=== PATIENT | female | born 1945 | race Caucasian/White ===

== ENCOUNTER 2023-11-02 16:24 | Emergency (ER) | payer OTHER, SELFPAY ==
[2023-11-02 16:39] VITALS: BP 160/80; PULSE 74; RESP 18; TEMP 36.3; O2SAT 100; BMI 26.4
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
[2023-11-02] MEDS: ACETAMINOPHEN 325 MG TABLET 650 MG PO (17:24)
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
== END 2023-11-02 18:45 | disposition home or self-care (01) ==
PROVIDERS: Emergency Provider Emergency Medicine; PCP Internal Medicine
DX: S16.1XXA Strain of muscle, fascia and tendon at neck level, initial encounter (principal); V44.5XXA Car driver injured in collision with heavy transport vehicle or bus in traffic accident, initial encounter; R51.9 Headache, unspecified; Z79.01 Long term (current) use of anticoagulants
CPT/HCPCS: 70450; 72125; 73030; 99284

== ENCOUNTER 2024-01-11 11:36 | Outpatient (OUT) | payer OTHER, SELFPAY ==
--- NOTE | 2024-01-11 11:41 | XR_ITS ---
The [address] [address] Patient Name: DEBBIE CURRY MRN: [id number] date: 1945 Sex: F Assigned Patient Location: LAB Current Patient Location: Accession/Order Number: [id number] Exam Date: 01/11/2024 11:45 Report Date: 01/12/2024 08:27 At the request of: RASHIDA ELDRIDEG Procedure: XR abdomen 1V EXAMINATION: XR abdomen 1V HISTORY: Gross Hematuria R31.0 COMPARISON: XR KUB 12/12/2022 FINDINGS: KIDNEY/URETER - RIGHT: 5 mm stone projecting over mid body. KIDNEY/URETER - LEFT: Several small stones projecting over superior pole. PELVIS: No appreciable ureteral stones. Stable pelvic calcifications favoring phleboliths. BOWEL: No abnormal dilation or deviation. BONES: No acute abnormality. Prior mechanical fusion and posterior decompression L4-5. OTHER: Negative. No abnormal gaseous collections. XR/XR abdomen 1V IMPRESSION: 1. Grossly stable bilateral nephrolithiasis. Electronically authenticated by: DERRICK ARANDA Date: 01/12/2024 08:27
== END 2024-01-11 11:37 | disposition home or self-care (01) ==
LOC: LAB 11:38
PROVIDERS: PCP Internal Medicine; Visit Provider Urology
DX: R31.0 Gross hematuria (principal); N20.0 Calculus of kidney
CPT/HCPCS: 74018; 87086; 87150; 87186

== ENCOUNTER 2024-06-10 11:00 | Outpatient (OUT) | payer OTHER, SELFPAY ==
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
--- OUTSIDE RECORDS SUMMARY | 2024-06-10 11:21 | XMS_ITS | CCD ---
Author Organization [facility] Care Team Providers Care Brazer Resistance Name Role Phone MD Jared Hedrick Primary Care Provider RAUL Hauser Attending Provider Filemon Villarreal Unavailable MAYURI BROWN Admitting Unavailable MAYURI BROWN Attending Unavailable FLORIDALMA, DR COLEMAN Primary Care Unavailable MAYURI BROWN Consulting Unavailable CHENTE ., DR FIELD Admitting Unavailable CHENTE ., DR FIELD Attending Unavailable FLORIDALMA, DR COLEMAN Primary Care Unavailable CHENTE ., DR FIELD Consulting Unavailable AUSTIN, DR ALFONSO Purcell Consulting Unavailable FLORIDALMA, DR COLEMAN Primary Care Unavailable FOZIA, DR AYALA Lujan Admitting Unavailable FOZIA, DR AYALA Lujan Attending Unavailable FOZIA, DR AYALA Lujan Consulting Unavailable JARED HEDRICK Primary Care Physician [phone] LOVE PATEL Attending Unavailable PCP, UNKNOWN Primary Care Unavailable DIANA RING Admitting Unavailable NADIANA HUI Attending Unavailable MICHAEL MAYORGA Referring Unavailable GERALD HUBBARD Attending Unavailable KATELIN ORTEGA Attending Unavailable JARED HEDRICK Attending Unavailable JARED HEDRICK Referring Unavailable WAGNER ALVAREZ Attending Unavailable MELLISA PAPPAS Attending Unavailable JARED HEDRICK Referring Unavailable Michael Mayorga Attending Unavailable ÁNGELA LEWIS Attending Unavailable Rashida ELDRIDGE Referring Unavailable Rashida ELDRIDGE Attending Unavailable Mukesh Mohamad ALuis Alberto Admitting Unavailable Monancy Mohamad ALuis Alberto Referring Unavailable Monancy Mohamad ALuis Alberto Attending Unavailable Dulce Holguin Attending Unavailable Allergies Allergy Classification Reported Allergen(s) Allergy Type Date of Onset Reaction(s) Facility (10 sources) Ciprofloxacin; Translations: [ciprofloxacin] Drug Allergy 04-07-20 15 Diarrhea, Unknown [facility] (1 source) Clindamycin Drug Allergy 04-29-20 21 Diarrhea [facility] (9 sources) Codeine; Translations: [Codeine] Drug Allergy 04-07-20 15 Vomiting, Nausea [facility] (1 source) levoFLOXacin Drug Allergy 05-24-20 22 Unknown Reaction [facility] (15 sources) Meperidine; Translations: [meperidine] Drug Allergy 04-07-20 15 Anxiety, Unknown, hyper [facility] (9 sources) moxifloxacin; Translations: [moxifloxacin] Drug Allergy 04-07-20 15 Diarrhea, Unknown [facility] (9 sources) Penicillins; Translations: [Penicillins] Allergy to substance 07-19-20 12 Rash [facility] (10 sources) Phenazopyridine; Translations: [phenazopyridine] Drug Allergy 07-19-20 12 Vomiting, Unknown, Nausea [facility] (16 sources) Promethazine; Translations: [promethazine] Drug Allergy 07-19-20 12 Hives, Unknown, AOF [facility] (1 source) Scallop - dietary Allergy to substance 04-29-20 [place] [facility] (2 sources) Sulfonamides (Antibiotic); Translations: [SULFA (SULFONAMIDE ANTIBIOTICS)] Allergy to substance 04-29-20 21 [facility] (13 sources) telithromycin; Translations: [telithromycin] Drug Allergy 04-07-20 15 Unknown Reaction, Unknown [facility] (11 sources) Tobramycin; Translations: [tobramycin] Drug Allergy 07-19-20 12 Hives, Unknown, Nausea [facility] (6 sources) traMADol; Translations: [tramadol] Drug Allergy 04-07-20 15 Vomiting, Unknown [facility] (2 sources) Iodinated Contrast Media; Translations: [IODINATED CONTRAST MEDIA] Propensity to adverse reactions 04-29-20 21 Fl[place] [facility] (1 source) avalox Allergy to substance 05-24-20 22 Unknown Reaction [facility] (1 source) phendzopyridine Allergy to substance 05-24-20 22 Unknown Reaction [facility] (1 source) uricet Allergy to substance 05-24-20 22 Unknown Reaction [facility] (2 sources) Codeine Drug Allergy Unknown [facility] [employer] Other (2 sources) Sulfacetamide / Sulfur Drug Allergy Unknown [employer] Other (2 sources) Dye SKILLED NURSING Green 3 Drug allergy Unknown [employer] Other (2 sources) Penicillian V Potassium Propensity to adverse reactions Unknown [employer] Other (2 sources) Dye SKILLED NURSING Blue [address] [facility] [employer] Other (2 sources) Dye SKILLED NURSING Yellow [address] [facility] [employer] Other (2 sources) Dye SKILLED NURSING Red 40 (Allura Red) Drug allergy Unknown [facility] [employer] Other (1 source) Ciprofloxacin Drug Allergy 04-07-20 15 [facility] (2 sources) Meperidine; Translations: [Demerol] Drug Allergy 04-07-20 15 [facility] (1 source) moxifloxacin Drug Allergy 04-07-20 15 [facility] (1 source) potassium citrate Drug Allergy 04-07-20 15 [facility] (1 source) Protamines Drug Allergy 04-07-20 15 [facility] (5 sources) Shellfish; Translations: [shellfish] Drug allergy (disorder) 04-07-20 15 Unknown [facility] (1 source) Sulfonamides (Antibiotic) Drug allergy (disorder) 04-07-20 15 [facility] (2 sources) telithromycin; Translations: [Ketek] Drug Allergy 04-07-20 15 [facility] (7 sources) Nalbuphine; Translations: [nalbuphine] Drug Allergy 04-11-20 23 rash [facility] (6 sources) potassium citrate; Translations: [potassium citrate] Drug Allergy 04-07-20 15 Unknown [facility] (7 sources) Protamine Sulfate (MCC); Translations: [protamine] Drug Allergy 04-07-20 15 Unknown [facility] (2 sources) Shellfish; Translations: [shellfish] Propensity to adverse reactions to substance 04-07-20 15 Unknown [facility] (6 sources) Sulfonamides (Antibiotic); Translations: [sulfa drugs] Drug allergy Eruption of skin (disorder) [facility] (6 sources) iodinated radiocontrast dyes; Translations: [iodinated radiocontrast agents] Drug allergy Nausea [facility] (1 source) SHELLFISH CONTAINING PRODUCTS; Translations: [SHELLFISH CONTAINING PRODUCTS] Propensity to adverse reactions to drug (disorder) 04-07-20 15 [facility] (1 source) Phenazopyridine; Translations: [Pyridium] Drug Allergy [facility] (1 source) Promethazine; Translations: [Phenergan] Drug Allergy [facility] Medications Current Medications Medication Drug Class(es) Dates Sig (Normalized) Sig (Original) acetaminophen 500 mg oral tablet (2 sources) Start: 06-28-2018 take 500 mg by mouth every six hours acetaminophen 500 mg, Oral, q6hr, Refills(s) 0, Pain Start Date: 02/04/19 Status: Ordered bifidobacterium infantis 4 mg oral capsule (1 source) Start: 04-18-2024 take 1 capsule by mouth once daily Align 4 mg oral capsule 4 mg = 1 cap(s), Oral, Daily, # 28 cap(s), Refills(s) 4, Pharmacy: [facility]/pharmacy #[id number], 162, cm, 04/18/24 9:43:00 EDT, Height/Length Dosing, 66, kg, 04/18/24 9:43:00 EDT, Weight Dosing Start Date: 04/18/24 Status: Ordered cholecalciferol 0.05 mg oral capsule (1 source) Vitamin D Start: 11-09-2018 take 1 capsule by mouth once daily Cholecalciferol (Vitamin D3) (Vitamin D3) 2,000 unit Capsule Active 2000 UNIT PO Daily November 09, 2018 1:00am citalopram 10 mg oral tablet (8 sources) Serotonin Reuptake Inhibitor Start: 06-28-2018 take 10 mg by mouth once daily citalopram 10 mg, Oral, Daily, Refills(s) 0, Depression Start Date: 02/04/19 Status: Ordered clobetasol propionate 0.0005 mg/mg topical ointment (5 sources) Corticosteroid Start: 12-12-2022 apply 30 g topically every twelve hours as needed for pain clobetasol propionate 0.05% top oint See Instructions, 30 gm, Refill(s) 2, Apply to affected area every 12 hours as needed for pain/discomfort., [id number], 165, cm, 12/12/22 13:46:00 EST, Height/Length Dosing, 70.4, kg, 12/12/22 13:46:00 EST, Weight Dosing Start Date: 12/12/22 Status: Ordered colesevelam hydrochloride 625 mg oral tablet (2 sources) Bile Acid Sequestrant Start: 04-18-2024 take 3 tablets by mouth twice daily Welchol 625 mg Tab 1,875 mg = 3 tab(s), Oral, BID, # 180 tab(s), Refills(s) 0, Pharmacy: [facility], 162, cm, 04/18/24 9:43:00 EDT, Height/Length Dosing, 66, kg, 04/18/24 9:43:00 EDT, Weight Dosing Start Date: 04/18/24 Status: Ordered cyclobenzaprine hydrochloride 10 mg oral tablet (2 sources) Muscle Relaxant take 0.5-1 tablets by mouth three times daily as needed Cyclobenzaprine HCl 10 MG TAKE 1/2-1 TABLET BY MOUTH 3 TIMES A DAY NEEDED Oral for 30 Active dicyclomine hydrochloride 20 mg oral tablet (2 sources) Anticholinergic Start: 04-25-2021 take 20 mg by mouth four times daily Dicyclomine Active 20 MG PO Four times daily April 25, 2021 12:00am Start: 06-28-2018 End: 11-09-2018 take 10 mg by mouth four times daily Dicyclomine Discontinued 10 MG PO Four times daily June 28, 2018 12:00am November 09, 2018 4:51pm docusate sodium 100 mg oral capsule (1 source) Start: 04-29-2021 take 1 capsule by mouth twice daily Docusate Sodium (Colace) 100 mg capsule Active 100 MG PO Twice daily 60 April 29, 2021 12:00am doxycycline monohydrate 100 mg oral tablet (2 sources) Tetracycline- class Drug Start: 04-18-2024 doxycycline monohydrate 100 mg oral tablet Refills(s) 0 Start Date: 04/18/24 Status: Ordered Start: 12-12-2022 take 1 capsule by mo [facility] once daily doxycycline hyclate 100 mg Cap 100 mg = 1 cap(s), Oral, Daily, Take 1 pill the day before the procedure and 1 pill after the procedure, # 2 cap(s), Refills(s) 0, Pharmacy: [id number], 165, cm, 12/12/22 13:46:00 EST, Height/Length Dosing, 70.4, kg, 12/12/22 13:46:00 EST, W... Start Date: 12/12/22 Status: Ordered empagliflozin 25 mg / linagliptin 5 mg oral tablet (2 sources) Dipeptidyl Peptidase 4 Inhibitor, Sodium-Glucose Cotransporter 2 Inhibitor Start: 01-03-2020 take 1 tablet by mouth once daily Empagliflozin-Linagliptin (Glyxambi) 25-5 mg Tablet Active 1 TAB PO Daily April 25, 2021 12:00am 12 hr fexofenadine hydrochloride 60 mg / pseudoephedrine hydrochloride 120 mg extended release oral tablet (1 source) alpha-Adrenergic Agonist, Histamine-1 Receptor Antagonist Start: 06-28-2018 take 1 tablet by mouth every twelve hours, then take 1 tablet by mouth every twelve hours Fexofenadine-Pseudoephedrin e (Haydee-D 12 Hour) 60-120 mg Tablet Extended Release 12 Hr Active 1 TAB PO Q12H June 28, 2018 12:00am Fish Oils (2 sources) take 1 capsule by mouth once daily Fish Oil 1200 MG 1 capsule Orally Once a day for 30 day(s) Active glimepiride 4 mg oral tablet (7 sources) Sulfonylurea Start: 12-12-2022 take 1 tablet by mouth once daily glimepiride 4 mg Tab 4 mg = 1 tab(s), Oral, Daily, Blood glucose Start Date: 12/12/22 Status: Ordered Start: 06-28-2018 take 4 mg by mouth once daily Glimepiride Active 4 MG PO Daily June 28, 2018 12:00am take 2 tablets by [facility] every twenty-four hours Glimepiride 4 MG 2 tablets Orally Once a day Active Glyxamb1 25/5 mg 25/5 mg (2 sources) Glyxamb1 25/5 mg 25/5 mg 90 orally daily Active hydroCHLOROthiazide 25 mg oral tablet (8 sources) Thiazide Diuretic Start: 018 take 1 tablet by mouth once daily hydrochlorothiazide 25 mg Tab 25 mg = 1 tab(s), Oral, Daily, Refills(s) 0, High blood pressure Start Date: 03/22/23 Status: Ordered levothyroxine (9 sources) l-Thyroxine Start: 019 take 88 ug by mouth once daily levothyroxine 88 mcg, Oral, Daily, Refills(s) 0, Thyroid Start Date: 02/04/19 Status: Ordered Start: 02-04-2019 levothyroxine 100 microgram, Oral, Daily, Refills(s) 0, Thyroid Start Date: 02/04/19 Status: Ordered Start: 06-28-2018 take 88 ug by mouth once daily Levothyroxine Active 88 MCG PO Daily June 28, 2018 12:00am Start: 06-28-2018 End: 11-09-2018 take 1 tablet by mouth once daily Levothyroxine (Levoxyl) 100 mcg Tablet Discontinued 100 MCG PO Daily June 28, 2018 12:00am November 09, 2018 4:52pm take 1 tablet by [facility] once daily in the morning Levothyroxine Sodium 100 MCG 1 tablet on an empty stomach in the morning Orally Once a day Active Magnesium (2 sources) take 2 tablets by mouth once daily Magnesium 200 MG 2 tablets with a meal Orally Once a day unsure of dose Active metFORMIN hydrochloride 500 mg oral tablet (1 source) Biguanide Start: 04-29-20 21 take 500 mg by mouth once daily Metformin Active 500 MG PO Daily 05 05April 29, 2021 12:00am mirtazapine 15 mg oral tablet (8 sources) Start: 06-28-20 18 take 15 mg by mouth once daily at bedtime mirtazapine 15 mg, Oral, Once a day (at bedtime), Refills(s) 0, Depression Start Date: 02/04/19 Status: Ordered nitrofurantoin, macrocrystals 25 mg / nitrofurantoin, monohydrate 75 mg oral capsule (2 sources) Nitrofuran Antibacterial Start: 01-15-20 24 End: 01-20-20 24 take 1 capsule by mouth twice daily Macrobid 100 mg Cap 100 mg = 1 cap(s), Oral, BID, X 5 day(s), # 10 cap(s), Refills(s) 0, Pharmacy: [facility]/pharmacy #[id number], 162, cm, 03/22/23 13:18:00 EDT, Height/Length Dosing, 68.6, kg, 03/22/23 13:18:00 EDT, Weight Dosing Start Date: 01/15/24 Stop Date: 01/20/24 Status: Ordered Start: 04-25-2021 take 1 capsule by mo [facility] every twelve hours at mealtime Nitrofurantoin Monohyd/M-Cryst (Macrobid) 100 mg Capsule Active 100 MG PO Q12H April 25, 2021 12:00am Administer with a meal/food: swallow whole; do not open, crush, dissolve, or chew omeprazole 40 mg delayed release oral capsule (3 sources) Proton Pump Inhibitor Start: 02-05-2019 take 1 capsule by mouth once daily omeprazole 40 mg Cap-DR 40 mg = 1 cap(s), Oral, Daily, # 30 cap(s), Refills(s) 1, [id number] Start Date: 02/05/19 Status: Ordered ondansetron 4 mg oral tablet (1 source) Serotonin-3 Receptor Antagonist Start: 04-30-2021 take 1 tablet by mouth every eight hours Ondansetron Hcl (Zofran) 4 mg tablet Active 4 MG PO Q8H 14 April 30, 2021 12:00am oxybutynin chloride 5 mg oral tablet (2 sources) Cholinergic Muscarinic Antagonist oxyBUTYnin Chloride 5 MG as directed Orally unsure of dose Active pantoprazole 40 mg delayed release oral tablet (3 sources) Proton Pump Inhibitor Start: 01-17-2024 End: 10-13-2024 take 1 tablet by mouth once daily Pantoprazole [address] Tab 40 mg = 1 tab(s), Oral, Daily, X 90 day(s), # 90 tab(s), Refills(s) 2, Pharmacy: [facility], 162.5, cm, 01/17/24 14:37:00 EDT, Height/Length Dosing, 67, kg, 01/17/24 14:37:00 EDT, Weight Dosing Start Date: 01/17/24 Stop Date: 10/13/24 Status: Ordered pioglitazone 15 mg oral tablet (4 sources) Peroxisome Proliferator Receptor alpha Agonist, Peroxisome Proliferator Receptor gamma Agonist, Thiazolidinedione Start: 03-22-2023 take 1 tablet by mouth once daily pioglitazone 15 mg Tab 15 mg = 1 tab(s), Oral, Daily, Refills(s) 0, Blood glucose Start Date: 03/22/23 Status: Ordered PreserVision AREDS (7 sources) Start: 12-12-2022 PreserVision AREDS See Instructions, Refill(s) 0, Prophylaxis Start Date: 12/12/22 Status: Ordered Start: 12-12-2022 PreserVision A REDS Refill(s) 0 Start Date: 12/12/22 Status: Ordered PreserVision ARE DS as directed Orally Active Psyllium Husk (Metamucil) 0.4 gram capsule (1 source) Start: 04-29-2021 Psyllium Husk (Metamucil) 0.4 gram capsule Active 0.4 GM PO Daily April 29, 2021 12:00am rivaroxaban (9 sources) Factor Xa Inhibitor Start: 08-14-2023 take 1 tablet by mouth once daily Xarelto 20 20 one tablet PO Daily for 90 days Jul, Active Start: 04-20-2022 take 1 tablet by [facility] every twenty-four hours Xarelto 10 MG 1 tablet Orally Once a day for 30 day(s) Mar, Active Start: 01-03-2020 take 1 tablet by [facility] once daily in the evening Xarelto 20 mg oral tablet 20 mg = 1 tab(s), Oral, qPM, Refills(s) 0, Blood Thinner Start Date: 01/03/20 Status: Ordered Start: 12-13-2019 End: 04-25-2021 take 1 tablet by mouth twice daily at mealtime Rivaroxaban (Xarelto) 15 mg tablet Discontinued 15 MG PO Twice daily 42 December 13, 2019 1:00am April 25, 2021 7:55am must administer with a meal/food semaglutide 7 mg oral tablet (4 sources) Start: 01-17-2024 Rybelsus 7 mg oral tablet Refills(s) 0, Blood glucose Start Date: 01/17/24 Status: Ordered Rybelsus 7 MG 1 tablet at least 30 minutes before first food, beverage or other oral medicine of the day Orally Once a day Active simvastatin 20 mg oral tablet (6 sources) HMG-CoA Reductase Inhibitor Start: 06-28-2018 simvastatin See Instructions, 20 mg Oral Monday, Monday, Monday, Refills(s) 0, High cholesterol Start Date: 02/04/19 Status: Ordered solifenacin succinate 5 mg oral tablet (10 sources) Cholinergic Muscarinic Antagonist Start: 01-10-2023 take 1 tablet by mouth once daily Vesicare 5 mg Tab 5 mg = 1 tab(s), Oral, Daily, # 90 tab(s), Refills(s) 3, Pharmacy: [id number], 165, cm, 12/12/22 13:46:00 EST, Height/Length Dosing, 70.4, kg, 12/12/22 13:46:00 EST, Weight Dosing Start Date: 01/10/23 Status: Ordered Start: 12-14-2022 take 1 tablet by [facility] every other day Vesicare 5 mg Tab 5 mg = 1 tab(s), Oral, Every other day, # 30 tab(s), Refills(s) 11, Pharmacy: [id number], 165, cm, 12/12/22 13:46:00 EST, Height/Length Dosing, 70.4, kg, 12/12/22 13:46:00 EST, Weight Dosing Start Date: 12/14/22 Status: Ordered Tylenol 8 Hour 650 MG (2 sources) take 1 tablet by mouth every eight hours as needed Tylenol 8 Hour 650 MG 1 tablet as needed Orally every 8 hrs Active Vitamin D3 (5 sources) Start: 01-03-2020 take 50 ug by mouth once daily Vitamin D3 50 mcg, Oral, Daily, Refills(s) 0, Prophylaxis Start Date: 01/03/20 Status: Ordered Start: 01-03-2020 Vitamin D3 Ref ills(s) 0 Start Date: 01/03/20 Status: Ordered Vitamin D3 [id number] UNIT/GM (2 sources) Vitamin D3 76391 00 UNIT/GM as directed Active Completed/Discontinued Medications Medication Drug Class(es) Dates Sig (Normalized) Sig (Original) ascorbic acid 113 mg / beta carotene 7160 mg / cuprous oxide 0.4 mg / dl-alpha tocopheryl acetate 100 unt / zinc oxide 17.4 mg oral tablet (1 source) Vitamin C Start: 06-28-2018 End: 04-25-2021 take 2 tablets by mouth twice daily Vitamins A,C,U-Rstc-Fzwrvh (Preservision Areds) 7,160-113-100 [id number] Tablet Discontinued 2 TAB PO Twice daily June 28, 2018 12:00am April 25, 2021 7:55am SITagliptin 100 mg oral tablet (1 source) Dipeptidyl Peptidase 4 Inhibitor Start: 06-28-2018 End: 04-25-2021 take 1 tablet by mouth once daily Sitagliptin (Januvia) 100 mg Tablet Discontinued 100 MG PO Daily June 28, 2018 12:00am April 25, 2021 7:55am Problems Active Problems Problem Classification Problem Date Documented Da te Episodic/Chronic Abdominal pain (4 sources) Abdominal pain; Translations: [Unspecified abdominal pain] Onset: 01-17-2024 04-25-2021 Episodic Calculus of urinary tract (9 sources) Calculus of kidney; Translations: [Kidney stone] Onset: 12-12-2022 Episodic Cataract (4 sources) Age-related nuclear cataract, left eye; Translations: [AGE-REL NUCLEAR CATARACT LT EYE] Onset: 03-03-2022 Chronic Diabetes mellitus without complication (7 sources) Diabetes mellitus; Translations: [Type 2 diabetes mellitus without complications] Onset: 04-20-2022 04-29-2021 Chronic Diabetes mellitus without complication (6 sources) Glycosuria; Translations: [Glycosuria] 04-29-2021 Episodic Disorders of lipid metabolism (6 sources) Pure hypercholesterolemia, unspecified; Translations: [Hyperlipidemia] Onset: 03-09-2022 12-25-2019 Chronic Esophageal disorders (12 sources) Mejia's esophagus; 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] Onset: 01-17-2024 Chronic Essential hypertension (6 sources) Essential (primary) hypertension; Translations: [Hypertensive disorder] Onset: 04-20-2022 12-25-2019 Chronic Fluid and electrolyte disorders (1 source) Absolute hypovolemia; Translations: [Hypovolemia] 04-29-2021 Episodic Genitourinary symptoms and ill-defined conditions (20 sources) Incontinence; Translations: [Incontinence without sensory awareness] 01-03-2020 Chronic Genitourinary symptoms and ill-defined conditions (20 sources) Delay when starting to pass urine; Translations: [Increased frequency of urination] 01-03-2020 Episodic Noninfectious gastroenteritis (4 sources) Noninfectious enteritis; Translations: [Noninfective gastroenteritis and colitis, unspecified] Onset: 01-17-2024 Episodic Osteoarthritis (5 sources) Osteoarthritis 12-25-2019 Chronic Other and unspecified benign neoplasm (4 sources) History of polyp of colon; Translations: [Personal history of colonic polyps] Onset: 01-17-2024 Episodic Other and unspecified benign neoplasm (1 source) Lipoma of intra-abdominal organs; Translations: [Benign lipomatous neoplasm of intra-abdominal organs] Onset: 04-18-2024 Episodic Other and unspecified benign neoplasm (1 source) Lipoma of stomach 04-18-2024 Episodic Other diseases of bladder and urethra (5 sources) Urethral stricture 12-25-2019 Episodic Other diseases of kidney and ureters (5 sources) Cyst of kidney 01-03-2020 Episodic Other disorders of stomach and duodenum (2 sources) Disease of stomach and duodenum, unspecified; Translations: [Disease of stomach and duodenum, unspecified] Onset: 02-23-2024 Episodic Other gastrointestinal disorders (1 source) Constipation; Translations: [Constipation, unspecified] 04-29-2021 Episodic Other gastrointestinal disorders (4 sources) Dysphagia; Translations: [Dysphagia, unspecified] Onset: 01-17-2024 Episodic Other gastrointestinal disorders (6 sources) Incontinence of feces; Translations: [Full incontinence of feces] Onset: 01-17-2024 Episodic Other non-traumatic joint disorders (2 sources) Pain in right shoulder; Translations: [Pain in right shoulder] Onset: 02-20-2023 Episodic Other non-traumatic joint disorders (2 sources) Pain in left shoulder; Translations: [Pain in left shoulder] Onset: 02-20-2023 Episodic Other nutritional; endocrine; and metabolic disorders (1 source) Abnormal weight loss; Translations: [Abnormal weight loss] Onset: 01-17-2024 Episodic Other nutritional; endocrine; and metabolic disorders (3 sources) Unintentional weight loss 01-17-2024 Episodic Other screening for suspected conditions (not mental disorders or infectious disease) (1 source) Increased ketone bodies; Translations: [Other specified abnormal findings of blood chemistry] 04-29-2021 Episodic Phlebitis; thrombophlebitis and thromboembolism (5 sources) Personal history of other venous thrombosis and embolism; Translations: [H/O: thrombosis] Onset: 04-20-2022 03-22-2023 Episodic Pulmonary heart disease (3 sources) Pulmonary thromboembolism; Translations: [Other pulmonary embolism without acute cor pulmonale] 12-13-2019 Episodic Residual codes; unclassified (1 source) Acquired absence of organ; Translations: [Acquired absence of other specified parts of digestive tract] Onset: 04-18-2024 Episodic Thyroid disorders (5 sources) Hypothyroidism 12-25-2019 Chronic Unclassified (5 sources) Drug therapy finding 01-03-2020 Unclassified (3 sources) Finding of sensation of abdomen 01-17-2024 Urinary tract infections (5 sources) Chronic cystitis 12-25-2019 Chronic Urinary tract infections (11 sources) Acute urinary tract infection; Translations: [Urinary tract infection, site not specified] 04-25-2021 Episodic Past or Other Problems Problem Classification Problem Date Documented Da te Episodic/Chronic Other aftercare (1 source) senior living (current) use of anticoagulants; Translations: [SENIOR LIVING CURRNT USE ANTICOAGULANTS] Onset: 04-20-2022 Episodic Other aftercare (1 source) Other snf (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; Translations: [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 DRUG THERAPY] Onset: 04-20-2022 Episodic Other upper respiratory disease (4 sources) Epistaxis; Translations: [EPISTAXIS] Onset: 04-18-2022 Episodic Residual codes; unclassified (1 source) Acquired absence of other specified parts of digestive tract; Translations: [ACQ ABSENCE OTH PART DIGESTV TRACT] Onset: 03-09-2022 Episodic Results Test Name Value Interpretation Reference Range Facility Ambulatory Visit Summaryon 0 04-18-2024 Ambulatory Visit Summary CHELSEA CURRY :1945 Visit Date:04/18/2024 Ambulatory Visit Instructions Your Diagnosis Abdominal cramping S/P cholecystectomy Stool incontinence Lipoma of stomach Your Care Team Attending Physician - Mukesh SILVER, Michael Canseco Primary Care Physician - JARED HEDRICK MD This Is Your Medications List bifidobacterium infantis (Align 4 mg oral capsule) colesevelam (Welchol 625 mg Tab) colesevelam (Welchol 625 mg Tab) Contact prescribing physician if questions or concerns cholecalciferol (Vitamin D3) citalopram clobetasol topical (clobetasol propionate 0.05% top oint) doxycycline (doxycycline monohydrate 100 mg oral tablet) glimepiride (glimepiride 4 mg Tab) hydrochlorothiazide (hydrochlorothiazide 25 mg Tab) levothyroxine mirtazapine multivitamin with minerals (PreserVision AREDS) pantoprazole (Pantoprazole [address] Tab) pioglitazone (pioglitazone 15 mg Tab) rivaroxaban (Xarelto 20 mg oral tablet) semaglutide (Rybelsus 7 mg oral tablet) simvastatin solifenacin (Vesicare 5 mg Tab) solifenacin (Vesicare 5 mg Tab) Procedures Performed Colonoscopy (01/30/2024), Esophagogastroduodenoscop y (01/30/2024), Colonoscopy (01/13/2017), Cystoscopy (04/27/2016), Cystoscopic removal of ureteric stent (04/20/2012), Cystoscopic insertion of ureteric stent (04/06/2012), ESWL - Extracorporeal shockwave lithotripsy for renal calculus (04/01/2012), Cystoscopy and retrograde pyelography (09/29/2010), ESWL - Extracorporeal shockwave lithotripsy for renal calculus (12/31/2009), ESWL - Extracorporeal shockwave lithotripsy for renal calculus (12/16/2009), Cystoscopic laser lithotripsy of ureteric calculus (07/2009), Cystoscopic removal of ureteric stent (07/30/2009), Cystoscopic insertion of ureteric stent (06/2009), Rotator cuff repair (02/2008), Cystoscopic laser lithotripsy of ureteric calculus (11/2006), Cystoscopic removal of ureteric stent (11/2006), ESWL - Extracorporeal shockwave lithotripsy for renal calculus (01/2006), ESWL - Extracorporeal shockwave lithotripsy for renal calculus (03/2005), Cystoscopic insertion of ureteric stent (08/2002), ESWL - Extracorporeal shockwave lithotripsy for renal calculus (08/2002), Cystoscopic insertion of ureteric stent (07/2002), ESWL - Extracorporeal shockwave lithotripsy for renal calculus (07/2002), Laminectomy with spinal fusion (1998), Appendectomy, Carpal tunnel release, Cholecystectomy, Excision of bursa, Hysterectomy, Nasal sinus procedure, Operative procedure on hand, Repair of meniscus, T and A (tonsillectomy and adenoidectomy) postoperative education. Discharge Vitals Heart Rate (Peripheral) 84 Respiratory Rate 16 Blood Pressure 119/68 Height 162 cm Height 64 in Weight 66 kg Weight 145.2 lb BMI 25.15 Medications What How Much When Why Instructions New bifidobacterium infantis (Align 4 mg oral capsule) 1 Capsules By Mouth Every day Abdominal cramping S/P cholecystectomy Stool incontinence Lipoma of stomach Refills: 4 Pickup at [facility]/pharmacy #[id number] New colesevelam (Welchol 625 mg Tab) 3 Tablets By Mouth 2 times a day Abdominal cramping S/P cholecystectomy Stool incontinence Lipoma of stomach Refills: 3 Pickup at [facility]/pharmacy #[id number] New colesevelam (Welchol 625 mg Tab) 3 Tablets By Mouth 2 times a day Abdominal cramping S/P cholecystectomy Stool incontinence Lipoma of stomach Pickup at [facility] Unchanged cholecalciferol (Vitamin D3) 50 Microgram By Mouth Every day Contact prescribing physician if questions or concerns Unchanged citalopram 10 Milligram By Mouth Every day Contact prescribing physician if questions or concerns Unchanged clobetasol topical (clobetasol propionate 0.05% top oint) See instructions Apply to affected area every 12 hours as needed for pain/ discomfort. Contact prescribing physician if questions or concerns Unchanged doxycycline (doxycycline monohydrate 100 mg oral tablet) Contact prescribing physician if questions or concerns Unchanged glimepiride (glimepiride 4 mg Tab) 1 Tablets By Mouth Every day Contact prescribing physician if questions or concerns Unchanged hydrochlorothiazide (hydrochlorothiazide 25 mg Tab) 1 Tablets By Mouth Every day Contact prescribing physician if questions or concerns Unchanged levothyroxine 88 Microgram By Mouth Every day Contact prescribing physician if questions or concerns Unchanged mirtazapine 15 Milligram By Mouth Once a day (at bedtime) Contact prescribing physician if questions or concerns Unchanged multivitamin with minerals (PreserVision AREDS) See instructions Contact prescribing physician if questions or concerns Unchanged pantoprazole (Pantoprazole [address] Tab) 1 Tablets By Mouth Every day Mejia's esophagus Duration: 90 Days Contact prescribing physician if questions or concerns Unchanged pioglitazone (pioglitazone 15 mg Tab) 1 Tablets By Mouth Every day Contact prescribing physician if questions or concerns Unchanged kosta (more content not included)... Normal [facility] Gastroenterology Office/Clin ic Noteon 04-18-2024 Gastroenterology Office/Clinic Note Chief Complaint follow up to egd/colon HPI Staff Patient is a 78 year old female here today to review results from EGD and colonoscopy. Patient also c/o still having issues diarrhea abdominal cramping EUS Results: Dr Ring: 02/23/2024 A. Duodenum, biopsy: - duodenal mucosa with no significant histologic abnormality. B. Stomach, submucosal nodule, endoscopic mucosal resection: - submucosal lipoma. - no evidence of dysplasia. Result comments: Gastric lesion. 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 (ascending colon)-no treatment needed Random colon polyps obtained Internal hemorrhoids Normal TI EGD Findings Z-line was irregular at 37 cm Nonobstructing Schatzki's ring at 37 cm; disrupted using biopsy forceps LA grade C esophagitis status post biopsies Hiatal hernia measuring 3 cm Patchy gastropathy with scattered erosions and stigmata of recent bleeding status post biopsies Heaped up lesion in the stomach body concerning for lipoma versus GIST Small ulcer in the prepyloric region with hematin clot status post biopsies Erythematous mucosa with few erosions status post biopsies Normal first and second duodenum segment status post biopsies Pathology: A: DUODENAL BIOPSY: ? DUODENAL MUCOSA WITHIN NORMAL LIMITS. B: ESOPHAGEAL BIOPSY: ? REACTIVE GASTROESOPHAGEAL JUNCTION WITH MODERATE CHRONIC ACTIVE INFLAMMATION. ? NO INTESTINAL METAPLASIA IDENTIFIED. C: GASTRIC BIOPSY: ? ANTRAL MUCOSA WITH MODERATE CHRONIC ACTIVE GASTRITIS AND REGENERATIVE CHANGES. ? GASTRIC BODY MUCOSA WITH MILD CHRONIC INFLAMMATION. ? NO INTESTINAL METAPLASIA IDENTIFIED. ? NO H. PYLORI MICROORGANISMS IDENTIFIED WITH IMMUNOSTAIN. D: DESCENDING COLON POLYP, POLYPECTOMY ? COLONIC MUCOSA WITH HYPERPLASTIC CHANGES. E: ASCENDING COLON POLYP, POLYPECTOMY: ? COLON MUCOSA WITH ADENOMATOUS CHANGES. F: RANDOM COLON BIOPSY: ? COLONIC MUCOSA WITH LYMPHOID AGGREGATES. CLAUDINE Cardona Assessment/Plan: 01/17/2024 1. Chronic diarrhea (K52.9: Noninfective gastroenteritis and colitis, unspecified) Watery diarrhea for years, worse in the last 1.5 years. Is having 5-8 BMs daily. Occasional loose stool consistency of mashed potato at times. Hx. cholecystectomy 27 years ago. Previously tried Questran in past that she reports did not help her diarrhea. Previous colonoscopy with Dr. Copeland at [facility] 01/13/2017 revealed 5 mm sessile sigmoid polyp removed, sigmoid colon biopsy revealed hyperplastic polyp, ascending colon biopsy revealed no significant pathologic changes, no evidence of active colitis, rectal biopsy revealed no significant pathologic changes, no evidence of active colitis. Denies knowledge of FH crohn's or ulcerative colitis. Ordered stool testing to evaluate for infectious process. Ordered Colonoscopy to evaluate for colitis, IBD, colon polyps/cancer. Previous anorectal manometry 09/2017 revealed weak anal sphincter pressure at rest and during squeezing. Educated regarding use of fiber supplementation daily- metamucil 2 caps daily- separate 2 hours from other medications. Educated regarding kegel exercises. Reportedly had previous labs completed recently- will see if we have record regarding in outside records. Takes Xarelto- will request hold time recommendations regarding Xarelto from prescribing provider prior to colonoscopy. 2. Fecal incontinence (R15.9: Full incontinence of feces) Has fecal incontinence and fecal urgency associated with watery diarrhea. Mucus in stool at times. Is having 5-8 BMs daily. Occasional loose stool consistency of mashed potato at times. Previous colonoscopy with Dr. Copeland at [facility] 01/13/2017 revealed 5 mm sessile sigmoid polyp removed, sigmoid colon biopsy revealed hyperplastic polyp, ascending colon biopsy revealed no significant pathologic changes, no evidence of active colitis, rectal biopsy revealed no significant pathologic changes, no evidence of active colitis. Ordered stool testing to evaluate for infectious process. 3. Abdominal cramping (R10.9: Unspecified abdominal pain) Is having rare occasions of lower abdominal cramping prior to having a BM- improves after. 4. Unintentional weight loss (R63.4: Abnormal weight loss) Per PCP outside record- patient with unintentional weight loss of 17 pounds in the last 6 months. 5. Mejia's esophagus (K22.70: Mejia's esophagus without dysplasia) Previous EGD 02/05/2019 revealed distal esophageal schatzki's ring- dilated, nodular mucosa in Z-line, normal gastric mucosa, small HH, normal duodenal mucosa, biopsy of nodular mucosa at z-line revealed intestinal metaplasia, consistent with mejia's esophagus, moderate chronic active inflammation, negative for dysplasia. Patient reports she was (more content not included)... Normal [facility] Comment on above: Result Comment: Elec tronically Signed By: Mukesh SILVER, Michael Canseco\.br\Date and Time Signed: 04/18/24 10:42 EDT Operative Reporton Operative Report [id number] Normal [facility] Pathology Noteon 03-08-2024 Pathology Note [id number] Normal [facility] HISTOLOGY - TISSUE EXAMon LAB AP CASE REPORT Normal [facility] Comment on above: Result Comment: Surg ical Pathology Case: [id number] Authorizing Provider: Diana Ring MD Collected: 02/23/2024 1232 Ordering Location: [facility] Received: 02/23/2024 1434 [facility] Pathologist: Monica Philip MD Specimens: A) - Small Intestine, Duodenum, r/o celiac B) - Gastric, gastric submucosal nodule r/o adenoma Performed By: #### L [id number] #### [facility] (BEAKER) [address] [place] [address] LAB AP CLINICAL INFORMATION Order Diagnoses Normal [facility] Comment on above: Result Comment: K31. 9 - Gastric lesion [ICD-10-CM] Performed By: #### L [id number] #### [facility] ([facility]AKER) [address] [place] [address] LAB AP GROSS DESCRIPTION Normal [facility] Comment on above: Result Comment: A. S mall Intestine, Duodenum. Part A is received in formalin labeled with the patient's name Chelsea Curry and duodenum, rule out celiac. It consists of 5 mackey-pink, irregular pieces of mucosal tissue ranging from 0.2 cm to 0.4 cm in greatest dimension. The specimen is submitted in toto in 1 cassette. [facility] [employer] [facility] Student [facility] Holli Gastric. Part B is received in formalin labeled with the patient's name Chelsea Curry and gastric submucosal nodule rule out adenoma. It consists of a 1.2 x 1.2 x 0.6 cm, mackey-brown, ovoid, polypoid piece of tissue that is pinned to a surgical board. The mucosal surface is mackey-brown and smooth with focal areas of brown discoloration. The resection margin is inked black and the specimen is serially sectioned to reveal a mackey-yellow, well-circumscribed, homogenous, 0.9 x 0.9 x 0.5 cm, ovoid nodule underlying the mucosal tissue that abuts the deep margin. The tips are further sectioned perpendicularly and the cut surface is inked red to be embedded down by histology. The specimen is submitted entirely as follows: Cassette summary: B1: Tip 1, bisected perpendicular B2: Tip 2, trisected perpendicular B3: Remainder of specimen, sequentially [facility] [employer] [facility] Student Brent [facility] Performed By: #### L [id number] #### [facility] ([facility]) [address] [place] [address] LAB AP MICROSCOPIC DESCRIPTION Microscopic examination performed. [facility] Comment on above: Performed By: #### L [id number] #### [facility] [address] [place] [address] LAB AP REPORT FINAL DIAGNOSIS NARRATIVE Normal [facility] Comment on above: Result Comment: A. D uodenum, biopsy: - Duodenal mucosa with no significant histologic abnormality. B. Stomach, submucosal nodule, endoscopic mucosal resection: - Submucosal lipoma. - No evidence of dysplasia. Performed By: #### L [id number] #### [facility] ([facility]) [address] [place] [address] [facility] 02-23-2024 ----- ----- Attestation signed by Diana Ring MD at 02/23/2024 12:08 PM I personally saw and examined the patient on the same date of service as resident/fellow . I discussed the findings and therapeutic plan with the resident/fellow . I agree with the documentation, except for any edits/updates below. Assessment/Plan This is 78 year old underwent EGD at outside hospital on 11/2023 that revealed Non obstruction schatzki ring at 37 cm from incisors, disrupted with biopsy forceps. There was lesion in the stomach body concerning for lipoma vs GIST presenting today for EGD/EUS possible EMR. Plan: EGD/EUS with possible EMR. ----- History Of Present Illness This is 78 year old underwent EGD at outside hospital on 11/2023 that revealed Non obstruction schatzki ring at 37 cm from incisors, disrupted with biopsy forceps. There was lesion in the stomach body concerning for lipoma vs GIST presenting today for EGD/EUS with possible EMR. Past Medical History She has a past medical history of Abdominal cramping, Adverse effect of anesthesia, Mejia's esophagus, Chronic cystitis, Chronic diarrhea, Colon polyp, Diabetes mellitus (CMS/HCC), Dysphagia, Fecal incontinence, GERD (gastroesophageal reflux disease), Glucosuria, Hyperlipidemia, Hypertension, Hypothyroidism, Kidney stones, Mixed incontinence, OA (osteoarthritis), PONV (postoperative nausea and vomiting), Unintentional weight loss, and UTI (urinary tract infection). Surgical History She has a past surgical history that includes Colonoscopy; Cystoscopy; Lithotripsy; Rotator cuff repair; Spinal fusion; Carpal tunnel release; Appendectomy; Cholecystectomy; Hysterectomy; Sinus surgery; Adenoidectomy; Tonsillectomy; and Hand surgery. Social History She reports that she has never smoked. She has never used smokeless tobacco. She reports that she does not drink alcohol and does not use drugs. Family History No family history on file. Allergies Ciprofloxacin, Iodinated contrast media, Promethazine, Protamine, Shellfish containing products, Telithromycin, Codeine, Meperidine, Nalbuphine, Penicillins, Phenazopyridine, Sulfa (sulfonamide antibiotics), and Tobramycin Medications (Not in a hospital admission) Review of Systems Last Recorded Vitals Visit Vitals Pulse 70 Temp 36.4 ???C (97.5 ???F) (Temporal) Resp 14 Ht 1.626 m (5' 4 ) Wt 67.8 kg (149 lb 7.6 oz) LMP (LMP Unknown) SpO2 98% BMI 25.66 kg/m??? OB Status Postmenopausal Smoking Status Never BSA 1.75 m??? Physical Exam Relevant Lab Results No results found for: NA , K , CL , CO2 , BUN , CREATININE , GLUCOSE , CALCIUM , ANIONGAP , EGFR , BCR Relevant Imaging Results No image results found. Assessment/Plan This is 78 year old underwent EGD at outside hospital on 11/2023 that revealed Non obstruction schatzki ring at 37 cm from incisors, disrupted with biopsy forceps. There was lesion in the stomach body concerning for lipoma vs GIST presenting today for EGD/EUS possible EMR. Plan: EGD/EUS with possible EMR. Normal [facility] POCT GLUCOSE METER UNSOLICIT ED RESULTSon 02-23-2024 Glucose [Mass/Vol] 164 mg/dL High 70-105 [facility] Comment on above: Order Comment: Waive d Testing in the ED is performed under the ED CLIA certificate #[id number]. Result Comment: pbar retcorson Performed By: #### L [id number] #### [facility] ([facility]) [address] [place] [address] Prep for Procedureon 024 Prep for Procedure [id number] Chelsea Curry 1945 F Date Provider Department Center 02/16/2024 DIANA KC [facility] No family history on file Normal [facility] 36on 02-14-2024 36 02-14-24 @ 1120 Spoke with patient to let her know that I have the okay for her to hold her Xarelto for 2 days prior to her EGD/EUS on January. Patient verbalized that she will start holding it on the 20 of February. Normal [facility] Telephoneon 02-14-2024 Telephone [id number] Chelsea Curry 1945 F Date Provider Department Center 02/14/2024 KAT OZUNA [facility] No family history on file Normal [facility] Reminderson 02-07-2024 Reminders - From: Jose Pryor To: [facility] - Reminders/Recalls; Sent: 02/07/2024 09:46:06 EDT Show up: 12/28/2028 09:45:00 EST Subject: Ambulatory Reminder Due Date/Time: 01/29/2029 09:45:00 EDT Reminder/Recall Repeat colonoscopy in 5 years(2028) for hx of colon polyps Normal [facility] Result Letter Officeon 02-06 Result Letter Office (Inserted Image. Un able to display) February 07, 2024 CHELSEA CURRY [address] [place] [id number] : 1945 Below is a summary of the results of your recent colonoscopy. Your results have been sent to your primary care provider along with recommendations on when the procedure should be repeated. COLONOSCOPY WITH POLYP REMOVAL OR BIOPSY Type of polyp adenomatous changes - not cancer but can become cancer if not removed. Additional colonoscopies will be necessary to monitor your condition and assure that new polyps have not developed. Based on your results we are recommending you repeat the procedure in 5 years You will be placed in our reminder system and will receive a reminder letter prior to your next due date. [facility] [phone] Normal [facility] Postoperative Documentson Postoperative Documents [id number] Normal [facility] IntraOperative Documentson 0 02-01-2024 IntraOperative Documents [id number] Normal [facility] Physician Referralon 024 Physician Referral [id number] Normal [facility] Progress Note-Physicianon Progress Note-Physician Patient: Jamey CURRY Age: 78 years Sex: Female : 1945 Associated Diagnoses: None Author: Jaron Faustin Jr, DO Preoperative Information Anesthesia Preop Info: Time patient last ate or drank 01/30/2024 00:00:00. Anesthesia history: Patient history: None. Family history+: None. Informed consent: Signed by patient. Re-evaluation prior to induction: Initial evaluation reviewed: No significant change. Review of Systems Eye: Negative except as documented in history of present illness. Ear/Nose/Mouth/Throat: Negative except as documented in history of present illness. Respiratory: Negative except as documented in history of present illness. Cardiovascular: Negative except as documented in history of present illness. Musculoskeletal: Negative except as documented in history of present illness. Neurologic: Negative except as documented in history of present illness. Health Status Allergies: Allergic Reactions (Selected) Severity Not Documented Codeine- Nausea. Demerol- Hyper. Iodinated radiocontrast dyes- Nausea. Ketek- Unknown. Nubain- Rash. Penicillins- Rash. Phenergan- Hives. Pyridium- Nausea. Sulfa drugs- Rash. Tobramycin- Nausea. Nonallergic Reactions (Selected) Severity Not Documented Ciprofloxacin- Unknown. Meperidine- Unknown. Moxifloxacin- Unknown. Potassium citrate- Unknown. Promethazine- Aof. Protamine- Unknown. Shellfish- Unknown. Telithromycin- Unknown. Problem list: All Problems UTI (urinary tract infection) / SNOMED CT 976154812 / Confirmed Urinary incontinence / SNOMED CT 1208454263 / Confirmed Urinary urgency / SNOMED CT 297326247 / Confirmed Urge incontinence / SNOMED CT 763951868 / Confirmed Other urethral stricture, female / SNOMED CT 309758336 / Confirmed Unintentional weight loss / SNOMED CT 1280122564 / Confirmed Pyelonephritis / SNOMED CT 98054691 / Confirmed Osteoarthritis / SNOMED CT 4193960003 / Confirmed Nocturia / SNOMED CT 542460204 / Confirmed Schatzki's ring / SNOMED CT 169350734 / Confirmed Kidney stones / SNOMED CT 482578164 / Confirmed Urinary frequency / SNOMED CT 099403503 / Confirmed Urinary incontinence without sensory awareness / SNOMED CT 6491162634 / Confirmed Fecal incontinence / SNOMED CT 663711152 / Confirmed Mixed stress and urge incontinence / SNOMED CT 99523133 / Confirmed Mixed incontinence / SNOMED CT 58488126 / Confirmed Hypothyroidism / SNOMED CT 44414230 / Confirmed Hypertension / SNOMED CT 8674936700 / Confirmed Hyperlipidemia / SNOMED CT 70185626 / Confirmed History of colon polyps / SNOMED CT 1777049129 / Confirmed H/O blood clots / SNOMED CT 632174563 / Confirmed Glucosuria / SNOMED CT 47113540 / Confirmed Acid reflux / SNOMED CT 279336265 / Confirmed Abdominal cramping / SNOMED CT 568387964 / Confirmed Dysphagia / SNOMED CT 71473011 / Confirmed Anticoagulated / SNOMED CT 133390483 / Confirmed Diabetes / SNOMED CT 030998431 / Confirmed Urinary hesitancy / SNOMED CT 789872476 / Confirmed Renal cyst / SNOMED CT 0523805404 / Confirmed Chronic diarrhea / SNOMED CT 777604518 / Confirmed Chronic cystitis / SNOMED CT 28814978 / Confirmed Mejia's esophagus / SNOMED CT 514979940 / Confirmed Histories Procedure history: Colonoscopy ([id number]) on 01/13/2017 at 71 Years. Cystoscopy ([id number]) on 04/27/2016 at 70 Years. Cystoscopic removal of ureteric stent ([id number]) on 04/20/2012 at 66 Years. Cystoscopic insertion of ureteric stent ([id number]) on 04/06/2012 at 66 Years. ESWL- Right ([id number]) on 04/01/2012 at 66 Years. Cysto/ BL RG ([id number]) on 09/29/2010 at 65 Years. ESWL- Right ([id number]) on 12/31/2009 at 64 Years. ESWL- Right ([id number]) on 12/16/2009 at 64 Years. Cystoscopic laser lithotripsy of ureteric calculus ([id number]) in the month of 07/2009 at 64 Years. Cystoscopic removal of ureteric stent ([id number]) on 07/30/2009 at 64 Years. Cystoscopic insertion of ureteric stent ([id number]) in the month of 06/2009 at 64 Years. Rotator cuff repair- right ([id number]) in the month of 02/2008 at 62 Years. Cystoscopic laser lithotripsy of ureteric calculus ([id number]) in the month of 11/2006 at 61 Years. Cystoscopic removal of ureteric stent ([id number]) in the month of 11/2006 at 61 Years. ESWL - Extracorporeal shockwave lithotripsy for renal calculus ([id number]) in the month of 01/2006 at 60 Years. ESWL - Extracorporeal shockwave lithotripsy for renal calculus ([id number]) in the month of 03/2005 at 59 Years. ESWL - Extracorporeal shockwave lithotripsy for renal calculus ([id number]) in the month of 08/2002 at 57 Years. Cystoscopic insertion of ureteric stent ([id number]) in the month of 08/2002 at 57 Years. ESWL ([id number]) in the month of 07/2002 at 57 Years. Cystoscopic insertion of ureteric stent ([id number]) in the month of 07/2002 at 57 Years. Laminectomy with spinal fusion ([id number]) in 1998 at 54 Years. Appendectomy ([id number]). Carpal tunn (more content not included)... [facility] Comment on above: Result Comment: Elec tronically Signed By: Jaron Faustin Jr, DO\.br\Date and Time Signed: 02/01/24 07:45 EDT Progress Note-Physician Patient: Jamey CURRY Age: 78 years Sex: Female : 1945 Associated Diagnoses: None Author: Jaron Faustin Jr, DO Postoperative Information Postoperative disposition: Postoperative disposition: To PACU. Optimetrix number: Optimetrix number [id number]. Anesthetic utilized: General. Health Status Allergies: Allergic Reactions (Selected) Severity Not Documented Codeine- Nausea. Demerol- Hyper. Iodinated radiocontrast dyes- Nausea. Ketek- Unknown. Nubain- Rash. Penicillins- Rash. Phenergan- Hives. Pyridium- Nausea. Sulfa drugs- Rash. Tobramycin- Nausea. Nonallergic Reactions (Selected) Severity Not Documented Ciprofloxacin- Unknown. Meperidine- Unknown. Moxifloxacin- Unknown. Potassium citrate- Unknown. Promethazine- Aof. Protamine- Unknown. Shellfish- Unknown. Telithromycin- Unknown. Physical Examination Vital Signs 01/30/2024 10:03 EDT Heart Rate Monitored 65 bpm Respiratory Rate Monitored 16 br/min Systolic Blood Pressure 131 mmHg Diastolic Blood Pressure 53 mmHg LOW Mean Arterial Pressure, Cuff 79 mmHg SpO2 98 % 01/30/2024 9:50 EDT Heart Rate Monitored 65 bpm Respiratory Rate Monitored 13 br/min Systolic Blood Pressure 125 mmHg Diastolic Blood Pressure 59 mmHg Mean Arterial Pressure, Cuff 81 mmHg SpO2 98 % 01/30/2024 9:45 EDT Heart Rate Monitored 96 bpm Respiratory Rate Monitored 20 br/min Systolic Blood Pressure 125 mmHg Diastolic Blood Pressure 60 mmHg Mean Arterial Pressure, Cuff 82 mmHg SpO2 99 % 01/30/2024 9:40 EDT Heart Rate Monitored 64 bpm Respiratory Rate Monitored 13 br/min Systolic Blood Pressure 115 mmHg Diastolic Blood Pressure 52 mmHg LOW Mean Arterial Pressure, Cuff 73 mmHg SpO2 97 % 01/30/2024 9:38 EDT Temperature Temporal Artery 36.3 DegC Heart Rate Monitored 65 bpm Respiratory Rate Monitored 18 br/min Systolic Blood Pressure 121 mmHg Diastolic Blood Pressure 53 mmHg LOW Mean Arterial Pressure, Cuff 76 mmHg SpO2 98 % Pain Assessment: Controlled. General: Awake, Alert, Appropriate. Respiratory: Adequate air exchange. Cardiovascular: Stable, Normal peripheral perfusion. Neurological: Normal sensory function, Normal motor function. Assessment Anesthetic outcome No anesthetic complications noted. Adequate pain relief. able to void without difficulty, able to ambulate with assist, tolerating PO intake, no N/V. Review / Management Condition: Stable. Plan Transfer/Discharge: Transfer/Discharge Discharge when meets criteria ( To home ). [facility] Comment on above: Result Comment: Elec tronically Signed By: Jaron Faustin Jr, DO\.khushi\Date and Time Signed: 02/01/24 07:45 EDT [place] 01-31-2024 Consent [id number] [facility] Discharge Instructionson Discharge Instructions [id number] Normal [facility] Main OR Intraoperative Recor don 01-31-2024 Main OR Intraoperative Record IntraOp Document Type FT Summary Primary Physician: Michael Mayorga MD Finalized Date/Time: 01/31/24 09:00:23 Pt. Name: CHELSEA CURRY Jamey ChanB./Sex: 1945 Female Med Rec #: [id number] Physician: Michael Mayorga MD Financial #: [id number] Pt. Type: O Room/Bed: / Admit/Disch: 01/30/24 07:46:31 - 01/30/24 23:59:59 Institution: Case Times FT Entry 1 Patient Times In Room 01/30/24 08:51:00 Out Room 01/30/24 09:36:00 Procedure Times Start 01/30/24 09:01:00 Stop 01/30/24 09:33:00 Anesthesia Times Start 01/30/24 08:51:00 Stop 01/30/24 09:36:00 Time at [place] 01/30/24 09:22:00 Last Modified By: Mily Lindo RN 01/30/24 09:36:53 General Comments: 0911 EGD Completed. /,RN 0916 Colonoscopy started. /,RN 01/31/24 Chart opened for charge review per Abi Huerta RN. [place] Case Attendance FT Entry 1 Entry 2 Entry 3 Case Attendee Deppen ESTHER, Irena Lindo RN, Curtis Thomas Role Performed [employer] - Primary Scrub - Primary Time In 01/30/24 08:51:00 01/30/24 08:51:00 01/30/24 08:51:00 Time Out 01/30/24 09:36:00 01/30/24 09:36:00 01/30/24 09:36:00 Procedure EGD AND COLONOSCOPY(.) EGD AND COLONOSCOPY(.) EGD AND COLONOSCOPY(.) Comments Dr. Faustin supervising case Last Modified By: Miyl Lindo RN, RN, Mily Lindo RN, Mily Méndez 01/30/24 09:36:54 F 01/30/24 09:36:54 F 01/30/24 09:36:54 Entry 4 Case Attendee Michael Mayorga MD Role Performed Surgeon - Primary Time In 01/30/24 08:51:00 Time Out 01/30/24 09:36:00 Procedure EGD AND COLONOSCOPY(.) Comments Last Modified By: Mily Lindo RN 01/30/24 09:36:54 Perioperative Protocols FT Pre-Care Text: Implements protective measures prior to operative or invasive procedure, confirms identity before the operative or invasive procedure, verifies operative procedure, surgical site, and laterality Entry 1 Procedure(s) EGD AND COLONOSCOPY(.) Patient Identity Birthday, ID Band Verified (select at Check, Patient least 2): Participation Consents / H and P Anesthesia Consent, Operative Site N/A Verified HandP, Surgery/Procedure Marking Verified Consent Surgical Site No Laterality Verified n/a Verified Procedure Verified Yes Correct Patient Yes Position Verified Availability Equipment, Medication Prep Dry n/a Verified (If Applicable) PreOp Antibiotic No Time Out Deppen Irena SANTANA, Given Participants Guicho HOLLAND, Cameron Paredes Micala E, Mukesh SILVER, Michael Canseco Time Out Complete 01/30/24 08:53:00 Outcomes Met? Yes Last Modified By: Mily Lindo RN 01/30/24 08:55:27 Post-Care Text: The patient is free from signs and symptoms of injury caused by extraneous objects Allergy Information FT Pre-Care Text: Verifies allergies Entry 1 Allergies Reviewed? Yes Allergies Reviewed Self/Patient With Outcomes Met? Yes Last Modified By: Mily Lindo RN 01/30/24 08:55:33 Post-Care Text: The patient received appropriate medication(s) safely administered during the perioperative period Surgical Procedures FT Entry 1 Procedure Description Procedure EGD AND COLONOSCOPY Modifiers . Surgeon Description EGD with duodenal biopsy, gastric biopsy, esophageal biopsy with hemoclip x1 placed to biopsy site. Colonoscopy with descending colon polypectomy, random colon biopsy, ascending colon polypectomy. Primary Procedure Yes Primary Surgeon Michael Mayorga MD Start 01/30/24 09:01:00 Stop 01/30/24 09:33:00 Anesthesia Type General Surgical Service Gastroenterology Wound Class 2 - Clean-Contaminated Last Modified By: Mily Lindo RN 01/30/24 09:33:20 General Case Data FT Pre-Care Text: Classifies surgical wound, implements aseptic technique, initiates traffic control Entry 1 Case Information OR ENDO 1 FT Case Level Level 2 Wound Class 2 - Clean-Contaminated Specialty Gastroenterology ASA Class 3 Preop Diagnosis Chronic diarrhea, Postop Same As Preop No history of colon polyps, Mejia's esophagus, dysphagia Postop Diagnosis EGD- Schatzki's ring, Outcomes Met? Yes duodenitis, gastropathy, hiatal hernia, esophagitis, gastric ulcer, gastritis, gastric polyp. Colonoscopy- descending colon polyp, ascending colon polyp, non bleeding right colon AVM, internal hemorrhoids Last Modified By: Mily Lindo RN 01/30/24 09:36:50 Post-Care Text: The patient is free from signs and symptoms of infection Skin Assessment (Pre Procedure) FT Pre-Care Text: Implements protective measures to prevent skin/ tissue injury due to thermal or mechanical sources Evaluates for signs and symptoms of physical injury to skin and tissue Entry 1 Skin Integrity Intact, Welcome, Warm, and Skin Abnormality No Dry Outcomes Met? Yes Last Modified By: Mily Lindo RN 01/30/24 08:56:51 Post-Care Text: The patient is free from signs an (more content not included)... [facility] Colonoscopy Procedure Report on 01-30-2024 Colonoscopy Procedure Report Patient: CHELSEA CURRY Age: 78 years Sex: Female : 1945 Associated Diagnoses: None Author: Michael Mayorga MD Pre-Procedure Procedure Date 12/22/2023 09:11:00 . Procedure Type: Colonoscopy with removal of tumor(s), polyp(s), or other lesion(s) by cold snare technique, biopsy. Procedure provider Performed by Michael Mayorga MD. Current history and physical Documented on chart. Past Medical History Family History Procedure History Colorectal neoplasm risk assessment Average risk. Informed Consent After discussing the rationale, risks and benefits, and alternatives to this procedure, the patient provided signed consent for the procedure. Pre-procedure diagnosis: Diagnostic: Diarrhea. Medications (Selected) Inpatient Medications Ordered Lactated Ringers IV Dana 1000 mL 1,000 mL: 1,000 mL, IV, 100 mL/hr, Routine, Start date 01/30/24 7:22:00 EDT, 10 hour(s), Total volume (mL): 1,000, 67 kg, 1.74, m2 Sodium Chloride 0.9% IV Dana 1000 mL 1,000 mL: 1,000 mL, IV, 20 mL/hr, Routine, Start date 01/30/24 6:39:00 EDT, 50 hour(s), Total volume (mL): 1,000, 67 kg, 1.74, m2 Prescriptions Prescribed Pantoprazole [address] Tab: 40 mg = 1 tab(s), Oral, Daily, X 90 day(s), # 90 tab(s), Refills(s) 2, Pharmacy: [facility], 162.5, cm, 01/17/24 14:37:00 EDT, Height/Length Dosing, 67, kg, 01/17/24 14:37:00 EDT, Weight Dosing Vesicare 5 mg Tab: 5 mg = 1 tab(s), Oral, Daily, # 90 tab(s), Refills(s) 3, Pharmacy: [facility], 165, cm, 12/12/22 13:46:00 EST, Height/Length Dosing, 70.4, kg, 12/12/22 13:46:00 EST, Weight Dosing Vesicare 5 mg Tab: 5 mg = 1 tab(s), Oral, Every other day, # 30 tab(s), Refills(s) 11, Pharmacy: [facility], 165, cm, 12/12/22 13:46:00 EST, Height/Length Dosing, 70.4, kg, 12/12/22 13:46:00 EST, Weight Dosing clobetasol propionate 0.05% top oint: See Instructions, 30 gm, Refill(s) 2, Apply to affected area every 12 hours as needed for pain/discomfort., [facility], 165, cm, 12/12/22 13:46:00 EST, Height/Length Dosing, 70.4, kg, 12/12/22 13:46:00 EST, Weight Dosing Documented Medications Documented PreserVision AREDS: See Instructions, Refill(s) 0, Prophylaxis Rybelsus 7 mg oral tablet: Refills(s) 0, Blood glucose Vitamin D3: 50 mcg, Oral, Daily, Refills(s) 0, Prophylaxis Xarelto 20 mg oral tablet: 20 mg = 1 tab(s), Oral, qPM, Refills(s) 0, Blood Thinner citalopram: 10 mg, Oral, Daily, Refills(s) 0, Depression glimepiride 4 mg Tab: 4 mg = 1 tab(s), Oral, Daily, Blood glucose hydrochlorothiazide 25 mg Tab: 25 mg = 1 tab(s), Oral, Daily, Refills(s) 0, High blood pressure levothyroxine: 88 mcg, Oral, Daily, Refills(s) 0, Thyroid mirtazapine: 15 mg, Oral, Once a day (at bedtime), Refills(s) 0, Depression pioglitazone 15 mg Tab: 15 mg = 1 tab(s), Oral, Daily, Refills(s) 0, Blood glucose simvastatin: See Instructions, 20 mg Oral Monday, Monday, Monday, Refills(s) 0, High cholesterol ASA Classification: Class III. . Monitoring: See anesthesia record. . Procedure The procedure was performed in the hospital. See anesthesia record for sedation given during procedure. The patient was positioned starting in the left lateral decubitus position. Endoscope type used was. The endoscope was lubricated then introduced through the anus. The scope was advanced to the terminal ileum. No difficulties encountered during the procedure. The bowel preparation quality was good and was adequate (see polyps greater than or equal to 6 millimeters). The patient tolerated the procedure well. 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 Post-Procedure Complications: none. Estimated blood loss: none. Specimens: sent to pathology. Devices/ implants: none left in place. 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 Recommendations: Repeat colonoscopy:: In 5 years. Follow-up:: Await biopsy results in 3-5 days, (more content not included)... [facility] Comment on above: Other Comment: Cora cooley Attachment - attachment storage system not supported [id number] Can be viewed in source systemMissing Attachment - attachment storage system not supported [id number] Can be viewed in source systemMissing Attachment - attachment storage system not supported [id number] Can be viewed in source systemMissing Attachment - attachment storage system not supported [id number] Can be viewed in source systemMissing Attachment - attachment storage system not supported [id number] Can be viewed in source systemMissing Attachment - attachment storage system not supported [id number] Can be viewed in source systemMissing Attachment - attachment storage system not supported [id number] Can be viewed in source systemMissing Attachment - attachment storage system not supported [id number] Can be viewed in source system Consent for Treatmenton 0 Consent for Treatment [id number] [facility] Discharge Instructionson Discharge Instructions CHELSEA CURRY :1945 Visit Date:01/30/2024 Inpatient Discharge Instructions Your Care Team Admitting Physician - Michael Mayorga MD Referring Physician - Michael Mayorga MD Reason for Your Visit CHRONIC DIARRHEA, HX OF COLON POLYPS, BARRETTS ESOPHAGUS, DSYPHAGIA Your Diagnosis Adenomatous polyp of ascending colon Adenomatous polyp of descending colon Erosive gastropathy Peptic ulcer disease Schatzki's ring of distal esophagus Tests Performed Pathology Tissue Exam -- Results Pending -- Please visit your patient portal for your results or contact your primary care physician. This Is Your Medications List cholecalciferol (Vitamin D3) citalopram clobetasol topical (clobetasol propionate 0.05% top oint) glimepiride (glimepiride 4 mg Tab) hydrochlorothiazide (hydrochlorothiazide 25 mg Tab) levothyroxine mirtazapine multivitamin with minerals (PreserVision AREDS) pantoprazole (Pantoprazole [address] Tab) pioglitazone (pioglitazone 15 mg Tab) rivaroxaban (Xarelto 20 mg oral tablet) semaglutide (Rybelsus 7 mg oral tablet) simvastatin solifenacin (Vesicare 5 mg Tab) solifenacin (Vesicare 5 mg Tab) Procedure History Colonoscopy (01/30/2024), Esophagogastroduodenoscop y (01/30/2024), Colonoscopy (01/13/2017), Cystoscopy (04/27/2016), Cystoscopic removal of ureteric stent (04/20/2012), Cystoscopic insertion of ureteric stent (04/06/2012), ESWL - Extracorporeal shockwave lithotripsy for renal calculus (04/01/2012), Cystoscopy and retrograde pyelography (09/29/2010), ESWL - Extracorporeal shockwave lithotripsy for renal calculus (12/31/2009), ESWL - Extracorporeal shockwave lithotripsy for renal calculus (12/16/2009), Cystoscopic laser lithotripsy of ureteric calculus (07/2009), Cystoscopic removal of ureteric stent (07/30/2009), Cystoscopic insertion of ureteric stent (06/2009), Rotator cuff repair (02/2008), Cystoscopic laser lithotripsy of ureteric calculus (11/2006), Cystoscopic removal of ureteric stent (11/2006), ESWL - Extracorporeal shockwave lithotripsy for renal calculus (01/2006), ESWL - Extracorporeal shockwave lithotripsy for renal calculus (03/2005), Cystoscopic insertion of ureteric stent (08/2002), ESWL - Extracorporeal shockwave lithotripsy for renal calculus (08/2002), Cystoscopic insertion of ureteric stent (07/2002), ESWL - Extracorporeal shockwave lithotripsy for renal calculus (07/2002), Laminectomy with spinal fusion (1998), Appendectomy, Carpal tunnel release, Cholecystectomy, Excision of bursa, Hysterectomy, Nasal sinus procedure, Operative procedure on hand, Repair of meniscus, T and A (tonsillectomy and adenoidectomy) postoperative education. What to do next Instructions From Your Doctor Event Name Event Result Pharmacy Information [facility] New Follow Up Appointments after Discharge Follow Up with Mukesh SILVER, SUKH Gimenez, MED When: Comments: Call for any problems. The office will reach out in about one week from procedure date. Where: Medications What How Much When Why Instructions Next Dose Unchanged cholecalciferol (Vitamin D3) 50 Microgram By Mouth Every day Unchanged citalopram 10 Milligram By Mouth Every day Unchanged clobetasol topical (clobetasol propionate 0.05% top oint) See instructions Apply to affected area every 12 hours as needed for pain/ discomfort. Unchanged glimepiride (glimepiride 4 mg Tab) 1 Tablets By Mouth Every day Unchanged hydrochlorothiazide (hydrochlorothiazide 25 mg Tab) 1 Tablets By Mouth Every day Unchanged levothyroxine 88 Microgram By Mouth Every day Unchanged mirtazapine 15 Milligram By Mouth Once a day (at bedtime) Unchanged multivitamin with minerals (PreserVision AREDS) See instructions Unchanged pantoprazole (Pantoprazole [address] Tab) 1 Tablets By Mouth Every day Mejia's esophagus Duration: 90 Days Unchanged pioglitazone (pioglitazone 15 mg Tab) 1 Tablets By Mouth Every day Unchanged rivaroxaban (Xarelto 20 mg oral tablet) 1 Tablets By Mouth Once a day (in the evening) Unchanged semaglutide (Rybelsus 7 mg oral tablet) Unchanged simvastatin See instructions 20 mg Oral Monday, Monday, Monday Unchanged solifenacin (Vesicare 5 mg Tab) 1 Tablets By Mouth Every day Unchanged solifenacin (Vesicare 5 mg Tab) 1 Tablets By Mouth Every other day Test Results No qualifying data available. Allergies Demerol (hyper) Ketek (Unknown) Nubain (rash) Phenergan (hives) Pyridium (Nausea) ciprofloxacin (Unknown) codeine (Nausea) iodinated radiocontrast dyes (Nausea) meperidine (Unknown) moxifloxacin (Unknown) penicillins (rash) potassium citrate (Unknown) promethazine (AOF) protamine (Unknown) shellfish (Unknown) sulfa drugs (Rash) telithromycin (Unknown) tobramycin (Nausea) Problems Ongoing - Any problem that you are currently receiving treatment for. Abdominal cramping Acid reflux Anticoagulated Mejia's esophagus (more content not included)... [facility] Comment on above: Result Comment: Elec tronically Signed By: Latrice Metcalf I\.br\Date and Time Signed: 01/30/24 09:45 EDT Irasema 01-30-2024 Esophagogastroduodenosco py Patient: CHELSEA CURRY Age: 78 years Sex: Female : 1945 Associated Diagnoses: None Author: Michael Mayorga MD Pre-Procedure Procedure Date 12/22/2023 09:18:00 . Procedure Type: Esophagogastroduodenoscop y with biopsy. Procedure provider Performed by Michael Mayorga MD. Current history and physical Documented on chart. Informed Consent After discussing the rationale, risks and benefits, and alternatives to this procedure, the patient provided signed consent for the procedure. Pre-procedure diagnosis: Dysphagia/ odynophagia. Medications (Selected) Inpatient Medications Ordered Lactated Ringers IV Dana 1000 mL 1,000 mL: 1,000 mL, IV, 100 mL/hr, Routine, Start date 01/30/24 7:22:00 EDT, 10 hour(s), Total volume (mL): 1,000, 67 kg, 1.74, m2 Sodium Chloride 0.9% IV Dana 1000 mL 1,000 mL: 1,000 mL, IV, 20 mL/hr, Routine, Start date 01/30/24 6:39:00 EDT, 50 hour(s), Total volume (mL): 1,000, 67 kg, 1.74, m2 Prescriptions Prescribed Pantoprazole [address] Tab: 40 mg = 1 tab(s), Oral, Daily, X 90 day(s), # 90 tab(s), Refills(s) 2, Pharmacy: [facility], 162.5, cm, 01/17/24 14:37:00 EDT, Height/Length Dosing, 67, kg, 01/17/24 14:37:00 EDT, Weight Dosing Vesicare 5 mg Tab: 5 mg = 1 tab(s), Oral, Daily, # 90 tab(s), Refills(s) 3, Pharmacy: [facility], 165, cm, 12/12/22 13:46:00 EST, Height/Length Dosing, 70.4, kg, 12/12/22 13:46:00 EST, Weight Dosing Vesicare 5 mg Tab: 5 mg = 1 tab(s), Oral, Every other day, # 30 tab(s), Refills(s) 11, Pharmacy: [facility], 165, cm, 12/12/22 13:46:00 EST, Height/Length Dosing, 70.4, kg, 12/12/22 13:46:00 EST, Weight Dosing clobetasol propionate 0.05% top oint: See Instructions, 30 gm, Refill(s) 2, Apply to affected area every 12 hours as needed for pain/discomfort., [facility], 165, cm, 12/12/22 13:46:00 EST, Height/Length Dosing, 70.4, kg, 12/12/22 13:46:00 EST, Weight Dosing Documented Medications Documented PreserVision AREDS: See Instructions, Refill(s) 0, Prophylaxis Rybelsus 7 mg oral tablet: Refills(s) 0, Blood glucose Vitamin D3: 50 mcg, Oral, Daily, Refills(s) 0, Prophylaxis Xarelto 20 mg oral tablet: 20 mg = 1 tab(s), Oral, qPM, Refills(s) 0, Blood Thinner citalopram: 10 mg, Oral, Daily, Refills(s) 0, Depression glimepiride 4 mg Tab: 4 mg = 1 tab(s), Oral, Daily, Blood glucose hydrochlorothiazide 25 mg Tab: 25 mg = 1 tab(s), Oral, Daily, Refills(s) 0, High blood pressure levothyroxine: 88 mcg, Oral, Daily, Refills(s) 0, Thyroid mirtazapine: 15 mg, Oral, Once a day (at bedtime), Refills(s) 0, Depression pioglitazone 15 mg Tab: 15 mg = 1 tab(s), Oral, Daily, Refills(s) 0, Blood glucose simvastatin: See Instructions, 20 mg Oral Monday, Monday, Monday, Refills(s) 0, High cholesterol ASA Classification: Class III. . Monitoring: See anesthesia record. . Procedure The procedure was performed in the hospital. See anesthesia record for sedation given during procedure. The patient was positioned starting in the left lateral decubitus position. Endoscope type used was, introduced orally, advanced to the 2nd portion of the duodenum. No difficulty was encountered during the procedure. Views were excellent. The patient tolerated the procedure well. Findings Z-line was irregular at 37 cm Nonobstructing Schatzki's ring at 37 cm; disrupted using biopsy forceps LA grade C esophagitis status post biopsies Hiatal hernia measuring 3 cm Patchy gastropathy with scattered erosions and stigmata of recent bleeding status post biopsies Heaped up lesion in the stomach body concerning for lipoma versus GIST Small ulcer in the prepyloric region with hematin clot status post biopsies Erythematous mucosa with few erosions status post biopsies Normal first and second duodenum segment status post biopsies Images Procedure images: Rec_hd_video__46_157.jpg Rec_hd_video__303.jpg Rec_hd_video__387.jpg Rec_hd_video__T 08_10_[id number].jpg Rec1_hd_video_2023__02T 08___274.jpg Rec1_hd_video_2023__02T 08__25_264.jpg Rec1_hd_video_2023__02T 08__35_248.jpg Rec1_hd_video_2023__02T 08__17_396.jpg Rec1_hd_video_2023__02T 08__43_443.jpg Rec1_hd_video_2023__02T 08__02_897.jpg Rec1_hd_video_2023__02T 08_14_[id number].jpg . Post-Procedure Complications: none. Estimated blood loss: none. Specimens: sent to pathology. Devices/ implants: none left in place. Notes: Increase pantoprazole to twice a day Repeat EGD aft (more content not included)... [facility] Comment on above: Other Comment: Cora cooley Attachment - attachment storage system not supported [id number] Can be viewed in source systemFormerly [facility] Attachment - attachment storage system not supported [id number] Can be viewed in source systemFormerly [facility] Attachment - attachment storage system not supported [id number] Can be viewed in [facility] Attachment - attachment storage system not supported [id number] Can be viewed in source [facility]Former[facility] Attachment - attachment storage system not supported [id number] [facility] Attachment - attachment storage system not supported [id number] Can be viewed in source systemFormerly [facility], [facility] Attachment - attachment storage system not supported [id number] Can be viewed in source systemFormerly [facility], [facility] Attachment - attachment storage system not supported [id number] [facility] be [facility] Attachment - attachment storage system not supported [id number] [facility] be [facility] Attachment - attachment storage system not supported [id number] Can be viewed in source systemFormerly [facility], [facility] Attachment - attachment storage system not supported [id number] Can be viewed in source system Main OR PACU I Recordon 04-0 Main OR PACU I Record PACU Phase I Docum ent Type FT Summary Primary Physician: Michael Mayorga MD Finalized Date/Time: 01/30/24 10:18:51 Pt. Name: CHELSEA CURRY Jamey Castillo/Sex: 1945 Female Med Rec #: [id number] Physician: Michael Mayorga MD Financial #: [id number] Pt. Type: O Room/Bed: / Admit/Disch: 01/30/24 07:46:31 - Institution: Case Times PACU I FT Pre-Care Text: Identifies barriers to communication and implements measures to provide psychological support Develops individualized plan of care, and ensures continuity of care Maintains patient's dignity and privacy, and maintains patient confidentiality Identifies and reports philosophical, cultural, and spiritual beliefs and values Identifies individual values and wishes concerning care Implements aseptic technique, and administers prescribed antibiotic therapy and immunizing agents as ordered Evaluates postoperative tissue perfusion Implements thermoregulation measures, and monitors body temperature Evaluates postoperative respiratory status Evaluates postoperative cardiac status Evaluates postoperative neurological status Assesses pain control, collaborated in initiating patient-controlled analgesia and implements alternative methods of pain control Verifies allergies, administers prescribed medications and solutions, evaluates response to medications Entry 1 In PACU I 01/30/24 09:38:00 Discharge from PACU 01/30/24 10:08:00 I Outcomes Met? Yes Last Modified By: Latrice Metcalf I 01/30/24 10:18:38 Post-Care Text: The patient demonstrates knowledge of the expected response to the operative or invasive procedure The patient's care is consistent with the individualized perioperative plan of care The patient's right to privacy is maintained The patient's value system, lifestyle, ethnicity, and culture are considered, respected, and incorporated into the perioperative plan of care The patient participates in decisions affecting his or her perioperative plan of care The patient is free from signs and symptoms of infection The patient has wound/tissue perfusion consistent with or improved from baseline levels established preoperatively The patient is at or returning to normothermia at the conclusion of the immediate postoperative period The patient's respiratory function is consistent with or improved from baseline levels established preoperatively The patient's cardiovascular status is consistent with or improved from baseline levels established preoperatively The patient's cardiovascular status is consistent with or improved from baseline levels established preoperatively The patient demonstrates and/or reports adequate pain control throughout the perioperative period The patient received appropriate medication(s), safely administered during the perioperative period Acuity Level PACU I FT Entry 1 Start Time 01/30/24 09:38:00 Stop Time 01/30/24 10:08:00 Acuity Level Acuity Level I Last Modified By: Latrice Metcalf I 01/30/24 10:18:48 Finalized By: Latrice Metcalf I Document Signatures Signed By: Latrice Metcalf I 01/30/24 10:[address] [facility] Main OR Preoperative Recordo n 01-30-2024 Main OR Preoperative Record Holding Area Document Type FT Summary Primary Physician: Michael Mayorga MD Finalized Date/Time: 01/30/24 07:58:42 Pt. Name: CHELSEA CURRY Jamey Castillo/Sex: 1945 Female Med Rec #: [id number] Physician: Michael Mayorga MD Financial #: [id number] Pt. Type: O Room/Bed: / Admit/Disch: 01/30/24 07:46:31 - Institution: Case Times Holding FT Pre-Care Text: Verifies consent for planned procedure, identifies individual values and wishes concerning care, includes family members in perioperative teaching Secures patient's records' belongings, and valuables, maintains patient's dignity and privacy, and maintains patient confidentiality Entry 1 In Holding 01/30/24 07:54:00 Outcomes Met? Yes Last Modified By: Ashanti Tijerina RN 01/30/24 07:54:07 Post-Care Text: The patient participates in decisions affecting his or her perioperative plan of care The patient's right to privacy is maintained Surgery Checklist FT Entry 1 Patient Birthday, ID Band Procedure History and Physical, Identification: Check, Patient Verification: Surgical Consent, With Participation Patient NPO after Midnight: No Date/Time: 01/30/24 03:00:00 Personal Items: Cataract Lens Implant, Personal Items bilateral cataract lens Dentures, Glasses, Comment: implants, dentures - Jewelry partial upper; glasses; ring x 1 Limitations: up ad ashlee Complaints of Pain: No Pain Comment: 0/10 Operative Site n/a Marking: Availability Equipment Verified: Does Patient Smoke No Patient states Yes Comment - Adult friend - gale postop adult Supervision supervision available Case Cancelled in No Holding Area see comments below for reason Last Modified By: Ashanti Tijerina RN 01/30/24 07:58:37 General Comments: 0300 finished prep - stool clear yellow. skyler painting Finalized By: Ashanti Tijerina RN Document Signatures Signed By: Ashanti Tijerina RN 01/30/24 07:58 [facility] Monitor Recordon 01-30-2024 Monitor Record [id number] Normal [facility] Monitor Record [id number]#[id number] Normal [facility] Patient Education - Texton 0 01-30-2024 Patient Education - Text Colonoscopy Care After Surgery Please read the instructions outlined below and refer to this sheet in the next few weeks. These discharge instructions provide you with general information on caring for yourself after you leave the hospital. Your doctor may also give you specific instructions. While your treatment has been planned according to the most current medical practices available, unavoidable complications occasionally occur. If you have any problems or questions after discharge, please call your doctor. ACTIVITY You may resume your regular activity, but move at a slower pace for the next 24 hours. Take frequent rest periods for the next 24 hours. Walking will help get rid of the air and reduce the bloated feeling in your abdomen (belly). No driving for 24 hours (because of the anesthesia (medicine) used during the test). You may shower. Do not sign any important legal documents or operate any machinery for 24 hours (because of the anesthesia used during the test). NUTRITION Drink plenty of fluids. You may resume your normal diet as instructed by your doctor. Begin with a light meal and progress to your normal diet. Heavy or fried foods are harder to digest and may make you feel nauseated (sick to your stomach). Avoid alcoholic beverages for 24 hours or as instructed. MEDICATIONS You may resume your normal medications unless your doctor tells you otherwise. WHAT YOU CAN EXPECT TODAY Some feelings of bloating in the abdomen. Passage of more gas than usual. Spotting of blood in your stool or on the toilet paper. FOLLOW-UP Your doctor will discuss the results of your test with you. SEEK IMMEDIATE MEDICAL ATTENTION IF: There is more than a spotting of blood in your stool. There is abdominal distention (your abdomen is swollen). There is vomiting. You have a temperature over 101.5 F. There is abdominal pain or discomfort that is severe or gets worse throughout the day. Endoscopy Care After Procedure Please read the instructions outlined below and refer to this sheet in the next few weeks. These discharge instructions provide you with general information on caring for yourself after you leave the hospital. Your doctor may also give you specific instructions. While your treatment has been planned according to the most current medical practices available, unavoidable complications occasionally occur. If you have any problems or questions after discharge, please call your doctor. ACTIVITY ? You may resume your regular activity but move at a slower pace for the next 24 hours. ? Take frequent rest periods for the next 24 hours. ? Walking will help expel (get rid of) the air and reduce the bloated feeling in your abdomen. ? No driving for 24 hours (because of the anesthesia (medicine) used during the test). ? You may shower. ? Do not sign any important legal documents or operate any machinery for 24 hours (because of the anesthesia used during the test). NUTRITION ? Drink plenty of fluids. ? You may resume your normal diet. ? Begin with a light meal and progress to your normal diet. ? Avoid alcoholic beverages for 24 hours or as instructed by your caregiver. MEDICATIONS ? You may resume your normal medications unless your caregiver tells you otherwise. WHAT YOU CAN EXPECT TODAY ? You may experience abdominal discomfort such as a feeling of fullness or ?gas? pains. FOLLOW-UP ? Your doctor will discuss the results of your test with you. seek immediate medical attention if any of the following occur: ? Excessive nausea (feeling sick to your stomach) and/or vomiting. ? Severe abdominal pain and distention (swelling). ? Trouble swallowing. ? Temperature over 100 F (37.8? C). ? Rectal bleeding or vomiting of blood. Document Released: 05/30/2005 Document Re-Released: 04/09/2007 ExitCare? Patient Information ?2009 [facility]. Gastroenterology Hemorrhoids Hemorrhoids are swollen veins that may develop: ? In the butt (rectum). These are called internal hemorrhoids. ? Around the opening of the butt (anus). These are called external hemorrhoids. Hemorrhoids can cause pain, itching, or bleeding. Most of the time, they do not cause serious problems. They usually get better with diet changes, lifestyle changes, and other home treatments. What are the causes? This condition may be caused by: ? Having trouble pooping (constipation). ? Pushing hard (straining) to poop. ? Watery poop (diarrhea). ? . ? Being very overweight (obese). ? Sitting for long periods of time. ? Heavy lifting or other activity that causes you to strain. ? Anal sex. ? Riding a bike for a long period of time. What are the signs or symptoms? Symptoms of this condition include: ? Pain. ? Itching or soreness in the butt. ? Bleeding from the butt. ? Leaking poop. ? Swelling in the area. ? One or more lumps around the opening of your butt. How is this (more content not included)... Normal [facility] Consent for Procedure/Surger yon 01-18-2024 Consent for Procedure/Surgery [id number]#[id number] [facility] Formson 01-18-2024 Forms [id number] [facility] Gastroenterology Office/Clin ic Noteon 01-18-2024 Gastroenterology Office/Clinic Note Chief Complaint Diarrhea HPI Staff Patient is a 78 year old female who was referred by Dr Hedrick for diarrhea that has worsened. History of Present Illness Patient is a 78-year-old female who presents for referral from her PCP?Dr. Hedrick for further evaluation of diarrhea. PMH of Hypothyroidism, HTN, HLD, DM, type 2- managed by patient's PCP. Review of record indicates patient had previous labs 02/2023 that revealed normal H&H, labs from 03/22/2023 revealed elevated BUN of 24, normal creatinine, normal LFTs, slightly elevated total bilirubin of 1.3. Review of outside records from [facility] indicates patient had previous x-ray of abdomen 01/11/2024 that revealed stable bilateral nephrolithiasis. Review of outside record indicates patient had previous colonoscopy with Dr. Copeland at [facility] 01/13/2017 that revealed 5 mm sessile sigmoid polyp removed, sigmoid colon biopsy revealed hyperplastic polyp, ascending colon biopsy revealed no significant pathologic changes, no evidence of active colitis, rectal biopsy revealed no significant pathologic changes, no evidence of active colitis. Review of record indicates patient had previous anorectal manometry 09/2017 that revealed weak anal sphincter pressure at rest and during squeezing. Review of outside record from PCP: Dr. Hedrick 01/12/24 indicated patient is having diarrhea daily and is unable to leave her home if she eats related to diarrhea with 10 BMs daily. Some mucus in stool at times per note. Note also indicated patient with weight loss of 17 pounds in the last 6 months. Record indicated patient had previous CT A/P- no record of CT to review during today's encounter. Patient had previous EGD 02/05/[address] Salazar that revealed distal esophageal schatzki's ring- dilated, nodular mucosa in Z-line, normal gastric mucosa, small HH, normal duodenal mucosa, biopsy of nodular mucosa at z-line revealed intestinal metaplasia, consistent with mejia's esophagus, moderate chronic active inflammation, negative for dysplasia. Family history of colon cancer: Denies. Family history of colon polyps: Denies. Personal history of colon cancer: Denies. Personal history of colon polyps: yes, see above. Takes Xarelto. Patient reports she takes Xarelto for hx. PE- follows with pulmonology regarding. During today's visit, patient reports she has been experiencing diarrhea for years that has worsened in the last 1.5 years. Is having watery diarrhea daily. Is having 5-8 BMs daily. Has associated fecal incontinence and urgency with diarrhea. Has occasional mashed potato consistency loose stool. Explains 1 hour after eating she will have diarrhea. Has mucus in stool at times. Is having rare occasions of lower abdominal cramping prior to having a BM- improves after. Hx. cholecystectomy 27 years ago. Previously tried Questran in past 6-7 years ago that she reports did not help her diarrhea. Has difficulty swallowing with solids occurring 3 times a week over the last 3 years. Has acid reflux 1-2 times a week. Takes tums PRN that helps her acid reflux. Denies black/bloody stools, nausea/vomiting, fevers/chills, and denies having any other GI complaints. Review of Systems PHQ Score Initial Depression Screen Score: 0 SCORE ROS - Provider Constitutional: no fever, no chills. Skin: no Jaundice. ENMT: Yes dysphagia. Respiratory: no shortness of breath. Cardiovascular: no chest pain. Gastrointestinal: no nausea, no vomiting, yes diarrhea, no GI bleeding. Physical Exam Vitals & Measurements T: 36.3 ?C(Temporal Artery) HR: 79(Peripheral) BP: 138/78 HT: 64 in HT: 162.5 cm WT: 67 kg WT: 147.4 lb BMI: 25.37 General: Well developed, well nourished, in no acute distress Head: Normocephalic/atraumatic Lungs: Normal respiratory effort and clear to auscultation Cardio: Regular rate and rhythm, normal S1 and S2, no murmur, no rub Abdomen: Soft, non-distended, non-tender. Normoactive bowel sounds present in all 4 abdominal quadrants, bilaterally. Mental Status: Alert and oriented x3. Normal mood and affect Assessment/Plan 1. Chronic diarrhea (K52.9: Noninfective gastroenteritis and colitis, unspecified) Watery diarrhea for years, worse in the last 1.5 years. Is having 5-8 BMs daily. Occasional loose stool consistency of mashed potato at times. Hx. cholecystectomy 27 years ago. Previously tried Questran in past that she reports did not help her diarrhea. Previous colonoscopy with Dr. Copeland at [facility] 01/13/2017 revealed 5 mm sessile sigmoid polyp removed, sigmoid colon biopsy revealed hyperplastic polyp, ascending colon biopsy revealed no significant pathologic changes, no evidence of active colitis, rectal biopsy revealed no significant pathologic changes, no evidence of active colitis. Denies knowledge of FH crohn's or ulcerative colitis. Ordered stool testing to evaluate for infectious process. Ordered Colonoscopy to evaluate for colitis, IBD, colon polyps/cancer. Previous anorectal ma (more content not included)... Normal [facility] Comment on above: Result Comment: Elec tronically Signed By: Dulce Holguin CNP\.br\Date and Time Signed: 01/18/24 10:45 EDT Ambulatory Visit Summaryon 0 01-17-2024 Ambulatory Visit Summary CHELSEA CURRY :1945 Visit Date:01/17/2024 Ambulatory Visit Instructions Your Diagnosis Chronic diarrhea Fecal incontinence Abdominal cramping Unintentional weight loss Mejia's esophagus Dysphagia Schatzki's ring Acid reflux History of colon polyps Your Care Team Attending Physician - Dulce Holguin CNP Primary Care Physician - JARED HEDRICK MD This Is Your Medications List pantoprazole (Pantoprazole [address] Tab) Contact prescribing physician if questions or concerns cholecalciferol (Vitamin D3) citalopram clobetasol topical (clobetasol propionate 0.05% top oint) glimepiride (glimepiride 4 mg Tab) hydrochlorothiazide (hydrochlorothiazide 25 mg Tab) levothyroxine mirtazapine multivitamin with minerals (PreserVision AREDS) nitrofurantoin (Macrobid 100 mg Cap) pioglitazone (pioglitazone 15 mg Tab) rivaroxaban (Xarelto 20 mg oral tablet) semaglutide (Rybelsus 7 mg oral tablet) simvastatin solifenacin (Vesicare 5 mg Tab) solifenacin (Vesicare 5 mg Tab) Procedures Performed Colonoscopy (01/13/2017), Cystoscopy (04/27/2016), Cystoscopic removal of ureteric stent (04/20/2012), Cystoscopic insertion of ureteric stent (04/06/2012), ESWL - Extracorporeal shockwave lithotripsy for renal calculus (04/01/2012), Cystoscopy and retrograde pyelography (09/29/2010), ESWL - Extracorporeal shockwave lithotripsy for renal calculus (12/31/2009), ESWL - Extracorporeal shockwave lithotripsy for renal calculus (12/16/2009), Cystoscopic laser lithotripsy of ureteric calculus (07/2009), Cystoscopic removal of ureteric stent (07/30/2009), Cystoscopic insertion of ureteric stent (06/2009), Rotator cuff repair (02/2008), Cystoscopic laser lithotripsy of ureteric calculus (11/2006), Cystoscopic removal of ureteric stent (11/2006), ESWL - Extracorporeal shockwave lithotripsy for renal calculus (01/2006), ESWL - Extracorporeal shockwave lithotripsy for renal calculus (03/2005), Cystoscopic insertion of ureteric stent (08/2002), ESWL - Extracorporeal shockwave lithotripsy for renal calculus (08/2002), Cystoscopic insertion of ureteric stent (07/2002), ESWL - Extracorporeal shockwave lithotripsy for renal calculus (07/2002), Laminectomy with spinal fusion (1998), Appendectomy, Carpal tunnel release, Cholecystectomy, Excision of bursa, Hysterectomy, Nasal sinus procedure, Operative procedure on hand, Repair of meniscus, T and A (tonsillectomy and adenoidectomy) postoperative education. Discharge Vitals Temperature (Temporal Artery) 36.3 ?C Heart Rate (Peripheral) 79 Blood Pressure 138/78 Height 64 in Height 162.5 cm Weight 147.4 lb Weight 67 kg BMI 25.37 What to do next You Need to Schedule the Following Appointments Follow Up with Dulce Holguin CNP When: Within 1 to 2 weeks Comments: Following colonoscopy. Where: You Need to Complete the Following Clostridium Difficile PCR, Stool, Routine collect, 01/17/24, Order for future visit, Nurse collect, Chronic diarrhea Invalid Interpretation Code Fecal incontinen ce, Print Label By Order Location\. br\ Fecal WBC Lactoferri n, Stool, Routine collect, 01/17/24, Order for future visit, Nurse collect, Chronic diarrhea [facility] Consultation Noteon 01-17-20 Consultation Note [id number] Normal [facility] Patient Educationon 01-17-20 Patient Education Gastroenterology Chronic Diarrhea Chronic diarrhea is a condition in which a person passes frequent loose and watery stools for 4 weeks or longer. Non-chronic diarrhea usually lasts for only 2?3 days. Diarrhea can cause a person to feel weak and dehydrated. Dehydration can make the person tired and thirsty. It can also cause a dry mouth, decreased urination, and dark yellow urine. Diarrhea is a sign of an underlying problem, such as: ? Infection. ? Side effects of medicines. ? Problems digesting something in your diet, such as milk products if you have lactose intolerance. ? Conditions such as celiac disease, irritable bowel syndrome (IBS), or inflammatory bowel disease (IBD). If you have chronic diarrhea, make sure you treat it as told by your health care provider. Follow these instructions at home: Medicines ? Take [id number] and prescription medicines only as told by your health care provider. ? If you were prescribed an antibiotic medicine, take it as told by your health care provider. Do not stop taking the antibiotic even if you start to feel better. Eating and drinking ? Follow instructions from your health care provider about what to eat and drink. You may have to: ? Avoid foods that trigger diarrhea for you. ? Take an oral rehydration solution (ORS). This is a drink that keeps you hydrated. It can be found at pharmacies and retail stores. ? Drink clear fluids, such as water, diluted fruit juice, and low-calorie sports drinks. You can also get fluids by sucking on ice chips. ? Drink enough fluid to keep your urine pale yellow. This will help you avoid dehydration. ? Eat small amounts of bland foods that are easy to digest as you are able. These foods include bananas, applesauce, rice, lean meats, toast, and crackers. ? Avoid spicy or fatty foods. ? Avoid foods and beverages that contain a lot of sugar or caffeine. ? Do not drink alcohol if: ? Your health care provider tells you not to drink. ? You are , may be , or are planning to become . ? If you drink alcohol: ? Limit how much you use to: ? 0?1 drink a day for women. ? 0?2 drinks a day for men. ? Be aware of how much alcohol is in your drink. In the [place] one drink equals one 12 oz bottle of beer (355 mL), one 5 oz glass of wine (148 mL), or one 1? oz glass of hard liquor (44 mL). General instructions ? Wash your hands often and after each diarrhea episode. Use soap and water. If soap and water are not available, use hand pyridine operator. ? Make sure that all people in your household wash their hands well and often. ? Rest as told by your health care provider. ? Watch your condition for any changes. ? Take a warm bath to relieve any burning or pain from frequent diarrhea episodes. ? Keep all follow-up visits as told by your health care provider. This is important. Contact a health care provider if: ? You have a fever. ? Your diarrhea gets worse or does not get better. ? You have new symptoms. ? You cannot drink fluid without vomiting. ? You feel light-headed or dizzy. ? You have a headache. ? You have muscle cramps. ? You have severe pain in the rectum. Get help right away if: ? You have vomiting that does not go away. ? You have chest pain. ? You feel very weak or you faint. ? You have bloody or black stools, or stools that look like tar. ? You have severe pain, cramping, or bloating in your abdomen, or pain that stays in one place. ? You have trouble breathing or you are breathing very quickly. ? Your heart is beating very quickly. ? Your skin feels cold and clammy. ? You feel confused. ? You have a severe headache. ? You have signs or symptoms of dehydration, such as: ? Dark urine, very little urine, or no urine. ? Cracked lips. ? Dry mouth. ? Sunken eyes. ? Sleepiness. ? Weakness. These symptoms may represent a serious problem that is an emergency. Do not wait to see if the symptoms will go away. Get medical help right away. Call your local emergency services (911 in the [place] Do not drive yourself to the hospital. Summary ? Chronic diarrhea is a condition in which a person passes frequent loose and watery stools for 4 weeks or longer. ? Diarrhea is a sign of an underlying problem. ? Make sure you treat your diarrhea as told by your health care provider. ? Drink enough fluid to keep your urine pale yellow. This will help you avoid dehydration. ? Wash your hands often and after each diarrhea episode. If soap and water are not available, use hand pyridine operator. This information is not intended to replace advice given to you by your health care provider. Make sure you discuss any questions you have with your health care provider. Document Revised: 01/06/2023 Document Reviewed: 04/13/2020 [employer] Patient Education ? 2022 [employer]. Normal [facility] 01-17-2024 [facility] [id number]#1.00TIFF Normal [facility] Reportson 01-15-2024 Lab Reports [id number]#1.00TIFF Normal [facility] Lab Reports [id number]#1.00TIFF Normal [facility] Lab Reports [id number]#1.00TIFF Normal [facility] Report[facility] 01-12-2024 Lab Reports [id number]#1.00TIFF Normal [facility] 01-12-2024 [facility] [id number]#1.00TIFF Normal [facility] Physician Referralon 024 Physician Referral [id number]#1.00TIFF Normal [facility] US CAROTID ARTERY DUPLE X BILATERALon 08-21-2023 [facility] US CAROTID ARTERY DUPLEX BILATERAL EXAM: [facility] US CAROTID ARTERY DUPLEX BILATERAL DATE:08/21/2023 12:57 PM CLINICAL HISTORY: screening COMPARISON: 07/21/2022 TECHNIQUE: Grayscale, color and waveform Doppler analysis of the cervical carotid and vertebral arteries was performed. Optimization of duplex velocity criteria for diagnosis of internal carotid artery (ICA) stenosis: A report of the Intersocietal Accreditation Commission (IAC) Vascular Testing Division Carotid Diagnostic Criteria Committee. Vascular Medicine 2020; https://journals.sagepub. com/doi/full/10.1177/1358 [id number] FINDINGS: Moderate atherosclerotic plaquing is again noted predominantly of the carotid bulbs. There is antegrade blood flow in the right and left vertebral arteries in the neck. On Doppler images, the peak systolic and end diastolic velocity measurements in centimeters per second are as follows: Right mid common carotid artery is 40.2/9.3, right distal common carotid artery is 47.9/11.3, right proximal internal carotid artery is 49.5/9.7, right mid internal carotid artery is 51.2/14.5, right distal internal carotid artery is 129/28.1, right external carotid artery maximum systolic velocity is 46.6, The peak systolic internal carotid to common carotid artery ratio on the right is 2.7, which indicates 50-69% narrowing by velocity ratio criteria, but less than 50% by maximum velocity criteria. Left mid common carotid artery is 45.7/10.7, left distal common carotid artery is 44.7/10.4, left proximal internal carotid artery is 52.2/18.6, left mid internal carotid artery is 72.9/20.7, left distal internal carotid artery is 118/31.5, left external carotid artery maximum systolic velocity is 69.4. The peak systolic internal carotid to common carotid artery ratio on the left is 2.6, which indicates less than 50% narrowing by velocity ratio criteria, but less than 50% narrowing by maximum velocity criteria. IMPRESSION: LESS THAN 50% CAROTID STENOSIS PREDICTED BY MAXIMUM VELOCITY CRITERIA Stenosis PSV EDV ICA/CCA Ratio <50% <180 cm/s <40 <2 50-69% 180-230 cm/s 40-100 2-4 > 70%, but less than near occlusion >230 cm/s >100 >4 ELECTRONICALLY SIGNED BY: Reji Looney MD Normal Not Available CT SHOULDER LEFT W/O CONTRAS Ton 02-28-2023 CT SHOULDER LEFT W/O CONTRAST HISTORY: Left shoulder pain. History of fall with decreased range of motion. History of rotator cuff repair. TECHNIQUE: Routine CT of the left shoulder without contrast, including dedicated 3-D reconstruction. Contrast: None. All CT scans at this facility use dose modulation, iterative reconstruction, and/or weight based dosing when appropriate to reduce radiation dose to as low as reasonably achievable. COMPARISON: None RESULT: No evidence for acute fracture. No glenohumeral or acromioclavicular dislocation. Changes from prior rotator cuff repair. Rotator cuff tendons are not well assessed on this study. Mild to moderate volume loss of supraspinatus. Mild degenerative changes of the glenohumeral joint with small osteophytes. Moderate degenerative changes acromioclavicular joint. Narrowing of the acromiohumeral interval, nonspecific. Visualized soft tissues unremarkable. Visualized lung grossly clear. IMPRESSION: No acute osseous findings. Changes from prior rotator cuff repair. Osteoarthritis as discussed. Report reported and signed by Evert Fisher on 02/28/2023 1643 Normal [facility] Screening Mammogram, Bilater melisa 02-03-2023 Screening Mammogram, Bilateral CLINICAL HISTORY: Screening Mammogram. COMPARISON: Priors from 2021, 2019, 2018, 2017 RESULT: Digital mammography and 3D tomosynthesis of bilateral breasts was performed. Density: There are scattered areas of fibroglandular density. There is no suspicious mass, asymmetry, architectural distortion, or calcification. Stable asymmetries and benign appearing calcifications. IMPRESSION: BI-RADS 2: BENIGN FINDINGS. Follow-up: 12 months. Board Certified Radiologists. Accredited by the ACR and FDA. MAMMOGRAPHY IS VERY IMPORTANT TO YOUR HEALTH. THE [place] CANCER SOCIETY GUIDELINES RECOMMEND THAT WOMEN 40 YEARS OF AGE AND OLDER SHOULD HAVE A MAMMOGRAM EVERY YEAR. A REMINDER LETTER WILL BE SENT AT THE APPROPRIATE TIME. THIS FACILITY UTILIZES A REMINDER SYSTEM TO ENSURE ALL PATIENTS RECEIVE REMINDER NOTIFICATIONS AT THE APPROPRIATE TIME BASED ON THE RECOMMENDATIONS OF THIS EXAM. THIS INCLUDES REMINDERS FOR ROUTINE SCREENING MAMMOGRAMS, DIAGNOSTIC MAMMOGRAMS IN WHICH THE PATIENT IS ASKED TO RETURN FOR ADDITIONAL VIEWS, OR OTHER BREAST IMAGING INTERVENTIONS WHEN APPROPRIATE. THE PATIENT WILL BE PLACED IN THE APPROPRIATE REMINDER SYSTEM INCLUDING A REMINDER AT THE APPROPRIATE TIME FOR ANY PENDING ADDITIONAL VIEWS. Report reported and signed by Evert Fisher on 02/03/2023 1201 Normal [facility] Mangle Operator Garments US Spleenon 02-03-2023 US Spleen CLINICAL HISTORY: Sp lenic artery aneurysm. COMPARISON: CT abdomen and pelvis 05/07/2021 TECHNIQUE: Ultrasound evaluation was performed of the spleen. FINDINGS: Normal echogenicity and size of the spleen. The spleen measures 10.2 x 8.8 x 4 cm. Splenic artery aneurysms seen on prior CTA are not well visualized by ultrasound. No free fluid. Normal appearance of the left kidney. IMPRESSION: Normal appearance of the spleen. Clinic artery aneurysms seen on prior CTA are not well visualized by ultrasound. Report reported and signed by Jared Morrissey on 02/03/2023 1525 Normal [facility] Specialist XR KUB 1 VIEWon 12-13-2022 XR KUB 1 VIEW EXAMINATION: XR KUB 1 VIEW HISTORY: Kidney stone COMPARISON: 08/31/2021 FINDINGS: KIDNEY/URETER - RIGHT: Punctate nephrolithiasis KIDNEY/URETER - LEFT: Punctate nephrolithiasis PELVIS: No visible ureteral calcifications. Any visible calcifications favor phleboliths. BOWEL: No abnormal dilation or deviation. BONES: No acute abnormality. Degenerative changes with lumbar fusion OTHER: Likely splenic artery calcifications. No abnormal gaseous collections. IMPRESSION: Stable bilateral nephrolithiasis Electronically authenticated by: ALFONSO AVILA Date: 2022-12-13 07:23 Normal [facility] US Carotid, Bilateralon 07-01 US Carotid, Bilateral CLINICAL HISTORY: History of carotid stenosis. High cholesterol. COMPARISON: 11/26/2020. TECHNIQUE: Longitudinal, transverse and color flow doppler ultrasound imaging of the carotid and vertebral arteries of the neck were obtained. FINDINGS: The ultrasound scans of the carotid and vertebral arteries demonstrate the following: RIGHT CAROTID: There is mild to moderate echoic plaques involving the right carotid arteries and at the right carotid bifurcation. On doppler images, the peak systolic velocity measurements in centimeters per second are as follows: CCA 54 cm/sec; carotid bulb 43.5 cm/sec; proximal ICA 55 cm/sec; mid ICA 159 cm/sec; distal ICA 167 cm/sec; right ECA 70 cm/sec; The peak systolic ICA/CCA ratio is 3.1. This correlates to a predicted stenosis of less than 50%. LEFT CAROTID: There is mild to moderate echoic plaques involving the left carotid arteries and at the left carotid bifurcation. On doppler images, the peak systolic velocity measurements in centimeters per second are as follows: CCA 55 cm/sec; carotid bulb 61 cm/sec; proximal ICA 86 cm/sec; mid ICA 82 cm/sec; distal ICA 101 cm/sec; left ECA 76 cm/sec; The peak systolic ICA/CCA ratio is 1.9. This correlates to a predicted stenosis of less than 50%. VERTEBRAL ARTERIES: There is antegrade blood flow in the vertebral arteries bilaterally. Peak systolic velocity of right vertebral artery measures 32 cm/sec. Peak systolic velocity of left vertebral artery measures 34 cm/sec. IMPRESSION: RIGHT CAROTID: STENOSIS OF LESS THAN 50% IS PREDICTED IN THE RIGHT ICA. LEFT CAROTID: STENOSIS OF LESS THAN 50% IS PREDICTED IN THE LEFT ICA. THERE IS ANTEGRADE BLOOD FLOW IN BOTH VERTEBRAL ARTERIES. Validated velocity measurements with angiographic measurements, and velocity criteria are extrapolated from diameter data as defined by the Society of Radiologist in Ultrasound Consensus Conference Radiology 2003; 229; 330-346. The degree of stenosis recorded on this exam uses the same method of stratification used in NASCET trials. This complies ACR practice guidelines and the Society of Radiology in Ultrasound Consensus statement and provides adequate information for clinical decision making. Society of Radiologists in Ultrasound (SRU) Consensus statement was used to estimate internal carotid artery stenosis. See table below. Degree of Stenosis, % ICA PSC, cm/sec Plaque Estimate, % ICA/CCA PSV Ratio ICA EDV, cm/sec Normal <180 None <2.0 <40 <50 <180 <50 <2.0 <40 50-69% 180-230 >50 2.0-4.0 40-100 >70 but less than near occlusion >2230 >50 >4.0 >100 Near occlusion High, low, or undetectable Visible Variable Variable Total occlusion Undetectable Visible, no detectable lumen Not applicable Not applicable *Plaque estimate (diameter reduction) with grayscale and color Doppler US Recommendations for Carotid Stenosis Interpretation Criteria, July 2021, Society of Radiologists in Ultrasound, Intersocietal Accreditation Commission Report reported and signed by Evert Fisher on 07/21/2022 1339 Normal [facility] Mangle Operator Garments CBC AUTO DIFFon 04-18-2022 BASO # 0.1 103/ul Normal 0.0-0.1 [facility] Comment on above: Performed By: #### C BC #### [facility] [address] [place] [address] Dr. Chung Strong Basophils/100 WBC (Bld) 1.3 % Normal 0.2-2.0 [facility] Comment on above: Performed By: #### C BC #### [facility] [address] [place] [address] Dr. Chung Strong EO # 0.1 103/ul Normal 0.0-0.7 [facility] Comment on above: Performed By: #### C BC #### [facility] [address] [address] [address] Chung Strong Eosinophils/100 WBC (Bld) 2.3 % Normal 0.9-7.0 [facility] Comment on above: Performed By: #### C BC #### [facility] [address] [place] [address] Dr. Chung Strong Erythrocyte distribution width (RBC) [Ratio] 13.0 % Normal 11.0-15.0 [facility] Comment on above: Performed By: #### C BC #### [facility] [address] [place] [address] Dr. Chung Strong Hematocrit (Bld) [Volume fraction] 44.7 % Normal 36.0-48.0 [facility] Comment on above: Performed By: #### C BC #### [facility] [address] [place] [address] Dr. Chung Strong Hemoglobin (Bld) [Mass/Vol] 14.9 g/dL Normal 12.0-16.0 [facility] Comment on above: Performed By: #### C BC #### [facility] [address] [place] [address] Dr. Chung Strong IG # 0.02 10e3/ul Normal 0.00-0.03 [facility] Comment on above: Performed By: #### C BC #### [facility] [address] [place] [address] Dr. Chung Strong IG % 0.4 % Normal 0.0-0.5 [facility] Comment on above: Performed By: #### C BC #### [facility] [address] [place] [address] Dr. Chung Strogn LYMPH # 1.7 103/ul Normal 1.2-3.8 [facility] Comment on above: Performed By: #### C BC #### [facility] [address] [place] [address] Dr. Chung Strong Lymphocytes/100 WBC (Bld) 32.3 % Normal 20.5-60.0 [facility] Comment on above: Performed By: #### C BC #### [facility] [address] [place] [address] Dr. Chung Storng MANUAL DIFF REQ NO Normal [facility] Comment on above: Performed By: #### C BC #### [facility] [address] [place] [address] Dr. Chung Strong MCH (RBC) [Entitic mass] 32.2 pg Normal 26.7-34.0 [facility] Comment on above: Performed By: #### C BC #### [facility] [address] [place] [address] Dr. Chung Strong MCHC (RBC) [Mass/Vol] 33.3 g/dL Normal 29.9-35.2 [facility] Comment on above: Performed By: #### C BC #### [facility] [address] [place] [address] Dr. Chung Strong MCV (RBC) [Entitic vol] 96.5 fL Normal 81.0-99.0 [facility] Comment on above: Performed By: #### C BC #### [facility] [address] [place] [address] Dr. Chung Strong MONO # 0.5 103/ul Normal 0.3-0.8 [facility] Comment on above: Performed By: #### C BC #### [facility] [address] [place] [address] Dr. Chung Strong Monocytes/100 WBC (Bld) 9.6 % Normal 1.7-12.0 [facility] Comment on above: Performed By: #### C BC #### [facility] [address] [place] [address] Dr. Chung Strong NEUT # 2.9 103/ul Normal 1.4-6.5 [facility] Comment on above: Performed By: #### C BC #### [facility] [address] [place] [address] Dr. Chung Strong Neutrophils/100 WBC (Bld) 54.1 % Normal 43.0-75.0 [facility] Comment on above: Performed By: #### C BC #### [facility] [address] [place] [address] Dr. Chung Strong Platelet mean volume (Bld) [Entitic vol] 9.9 fL Normal 9.5-13.5 [facility] Comment on above: Performed By: #### C BC #### [facility] [address] [place] [address] Dr. Chung Strong PLT 193 103/ul Normal 150-450 [facility] Comment on above: Performed By: #### C BC #### [facility] [address] [place] [address] Dr. Chung Strong RBC 4.63 106/ul Normal 4.20-5.40 [facility] Comment on above: Performed By: #### C BC #### [facility] [address] [place] [address] Dr. Chung Strong WBC 5.3 103/ul Normal 4.0-11.0 [facility] Comment on above: Performed By: #### C BC #### [facility] [address] [place] [address] Dr. Chung Strong PROF 14(COMP METB)on 022 Albumin [Mass/Vol] 3.8 g/dL Normal 3.4-5.0 [facility] Comment on above: Performed By: #### C MP #### [facility] [address] [place] [address] Dr. Chung Strong Albumin/Globulin [Mass ratio] 1.3 {ratio} Normal [facility] Comment on above: Performed By: #### C MP #### [facility] [address] [place] [address] Dr. Chung Strong ALP [Catalytic activity/Vol] 73 U/L Normal 46-116 [facility] Comment on above: Performed By: #### C MP #### [facility] [address] [place] [address] Dr. Chung Strong ALT [Catalytic activity/Vol] 31 U/L Normal 14-59 [facility] Comment on above: Performed By: #### C MP #### [facility] [address] [place] [address] Dr. Chung Strong Anion gap [Moles/Vol] 9.4 mmol/L Normal [facility] Comment on above: Performed By: #### C MP #### [facility] [address] [place] [address] Dr. Chung Strong AST [Catalytic activity/Vol] 16 U/L Normal 15-37 [facility] Comment on above: Performed By: #### C MP #### [facility] [address] [address] [address] Chung Strong Bilirubin [Mass/Vol] 0.7 mg/dL Normal 0.2-1.0 [facility] Comment on above: Performed By: #### C MP #### [facility] [address] [address] [address] Chung Strong Calcium [Mass/Vol] 9.5 mg/dL Normal 8.5-10.1 [facility] Comment on above: Performed By: #### C MP #### [facility] [address] [address] [address] Chung Strong Chloride [Moles/Vol] 103 mmol/L Normal 98-107 [facility] Comment on above: Performed By: #### C MP #### [facility] [address] [place] [address] Dr. Chung Strong CO2 [Moles/Vol] 31.0 mmol/L Normal 21.0-32.0 [facility] Comment on above: Performed By: #### C MP #### [facility] [address] [address] [address] Chung Strong Creatinine [Mass/Vol] 0.93 mg/dL Normal 0.55-1.02 [facility] Comment on above: Performed By: #### C MP #### [facility] [address] [place] [address] Dr. Chung Strong EGFR-AF INDONESIAN >60 Normal >=60 [facility] Comment on above: Performed By: #### C MP #### [facility] [address] [address] [address] Chung Strong EGFR-NON AF INDONESIAN 58 mL/min/1.73m2 Critically low >=60 [facility] Comment on above: Performed By: #### C MP #### [facility] [address] [address] [address] Chung Strong Globulin (S) [Mass/Vol] 2.9 g/dL Normal [facility] Comment on above: Performed By: #### C MP #### [facility] [address] [address] [address] Chung Strong Glucose [Mass/Vol] 269 mg/dL Critically high 74-106 [facility] Comment on above: Performed By: #### C MP #### [facility] [address] [address] [address] Chung Strong Potassium [Moles/Vol] 3.4 mmol/L Critically low 3.5-5.1 [facility] Comment on above: Performed By: #### C MP #### [facility] [address] [address] [address] Chung Strong Protein [Mass/Vol] 6.7 g/dL Normal 6.4-8.2 [facility] Comment on above: Performed By: #### C MP #### [facility] [address] [address] [address] Chung Strong Sodium [Moles/Vol] 140 mmol/L Normal 136-145 [facility] Comment on above: Performed By: #### C MP #### [facility] [address] [address] [address] Chung Strong Urea nitrogen [Mass/Vol] 22.0 mg/dL Critically high 7.0-18 .0 [facility] Comment on above: Performed By: #### C MP #### [facility] [address] [address] [address] Chung Strong Urea nitrogen/Creatinine [Mass ratio] 23.7 mg/mg Normal [facility] Comment on above: Performed By: #### C MP #### [facility] [address] [address] [address] Chung Strong PROTIMEon 04-18-2022 INR Coag (PPP) [Relative time] 1.01 {INR} Normal [facility] Comment on above: Performed By: #### P TT, PT #### [facility] [address] [address] [address] Chung Strong INR GUIDELINES SEE BELOW Normal [facility] Comment on above: Result Comment: MICAH RED INR: 2.0 - 3.0 CONDITIONS NOT LISTED BELOW 2.5 - 3.5 FOR PROSTHETIC HEART VALVE REPLACEMENT 2.5 - 3.5 RECURRENT THROMBOSIS Performed By: #### P TT, PT #### [facility] [address] [address] [address] Chung Strong PT Coag (PPP) [Time] 10.9 s Normal 9.0-11.6 [facility] Comment on above: Performed By: #### P TT, PT #### [facility] [address] [address] [address] Chung Strong PTTon 04-18-2022 aPTT Coag (Bld) [Time] 30.8 s Normal 22.3-36.2 [facility] Comment on above: Performed By: #### P TT, PT #### [facility] [address] [address] [address] Chung Strong Bacteria Vaginosis, NAAon Atopobium Vaginae Low - 0 Normal . [facility] Comment on above: Order Comment: Reaso n for Exam Vulvar itching;Vulvar irritation;Vaginal discharge Performed By: #### C ANDIDA,NA, VAGINOSIS #### [facility] , BVAB2 Low - 0 Normal . [facility] Comment on above: Order Comment: Reaso n for Exam Vulvar itching;Vulvar irritation;Vaginal discharge Performed By: #### C ANDIDA,NA, VAGINOSIS #### [facility] , Megasphaera Low - 0 Normal . [facility] Comment on above: Order Comment: Reaso n for Exam Vulvar itching;Vulvar irritation;Vaginal discharge Result Comment: Calc ulate total score by adding the 3 individual bacterial vaginosis (BV) marker scores together. Total score is interpreted as follows: Total score 0-1: Indicates the absence of BV. Total score 2: Indeterminate for BV. Additional clinical data should be evaluated to establish a diagnosis. Total score 3-6: Indicates the presence of BV. This test was developed and its performance characteristics determined by [facility]. It has not been cleared or approved by the Food and Drug Administration. Performed By: #### C ANDIDA,NA, VAGINOSIS #### [facility] , Mariely Albicans+Glabrata, N AAon 11-22-2021 Mariely Albicans, [place] Negative Normal Negative [facility] Comment on above: Order Comment: Reaso n for Exam Vulvar itching;Vulvar irritation;Vaginal discharge Result Comment: This test was developed and its performance characteristics determined by [facility]. It has not been cleared or approved by the Food and Drug Administration. Performed By: #### C ANDIDA,NA, VAGINOSIS #### [facility] , Mariely Glabrata, [place] Negative Normal Negative [facility] Comment on above: Order Comment: Reaso n for Exam Vulvar itching;Vulvar irritation;Vaginal discharge Result Comment: This test was developed and its performance characteristics determined by [facility]. It has not been cleared or approved by the Food and Drug Administration. Performed at: =[facility] [id number] Assisted Living Associate: Roma Hinojosa MD, Phone: [phone] PERFORMED BY: [address] [address] PATHOLOGIST PORTAL ADMINISTRATOR VARUN BELCHER M.D. Performed By: #### C ANDIDA,NA, VAGINOSIS #### [facility] , NURSING PROGon 03-01-2019 Protein mass conc HNO ID: [id number] Author: Natalie (Rn) SKYLER Shelton Service: General Surgery Author Type: Registered Nurse Type: Nursing Progress Note Filed: 03/01/2019 8:21 PM Note Text: PACC Nurse Progress Note History AND Physical: PACC Visit Date: 03-01-19 Original HANDP Date: N/A ED visit Date: N/A Outside HANDP Scanned Date: N/A Labs Within Last 6 Months: CBC: Date 03-01-19 BMP/CMP: Date 03-01-19 Within acceptable limits, results in EPIC Imaging Within Last 12 Months: N/A Cardiac Testing: EKG in last 12 Months: Yes: Date: 03-01-19, Comment: Unconfirmed in EPIC Last Menstrual Period: LMP Date: Not recorded Postmenopausal >1yr: Yes, S/P Hysterectomy: Yes BMI Percentile (PEDS): N/A Risk Assessment: N/A Anesthesia Review: N/A Narrative: N/A Pre-op Considerations: Per HANDP: DM (diabetes mellitus) (HCC) Assessment: on oral agents, most recent HgA1C 8.1 ? ? Hypothyroid Assessment: on medication Chart Check: IN PROGRESS-EKG Unconfirmed Natalie Shelton RN March 01, 2019 8:19 PM [facility] Vital Signs Date Time Vital Sign Value Performing Clinician Facility 04-18-2024 09:40-0400 Blood Pressure Location Michael Mayorga [facility] 04-18-2024 09:40-0400 Diastolic blood pressure 68 mm[Hg] Mohviktor Mayorga [facility] 04-18-2024 09:40-0400 Heart rate 84 /min Mohviktor Mayorga [facility] 04-18-2024 09:40-0400 Respiratory rate 16 /min Mohviktor Sierrali [facility] 04-18-2024 09:40-0400 Systolic blood pressure 119 mm[Hg] Mohgetachewd Marielali [facility] 01-30-2024 10:03-0400 Diastolic blood pressure 53 mm[Hg] Mohviktor Sierrali [facility] 01-30-2024 10:03-0400 Heart rate 65 /min Mohgetachewd Marielali [facility] 01-30-2024 10:03-0400 Mean blood pressure 79 mm[Hg] Mohgetachewd Marielali [facility] 01-30-2024 10:03-0400 Respiratory rate 16 /min Mohamad Marielali [facility] 01-30-2024 10:03-0400 SaO2% (BldA) [Mass fraction] 98 % Mohviktor Mayorga [facility] 01-30-2024 10:03-0400 Systolic blood pressure 131 mm[Hg] Mohamad Mouchli [facility] 01-30-2024 09:50-0400 Diastolic blood pressure 59 mm[Hg] Mohamad Mouchli [facility] 01-30-2024 09:50-0400 Heart rate 65 /min Mohamad Mouchli [facility] 01-30-2024 09:50-0400 Mean blood pressure 81 mm[Hg] Mohamad Mouchli [facility] 01-30-2024 09:50-0400 Respiratory rate 13 /min Mohamad Mouchli [facility] 01-30-2024 09:50-0400 SaO2% (BldA) [Mass fraction] 98 % Mohamad Mouchli [facility] 01-30-2024 09:50-0400 Systolic blood pressure 125 mm[Hg] Mohamad Mouchli [facility] 01-30-2024 09:45-0400 Diastolic blood pressure 60 mm[Hg] Mohamad Mouchli [facility] 01-30-2024 09:45-0400 Heart rate 96 /min Mohamad Mouchli [facility] 01-30-2024 09:45-0400 Mean blood pressure 82 mm[Hg] Mohamad Mouchli [facility] 01-30-2024 09:45-0400 Respiratory rate 20 /min Mohamad Mouchli [facility] 01-30-2024 09:45-0400 SaO2% (BldA) [Mass fraction] 99 % Eulaliad Draieluchli [facility] 01-30-2024 09:45-0400 Systolic blood pressure 125 mm[Hg] Mohgetachewd Darieluchli [facility] 01-30-2024 09:38-0400 Body temperature 97.34 [degF] Mohgetachewd Mouchli [facility] 01-30-2024 09:30-0400 Respiratory rate 15 /min Mohgetachewd Darieluchli [facility] 01-30-2024 09:25-0400 Respiratory rate 16 /min Mohamad Darieluchli [facility] 01-30-2024 09:20-0400 Respiratory rate 16 /min Eulaliad Darieluchli [facility] 01-30-2024 08:02-0400 Blood Pressure Location Eulaliad Darieluchli [facility] 01-30-2024 08:02-0400 Body temperature 97.16 [degF] Eulaliad Darieluchli [facility] 01-17-2024 14:37-0400 Diastolic blood pressure 78 mm[Hg] Dulce Holguin [facility] 01-17-2024 14:37-0400 Mean blood pressure 98 mm[Hg] Dulcetimmy StapletonChelsie [facility] 01-17-2024 14:37-0400 Systolic blood pressure 138 mm[Hg] Dulcetimmy StapletonChelsie [facility] 01-17-2024 14:28-0400 Blood Pressure Location Dulce Holguin [facility] 01-17-2024 14:28-0400 Body temperature 97.34 [degF] Dulce Holguin [facility] 01-17-2024 14:28-0400 Diastolic blood pressure 77 mm[Hg] Dulce Holguin [facility] 01-17-2024 14:28-0400 Heart rate 79 /min Dulce Holguin [facility] 01-17-2024 14:28-0400 Systolic blood pressure 141 mm[Hg] Dulce Holguin [facility] 08-14-2023 11:15-0400 Body height 162.56 cm Filemon Villarreal Other [employer] Other 08-14-2023 11:15-0400 Body mass index (BMI) [Ratio] 27.12 kg/m2 Filemon Villarreal Other [employer] Other 08-14-2023 11:15-0400 Body temperature 96.5 [degF] Filemon Villarreal Other [employer] Other 08-14-2023 11:15-0400 Body weight 71.67 kg Filemon Villarreal Other [employer] Other 08-14-2023 11:15-0400 Diastolic blood pressure 70 mm[Hg] Filemon Villarreal Other [employer] Other 08-14-2023 11:15-0400 Respiratory rate 20 /min Filemon Villarreal Other [employer] Other 08-14-2023 11:15-0400 SaO2% (BldA) [Mass fraction] 99 % Ferer Cherelle Other [employer] Other 08-14-2023 11:15-0400 Systolic blood pressure 132 mm[Hg] Christopher Cherelle Other [employer] Other 08-15-2022 12:30-0400 Body height 162.56 cm Christangellaer Cherelle Other [employer] Other 08-15-2022 12:30-0400 Body mass index (BMI) [Ratio] 26.09 kg/m2 Christangellaer Cherelle Other [employer] Other 08-15-2022 12:30-0400 Body temperature 97.4 [degF] Ferer Cherelle Other [employer] Other 08-15-2022 12:30-0400 Body weight 68.95 kg Christangellaer Cherelle Other [employer] Other 08-15-2022 12:30-0400 Diastolic blood pressure 64 mm[Hg] Ferer Cherelle Other [employer] Other 08-15-2022 12:30-0400 Respiratory rate 20 /min Christopher Cherelle Other [employer] Other 08-15-2022 12:30-0400 SaO2% (BldA) [Mass fraction] 97 % Sanjuopher Cherelle Other [employer] Other 08-15-2022 12:30-0400 Systolic blood pressure 120 mm[Hg] Ferer Cherelle Other [employer] Other 05-24-2022 15:55-0400 Body temperature 97.9 [degF] MD Jared Hedrick Work Phone: [facility] 05-24-2022 15:55-0400 Diastolic blood pressure 41 mm[Hg] MD Jared Hedrick Work Phone: [facility] 05-24-2022 15:55-0400 Heart rate 66 /min MD Jared Hedrick Work Phone: [facility] 05-24-2022 15:55-0400 Respiratory rate 16 /min MD Jared Hedrick Work Phone: [facility] 05-24-2022 15:55-0400 SaO2% (BldA) [Mass fraction] 99 % MD Jared Hedrick Work Phone: [facility] 05-24-2022 15:55-0400 Systolic blood pressure 130 mm[Hg] MD Jared Hedrick Work Phone: [facility] Encounters Encounter Date Encounter Type Care Provider Facility Start: 06-11-2024 ambulatory ÁNGELA Cai ty:LIYAH Saleh Start: 04-29-2024 End: 04-29-2024 ambulatory MELLISA PAPPAS Not Available Start: 04-18-2024 End: 04-18-2024 ambulatory Michael Mayorga Facility:[facility] Start: 04-18-2024 End: 04-18-2024 Patient encounter procedure Michael Mayorga [facility] Start: 04-12-2024 End: 04-12-2024 ambulatory WAGNER ALVAREZ Not Available Start: 03-09-2024 End: 03-09-2024 ambulatory KATELIN ORTEGA Not Available Start: 02-23-2024 End: 02-24-2024 ambulatory DIANA RING [facility] Start: 01-30-2024 End: 01-30-2024 ambulatory Michael Mayorga Facility:[facility] Start: 01-30-2024 End: 01-30-2024 Patient encounter procedure Michael Mayorga [facility] Start: 01-17-2024 End: 01-17-2024 ambulatory Dulcetimmy Holguin Facility:[facility] Start: 01-17-2024 End: 01-17-2024 Patient encounter procedure Dulce A Chelsie [facility] Start: 01-12-2024 End: 01-12-2024 ambulatory GERALD HUBBARD Not Available Start: 01-11-2024 ambulatory Michael Wood y:[facility] Start: 12-28-2023 ambulatory Michael Wood y:[facility] Start: 10-13-2023 End: 10-13-2023 ambulatory JARED HEDRICK Not Available Start: 09-04-2023 End: 09-04-2023 ambulatory Rashida ELDRIDGE Facility:[facility] Start: 09-04-2023 End: 09-04-2023 Patient encounter procedure Rashida ELDRIDGE [facility] Start: 08-14-2023 End: 08-14-2023 ambulatory Filemon Villarreal Other [employer] Other Start: 08-14-2023 Office outpatient visit 15 minutes Filemon Villarreal [facility] Start: 02-20-2023 ambulatory LOVE PATEL Facility :UNKNOWN Start: 01-10-2023 End: 01-10-2023 Patient encounter procedure Rashida ELDRIDGE [facility] Start: 12-12-2022 End: 12-13-[address] RASHIDA ELDRIDGE . Facility:[facility] Start: 08-15-2022 End: 08-15-2022 ambulatory Filemon Villarreal Other [facility] [employer] Other Start: 08-15-2022 Office outpatient visit 15 minutes Filemon Villarreal [facility] Start: 05-24-2022 End: 05-24-2022 Discharged Recurring MD Jared Hedrick Work Phone: [facility] Start: 04-18-2022 End: 04-19-[address] JARED HEDRICK Facility:[facility] Start: 03-03-2022 End: 03-03-2022 ambulatory MAYURI BROWN Facility:[facility] Procedures Date Procedure Procedure Detail Performing Clinician Start: 01-30-2024 Colonoscopy Michael Mayorga Start: 01-30-2024 Esophagogastroduodenoscopy Michael valentine Start: 01-13-2017 Colonoscopy Dulce Holguin Start: 04-27-2016 Cystoscopy Rashidaanette ELDRIDGE Start: 04-20-2012 Cystoscopic removal of ureteric stent Rashida ELDRIDGE Start: 04-06-2012 Cystoscopic insertion of ureteric stent Rasihda ELDRIDGE Start: 04-01-2012 Extracorporeal shockwave lithotripsy of calculus of kidney Rashidaanette ELDRIDGE Start: 09-29-2010 Cystoscopy and retrograde pyelography Rashida ELDRIDGE Start: 12-31-2009 Extracorporeal shockwave lithotripsy of calculus of kidney Rashida ELDRIDGE Start: 12-16-2009 Extracorporeal shockwave lithotripsy of calculus of kidney Rashida ELDRIDGE Start: 07-30-2009 Cystoscopic laser lithotripsy of ureteric calculus Rashida ELDRIDGE Start: 07-30-2009 Cystoscopic removal of ureteric stent Rashida ELDRIDGE Start: 06-30-2009 Cystoscopic insertion of ureteric stent Rashida ELDRIDGE Start: 02-28-2008 Repair of musculotendinous cuff of shoulder Rashida ELDRIDGE Start: 11-30-2006 Cystoscopic laser lithotripsy of ureteric calculus Rashida ELDRIDGE Start: 11-30-2006 Cystoscopic removal of ureteric stent Rashida ELDRIDGE Start: 01-28-2006 Extracorporeal shockwave lithotripsy of calculus of kidney Rashida ELDRIDGE Start: 03-30-2005 Extracorporeal shockwave lithotripsy of calculus of kidney Rashida ELDRIDGE Start: 08-30-2002 Cystoscopic insertion of ureteric stent Rashida ELDRIDGE Start: 08-30-2002 Extracorporeal shockwave lithotripsy of calculus of kidney Rashida ELDRIDGE Start: 07-30-2002 Cystoscopic insertion of ureteric stent Rashida ELDRIDGE Start: 07-30-2002 Extracorporeal shockwave lithotripsy of calculus of kidney Rashida ELDRIDGE Start: 10-30-1998 Laminectomy with spinal fusion Rashida Givens COLLINS Appendectomy Rashida ELDRIDGE Bursectomy Rashida ELDRIDGE Cholecystectomy Rashida DAVID MCKINNEY Decompression of median nerve Rashida ELDRIDGE Education about post operative care after adenotonsillectomy Rashida ELDRIDGE History of cholecystectomy S/P cholecyste ctomy Michael Mayorga Hysterectomy Rashida ELDRIDGE Nasal sinus procedure Gurpreet ELDRIDGE Operative procedure on hand Rashida ELDRIDGE Repair of meniscus Rashida Givens NIKOLAYFAYE Immunizations Immunization Date Immunization Notes Care Provider Ashok david 07-11-2023 influenza virus vaccine, unspecified formulation Dulce Holguin [facility] 08-27-2022 SARS-CoV-2 (COVID-19 ) [id number] Rashidaanette ELDRIDGE [facility] 08-11-2022 influenza virus vaccine, unspecified formulation Rashida ELDRIDGE [facility] 11-01-2021 zoster vaccine recombinant Rashida ELDRIDGE [facility] 08-17-2021 influenza virus vaccine, unspecified formulation Rashida ELDRIDGE [facility] 08-04-2021 SARS-CoV-2 (COVID-19 ) mRNA BNT-162b2 vax Rashida ELDRIDGE [facility] Comment on above: Result Comment: 2022: [id number] 05-27-2021 zoster vaccine recombinant Rashida ELDRIDGE [facility] 12-18-2020 COVID-19 Vaccine Pfi zer - Documentation Purposes Only Filemon Villarreal Other [facility] Comment on above: Result Comment: 2022: [id number] 11-27-2020 COVID-19 Vaccine Pfi zer - Documentation Purposes Only Filemon Villarreal Other [facility] Comment on above: Result Comment: 2022: [id number] 10-30-2020 SARS-CoV-2 (COVID-19 ) mRNA BNT-162b2 vax Rashida ELDRIDGE [facility] Comment on above: Result Comment: pt i s fully vaccinated and has had a booster also but does not know the dates 07-15-2020 influenza virus vaccine, unspecified formulation Rashida ELDRIDGE [facility] 11-04-2019 influenza virus vaccine, live, attenuated, for intranasal use Rashida ELDRIDGE [facility] 07-11-2019 influenza virus vaccine, unspecified formulation Rashida EDLRIDGE [facility] 07-12-2018 influenza virus vaccine, unspecified formulation Rashida ELDRIDGE [facility] 07-19-2017 influenza virus vaccine, unspecified formulation Rashida ELDRIDGE [facility] 07-14-2016 influenza virus vaccine, unspecified formulation Rashida ELDRIDGE [facility] Payers Date Payer Category Payer Medicare [id number] 2021 Unknown [id number] 1945 Unknown [id number] 2.16.84 [id number] 1945 Unknown [id number] 2.16.84 [id number] 1945 Unknown [id number] 2.16.84 [id number] 1945 Unknown [id number] 2.16.8 [id number] 1945 Unknown [id number] 2.16.84 [id number] 1943 Unknown [id number] 2.16.84 0.1.485222.3.579.2.1259 1945 Unknown [id number] 2.16.84 [id number] 1943 Unknown [id number] 2.16.84 0.1.186801.3.579.2.1259 1943 Unknown [id number] 2.16.840 .[id number] 1943 Unknown [id number] 2.16.8 40.1.305631.3.579.2.727 1943 Unknown [id number] 2.16.8 40.1.609420.3.579.2.727 1943 Unknown [id number] 2.16.8 40.1.245958.3.579.2.727 1945 Unknown [id number] 2.16.8 [id number] 1945 Unknown [id number] 2.16.8 [id number] Medicare Medicare [id number] 521 [id number] Self-pay Self Pay [id number] Unknown [id number] Social History Date Type Detail Facility Start: 04-29-2021 End: 04-18-2024 Tobacco smoking status NHIS Never smoked tobacco (finding) [facility] Start: 1945 Sex Assigned At Female F [facility] Sex Assigned At [facility] Tobacco smoking status Never [facility] Functional Status Date Assessment Result Facility 04-18-2024 Functional Status N/A [facility] 01-30-2024 Functional Status N/A Vijay Blake [facility] 01-17-2024 Functional Status N/A [facility] Clinical Notes 12-15-2020 to 02-26-2024 Laboratory Note Date & Type Note Facility 02-26-2024 Note Patient: Chelsea lujan Procedure Summary Date: 02/23/24 Room / Location: [facility] Endoscopy Anesthesia Start: 1216 Anesthesia Stop: 1314 Procedures: EGD ENDOSCOPIC ULTRASOUND (UPPER) Diagnosis: Gastric lesion Scheduled Providers: Diana Ring MD; Ashanti Hays MD; AUDRA Motta Responsible Provider: Ashanti Hays MD Anesthesia Type: general ASA Status: 2 Anesthesia Type: general Vitals Value Taken Time BP 146/57 02/23/24 1340 Temp 36 ???C (96.8 ???F) 02/23/24 1310 Pulse 77 02/23/24 1340 Resp 76 02/23/24 1340 SpO2 69 % 02/23/24 1355 Anesthesia Post Evaluation Patient location during evaluation: PACU Patient participation: complete - patient participated Level of consciousness: awake Pain score: 0 Pain management: adequate Airway patency: patent Cardiovascular status: acceptable Respiratory status: acceptable Hydration status: acceptable Patient is hemodynamically stable and is able to be discharged from PACU per anesthesia protocol. No notable events documented. [facility] 02-26-2024 Note Patient: Chelsea lujan Procedure Information Anesthesia Start Date/Time: 02/23/24 1216 Scheduled providers: Diana Ring MD; Ashanti Hays MD; AUDRA Motta Procedures: EGD ENDOSCOPIC ULTRASOUND (UPPER) Location: [facility] Endoscopy Relevant Problems No relevant active problems Clinical information reviewed: Allergies Meds Med Hx Surg Hx OB Status Fam Hx Physical Exam Airway Mallampati: II TM distance: >3 FB Neck ROM: full Cardiovascular - normal exam Rhythm: regular Rate: normal Dental - normal exam Pulmonary - normal exam Abdominal - normal exam Anesthesia Plan ASA 2 MAC The patient is not a current smoker. Patient was not previously instructed to abstain from smoking on day of procedure. Patient did not smoke on day of procedure. Education provided regarding risk of obstructive sleep apnea. intravenous induction Postoperative administration of opioids is intended. Anesthetic plan and risks discussed with patient. Use of blood products discussed with patient who consented to blood products. Plan discussed with CAA. Additional Equipment Requests [facility] 02-23-2024 Note Patient: Chelsea lujan Procedure Summary Date: 02/23/24 Room / Location: [facility] Endoscopy Anesthesia Start: 1216 Anesthesia Stop: Procedures: EGD ENDOSCOPIC ULTRASOUND (UPPER) Diagnosis: Gastric lesion Scheduled Providers: Diana Ring MD; Ashanti Hays MD; AUDRA Motta Responsible Provider: Ashanti Hays MD Anesthesia Type: general ASA Status: Not recorded Anesthesia Post Transport [facility] Patient Monitor: direct observation Transport: uneventful Patient condition is: stable [facility] 02-23-2024 Note Airway Date/Time: 02/23/2024 12:25 PM Urgency: elective Airway not difficult General Information and Staff Patient location during procedure: OR Anesthesiologist: Ashanti Hays MD Resident/CARPENTER RAILCAR/CAA: AUDRA Motta Performed: resident/CARPENTER RAILCAR/CAA Indications and Patient Condition Indications for airway management: anesthesia Spontaneous Ventilation: absent Sedation level: deep Preoxygenated: yes Mask difficulty assessment: 1 - vent by mask Final Airway Details Final airway type: endotracheal airway Successful airway: ETT Cuffed: yes Successful intubation technique: video laryngoscopy Facilitating devices/methods: intubating stylet Endotracheal tube insertion site: oral Blade: Rubi Blade size: #3 ETT size (mm): 7.5 Cormack-Lehane Classification: grade I - full view of glottis Placement verified by: chest auscultation and capnometry Cuff volume (mL): 8 Measured from: lips ETT to lips (cm): 21 Number of attempts at approach: 1 Number of other approaches attempted: 0 [facility] 02-16-2024 Note Medications to take AM day of procedure with sips water only: LEVOTHYROXINE PROTONIX Medication Hold instructions: NSAIDs (Motrin,Aleve): 5 days prior to procedure Vitamins/Supplements: 5 days prior to procedure IF YOU ARE GOING HOME AFTER YOUR SURGERY OR PROCEDURE, FOR YOUR SAFETY, YOUR SURGERY WILL BE CANCELLED IF BOTH OF THE FOLLOWING ARE NOT AVAILABLE: An adult pile driver engineer over the age of 18, that can receive information about your care after surgery, and drive you home. A responsible adult to stay with you for 24 hours in case of an emergency. Can be same as above. The highest risk of complications is within the first 24 hours after sedation/anesthesia. Nothing to eat or drink after midnight the night before surgery. This includes gum, candy, mints, and lozenges. No alcohol, marijuana, or tobacco products including vaping for 24 hours. Please brush your teeth; don't swallow the toothpaste or water. If you use dentures, wear them but do not use paste. Please leave any other removable dental hardware at home. Do not put in contact lenses. Do not wear perfume, make-up, nail palestinian, or lotions on the day of your surgery or procedure. Follow skin-prep/wipe instructions as below if required. Bring with you: *Insurance card *Photo ID *Medication list *Co-pay for visit/prescriptions If applicable: *Rescue inhalers *Green bracelet from lab *CPAP or BiPAP machine, if staying overnight *Any braces, splints, or equipment ordered preoperatively *Remote controls for implanted devices Leave at home: *Purse/Wallet/Romero- unless needed for co-pay *Cell phone (can leave with family/friend or place in locker if needed) *Jewelry (including piercings and wedding bands) *If not possible, ask the person who is waiting with you to keep them Children under the age of 12 will not be allowed into patient care areas. We will call you between 3pm and 4pm the day before your surgery to give you an arrival time. If you do not receive this call, have any questions, or need to make any changes, please call [phone]. Notify your surgeon if you develop any illness such as a cold, cough, fever, sore throat or vomiting between now and your surgery. Thank you for entrusting us with your care. [facility] Surgical Services Team [facility] 01-31-2024 Note [id number] [facility] 01-30-2024 Hospital Discharge instructions Patient Education 01/30/2024 09:45:19 Colonoscopy, Care After Surgery Marie (CUSTOM) Colonoscopy Care After Surgery Please read the instructions outlined below and refer to this sheet in the next few weeks. These discharge instructions provide you with general information on caring for yourself after you leave the hospital. Your doctor may also give you specific instructions. While your treatment has been planned according to the most current medical practices available, unavoidable complications occasionally occur. If you have any problems or questions after discharge, please call your doctor. ACTIVITY You may resume your regular activity, but move at a slower pace for the next 24 hours. Take frequent rest periods for the next 24 hours. Walking will help get rid of the air and reduce the bloated feeling in your abdomen (belly). No driving for 24 hours (because of the anesthesia (medicine) used during the test). You may shower. Do not sign any important legal documents or operate any machinery for 24 hours (because of the anesthesia used during the test). NUTRITION Drink plenty of fluids. You may resume your normal diet as instructed by your doctor. Begin with a light meal and progress to your normal diet. Heavy or fried foods are harder to digest and may make you feel nauseated (sick to your stomach). Avoid alcoholic beverages for 24 hours or as instructed. MEDICATIONS You may resume your normal medications unless your doctor tells you otherwise. WHAT YOU CAN EXPECT TODAY Some feelings of bloating in the abdomen. Passage of more gas than usual. Spotting of blood in your stool or on the toilet paper. FOLLOW-UP Your doctor will discuss the results of your test with you. SEEK IMMEDIATE MEDICAL ATTENTION IF: There is more than a spotting of blood in your stool. There is abdominal distention (your abdomen is swollen). There is vomiting. You have a temperature over 101.5 F. There is abdominal pain or discomfort that is severe or gets worse throughout the day. 01/30/2024 09:45:16 Hemorrhoids, Azwb-lc-Vkej Hemorrhoids Hemorrhoids are swollen veins that may develop: In the butt (rectum). These are called internal hemorrhoids. Around the opening of the butt (anus). These are called external hemorrhoids. Hemorrhoids can cause pain, itching, or bleeding. Most of the time, they do not cause serious problems. They usually get better with diet changes, lifestyle changes, and other home treatments. What are the causes? This condition may be caused by: Having trouble pooping (constipation). Pushing hard (straining) to poop. Watery poop (diarrhea). . Being very overweight (obese). Sitting for long periods of time. Heavy lifting or other activity that causes you to strain. Anal sex. Riding a bike for a long period of time. What are the signs or symptoms? Symptoms of this condition include: Pain. Itching or soreness in the butt. Bleeding from the butt. Leaking poop. Swelling in the area. One or more lumps around the opening of your butt. How is this diagnosed? A doctor can often diagnose this condition by looking at the affected area. The doctor may also: Do an exam that involves feeling the area with a gloved hand (digital rectal exam). Examine the area inside your butt using a small tube (anoscope). Order blood tests. This may be done if you have lost a lot of blood. Have you get a test that involves looking inside the colon using a flexible tube with a camera on the end (sigmoidoscopy or colonoscopy). How is this treated? This condition can usually be treated at home. Your doctor may tell you to change what you eat, make lifestyle changes, or try home treatments. If these do not help, procedures can be done to remove the hemorrhoids or make them smaller. These may involve: Placing rubber bands at the base of the hemorrhoids to cut off their blood supply. Injecting medicine into the hemorrhoids to shrink them. Shining a type of light energy onto the hemorrhoids to cause them to fall off. Doing surgery to remove the hemorrhoids or cut off their blood supply. Follow these instructions at home: Eating and drinking Eat foods that have a lot of fiber in them. These include whole grains, beans, nuts, fruits, and vegetables. Ask your doctor about taking products that have added fiber (fibersupplements). Reduce the amount of fat in your diet. You can do this by: ?Eating low-fat dairy products. ?Eating less red meat. ?Avoiding processed foods. Drink enough fluid to keep your pee (urine) pale yellow. Managing pain and swelling Take a warm-water bath (sitz bath) for 20 minutes to ease pain. Do this 3 4 times a day. You may do this in a bathtub or using a portable sitz bath that fits over the toilet. If told, put ice on the painful area. It may be helpful to use ice between your warm baths. ?Put ice in a plastic bag. ?Place a towel between your skin and the bag. ?Leave the ice on for 20 minutes, 2 3 times a day. General instructions Take rcqy-pcj-xkigtfh and prescription medicines only as told by your doctor. ?Medicated creams and medicines may be used as told. Exercise often. Ask your doctor how much and what kind of exercise is best for you. Go to the bathroom when you have the urge to poop. Do not wait. Avoid pushing too hard when you poop. Keep your butt dry and clean. Use wet toilet paper or moist towelettes after pooping. Do not sit on the toilet for a long time. Keep all follow-up visits as told by your doctor. This is important. Contact a doctor if you: Have pain and swelling that do not get better with treatment or medicine. Have trouble pooping. Cannot poop. Have pain or swelling outside the area of the hemorrhoids. Get help right away if you have: Bleeding that will not stop. Summary Hemorrhoids are swollen veins in the butt or around the opening of the butt. They can cause pain, itching, or bleeding. Eat foods that have a lot of fiber in them. These include whole grains, beans, nuts, fruits, and vegetables. Take a warm-water bath (sitz bath) for 20 minutes to ease pain. Do this 3 4 times a day. This information is not intended to replace advice given to you by your health care provider. Make sure you discuss any questions you have with your health care provider. Document Revised: 04/27/2022 Document Reviewed: 04/27/2022 [employer] Patient Education 2022 [employer]. 01/30/2024 09:45:12 Colon Polyps Colon Polyps Colon polyps are tissue growths inside the colon, which is part of the large intestine. They are one of the types of polyps that can grow in the body. A polyp may be a round bump or a mushroom-shaped growth. You could have one polyp or more than one. Most colon polyps are noncancerous (benign). However, some colon polyps can become cancerous over time. Finding and removing the polyps early can help prevent this. What are the causes? The exact cause of colon polyps is not known. What increases the risk? The following factors may make you more likely to develop this condition: Having a family history of colorectal cancer or colon polyps. Being older than 45 years of age. Being younger than 45 years of age and having a significant family history of colorectal cancer or colon polyps or a genetic condition that puts you at higher risk of getting colon polyps. Having inflammatory bowel disease, such as ulcerative colitis or Crohn's disease. Having certain conditions passed from parent to child (hereditary conditions), such as: ?Familial adenomatous polyposis (FAP). ?Franco syndrome. ?Turcot syndrome. ?Peutz Jeghers syndrome. ?MUTYH-associated polyposis (MAP). Being overweight. Certain lifestyle factors. These include smoking cigarettes, drinking too much alcohol, not getting enough exercise, and eating a diet that is high in fat and red meat and low in fiber. Having had childhood cancer that was treated with radiation of the abdomen. What are the signs or symptoms? Many times, there are no symptoms. If you have symptoms, they may include: Blood coming from the rectum during a bowel movement. Blood in the stool (feces). The blood may be bright red or very dark in color. Pain in the abdomen. A change in bowel habits, such as constipation or diarrhea. How is this diagnosed? This condition is diagnosed with a colonoscopy. This is a procedure in which a lighted, flexible scope is inserted into the opening between the buttocks (anus) and then passed into the colon to examine the area. Polyps are sometimes found when a colonoscopy is done as part of routine cancer screening tests. How is this treated? This condition is treated by removing any polyps that are found. Most polyps can be removed during a colonoscopy. Those polyps will then be tested for cancer. Additional treatment may be needed depending on the results of testing. Follow these instructions at home: Eating and drinking Eat foods that are high in fiber, such as fruits, vegetables, and whole grains. Eat foods that are high in calcium and vitamin D, such as milk, cheese, yogurt, eggs, liver, fish, and broccoli. Limit foods that are high in fat, such as fried foods and desserts. Limit the amount of red meat, precooked or cured meat, or other processed meat that you eat, such as hot dogs, sausages, davalos, or meat loaves. Limit sugary drinks. Lifestyle Maintain a healthy weight, or lose weight if recommended by your health care provider. Exercise every day or as told by your health care provider. Do not use any products that contain nicotine or tobacco, such as cigarettes, e-cigarettes, and chewing tobacco. If you need help quitting, ask your health care provider. Do not drink alcohol if: ?Your health care provider tells you not to drink. ?You are , may be , or are planning to become . If you drink alcohol: ?Limit how much you use to: ?0 1 drink a day for women. ?0 2 drinks a day for men. ?Know how much alcohol is in your drink. In the [place] one drink equals one 12 oz bottle of beer (355 mL), one 5 oz glass of wine (148 mL), or one 1 oz glass of hard liquor (44 mL). General instructions Take hytx-jpl-dtjihqr and prescription medicines only as told by your health care provider. Keep all follow-up visits. This is important. This includes having regularly scheduled colonoscopies. Talk to your health care provider about when you need a colonoscopy. Contact a health care provider if: You have new or worsening bleeding during a bowel movement. You have new or increased blood in your stool. You have a change in bowel habits. You lose weight for no known reason. Summary Colon polyps are tissue growths inside the colon, which is part of the large intestine. They are one type of polyp that can grow in the body. Most colon polyps are noncancerous (benign), but some can become cancerous over time. This condition is diagnosed with a colonoscopy. This condition is treated by removing any polyps that are found. Most polyps can be removed during a colonoscopy. This information is not intended to replace advice given to you by your health care provider. Make sure you discuss any questions you have with your health care provider. Document Revised: 02/03/2021 Document Reviewed: 02/03/2021 [employer] Patient Education 2022 [employer] 01/30/2024 09:45:06 Endoscopy, Care After Procedure [facility] [place] ([facility]) Endoscopy Care After Procedure Please read the instructions outlined below and refer to this sheet in the next few weeks. These discharge instructions provide you with general information on caring for yourself after you leave the hospital. Your doctor may also give you specific instructions. While your treatment has been planned according to the most current medical practices available, unavoidable complications occasionally occur. If you have any problems or questions after discharge, please call your doctor. ACTIVITY You may resume your regular activity but move at a slower pace for the next 24 hours. Take frequent rest periods for the next 24 hours. Walking will help expel (get rid of) the air and reduce the bloated feeling in your abdomen. No driving for 24 hours (because of the anesthesia (medicine) used during the test). You may shower. Do not sign any important legal documents or operate any machinery for 24 hours (because of the anesthesia used during the test). NUTRITION Drink plenty of fluids. You may resume your normal diet. Begin with a light meal and progress to your normal diet. Avoid alcoholic beverages for 24 hours or as instructed by your caregiver. MEDICATIONS You may resume your normal medications unless your caregiver tells you otherwise. WHAT YOU CAN EXPECT TODAY You may experience abdominal discomfort such as a feeling of fullness or gas pains. FOLLOW-UP Your doctor will discuss the results of your test with you. SEEK IMMEDIATE MEDICAL ATTENTION IF ANY OF THE FOLLOWING OCCUR: Excessive nausea (feeling sick to your stomach) and/or vomiting. Severe abdominal pain and distention (swelling). Trouble swallowing. Temperature over 100 F (37.8 C). Rectal bleeding or vomiting of blood. Document Released: 05/30/2005 Document Re-Released: 04/09/2007 [employer] Patient Information [employer]. 01/30/2024 09:44:56 Duodenitis Duodenitis Duodenitis is inflammation of the lining of the first part of the small intestine (duodenum). It is commonly caused by an infection from bacteria, which may also lead to open sores (ulcers) in the intestine. Duodenitis may develop suddenly and last for a short time (acute), or it may develop gradually and last for months or years (chronic). What are the causes? The most common cause of duodenitis is an infection from a type of bacteria called Helicobacter pylori (H. pylori). Other causes of this condition include: Long-term use of NSAIDs. Excessive use of alcohol. An infection of the small intestine caused by the Giardia parasite (giardiasis). Crohn's disease. Certain diseases of the body's defense system (immune system). Certain treatments for cancer. What increases the risk? The following factors may make you more likely to develop this condition: Smoking cigarettes. Drinking alcohol. Having a family history of duodenitis. Taking NSAIDs. Eating a high-fat diet. What are the signs or symptoms? Symptoms of this condition may include: Gnawing or burning pain in the upper center of the abdomen (epigastric pain). This may get worse when the stomach is empty and may get better after eating. Abdominal cramps. Nausea and vomiting. Bloody vomit. Stools that are bloody, dark, or look like tar. Diarrhea. Weight loss. Fatigue. How is this diagnosed? This condition may be diagnosed based on your medical history and a physical exam. You may also have tests, such as: Blood tests. Stool tests. A test that checks the gases in your breath. An X-ray that is done after you swallow a liquid (barium) that makes your digestive tract easier to see. Endoscopy. This is an exam of the duodenum that is done by putting a thin tube with a tiny camera on the end (endoscope) down your throat. A sample of tissue from your duodenum (biopsy) may be removed with the endoscope and examined under a microscope for signs of inflammation and infection. How is this treated? Treatment depends on the cause of your condition. Treatment may include: Antibiotic medicine to treat H. pylori infection. Stopping your intake of NSAIDs. Medicine to reduce stomach acids. Medicines to treat other conditions, such as Crohn's disease or giardiasis. Surgery to treat severe inflammation that causes scarring or severe bleeding. Follow these instructions at home: Medicines Take tdel-tkf-yxnaobo and prescription medicines only as told by your health care provider. If you were prescribed an antibiotic medicine, take it as told by your health care provider. Do not stop taking the antibiotic even if you start to feel better. Eating and drinking Eat small, frequent meals. Do not drink alcohol. Drink enough water to keep your urine pale yellow. Follow instructions from your health care provider about eating or drinking restrictions. You may be asked to avoid: ?Caffeinated drinks. ?Chocolate. ?Peppermint or mint-flavored food or drinks. ?Garlic or onions. ?Spicy foods. ?Closter fruits. ?Tomato-based foods. ?Fatty or fried foods. General instructions Do not use any products that contain nicotine or tobacco, such as cigarettes and e-cigarettes. If you need help quitting, ask your health care provider. Keep all follow-up visits as told by your health care provider. This is important. Contact a health care provider if: You have a fever. Your symptoms come back, get worse, or do not get better with treatment. Get help right away if: You vomit blood. You have severe abdominal pain. Your abdomen swells and is painful. You have a lot of blood in your stool. You feel dizzy or light-headed. Summary Duodenitis is inflammation of the lining of the first part of the small intestine. This part of the small intestine is called the duodenum. Duodenitis may develop suddenly and last for a short time (acute), or it may develop gradually and last longer (chronic). The most common cause of duodenitis is an infection from a type of bacteria. Take xedj-oer-ngkkdev and prescription medicines only as told by your health care provider. This information is not intended to replace advice given to you by your health care provider. Make sure you discuss any questions you have with your health care provider. Document Revised: 04/26/2022 Document Reviewed: 04/27/2022 [employer] Patient Education 2022 [employer]. 01/30/2024 09:44:51 Hiatal Hernia Hiatal Hernia A hiatal hernia occurs when part of the stomach slides above the muscle that separates the abdomen from the chest (diaphragm). A person can be born with a hiatal hernia (congenital), or it may develop over time. In almost all cases of hiatal hernia, only the top part of the stomach pushes through the diaphragm. Many people have a hiatal hernia with no symptoms. The larger the hernia, the more likely it is that you will have symptoms. In some cases, a hiatal hernia allows stomach acid to flow back into the tube that carries food from your mouth to your stomach (esophagus). This may cause heartburn symptoms. The development of heartburn symptoms may mean that you have a condition called gastroesophageal reflux disease (GERD). What are the causes? This condition is caused by a weakness in the opening (hiatus) where the esophagus passes through the diaphragm to attach to the upper part of the stomach. A person may be born with a weakness in the hiatus, or a weakness can develop over time. What increases the risk? This condition is more likely to develop in: Older people. Age is a major risk factor for a hiatal hernia, especially if you are over the age of 50. women. People who are overweight. People who have frequent constipation. What are the signs or symptoms? Symptoms of this condition usually develop in the form of GERD symptoms. Symptoms include: Heartburn. Upset stomach (indigestion). Trouble swallowing. Coughing or wheezing. Wheezing is making high-pitched whistling sounds when you breathe. Sore throat. Chest pain. Nausea and vomiting. How is this diagnosed? This condition may be diagnosed during testing for GERD. Tests that may be done include: X-rays of your stomach or chest. An upper gastrointestinal (GI) series. This is an X-ray exam of your GI tract that is taken after you swallow a chalky liquid that shows up clearly on the X-ray. Endoscopy. This is a procedure to look into your stomach using a thin, flexible tube that has a tiny camera and light on the end of it. How is this treated? This condition may be treated by: Dietary and lifestyle changes to help reduce GERD symptoms. Medicines. These may include: ?Nkra-swp-kqxmftb antacids. ?Medicines that make your stomach empty more quickly. ?Medicines that block the production of stomach acid (H2 blockers). ?Stronger medicines to reduce stomach acid (proton pump inhibitors). Surgery to repair the hernia, if other treatments are not helping. If you have no symptoms, you may not need treatment. Follow these instructions at home: Lifestyle and activity Do not use any products that contain nicotine or tobacco. These products include cigarettes, chewing tobacco, and vaping devices, such as e-cigarettes. If you need help quitting, ask your health care provider. Try to achieve and maintain a healthy body weight. Avoid putting pressure on your abdomen. Anything that puts pressure on your abdomen increases the amount of acid that may be pushed up into your esophagus. ?Avoid bending over, especially after eating. ?Raise the head of your bed by putting blocks under the legs. This keeps your head and esophagus higher than your stomach. ?Do not wear tight clothing around your chest or stomach. ?Try not to strain when having a bowel movement, when urinating, or when lifting heavy objects. Eating and drinking Avoid foods that can worsen GERD symptoms. These may include: ?Fatty foods, like fried foods. ?Closter fruits, like oranges or lemon. ?Other foods and drinks that contain acid, like orange juice or tomatoes. ?Spicy food. ?Chocolate. Eat frequent small meals instead of three large meals a day. This helps prevent your stomach from getting too full. ?Eat slowly. ?Do not lie down right after eating. ?Do not eat 1 2 hours before bed. Do not drink beverages with caffeine. These include cola, coffee, cocoa, and tea. Do not drink alcohol. General instructions Take apvm-smt-imgmjok and prescription medicines only as told by your health care provider. Keep all follow-up visits. Your health care provider will want to check that any new prescribed medicines are helping your symptoms. Contact a health care provider if: Your symptoms are not controlled with medicines or lifestyle changes. You are having trouble swallowing. You have coughing or wheezing that will not go away. Your pain is getting worse. Your pain spreads to your arms, neck, jaw, teeth, or back. You feel nauseous or you vomit. Get help right away if: You have shortness of breath. You vomit blood. You have bright red blood in your stools. You have black, tarry stools. These symptoms may be an emergency. Get help right away. Call 911. Do not wait to see if the symptoms will go away. Do not drive yourself to the hospital. Summary A hiatal hernia occurs when part of the stomach slides above the muscle that separates the abdomen from the chest. A person may be born with a weakness in the hiatus, or a weakness can develop over time. Symptoms of a hiatal hernia may include heartburn, trouble swallowing, or sore throat. Management of a hiatal hernia includes eating frequent small meals instead of three large meals a day. Get help right away if you vomit blood, have bright red blood in your stools, or have black, tarry stools. This information is not intended to replace advice given to you by your health care provider. Make sure you discuss any questions you have with your health care provider. Document Revised: 12/13/2022 Document Reviewed: 12/13/2022 [employer] Patient Education 2022 [employer]. Follow Up Care 01/17/2024 15:27:54 With:Mukesh SILVER, SUKH Gimenez, [facility] Address: When: Unknown Comments:Call for any problems. The office will reach out in about one week from procedure date. [facility] 01-17-2024 Hospital Discharge instructions Patient Education 01/17/2024 14:29:52 Chronic Diarrhea Chronic Diarrhea Chronic diarrhea is a condition in which a person passes frequent loose and watery stools for 4 weeks or longer. Non-chronic diarrhea usually lasts for only 2 3 days. Diarrhea can cause a person to feel weak and dehydrated. Dehydration can make the person tired and thirsty. It can also cause a dry mouth, decreased urination, and dark yellow urine. Diarrhea is a sign of an underlying problem, such as: Infection. Side effects of medicines. Problems digesting something in your diet, such as milk products if you have lactose intolerance. Conditions such as celiac disease, irritable bowel syndrome (IBS), or inflammatory bowel disease (IBD). If you have chronic diarrhea, make sure you treat it as told by your health care provider. Follow these instructions at home: Medicines Take cuuq-srj-dufrvnj and prescription medicines only as told by your health care provider. If you were prescribed an antibiotic medicine, take it as told by your health care provider. Do not stop taking the antibiotic even if you start to feel better. Eating and drinking Follow instructions from your health care provider about what to eat and drink. You may have to: ?Avoid foods that trigger diarrhea for you. ?Take an oral rehydration solution (ORS). This is a drink that keeps you hydrated. It can be found at pharmacies and retail stores. ?Drink clear fluids, such as water, diluted fruit juice, and low-calorie sports drinks. You can also get fluids by sucking on ice chips. ?Drink enough fluid to keep your urine pale yellow. This will help you avoid dehydration. ?Eat small amounts of bland foods that are easy to digest as you are able. These foods include bananas, applesauce, rice, lean meats, toast, and crackers. ?Avoid spicy or fatty foods. ?Avoid foods and beverages that contain a lot of sugar or caffeine. Do not drink alcohol if: ?Your health care provider tells you not to drink. ?You are , may be , or are planning to become . If you drink alcohol: ?Limit how much you use to: ?0 1 drink a day for women. ?0 2 drinks a day for men. ?Be aware of how much alcohol is in your drink. In the [place] one drink equals one 12 oz bottle of beer (355 mL), one 5 oz glass of wine (148 mL), or one 1 oz glass of hard liquor (44 mL). General instructions Wash your hands often and after each diarrhea episode. Use soap and water. If soap and water are not available, use hand pyridine operator. Make sure that all people in your household wash their hands well and often. Rest as told by your health care provider. Watch your condition for any changes. Take a warm bath to relieve any burning or pain from frequent diarrhea episodes. Keep all follow-up visits as told by your health care provider. This is important. Contact a health care provider if: You have a fever. Your diarrhea gets worse or does not get better. You have new symptoms. You cannot drink fluid without vomiting. You feel light-headed or dizzy. You have a headache. You have muscle cramps. You have severe pain in the rectum. Get help right away if: You have vomiting that does not go away. You have chest pain. You feel very weak or you faint. You have bloody or black stools, or stools that look like tar. You have severe pain, cramping, or bloating in your abdomen, or pain that stays in one place. You have trouble breathing or you are breathing very quickly. Your heart is beating very quickly. Your skin feels cold and clammy. You feel confused. You have a severe headache. You have signs or symptoms of dehydration, such as: ?Dark urine, very little urine, or no urine. ?Cracked lips. ?Dry mouth. ?Sunken eyes. ?Sleepiness. ?Weakness. These symptoms may represent a serious problem that is an emergency. Do not wait to see if the symptoms will go away. Get medical help right away. Call your local emergency services (911 in the [place] Do not drive yourself to the hospital. Summary Chronic diarrhea is a condition in which a person passes frequent loose and watery stools for 4 weeks or longer. Diarrhea is a sign of an underlying problem. Make sure you treat your diarrhea as told by your health care provider. Drink enough fluid to keep your urine pale yellow. This will help you avoid dehydration. Wash your hands often and after each diarrhea episode. If soap and water are not available, use hand pyridine operator. This information is not intended to replace advice given to you by your health care provider. Make sure you discuss any questions you have with your health care provider. Document Revised: 01/06/2023 Document Reviewed: 04/13/2020 [employer] Patient Education 2022 [employer]. Follow Up Care 01/03/2024 11:24:19 With:Dulce Holguin CNP Address: When:1 to 2 weeks Comments:Following colonoscopy. [facility] 01-17-2024 Evaluation + Plan note Future Scheduled TestsFecal WBC Lactoferrin 01/17/24Giardia lamblia, Direct Detection EIA 01/17/24O & P Exam, Routine 01/17/24Clostridium Difficile PCR 01/17/24Enteric Panel by PCR 01/17/24 [facility] 08-14-2023 Evaluation note Encounter Date Diagnosis Assessment Notes Jul, Pulmonary embolism (ICD-10 - I26.99) [employer] Other 04-07-2023 NoteHISTORY: Bone density screening COMPARISON: None available. PROCEDURE: Imaging of the right forearm and bilateral hips obtained for bone density evaluation. FINDINGS: REGION BMD (g/cm??) YOUNG ADULT T-SCORE AGE-MATCHED Z-SCORE LEFT NECK 0.834 -0.1 2.2 RIGHT NECK 0.936 0.8 3.1 RIGHT FOREARM 0.582 0 3 The mean BMD and corresponding T-score listed above indicates: Normal Bone Mass and places the patient at no significant risk for fracture. This information can serve as a baseline with which to compare future studies. Recommend follow-up exam in 2 years, sooner as clinically necessary. Comment: The T-score is the primary focus of the interpretation of a patient???s bone mineral density measurement. The T-score is the number of standard deviations and individual is above or below the mean value for a young female having normal bone mass. The WHO defines osteoporosis based on the T-score value: +1.0 to -0.9 : Normal bone mass -1.0 to -2.5 : Osteopenia and thus may be at future risk of fracture. -2.6 to -5.0 : Osteoporosis and at significantly increased risk of fracture. IMPRESSION: NORMAL BONE MASS : TWO YEAR FOLLOW-UP RECOMMENDED Report reported and signed by Jared Morrissey on 02/03/2023 [id number]03-14-2023 Hospital Discharge instructions Patient Education 01/10/2023 11:49:36 EU - Cystoscopy with Urethral Dilation Discharge Instructions (CUSTOM) Cystoscopy with Urethral Dilation Voiding after the procedure: there may be some pain, urethral bleeding, burning, urgency, frequencyand blood tinged urine following the procedure. These symptoms usually resolve within 2-5 days. Drink the amount of fluid it takes to keep the urine pink to yellow or clear in color. Drinking enough water and fluids will help to ease any discomfort after your procedure. If you are having problems that seem out of the ordinary, please call. If unable to contact your physician and you feel it is an emergency, go to the nearest emergency room or call 911 Diet you may resume your normal diet. Activity you may resume your normal activities Call if you have a fever over 100 degrees Follow Up Care 12/12/2022 14:54:07 With:Rashida ELDRIDGE Address: [facility] [address] [place] [address]- Business (1) When:09/12/2023 11:49:18 [facility]10-17-2022 Evaluation note* Encounter Date Diagnosis Assessment Notes Treatment Notes Treatment Clinical Notes Jul, Pulmonary embolism (ICD-10 - I26.99) [employer] Other 05-05-2022 NoteOPERATIVE NOTE OPERATION DATE: 03/03/2022 SURGEON: Mayuri Brown M.D. PREOPERATIVE DIAGNOSIS: Nuclear sclerotic cataract left eye. POSTOPERATIVE DIAGNOSIS: Nuclear sclerotic cataract left eye. PROCEDURE NAME: Cataract extraction with intraocular lens placement for the left eye. ANESTHESIA: Topical. ESTIMATED BLOOD LOSS: Zero. COMPLICATIONS: None. PROCEDURE: The patient was brought to the Operating Room in supine position. After proper identification, the left eye was prepped and draped in a sterile ophthalmic fashion. A paracentesis created at the 5 o'clock position. Approximately 1 mL of unpreserved Xylocaine was injected into the anterior chamber followed by Amvisc Plus. Using a 2.6 mm Keratome blade, a clear corneal incision was created at the 3 o'clock limbus. A cystotome was then used to begin a curvilinear capsulorrhexis that was continued for 360 degrees with the Utrata forceps. BSS on a 26 gauge cannula was injected beneath the anterior capsule to hydrodissect as well as hydrodelineate the lens. After ensuring mobility, phacoemulsification was performed in a kezgsna-tfe-eoxuaw-type fashion. After all nuclear material had been removed from the eye, IA was introduced and all residual cortical material was cleaned up. Additional Amvisc Plus was injected into the posterior bag and a lens model MX60, 22.0 diopters was injected and dialed into position. After ensuring centration, IA was reintroduced into the anterior chamber and all residual Amvisc Plus removed from the eye. BSS on a 30 gauge cannula was injected into the stroma of both the clear corneal incision as well as paracentesis to hydrate the wounds. Additional BSS was injected into the anterior chamber to pressurize the eye at approximately 20 to 22 mmHg by finger tension. 0.1 mL of antibiotic was injected into the anterior chamber. Weck-Lindsay sponges were used to check the wounds to be watertight. One drop of apraclonidine and one drop of prednisolone acetate were placed into the eye and a shield was placed over top. The patient was sent to the postoperative area in satisfactory condition to follow up the following day for postoperative care. [facility] Signed and Approved by: MAYURI BROWN 04/01/2022 15:27:00[facility]05-05-2022 NoteHISTORY AND PHYSICAL EXAMINATION HISTORY: Patient is a 5-year-old white female with complaints of declining vision out of her left eye. She believes over two years now, she has noticed that the left had declined in her vision, especially noticed while driving. Road signs at a distance are difficult, as well as glare at night time with headlights. She states having difficulty with reading as well. PAST OCULAR HISTORY: 1. Dry, age-related macular degeneration. 2. Cataract bilaterally. PAST MEDICAL HISTORY: 1. Non-insulin dependent diabetes mellitus. 2. Rotator cuff repair on the right side. 3. Appendectomy. 4. Laparoscopic cholecystectomy. 5. History of a DVT. 6. Hypercholesterolemia. SOCIAL HISTORY: Denies tobacco, alcohol or recreational drug abuse. SYSTEMIC MEDICATIONS: Xarelto, triamcinolone acetonide, mirtazapine, simvastatin, Levoxyl, nystatin, hydrochlorothiazide, glimepiride, Glyxambi, citalopram. ALLERGIES: To tramadol, tobramycin, sulfa, Pyridium, Phenergan, penicillin, Z-Howie, Demerol, Cipro and Avelox. REVIEW OF SYSTEMS: No pertinent positives. PHYSICAL EXAM: VITALS: Blood pressure measured 110/80, respiration of 12 and pulse of 77. GENERAL: She is awake, alert and oriented x3, well developed, well nourished, in no acute distress. HEART: Regular rate and rhythm. LUNGS: Clear bilaterally. ABDOMEN: Soft, non-tender, non-distended. EXTREMITIES: No pitting edema. OPHTHALMIC EXAM: Revealed a visual acuity of 20/30 -2 that glared to 20/100 bilaterally. Pupils motility, muscle balance, confrontational visual gunter within normal limits bilaterally. Pressures measured at 16 bilaterally. Slit lamp exam revealed blepharitis with a severe decrease in tear film bilaterally. Conjunctiva, cornea, anterior chamber and iris were within normal limits bilaterally. Lens status demonstrated a 2+ nuclear sclerosis with 2+ cortical changes and vacuoles bilaterally. FUNDUS EXAM: Revealed good views with good dilation bilaterally. Optic discs, macula, vessels, periphery and vitreous were within normal limits bilaterally. ASSESSMENT AND PLAN: 1. Visually significant cataract, left eye. After risks, benefits, alternatives, as well as expectations were delivered to the patient, she elected to go forward with cataract removal. She understands the risks include but not limited to infection, bleeding, loss of vision, loss of the eye itself. Secondly, she understands postoperatively she is likely to require spectacle correction for best visual acuity. Finally, a complete ophthalmic exam was performed, there is not determined to be any other source of visual decline other than that of the cataract. 2. COVID-19, the patient was briefed in the office and consented for elective cataract surgery in the setting of the pandemic of coronavirus. She understands that she is at heightened risk going into a hospital setting; however, feels that her activities of daily living are depleted severe enough by her cataracts that she is willing to incur this risk and go forward with her elective procedure. [facility] Signed and Approved by: MAYURI BROWN 03/04/2022 12:13:00[facility]02-16-2021 NotePatient Outreach (COVAMN) CHELSEA CURRY ([id number]) 1945 F Date Time Provider Department 12/15/20 MUNIRA GOSS During your visit today, we recorded the following information about you: Allergies As of Date: 12/15/2020 Noted Allergy Reaction AVELOX (MOXIFLOXACIN HCL) 07/19/2012 6 - Diarrhea Comments: also stomach pain CIPROFLOXACIN 03/01/2019 6 - Diarrhea CODEINE 03/01/2019 11 - Vomiting DEMEROL (MEPERIDINE (PF)) 07/19/2012 1 - Mental Status Change Comments: hyper NEBCIN (TOBRAMYCIN SULFATE) 03/01/2019 2 - Rash PENICILLINS 07/19/2012 2 - Rash PHENERGAN (PROMETHAZINE HCL) 07/19/2012 4 - Hives POTASSIUM CITRATE 07/19/2012 2 - Rash PYRIDIUM (PHENAZOPYRIDINE HCL) 07/19/2012 11 - Vomiting Comments: also dyes, scallops,and codeine nausea also SCALLOPS 03/01/2019 11 - Vomiting SULFA DYNE 07/19/2012 2 - Rash TOBRAMYCIN 07/19/2012 4 - Hives ULTRAM (TRAMADOL HCL) 03/01/2019 11 - Vomiting Date Reviewed: 03/05/2019 Reviewed by: James Sheppard - Fully Assessed Order(s):SARS-COVID VACCINE 1ST DOSE APPT [[id number]] Order #: [id number] FUTURE Prescriptions as of 12/15/2020 Sig: HYDROCHLOROTHIAZIDE 25 MG TAB* Take 25 mg by mouth once lala* MIRTAZAPINE ORAL Take 25 mg by mouth daily at * ACETAMINOPHEN 500 MG TABLET Take 500 mg by mouth as neede* GLIMEPIRIDE 4 MG TABLET Take 4 mg by mouth once daily. SITAGLIPTIN 100 MG TABLET Take 100 mg by mouth once luz* CITALOPRAM 10 MG TABLET Take 10 mg by mouth once lala* * VITAMIN B COMPLEX TABLET Take 1 tablet by mouth once d* * NABUMETONE 500 MG TABLET Take 1 tablet by mouth twice * * LEVOTHYROXINE 100 MCG TABLET Take 1 tablet by mouth once d* * TRAZODONE 50 MG TABLET Take 1 tablet by mouth daily * * MOMETASONE 50 MCG/ACTUATION N* Use 2 Sprays in the nose twic* * CYCLOBENZAPRINE 10 MG TABLET Take 1 tablet by mouth every * * FEXOFENADINE 60 MG-PSEUDOEPHE* Take 1 tablet by mouth twice * * VIT C,E,ZINC,NJ-HNZGO-6-LUTEI* Take by mouth. * CHOLECALCIFEROL (VITAMIN D3) * Take 1 tablet by mouth once d* * OMEGA-3 FATTY ACIDS 1,000 MG * 1,200 mg. twice daily * SIMVASTATIN 20 MG TABLET Take 1 tablet by mouth daily * Problem List As Of Date 12/15/2020 Noted Resolved Glucose intolerance (impaired glucose tolerance*07/19/2012 Hypothyroid [E03.9] 07/19/2012 More... 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 Hiatal hernia [K44.9] Encounter Status:Closed by EPIC, PRODUSER on 12/18/20[facility] Evaluation + Plan note Future Appointments Appointment Date:09/04/2023 12:15:00 PM Scheduled Provider:Rashida ELDRIDGE MD Location:[facility] Future Appointments Appointment Date:01/30/2024 08:45:00 AM Scheduled Provider: Location:[facility] Appointment Type:Surgery FT Future Scheduled Tests Laboratory* Fecal WBC Lactoferrin 01/17/24 * Giardia lamblia, Direct Detection EIA 01/17/24 * O & P Exam, Routine 01/17/24 * Clostridium Difficile PCR 01/17/24 * Enteric Panel by PCR 01/17/24 [facility] Evaluation noteNo assessment information available [facility] Work Phone: History general Narrative - Reported* Type Description Date Medical History diabetes Medical History kidney stones Medical History high cholesterol Medical History sleep problems Medical History pulmonary embolism Surgical History Tonsils and Adenoids Surgical History Total Hysterectomy Surgical History Appendectomy Surgical History Cholysectomy Surgical History bursa removed from rt hip Surgical History L4 and 5 Fusion Surgical History Arthoscopy of rt knee Surgical History Rt Rotator Cuff Surgical History Carpel Tunnel Repair Surgical History Bladder Suspension Surgical History Nasal Surgery Surgical History Lithotripsey, Kidney Stones Surgical History 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 and chest pain 04/25/21 [place] [facility] [place]21 [employer] Other Hospital course Narrative No data available for this section [facility] No data available for this section [facility] progress note No data available for this section [facility] Summary Purpose Family History No Family History Records FoundNo Family History Records FoundNo Family History Records FoundNo Family History Records FoundNo Family History Records FoundNo Family History Records Found No data available for this section No data available for this section No data available for this section No Family History Records Found No data available for this section No Family History Records FoundNo Family History Records Found Advance Directives No Advanced Directives Records Found Advance Directive Response Recorded Date/ Time Advance Directives Yes June 11:37am Chief Complaint and Reason for Visit Chief Complaint COVID+. Additional Source Comments INFORMATION SOURCE (unrecogn ized section and content) DATE CREATED AUTHOR 03/10/2019 [facility] DATE CREATED AUTHOR AUTHOR'S ORGANIZ ATION 11/16/2021 [facility] DATE CREATED AUTHOR AUTHOR'S ORGANIZ ATION 05/26/2022 [facility] DATE CREATED AUTHOR AUTHOR'S ORGANIZ ATION 12/19/2022 [facility] DATE CREATED AUTHOR AUTHOR'S ORGANIZ ATION 02/21/2023 [facility] DATE CREATED AUTHOR AUTHOR'S ORGANIZ ATION 03/01/2023 [facility] DATE CREATED AUTHOR AUTHOR'S ORGANIZ ATION 02/27/2024 [facility] DATE CREATED AUTHOR AUTHOR'S ORGANIZ ATION 04/29/2024 [facility] EPIC DATE CREATED AUTHOR AUTHOR'S ORGANIZ ATION 05/23/2024 [facility] Care Teams (unrecognized sec tion and content) Team Status: Inactive Member Role Status Dates Jraed Hedrick MD Primary Care Provider Active RAUL Mann Attending Provider Savannah chang Team Status: Active Member Role Status Dates Jared Hedrick MD Primary Care Provider Active Goals (unrecognized section and content) Goals may be documented in a n alternate sectionNo Information No data available for this sectionNo Information No data available for this section No data available for this section No data available for this section No data available for this section REASON FOR VISIT (unrecogniz ed section and content) 1 yr f/u PE1 yr f/u PE FOR RECORDS PERTAINING TO PATIENTS WHO ARE OR HAVE BEEN ENROLLED IN A CHEMICAL DEPENDENCY/SUBSTANCEABUSE PROGRAM, SOME INFORMATION MAY BE OMITTED. This clinical summary was aggregated from multiple sources. Caution should be exercised in using it in the provision of clinical care. This summary normalizes information from multiple sources, and as a consequence, information in this document may materially change the coding, format and clinical context of patient data. In addition, data may be omitted in some cases. CLINICAL DECISIONS SHOULD BE BASED ON THE PRIMARY CLINICAL RECORDS. [facility] [employer] provides no warranty or guarantee of the accuracy or completeness of information in this document.
== END 2024-06-10 11:01 | disposition home or self-care (01) ==
LOC: RAD 11:03
PROVIDERS: PCP Internal Medicine; Visit Provider Physician Assistant
DX: N20.0 Calculus of kidney (principal)
CPT/HCPCS: 74018

== ENCOUNTER 2025-02-05 08:50 | Outpatient (OUT) | payer OTHER, SELFPAY ==
--- NOTE | 2025-02-05 08:57 | XR_ITS ---
The [address] [address] Patient Name: DEBBIE CURRY MRN: [id number] date: 1945 Sex: F Assigned Patient Location: [facility] Current Patient Location: [facility] Accession/Order Number: [id number] Exam Date: 02/05/2025 09:48 Report Date: 02/05/2025 09:51 At the request of: GIA SHARP NP Procedure: XR abdomen 1V KUB: CLINICAL INFORMATION: Stone follow-up COMPARISON: KUB 06/10/2024 FINDINGS: Liver cyst seen within the pelvis. Suspected stone involving the left kidney measuring 4 mm. Presumed vascular calcifications left upper quadrant, unchanged. Stool and air is seen projecting over the right renal shadow limiting evaluation. The suspected 5 mm calculus seen on the prior KUB study is occult. No bowel obstruction or free air. Postsurgical sternotomy clips. Osseous structures demonstrate degenerative change with hardware L4-L5. XR/XR abdomen 1V IMPRESSION: SUSPECTED LEFT NEPHROLITHIASIS. PREVIOUSLY IDENTIFIED SUSPECTED STONE INVOLVING THE RIGHT KIDNEY IS OCCULT. Impression dictated by: Álvaro Montes Jr.OLuis Alberto02/05/2025 9:51 AM Dictation Location: [place] [address] Electronically authenticated by: [id number] Y Date: 02/05/2025 09:51
== END 2025-02-05 08:51 | disposition home or self-care (01) ==
LOC: RAD 08:52
PROVIDERS: PCP Internal Medicine; Visit Provider Nurse Practitioner
DX: N20.0 Calculus of kidney (principal)
CPT/HCPCS: 74018

== ENCOUNTER 2025-08-07 10:54 | Outpatient (OUT) | payer OTHER, SELFPAY ==
--- NOTE | 2025-08-07 10:56 | XR_ITS ---
The [address] [address] Patient Name: DEBBIE CURRY MRN: [id number] date: 1945 Sex: F Assigned Patient Location: Current Patient Location: [place] Accession/Order Number: [id number] Exam Date: 08/07/2025 11:05 Report Date: 08/07/2025 11:40 At the request of: RASHIDA ELDRIDGE MD Procedure: XR abdomen 1V SINGLE VIEW ABDOMEN COMPARISON: 02/05/2025 CLINICAL DATA: Left flank pain. History of kidney stones. Supine views of the abdomen and pelvis were obtained. There is air within the stomach. There is air and stool within the colon. There are no dilated small bowel loops. The kidneys are partially obscured. Vascular type calcifications are again seen at the left upper quadrant. There are also some calcifications which could be renal at the upper pole. These are unchanged. There are no suspect right renal stones. There are pelvic phleboliths. No soft tissue masses are seen. There is levoscoliotic curvature with postoperative and degenerative changes in spine. XR/XR abdomen 1V IMPRESSION: POSSIBLE LEFT NEPHROLITHIASIS, SIMILAR TO THE PRIOR. Impression dictated by: Nandini Wright M.D. 08/07/2025 11:40 AM Dictation Location: [place] [address] Electronically authenticated by: [id number] Y Date: 08/07/2025 11:40
--- NOTE | 2025-08-07 10:56 | US_ITS ---
The [address] [address] Patient Name: DEBBIE CURRY MRN: [id number] date: 1945 Sex: F Assigned Patient Location: [place] Current Patient Location: [place] Accession/Order Number: [id number] Exam Date: 08/07/2025 11:00 Report Date: 08/07/2025 11:43 At the request of: RASHIDA ELDRIDGE MD Procedure: US renal BI BILATERAL RENAL AND BLADDER ULTRASOUND CLINICAL HISTORY: Left flank pain. History of kidney stones. COMPARISON: Plain films 08/07/2025 Estimation of renal size is approximately 2.5 cm on the right and 10.5 cm on the left. Echogenic foci with twinkle artifact are seen at both kidneys suggesting potential stones. At the midpole on the right, it measures 5 mm. There are several areas on the left measuring up to 4 mm in size. No hydronephrosis is identified. A cyst is visualized at the superior pole the right measuring 18 x 17 x 22 mm. There is no perinephric fluid. The urinary bladder is poorly distended with a volume of 17 mL. This limits assessment. US/US renal BI IMPRESSION: NO OBSTRUCTIVE UROPATHY. SUSPECTED BILATERAL NEPHROLITHIASIS, GREATER ON THE LEFT. RIGHT RENAL CYST. Impression dictated by: Nandini Wright M.D. 08/07/2025 11:43 AM Dictation Location: [place] [address] Electronically authenticated by: [id number] Y Date: 08/07/2025 11:43
--- OUTSIDE RECORDS SUMMARY | 2025-08-07 11:03 | XMS_ITS | CCD ---
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 Attending Unavailable ÁNGELA JUAREZ Attending Unavailable Rashida ELDRIDGE Attending Unavailable Rashida ELDRIDGE Referring Unavailable ÁNGELA JUAREZ Attending Unavailable Mouchmeme, Mohamad A. Attending Unavailable Mouchli, Mohamad ALuis Alberto Referring Unavailable Mouchli, Mohamad ALuis Alberto Admitting Unavailable ÁNGELA JUAREZ Admitting Unavailable ÁNGELA JUAREZ Attending Unavailable Monancy, Mohamad A. Attending Unavailable Lisa Dumont Attending Unavailable Jared Hedrick MD Unavailable Jared Hedrick MD Primary Care Provider Karne HOLLAND, Naye Unavailable Mayuri Brown DO Unavailable [phone] Chente SILVER, Rashida R Unavailable Bacilio Mayen Admitting Unavailable Bacilio Mayen Attending Unavailable NKTEJAL-AMANKRA, HANNAH Attending Unavail able MD Mart Luna Attending Unavaila ble MD Mart Luna Admitting Unavaila ble COOK, Juan Alberto P Consulting Unavailable COOK, Juan Alberto P Consulting Unavailable COOK, Juan Alberto P Consulting Unavailable COOK, Juan Alberto P Consulting Unavailable COOK, Juan Alberto P Consulting Unavailable COOK, Juan Alberto P Consulting Unavailable COOK, Juan Alberto P Consulting Unavailable COOK, Juan Alberto P Consulting Unavailable COOK, Juan Alberto P Consulting Unavailable COOK, Juan Alberto P Consulting Unavailable COOK, Juan Alberto P Consulting Unavailable COOK, Juan Alberto P Consulting Unavailable COOK, Juan Alberto P Consulting Unavailable COOK, Juan Alberto P Consulting Unavailable Ofshabbir, Mart Canales Admitting Unavailable Mart Luna Attending Unavailable COOK, Juan Alberto P Consulting Unavailable COOK, Juan Alberto P Consulting Unavailable COOK, Juan Alberto P Consulting Unavailable COOK, Juan Alberto P Consulting Unavailable COOK, Juan Alberto P Consulting Unavailable COOK, Juan Alberto P Consulting Unavailable COOK, Juan Alberto P Consulting Unavailable COOK, Juan Alberto P Consulting Unavailable COOK, Juan Alberto P Consulting Unavailable COOK, Juan Alberto P Consulting Unavailable COOK, Juan Alberto P Consulting Unavailable COOK, Juan Alberto P Consulting Unavailable NKANSAH-AMANKRA, HANNAH Attending Unavail able NKANSCORTEZ-AMKACIERA, HANNAH Referring Unavail able ANA, HANNAH Admitting Unavail able MD Mart Luna Admitting Unavaila ble MD Mart Luna Attending Unavaila ble NKANSAH-AMANKRA, HANNAH Attending Unavail able NKANSAH-AMANKRA, HANNAH Admitting Unavail able Lisa Dumont Attending Unavailable Lili Prakash LPN Unavailable Hannah Chacon MD Unavailable Rashida Eldridge MD Unavailable [phone] Abbie Mayorga Attending Unavailable NKANSAH-AMANKRA, HANNAH Attending Unavail able Rashida ELDRIDGE Attending Unavailable Maria Esther Sharp Attending Unavailable NKANSAH-AMANKRA, HANNAH Admitting Unavail able NKANSAH-AMANKRA, HANNAH Attending Unavail able NKANSAH-AMANKRA, HANNAH Attending Unavail able NKANSAH-AMANKRA, HANNAH Referring Unavail able NKANSAH-AMANKRA, HANNAH Admitting Unavail able Juan Alberto SMITH Consulting Unavailable NKANSAH-AMANKRA, HANNAH Attending Unavail able NKANSAH-AMANKRA, HANNAH Attending Unavail able NKANSAH-AMANKRA, HANNAH Admitting Unavail able NKANSAH-AMANKRA, HANNAH Attending Unavail able NKANSAH-AMANKRA, HANNAH Referring Unavail able Lili Prakash LPN Unavailable JOSE LIAO Attending Unavailable JOSE LIAO Referring Unavailable JARED HEDRICK Attending Unavailable JARED HEDRICK Referring Unavailable MAYURI BROWN Attending Unavailable Allergies Allergy Classification Reported Allergen(s) Allergy Type Date of Onset Reaction(s) Facility (20 sources) Ciprofloxacin; Translations: [ciprofloxacin] Drug Allergy 04-07-20 15 Diarrhea, Unknown [facility] (2 sources) Clindamycin Drug Allergy 04-29-20 21 Diarrhea [facility] (20 sources) Codeine; Translations: [Codeine] Drug Allergy 04-07-20 15 Nausea Only [facility] (2 sources) levoFLOXacin Drug Allergy 05-24-20 22 Unknown Reaction [facility] (20 sources) Meperidine; Translations: [meperidine] Drug Allergy 04-07-20 15 Anxiety [facility] (20 sources) moxifloxacin; Translations: [moxifloxacin] Drug Allergy 04-07-20 15 Diarrhea, Unknown [facility] (20 sources) Penicillins; Translations: [Penicillins] Allergy to substance 07-19-20 12 Rash [facility] (20 sources) Phenazopyridine; Translations: [phenazopyridine] Drug Allergy 07-19-20 12 GI intolerance [facility] (20 sources) Promethazine; Translations: [promethazine] Drug Allergy 07-19-20 12 Itching, Other [facility] (2 sources) Scallop - dietary Allergy to substance 04-29-20 21 Edema [facility] (3 sources) Sulfonamides (Antibiotic); Translations: [SULFA (SULFONAMIDE ANTIBIOTICS)] Allergy to substance 04-29-20 21 Rash [facility] (20 sources) telithromycin; Translations: [telithromycin] Drug Allergy 04-07-20 15 Unknown Reaction, Unknown [facility] (20 sources) Tobramycin; Translations: [tobramycin] Drug Allergy 07-19-20 12 Hives [facility] (20 sources) traMADol; Translations: [tramadol] Drug Allergy 04-07-20 15 GI intolerance [facility] (3 sources) Iodinated Contrast Media; Translations: [IODINATED CONTRAST MEDIA] Propensity to adverse reactions 04-29-20 21 Flushing [facility] (2 sources) avalox Allergy to substance 05-24-20 22 Unknown Reaction [facility] (2 sources) phendzopyridine Allergy to substance 05-24-20 22 Unknown Reaction [facility] (2 sources) uricet Allergy to substance 05-24-20 22 Unknown Reaction [facility] (2 sources) Codeine Drug Allergy Unknown [employer] [facility] [employer] Other (2 sources) Sulfacetamide / Sulfur Drug Allergy Unknown [employer] [facility] [employer] Other (3 sources) Dye [facility] Green 3 Drug allergy 08-12-20 24 Unknown, Unknown Reaction [facility] (2 sources) Penicillian V Potassium Propensity to adverse reactions Unknown [employer] [facility] [employer] Other (2 sources) Dye [facility] Blue 1 Drug allergy Unknown [email or web address] Other (2 sources) Dye [facility] Yellow 6 Drug allergy Unknown [email or web address] Other (2 sources) Dye [facility] Red 40 (Allura Red) Drug allergy Unknown [email or web address] Other (1 source) Ciprofloxacin Drug Allergy 04-07-20 15 [facility] (11 sources) Meperidine; Translations: [Demerol] Drug Allergy 04-07-20 15 [facility] (1 source) moxifloxacin Drug Allergy 04-07-20 15 [facility] (1 source) potassium citrate Drug Allergy 04-07-20 15 [facility] (1 source) Protamines Drug Allergy 04-07-20 15 [facility] (20 sources) Shellfish; Translations: [shellfish] Drug allergy (disorder) 04-07-20 15 Unknown [facility] (1 source) Sulfonamides (Antibiotic) Drug allergy (disorder) 04-07-20 15 [facility] (11 sources) telithromycin; Translations: [Ketek] Drug Allergy 04-07-20 15 [facility] (20 sources) Nalbuphine; Translations: [nalbuphine] Drug Allergy 04-11-20 Rash [facility] (20 sources) potassium citrate; Translations: [potassium citrate] Drug Allergy 04-07-20 15 Unknown [facility] (20 sources) Protamine Sulfate (S[facility]IVING); Translations: [protamine] Drug Allergy 04-07-20 15 Unknown [facility] (2 sources) Shellfish; Translations: [shellfish] Propensity to adverse reactions to substance 04-07-20 Unknown [facility] (20 sources) Sulfonamides (Antibiotic); Translations: [sulfa drugs] Drug allergy Eruption of skin (disorder) [facility] (20 sources) iodinated radiocontrast dyes; Translations: [iodinated radiocontrast agents] Drug allergy Nausea [facility] (1 source) SHELLFISH CONTAINING PRODUCTS; Translations: [SHELLFISH CONTAINING PRODUCTS] Propensity to adverse reactions to drug (disorder) 04-07-20 [facility] Repository (10 sources) Phenazopyridine; Translations: [Pyridium] Drug Allergy [facility] Repository (10 sources) Promethazine; Translations: [Phenergan] Drug Allergy [facility] Repository (9 sources) Clarithromycin Propensity to adverse reactions 10-20-20 GI intolerance [facility] (9 sources) meloxicam Drug Allergy 04-03-20 GI intolerance [facility] (9 sources) metFORMIN Drug Allergy 06-05-20 23 GI intolerance [facility] (9 sources) Penicillin G Drug Allergy 04-03-20 23 Rash [facility] (9 sources) Shellfish Propensity to adverse reactions 04-07-20 15 Hives [facility] (9 sources) Sulfonamides (Antibiotic) Drug Allergy 04-11-20 23 Rash [facility] (1 source) Contrast media Allergy to substance 08-12-20 Unknown Reaction [facility] (1 source) Penicillin Drug Allergy 08-12-20 Unknown Reaction [facility] (1 source) Sulfacetamide Drug Allergy 08-12-20 Unknown Reaction [facility] (1 source) Sulfur Drug Allergy 08-12-20 Unknown Reaction [facility] (1 source) blue dye Allergy to substance 08-12-20 Unknown Reaction [facility] (1 source) yellow dye Allergy to substance 08-12-20 Unknown Reaction [facility] Medications Current Medications Medication Drug Class(es) Dates Sig (Normalized) Sig (Original) acetaminophen 325 mg oral tablet (18 sources) Start: 08-10-2024 take 2 tablets by mouth every eight hours as needed for pain acetaminophen 325 mg Tab 650 mg = 2 tab(s), Oral, q8hr, PRN Pain, Refills(s) 0 Start Date: 08/10/24 Status: Ordered Repeat number: 1 Start: 06-28-2018 take 1 tablet by [facility] every six hours Acetaminophen (Tylenol Extra Strength) 500 mg Tablet Active 500 MG PO Q6H June 28, 2018 12:00am ascorbic acid 113 mg / copper gluconate 0.4 mg / docosahexaenoic acid 87.5 mg / eicosapentaenoic acid 163 mg / lutein 2.5 mg / tocopherol acetate 100 unt / zeaxanthin 0.5 mg / zinc oxide 17.4 mg oral capsule (9 sources) Vitamin C Multiple Vitamin s-Minerals (PreserVision AREDS 2) capsule 1 capsule Active atropine sulfate 0.025 mg / diphenoxylate hydrochloride 2.5 mg oral tablet (9 sources) Anticholinergic, Cholinergic Muscarinic Antagonist, Antidiarrheal diphenoxylate- atropine (Lomotil) 2.5-0.025 MG tablet Take 1 tablet by mouth as needed in the morning and 1 tablet as needed at noon and 1 tablet as needed in the evening and 1 tablet as needed before bedtime for diarrhea. Active take 1 tablet by [facility] four times daily as needed for diarrhea diphenoxylate-atropine (Lomotil) 2.5-0.0 25 MG tablet Take 1 tablet by mouth 4 (four) times a day as needed for diarrhea. Active bifidobacterium infantis 4 mg oral capsule (7 sources) Start: 04-18-2024 take 1 capsule by mouth once daily Align 4 mg oral capsule 4 mg = 1 cap(s), Oral, Daily, # 28 cap(s), Refills(s) 4, Pharmacy: [facility]/pharmacy #[id number], 162, cm, 04/18/24 9:43:00 EDT, Height/Length Dosing, 66, kg, 04/18/24 9:43:00 EDT, Weight Dosing Start Date: 04/18/24 Status: Ordered Blood Glucose Monitoring Suppl (OneTouch Verio Flex System) w/Device kit (9 sources) Start: 01-20-2025 Blood Glucose Monitoring Suppl (OneTouch Verio Flex System) w/Device kit Indications: Type 2 diabetes mellitus with diabetic neuropathy, without long-term current use of insulin ([facility]) 1 Device Daily 1 kit 01/20/2025 Active Start: 01-20-2025 Blood Glucose Monitoring Suppl (OneTouch Verio Flex System) w/Device kit Indications: Type 2 diabetes mellitus with diabetic neuropathy, without long-term current use of insulin ([facility]) 1 Device Daily 1 kit 01/20/2025 Active Start: 10-19-2022 Blood Glucose Monitoring Suppl (OneTouch Verio Flex System) w/Device kit 10/19/2022 Active cefdinir 300 mg oral capsule (2 sources) Cephalosporin Antibacterial Start: 08-10-2024 End: 08-15-2024 take 1 capsule by mouth every twelve hours cefdinir 300 mg Cap 300 mg = 1 cap(s), Oral, q12hr, X 5 day(s), # 10 cap(s), Refills(s) 0, Pharmacy: [facility]/pharmacy #[id number], 165, cm, 08/09/24 8:35:00 EDT, Height/Length Dosing, 63.4, kg, 08/09/24 8:35:00 EDT, Weight Dosing Start Date: 08/10/24 Stop Date: 08/15/24 Status: Ordered cholecalciferol 0.05 mg oral capsule (8 sources) Vitamin D Start: 11-09-2018 take 1 capsule by mouth once daily Cholecalciferol (Vitamin D3) (Vitamin D3) 2,000 unit Capsule Active 2000 UNIT PO Daily November 09, 2018 1:00am End: 02-10-2025 take 1 capsule by mouth once daily cholecalciferol 125 MCG (5000 UT) capsule Take 1 capsule by mouth Daily 02/10/2025 Discontinued cholestyramine resin 4000 mg powder for oral suspension (6 sources) Bile Acid Sequestrant End: 02-10-2025 take 4 g by mouth three times daily at mealtime cholestyramine (Questran) 4 GM/DOSE powder Take by mouth 3 (three) times a day with meals 02/10/2025 Discontinued citalopram 20 mg oral tablet (20 sources) Serotonin Reuptake Inhibitor Start: 02-10-2025 take 1 tablet by mouth once daily citalopram (CeleXA) 20 MG tablet Indications: Generalized anxiety disorder Take 1 tablet (20 mg) by mouth Daily 90 tablet 2 02/10/2025 Active Start: 06-28-2018 End: 02-10-2025 take 10 mg by mouth once daily citalopram 10 mg, Oral, Daily, Refills(s) 0, Depression Start Date: 02/04/19 Status: Ordered Repeat number: 1 clobetasol propionate 0.0005 mg/mg topical ointment (16 sources) Corticosteroid Start: 12-12-2022 apply 30 g topically every twelve hours as needed for pain clobetasol propionate 0.05% top oint See Instructions, 30 gm, Refill(s) 2, Apply to affected area every 12 hours as needed for pain/discomfort., [id number], 165, cm, 12/12/22 13:46:00 EST, Height/Length Dosing, 70.4, kg, 12/12/22 13:46:00 EST, Weight Dosing Start Date: 12/12/22 Status: Ordered End: 02-10-2025 clobetasol (Temovate) 0.05 % cream 1 application every 12 (twelve) hours 02/10/2025 Discontinued colesevelam hydrochloride 625 mg oral tablet (4 sources) Bile Acid Sequestrant Start: 04-18-2024 take 3 tablets by mouth twice daily Welchol 625 mg Tab 1,875 mg = 3 tab(s), Oral, BID, # 180 tab(s), Refills(s) 3, Pharmacy: [facility]/pharmacy #[id number], 162, cm, 04/18/24 9:43:00 EDT, Height/Length Dosing, 66, kg, 04/18/24 9:43:00 EDT, Weight Dosing Start Date: 04/18/24 Status: Ordered cyclobenzaprine hydrochloride 10 mg oral tablet (2 sources) Muscle Relaxant take 0.5-1 tablets by mouth three times daily as needed Cyclobenzaprine HCl 10 MG TAKE 1/2-1 TABLET BY MOUTH 3 TIMES A DAY NEEDED Oral for 30 Active Colace (9 sources) Start: 08-09-2024 take 20 mg by mouth once daily Colace 20 mg, Oral, Daily, Refills(s) 0 Start Date: 08/09/24 Status: Ordered Start: 04-29-2021 take 1 capsule by [facility] twice daily Docusate Sodium (Colace) 100 mg capsule Active 100 MG PO Twice daily 60 April 29, 2021 12:00am doxycycline monohydrate 100 mg oral tablet (2 sources) Tetracycline-class Drug Start: 04-18-2024 doxycy montero monohydrate 100 mg oral tablet Refills(s) 0 Start Date: 04/18/24 Status: Ordered Start: 12-12-2022 take 1 capsule by mo [facility] once daily doxycycline hyclate 100 mg Cap 100 mg = 1 cap(s), Oral, Daily, Take 1 pill the day before the procedure and 1 pill after the procedure, # 2 cap(s), Refills(s) 0, Pharmacy: [id number], 165, cm, 12/12/22 13:46:00 EST, Height/Length Dosing, 70.4, kg, 12/12/22 13:46:00 EST, W... Start Date: 12/12/22 Status: Ordered empagliflozin 25 mg / linagliptin 5 mg oral tablet (3 sources) Dipeptidyl Peptidase 4 Inhibitor, Sodium-Glucose Cotransporter 2 Inhibitor Start: 01-03-2020 take 1 tablet by mouth once daily Empagliflozin-Linagliptin (Glyxambi) 25-5 mg Tablet Active 1 TAB PO Daily April 25, 2021 12:00am 12 hr fexofenadine hydrochloride 60 mg / pseudoephedrine hydrochloride 120 mg extended release oral tablet (2 sources) alpha-Adrenergic Agonist, Histamine-1 Receptor Antagonist Start: 06-28-2018 [...] day(s) Active glimepiride 4 mg oral tablet (13 sources) Sulfonylurea Start: 06-28-2018 take 1 tablet by mouth once daily glimepiride 4 mg Tab 4 mg = 1 tab(s), Oral, Daily, Blood glucose Start Date: 12/12/22 Status: Ordered take 2 tablets by [facility] every twenty-four hours Glimepiride 4 MG 2 tablets Orally Once a day Active Glyxamb1 25/5 mg 25/5 mg (2 sources) Glyxamb1 25/5 mg 25/5 mg 90 orally daily Active hydroCHLOROthiazide 25 mg oral tablet (20 sources) Thiazide Diuretic Start: 2017 End: 2023 take 1 tablet by mouth once daily hydroCHLOROthiazide (HYDRODiuril) 25 MG tablet Indications: Essential hypertension Take 1 tablet (25 mg) by mouth Daily 90 tablet 3 08/05/2024 Active levothyroxine sodium 0.088 mg oral tablet (20 sources) l-Thyroxine Start: 2022 End: 2023 take 1 tablet by mouth before mealtime levothyroxine (Levoxyl) 88 MCG tablet Indications: Acquired hypothyroidism Take 1 tablet (88 mcg) by mouth in the morning. Take before meals. 90 tablet 3 08/05/2024 Active Start: 02-04-2019 take 88 ug by mouth once daily levothyroxine 88 mcg, Oral, Daily, Refills(s) 0, Thyroid Start Date: 02/04/19 Status: Ordered Repeat number: 1 Start: 02-04-2019 take 88 ug by mouth once daily [...] 2018 4:52pm take 1 tablet by [facility] once daily in the morning Levothyroxine Sodium 100 MCG 1 tablet on an empty stomach in the morning Orally Once a day Active linaclotide 0.072 mg oral capsule (20 sources) Guanylate Cyclase-C Agonist Start: 11-28-2024 take 1 capsule by mouth once daily Linzess 72 mcg oral capsule 72 mcg = 1 cap(s), Oral, Daily, # 30 cap(s), Refills(s) 6, Pharmacy: [facility]/pharmacy #[id number], 165, cm, 09/30/24 10:01:00 EST, Height/Length Dosing, 63.4, kg, 09/30/24 10:01:00 EST, Weight Dosing Start Date: 11/28/24 Status: Ordered Quantity: 30.0 Unit: cap(s) Repeat number: 7 Start: 07-24-2024 take 1 capsule by mo uth before mealtime Linzess 145 MCG capsule Take 145 mcg by mouth in the morning. Take before meals. 07/24/2024 Active Start: 07-24-2024 take 1 capsule by mo uth once daily Linzess 145 mcg oral capsule 145 mcg = 1 cap(s), Oral, Daily, # 30 cap(s), Refills(s) 4, Pharmacy: [facility]/pharmacy #[id number], 165, cm, 07/24/24 12:20:00 EDT, Height/Length Dosing, 64, kg, 07/24/24 12:20:00 EDT, Weight Dosing Start Date: 07/24/24 Status: Ordered lubiprostone 0.008 mg oral capsule (1 source) Chloride Channel Activator Start: 05-05-2025 End: 08-03-2025 take 1 capsule by mouth twice daily Amitiza 8 mcg Cap 8 mcg = 1 cap(s), Oral, BID, X 90 day(s), # 180 cap(s), Refills(s) 0, Pharmacy: [facility], 165, cm, 05/05/25 12:18:00 EDT, Height/Length Dosing, 63, kg, 05/05/25 12:18:00 EDT, Weight Dosing Start Date: 05/05/25 Stop Date: 08/03/25 Status: Ordered Quantity: 180.0 Unit: cap(s) Repeat number: 1 Indications: Outlet dysfunction constipation; Magnesium (2 sources) take 2 tablets by mouth once daily Magnesium 200 MG 2 tablets with a meal Orally Once a day unsure of dose Active metFORMIN hydrochloride 500 mg oral tablet (2 sources) Biguanide Start: 04-29-2021 take 500 mg by mouth once daily Metformin Active 500 MG PO Daily 05 05April 29, 2021 12:00am mirtazapine 15 mg oral tablet (20 sources) Start: 06-28-2018 mirtazapine (Remeron) 15 MG tablet Indications: Primary insomnia TAKE 1 TABLET AT BEDTIME 90 tablet 3 04/10/2025 Active Multiple Vitamins-Minerals (multivitamin with iron-minerals) liquid (5 sources) Multiple Vitamins-Minerals (multivitamin with iron-minerals) liquid Take by mouth Daily Active nitrofurantoin, macrocrystals 25 mg / nitrofurantoin, monohydrate 75 mg oral capsule (3 sources) Nitrofuran Antibacterial Start: 01-15-2024 End: 01-20-2024 take 1 capsule by mouth twice daily Macrobid 100 mg Cap 100 mg = 1 cap(s), Oral, BID, X 5 day(s), # 10 cap(s), Refills(s) 0, Pharmacy: [facility]/pharmacy #[id number], 162, cm, 03/22/23 13:18:00 EDT, Height/Length Dosing, 68.6, kg, 03/22/23 13:18:00 EDT, Weight Dosing Start Date: 01/15/24 Stop Date: 01/20/24 Status: Ordered Start: 04-25-2021 take 1 capsule by [facility] every twelve hours at mealtime Nitrofurantoin Monohyd/M-Cryst [...] Daily, # 30 cap(s), Refills(s) 1, Pharmacy: [facility]/pharmacy #[id number] Start Date: 02/05/19 Status: Ordered ondansetron 4 mg oral tablet (2 sources) Serotonin-3 Receptor Antagonist Start: 04-30-2021 take 1 tablet by mouth every eight hours Ondansetron Hcl (Zofran) 4 mg tablet Active 4 MG PO Q8H 10 02April 30, 2021 12:00am oxybutynin chloride 5 mg oral tablet (2 sources) Cholinergic Muscarinic Antagonist oxyBUTYnin Chloride 5 MG as directed Orally unsure of dose Active pantoprazole 40 mg delayed release oral tablet (20 sources) Proton Pump Inhibitor Start: 12-30-2024 take 1 tablet by mouth once daily Pantoprazole [address] Tab 40 mg = 1 tab(s), Oral, Daily, # 90 tab(s), Refills(s) 3, Pharmacy: [facility], 165, cm, 09/30/24 10:01:00 EST, Height/Length Dosing, 63.4, kg, 09/30/24 10:01:00 EST, Weight Dosing Start Date: 12/30/24 Status: Ordered Quantity: 90.0 Unit: tab(s) Repeat number: 4 Start: 01-17-2024 End: 10-13-2024 take 1 tablet by mouth once daily Pantoprazole [address] Tab 40 mg = 1 tab(s), Oral, Daily, X 90 day(s), # 90 tab(s), Refills(s) 2, Pharmacy: [facility], 162.5, cm, 01/17/24 14:37:00 EDT, Height/Length Dosing, 67, kg, 01/17/24 14:37:00 EDT, Weight Dosing Start Date: 01/17/24 Stop Date: 10/13/24 Status: Ordered pioglitazone 15 mg oral tablet (9 sources) Peroxisome Proliferator Receptor alpha Agonist, Peroxisome Proliferator Receptor gamma Agonist, Thiazolidinedione Start: 03-22-2023 take 1 tablet by mouth once daily pioglitazone 15 mg Tab 15 mg = 1 tab(s), Oral, Daily, Refills(s) 0, Blood glucose Start Date: 03/22/23 Status: Ordered POLYETHYLENE GLYCOL 3350 (7 sources) Osmotic Laxative Start: 08-09-2024 take 17 g by mouth once daily polyethylene glycol 3350 17 gm, Oral, Daily, Refill(s) 0 Start Date: 08/09/24 Status: Ordered PreserVision AREDS (20 sources) Start: 12-12-2022 PreserVision AREDS See Instructions, Refill(s) 0, Prophylaxis Start Date: 12/12/22 Status: Ordered Repeat number: 1 Start: 12-12-2022 PreserVision A REDS See Instructions, Refill(s) 0, Prophylaxis Start Date: 12/12/22 Status: Ordered Start: 12-12-2022 PreserVision A REDS Refill(s) 0 Start Date: 12/12/22 Status: Ordered PreserVision ARE DS as directed Orally Active Probiotic Product (ALIGN PO) (9 sources) Probiotic Produc t (ALIGN PO) Take by mouth Active Psyllium Husk (Metamucil) 0.4 gram capsule (2 sources) Start: 04-29-2021 Psyllium Husk (Metamucil) 0.4 gram capsule Active 0.4 GM PO Daily April 29, 2021 12:00am rivaroxaban 10 mg oral tablet (20 sources) Factor Xa Inhibitor Start: 08-14-2023 take 1 tablet by mouth once daily Xarelto 20 20 one tablet PO Daily for 90 days Jul, Active Start: 04-20-2022 take 1 tablet by [facility] once daily Rivaroxaban (Xarelto) 10 mg tablet Active 10 MG PO Daily August 12, 2024 12:00am Start: 01-03-2020 End: 02-10-2025 take 1 tablet by mouth once daily Xarelto 20 mg oral tablet 20 mg = 1 tab(s), Oral, Daily, Refills(s) 0, Blood Thinner Start Date: 01/03/20 Status: Ordered Repeat number: 1 Start: 12-13-2019 End: 04-25-2021 take 1 tablet by mouth twice daily at mealtime Rivaroxaban (Xarelto) 15 mg tablet Discontinued 15 MG PO Twice daily 42 December 13, 2019 1:00am April 25, 2021 7:55am must administer with a meal/food rosuvastatin calcium 10 mg oral tablet (5 sources) HMG-CoA Reductase Inhibitor Start: 02-10-2025 take 1 tablet by mouth once daily rosuvastatin (Crestor) 10 MG tablet Indications: Mixed hyperlipidemia Take 1 tablet (10 mg) by mouth Daily 90 tablet 2 02/10/2025 Active semaglutide 14 mg oral tablet (20 sources) Start: 06-11-2024 Rybelsus 7 mg oral tablet See Instructions, Refills(s) 0 Start Date: 06/11/24 Status: Ordered Start: 04-29-2024 take 1 tablet by [facility] th before mealtime semaglutide (Rybelsus) 14 MG tablet Indications: Type 2 diabetes mellitus with diabetic neuropathy, without long-term current use of insulin (HCC) Take 1 tablet (14 mg) by mouth in the morning. Take before meals. 90 tablet 3 02/21/2025 Active Start: 01-17-2024 Rybelsus 7 mg oral tablet Refills(s) 0, Blood glucose Start Date: 01/17/24 Status: Ordered Rybelsus 7 MG 1 tablet at least 30 minutes before first food, beverage or other oral medicine of the day Orally Once a day Active simvastatin 20 mg oral tablet (20 sources) HMG-CoA Reductase Inhibitor Start: 06-28-2018 End: 02-10-2025 simvastatin See Instructions, 20 mg Oral Monday, Monday, Monday, Refills(s) 0, High cholesterol Start Date: 02/04/19 Status: Ordered Repeat number: 1 solifenacin succinate 5 mg oral tablet (10 sources) Cholinergic Muscarinic Antagonist Start: 01-10-2023 take 1 tablet by mouth once daily Vesicare 5 mg Tab 5 mg = 1 tab(s), Oral, Daily, # 90 tab(s), Refills(s) 3, Pharmacy: [facility] #[id number], 165, cm, 12/12/22 13:46:00 EST, Height/Length Dosing, 70.4, kg, 12/12/22 13:46:00 EST, Weight Dosing Start Date: 01/10/23 Status: Ordered Start: 12-14-2022 take 1 tablet by [facility] th every other day Vesicare 5 mg Tab 5 mg = 1 tab(s), Oral, Every other day, # 30 tab(s), Refills(s) 11, Pharmacy: [facility] #[id number], 165, cm, 12/12/22 13:46:00 EST, Height/Length Dosing, 70.4, kg, 12/12/22 13:46:00 EST, Weight Dosing Start Date: 12/14/22 Status: Ordered tamsulosin hydrochloride 0.4 mg oral capsule (7 sources) alpha-Adrenergic Kianna Start: 08-10-2024 End: 08-17-2024 take 1 capsule by mouth once daily Flomax 0.4 mg Cap 0.4 mg = 1 cap(s), Oral, Daily, # 10 cap(s), Refills(s) 0, [id number], 165, cm, 08/15/24 9:05:00 EDT, Height/Length Dosing, 63.4, kg, 08/15/24 9:05:00 EDT, Weight Dosing Start Date: 08/15/24 Status: Ordered traMADol hydrochloride 50 mg oral tablet (4 sources) Opioid Agonist Start: 08-15-2024 take 1 tablet by mouth every twelve hours as needed for pain traMADOL 50 mg Tab 50 mg = 1 tab(s), Oral, q12hr, PRN for pain, # 7 tab(s), Refills(s) 0, [id number], 165, cm, 08/15/24 9:05:00 EDT, Height/Length Dosing, 63.4, kg, 08/15/24 9:05:00 EDT, Weight Dosing Start Date: 08/15/24 Status: Ordered triamcinolone acetonide 1 mg/ml topical cream (9 sources) Corticosteroid Start: 06-30-2023 triamcinolone (Kenalog) 0.1 % cream Apply 1 application topically as needed in the morning and 1 application as needed in the evening. 06/30/2023 Active trospium chloride 20 mg oral tablet (7 sources) Cholinergic Muscarinic Antagonist Start: 06-11-2024 End: 06-06-2025 take 20 mg by mouth once Trospium Active 20 MG PO Once August 12, 2024 12:00am Tylenol 8 Hour 650 MG (2 sources) take 1 tablet by mouth every eight hours as needed Tylenol 8 Hour 650 MG 1 tablet as needed Orally every 8 hrs Active Vitamin D3 (19 sources) Start: 01-03-2020 take 50 ug by mouth once daily Vitamin D3 50 mcg, Oral, Daily, Refills(s) 0, Prophylaxis Start Date: 01/03/20 Status: Ordered Repeat number: 1 Start: 01-03-2020 take 50 ug by mouth once daily Vitamin D3 50 mcg, Oral, Daily, Refills(s) 0, Prophylaxis Start Date: 01/03/20 Status: Ordered Start: 01-03-2020 Vitamin D3 Ref ills(s) 0 Start Date: 01/03/20 Status: Ordered Vitamin D3 [id number] UNIT/GM (2 sources) Vitamin D3 46591 00 UNIT/GM as directed Active Completed/Discontinued Medications Medication Drug Class(es) Dates Sig (Normalized) Sig (Original) ascorbic acid 113 mg / beta carotene 7160 mg / cuprous oxide 0.4 mg / dl-alpha tocopheryl acetate 100 unt / zinc oxide 17.4 mg oral tablet (2 sources) Vitamin C Start: 06-28-2018 End: 04-25-2021 take 2 tablets by mouth twice daily Vitamins A,C,L-Sbfw-Orfstl (Preservision Areds) 7,[id number] [id number] Tablet Discontinued 2 TAB PO Twice daily June 28, 2018 12:00am April 25, 2021 7:55am dicyclomine hydrochloride 20 mg oral tablet (4 sources) Anticholinergic Start: 04-25-2021 End: 08-12-2024 take 20 mg by mouth four times daily Dicyclomine Discontinued 20 MG PO Four times daily April 25, 2021 12:00am August 12, 2024 11:23am Start: 06-28-2018 End: 11-09-2018 take 10 mg by mouth four times daily Dicyclomine Discontinued 10 MG PO Four times daily June 28, 2018 12:00am November 09, 2018 4:51pm SITagliptin 100 mg oral tablet (2 sources) Dipeptidyl Peptidase 4 Inhibitor Start: 06-28-2018 End: 04-25-2021 take 1 tablet by mouth once daily Sitagliptin Phosphate (Januvia) 100 mg Tablet Discontinued 100 MG PO Daily June 28, 2018 12:00am April 25, 2021 7:55am Problems Active Problems Problem Classification Problem Date Documented Date Episodic/Chronic Abdominal pain (20 sources) Abdominal pain; Translations: [Unspecified abdominal pain] Onset: 4 04-25-2021 Episodic Administrative/social admission (4 sources) Patient encounter status; Translations: [Other specified counseling] 02-07-2025 Episodic Anxiety disorders (13 sources) Generalized anxiety disorder; Translations: [Generalized anxiety disorder] Onset: 3 04-09-2023 Chronic Aortic; peripheral; and visceral artery aneurysms (9 sources) Aneurysm of splenic artery; Translations: [Aneurysm of other specified arteries] Onset: 3 04-09-2023 Chronic Biliary tract disease (2 sources) Postcholecystectomy syndrome; 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] Onset: 5 Episodic Cataract (14 sources) Age-related nuclear cataract, left eye; Translations: [After-cataract of bilateral eyes] Onset: 2 Chronic Diabetes mellitus with complications (14 sources) Neuropathy due to type 2 diabetes mellitus; Translations: [Type 2 diabetes mellitus with diabetic neuropathy, unspecified] Onset: 3 07-07-2023 Chronic Diabetes mellitus without complication (20 sources) Glycosuria; Translations: [Glycosuria] 04-29-2021 Episodic Disorders of lipid metabolism (20 sources) Pure hypercholesterolemia, unspecified; Translations: [Hyperlipidemia] Onset: 2 12-25-2019 Chronic Esophageal disorders (20 sources) Mejia's esophagus; 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] Onset: 3 Resolved: 3 Chronic Essential hypertension (20 sources) Essential (primary) hypertension; Translations: [Hypertensive disorder] Onset: 2 12-25-2019 Chronic Fluid and electrolyte disorders (4 sources) Absolute hypovolemia; Translations: [Hypovolemia] 04-29-2021 Episodic Genitourinary symptoms and ill-defined conditions (20 sources) Incontinence; Translations: [Incontinence without sensory awareness] Onset: 3 01-03-2020 Chronic Genitourinary symptoms and ill-defined conditions (20 sources) Delay when starting to pass urine; Translations: [Increased frequency of urination] Onset: 4 01-03-2020 Episodic Immunizations and screening for infectious disease (2 sources) Needs influenza immunization; Translations: [Encounter for immunization] 08-05-2024 Episodic Intestinal obstruction without hernia (2 sources) Fecal impaction; Translations: [Fecal impaction] 08-05-2024 Episodic Miscellaneous mental health disorders (11 sources) Primary insomnia; Translations: [Primary insomnia] Onset: 3 07-07-2023 Chronic Nausea and vomiting (1 source) Nausea and vomiting; Translations: [Nausea with vomiting, unspecified] Onset: 4 Episodic Noninfectious gastroenteritis (19 sources) Noninfectious enteritis; Translations: [Noninfective gastroenteritis and colitis, unspecified] Onset: 4 Episodic Nutritional deficiencies (11 sources) Vitamin D deficiency; Translations: [Vitamin D deficiency, unspecified] Onset: 3 04-09-2023 Chronic Osteoarthritis (19 sources) Osteoarthritis 12-25-2019 Chronic Other aftercare (1 source) Long-term current use of anticoagulant; Translations: [predatory animal 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 (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) use of anticoagulants] Onset: 4 Episodic Other aftercare (1 source) Long-term current use of drug therapy; Translations: [Other half-way (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] Onset: 4 Episodic Other and unspecified benign neoplasm (1 source) Lipoma of intra-abdominal organs; Translations: [Benign lipomatous neoplasm of intra-abdominal organs] Onset: 4 Episodic Other and unspecified benign neoplasm (15 sources) Lipoma of stomach 04-18-2024 Episodic Other diseases of bladder and urethra (20 sources) Urethral stricture; Translations: [Other urethral stricture, female] Onset: 4 12-25-2019 Episodic Other diseases of kidney and ureters (4 sources) Urinary tract obstruction; Translations: [Hydronephrosis with renal and ureteral calculous obstruction] Onset: 4 Episodic Other disorders of stomach and duodenum (2 sources) Disease of stomach and duodenum, unspecified; Translations: [Disease of stomach and duodenum, unspecified] Onset: 4 Episodic Other eye disorders (10 sources) Dry eyes; Translations: [Dry eye syndrome of bilateral lacrimal glands] Onset: 3 08-28-2023 Episodic Other gastrointestinal disorders (9 sources) Irritable bowel syndrome characterized by constipation; Translations: [Irritable bowel syndrome with constipation] Onset: 3 07-07-2023 Chronic Other gastrointestinal disorders (2 sources) Constipation by outlet obstruction; Translations: [Outlet dysfunction constipation] Onset: 4 Episodic Other gastrointestinal disorders (2 sources) Diarrhea; Translations: [Diarrhea, unspecified] 02-10-2025 Episodic Other liver diseases (9 sources) Fatty (change of) liver, not elsewhere classified; Translations: [Other chronic nonalcoholic liver disease] Onset: 3 04-09-2023 Chronic Other non-traumatic joint disorders (2 sources) Pain in right shoulder; Translations: [Pain in right shoulder] Onset: 3 Episodic Other non-traumatic joint disorders (2 sources) Pain in left shoulder; Translations: [Pain in left shoulder] Onset: 3 Episodic Other nutritional; endocrine; and metabolic disorders (1 source) Abnormal weight loss; Translations: [Abnormal weight loss] Onset: 4 Episodic Other nutritional; endocrine; and metabolic disorders (17 sources) Unintentional weight loss 01-17-2024 Episodic Other screening for suspected conditions (not mental disorders or infectious disease) (4 sources) Increased ketone bodies; Translations: [Other specified abnormal findings of blood chemistry] 04-29-2021 Episodic Prolapse of female genital organs (3 sources) Cystocele; Translations: [Cystocele, unspecified] Onset: 4 Chronic Residual codes; unclassified (1 source) Acquired absence of organ; Translations: [Acquired absence of other specified parts of digestive tract] Onset: 4 Episodic Retinal detachments; defects; vascular occlusion; and retinopathy (10 sources) Nonexudative age-related macular degeneration; Translations: [Nonexudative age-related macular degeneration, left eye, intermediate dry stage] Onset: 3 08-28-2023 Chronic Substance-related disorders (13 sources) Nicotine dependence; Translations: [Nicotine dependence, unspecified, uncomplicated] Onset: 4 Chronic Comment on above: Added secondary to d ocumentation in Social History. Thyroid disorders (20 sources) Hypothyroidism; Translations: [Hypothyroidism, unspecified] Onset: 3 12-25-2019 Chronic Unclassified (19 sources) Drug therapy finding 01-03-2020 Unclassified (17 sources) Finding of sensation of abdomen 01-17-2024 Unclassified (9 sources) Obstructive hydronephrosis 08-08-2024 Urinary tract infections (19 sources) Chronic cystitis 12-25-2019 Chronic Past or Other Problems Problem Classification Problem Date Documented Date Episodic/Chronic Calculus of urinary tract (20 sources) Calculus of kidney; Translations: [Kidney stone] Onset: 3 Resolved: 4 Episodic Coagulation and hemorrhagic disorders (9 sources) Hypercoagulability state; Translations: [Other primary thrombophilia] Onset: 3 Resolved: 3 07-07-2023 Chronic Diabetes mellitus without complication (20 sources) Diabetes mellitus; Translations: [Type 2 diabetes mellitus without complications] Onset: 2 Resolved: 4 04-29-2021 Chronic Nutritional deficiencies (13 sources) Vitamin B12 deficiency (non anemic); Translations: [Deficiency of other specified B group vitamins] Onset: 3 04-09-2023 Episodic Other aftercare (1 source) [facility] (current) use of anticoagulants; Translations: [ASSISTED CURRNT USE ANTICOAGULANTS] Onset: 2 Episodic Other aftercare (1 source) Other intermediate teacher (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; Translations: [OTH ASSISTED CURRENT DRUG THERAPY] Onset: 2 Episodic Other and ill-defined heart disease (9 sources) Diastolic dysfunction; Translations: [Other ill-defined heart diseases] Onset: 3 Resolved: 3 07-07-2023 Chronic Other and unspecified benign neoplasm (20 sources) History of polyp of colon; Translations: [Personal history of colonic polyps] Onset: 4 Episodic Other and unspecified benign neoplasm (9 sources) Polyp of colon; Translations: [Polyp of colon] Onset: 3 Resolved: 4 03-13-2024 Episodic Other diseases of kidney and ureters (20 sources) Cyst of kidney; Translations: [Cyst of kidney, acquired] Onset: 3 01-03-2020 Episodic Other gastrointestinal disorders (9 sources) Irritable bowel syndrome; Translations: [Irritable bowel syndrome without diarrhea] Onset: 5 Resolved: 4 01-10-2024 Chronic Other gastrointestinal disorders (20 sources) Constipation; Translations: [Constipation, unspecified] Onset: 3 Resolved: 3 04-29-2021 Episodic Other gastrointestinal disorders (20 sources) Dysphagia; Translations: [Dysphagia, unspecified] Onset: 3 Resolved: 3 Episodic Other gastrointestinal disorders (20 sources) Incontinence of feces; Translations: [Full incontinence of feces] Onset: 3 Resolved: 3 Episodic Other nervous system disorders (9 sources) Mortons neuroma of right foot; Translations: [Lesion of plantar nerve, right lower limb] Onset: 3 Resolved: 3 07-07-2023 Chronic Other nervous system disorders (9 sources) H/O: migraine; Translations: [Personal history of other diseases of the nervous system and sense organs] Onset: 4 04-25-2024 Episodic Other upper respiratory disease (9 sources) Allergic rhinitis; Translations: [Allergic rhinitis, unspecified] Onset: 3 Resolved: 3 07-07-2023 Chronic Other upper respiratory disease (4 sources) Epistaxis; Translations: [EPISTAXIS] Onset: 2 Episodic Phlebitis; thrombophlebitis and thromboembolism (20 sources) Personal history of other venous thrombosis and embolism; Translations: [H/O: thrombosis] Onset: 2 Resolved: 4 03-22-2023 Episodic Pulmonary heart disease (20 sources) Pulmonary thromboembolism; Translations: [Other pulmonary embolism without acute cor pulmonale] Onset: 0 12-13-2019 Episodic Residual codes; unclassified (1 source) Acquired absence of other specified parts of digestive tract; Translations: [ACQ ABSENCE OTH PART DIGESTV TRACT] Onset: 2 Episodic Residual codes; unclassified (9 sources) History of hysterectomy for benign disease; Translations: [Acquired absence of both cervix and uterus] Onset: 3 Resolved: 3 07-07-2023 Episodic Urinary tract infections (20 sources) Acute urinary tract infection; Translations: [Urinary tract infection, site not specified] Onset: 4 04-25-2021 Episodic Results Test Name Value Interpretation Reference Range Facility Optical coherence tomography study reporton 07-04-2025 Critical access hospital Radiology Study observation (narrative) [facility] Ambulatory Visit Summaryon 0 05-05-2025 Ambulatory Visit Summary Ambulatory Visi t Summary CHELSEA CURRY :1945 Visit Date:05/05/2025 Ambulatory Visit Instructions Your Diagnosis Constipation by outlet dysfunction Right upper quadrant pain Stool incontinence Post-cholecystectomy syndrome Your Care Team Attending Physician - Mukesh SILVER, Abbie Canseco Primary Care Physician - JARED HEDRICK MD This Is Your Medications List lubiprostone (Amitiza 8 mcg Cap) Contact prescribing physician if questions or concerns acetaminophen (acetaminophen 325 mg Tab) cholecalciferol (Vitamin D3) citalopram hydrochlorothiazide (hydrochlorothiazide 25 mg Tab) levothyroxine linaclotide (Linzess 72 mcg oral capsule) mirtazapine multivitamin with minerals (PreserVision AREDS) pantoprazole (Pantoprazole [address] Tab) rivaroxaban (Xarelto 20 mg oral tablet) semaglutide (Rybelsus 14 mg oral tablet) simvastatin Procedures Performed Cystoscopy (08/15/2024), Cystoscopy (07/30/2024), MULTISECTION LIMITED^WO CONTRAST:FIND:PT:ABDOMEN: DOC:CT (07/30/2024), Esophagogastroduodenoscop y (02/23/2024), Colonoscopy (01/30/2024), Esophagogastroduodenoscop y (01/30/2024), Colonoscopy (01/13/2017), [...] postoperative education. Discharge Vitals Heart Rate (Peripheral) 61 Respiratory Rate 16 Blood Pressure 133/69 Height 165 cm Height 65 in Weight 63 kg Weight 138.891 lb BMI 23.14 What to do next Scheduled Follow-Up Appointments Monday 10:30 AM EDT With: CHENTE SILVER, Rashida Lujan Where: [facility] [address] [place] [address]- Medications What How Much When Why Instructions New lubiprostone (Amitiza 8 mcg Cap) 1 Capsules By Mouth 2 times a day Constipation by outlet dysfunction Pickup at [facility]/pharmacy #[id number] Unchanged acetaminophen (acetaminophen 325 mg Tab) 2 Tablets By Mouth Every 8 hours as needed for Pain Contact prescribing physician if questions or concerns Unchanged cholecalciferol (Vitamin D3) 50 Microgram By Mouth Every day Contact prescribing physician if questions or concerns Unchanged citalopram 10 Milligram By Mouth Every day Contact prescribing physician if questions or concerns Unchanged hydrochlorothiazide (hydrochlorothiazide 25 mg Tab) 1 Tablets By Mouth Every day May resume on Contact prescribing physician if questions or concerns Unchanged levothyroxine 88 Microgram By Mouth Every day Contact prescribing physician if questions or concerns Unchanged linaclotide (Linzess 72 mcg oral capsule) 1 Capsules By Mouth Every day Contact prescribing physician [...] prescribing physician if questions or concerns Unchanged rivaroxaban (Xarelto 20 mg oral tablet) 1 Tablets By Mouth Every day Contact prescribing physician if questions or concerns Unchanged semaglutide (Rybelsus 14 mg oral tablet) 14 Milligram By Mouth Every day Contact prescribing physician if questions or concerns Unchanged simvastatin See instructions 20 mg Oral Monday, Monday, Monday Contact prescribing physician if questions or concerns Pharmacy Information [facility]/pharmacy #[id number]: [address], [place] [phone] Allergies Demerol (hyper) Ketek (Unknown) Nubain (rash) (more content not included)... 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 dysfunction Right upper quadrant pain Stool incontinence Post-cholecystectomy syndrome Your Care Team Attending Physician - Mukesh SILVER, Abbie Canseco Primary Care Physician - JARED HEDRICK MD This Is Your Medications List lubiprostone (Amitiza 8 mcg Cap) Contact prescribing physician if questions or concerns acetaminophen (acetaminophen 325 mg Tab) cholecalciferol (Vitamin D3) citalopram hydrochlorothiazide (hydrochlorothiazide 25 mg Tab) levothyroxine linaclotide (Linzess 72 mcg oral capsule) mirtazapine multivitamin with minerals (PreserVision AREDS) pantoprazole (Pantoprazole [address] Tab) rivaroxaban (Xarelto 20 mg oral tablet) semaglutide (Rybelsus 14 mg oral tablet) simvastatin Procedures Performed Cystoscopy (08/15/2024), Cystoscopy (07/30/2024), MULTISECTION LIMITED^WO CONTRAST:FIND:PT:ABDOMEN: DOC:CT (07/30/2024), Esophagogastroduodenoscop y (02/23/2024), Colonoscopy (01/30/2024), Esophagogastroduodenoscop y (01/30/2024), Colonoscopy (01/13/2017), [...] postoperative education. Discharge Vitals Heart Rate (Peripheral) 61 Respiratory Rate 16 Blood Pressure 133/69 Height 165 cm Height 65 in Weight 63 kg Weight 138.891 lb BMI 23.14 What to do next Scheduled Follow-Up Appointments Monday 10:30 AM EDT With: CHENTE SILVER, Rashida Lujan Where: [facility] [address] [place] [address]- Medications What How Much When Why Instructions New lubiprostone (Amitiza 8 mcg Cap) 1 Capsules By Mouth 2 times a day Constipation by outlet dysfunction Pickup at [facility]/pharmacy #[id number] Unchanged acetaminophen (acetaminophen 325 mg Tab) 2 Tablets By Mouth Every 8 hours as needed for Pain Contact prescribing physician if questions or concerns Unchanged cholecalciferol (Vitamin D3) 50 Microgram By Mouth Every day Contact prescribing physician if questions or concerns Unchanged citalopram 10 Milligram By Mouth Every day Contact prescribing physician if questions or concerns Unchanged hydrochlorothiazide (hydrochlorothiazide 25 mg Tab) 1 Tablets By Mouth Every day May resume on Contact prescribing physician if questions or concerns Unchanged levothyroxine 88 Microgram By Mouth Every day Contact prescribing physician if questions or concerns Unchanged linaclotide (Linzess 72 mcg oral capsule) 1 Capsules By Mouth Every day Contact prescribing physician [...] prescribing physician if questions or concerns Unchanged rivaroxaban (Xarelto 20 mg oral tablet) 1 Tablets By Mouth Every day Contact prescribing physician if questions or concerns Unchanged semaglutide (Rybelsus 14 mg oral tablet) 14 Milligram By Mouth Every day Contact prescribing physician if questions or concerns Unchanged simvastatin See instructions 20 mg Oral Monday, Monday, Monday Contact prescribing physician if questions or concerns Pharmacy Information [facility]/pharmacy #[id number]: [address], [place] [phone] Allergies Demerol (hyper) Ketek (Unknown) Nubain (rash) (more content not included)... [facility] Gastroenterology Office/Clin ic Noteon 05-05-2025 Gastroenterology Office/Clinic Note Gastroenterology Office/Clinic Note Chief Complaint fecal urgency HPI Staff EST, 79 year old female who presents today for a sick call for complaints of alternates between diarrhea and constipation, severe urgency, abolutely no warning. it all depends on the day, some days up to 5-6 up to 20 times. Blood Thinners- Xarelto Denies GLP-1 Last office visit w/ Dr Mayorga History of Present Illness pt with possible stool impaction was very bad recently tried to disimpact herself half mucous and half stool every bowel movement PT not pushing hard some tenderness in the rectum and abdomen taking miralax once a day Assessment/Plan 1. 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 Mejia's esophagus (K22.70: Mejia's esophagus without dysplasia) 3. History of colon polyps (Z86.010: Personal history of colonic polyps) 4. 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 Abdominal tenderness (R10.819: Abdominal tenderness, unspecified site) Advised to take MiraLAX more frequently and take stool softeners Advised to continue to use squatty potty and massage the colon Will prescribe Linzess 145 mcg to use if MiraLAX fails Stop WelChol CT abd/pelv w/o contrast 06/20/24 IMPRESSION: No urinary tract lesion identified. Bilateral nonobstructing renal calculi. Medullary nephrocalcinosis. Hepatic steatosis. EUS Results: Dr Ring: 02/23/2024 A. Duodenum, biopsy: - duodenal mucosa with no significant histologic abnormality. B. Stomach, submucosal nodule, endoscopic mucosal resection: - submucosal lipoma. - no evidence of dysplasia. Result comments: Gastric lesion. Colonoscopy w/ Dr Mayorga 01/30/2024 Findings Sessile polyp measuring 5 mm in the descending colon status post resection using cold snare Sessile polyp measuring 5 to 6 mm in the ascending colon status post resection using cold snare Nonbleeding AVM in the right colon (ascending colon)-no treatment needed Random colon polyps obtained Internal hemorrhoids Normal TI EGD w/ Dr Mayorga 01/30/24 Findings Z-line was irregular at 37 cm [...] status post biopsies Pathology: A: DUODENAL BIOPSY: ??? DUODENAL MUCOSA WITHIN NORMAL LIMITS. B: ESOPHAGEAL BIOPSY: ??? REACTIVE GASTROESOPHAGEAL JUNCTION WITH MODERATE CHRONIC ACTIVE INFLAMMATION. ??? NO INTESTINAL METAPLASIA IDENTIFIED. C: GASTRIC BIOPSY: ??? ANTRAL MUCOSA WITH MODERATE CHRONIC ACTIVE GASTRITIS AND REGENERATIVE CHANGES. ??? GASTRIC BODY MUCOSA WITH MILD CHRONIC INFLAMMATION. ??? NO INTESTINAL METAPLASIA IDENTIFIED. ??? NO H. PYLORI MICROORGANISMS IDENTIFIED WITH IMMUNOSTAIN. D: DESCENDING COLON POLYP, POLYPECTOMY ??? COLONIC MUCOSA WITH HYPERPLASTIC CHANGES. E: ASCENDING COLON POLYP, POLYPECTOMY: ??? COLON MUCOSA WITH ADENOMATOUS CHANGES. F: RANDOM COLON BIOPSY: ??? COLONIC MUCOSA WITH LYMPHOID AGGREGATES. History of Present Illness I have reviewed HPI staff note, most recent labs and imaging, I agree with the above documentation with the following additions/exceptions : PT still on Linzess 72 mcg daily hard to control the bowels few accidents Review of Systems PHQ Score Initial Depression Screen Score: 0 SCORE All systems reviewed, negative except as mentioned above Physical Exam Vitals & Measurements HR: 61(Peripheral) RR: 16 BP: 133/69 HT: 165 cm HT: 65 in WT: 138.891 lb WT: 63 kg BMI: 23.14 General: alert, no acute distress HEENT: atraumatic normocephalic Cardiovascular: regular rate and rhythm, normal peripheral perfusion Respiratory: Lungs CTA, respirations non labored Extremities: no deformity, no trauma Abdomen: Benign, soft, tender nondistended Assessment/Plan 1. Constipation by outlet dysfunction (K59.02: Outlet dysfunction constipation) Ordered: linaclotide, 145 mcg = 1 cap(s), Oral, Daily, # 30 cap(s), Refills(s) 4, Pharmacy: [facility]/pharmacy #[id number], 165, cm, 07/24/24 12:20:00 EDT, Height/Length Dosing, 64, kg, 09/25/24 12:20:00 EDT, Weight Dosing lubiprostone, 8 mcg = 1 cap(s), Oral, BID, # 60 tab(s), Refills(s) 0, Pharmacy: [facility]/pharmacy #[id number], 165, cm, 05/05/25 12:18:00 EDT, Height/Length Dosing, 63, kg, 05/05/25 12:18:00 EDT, Weight Dosing Current tobacco non-user 1036F Most recent diastolic blood pressure <80 mm Hg 3078F Systolic BP 130-139 mm Hg (Most Recent) 3075F 2. Right upper quadrant pain (R10.11: Right upper quadrant pain) 3. Stool incontinence (R15.9: Full incon (more content not included)... [facility] Comment on above: Result Comment: Elec tronically Signed By: Mukesh SILVER, Abbie Leon.br\Date and Time Signed: 05/05/25 12:47 EDT BI MAMMOGRAM SCREENING TOMOS YNTHESIS BILATERALon 04-11-2025 BI MAMMOGRAM SCREENING TOMOSYNTHESIS BILATERAL This is a summary report. The complete report is available in the patient's medical record. If you cannot access the medical record, please contact the sending organization for a detailed fax or copy. Examination: BI MAMMOGRAM SCREENING TOMOSYNTHESIS BILATERAL Clinical History: screening Technique: Screening digital mammography study of both breasts was performed with 2-D and 3-D tomosynthesis imaging. Study was compared to the prior exam dated 02/03/2023. Findings: There is no evidence of interval dominant spiculated mass, grouped microcalcifications, or skin thickening which would be suggestive of malignancy. Mild scattered benign-appearing calcifications are noted bilaterally. Axillary lymph nodes including partially visualized lymph nodes are noted bilaterally and appear grossly unremarkable. IMPRESSION: Impression: No specific evidence of malignancy seen in either breast. BIRADS 2 - Benign Findings DENSITY: There are scattered areas of fibroglandular density. FOLLOW-UP: Routine Screening Mammogram ELECTRONICALLY SIGNED BY: Khris Chew M.D. Normal Not Available Pancreatic elastase, fecalon 03-12-2025 Elastase.pancreatic (Stl) [Mass/Mass] 714 - PINF [facility] Comment on above: Severe Pancreatic In sufficiency: <100 Moderate Pancreatic Insufficiency: 100 - 200 Normal: >200 Performed at: 01 - [address] [id number] [employer] Driver Operator: Virginia Chen MD, Phone: [phone] [facility] Ambulatory Visit Summaryon 0 02-06-2025 Ambulatory Visit Summary Ambulatory Visi t Summary CHELSEA CURRY :1945 Visit Date:02/06/2025 Ambulatory Visit Instructions Your Diagnosis Kidney stones Gross hematuria Mixed stress and urge incontinence Other urethral stricture, female Female bladder prolapse Fecal incontinence Your Care Team Attending Physician - Jem CHRISTOPHER, Maria Esther Amor Primary Care Physician - JARED HEDRICK MD This Is Your Medications List Contact prescribing physician if questions or concerns acetaminophen (acetaminophen 325 mg Tab) acetaminophen (acetaminophen 325 mg Tab) cholecalciferol (Vitamin D3) citalopram docusate (Colace) hydrochlorothiazide (hydrochlorothiazide 25 mg Tab) levothyroxine linaclotide (Linzess 145 mcg oral capsule) linaclotide (Linzess 72 mcg oral capsule) mirtazapine multivitamin with minerals (PreserVision AREDS) pantoprazole (Pantoprazole [address] Tab) polyethylene glycol 3350 rivaroxaban (Xarelto 20 mg oral tablet) semaglutide (Rybelsus 14 mg oral tablet) simvastatin Procedures Performed Cystoscopy (08/15/2024), Cystoscopy (07/30/2024), MULTISECTION LIMITED^WO CONTRAST:FIND:PT:ABDOMEN: DOC:CT (07/30/2024), Esophagogastroduodenoscop y (02/23/2024), Colonoscopy (01/30/2024), Esophagogastroduodenoscop y (01/30/2024), Colonoscopy (01/13/2017), [...] postoperative education. Discharge Vitals Heart Rate (Peripheral) 79 Respiratory Rate 16 Blood Pressure 134/74 Height 165 cm Height 65 in Weight 63.5 kg Weight 139.993 lb BMI 23.32 What to do next Scheduled Follow-Up Appointments Monday 10:30 AM EDT With: CHENTE SILVER, Rashida Lujan Where: [facility] [address] [address]- Medications What How Much When Why Instructions Unchanged acetaminophen (acetaminophen 325 mg Tab) 2 Tablets By Mouth Every 8 hours Contact prescribing physician if questions or concerns Unchanged acetaminophen (acetaminophen 325 mg Tab) 2 Tablets By Mouth Every 8 hours as needed for Pain Contact prescribing physician if questions or concerns Unchanged cholecalciferol (Vitamin D3) 50 Microgram By Mouth Every day Contact prescribing physician if questions or concerns Unchanged citalopram 10 Milligram By Mouth Every day Contact prescribing physician if questions or concerns Unchanged docusate (Colace) 20 Milligram By Mouth Every day Contact prescribing physician if questions or concerns Unchanged hydrochlorothiazide (hydrochlorothiazide 25 mg Tab) 1 Tablets By Mouth Every day May resume on Contact prescribing physician if questions or concerns Unchanged levothyroxine 88 Microgram By Mouth Every day Contact prescribing physician if questions or concerns Unchanged linaclotide (Linzess 145 mcg oral capsule) 1 Capsules By Mouth Every day Anticoagulated Mejia's esophagus History of colon polyps Constipation by outlet dysfunction Contact prescribing physician if questions or concerns Unchanged linaclotide (Linzess 72 mcg oral capsule) 1 Capsules By Mouth Every day Contact prescribing physician [...] prescribing physician if questions or concerns Unchanged polyethylene glycol 3350 17 Gram By Mouth Every day Contact prescribing (more content not included)... [facility] Urology Office/Clinic Noteon 02-06-2025 Urology Office/Clinic Note Urology Office/Clinic Note Chief Complaint possible kidney stone HPI Staff 79 yr old female here with possible kidney stone Dx: Ureteral stone with hydronephrosis, Gross hematuria, Kidney stones, mixed stress and urge incontinence, other urethral stricture, female, proteinuria. Cystoscopy, left ureteroscopy, left laser lithotripsy, left ureteral stent placement done 08/15/24 Denies dysuria, no visible blood. Pt states she has been having left sided flank pain for the past week and a half. History of Present Illness Staff HPI reviewed and agree. Review of Systems PHQ Score Initial Depression Screen Score: 0 SCORE no fever, chills, malaise, myalgia. no rash/lesions. no chest pain, palpitations, or SOB. no abdominal pain, nausea, vomiting. no unilateral calf swelling, redness, pain Physical Exam Vitals & Measurements HR: 79(Peripheral) RR: 16 BP: 134/74 HT: 165 cm HT: 65 in WT: 63.5 kg WT: 139.993 lb BMI: 23.32 General: nontoxic, well-nourished, appears stated age Mouth: moist mucosa Lungs: normal respiratory effort Cardio: regular rate, good distal perfusion Abdomen: nondistended, no suprapubic distention or tenderness, no CVA tenderness Neurologic: Grossly normal Skin: No rashes or suspicious lesions Assessment/Plan PRW pt. 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 1. Left flank pain (R10.9: Unspecified abdominal pain) 02/05/25 KUB - suspected stone involving L kidney measuring 4mm (unable to view image) Pt called into office with c/o L flank pain. Pt reports that she has taken Tylenol ES and it takes the edge off. Discussed KUB results with patient. Advised her that typically stones inside the kidney do not cause pain. Due to stone being measured at 4mm, discussed 95% chance stone would pass on its own should it decide to move out of the kidney. Advised pt to drastically increase her fluid intake and taking Flomax BID in case there is a small stone being missed on KUB. Discussed completing CT w/o con with patient to assess further. Pt would like to hold off on further imaging at this time. Pt denies hematuria, N/V, fevers, or inability to urinate. Advised patient to call our office in a week with an update and if no changes, pt agreeable to imaging at that time and F/U with Dr. Eldridge. Pt knows to present to ER for fever, N/V, chills, hematuria or inability to urinate. -Drastically increase fluid intake -Flomax 0.4mg PO BID PRN -Pt to call our office with update in 1 week -If no changes, will order CT w/o con and F/U with Dr. Eldridge -ER for fever, chills, N/V, hematuria, inability to urinate -If pain resolves, F/U 6 month with PRW with KUB/JOSE DE JESUS Ordered: E&M of New Patient Moderate 45-59 Min 60954 2. Kidney stones (N20.0: Calculus of kidney) KUB 01/11/24 - 5 mm stone over R mid body. Several small stones projecting over LSP. KUB 06/10/24 [facility] - dictation still pending. Personal review: appears unchanged from prior KUB in December. CT AP wo con 07/30/24 - Approximately 7 x 4 x 3 mm proximal left ureteral calculus approximately 19 cm superior to the left UVJ with mild left hydronephrosis. A few other small bilateral intrarenal calculi, measuring up to approximately 6 to 7 mm. S/p cysto w/ L stent placement 07/30/24. Pt presented to [facility] 08/09/24 with newly onset right-sided flank pain with N/V. CT AP wo con 08/09/24 [facility] - 4-5 mm calculus within the right distal ureter at the ureterovesicular junction, with associated upstream mild to moderate right hydroureteronephrosis and right perinephric stranding, findings new from 07/30/2024, with this calculus previously present within the right kidney on the recent prior study. Interval placement of left ureteral stent, with grossly appropriate positioning and overall similar to the recent fluoroscopic images. Possible small calculus adjacent to the distal stent. Interval improved left hydronephrosis. Labs - Cr 0.9, eGFR 64 UA demonstrated evidence of UTI with positive leuks and WBCs. Neg UCx. ER physician called and spoke with Dr. Smith who was siphon operator. Dr. Smith recommended admission for lithotripsy. S/p cysto, L URS, L laser litho, L stent placement 08/15/24. Findings ~4 mm mid ureteral stone lasered into small submillimeter fragments, intrarenal calculi less than 2 submillimeter fragment. Stone analysis ~100% ca ox monohydrate. Renal US 09/23/24 [facility] - Right kidney shows upper pole simple cyst measuring 2.4 x 2.1 x 2.3 cm, and mid pole cyst 1.5 x 0.9 x 1.5 cm. Left kidney shows simple pole cyst 1.0 x 1.1 x 1.2 cm. No hydro. KUB 09/23/24 [facility] - 8 x 3.4 cm calcification overlying left first lumbar transverse process, in region of proximal left ureter. Upon personal review, calcification appears vascular in concordants to prior CT. 02/05/25 KUB - suspected stone involving L kidney measuring 4mm (unable to view image) UA today small leuks only -See #1 -Continue HCTZ 25 mg qd through PCP Ordered: E&M of New Patient Moderate 45-59 Min 04309 Ur (more content not included)... [facility] Comment on above: Result Comment: Elec tronically Signed By: Jem CHRISTOPHER, Maria Esther Amor\.br\Date and Time Signed: 02/06/25 14:18 EDT XR ABDOMEN 1Von 02-05-[address] [address] XRay Report Signed Patient: CHELSEA CURRY MR#: [id number] : 1945 Acct:[id number] Age/Sex: 79 / F ADM Date: 02/05/25 Loc: RAD Attending Dr: Maria Esther Sharp NP Ordering Physician: Maria Esther Sharp NP Date of Service: 02/05/25 Procedure(s): XR abdomen 1V Accession Number(s): [id number] cc: Maria Esther Sharp GEAR NICKER; JARED HEDRICK [address] [address] Patient Name: CHELSEA CURRY MRN: [facility]:[id number] date: 1945 Sex: F Assigned Patient Location: [facility] Current Patient Location: [facility] Accession/Order Number: [id number] Exam Date: 02/05/2025 09:48 Report Date: 02/05/2025 09:51 At the request of: MARIA ESTHER SHARP NP Procedure: XR abdomen 1V KUB: CLINICAL INFORMATION: Stone follow-up COMPARISON: KUB 06/10/2024 FINDINGS: Liver cyst seen within the pelvis. Suspected stone involving the left kidney measuring 4 mm. Presumed vascular calcifications left upper quadrant, unchanged. Stool and air is seen projecting over the right renal shadow limiting evaluation. The suspected 5 mm calculus seen on the prior KUB study is occult. No bowel obstruction or free air. Postsurgical sternotomy clips. Osseous structures demonstrate degenerative change with hardware L4-L5. XR/XR abdomen 1V IMPRESSION: SUSPECTED LEFT NEPHROLITHIASIS. PREVIOUSLY IDENTIFIED SUSPECTED STONE INVOLVING THE RIGHT KIDNEY IS OCCULT. Impression dictated by: Owen Reardon Jr., D.O.02/05/2025 9:51 AM Dictation Location: [place] [address] Electronically authenticated by: [id number] Y Date: 02/05/2025 09:51 Dictated By: Owen Reardon M.D. Signed By: 02/05/2553 DD/ 0 TD/TT: Senior Buyer: [facility] Radiology, Radiologsaundra ballard MD - 02/05/[address] [address] XRay Report Signed Patient: CHELSEA CURRY MR#: [id number] : 1945 Acct:[id number] Age/Sex: 79 / F ADM Date: 02/05/25 Loc: RAD Attending Dr: Maria Esther Sharp NP Ordering Physician: Maria Esther Sharp NP Date of Service: 02/05/25 Procedure(s): XR abdomen 1V Accession Number(s): [id number] cc: Maria Esther Sharp GEAR NICKER; JARED HEDRICK [address] [address] Patient Name: CHELSEA CURRY MRN: [facility]:[id number] date: 1945 Sex: F Assigned Patient Location: [facility] Current Patient Location: [facility] Accession/Order Number: [id number] Exam Date: 02/05/2025 09:48 Report Date: 02/05/2025 09:51 At the request of: MARIA ESTHER SHARP NP Procedure: XR abdomen 1V KUB: CLINICAL INFORMATION: Stone follow-up COMPARISON: KUB 06/10/2024 FINDINGS: Liver cyst seen within the pelvis. Suspected stone involving the left kidney measuring 4 mm. Presumed vascular calcifications left upper quadrant, unchanged. Stool and air is seen projecting over the right renal shadow limiting evaluation. The suspected 5 mm calculus seen on the prior KUB study is occult. No bowel obstruction or free air. Postsurgical sternotomy clips. Osseous structures demonstrate degenerative change with hardware L4-L5. XR/XR abdomen 1V IMPRESSION: SUSPECTED LEFT NEPHROLITHIASIS. PREVIOUSLY IDENTIFIED SUSPECTED STONE INVOLVING THE RIGHT KIDNEY IS OCCULT. Impression dictated by: Owen Reardon Jr., D.O.02/05/2025 9:51 AM Dictation Location: [place] [address] Electronically authenticated by: [id number] Y Date: 02/05/2025 09:51 Dictated By: Owen Reardon M.D. Signed By: 02/05/2553 DD/ 0 TD/TT: Senior Buyer: [facility] [employer] Radiology Study observation (narrative) [facility] XR ABDOMEN 1VOrdered By: Kevin iologrenae Radiology on 02-05-2025 [facility] [employer] Work Phone: Ambulatory Visit Summaryon 1 12-01-2023 Ambulatory Visit Summary Ambulatory Visi t Summary CHELSEA CURRY :1945 Visit Date:09/30/2024 Ambulatory Visit Instructions Your Diagnosis Ureteral stone with hydronephrosis Kidney stones Gross hematuria Mixed stress and urge incontinence Other urethral stricture, female Female bladder prolapse Fecal incontinence Your Care Team Attending Physician - ANA SILVER, HANNAH Primary Care Physician - JARED HEDRICK MD This Is Your Medications List Contact prescribing physician if questions or concerns acetaminophen (acetaminophen 325 mg Tab) acetaminophen (acetaminophen 325 mg Tab) cholecalciferol (Vitamin D3) citalopram docusate (Colace) hydrochlorothiazide (hydrochlorothiazide 25 mg Tab) levothyroxine linaclotide (Linzess 145 mcg oral capsule) mirtazapine multivitamin with minerals (PreserVision AREDS) pantoprazole (Pantoprazole [address] Tab) polyethylene glycol 3350 rivaroxaban (Xarelto 20 mg oral tablet) semaglutide (Rybelsus 14 mg oral tablet) simvastatin Procedures Performed Cystoscopy (08/15/2024), Cystoscopy (07/30/2024), MULTISECTION LIMITED^WO CONTRAST:FIND:PT:ABDOMEN: DOC:CT (07/30/2024), Esophagogastroduodenoscop y (02/23/2024), Colonoscopy (01/30/2024), Esophagogastroduodenoscop y (01/30/2024), Colonoscopy (01/13/2017), [...] (tonsillectomy and adenoidectomy) postoperative education. Discharge Vitals Height 165 cm Height 65 in Weight 63.4 kg Weight 139.773 lb BMI 23.29 What to do next Scheduled Follow-Up Appointments Monday 11:20 AM EST With: HANNAH CHACON MD Where: [facility] [address], [address] [place] [address]- You Need to Schedule the Following Appointments Follow Up with HANNAH CHACON MD, URL When: Where: Medications What How Much When Why Instructions Unchanged acetaminophen (acetaminophen 325 mg Tab) 2 Tablets By Mouth Every 8 hours Contact prescribing physician if questions or concerns Unchanged acetaminophen (acetaminophen 325 mg Tab) 2 Tablets By Mouth Every 8 hours as needed for Pain Contact prescribing physician if questions or concerns Unchanged cholecalciferol (Vitamin D3) 50 Microgram By Mouth Every day Contact prescribing physician if questions or concerns Unchanged citalopram 10 Milligram By Mouth Every day Contact prescribing physician if questions or concerns Unchanged docusate (Colace) 20 Milligram By Mouth Every day Contact prescribing physician if questions or concerns Unchanged hydrochlorothiazide (hydrochlorothiazide 25 mg Tab) 1 Tablets By Mouth Every day May resume on Contact prescribing physician if questions or concerns Unchanged levothyroxine 88 Microgram By Mouth Every day Contact prescribing physician if questions or concerns Unchanged linaclotide (Linzess 145 mcg oral capsule) 1 Capsules By Mouth Every day Anticoagulated Mejia's esophagus History of colon polyps Constipation by outlet dysfunction Contact prescribing physician if questions or concerns [...] prescribing physician if questions or concerns Unchanged polyethylene glycol 3350 17 Gram By Mouth Every day Contact prescribing physician if questions or concerns Unchanged rivaroxaban (X (more content not included)... [facility] Urology Office/Clinic Noteon 09-30-2024 Urology Office/Clinic Note Urology Office/Clinic Note Chief Complaint follow up HPI Staff 79 yr old female here for f/u from stent removal. String stent removed - 08/20/24 Dx: Ureteral stone with hydronephrosis, Gross hematuria, Kidney stones, mixed stress and urge incontinence, other urethral stricture, female, proteinuria. KUB & JOSE DE JESUS done - 09/23/24 Patient denies any gross hematuria or dysuria. Intermittent low back pain. Mild stress and urge incontinence, wears liners changes as needed History of Present Illness Tests reviewed: reviewed UA, UCx, labs, ER records, CT, KUB, JOSE DE JESUS, stone analysis. I have reviewed the previous health record information and history for this patient from Dr. Sykes I have reviewed and verified the staff HPI to be accurate for this encounter. There have been no associated fever, chills, flank pain, or blood in the urine. Denies any urinary infections since last encounter. Review of Systems PHQ Score Initial Depression Screen Score: 0 SCORE ROS - Provider Constitutional: denies weight loss, denies hot flashes. Eyes: denies eye problems. Gastrointestinal: denies nausea, denies vomiting. Cardiovascular: denies chest pain or angina. Integumentary: no dryness Musculoskeletal: denies musculoskeletal symptoms. ENMT: denies otolaryngeal symptoms. Respiratory: no shortness of breath. Heme/Lymph: denies easy bleeding tendency, denies easy bruising tendency. Psychiatric: no confusion, no anxiety. Genitourinary: See HPI. Physical Exam Vitals & Measurements HT: 65 in HT: 165 cm WT: 63.4 kg WT: 139.773 lb BMI: 23.29 General Appearance: alert , no acute distress, well nourished, well developed female. Assessment/Plan Dr. Eldridge pt. Presents for follow up to recent lithotripsy. Portions of this record may have been created with voice recognition artificial intelligence software, specifically Druidly, Active Scaler and or Cocodrilo Dog. Substitutions may have occurred due to the inherent limitations of voice recognition and artificial intelligence software. 1. Ureteral stone with hydronephrosis (N13.2: Hydronephrosis with renal and ureteral calculous obstruction) Pt presented to [facility] 07/30/24 with L sided flank pain. Neg urine culture. Labs Cr 1.2, eGFR 45 CT AP wo con 07/30/24 - Approximately 7 x 4 x 3 mm proximal left ureteral calculus approximately 19 cm superior to the left UVJ with mild left hydronephrosis. S/p cysto w/ L stent placement 07/30/24. Takes multivitamin that contains calcium. Pt presented to [facility] 08/09/24 with newly onset right-sided flank pain with N/V. CT AP wo con 08/09/24 [facility] - 4-5 mm calculus within the right distal ureter at the ureterovesicular junction, with associated upstream mild to moderate right hydroureteronephrosis and right perinephric stranding, findings new from 07/30/2024, with this calculus previously present within the right kidney on the recent prior study. Interval placement of left ureteral stent, with grossly appropriate positioning and overall similar to the recent fluoroscopic images. Possible small calculus adjacent to the distal stent. Interval improved left hydronephrosis. Labs - Cr 0.9, eGFR 64 UA demonstrates evidence of UTI with positive leuks and WBCs. Neg UCx. ER physician called and spoke with Dr. Smith who was siphon operator. Dr. Smith recommended admission for lithotripsy. S/p cysto, L URS, L laser litho, L stent placement 08/15/24. Findings ~4 mm mid ureteral stone lasered into small submillimeter fragments, intrarenal calculi less than 2 submillimeter fragment. Stone analysis ~100% ca ox monohydrate. Renal US 09/23/24 [facility] - Right kidney shows upper pole simple cyst measuring 2.4 x 2.1 x 2.3 cm, and mid pole cyst 1.5 x 0.9 x 1.5 cm. Left kidney shows simple pole cyst 1.0 x 1.1 x 1.2 cm. No hydro. KUB 09/23/24 [facility] - 8 x 3.4 cm calcification overlying left first lumbar transverse process, in region of proximal left ureter. Upon personal review, calcification appears vascular in concordants to prior CT. -Fluids and dietary modifications 2. Kidney stones (N20.0: Calculus of kidney) KUB 08/31/21 - small stable bilateral renal stones. KUB 12/12/21 [facility] - no new stones. KUB 01/11/24 - 5 mm stone over R mid body. Several small stones projecting over LSP. KUB 06/10/24 [facility] - dictation still pending. Personal review: appears unchanged from prior KUB in December. CT AP wo con 07/30/24 - A few other small bilateral intrarenal calculi, measuring up to approximately [address] AP wo con 08/09/24 [facility] - Few additional bilateral renal calculi with the largest on the left measuring around 4 mm. No suspicious renal lesions. Simple appearing cysts and peripelvic cysts, unchanged. Renal US 09/23/24 [facility] - neg for nephrolithiasis. KUB 09/23/24 [facility] - neg for stones. Taking HCTZ 25 mg qd through PCP. See #1. 3. Gross hematuria (R31.0: Gross hematuria) S/p Cysto/UD 01/10/23 by [facility] - Severe bladder trabeculations, diffuse diverticuli, no aristides (more content not included)... [facility] Comment on above: Result Comment: Elec tronically Signed By: HANNAH CHACON MD\.br\Date and Time Signed: 09/30/24 10:28 EST\.br\Electronically Co-Signed By: Sandra Mcdonald\.br\Date and Time Co-Signed: 09/30/24 10:20 EST US Renalon 09-24-2024 US Renal Exam Date/Time: 09/23/2024 09:41 EST Reason for Exam: left ureteral stone;Other (please specify) Report IMPRESSION: Bilateral simple cysts. CLINICAL HISTORY: left ureteral stone. COMPARISON: NONE. Findings: Right kidney measures 9.8 x 4.8 x 5.1 cm. Left kidney measures 9.5 x 5.0 x 5.2 cm. Both kidneys normal in size, shape, echogenicity, color flow. Right kidney shows upper pole simple cyst measuring 2.4 x 2.1 x 2.3 cm, and mid pole cyst 1.5 x 0.9 x 1.5 cm. Left kidney shows simple pole cyst 1.0 x 1.1 x 1.2 cm. No calculi, hydronephrosis, masses, cortical thinning bilaterally. Ordering Provider: HANNAH CHACON FINAL REPORT Dictated: 09/24/2024 1:36 pm Devang Ramirez MD Signed (Electronic Signature): 09/24/2024 1:36 pm Signed by: Devang Ramirez MD Transcribed by: WERNER Technologist: JOAN Linares [facility] XR Abdomen 1 Viewon 09-24-20 24 XR Abdomen 1 View Exam Date/Time: 09/23/2024 09:42 EST Reason for Exam: left ureteral stone;Other (please specify) Report IMPRESSION: PROBABLE LEFT URETERAL CALCULUS DISCUSSED. CLINICAL HISTORY: left ureteral stone COMPARISON: CT abdomen pelvis, August 09, 2024. FINDINGS: Gas and stool in colon. No focal or diffuse small bowel dilatation. No mass effect. 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 No renal calculi are identified. 8 x 3.4 cm calcification overlying left first lumbar transverse process, in region of proximal left ureter. Phleboliths unchanged in pelvic inlet. Multiple surgical clips, gallbladder fossa. Bilateral posteriorly placed pedicle screws, L4 and L5, secured by vertically oriented rods and a horizontal bracket. Ordering Provider: HANNAH CHACON FINAL REPORT Dictated: 09/24/2024 1:41 pm Devang Ramirez MD Signed (Electronic Signature): 09/24/2024 1:41 pm Signed by: Devang Ramirez MD Transcribed by: WERNER Technologist: DONELL Technical Comments Radiation Dose: Ka,r in mGy = na DAP = na [facility] Calculus Analysison 08-19-20 Calcium oxalate monohydrate (Stone) [Mass fraction] 100 % Invalid Interpretation Code [facility] Comment on above: Performed By: #### 1 [id number] #### [facility] [address] [place] [address] Color (Stone) Brown Invalid Interpretation Code [facility] Comment on above: Performed By: #### 1 [id number] #### [facility] [address] [place] [address] Composition Comment Invalid Interpretation Code [facility] Comment on above: Result Comment: Perc entage (Represents the % composition) Performed By: #### 1 [id number] #### [facility] [address] [place] [address] Disclaimer: Comment Invalid Interpretation Code [facility] Comment on above: Result Comment: This test was developed and its performance characteristics determined by [facility]. It has not been cleared or approved by the Food and Drug Administration. Performed at: [address] [id number] PhD Ana M Purcell Performed By: #### 1 [id number] #### [facility] [address] [place] [address] Laboratory comment Stan (Report) Comment Invalid Interpretation Code [facility] Comment on above: Result Comment: Phys ician questions regarding Calculi Analysis contact [facility] at: [phone]. Performed By: #### 1 [id number] #### [facility] [address] [place] [address] Please Note: Comment Invalid Interpretation Code [facility] Comment on above: Result Comment: Calc deepali report will follow via computer, mail or contract administration coordinator delivery. Performed By: #### 1 [id number] #### [facility] [address] [place] [address] Size (Stone) [Entitic vol] 6x4 Invalid Interpretation Code [facility] Comment on above: Result Comment: Sing le piece received. Performed By: #### 1 [id number] #### [facility] [address] [place] [address] Specimen source subject Nom Comment Invalid Interpretation Code [facility] Comment on above: Result Comment: Not provided Performed By: #### 1 [id number] #### [facility] [address] [place] [address] Stone Photo Comment Invalid Interpretation Code [facility] Comment on above: Result Comment: Phot ograph will follow under a separate cover Performed By: #### 1 [id number] #### [facility] [address] [place] [address] Weight (Stone) 70 mg Invalid Interpretation Code [facility] Comment on above: Performed By: #### 1 [id number] #### [facility] [address] [place] [address] Main OR Intraoperative Recor don 08-16-2024 Main OR Intraoperative Record Main OR Intraoperative Record IntraOp Document Type FT Summary Primary Physician: HANNAH CHACON MD Finalized Date/Time: 08/16/24 11:59:43 Pt. Name: PATRICIO CHELSEA Jamey Castillo/Sex: 1945 Female Med Rec #: [id number] Physician: HANNAH CHACON MD Financial #: [id number] Pt. Type: A Room/Bed: Admit/Disch: 08/15/24 08:14:52 - 08/15/24 13:10:00 Institution: Case Times FT Entry 1 Patient Times In Room 08/15/24 10:06:00 Out Room 08/15/24 11:20:00 Procedure Times Start 08/15/24 10:20:00 Stop 08/15/24 11:13:00 Anesthesia Times Start 08/15/24 10:06:00 Stop 08/15/24 11:20:00 Last Modified By: Dontrell López Ii 08/15/24 11:26:50 General Comments: 08/16/24 Chart opened to review and send charges LRoth CSFA Case Attendance FT Entry 1 Entry 2 Entry 3 Case Attendee Niko Apple MD, Dea MARCIAL, Ashanti YOUNG Role Performed Anesthesiologist Surgeon - Primary Scrub - Primary Blood Splatter Analyst Time In 08/15/24 10:06:00 08/15/24 10:06:00 08/15/24 10:06:00 Time Out 08/15/24 11:10:00 08/15/24 11:20:00 08/15/24 11:20:00 Procedure CYSTOSCOPY RETROGRADE CYSTOSCOPY RETROGRADE CYSTOSCOPY RETROGRADE STENT INSERTION(Left) STENT INSERTION(Left) STENT INSERTION(Left) Comments DR. BRANDON MOSS BLEACHER Last Modified By: Dontrell López Ii, Alfons Ii Tommy Cuevasons Ii F 08/15/24 11:26:52 08/15/24 11:26:52 08/15/24 11:26:52 Entry 4 Entry 5 Entry 6 Case Attendee Dontrell López Ii, Bryce Funni IMAGING ACCOUNT MANAGER, Ramila Prajapati Role Performed Dining Room Manager - Primary Oyster Farmer IMAGING ACCOUNT MANAGER Time In 08/15/24 10:06:00 08/15/24 10:06:00 08/15/24 11:09:00 Time Out 08/15/24 11:20:00 08/15/24 11:20:00 08/15/24 11:20:00 Procedure CYSTOSCOPY RETROGRADE CYSTOSCOPY RETROGRADE CYSTOSCOPY RETROGRADE STENT INSERTION(Left) STENT INSERTION(Left) STENT INSERTION(Left) Comments anesthesia relief Last Modified By: Dontrell López Ii Tommy Cuevasons Ii F Maribel Alfons Ii F 08/15/24 11:26:52 08/15/24 11:26:52 08/15/24 11:26:52 General Comments: MARIN CHAVEZ FROM [employer] IS IN ATTENDANCE. /MICHELL Perioperative Protocols FT Pre-Care Text: Implements protective measures prior to operative or invasive procedure, confirms identity before the operative or invasive procedure, verifies operative procedure, surgical site, and laterality Entry 1 Procedure(s) CYSTOSCOPY RETROGRADE Patient Identity Birthday, ID Band STENT INSERTION(Left) Verified (select at Check, Patient least 2): Participation Consents / H and P Anesthesia Consent, Operative Site Present Verified H&P, Surgery/Procedure Marking Verified Consent Surgical Site Yes Laterality Verified Yes Verified Procedure Verified Yes Correct Patient Yes Position Verified Availability Equipment, Implant, Prep Dry No Verified (If Medication, X-ray Applicable) PreOp Antibiotic Yes Time Out Niko Apple, Given Participants ANA SILVER, Dea YOUNG CST, Maribel Mathias Alfons Ii F, Joshua Martin Time Out Complete 08/15/24 10:19:00 Outcomes Met? Yes Last Modified By: Dontrell López Ii 08/15/24 10:31:52 Post-Care Text: The patient is free from signs and symptoms of injury caused by extraneous objects Allergy Information FT Pre-Care Text: Verifies allergies Entry 1 Allergies Reviewed? Yes Allergies Reviewed Self/Patient With Outcomes Met? Yes Last Modified By: Dontrell López Ii 08/15/24 10:31:46 Post-Care Text: The patient received appropriate medication(s) safely administered during the perioperative period Surgical Procedures FT Entry 1 Entry 2 Procedure Description Procedure CYSTOSCOPY RETROGRADE EXTRACORPOREAL SHOCK STENT INSERTION WAVE LITHOTRIPSY Modifiers Left Left Surgeon Description CYSTOSCOPY, LEFT CYSTOSCOPY, LEFT URETEROSCOPY, LASER, URETEROSCOPY, LASER, LEFT STENT PLACEMENT LEFT STENT PLACEMENT Primary Procedure Yes No Primary Surgeon ANA ISLVER, ANA SILVER, HANNAH YOUNG Start 08/15/24 10:20:00 08/15/24 10:20:00 Stop 08/15/24 11:13:00 08/15/24 11:13:00 Anesthesia Type General General Surgical Service Anesthesia Anesthesia Wound Class 2 - Clean-Contaminated 1 - Clean Last Modified By: Dontrell López Ii, Alfons Ii F 08/15/24 11:27:42 08/15/24 11:27:46 General Case Data FT Pre-Care Text: Classifies surgical wound, implements aseptic technique, initiates traffic control Entry 1 Case Information OR OR 1 FT Case Level Level 3 Wound Class 2 - Clean-Contaminated Specialty Anesthesia ASA Class 2 Preop Diagnosis URETERAL STONE WITH Postop Same As Preop Yes HYDRONEPHROSIS, GROSS HEMATURIA, KIDNEY STONE LEFT Postop Diagnosis URETERAL STONE WITH Outcomes Met? Yes HYDRONEPHROSIS, GROSS HEMATURIA, KIDNEY STONE LEFT Last Modified By: AnastaciatonieDontrell Ii 08/15/24 10:31:58 Post-Care Text: The patient is free from signs and (more content not included)... [facility] CHEMISTRYOrdered By: Wayne ROP User on 08-15-2024 Glucose [Mass/Vol] 166 mg/dL High 55 - 99 mg/dL [facility] POC Subsection Comment on above: Result Comment: Archana liu RN/ POC Device SN [id number] 1 Invalid Interpretation Code [facility] POC Subsection POC User ID [id number] 1 Invalid Interpretation Code [facility] POC Subsection POC Username ANNA SCHMIDT Invalid Interpretation Code [facility] POC Subsection COAGULATIONOrdered By: Stevan Dubois on 08-15-2024 aPTT Coag (PPP) [Time] 30.8 s Normal 25.1 - 36.5 second(s) [facility] Auto Coag Comment on above: Interpretive Data: P arameter 15 days - 4 weeks 1 - 5 months 6 - 11 months 1 - 5 years 6 - 10 years 11 - 17 years PTT Mean: 35.4 (27.6-45.6) Mean: 33.5 (24.8-40.7) Mean: 32.4 (25.1-40.7) Mean: 31.6 (24.0-39.2) Mean: 31.6 (26.9-38.7) Mean: 31.0 (24.6-38.4) Pediatric Reference ranges were obtained from a study by Hussein Hansen et al. prepared from 1437 samples obtained at 7 different centers using the same coagulation reagent and instrumentation as [facility]. Currently there are no coagulation studies available worldwide for children to 14 days, and no normal ranges. Heparin therapeutic range (represented by Anti-Factor Xa activity of 0.2 - 0.4 U/mL) corresponds to PTT of 56.6 - 109.0 sec. INR Coag (PPP) [Relative time] 0.91 {INR} Invalid Interpretation Code [facility] Comment on above: Interpretive Data: I NR results are specifically intended to assess patients stabilized on long-term Anticoagulation therapy suggested INR s Less Intensive Anticoagulation 2.0 3.0 Conventional Range 3.0 4.5 PT Coag (PPP) [Time] 10.2 s Normal 9.4 - 1 2.5 second(s) [facility] Comment on above: Interpretive Data: 1 5 days - 4 weeks 1 - 5 months 6 -11 months 1 5 years 6 10 years 11 -17 years Mean: 11.2 (9.5 12.6) Mean: 11.0 (9.7 12.8) Mean: 11.0 (9.8 13.0) Mean: 11.3 (9.9 13.4) Mean: 11.7 (10.0 14.6) Mean: 11.8 (10.0 - 14.1) Pediatric Reference ranges were obtained from a study by Hussein Hansen et al. prepared from 1437 samples obtained at 7 different centers using the same coagulation reagent and instrumentation as [facility]. Currently there are no coagulation studies available worldwide for children to 14 days, and no normal ranges. Capillary Glucose POCon 07-30 Glucose [Mass/Vol] 166 mg/dL High 55-99 [facility] Comment on above: Result Comment: Archana liu RN/ Performed By: #### 2 [id number] #### [facility] [address] [place] [address] Discharge Instructionson Discharge Instructions Discharge Instruc tions CHELSEA CURRY :1945 Visit Date:08/15/2024 Inpatient Discharge Instructions Your Care Team Admitting Physician - HANNAH CHACON MD Referring Physician - HANNAH CHACON MD Reason for Your Visit URETERAL STONE WITH HYDRONEPHROSIS, GROSS HEMATURIA, KIDNEY STONE LEFT Tests Performed Calculi Analysis Urinary -- Results Pending -- XR Chest 2 Views XR Fluoroscopy Up to 1 Hour -- Results Pending -- Please visit your patient portal for your results or contact your primary care physician. Discharge Vitals Temperature (Temporal Artery) 36.3 ?C Heart Rate (Monitored) 66 Respiratory Rate 18 Blood Pressure 143/61 What to do next Instructions From Your Doctor Event Name Event Result Discharge Instructions Freetext Stents in 5 daysPlease take a Tylenol before removing your stentFlomax, oxybutynin for stent discomfort. Take oxycodone if pain is refractoryFollow-up in 6 weeks with renal ultrasound, KUB prior to office appointment Discharge Activity Ambulate as tolerated, Resume normal activities in 24 hours, Arrange for a responsible adult supervision for 24 hours, Expect mild pain, Expect minimal amount of drainage and/or bleeding Discharge Restrictions No driving for 24 hrs, Do not make important decisions for 24 hours Discharge Diet(s) Regular Discharge Instructions Discharge Instructions Previously Scheduled Follow-Up Appointments Monday 2:40 PM EST With: ÁNGELA JUAREZ PA-C Where: [facility] [address] [place] [address] [place] [address]- New Follow Up Appointments after Discharge Follow Up with HANNAH CHACON When: Comments: Call for followup appointment Where: [address], [place] [address]- [phone] Business (1) Medications What How Much When Why Instructions Next Dose New tramadol (traMADOL 50 mg Tab) 1 Tablets By Mouth Every 12 hours as needed for for pain Pickup at [facility]pharm[facility] #[id number] Changed tamsulosin (Flomax 0.4 mg Cap) 1 Capsules By Mouth Every day Pickup at [facility]/pharm[facility] #[id number] Changed tamsulosin (tamsulosin 0.4 mg Cap) 1 Capsules By Mouth At bedtime Duration: [address] refilling with Dr Eldridge at your procedure visit with him. Unchanged acetaminophen (acetaminophen 325 mg Tab) 2 Tablets By Mouth Every 8 hours Unchanged acetaminophen (acetaminophen 325 mg Tab) 2 Tablets By Mouth Every 8 hours as needed for Pain Unchanged cholecalciferol (Vitamin D3) 50 Microgram By Mouth Every day Unchanged citalopram 10 Milligram By Mouth Every day Unchanged docusate (Colace) 20 Milligram By Mouth Every day Unchanged hydrochlorothiazide (hydrochlorothiazide 25 mg Tab) 1 Tablets By Mouth Every day May resume on Unchanged levothyroxine 88 Microgram By Mouth Every day Unchanged linaclotide (Linzess 145 mcg oral capsule) 1 Capsules By Mouth Every day Anticoagulated Mejia's esophagus History of colon polyps Constipation by outlet dysfunction Unchanged mirtazapine 15 Milligram By Mouth Once a day (at bedtime) Unchanged multivitamin with minerals (PreserVision AREDS) See instructions Unchanged pantoprazole (Pantoprazole [address] Tab) 1 Tablets By Mouth Every day Mejia's esophagus Duration: 90 Days Unchanged polyethylene glycol 3350 17 Gram By Mouth Every day Unchanged rivaroxaban (Xarelto 20 mg oral tablet) 1 Tablets By Mouth Every day Unchanged semaglutide (Rybelsus 14 mg oral tablet) 14 Milligram By Mouth Every day Unchanged simvastatin See instructions 20 mg Oral Monday, Monday, Monday Pharmacy Information [facility]/pharmacy #[id number]: [address], [place] [phone] Allergies Demerol (hyper) Ketek (Unknown) Nubain (rash) Phenergan (hives) Pyridium (Nausea) ciprofloxacin (Unknown) codeine (Nausea) iodinated radiocontrast dyes (Nausea) meperidine (Unknown) moxifloxacin (Unknown) penicillins (rash) potassium citrate (Unknown) promethazine (AOF) protamine (Unknown) shellfish (Unknown) sulfa drugs (Rash) telithromycin (Unknown) tobramycin (Nausea) Devices Implanted/Removed This Visit Notice: You have devices implanted this visit that may not be MRI compatible. Implanted CYSTOSCOPY RETROGRADE STENT INSERTION Ureter L CASCADE URETERAL STENT 08/15/2024 Education Materials STENT REMOVAL INSTRUCTIONS Due to your recent procedure, your urologist may have placed a ureteric stent in your ureter (tube from kidney to bladder). A ureteric stent or JJ stent is a specifically designed hollow tube made of flexible plastic about 25-30 cm long. It is placed in the ureter and is held in place by a coil at each end. A stent?s function is to hold the ureter open so urine can drain from the kidney to the bladder and is usually inserted after you have had a ureteroscopy (a look inside the ureter). It is quite common for the stent (more content not included)... [facility] Comment on above: Result Comment: Elec tronically Signed By: Harpreet HOLLAND, Sirena Boyer\.khushi\Date and Time Signed: 08/15/24 12:07 EDT Inpatient Patient Summaryon 08-15-2024 Inpatient Patient Summary Inpatient Patient Summary [address] [address] [facility] Clinical Discharge Instructions PERSON INFORMATION Name: CHELSEA CURRYN: [birth year] [facility]#:[id number] PHYSICIANS Admitting Physician: HANNAH CHACON MD Attending Physician: HANNAH CHACON MD PCP: FLORIDALMA SILVER, JARED Concepcion Discharge Diagnosis: Comment: PATIENT EDUCATION INFORMATION Instructions: Kidney Stones Medication Leaflets: Follow up: Type Location Start Finish State URO Office Visit [facility] 09/10/2024 2:40 PM 09/10/2024 3:00 PM Confirmed MEDICATION LIST New Medications [id number], [address], [place] [phone], [phone] tramadol (traMADOL 50 mg Tab) 1 Tablets By Mouth every 12 hours as needed for pain. Refills: 0. Medications to Continue Taking That Have Changed [facility]/pharmacy #[id number], [address], [place] [phone], [phone] START: tamsulosin (Flomax 0.4 mg Cap) 1 Capsules By Mouth every day. Refills: 0. Other Medications START: tamsulosin (tamsulosin 0.4 mg Cap) 1 Capsules By Mouth at bedtime for [address] refilling with Dr Eldridge at your procedure visit with him.. Refills: 0. Medications to Continue with No Changes Other Medications acetaminophen (acetaminophen 325 mg Tab) 2 Tablets By Mouth every 8 hours. acetaminophen (acetaminophen 325 mg Tab) 2 Tablets By Mouth every 8 hours as needed Pain. cholecalciferol (Vitamin D3) 50 Microgram By Mouth every day. citalopram 10 Milligram By Mouth every day. docusate (Colace) 20 Milligram By Mouth every day. hydrochlorothiazide (hydrochlorothiazide 25 mg Tab) 1 Tablets By Mouth every day. May resume on 08/11. levothyroxine 88 Microgram By Mouth every day. linaclotide (Linzess 145 mcg oral capsule) 1 Capsules By Mouth every day. Refills: 4. mirtazapine 15 Milligram By Mouth once a day (at bedtime). multivitamin with minerals (PreserVision AREDS) pantoprazole (Pantoprazole [address] Tab) 1 Tablets By Mouth every day for 90 Days. Refills: 2. polyethylene glycol 3350 17 Gram By Mouth every day. rivaroxaban (Xarelto 20 mg oral tablet) 1 Tablets By Mouth every day. semaglutide (Rybelsus 14 mg oral tablet) 14 Milligram By Mouth every day. simvastatin 20 mg Oral Monday, Monday, Monday. Comment: Normal [facility] Main OR PACU I Recordon 07-30 Main OR PACU I Record Main OR PACU I Rec ord PACU Phase I Document Type FT Summary Primary Physician: HANNAH CHACON MD Finalized Date/Time: 08/15/24 12:17:13 Pt. Name: CHELSEA CURRY Jamey Soriano./Sex: 1945 Female Med Rec #: [id number] Physician: HANNAH CHACON MD Financial #: [id number] Pt. Type: A Room/Bed: [facility] Admit/Disch: 08/15/24 08:14:52 - Institution: Case Times PACU I FT [...] to medications Entry 1 In PACU I 08/15/24 11:26:00 Discharge from PACU 08/15/24 11:56:00 I Outcomes Met? Yes Last Modified By: Ayaka Cornell RN 08/15/24 12:16:54 Post-Care Text: The patient demonstrates knowledge of [...] PACU I FT Entry 1 Start Time 08/15/24 11:26:00 Stop Time 08/15/24 11:56:00 Acuity Level Acuity Level I Last Modified By: Ayaka Cornell RN 08/15/24 12:17:08 Finalized By: Ayaka Cornell RN Document Signatures Signed By: Ayaka Cornell RN 08/15/24 12:17 Normal [facility] Main OR PACU II Recordon Main OR PACU II Record Main OR PACU II R ecord PACU Phase II Document Type FT Summary Primary Physician: HANNAH CHACON MD Finalized Date/Time: 08/15/24 13:05:49 Pt. Name: PATRICIOCHELSEA/Sex: 1945 Female Med Rec #: [id number] Physician: HANNAH CHACON MD Financial #: [id number] Pt. Type: A Room/Bed: [facility]/ Admit/Disch: 08/15/24 08:14:52 - Institution: Case Times PACU II FT Pre-Care Text: Identifies barriers to communication and implements measures to provide psychological support and determines knowledge level Develops individualized plan of care, and ensures continuity of care Maintains patient's dignity and privacy, and maintains patient confidentiality Identifies and reports philosophical, cultural, and spiritual beliefs and values Identifies individual values and wishes concerning care administers prescribed antibiotic therapy and immunizing agents as ordered, Evaluates postoperative tissue perfusion Implements thermoregulation measures, and monitors body temperature Evaluates postoperative respiratory status Evaluates postoperative cardiac status Evaluates postoperative neurological status Assesses pain control, collaborated in initiating patient-controlled analgesia and implements alternative methods of pain control Verifies allergies, administers prescribed medications and solutions, evaluates response to medications Entry 1 In PACU II 08/15/24 12:00:00 Discharge from PACU 08/15/24 13:10:00 II Outcomes Met? Yes Last Modified By: Sirena Mullins RN 08/15/24 13:05:48 Post-Care Text: The patient demonstrates knowledge of [...] affecting his or her perioperative plan of care. The patient is free from signs and [...] from baseline levels established preoperatively The patient's neurological status is consistent with or improved from baseline levels established preoperatively The patient demonstrates and/or reports adequate pain control throughout the perioperative period The patient received appropriate medication(s), safely administered during the perioperative period Finalized By: Sirena Mullins RN Document Signatures Signed By: Sirena Mullins RN 08/15/24 13:05 Normal [facility] Main OR Preoperative Recordo n 08-15-2024 Main OR Preoperative Record Main OR Preoperative Record PreOp Document Type FT Summary Primary Physician: HANNAH CHACON MD Finalized Date/Time: 08/15/24 10:28:33 Pt. Name: PATRICIO CHELSEAMaria Isabel Concepcion D.O.B./Sex: 1945 Female Med Rec #: [id number] Physician: HANNAH CHACON MD Financial #: [id number] Pt. Type: A Room/Bed: Admit/Disch: 08/15/24 08:14:52 - Institution: Case Times PreOp FT Pre-Care Text: Verifies consent for planned procedure, identifies individual values and wishes concerning care, includes family members in perioperative teaching Entry 1 Patient Times. In Pre Surgery 08/15/24 09:00:00 Out Pre Surgery 08/15/24 10:04:00 Outcomes Met? Yes Last Modified By: Dontrell López Ii 08/15/24 10:28:30 Post-Care Text: The patient participates in decisions affecting his or her perioperative plan of care Finalized By: Dontrell López Ii Document Signatures Signed By: Dontrell López Ii 08/15/24 10:28 [facility] Operative Reporton 4 Operative Report Operative Report Patient: CHELSEA CURRY Age: 79 years Sex: Female : 1945 Associated Diagnoses: None Author: HANNAH CHACON MD Procedure SURGEON: Hannah Chacon MD PREOPERATIVE DIAGNOSIS: Left midureteral stone POSTOPERATIVE DIAGNOSIS: Same PROCEDURE: Cystoscopy, left ureteroscopy, left laser lithotripsy, left ureteral stent placement FINDINGS: Grade 2 bladder prolapse, 4 mm mid ureteral stone lasered into small submillimeter fragments, intrarenal calculi less than 2 submillimeter fragment ANESTHESIA: LMA INTRAVENOUS FLUIDS: See anesthesia records ESTIMATED BLOOD LOSS: Minimal TUBES AND DRAINS: 6 x 26 cm double-J ureteral stent with strings SPECIMENS: None COMPLICATIONS: None INDICATIONS FOR PROCEDURE: Patient is an 79-year-old female who presented with left-sided flank pain. She previously had a stent placed and presents today for definitive stone treatment. H&P was reviewed, informed consent was obtained, patient understood risk, benefits, alternatives to the procedure and wished to proceed. OPERATIVE DETAIL: Patient was brought to the operative suite and placed on continuous pulse oximetry and cardiac monitoring anesthesia. IV antibiotics including 2 g of Ancef was administered. She was then placed in the dorsolithotomy position and prepped and draped in normal sterile fashion. Timeouts performed confirming patient, procedure, side, all in the room agreed. A well-lubricated 22 [place] scopic sheath with 30 lens was set into urethral meatus and advanced into the bladder. Upon entering the bladder we directed attention to the left ureteral orifice where he grabbed the previously assisted stent and brought it out through the urethral meatus. We then cannulated with a Glidewire and over the wire we went up with a semirigid scope to the mid ureter. We then switched out the semirigid scope for a flexible ureteroscope and obtained a 200 ?m laser fiber for which we began lasering the stone into small submillimeter fragments. These were then flushed into the bladder. We then went up into the kidney and did a [place] pyeloscopy where we found further stone fragments which were lasered. Once this was done a wire was placed back into the collecting system and the scope was removed. Over the wire we placed a 6 x 26 cm double-J ureteral stent visualizing a curl in the renal pelvis and a curl in the bladder. Strings were left on the stent and attached to the mons pubis using Tegaderm. This concluded the procedure. Patient will then awakened by anesthesia and transferred to PACU in stable condition. PLAN: Stent in 5 days She is encouraged to hydrate vigorously with at least 2 L/day Take Tylenol and ibuprofen for pain. Tramadol for breakthrough Follow-up in 6 weeks with renal ultrasound, KUB prior to office visit. [facility] Comment on above: Result Comment: Elec tronically Signed By: HANNAH CHACON MD\.br\Date and Time Signed: 08/15/24 13:06 EDT Outpatient Surgery Discharge Instructionon 08-15-2024 Outpatient Surgery Discharge Instruction Outpatient Surgery Discharge Instruction [place] [id number] Patient Discharge Instructions PERSON INFORMATION Name: CHELSEA CURRY Date of : 1945 Current Date: 08/15/2024 11:42:31 PHYSICIANS Admitting Physician: HANNAH CHACON MD Discharge Diagnosis: CHELSEA CURRY has been given the following list of follow-up instructions, prescriptions, and patient education materials: PATIENT FOLLOW-UP INFORMATION Diet: Regular Discharge Activity: Ambulate as tolerated, Resume normal activities in 24 hours, Arrange for a responsible adult supervision for 24 hours, Expect mild pain, Expect minimal amount of drainage and/or bleeding Discharge Restrictions: No driving for 24 hrs, Do not make important decisions for 24 hours Additional Instructions: Stents in 5 days Please take a Tylenol before removing your stent Flomax, oxybutynin for stent discomfort. Take oxycodone if pain is refractory Follow-up in 6 weeks with renal ultrasound, KUB prior to office appointment IF UNABLE TO CONTACT YOUR PHYSICIAN AND YOU FEEL IT IS AN EMERGENCY, GO TO THE NEAREST EMERGENCY ROOM OR CALL 911 PATRICIO hC LINDA L, have received the attached patient education materials/instructions and have verbalized understanding: May we do a follow up call? Yes No I was present when discharge instructions were given Patient Signature ___ Date Clinican/Nurse Signature Date Follow up: Type Location Start Finish State URO Office Visit [facility] [place] 09/10/2024 2:40 PM 09/10/2024 3:00 PM Confirmed Pharmacy Information: You may receive a survey from [employer] [facility] asking you to rate your care experience. Your feedback is important and will help us understand what we do well and how we can improve the quality of care we provide to you, your loved ones and our community. It?s an honor to serve you. Thank you for choosing [facility] HERE ARE THE MEDICATION CHANGES THAT OCCURRED DURING YOUR HOSPITAL STAY New Medications [id number], [address], [place] [id number], [phone] tramadol (traMADOL 50 mg Tab) 1 Tablets By Mouth every 12 hours as needed for pain. Refills: 0. Medications to Continue Taking That Have Changed [id number], [address], [place] [id number], [phone] START: tamsulosin (Flomax 0.4 mg Cap) 1 Capsules By Mouth every day. Refills: 0. Other Medications START: tamsulosin (tamsulosin 0.4 mg Cap) 1 Capsules By Mouth at bedtime for [address]iscuss refilling with Dr Eldridge at your procedure visit with him.. Refills: 0. Medications to Continue with No Changes Other Medications acetaminophen (acetaminophen 325 mg Tab) 2 Tablets By Mouth every 8 hours. acetaminophen (acetaminophen 325 mg Tab) 2 Tablets By Mouth every 8 hours as needed Pain. cholecalciferol (Vitamin D3) 50 Microgram By Mouth every day. citalopram 10 Milligram By Mouth every day. docusate (Colace) 20 Milligram By Mouth every day. hydrochlorothiazide (hydrochlorothiazide 25 mg Tab) 1 Tablets By Mouth every day. May resume on 08/11. levothyroxine 88 Microgram By Mouth every day. linaclotide (Linzess 145 mcg oral capsule) 1 Capsules By Mouth every day. Refills: 4. mirtazapine 15 Milligram By Mouth once a day (at bedtime). multivitamin with minerals (PreserVision AREDS) pantoprazole (Pantoprazole [address] Tab) 1 Tablets By Mouth every day for 90 Days. Refills: 2. polyethylene glycol 3350 17 Gram By Mouth every day. rivaroxaban (Xarelto 20 mg oral tablet) 1 Tablets By Mouth every day. semaglutide (Rybelsus 14 mg oral tablet) 14 Milligram By Mouth every day. simvastatin 20 mg Oral Monday, Monday, Monday. PATIENT EDUCATION INFORMATION Instructions: STENT REMOVAL INSTRUCTIONS Due to your recent procedure, your urologist may have placed a ureteric stent in your ureter (tube from kidney to bladder). A ureteric stent or JJ stent is a specifically designed hollow tube made of flexible plastic about 25-30 cm long. It is placed in the ureter and is held in place by a coil at each end. A stent?s function is to hold the ureter open so urine can drain from the kidney to the bladder and is usually inserted after you have had a ureteroscopy (a look inside the ureter). It is quite common for the stent to irritate the bladder, and you may go to the toilet often and pass very little urine. This is just temporary and will resolve once the stent is removed. If this is distressing, take the oxybutynin provided to you. It is also common to experience discomfort in the kidney region when passing urine, whilst you have (more content not included)... [facility] PT & PTTon 08-15-2024 aPTT Coag (PPP) [Time] 30.8 second(s) Normal 25.1-36.5 [facility] Comment on above: Result Comment: Para meter 15 days - 4 weeks 1 - 5 months 6 - 11 months 1 - 5 years 6 - 10 years 11 - 17 years PTT Mean: 35.4 (27.6-45.6) Mean: 33.5 (24.8-40.7) Mean: 32.4 (25.1-40.7) Mean: 31.6 (24.0-39.2) Mean: 31.6 (26.9-38.7) Mean: 31.0 (24.6-38.4) Pediatric Reference ranges were obtained from a study by Hussein Hansen et al. prepared from 1437 samples obtained at 7 different centers using the same coagulation reagent and instrumentation as [facility]. Currently there are no coagulation studies available worldwide for children to 14 days, and no normal ranges. Heparin therapeutic range (represented by Anti-Factor Xa activity of 0.2 - 0.4 U/mL) corresponds to PTT of 56.6 - 109.0 sec. Performed By: #### 1 [id number] #### [facility] [address] [place] [address] INR Coag (PPP) [Relative time] 0.91 {INR} Invalid Interpretation Code [facility] Comment on above: Result Comment: INR results are specifically intended to assess patients stabilized on long-term Anticoagulation therapy suggested INR?s ?Less Intensive Anticoagulation? 2.0 ? 3.0 Conventional Range 3.0 ? 4.5 Performed By: #### 1 [id number] #### [facility] [address] [place] [address] PT Coag (PPP) [Time] 10.2 second(s) Normal 9.4-12.5 [facility] Comment on above: Result Comment: 15 d ays - 4 weeks 1 - 5 months 6 -11 months 1 ? 5 years 6 ? 10 years 11 -17 years Mean: 11.2 (9.5 ? 12.6) Mean: 11.0 (9.7 ? 12.8) Mean: 11.0 (9.8 ? 13.0) Mean: 11.3 (9.9 ? 13.4) Mean: 11.7 (10.0 ? 14.6) Mean: 11.8 (10.0 - 14.1) Pediatric Reference ranges were obtained from a study by Hussein Hansen et al. prepared from 1437 samples obtained at 7 different centers using the same coagulation reagent and instrumentation as [facility]. Currently there are no coagulation studies available worldwide for children to 14 days, and no normal ranges. Performed By: #### 1 [id number] #### [facility] [address] [place] [address] Proceduralon 08-15-2024 Procedural Procedural Patient: CHELSEA CURRY Age: 79 years Sex: Female : 1945 Associated Diagnoses: None Author: Jaron Brandon MD Postoperative Information Postoperative disposition: Postoperative disposition: To PACU. Optimetrix number: Optimetrix number [id number]. Anesthetic utilized: General. Health Status Allergies: Allergic Reactions (Selected) Severity Not Documented Codeine- Nausea. Demerol- Hyper. Iodinated radiocontrast dyes- Nausea. Ketek- Unknown. Nubain- Rash. Penicillins- Rash. Phenergan- Hives. Pyridium- Nausea. Sulfa drugs- Rash. Tobramycin- Nausea. Nonallergic Reactions (Selected) Severity Not Documented Ciprofloxacin- Unknown. Meperidine- Unknown. Moxifloxacin- Unknown. Potassium citrate- Unknown. Promethazine- Aof. Protamine- Unknown. Shellfish- Unknown. Telithromycin- Unknown. Physical Examination Vital Signs 08/15/2024 13:06 EDT Heart Rate Monitored 62 bpm Respiratory Rate 16 br/min Systolic Blood Pressure 138 mmHg Diastolic Blood Pressure 72 mmHg Blood Pressure Location Left arm SpO2 99 % 08/15/2024 12:01 EDT Heart Rate Monitored 66 bpm SpO2 99 % 08/15/2024 12:01 EDT Systolic Blood Pressure 143 mmHg HI Diastolic Blood Pressure 61 mmHg Mean Arterial Pressure, Monitered 88 mmHg 08/15/2024 12:01 EDT Blood Pressure Location Left arm 08/15/2024 12:00 EDT Respiratory Rate 18 br/min 08/15/2024 11:55 EDT Temperature Temporal Artery 36.3 DegC Heart Rate Monitored 60 bpm Respiratory Rate Monitored 17 br/min Systolic Blood Pressure 148 mmHg HI Diastolic Blood Pressure 73 mmHg Blood Pressure Location Left arm Mean Arterial Pressure, Cuff 98 mmHg SpO2 98 % Pain Assessment: Controlled. General: Awake, Appropriate. Respiratory: Adequate air exchange. Cardiovascular: Stable. Neurological Assessment Anesthetic outcome No anesthetic complications noted. Adequate pain relief. Review / Management Condition: Stable. Plan Transfer/Discharge: Transfer/Discharge Discharge when meets criteria ( To home ). [facility] Procedural Procedural Patient: CHELSEA CURRY Age: 79 years Sex: Female : 1945 Associated Diagnoses: None Author: Aleksandr SILVER, Jaron Rea Preoperative Information Anesthesia Preop Info: Time patient last ate or drank 08/15/2024 00:00:00. Anesthesia history: Patient history: N/V with anesthesia. Family history+: None. Informed consent: Signed by patient. Re-evaluation prior to induction: Initial evaluation reviewed: No significant change. Review of Systems Eye Ear/Nose/Mouth/Throat Respiratory: No shortness of breath, No cough. Cardiovascular: Negative. Gastrointestinal: Heartburn. Musculoskeletal Neurologic Health Status Allergies: Allergic Reactions (Selected) Severity Not Documented Codeine- Nausea. Demerol- Hyper. Iodinated radiocontrast dyes- Nausea. Ketek- Unknown. Nubain- Rash. Penicillins- Rash. Phenergan- Hives. Pyridium- Nausea. Sulfa drugs- Rash. Tobramycin- Nausea. Nonallergic Reactions (Selected) Severity Not Documented Ciprofloxacin- Unknown. Meperidine- Unknown. Moxifloxacin- Unknown. Potassium citrate- Unknown. Promethazine- Aof. Protamine- Unknown. Shellfish- Unknown. Telithromycin- Unknown., Allergies (18) Active Severity Reaction codeine Nausea Demerol hyper iodinated radiocontrast dyes Nausea Nubain rash penicillins rash Phenergan hives Pyridium Nausea sulfa drugs Rash tobramycin Nausea ciprofloxacin Unknown meperidine Unknown moxifloxacin Unknown potassium citrate Unknown promethazine AOF protamine Unknown shellfish Unknown telithromycin Unknown Ketek Unknown Current medications: (Selected) Inpatient Medications Ordered HYDROmorphone 1 mg/mL injectable solution: 0.2 mg = 0.2 mL, Injection, IV Push, q2min PRN Pain for 10 dose(s), Stop date Limited # of times, Routine, Start date 08/15/24 10:02:00 EDT, 08/15/24 10:02:00 EDT Lactated Ringers IV Dana 1000 mL 1,000 mL: 1,000 mL, IV, 100 mL/hr, Routine, Start date 08/15/24 10:02:00 EDT, 10 hour(s), Total volume (mL): 1,000, 63.4 kg, 1.7, m2 Lactated Ringers IV Dana 1000 mL 1,000 mL: 1,000 mL, IV, 150 mL/hr, Routine, Start date 08/15/24 8:00:00 EDT, 6.7 hour(s), Total volume (mL): 1,000, 63.4 kg, 1.7, m2 Zofran 4 mg/2 mL Injection: 4 mg = 2 mL, Injection, IV Push, Once PRN Nausea/Vomiting, Routine, Start date 08/15/24 10:02:00 EDT, 08/15/24 10:02:00 EDT cefazolin additive + Sodium Chloride 0.9% intravenous solution 50 mL: 2 gram = 1 EA, Powder-Inj, IV Piggyback, Once, Stop date 08/15/24 8:00:00 EDT, Routine, Start date 08/15/24 8:00:00 EDT, 100 mL/hr, Infuse over 30 minute(s), HOLD if patient has history of anaphylactic allergic reaction to Penicillin Prescriptions Prescribed Linzess 145 mcg oral capsule: 145 mcg = 1 cap(s), Oral, Daily, # 30 cap(s), Refills(s) 4, [id number], 165, cm, 07/24/24 12:20:00 EDT, Height/Length Dosing, 64, kg, 07/24/24 12:20:00 EDT, Weight Dosing Pantoprazole [address] Tab: 40 mg = 1 tab(s), Oral, Daily, X 90 day(s), # 90 tab(s), Refills(s) 2, Pharmacy: [facility], 162.5, cm, 01/17/24 14:37:00 EDT, Height/Length Dosing, 67, kg, 01/17/24 14:37:00 EDT, Weight Dosing tamsulosin 0.4 mg Cap: 0.4 mg = 1 cap(s), Oral, Bedtime, Discuss refilling with Dr Eldridge at your procedure visit with him., X 7 day(s), # 7 cap(s), Refills(s) 0, [id number], 165, cm, 08/09/24 8:35:00 EDT, Height/Length Dosing, 63.4, kg, 08/09/24 8:35:00 E... Documented Medications Documented Colace: 20 mg, Oral, Daily, Refills(s) 0 PreserVision AREDS: See Instructions, Refill(s) 0, Prophylaxis Rybelsus 14 mg oral tablet: 14 mg, Oral, Daily, Refills(s) 0 Vitamin D3: 50 mcg, Oral, Daily, Refills(s) 0, Prophylaxis Xarelto 20 mg oral tablet: 20 mg = 1 tab(s), Oral, Daily, Refills(s) 0, Blood Thinner acetaminophen 325 mg Tab: 650 mg = 2 tab(s), Oral, q8hr, PRN Pain, Refills(s) 0 acetaminophen 325 mg Tab: 650 mg = 2 tab(s), Oral, q8hr, Refills(s) 0 citalopram: 10 mg, Oral, Daily, Refills(s) 0, Depression hydrochlorothiazide 25 mg Tab: 25 mg = 1 tab(s), Oral, Daily, May resume on 08/11, Refills(s) 0, High blood pressure levothyroxine: 88 mcg, Oral, Daily, Refills(s) 0, Thyroid mirtazapine: 15 mg, Oral, Once a day (at bedtime), Refills(s) 0, Depression polyethylene glycol 3350: 17 gm, Oral, Daily, Refill(s) 0 simvastatin: See Instructions, 20 mg Oral Monday, Monday, Monday, Refills(s) 0, High cholesterol, Home Medications (16) Active acetaminophen 325 mg Tab 650 mg = 2 tab(s), Oral, q8hr acetaminophen 325 mg Tab 650 mg = 2 tab(s), PRN, Oral, q8hr citalopram 10 mg, Oral, Daily Colace 20 mg, Oral, Daily hydrochlorothiazide 25 mg Tab 25 mg = 1 tab(s), Oral, Daily levothyroxine 88 mcg, Oral, Daily Linzess 145 mcg oral capsule 145 mcg = 1 cap(s), Oral, Daily mirtazapine 15 mg, Oral, Once a day (at bedtime) Pantoprazole [address] Tab 40 mg = 1 tab(s), Oral, Daily polyethylene glycol 335 (more content not included)... [facility] Comment on above: Result Comment: keven te per Dr Brandon Procedural Procedural Patient: CHELSEA CURRY Age: 79 years Sex: Female : 1945 Associated Diagnoses: None Author: Aleksandr SILVER, Jaron Rea Preoperative Information Anesthesia Preop Info: Time patient last ate or drank 04/02/2024 00:00:00. Anesthesia history: Patient history: None. Family [...] Promethazine- Aof. Protamine- Unknown. Shellfish- Unknown. Telithromycin- Unknown., Allergies (18) Active Severity Reaction codeine Nausea Demerol hyper iodinated radiocontrast dyes Nausea Nubain rash penicillins rash Phenergan hives Pyridium Nausea sulfa drugs Rash tobramycin Nausea ciprofloxacin Unknown meperidine Unknown moxifloxacin Unknown potassium citrate Unknown promethazine AOF protamine Unknown shellfish Unknown telithromycin Unknown Ketek Unknown Current medications: (Selected) Inpatient Medications Ordered Lactated Ringers IV Dana 1000 mL 1,000 mL: 1,000 mL, IV, 150 mL/hr, Routine, Start date 08/15/24 8:00:00 EDT, 6.7 hour(s), Total volume (mL): 1,000, 63.4 kg, 1.7, m2 cefazolin additive + Sodium Chloride 0.9% intravenous solution 50 mL: 2 gram = 1 EA, Powder-Inj, IV Piggyback, Once, Stop date 08/15/24 8:00:00 EDT, Routine, Start date 08/15/24 8:00:00 EDT, 100 mL/hr, Infuse over 30 minute(s), HOLD if patient has history of anaphylactic allergic reaction to Penicillin Prescriptions Prescribed Linzess 145 mcg oral capsule: 145 mcg = 1 cap(s), Oral, Daily, # 30 cap(s), Refills(s) 4, Pharmacy: [id number], 165, cm, 07/24/24 12:20:00 EDT, Height/Length Dosing, 64, kg, 07/24/24 12:20:00 EDT, Weight Dosing Pantoprazole [address] Tab: 40 mg = 1 tab(s), Oral, Daily, X 90 day(s), # 90 tab(s), Refills(s) 2, Pharmacy: [facility], 162.5, cm, 01/17/24 14:37:00 EDT, Height/Length Dosing, 67, kg, 01/17/24 14:37:00 EDT, Weight Dosing tamsulosin 0.4 mg Cap: 0.4 mg = 1 cap(s), Oral, Bedtime, Discuss refilling with Dr Eldridge at your procedure visit with him., X 7 day(s), # 7 cap(s), Refills(s) 0, Pharmacy: [id number], 165, cm, 08/09/24 8:35:00 EDT, Height/Length Dosing, 63.4, kg, 08/09/24 8:35:00 E... Documented Medications Documented Colace: 20 mg, Oral, Daily, Refills(s) 0 PreserVision AREDS: See Instructions, Refill(s) 0, Prophylaxis Rybelsus 14 mg oral tablet: 14 mg, Oral, Daily, Refills(s) 0 Vitamin D3: 50 mcg, Oral, Daily, Refills(s) 0, Prophylaxis Xarelto 20 mg oral tablet: 20 mg = 1 tab(s), Oral, Daily, Refills(s) 0, Blood Thinner acetaminophen 325 mg Tab: 650 mg = 2 tab(s), Oral, q8hr, PRN Pain, Refills(s) 0 acetaminophen 325 mg Tab: 650 mg = 2 tab(s), Oral, q8hr, Refills(s) 0 citalopram: 10 mg, Oral, Daily, Refills(s) 0, Depression hydrochlorothiazide 25 mg Tab: 25 mg = 1 tab(s), Oral, Daily, May resume on 08/11, Refills(s) 0, High blood pressure levothyroxine: 88 mcg, Oral, Daily, Refills(s) 0, Thyroid mirtazapine: 15 mg, Oral, Once a day (at bedtime), Refills(s) 0, Depression polyethylene glycol 3350: 17 gm, Oral, Daily, Refill(s) 0 simvastatin: See Instructions, 20 mg Oral Monday, Monday, Monday, Refills(s) 0, High cholesterol, Home Medications (16) Active acetaminophen 325 mg Tab 650 mg = 2 tab(s), Oral, q8hr acetaminophen 325 mg Tab 650 mg = 2 tab(s), PRN, Oral, q8hr citalopram 10 mg, Oral, Daily Colace 20 mg, Oral, Daily hydrochlorothiazide 25 mg Tab 25 mg = 1 tab(s), Oral, Daily levothyroxine 88 mcg, Oral, Daily Linzess 145 mcg oral capsule 145 mcg = 1 cap(s), Oral, Daily mirtazapine 15 mg, Oral, Once a day (at bedtime) Pantoprazole [address] Tab 40 mg = 1 tab(s), Oral, Daily polyethylene glycol 3350 17 gm, Oral, Daily PreserVision AREDS See Instructions Rybelsus 14 mg oral tablet 14 mg, Oral, Daily simvastatin See Instructions tamsulosin 0.4 mg Cap 0.4 mg = 1 cap(s), Oral, Bedtime Vitamin D3 50 mcg, Oral, Daily Xarelto 20 mg oral ta (more content not included)... [facility] XR Chest 2 Viewson XR Chest 2 Views Exam Date/Time: 08/15/2024 08:28 EDT Reason for Exam: P.A.T. Report IMPRESSION: NO EVIDENCE OF ACTIVE CARDIOPULMONARY DISEASE. EXAM: XR Chest 2 Views DATE: 08/15/2024 8:21 AM CLINICAL HISTORY: P.A.T. COMPARISON: 03/22/2023. TECHNIQUE: Upright PA and lateral radiographs of the chest were obtained. FINDINGS: There is no significant pulmonary infiltrate, cardiomegaly, pleural effusion, vascular congestion, pneumothorax, or displaced fractures identified. Ordering Provider: Jaron Brandon FINAL REPORT Dictated: 08/15/2024 8:44 am Odell Looney MD Signed (Electronic Signature): 08/15/2024 8:44 am Signed by: Odell Looney MD Transcribed by: WERNER Technologist: BETZAIDA Technical Comments Radiation Dose: Ka,r in mGy = na DAP = na [facility] C Urineon 08-11-2024 Bacteria identified Cx Nom (U) Microbiology PROCEDURE: Urine Culture [R1] SOURCE: U CleanCatch BODY SITE: COLLECTED DATE/TIME: 08/09/2024 09:41 EDT RECEIVED DATE/TIME: 08/09/2024 11:12 EDT START DATE/TIME: 08/09/2024 11:12 EDT FREE TEXT SOURCE: Stu HERNANDEZ, Salvador Reed. Stu HERNANDEZ, Salvador Reed. FINAL REPORTS Final Report [] Verified Date/Time: 08/11/2024 08:47 EDT 2,000 cfu/ml Mixed skin contaminants Performing Locations R1: This test was performed at: [facility], [address] [place] [address], [id number] , [place], [facility] Comment on above: Performed By: #### 2 [id number] #### [facility] [address] [place] [address] BMPon 08-10-2024 Anion gap [Moles/Vol] 8 mmol/L Normal 6-16 [facility] Comment on above: Performed By: #### 2 [id number] #### [facility] [address] [place] [address] Calcium [Mass/Vol] 8.8 mg/dL Low 8.9-11.1 [facility] Comment on above: Performed By: #### 2 [id number] #### [facility] [address] [place] [id number] Chloride [Moles/Vol] 107 mmol/L Normal 101-111 [facility] Comment on above: Performed By: #### 2 [id number] #### [facility] [address] [place] [address] CO2 [Moles/Vol] 28 mmol/L Normal 21-31 [facility] Comment on above: Performed By: #### 2 [id number] #### [facility] [address] [place] [address] Creatinine [Mass/Vol] 0.8 mg/dL Normal 0.5-1.3 [facility] Comment on above: Performed By: #### 2 [id number] #### [facility] [address] [place] [address] Glucose [Mass/Vol] 177 mg/dL Normal 55-199 [facility] Comment on above: Performed By: #### 2 [id number] #### [facility] [address] [place] [address] Potassium [Moles/Vol] 3.6 mmol/L Normal 3.5-5.3 [facility] Comment on above: Performed By: #### 2 [id number] #### [facility] [address] [place] [address] Sodium [Moles/Vol] 139 mmol/L Normal 135-145 [facility] Comment on above: Performed By: #### 2 [id number] #### [facility] [address] [place] [address] Urea nitrogen [Mass/Vol] 17 mg/dL Normal 5-21 [facility] Comment on above: Performed By: #### 2 [id number] #### [facility] [address] [place] [address] Urea nitrogen/Creatinine [Mass ratio] 21 No Units High 10-20 [facility] Comment on above: Performed By: #### 2 [id number] #### [facility] [address] [place] [address] CBC w/ Auto Diffon 4 Basophils/100 WBC (Bld) 0.8 % Normal 0.0-2.0 [facility] [facility] Comment on above: Performed By: #### 2 [id number] #### [facility] [address] [place] [address] Basophils/Leukocytes Auto (Bld) [Pure # fraction] 0.1 E9/L Normal 0.0-0.2 [facility] Comment on above: Performed By: #### 2 [id number] #### [facility] [address] [place] [address] Eosinophils (Bld) [#/Vol] 0.0 E9/L Normal 0.0-0.5 [facility] Comment on above: Performed By: #### 2 [id number] #### [facility] [address] [place] [address] Eosinophils/100 WBC (Bld) 0.5 % Normal 0.0-8.0 [facility] Comment on above: Performed By: #### 2 [id number] #### [facility] [address] [place] [address] Erythrocyte distribution width (RBC) [Ratio] 13.9 % Normal 10.9-14.2 [facility] Comment on above: Performed By: #### 2 [id number] #### [facility] [address] [place] [address] Hematocrit (Bld) [Volume fraction] 37.5 % Normal 34.0-46.0 [facility] Comment on above: Performed By: #### 2 [id number] #### [facility] [address] [place] [address] Hemoglobin (Bld) [Mass/Vol] 12.8 g/dL Normal 12.0-16.0 [facility] Comment on above: Performed By: #### 2 [id number] #### [facility] [address] [place] [address] Lymphocytes (Bld) [#/Vol] 0.8 E9/L Low 1.0-4.0 [facility] Comment on above: Performed By: #### 2 [id number] #### [facility] [address] [place] [address] Lymphocytes/100 WBC (Bld) 9.5 % Low 14.0-50.0 [facility] Comment on above: Performed By: #### 2 [id number] #### [facility] [address] [place] [address] MCH (RBC) [Entitic mass] 32.2 pg Normal 27.0-34.0 [facility] Comment on above: Performed By: #### 2 [id number] #### [facility] [address] [place] [address] MCHC (RBC) [Mass/Vol] 34.1 g/dL Normal 31.4-36.0 [facility] Comment on above: Performed By: #### 2 100389 #### [facility] [address] [place] [address] MCV (RBC) [Entitic vol] 94.3 fL Normal 80.0-100.0 [facility] Comment on above: Performed By: #### 2 [id number] #### [facility] [address] [place] [address] Monocytes (Bld) [#/Vol] 0.7 E9/L Normal 0.2-1.0 [facility] Comment on above: Performed By: #### 2 [id number] #### [facility] [address] [place] [address] Neutrophils (Bld) [#/Vol] 6.7 E9/L Normal 2.0-7.5 [facility] Comment on above: Performed By: #### 2 [id number] #### [facility] [address] [place] [address] Neutrophils/100 WBC (Bld) 81.1 % High 36.0-75.0 [facility] Comment on above: Performed By: #### 2 [id number] #### [facility] [address] [place] [address] Platelet mean volume (Bld) [Entitic vol] 8.2 fL Normal 6.4-10.8 [facility] Comment on above: Performed By: #### 2 705507 #### [facility] [address] [place] [address] Platelets (Bld) [#/Vol] 198.0 E9/L Normal 150. 0-500. 0 [facility] Comment on above: Performed By: #### 2 [id number] #### [facility] [address] [place] [address] RBC (Bld) [#/Vol] 4.0 E12/L Low 4.3-5.9 [facility] Comment on above: Performed By: #### 2 [id number] #### [facility] [address] [place] [address] WBC corrected for nucl RBC Auto (Bld) [#/Vol] 8.2 E9/L Normal 4.0-11.0 [facility] Comment on above: Performed By: #### 2 [id number] #### [facility] [address] [place] [address] CHEMISTRYOrdered By: SYSTEM SYSTEM on 08-10-2024 Anion gap [Moles/Vol] 8 mmol/L Normal 6 - 16 mEq/L [facility] Calcium [Mass/Vol] 8.8 mg/dL Low 8.9 - 11. 1 mg/dL [facility] Chloride [Moles/Vol] 107 mmol/L Normal 101 - 1 11 mmol/L [facility] CO2 [Moles/Vol] 28 mmol/L Normal 21 - 31 mmol/L [facility] Creatinine [Mass/Vol] 0.8 mg/dL Normal 0.5 - 1.3 mg/dL [facility] eGFR 74 mL/min/1.73 m2 Normal >=59mL/min /1.73 m2 [facility] Glucose [Mass/Vol] 177 mg/dL Normal 55 - 199 mg/dL [facility] Magnesium [Mass/Vol] 1.8 mg/dL Normal 1.3 - 2 .4 mg/dL [facility] Potassium [Moles/Vol] 3.6 mmol/L Normal 3.5 - 5.3 mmol/L [facility] Sodium [Moles/Vol] 139 mmol/L Normal 135 - 145 mmol/L [facility] Urea nitrogen [Mass/Vol] 17 mg/dL Normal 5 - 21 mg/dL [facility] Urea nitrogen/Creatinine [Mass ratio] 21 mg/mg High 10 - 20 [facility] HEMATOLOGYOrdered By: SYSTEM SYSTEM on 08-10-2024 Basophils/100 WBC (Bld) 0.8 % Normal 0.0 - 2.0 % [facility] Basophils/Leukocytes Auto (Bld) [Pure # fraction] 0.1 E9/L Normal 0.0 - 0.2 E9/L [facility] Eosinophils (Bld) [#/Vol] 0.0 E9/L Normal 0.0 - 0.5 E9/L [facility] Eosinophils/100 WBC (Bld) 0.5 % Normal 0.0 - 8.0 % [facility] Erythrocyte distribution width (RBC) [Ratio] 13.9 % Normal 10.9 - 14.2 % [facility] Hematocrit (Bld) [Volume fraction] 37.5 % Normal 34.0 - 46.0 % [facility] Hemoglobin (Bld) [Mass/Vol] 12.8 g/dL Normal 12.0 - 16.0 gm/dL [facility] Lymphocytes (Bld) [#/Vol] 0.8 E9/L Low 1.0 - 4.0 E9/L [facility] Lymphocytes/100 WBC (Bld) 9.5 % Low 14.0 - 50.0 % [facility] MCH (RBC) [Entitic mass] 32.2 pg Normal 27. 0 - 34.0 pg [facility] MCHC (RBC) [Mass/Vol] 34.1 g/dL Normal 31.4 - 36.0 gm/dL [facility] MCV (RBC) [Entitic vol] 94.3 fL Normal 80.0 - 100.0 fL [facility] Monocytes (Bld) [#/Vol] 0.7 E9/L Normal 0.2 - 1.0 E9/L [facility] Monocytes/100 WBC (Bld) 8.1 % Normal 4.0 - 14.0 % [facility] Neutrophils (Bld) [#/Vol] 6.7 E9/L Normal 2.0 - 7.5 E9/L [facility] Neutrophils/100 WBC (Bld) 81.1 % High 36.0 - 75.0 % [facility] Platelet mean volume (Bld) [Entitic vol] 8.2 fL Normal 6.4 - 10.8 fL [facility] Platelets (Bld) [#/Vol] 198.0 E9/L Normal 150. 0 - 500.0 E9/L [facility] RBC (Bld) [#/Vol] 4.0 E12/L Low 4.3 - 5.9 E12/L [facility] WBC corrected for nucl RBC Auto (Bld) [#/Vol] 8.2 E9/L Normal 4.0 - 11.0 E9/L [facility] Inpatient Clinical Summaryon 08-10-2024 Inpatient Clinical Summary Inpatient Clinical Summary [place] [id number] Clinical Summary Person Information: Name: CHELSEA CURRY Age: 79 Years : 1945 Sex: Female PCP: JARED HEDRICK MD Marital Status: Race: White Ethnicity: Non- or Language: Mauritian Visit Id: Visit Reason: Vomiting; Nausea; Abdominal pain; VOMITING,ABD PAIN Speciality: Acuity: Enc Type: Inpatient Med Service: Medical Arrival: 08/09/2024 08:27:53 Discharge: Dispo Type: Admitted as IP to this Hosp Address: [address] [place] [phone] Provider Notes: Diagnosis: 1:Pyelonephritis; 2:Hydronephrosis with renal calculous obstruction; 3:Nausea & vomiting; 4:Smoker; 5:Hypertension; 6:Hyperlipidemia; 7:Hypothyroidism; 8:Chronic GERD; 9:Chronic diarrhea; 10:History of pulmonary embolism; 11:On deep vein thrombosis (DVT) prophylaxis Problems Active Urinary tract obstruction (07/30/2024) Vitamin B12 deficiency (non anemic) (04/09/2023) Pulmonary thromboembolism (01/08/2020) Nicotine dependence (07/30/2024) Incontinence (04/09/2023) H/O: migraine (04/25/2024) Cyst of kidney (10/13/2023) Dry eyes (08/28/2023) After-cataract of bilateral eyes (03/03/2022) Acute urinary tract infection (07/30/2024) Proteinuria Ureteral stone with hydronephrosis Smoker Abdominal tenderness Constipation by outlet dysfunction Gross hematuria Lipoma of stomach Stool incontinence S/P cholecystectomy Abdominal cramping Dysphagia Acid reflux Schatzki's ring Fecal incontinence Mejia's esophagus Unintentional weight loss History of colon polyps Chronic diarrhea Urinary incontinence Mixed incontinence UTI (urinary tract infection) Anticoagulated Glucosuria Urinary urgency Urinary frequency Mixed stress and urge incontinence Urinary hesitancy Renal cyst Urinary incontinence without sensory awareness Nocturia Chronic cystitis Other urethral stricture, female Hyperlipidemia Pyelonephritis Kidney stones Hypothyroidism Hypertension Diabetes Osteoarthritis Smoking Status: Never Smoker Functional Status: Sensory Deficits: History of Falls: Mobility Assistance Prior to Admission: Independent ADLs: Independent Current Level of Assistance for Self-Care/Mobility: Cognitive Status: Oriented x 3 Allergies codeine (Nausea) iodinated radiocontrast dyes (Nausea) Demerol (hyper) Nubain (rash) penicillins (rash) Phenergan (hives) Pyridium (Nausea) sulfa drugs (Rash) tobramycin (Nausea) ciprofloxacin (Unknown) meperidine (Unknown) moxifloxacin (Unknown) potassium citrate (Unknown) promethazine (AOF) protamine (Unknown) shellfish (Unknown) telithromycin (Unknown) Ketek (Unknown) Measurements: Height: 165 cm Weight: 66.7 kg Blood Pressure: 121 mmHg / 56 mmHg BMI: 23.29 kg/m2 Procedures MULTISECTION LIMITED^WO CONTRAST:FIND:PT:ABDOMEN: DOC:CT (07/30/2024) Esophagogastroduodenoscop y (02/23/2024) Immunizations No Immunizations Documented This Visit Final Med List: acetaminophen (acetaminophen 325 mg Tab) 2 Tablets By Mouth every 8 hours. acetaminophen (acetaminophen 325 mg Tab) 2 Tablets By Mouth every 8 hours as needed Pain. cefdinir (cefdinir 300 mg Cap) 1 Capsules By Mouth every 12 hours for 5 Days. Refills: 0. cholecalciferol (Vitamin D3) 50 Microgram By Mouth every day. citalopram 10 Milligram By Mouth every day. docusate (Colace) 20 Milligram By Mouth every day. hydrochlorothiazide (hydrochlorothiazide 25 mg Tab) 1 Tablets By Mouth every day. May resume on 08/11. levothyroxine 88 Microgram By Mouth every day. linaclotide (Linzess 145 mcg oral capsule) 1 Capsules By Mouth every day. Refills: 4. mirtazapine 15 Milligram By Mouth once a day (at bedtime). multivitamin with minerals (PreserVision AREDS) pantoprazole (Pantoprazole [address] Tab) 1 Tablets By Mouth every day for 90 Days. Refills: 2. polyethylene glycol 3350 17 Gram By Mouth every day. rivaroxaban (Xarelto 20 mg oral tablet) 1 Tablets By Mouth every day. semaglutide (Rybelsus 14 mg oral tablet) 14 Milligram By Mouth every day. simvastatin 20 mg Oral Monday, Monday, Monday. tamsulosin (tamsulosin 0.4 mg Cap) 1 Capsules By Mouth at bedtime for 7 [address] Discuss refilling with Dr Eldridge at your procedure visit with him.. Refills: 0. Care Team Members: Attending Physician: Cheryl SILVER, Mart Canales Consulting Physician: Juan Alberto SMITH MD Referring Physician: Follow up: With: Address: When: Rashida ELDRIDGE [address] [place] [address], [place] [address] Business (1) Comments: Keep scheduled appointment for outpt. procedure With: Address: When: [address], [address] [place] [address] Business (1) Within 2 to 4 da (more content not included)... [facility] Inpatient Patient Summaryon 08-10-2024 Inpatient Patient Summary Inpatient Patient Summary CHELSEA CURRY :1945 Visit Date:08/09/2024 Inpatient Discharge Instructions Your Care Team Admitting Physician - Cheryl SILVER, Mart Canales Consulting Physician - PRINCESS SILVER, Juan Alberto De Jesus Reason for Your Visit abdominal pain, kidney stone Your Diagnosis Pyelonephritis Hydronephrosis with renal calculous obstruction, Hydronephrosis with ureteral calculus Nausea & vomiting Smoker Hypertension Hyperlipidemia Hypothyroidism Chronic GERD Chronic diarrhea History of pulmonary embolism On deep vein thrombosis (DVT) prophylaxis Abdominal pain Kidney stones Nausea Vomiting Tests Performed Blood Culture Charcoal -- Results Pending -- Calculi Analysis Urinary -- Results Pending -- Urine Culture -- Results Pending -- CT Abdomen/Pelvis w/o Contrast Please visit your patient portal for your results or contact your primary care physician. This Is Your Medications List acetaminophen (acetaminophen 325 mg Tab) acetaminophen (acetaminophen 325 mg Tab) cefdinir (cefdinir 300 mg Cap) cholecalciferol (Vitamin D3) citalopram docusate (Colace) hydrochlorothiazide (hydrochlorothiazide 25 mg Tab) levothyroxine linaclotide (Linzess 145 mcg oral capsule) mirtazapine multivitamin with minerals (PreserVision AREDS) pantoprazole (Pantoprazole [address] Tab) polyethylene glycol 3350 rivaroxaban (Xarelto 20 mg oral tablet) semaglutide (Rybelsus 14 mg oral tablet) simvastatin tamsulosin (tamsulosin 0.4 mg Cap) Procedure History Cystoscopy (07/30/2024), MULTISECTION LIMITED^WO CONTRAST:FIND:PT:ABDOMEN: DOC:CT (07/30/2024), Esophagogastroduodenoscop y (02/23/2024), Colonoscopy (01/30/2024), Esophagogastroduodenoscop y (01/30/2024), Colonoscopy (01/13/2017), [...] and adenoidectomy) postoperative education. Discharge Vitals Temperature (Oral) 36.8 ?C Heart Rate (Monitored) 78 Respiratory Rate 20 Blood Pressure 121/56 Height 165 cm Weight 66.7 kg BMI 23.29 What to do next Instructions From Your Doctor Event Name Event Result Discharge Activity Ambulate as tolerated, Activity as tolerated Discharge Restrictions No restrictions Discharge Diet(s) Regular, Fat Modified- Low cholesterol, Low Sodium- 2000 mg Pending Diagnostic Test Results Urine culture, Blood culture, Other: Stone analysis Discharge Instructions Keep you pending procedure appt with urology and follow all instructions they gave you for pre-procedure medicationsCall PCP on monday for final urine and blood culture resultsFollow up appts as written Previously Scheduled Follow-Up Appointments 2023 8:30 AM EDT With: Where: [facility] Monday 2:40 PM EST With: ÁNGELA JUAREZ PA-C Where: [facility] [address] [place] [address] [place] [address]- New Follow Up Appointments after Discharge Follow Up with Rashida ELDRIDGE When: Comments: Keep scheduled appointment for outpt. procedure Where: [address] [facility] [address]- Business (1) Follow Up with JARED HEDRICK When: Within 2 to 4 days Where: [address] [facility] [address] [place] [address]- Business (1) Follow Up with Bob De Jesus When: Where: [address] [place] [phone] Business (1) Medications What How Much When Why Instructions Next Dose New acetaminophen (acetaminophen 325 mg Tab) 2 Tablets By Mouth Every 8 hours 08/10/24 1pm New acetaminophen (acetaminophen 325 mg Tab (more content not included)... [facility] Inpatient Patient Summary Inpatient Patient Summary [address] [address] Patient Discharge Instructions PERSON INFORMATION Name: CHELSEA CURRY Date of : 1945 Current Date: 08/10/2024 09:52:30 PHYSICIANS Admitting Physician: Cheryl SILVER, Mart Canales Primary Care Physician: FLORIDALMA SILVER, JARED Concepcion PCP Comment: Discharge Diagnosis: 1:Pyelonephritis; 2:Hydronephrosis with renal calculous obstruction; 3:Nausea & vomiting; 4:Smoker; 5:Hypertension; 6:Hyperlipidemia; 7:Hypothyroidism; 8:Chronic GERD; 9:Chronic diarrhea; 10:History of pulmonary embolism; 11:On deep vein thrombosis (DVT) prophylaxis Condition at Discharge: Stable CHELSEA CURRY has been given the following list of follow-up instructions, prescriptions, and patient education materials: PATIENT FOLLOW-UP INFORMATION Diet: Regular, Fat Modified- Low cholesterol, Low Sodium- 2000 mg Discharge Activity: Ambulate as tolerated, Activity as tolerated Discharge Restrictions: No restrictions Wound Care Instructions: Remove Your Dressing In Days Call Your Doctor For: IF UNABLE TO CONTACT YOUR PHYSICIAN AND YOU FEEL IT IS AN EMERGENCY, GO TO THE NEAREST EMERGENCY ROOM OR CALL 911 Home Treatment: Devices/Equipment: None Special Services: Additional Instructions: Keep you pending procedure appt with urology and follow all instructions they gave you for pre-procedure medications Call PCP on monday for final urine and blood culture results Follow up appts as written Primary Care Physician to provide the following pending test results: Urine culture, Blood culture, Other: Stone analysis Follow up: With: Address: When: Rashida ELDRIDGE [address] [place] [address], [place] [address] Business (1) Comments: Keep scheduled appointment for outpt. procedure With: Address: When: JARED [address], [address] [place] [phone] Business (1) Within 2 to 4 days With: Address: When: Bob De Jesus [address] [place], [place] [phone] Business (1) In the event that this physician does not participate in your insurance network, please consult with your insurance company to find a nearby participating provider. Type Location Start Finish State Secured Appointment Type Secured Location 08/15/2024 8:30 AM 08/15/2024 9:45 AM Confirmed URO Office Visit [facility] LIYAH Saleh 09/10/2024 2:40 PM 09/10/2024 3:00 PM Confirmed Comment: PATRICIO Ch LINDA L, have received the attached patient education materials/instructions and have verbalized understanding: Patient Signature ____ Date Clinican/Nurse Signature Date HERE ARE THE MEDICATION CHANGES THAT OCCURRED DURING YOUR HOSPITAL STAY New Medications [id number], [address] [place] [id number], [phone] cefdinir (cefdinir 300 mg Cap) 1 Capsules By Mouth every 12 hours for 5 Days. Refills: 0. Last Dose: Next Dose: tamsulosin (tamsulosin 0.4 mg Cap) 1 Capsules By Mouth at bedtime for [address]. Discuss refilling with Dr Eldridge at your procedure visit with him.. Refills: 0. Last Dose: Next Dose: Other Medications acetaminophen (acetaminophen 325 mg Tab) 2 Tablets By Mouth every 8 hours. Last Dose: Next Dose: acetaminophen (acetaminophen 325 mg Tab) 2 Tablets By Mouth every 8 hours as needed Pain. Last Dose: Next Dose: Medications to Continue Taking That Have Changed Other Medications START: hydrochlorothiazide (hydrochlorothiazide 25 mg Tab) 1 Tablets By Mouth every day. May resume on 08/11. Last Dose: Next Dose: STOP: hydrochlorothiazide (hydrochlorothiazide 25 mg Tab) 1 Tablets By Mouth every day. Medications to Continue with No Changes Other Medications cholecalciferol (Vitamin D3) 50 Microgram By Mouth every day. Last Dose: Next Dose: citalopram 10 Milligram By Mouth every day. Last Dose: Next Dose: docusate (Colace) 20 Milligram By Mouth every day. Last Dose: Next Dose: levothyroxine 88 Microgram By Mouth every day. Last Dose: Next Dose: linaclotide (Linzess 145 mcg oral capsule) 1 Capsules By Mouth every day. Refills: 4. Last Dose: Next Dose: mirtazapine 15 Milligram By Mouth once a day (at bedtime). Last Dose: Next Dose: multivitamin with minerals (PreserVision AREDS) Last Dose: Next Dose: pantoprazole (Pantoprazole [address] Sosa) (more content not included)... [facility] Interdisciplinary Note - Taylor kenyatta 08-10-2024 Interdisciplinary Note - Nursing Interdisciplinary Note - Nursing This RN spoke with Dr. Smith. Dr. Smith made aware that patient passed kidney stone this morning. Dr. Smith orders that patient will be able to eat breakfast and NPO order can be cancelled. Dr. Smith reports that hospitalist may discharge patient home today. Dr. Smith reports that he will call surgery team to cancel this morning. Normal [facility] Interdisciplinary Note - Nursing Interdisciplinary Note - Nursing Patient up to bathroom and passed stone this morning. Dr. Smith has been paged. Waiting for call back at this time. [facility] Magnesiumon 08-10-2024 Magnesium [Mass/Vol] 1.8 mg/dL Normal 1.3-2.4 [facility] Comment on above: Performed By: #### 2 [id number] #### [facility] [address] [place] [address] eGFRon 08-10-2024 eGFR 74 mL/min/1.73 m2 Normal >=59 [facility] Comment on above: Performed By: #### 1 [id number] #### [facility] [address] [place] [address] BMPon 08-09-2024 Anion gap [Moles/Vol] 16 mmol/L Normal 6-16 [facility] Comment on above: Performed By: #### 2 [id number] #### [facility] [address] [place] [address] Calcium [Mass/Vol] 9.7 mg/dL Normal 8.9-11.1 [facility] Comment on above: Performed By: #### 2 [id number] #### [facility] [address] [place] [address] Chloride [Moles/Vol] 102 mmol/L Normal 101-111 [facility] Comment on above: Performed By: #### 2 [id number] #### [facility] [address] [place] [address] CO2 [Moles/Vol] 24 mmol/L Normal 21-31 [facility] Comment on above: Performed By: #### 2 [id number] #### [facility] [address] [place] [address] Creatinine [Mass/Vol] 0.9 mg/dL Normal 0.5-1.3 [facility] Comment on above: Performed By: #### 2 212698 #### [facility] [address] [place] [address] Glucose [Mass/Vol] 243 mg/dL High 55-199 [facility] Comment on above: Performed By: #### 2 [id number] #### [facility] [address] [place] [address] Potassium [Moles/Vol] 3.6 mmol/L Normal 3.5-5.3 [facility] Comment on above: Performed By: #### 2 [id number] #### [facility] [address] [place] [address] Sodium [Moles/Vol] 138 mmol/L Normal 135-145 [facility] Comment on above: Performed By: #### 2 136516 #### [facility] [address] [place] [address] Urea nitrogen [Mass/Vol] 20 mg/dL Normal 5-21 [facility] Comment on above: Performed By: #### 2 [id number] #### [facility] [address] [place] [address] Urea nitrogen/Creatinine [Mass ratio] 22 No Units High 10-20 [facility] Comment on above: Performed By: #### 2 [id number] #### [facility] [address] [place] [address] CBC w/ Auto Diffon 4 Basophils/100 WBC (Bld) 0.7 % Normal 0.0-2.0 [facility] Comment on above: Performed By: #### 2 [id number] #### [facility] [address] [place] [address] Basophils/Leukocytes Auto (Bld) [Pure # fraction] 0.1 E9/L Normal 0.0-0.2 [facility] Comment on above: Performed By: #### 2 [id number] #### [facility] [address] [place] [address] Eosinophils (Bld) [#/Vol] 0.0 E9/L Normal 0.0-0.5 [facility] Comment on above: Performed By: #### 2 [id number] #### [facility] [address] [place] [address] Eosinophils/100 WBC (Bld) 0.1 % Normal 0.0-8.0 [facility] Comment on above: Performed By: #### 2 [id number] #### [facility] [address] [place] [address] Erythrocyte distribution width (RBC) [Ratio] 13.6 % Normal 10.9-14.2 [facility] Comment on above: Performed By: #### 2 [id number] #### [facility] [address] [place] [address] Hematocrit (Bld) [Volume fraction] 42.1 % Normal 34.0-46.0 [facility] Comment on above: Performed By: #### 2 [id number] #### [facility] [address] [place] [address] Hemoglobin (Bld) [Mass/Vol] 14.7 g/dL Normal 12.0-16.0 [facility] Comment on above: Performed By: #### 2 [id number] #### [facility] [address] [place] [address] Lymphocytes (Bld) [#/Vol] 0.6 E9/L Low 1.0-4.0 [facility] Comment on above: Performed By: #### 2 [id number] #### [facility] [address] [place] [address] Lymphocytes/100 WBC (Bld) 6.6 % Low 14.0-50.0 [facility] Comment on above: Performed By: #### 2 [id number] #### [facility] [address] [place] [address] MCH (RBC) [Entitic mass] 32.7 pg Normal 27.0-34.0 [facility] Comment on above: Performed By: #### 2 [id number] #### [facility] [address] [place] [address] MCHC (RBC) [Mass/Vol] 34.9 g/dL Normal 31.4-36.0 [facility] Comment on above: Performed By: #### 2 [id number] #### [facility] [address] [place] [address] MCV (RBC) [Entitic vol] 93.9 fL Normal 80.0-100.0 [facility] Comment on above: Performed By: #### 2 [id number] #### [facility] [address] [place] [address] Monocytes (Bld) [#/Vol] 0.4 E9/L Normal 0.2-1.0 [facility] Comment on above: Performed By: #### 2 699023 #### [facility] [address] [place] [address] Neutrophils (Bld) [#/Vol] 8.5 E9/L High 2.0-7.5 [facility] Comment on above: Performed By: #### 2 [id number] #### [facility] [address] [place] [address] Neutrophils/100 WBC (Bld) 88.8 % High 36.0-75.0 [facility] Comment on above: Performed By: #### 2 [id number] #### [facility] [address] [place] [address] Platelet mean volume (Bld) [Entitic vol] 8.1 fL Normal 6.4-10.8 [facility] Comment on above: Performed By: #### 2 536365 #### [facility] [address] [place] [address] Platelets (Bld) [#/Vol] 261.0 E9/L Normal 150. 0-500. 0 [facility] Comment on above: Performed By: #### 2 [id number] #### [facility] [address] [place] [address] RBC (Bld) [#/Vol] 4.5 E12/L Normal 4.3-5.9 [facility] Comment on above: Performed By: #### [id number] #### [facility] [address] [place] [address] WBC corrected for nucl RBC Auto (Bld) [#/Vol] 9.5 E9/L Normal 4.0-11.0 [facility] Comment on above: Performed By: #### 2 [id number] #### [facility] [address] [place] [address] CHEMISTRYOrdered By: SYSTEM SYSTEM on 08-09-2024 Lactic Acid Lvl 2.0 mmol/L Normal 0.5 - 2.2 mmol/L Remisol Chem Lactic Acid Lvl 2.5 mmol/L High 0.5 - 2.2 mmol/L Remisol Chem Albumin [Mass/Vol] 4.4 g/dL Normal 3.3 - 5.0 gm/dL Remisol Chem Albumin/Globulin [Mass ratio] 1.8 {ratio} Normal 1.1 - 2.2 Remisol Chem ALP [Catalytic activity/Vol] 57 [iU]/d Normal 21 - 98 Int._Unit/ L Remisol Chem ALT No additional P-5'-P [Catalytic activity/Vol] 23 [iU]/d Normal 6 - 46 Int._Unit/ L Remisol Chem Anion gap [Moles/Vol] 16 mmol/L Normal 6 - 16 mEq/L Remisol Chem AST [Catalytic activity/Vol] 17 [iU]/d Normal 5 - 43 Int._Unit/ L Remisol Chem Bilirubin [Mass/Vol] 0.9 mg/dL Normal 0.0 - 1 .1 mg/dL Remisol Chem Bilirubin.direct [Mass/Vol] 0.1 mg/dL Normal 0.0 - 0.4 mg/dL Remisol Chem Bilirubin.indirect [Mass or moles/Vol] 0.8 mg/dL Normal 0.1 - 0.9 mg/dL Remisol Chem Calcium [Mass/Vol] 9.7 mg/dL Normal 8.9 - 11. 1 mg/dL Remisol Chem Chloride [Moles/Vol] 102 mmol/L Normal 101 - 1 11 mmol/L Remisol Chem CO2 [Moles/Vol] 24 mmol/L Normal 21 - 31 mmol/L Remisol Chem Creatinine [Mass/Vol] 0.9 mg/dL Normal 0.5 - 1.3 mg/dL Remisol Chem eGFR 64 mL/min/1.73 m2 Normal >=59mL/min /1.73 m2 Remisol Chem Globulin (S) [Mass/Vol] 2.5 g/dL Normal 1.4 - 4.0 gm/dL Remisol Chem Glucose [Mass/Vol] 243 mg/dL High 55 - 199 mg/dL Remisol Chem Lipase [Catalytic activity/Vol] 24 U/L Normal 13 - 58 unit/L Remisol Chem Potassium [Moles/Vol] 3.6 mmol/L Normal 3.5 - 5.3 mmol/L Remisol Chem Protein [Mass/Vol] 6.9 g/dL Normal 6.0 - 7.8 gm/dL Remisol Chem Sodium [Moles/Vol] 138 mmol/L Normal 135 - 145 mmol/L Remisol Chem Urea nitrogen [Mass/Vol] 20 mg/dL Normal 5 - 21 mg/dL Remisol Chem Urea nitrogen/Creatinine [Mass ratio] 22 mg/mg High 10 - [address] Abdomen/Pelvis w/o Contra ston 08-09-2024 CT Abdomen/Pelvis w/o Contrast Exam Date/Time: 08/09/2024 09:20 EDT Reason for Exam: ABDOMINAL PAIN, ACUTE, NONLOCALIZED;Other (please specify) Report IMPRESSION: 4-5 mm mild to moderately obstructing calculus at the RIGHT ureterovesicular junction. Interval placement of LEFT ureteral stent with possible small calculus adjacent to the distal stent and interval improved left hydronephrosis. Additional small nonobstructing bilateral renal calculi. EXAMINATION: CT Abdomen/Pelvis w/o Contrast HISTORY: Right-sided abdominal pain. Nausea and vomiting. History of kidney stones. Hematuria. TECHNIQUE: Non-IV contrast imaging of the abdomen and pelvis was performed using standard technique, scanning from just above the dome of the diaphragm to the symphysis pubis. Unenhanced imaging is limited for the evaluation of some intra-abdominal and pelvic pathology. Unless otherwise stated, incidental findings in this report do not require further routine follow-up imaging. All CT scans at this facility use dose modulation, iterative reconstruction, and/or weight based dosing when appropriate to reduce radiation dose to as low as reasonably achievable. COMPARISON: CT 07/30/2024. Fluoroscopy images 07/30/2024. RESULT: Abdomen / Pelvis: Liver: Unremarkable. Biliary: Cholecystectomy. Unchanged extrahepatic bile duct dilation likely secondary to the prior cholecystectomy. Pancreas: Unremarkable. Spleen: No splenomegaly. Adrenals: No mass. Report Kidneys and urinary tract: 4-5 mm calculus within the right distal ureter at the ureterovesicular junction, with associated upstream mild to moderate right hydroureteronephrosis and right perinephric stranding, findings new from 07/30/2024, with this calculus previously present within the right kidney on the recent prior study. Interval placement of left ureteral stent, with grossly appropriate positioning and overall similar to the recent fluoroscopic images. Possible small calculus adjacent to the distal stent. Interval improved left hydronephrosis. Few additional bilateral renal calculi with the largest on the left measuring around 4 mm. No suspicious renal lesions. Simple appearing cysts and peripelvic cysts, unchanged. GI Tract: No bowel dilation or suspicious wall thickening. Portions of the colon are collapsed and not well evaluated. No evidence for diverticulitis. No evidence for appendicitis. Endoscopy clip near the gastroesophageal junction, unchanged. Small hiatal hernia. Lymph Nodes: No lymphadenopathy. Mesentery/peritoneum/retr operitoneum: Right perinephric stranding. No loculated collection. Vasculature: Mild arterial atherosclerotic disease without aneurysm. Calcified splenic artery aneurysms, unchanged. Pelvis: Urinary tract findings as above. Bladder decompressed. Hysterectomy. No significant free fluid. Bones/Soft Tissues: No acute osseous findings. Degenerative changes, similar to prior. Postsurgical changes lower lumbar spine, similar to prior. Lower thorax: Unremarkable. Ordering Provider: Salvador Peraza FINAL REPORT Dictated: 08/09/2024 9:36 am Evert Fisher MD. Signed (Electronic Signature): 08/09/2024 9:36 am Signed by: Evert Fisher MD Transcribed by: WERNER Technologist: CHA Technical Comments Rectal Contrast Given? No Oral contrast amount in ml's: 0 Normal [facility] ED Clinical Summaryon 2023 ED Clinical Summary ED Clinical Summary [address] [address] ED Clinical Summary Person Information Name: CHELSEA CURRY [place] Age: 79 Years : 1945 Sex: Female Language: Mauritian PCP: JARED HEDRICK MD Marital Status: Visit Id: Visit Reason: Vomiting; Nausea; Abdominal pain; VOMITING,ABD PAIN Speciality: Acuity: 3 Enc Type: Inpatient Med Service: Medical Arrival: 08/09/2024 08:27:53 Discharge: LOS: 000 05:58 Checkin: 08/09/2024 08:27:53 Checkout: 08/09/2024 14:25:53 Dispo Type: Admitted as IP to this [facility] EVENTS: Event Name Event Status Request Date/Time Start Date/Time Complete Date/Time Arrive Complete 08/09/2024 08:27:53 08/09/2024 08:27:53 08/09/2024 08:27:53 Document Home Meds Request 08/09/2024 08:27:53 Triage Complete 08/09/2024 08:27:53 08/09/2024 08:35:31 08/09/2024 08:35:31 Bed Assign Complete 08/09/2024 08:30:14 08/09/2024 08:30:14 08/09/2024 08:30:14 Dr Exam Complete 08/09/2024 08:30:14 08/09/2024 08:30:39 08/09/2024 08:30:39 RN Exam Complete 08/09/2024 08:30:14 08/09/2024 08:39:22 08/09/2024 08:39:22 Registration Complete 08/09/2024 08:30:39 08/09/2024 08:50:51 08/09/2024 08:50:51 Dr Exam Complete 08/09/2024 08:36:18 08/09/2024 08:36:18 08/09/2024 08:36:18 CT Complete 08/09/2024 08:46:48 08/09/2024 08:57:38 08/09/2024 09:20:55 Pending Labs Complete 08/09/2024 08:46:48 08/09/2024 10:11:24 Lab Complete 08/09/2024 08:46:48 08/09/2024 09:20:12 Meds Admin Complete 08/09/2024 08:46:48 08/09/2024 09:21:31 Meds Admin Complete 08/09/2024 08:47:43 08/09/2024 09:21:32 Patient Care Request 08/09/2024 08:49:48 Pending Labs Complete 08/09/2024 08:50:12 08/09/2024 08:50:12 08/09/2024 09:20:12 Lab Complete 08/09/2024 08:50:12 08/09/2024 08:50:12 08/09/2024 09:20:12 Reg Complete Request 08/09/2024 08:50:51 Reg Bed Request Complete 08/09/2024 08:50:52 08/09/2024 08:50:52 08/09/2024 08:50:52 Pending Labs Complete 08/09/2024 08:53:23 08/09/2024 08:53:23 08/09/2024 08:53:24 Pending Labs Inlab 08/09/2024 10:11:24 08/09/2024 10:11:24 Lab Inlab 08/09/2024 10:11:24 08/09/2024 10:11:24 Meds Admin Complete 08/09/2024 12:06:14 08/09/2024 12:06:49 Meds Admin Complete 08/09/2024 12:21:54 08/09/2024 12:33:30 Patient Care Request 08/09/2024 12:30:58 NPO Request 08/09/2024 12:31:08 Consult Request 08/09/2024 12:31:39 Hospitalist Consult Request 08/09/2024 12:31:39 Meds Admin Cancel 08/09/2024 12:49:05 08/09/2024 13:53:26 Pending Labs Collected 08/09/2024 12:49:05 Lab Collected 08/09/2024 12:49:05 Patient Care Request 08/09/2024 13:37:15 Meds Admin Request 08/09/2024 13:37:15 Pending Labs Request 08/09/2024 13:37:15 Lab Request 08/09/2024 13:37:15 RT Request 08/09/2024 13:37:15 RT Tx/ABG Request 08/09/2024 13:37:15 Consult Request 08/09/2024 13:43:49 Admit Request 08/09/2024 13:45:26 Patient Care Request 08/09/2024 13:45:28 Patient Care Request 08/09/2024 13:45:28 Patient Care Request 08/09/2024 13:45:28 Patient Care Request 08/09/2024 13:45:28 Medicare Form Complete 08/09/2024 13:45:29 08/09/2024 14:15:22 Patient Care Request 08/09/2024 13:45:29 Patient Care Request 08/09/2024 13:45:30 Meds Admin Request 08/09/2024 13:47:17 Pending Labs Request 08/09/2024 13:51:56 Lab Request 08/09/2024 13:51:56 Meds Admin Request 08/09/2024 13:53:26 Meds Admin Request 08/09/2024 13:53:59 Meds Admin Request 08/09/2024 13:56:29 Meds Admin Request 08/09/2024 13:56:58 Pending Labs Request 08/09/2024 14:11:46 Lab Request 08/09/2024 14:11:46 Meds Admin Request 08/09/2024 14:11:46 ADDRESS: [address] [place] [id number] PHYS DOC NOTES: MEDICAL INFORMATION: Prescriptions Given: Medications to Continue with No Changes Other Medications bifidobacterium infantis (Align 4 mg oral capsule) 1 Capsules By Mouth every day. Refills: 4. cholecalciferol (Vitamin D3) 50 Microgram By Mouth every day. citalopram 10 Milligram By Mouth every day. hydrochlorothiazide (hydrochlorothiazide 25 mg Tab) 1 Tablets By Mouth every day. levothyroxine 88 Microgram By Mouth every day. linaclotide (Linzess 145 mcg oral capsule) 1 Capsules By Mouth every day. Refills: 4. mirtazapine 15 Milligram By Mouth once a day (at bedtime). multivitamin with minerals (PreserVision AREDS) pantoprazole (Pantoprazole [address] Tab) 1 Tablets By Mouth every day for 90 Days. Refills: 2. rivaroxaban (Xarelto 20 mg oral tablet) 1 Tablets By Mouth once a day (in the evening). semaglutide (Rybelsus 14 mg oral tablet) By Mouth every day. simvastatin 20 mg Oral Monday, Monday, Monday. trospium (trospium 20 mg oral tablet) 1 Tablets By Mouth every day for 30 Days. take in morning on an empty stomach. Refills: 11. PATIENT EDUCATION INFORMATION: Instructions: Follow up: DIAGNOSIS: 1:Pyelonephritis; 2:Hydronephrosis with renal calculous obstruction; 3: (more content not included)... Normal [facility] ED Note-Physicianon 08-09-20 ED Note-Physician ED Note-Physician Basic Information Time Seen: Stu HERNANDEZ, Salvador Smith 08/09/2024 08:30 Chief Complaint patient presents with RLQ abdominal pain that started yesterday with nausea and vomiting. dx with kidney stone on L side- saw urology yesterday. hematuria and dysuria since dx History of Present Illness Patient is an 79-year-old female with known left-sided kidney stone scheduled for a lithotripsy of the stone next with Dr. Eldridge that presents today for evaluation of her new onset right flank and right lower quadrant abdominal pain that started yesterday. Patient states that she was seen in her urology visit yesterday and was doing fine. Upon going home she started to develop worsening right sided pain with nausea and vomiting. She has been unable to keep anything down. She does note gross hematuria as well as dysuria since diagnosis of the left-sided kidney stone. She denies any fevers or bodyaches but endorses chills over the last 24 hours. Review of Systems No other aggravating or relieving factors no other associated symptoms no other prior treatments or complaints. Family: Reviewed and noncontributory Social: lives at home Review of systems negative unless otherwise specified in the HPI. Physical Exam Vitals & Measurements T: 36.7 ?C(Oral) HR: 85(Peripheral) RR: 20 BP: 135/113 SpO2: 98% HT: 165 cm WT: 63.4 kg BMI: 23.29 General: The patient appears well and in no apparent distress. She does intermittently vomit throughout the exam. Skin: Warm, dry, no pallor noted. Head: Normocephalic, atraumatic Neck: No JVD Eye: PERRLA, EOMI ENT: Moist mucus membranes Cardiovascular: Regular rate and rhythm. Normal peripheral perfusion Respiratory: CTA bilaterally. No respiratory distress no accessory muscle use no obvious audible wheezing Chest Wall: no deformity Musculoskeletal: normal ROM, no deformity, no swelling GI: Soft no obvious distention. No rebound or rigidity. No guarding. Right sided flank and right upper and right lower quadrant abdominal tenderness. Neurological: A&O moves all extremities equal strength and symmetry Psychiatric: Cooperative and appropriate Medical Decision Making Patient is an 79-year-old female with known left-sided kidney stone scheduled for lithotripsy of the stone next with Dr. Eldridge that presents today for evaluation of her new onset right flank and right-sided abdominal pain that started yesterday. Patient states she was seen in her urology visit yesterday and was doing fine but went home and developed new onset right-sided pain. She has had associated nausea and vomiting and has been unable to keep anything down. On exam the patient is afebrile nontoxic-appearing. She does intermittently vomit throughout the exam. She has right-sided flank and right upper and right lower quadrant abdominal tenderness. Labs are WNL including WBC. UA does demonstrate evidence of UTI with positive leuks and WBCs. CT of the abdomen and pelvis demonstrates a 4 to 5 mm mild to moderately obstructing calculus at the right ureterovesicular junction with right sided hydroureteronephrosis and perinephric stranding interval placement of left ureteral stent with possible small calculus adjacent to distal stent and interval improved left hydronephrosis. Patient was given a dose of morphine and Zofran here in the ED with improvement of her symptoms. I called and spoke with Dr. Smith urology who recommended admission for lithotripsy on the left side with IV hydration. Will make her n.p.o. after midnight and we will have her strain all urine in case she passes the stone. Fluids were initiated in the ED and will be maintained throughout her admission. She was given a dose of Rocephin 1 g here in the ED. I spoke with the hospitalist who accepted the patient for admission for further evaluation and management with Dr. Smith consult. Return to ED precautions were reviewed with the patient at length. Assessment/Plan 1. Kidney stones (N20.0: Calculus of kidney) 2. Abdominal pain (R10.9: Unspecified abdominal pain) 3. Nausea & vomiting (R11.2: Nausea with vomiting, unspecified) 4. UTI (urinary tract infection) (N39.0: Urinary tract infection, site not specified) Orders: ceftriaxone + Sodium Chloride 0.9% intravenous solution 50 mL, 1,000 mg = 1 EA, IV Piggyback, Once, Stop date 08/09/24 12:21:00 EDT, STAT, Start date 08/09/24 12:21:00 EDT, 100 mL/hr, Infuse over 30 minute(s), 08/09/24 12:21:00 EDT morphine, 2 mg = 1 mL, Injection, IV Push, Once, Stop date 08/09/24 8:47:00 EDT, STAT, Start date 08/09/24 8:47:00 EDT, 08/09/24 8:47:00 EDT ondansetron, 4 mg = 2 mL, Injection, IV Push, Once, Stop date 08/09/24 12:06:00 EDT, STAT, Start date 08/09/24 12:06:00 EDT, 08/09/24 12:06:00 EDT ondansetron, 4 mg = 2 mL, Injection, IV Push, Once, Stop date 08/09/24 8:46:00 EDT, STAT, Start date 08/09/24 8:46:00 EDT, 08/09/24 8:46:00 EDT Sodium Chloride 0.9% intravenous solution, 1,000 mL, Soln-IV, IV, Once, Stop date 08/09/24 12:21 (more content not included)... Normal [facility] Comment on above: Result Comment: Elec tronically Signed By: Salvador Peraza PA-C\.br\Date and Time Signed: 08/09/24 13:31 EDT\.br\Electronically Co-Signed By: Lisa Dumont M.D.\.br\Date and Time Co-Signed: 08/09/24 15:01 EDT ED Patient Education Noteon 08-09-2024 ED Patient Education Note ED Patient Education Note Normal [facility] ED Patient Summaryon ED Patient Summary ED Patient Summary [facility] [address] [place], [place] [address] Patient Discharge Instructions Person Information Name: CHELSEA CURRY Age: 79 Years Arrival Date: 08/09/2024 08:27:53 Discharge Diagnosis: 1:Pyelonephritis; 2:Hydronephrosis with renal calculous obstruction; 3:Nausea & vomiting; 4:Smoker; 5:Hypertension; 6:Hyperlipidemia; 7:Hypothyroidism; 8:Chronic GERD; 9:Chronic diarrhea; 10:On deep vein thrombosis (DVT) prophylaxis Primary Care Physician: JARED HEDRICK MD Provider Information Primary Provider: Lisa Dumont M.D. Advanced Liquor Rectifier:Salvador Peraza PA-C The exam and treatment you received in the Emergency Department were for an urgent problem and are not intended as complete care. It is important that you follow up with a doctor, nurse practitioner, or physician?s surgery assistant for ongoing care. If your symptoms become worse or you do not improve as expected and you are unable to reach your usual health care provider, you should return to the Emergency Department. We are available 24 hours a day. CHELSEA CURRY has been given the following list of patient education materials, prescriptions and follow-up instructions: Follow-up Instructions: In the event that this physician does not participate in your insurance network, please consult with your insurance company to find a nearby participating provider. Patient Education Materials: A MESSAGE TO ALL PATIENTS REGARDING OPIOIDS PRESCRIPTION OPIOIDS: WHAT YOU NEED TO KNOW Prescription opioids can be used to help relieve dxrufepw-ju-erodch pain and are often prescribed following a surgery or injury, or for certain health conditions. These medications can be an important part of the treatment but also come with serious risks. It is important to work with your healthcare provider to make sure you are getting the safest, most effective care. WHAT ARE THE RISKS AND SIDE EFFECTS OF OPIOID USE? Prescription opioids carry serious risks of addiction and overdose, especially with prolonged use. An opioid overdose, often marked by slowed breathing, can cause sudden . The use of prescription opioids can have a number of side effects as well, even when taken as directed: ? Tolerance?meaning you might need to take more of the medication for the same pain relief ? Physical dependence?meaning you have symptoms of withdrawal when a medication is stopped ? Increased sensitivity to pain ? Constipation ? Nausea, vomiting, and dry mouth ? Sleepiness and dizziness ? Confusion ? Depression ? Low levels of testosterone that can result in lower sex drive, energy, and strength ? Itching and sweating RISKS ARE GREATER WITH: ? History of drug misuse, substance use disorder, or overdose ? Mental health conditions (such as depression or anxiety) ? Sleep apnea ? Older age (65 years and older) ? Avoid alcohol while taking prescription opioids. Also, unless specifically advised by your health care provider, medications to avoid include: ? Benzodiazepines (such as Xanax or Valium) ? Muscle relaxants (such as Soma or Flexeril) ? Hypnotics (such as Ambien or Lunesta) ? Other prescription opioids KNOW YOUR OPTIONS Talk to your health care provider about ways to manage your pain that don?t involve prescription opioids. Some of these options may actually work better and have fewer risks and side effects. Options may include: ? Pain relievers such as acetaminophen, ibuprofen, and naproxen ? Some medication that are also used for depression or seizures ? Physical therapy and exercise ? Cognitive behavioral therapy, a psychological, goal-directed approach, in which patients learn how to modify physical, behavioral, and emotional triggers of pain and stress. IF YOU ARE PRESCRIBED OPIOIDS FOR PAIN: ? Never take opioids in greater amounts or more often than prescribed. ? Follow up with your primary health care provider. o Work together to create a plan on how to manage your pain. o Talk about ways to help manage your pain that don?t involve prescription opioids. o Talk about any and all concerns and side effects. ? Help prevent misuse and abuse o Never sell or share prescription opioids. o Never use another person?s prescription opioids. ? Store prescription opioids in a secure place and out of reach of others (this may include visitors, children, friends, and family). ? Safely dispose of unused prescription opioids: Find your community drug take-back program or your pharmacy mail-back program, or flush them down the toilet, following guidance from the Food and Drug Administration (www.fda.gov/Drugs/Resour cesForYou). ? Visit www.cdc.gov/drugoverdose to learn about the risks of opioids abuse and overdose. ? If you believe you may be struggling with addiction, tell your health childcare attendant and ask for guid (more content not included)... [facility] Extra Blue 08-09-2024 Tube Collected Plasma Yes Invalid Interpretation Code [facility] Comment on above: Performed By: #### 1 [id number] #### [facility] [address] [place] [address] HEMATOLOGYOrdered By: Humphrey Ocampo on 08-09-2024 Basophils/100 WBC (Bld) 0.7 % Normal 0.0 - 2.0 % Remisol Heme Basophils/Leukocytes Auto (Bld) [Pure # fraction] 0.1 E9/L Normal 0.0 - 0.2 E9/L Remisol Heme Eosinophils (Bld) [#/Vol] 0.0 E9/L Normal 0.0 - 0.5 E9/L Remisol Heme Eosinophils/100 WBC (Bld) 0.1 % Normal 0.0 - 8.0 % Remisol Heme Erythrocyte distribution width (RBC) [Ratio] 13.6 % Normal 10.9 - 14.2 % Remisol Heme Hematocrit (Bld) [Volume fraction] 42.1 % Normal 34.0 - 46.0 % Remisol Heme Hemoglobin (Bld) [Mass/Vol] 14.7 g/dL Normal 12.0 - 16.0 gm/dL Remisol Heme Lymphocytes (Bld) [#/Vol] 0.6 E9/L Low 1.0 - 4.0 E9/L Remisol Heme Lymphocytes/100 WBC (Bld) 6.6 % Low 14.0 - 50.0 % Remisol Heme MCH (RBC) [Entitic mass] 32.7 pg Normal 27. 0 - 34.0 pg Remisol Heme MCHC (RBC) [Mass/Vol] 34.9 g/dL Normal 31.4 - 36.0 gm/dL Remisol Heme MCV (RBC) [Entitic vol] 93.9 fL Normal 80.0 - 100.0 fL Remisol Heme Monocytes (Bld) [#/Vol] 0.4 E9/L Normal 0.2 - 1.0 E9/L Remisol Heme Monocytes/100 WBC (Bld) 3.8 % Low 4.0 - 14.0 % Remisol Heme Neutrophils (Bld) [#/Vol] 8.5 E9/L High 2.0 - 7.5 E9/L Remisol Heme Neutrophils/100 WBC (Bld) 88.8 % High 36.0 - 75.0 % Remisol Heme Platelet mean volume (Bld) [Entitic vol] 8.1 fL Normal 6.4 - 10.8 fL Remisol Heme Platelets (Bld) [#/Vol] 261.0 E9/L Normal 150. 0 - 500.0 E9/L Remisol Heme RBC (Bld) [#/Vol] 4.5 E12/L Normal 4.3 - 5.9 E12/L Remisol Heme WBC corrected for nucl RBC Auto (Bld) [#/Vol] 9.5 E9/L Normal 4.0 - 11.0 E9/L Remisol Heme Hep Func Panelon 08-09-2024 Albumin [Mass/Vol] 4.4 g/dL Normal 3.3-5.0 [facility] Comment on above: Performed By: #### 2 [id number] #### [facility] [address] [place] [address] Albumin/Globulin (S) [Mass conc ratio] 1.8 Normal 1.1-2.2 [facility] Comment on above: Performed By: #### 2 [id number] #### [facility] [address] [place] [address] ALP [Catalytic activity/Vol] 57 Int._Unit/L Normal 21-98 [facility] Comment on above: Performed By: #### 2 [id number] #### [facility] [address] [place] [address] ALT No additional P-5'-P [Catalytic activity/Vol] 23 Int._Unit/L Normal 6-46 [facility] Comment on above: Performed By: #### 2 [id number] #### [facility] [address] [place] [address] AST [Catalytic activity/Vol] 17 Int._Unit/L Normal 5-43 [facility] Comment on above: Performed By: #### 2 [id number] #### [facility] [address] [place] [address] Bilirubin [Mass/Vol] 0.9 mg/dL Normal 0.0-1.1 [facility] Comment on above: Performed By: #### 2 [id number] #### [facility] [address] [place] [address] Bilirubin.direct [Mass/Vol] 0.1 mg/dL Normal 0.0-0.4 [facility] Comment on above: Performed By: #### 2 [id number] #### [facility] [address] [place] [address] Bilirubin.indirect [Mass or moles/Vol] 0.8 mg/dL Normal 0.1-0.9 [facility] Comment on above: Performed By: #### 2 [id number] #### [facility] [address] [place] [address] Globulin (S) [Mass/Vol] 2.5 g/dL Normal 1.4-4.0 [facility] Comment on above: Performed By: #### 2 [id number] #### [facility] [address] [place] [address] Protein [Mass/Vol] 6.9 g/dL Normal 6.0-7.8 [facility] Comment on above: Performed By: #### 2 [id number] #### [facility] [address] [place], [place] [id number] Laboratory - Microbiology an d Antimicrobial susceptibilityOrdered By: Eli Abdalla on 08-09-2024 Bacteria identified Cx Nom (U) 2,000 cfu/ml Mixed skin contaminants [facility] Lactic Acidon 08-09-2024 Lactic Acid Lvl 2.0 mmol/L Normal 0.5-2.2 [facility] Comment on above: Order Comment: Order added by EKS Rule. (FT_LACTIC_ACID_REFLEX) Adds reflex Lactic Acid 4 hours after initial if result is greater than or equal to 2.0. Performed By: #### 2 [id number] #### [facility] [address] [place] [address] Lactic Acid Lvl 2.5 mmol/L High 0.5-2.2 [facility] Comment on above: Performed By: #### 2 [id number] #### [facility] [address] [place] [address] Lipase Levelon 08-09-2024 Lipase [Catalytic activity/Vol] 24 U/L Normal 13-58 [facility] Comment on above: Performed By: #### 2 [id number] #### [facility] [address] [place] [address] No Panel InformationOrdered By: [facility] on 08-09-2024 Blood Culture Charcoal No growth at 1 da y. Final to follow at 7 days. [facility] Blood Culture Charcoal No growth at 1 da y. Final to follow at 7 days. [facility] UA with Cult Rflxon 08-09-20 24 Bilirubin Ql (U) Negative Normal Negative [facility] Comment on above: Performed By: #### 4 [id number] #### [facility] [address] [place] [address] Clarity (U) Ex.Turbid Abnormal Clear [facility] Comment on above: Performed By: #### 4 [id number] #### [facility] [address] [place] [address] Color (U) Dark-Brown Abnormal Yellow [facility] Comment on above: Result Comment: Micr oscopic readings are only performed on those samples that meet specific criteria set forth by [facility]. Performed By: #### 4 [id number] #### [facility] [address] [place] [address] Epithelial cells.squamous Auto (Urine sed) [#/Area] 5-8 Invalid Interpretation Code [facility] Comment on above: Performed By: #### 4 [id number] #### [facility] [address] [place] [address] Glucose Ql (U) 4+ mg/dL Abnormal Negative [facility] Comment on above: Performed By: #### 4 [id number] #### [facility] [address] [place] [address] Hemoglobin Auto test strip (U) [Mass/Vol] 3+ mg/dL Abnormal Negative [facility] Comment on above: Performed By: #### 4 [id number] #### [facility] [address] [place] [address] Ketones Auto test strip Ql (U) 2+ mg/dL Abnormal Negative [facility] Comment on above: Performed By: #### 4 [id number] #### [facility] [address] [place] [address] Leukocyte esterase Auto test strip Ql (U) 250 Naomi/uL Abnormal Negative [facility] Comment on above: Performed By: #### 4 [id number] #### [facility] [address] [place] [address] Mucus Auto Ql (U) 3+ CD:[id number] Abnormal Negative [facility] Comment on above: Performed By: #### 4 [id number] #### [facility] [address] [place] [address] Nitrite Auto test strip Ql (U) Negative Normal Negative [facility] Comment on above: Performed By: #### 4 [id number] #### [facility] [address] [place] [address] pH (U) 6.0 [pH] Invalid Interpretation Code 5.0-9.0 [facility] Comment on above: Performed By: #### 4 [id number] #### [facility] [address] [place] [address] Protein Ql (U) 2+ mg/dL Abnormal Negative [facility] Comment on above: Performed By: #### 4 [id number] #### [facility] [address] [place] [address] RBC Ql (U) >75 Abnormal 0-3 [facility] Comment on above: Performed By: #### 4 [id number] #### [facility] [address] [place] [address] Specific gravity (U) [Rel density] 1.027 Invalid Interpretation Code 1.005-1.03 0 [facility] Comment on above: Performed By: #### 4 [id number] #### [facility] [address] [place] [address] Urobilinogen (U) [Mass/Vol] Negative Normal Negative [facility] Comment on above: Performed By: #### 4 [id number] #### [facility] [address] [place] [address] WBC Auto (Urine sed) [#/Area] 16-25 Abnormal 0-5 [facility] Comment on above: Performed By: #### 4 [id number] #### [facility] [address] [place] [address] Type of Urine collection method Clean Catch Normal [facility] Comment on above: Performed By: #### 4 [id number] #### [facility] [address] [place] [address] URINALYSISOrdered By: SYSTEM SYSTEM on 08-09-2024 Bilirubin Ql (U) Negative Normal Negativemg /dL [facility] UA Auto SS Clarity (U) Ex.Turbid *ABN* (08/09/24 9:41 AM) Invalid Interpretation Code Clear [facility] UA Auto SS Color (U) Dark-Brown 1 *ABN* (08/09/24 9:41 AM) Invalid Interpretation Code Yellow [facility] UA Auto SS Comment on above: Interpretive Data: M icroscopic readings are only performed on those samples that meet specific criteria set forth by [facility]. Epithelial cells.squamous Auto (Urine sed) [#/Area] 5-8 graded/HPF Invalid Interpretation Code [facility] UA Auto SS Glucose Ql (U) 4+ mg/dL Invalid Interpretation Code Negativemg /dL [facility] Auto SS Hemoglobin Auto test strip (U) [Mass/Vol] 3+ mg/dL Invalid Interpretation Code Negativemg /dL [facility] UA Auto SS Ketones Auto test strip Ql (U) 2+ mg/dL Invalid Interpretation Code Negativemg /dL [facility] UA Auto SS Leukocyte esterase Auto test strip Ql (U) 250 Naomi/uL Naomi/uL Invalid Interpretation Code NegativeLe u/uL [facility] UA Auto SS Mucus Auto Ql (U) 3+ graded/LPF Invalid Interpretation Code Negativegr aded/LPF [facility] UA Auto SS Nitrite Auto test strip Ql (U) Negative Normal Negativemg /dL [facility] UA Auto SS pH (U) 6.0 *NA* (08/09/24 9:41 AM) Invalid Interpretation Code 5.0 - 9.0 [facility] UA Auto SS Protein Ql (U) 2+ mg/dL Invalid Interpretation Code Negativemg /dL [facility] UA Auto SS RBC Ql (U) >75 graded/HPF Invalid Interpretation Code 0-3graded/ HPF [facility] UA Auto SS Specific gravity (U) [Rel density] 1.027 *NA* (08/09/24 9:41 AM) Invalid Interpretation Code 1.005 - 1.030 [facility] UA Auto SS Urobilinogen (U) [Mass/Vol] Negative Normal Negativemg /dL [facility] UA Auto SS WBC Auto (Urine sed) [#/Area] 16-25 graded/HPF Invalid Interpretation Code 0-5graded/ HPF [facility] UA Auto SS URINALYSISOrdered By: Salvador Peraza on 08-09-2024 UA Spec Desc Clean Catch (08/09/24 9:41 AM) Normal [facility] UA Auto SS eGFRon 08-09-2024 eGFR 64 mL/min/1.73 m2 Normal >=59 [facility] Comment on above: Performed By: #### 1 [id number] #### [facility] [address] [place] [address] Ambulatory Visit Summaryon 1 Ambulatory Visit Summary Ambulatory Visi t Summary CHELSEA CURRY :1945 Visit Date:08/08/2024 Ambulatory Visit Instructions Your Diagnosis Ureteral stone with hydronephrosis Gross hematuria Kidney stones Mixed stress and urge incontinence Other urethral stricture, female Proteinuria Your Care Team Attending Physician - AAN SILVER, HANNAH Primary Care Physician - JARED HEDRICK MD This Is Your Medications List trospium (trospium 20 mg oral tablet) Contact prescribing physician if questions or concerns bifidobacterium infantis (Align 4 mg oral capsule) cholecalciferol (Vitamin D3) citalopram hydrochlorothiazide (hydrochlorothiazide 25 mg Tab) levothyroxine linaclotide (Linzess 145 mcg oral capsule) mirtazapine multivitamin with minerals (PreserVision AREDS) pantoprazole (Pantoprazole [address] Tab) rivaroxaban (Xarelto 20 mg oral tablet) semaglutide (Rybelsus 14 mg oral tablet) simvastatin Procedures Performed Cystoscopy (07/30/2024), Colonoscopy (01/30/2024), Esophagogastroduodenoscop y (01/30/2024), Colonoscopy (01/13/2017), [...] postoperative education. Discharge Vitals Heart Rate (Peripheral) 82 Blood Pressure 101/62 Height 165 cm Height 65 in Weight 68.5 kg Weight 150.7 lb BMI 25.16 What to do next Scheduled Follow-Up Appointments Monday 2:40 PM EST With: ÁNGELA JUAREZ PA-C Where: [facility] [address] [place] [address] [place] [address]- You Need to Schedule the Following Appointments Follow Up with ANA SILVER, DANIEL YOUNG When: Where: Medications What How Much When Why Instructions Unchanged trospium (trospium 20 mg oral tablet) 1 Tablets By Mouth Every day Duration: 30 Days take in morning on an empty stomach Unchanged bifidobacterium infantis (Align 4 mg oral capsule) 1 Capsules By Mouth Every day Abdominal cramping S/P cholecystectomy Stool incontinence Lipoma of stomach Contact prescribing physician if questions or concerns Unchanged cholecalciferol (Vitamin D3) 50 Microgram By [...] prescribing physician if questions or concerns Unchanged linaclotide (Linzess 145 mcg oral capsule) 1 Capsules By Mouth Every day Anticoagulated Mejia's esophagus History of colon polyps Constipation by outlet dysfunction Contact prescribing physician if questions or concerns [...] prescribing physician if questions or concerns Unchanged rivaroxaban (Xarelto 20 mg oral tablet) 1 Tablets By Mouth Once a day (in the evening) Contact prescribing physician if questions or concerns Unchanged semaglutide (Rybelsus 14 mg oral tablet) By Mouth Every day Contact prescribing physician if questions or concerns Unchanged simvastatin See instructions 20 mg Oral Monday, Monday, Monday Contact prescribing physic (more content not included)... Normal [facility] Urology Office/Clinic Noteon 08-08-2024 Urology Office/Clinic Note Urology Office/Clinic Note Chief Complaint f/u cysto & stent placement HPI Staff 79 year old female who is a Dr. Eldridge pt presents for follow up to Cystoscopy, left ureteral stent placement done 07/30/24 after urology consult on 07/30 after patient presented to the ER with left-sided flank pain of 1 day duration. Pt states she has spasms when trying to use the restroom. Feels like she is unable to release urine, then has to stand up and then it gets easier to urinate. also wants to discuss calcium intake Patient needs urine culture Dysuria: yes Incomplete bladder emptying: sometimes not always Hematuria: has visible blood, which has improved Frequency: every 2 hrs Urgency: yes Nocturia: 1x per night, improved from 2x per night Stream: weak stream Leaking: leaks small amount Post void dripping: yes Wearing pads/ Depends: wears a pad Urge incontinence: denies Stress incontinence:denies Incontinence without Sensory Awareness: denies Abdominal pain: has crampy pain in lower abdomen Flank pain: cramping pain on both right and left sides Sexual complaints: denies History of Present Illness Tests reviewed: reviewed UA, UCx, labs, CT, KUB, op note, other uro records. I have reviewed the previous health record information and history for this patient from Dr. Sykes. I have reviewed and verified the staff HPI to be accurate for this encounter. There have been no associated fever, chills, flank pain, or blood in the urine. Denies any urinary infections since last encounter. Review of Systems PHQ Score Initial Depression Screen Score: 0 SCORE ROS - Provider Constitutional: denies weight loss, denies hot flashes. Eyes: denies eye problems. Gastrointestinal: denies nausea, denies vomiting. Cardiovascular: denies chest pain or angina. Integumentary: no dryness Musculoskeletal: denies musculoskeletal symptoms. ENMT: denies otolaryngeal symptoms. Respiratory: no shortness of breath. Heme/Lymph: denies easy bleeding tendency, denies easy bruising tendency. Psychiatric: no confusion, no anxiety. Genitourinary: See HPI. Physical Exam Vitals & Measurements HR: 82(Peripheral) BP: 101/62 HT: 65 in HT: 165 cm WT: 68.5 kg WT: 150.7 lb BMI: 25.16 General Appearance: alert , no acute distress, well nourished, well developed female. Assessment/Plan Dr. Eldridge pt. Last seen by Coleen Juarez 06/11/24. Presents for follow up to recent urologic consult. Portions of this record may have been created with voice recognition artificial intelligence software, specifically Druidly, Active Scaler and or Cocodrilo Dog. Substitutions may have occurred due to the inherent limitations of voice recognition and artificial intelligence software. 1. Ureteral stone with hydronephrosis (N13.2: Hydronephrosis with renal and ureteral calculous obstruction) Pt presented to [facility] 07/30/24 with L sided flank pain. Neg urine culture. Labs Cr 1.2, eGFR 45 CT AP wo con 07/30/24 - Approximately 7 x 4 x 3 mm proximal left ureteral calculus approximately 19 cm superior to the left UVJ with mild left hydronephrosis. S/p cysto w/ L stent placement 07/30/24. UA today shows large blood and trace leuks. Mentions she has been having spasms due to stent. Pt feels she is unable to void, has to stand up and then is able to urinate. Discussed calcium intake. Pt states she takes a multivitamin that contains calcium. -Will schedule cysto, L RGP, L URS, laser lithotripsy with L stent replacement (string stent). The procedural risks, benefits, details, and treatment alternatives have been discussed with the patient. These include bleeding, infection, inability to break or retrieve all of the stone, injury to the ureter (the tube which connects the kidney to the bladder), injury to the kidney scarring of the ureter, and need for repeat procedures, among others. Full informed consent has been obtained. Will order Mac anesthesia. -Pt to follow up with myself or Dr. Eldridge after stone surgery 2. Gross hematuria (R31.0: Gross hematuria) S/p Cysto/UD 01/10/23 by PRW - Severe bladder trabeculations, diffuse diverticuli, no bladder tumors. No VANDANA, no prolapse. Perineum is flame red. 01/11/24 - pt called our office c/o gross hematuria. UCx >100k E. coli, tx'd w/ Macrobid x5d. KUB was negative for obstructing/ureteral stone. -had fecal incontinence at that time 05/21/24 - pt called our office c/o gross hematuria 5 days ago and feeling she may have passed a stone (had some diffuse pain, just didn't feel right ) and she was unable to urinate at first but then started voiding better after she saw the blood. UA at PCP's office showed blood wo signs of infection. CT AP w/wo con 06/20/24 (ordered due to gross hematuria) - Two nonobstructing right and two nonobstructing left renal calculi measure up to 4 mm. No hydro. Urine cytology negative, reactive 05/2024. 3. Kidney stones (N20.0: Calculus of kidney) KUB 08/31/21 - small stable b (more content not included)... Normal [facility] Comment on above: Result Comment: Elec tronically Signed By: ANA SILVER, HANNAH\.br\Date and Time Signed: 08/08/24 11:34 EDT\.br\Electronically Co-Signed By: Sandra Mcdonald\.br\Date and Time Co-Signed: 08/08/24 11:25 EDT Basic metabolic 1998 panelon 08-01-2024 Calcium [Mass/Vol] 9.7 mg/dL 8.7 - 10. 3 mg/dL [facility] Chloride [Moles/Vol] 101 mmol/L 96 - 10 6 mmol/L [facility] CO2 [Moles/Vol] 26 mmol/L 20 - 29 mmol/L [facility] Creatinine [Mass/Vol] 0.83 mg/dL 0.57 - 1.00 mg/dL [facility] GFR/1.73 sq M.predicted among non-blacks MDRD (S/P/Bld) [Vol rate/Area] 71 mL/min/{1.73_m2} 59 - PINF mL/min/1.7 3 [facility] Glucose [Mass/Vol] 134 mg/dL High 70 - 99 mg/dL [facility] Potassium [Moles/Vol] 3.4 mmol/L Low 3.5 - 5.2 mmol/L [facility] Sodium [Moles/Vol] 141 mmol/L 134 - 144 mmol/L [facility] Urea nitrogen [Mass/Vol] 12 mg/dL 8 - 27 mg/dL [facility] Urea nitrogen/Creatinine [Mass ratio] 14 mg/mg 12 - 28 [facility] C Urineon 08-01-2024 Bacteria identified Cx Nom (U) Microbiology PROCEDURE: Urine Culture [R1] SOURCE: U CleanCatch BODY SITE: COLLECTED DATE/TIME: 07/30/2024 08:44 EDT RECEIVED DATE/TIME: 07/30/2024 10:55 EDT START DATE/TIME: 07/30/2024 10:56 EDT FREE TEXT SOURCE: Kevin Mann PA-C, PA-C, Kevin FINAL REPORTS Final Report [] Verified Date/Time: 08/01/2024 10:45 EDT 1,000 cfu/ml Mixed skin contaminants Performing Locations R1: This test was performed at: [facility], [address] [place] [address], [phone]- , , Normal [facility] Comment on above: Performed By: #### 2 [id number] #### [facility] [address] [place] [address] Hemoglobin a1c with eagon Average glucose Estimated from glycated hemoglobin (Bld) [Mass/Vol] 163 mg/dL [facility] HbA1c (Bld) [Mass fraction] 7.3 % High 4.8 - 5.6 % [facility] Comment on above: Prediabetes: 5.7 - 6 .4 Diabetes: >6.4 Glycemic control for adults with diabetes: <7.0 No Panel Informationon 08-01 Interpretation and review of laboratory results Abnormal [facility] Performed at: [address] [place] [id number] Wood Pile Driver Operator: Derek Adair PhD, Phone: [phone] [facility] Specimen Status Reporton Clindamycin Disk diffusion (KB) [facility] Comment [facility] Comment on above: Otoniel Samuels BMP8 De fault Otoniel Samuels BMP8 Default A hand-written panel/profile was received from your office. In accordance with the [facility] Ambiguous Test Code Policy dated April 2003, we have completed your order by using the closest currently or formerly recognized AMA panel. We have assigned Basic Metabolic Panel (8), Test Code #894062 to this request. If this is not the testing you wished to receive on this specimen, please contact the [facility] Client Inquiry/Technical Services Department to clarify the test order. We appreciate your business. TSHon 08-01-2024 TSH Qn 0.691 m[IU]/L [facility] Vitamin B12on 08-01-2024 Cobalamin (Vitamin B12) [Mass/Vol] 885 pg/mL 232 - 1245 pg/mL [facility] Healthcare Main OR Intraoperative Recor don 07-31-2024 Main OR Intraoperative Record Main OR Intraoperative Record IntraOp Document Type FT Summary Primary Physician: HANNAH CHACON MD Finalized Date/Time: 07/31/24 14:19:27 Pt. Name: CHELSEA CURRY /Sex: 1945 Female Med Rec #: [id number] Physician: Bacilio Mayen DO Financial #: [id number] Pt. Type: O Room/Bed: [place] [address] Admit/Disch: 07/30/24 08:10:57 - 07/30/24 14:55:00 Institution: Case Times FT Entry 1 Patient Times In Room 07/30/24 12:50:00 Out Room 07/30/24 13:21:00 Procedure Times Start 07/30/24 13:04:00 Stop 07/30/24 13:11:00 Anesthesia Times Start 07/30/24 12:50:00 Stop 07/30/24 13:21:00 Last Modified By: Miles Cruz 07/30/24 13:28:51 General Comments: 07/31/24 Chart opened to review and send charges LRoth CSFA Case Attendance FT Entry 1 Entry 2 Entry 3 Case Attendee Ramila Kilpatrick CRNA, MD, Miles Cruz Role Performed ESTHER Surgeon - Primary Dining Room Manager - Primary Time In 07/30/24 12:50:00 07/30/24 12:50:00 07/30/24 12:50:00 Time Out 07/30/24 13:21:00 07/30/24 13:21:00 07/30/24 13:21:00 Procedure CYSTOSCOPY RETROGRADE CYSTOSCOPY RETROGRADE CYSTOSCOPY RETROGRADE STENT INSERTION(Left) STENT INSERTION(Left) STENT INSERTION(Left) Comments DR BRANDON SUPERVISING Last Modified By: Miles Cruz Terry T Sweene, Terry T 07/30/24 13:31:54 07/30/24 13:31:54 07/30/24 13:31:54 Entry 4 Entry 5 Case Attendee Julio Moore Daniel P Role Performed Scrub - Primary Oyster Farmer Time In 07/30/24 12:50:00 07/30/24 13:05:00 Time Out 07/30/24 13:21:00 07/30/24 13:21:00 Procedure CYSTOSCOPY RETROGRADE CYSTOSCOPY RETROGRADE STENT INSERTION(Left) STENT INSERTION(Left) Comments Last Modified By: Miles Cruz Terry T 07/30/24 13:31:54 07/30/24 13:31:54 Perioperative Protocols FT Pre-Care Text: Implements protective measures prior to operative or invasive procedure, confirms identity before the operative or invasive procedure, verifies operative procedure, surgical site, and laterality Entry 1 Procedure(s) CYSTOSCOPY RETROGRADE Patient Identity Birthday, ID Band STENT INSERTION(Left) Verified (select at Check, Patient least 2): Participation Consents / H and P Anesthesia Consent, Operative Site Present Verified H&P, Surgery/Procedure Marking Verified Consent Surgical Site Yes Laterality Verified Yes Verified Procedure Verified Yes Availability Implant, Medication Verified (If Applicable) Prep Dry n/a PreOp Antibiotic See Comments Given Time Out Ramila Kilpatrick CRNA, Time Out Complete 07/30/24 13:04:00 Participants HANNAH CHACON MD, Sweene, Terry T, Troike, Kendall R, Roll RT, Daniel P Outcomes Met? Yes Last Modified By: Miles Cruz 07/30/24 13:31:39 Post-Care Text: The patient is free from signs and symptoms of injury caused by extraneous objects Allergy Information FT Pre-Care Text: Verifies allergies Entry 1 Allergies Reviewed? Yes Allergies Reviewed Self/Patient With Outcomes Met? Yes Last Modified By: Miles Cruz 07/30/24 13:31:47 Post-Care Text: The patient received appropriate medication(s) safely administered during the perioperative period Surgical Procedures FT Entry 1 Procedure Description Procedure CYSTOSCOPY RETROGRADE Modifiers Left STENT INSERTION Surgeon Description CYSTO, LEFT RETRO AND LEFT STENT Primary Procedure Yes Primary Surgeon HANNAH CHACON MD 07/30/24 13:04:00 Stop 07/30/24 13:11:00 Anesthesia Type General Surgical Service Anesthesia Wound Class 2 - Clean-Contaminated Last Modified By: Miles Cruz 07/30/24 13:41:16 General Case Data FT Pre-Care Text: Classifies surgical wound, implements aseptic technique, initiates traffic control Entry 1 Case Information OR OR 1 FT Case Level Level 3 Wound Class 2 - Clean-Contaminated Specialty Anesthesia ASA Class 3 Preop Diagnosis LEFT FLANK PAIN, HX OF Postop Same As Preop Yes KIDNEY STONES Postop Diagnosis LEFT FLANK PAIN, HX OF Outcomes Met? Yes KIDNEY STONES Last Modified By: Miles Cruz 07/30/24 13:32:04 Post-Care Text: The patient is free from signs and symptoms of infection Skin Assessment (Pre Procedure) FT Pre-Care Text: Implements protective measures to prevent skin/ tissue injury due to thermal or mechanical sources Evaluates for signs and symptoms of physical injury to skin and tissue Entry 1 Skin Integrity Intact, [place], Warm, & Skin Abnormality No Dry Outcomes Met? Yes Last Modified By: Miles Cruz 07/30/24 13:32:15 Post-Care Text: The patient is free from signs and symptoms of injury caused by extraneous objects Patient Positioning FT Pre-Care Text: Identifies physical alterations that require additional precautions for procedure-specific positioning, verifies presence of prosthetics or corrective devices, positions the patient, evaluates the patient for signs an (more content not included)... Normal [facility] BMPon 07-30-2024 Anion gap [Moles/Vol] 13 mmol/L Normal 6-16 [facility] Comment on above: Performed By: #### 2 [id number] #### [facility] [address] [place] [address] Calcium [Mass/Vol] 9.9 mg/dL Normal 8.9-11.1 [facility] Comment on above: Performed By: #### 2 [id number] #### [facility] [address] [place] [address] Chloride [Moles/Vol] 102 mmol/L Normal 101-111 [facility] Comment on above: Performed By: #### 2 [id number] #### [facility] [address] [place] [address] CO2 [Moles/Vol] 28 mmol/L Normal 21-31 [facility] Comment on above: Performed By: #### 2 [id number] #### [facility] [address] [place] [address] Creatinine [Mass/Vol] 1.2 mg/dL Normal 0.5-1.3 [facility] Comment on above: Performed By: #### 2 [id number] #### [facility] [address] [place] [address] Glucose [Mass/Vol] 202 mg/dL High 55-199 [facility] Comment on above: Performed By: #### 2 [id number] #### [facility] [address] [place] [address] Potassium [Moles/Vol] 3.5 mmol/L Normal 3.5-5.3 [facility] Comment on above: Performed By: #### 2 [id number] #### [facility] [address] [place] [address] Sodium [Moles/Vol] 139 mmol/L Normal 135-145 [facility] Comment on above: Performed By: #### 2 [id number] #### [facility] [address] [place] [address] Urea nitrogen [Mass/Vol] 17 mg/dL Normal 5-21 [facility] Comment on above: Performed By: #### 2 [id number] #### [facility] [address] [place] [address] Urea nitrogen/Creatinine [Mass ratio] 14 No Units Normal 10-20 [facility] Comment on above: Performed By: #### 2 [id number] #### [facility] [address] [place] [address] CBC w/ Auto Diffon 4 Basophils/100 WBC (Bld) 0.7 % Normal 0.0-2.0 [facility] Comment on above: Performed By: #### 2 [id number] ####[facility] [address] [place] [id number] Basophils/Leukocytes Auto (Bld) [Pure # fraction] 0.1 E9/L Normal 0.0-0.2 [facility] Comment on above: Performed By: #### 2 [id number] ####[address] [address] Eosinophils (Bld) [#/Vol] 0.0 E9/L Normal 0.0-0.5 [facility] Comment on above: Performed By: #### 2 [id number] ####[address] [address] Eosinophils/100 WBC (Bld) 0.6 % Normal 0.0-8.0 [facility] Comment on above: Performed By: #### 2 [id number] ####[address] [address] Erythrocyte distribution width (RBC) [Ratio] 13.5 % Normal 10.9-14.2 [facility] Comment on above: Performed By: #### 2 [id number] ####[address] [address] Hematocrit (Bld) [Volume fraction] 39.7 % Normal 34.0-46.0 [facility] Comment on above: Performed By: #### 2 [id number] ####[address] [address] Hemoglobin (Bld) [Mass/Vol] 14.4 g/dL Normal 12.0-16.0 [facility] Comment on above: Performed By: #### 2 [id number] ####[address] [address] Lymphocytes (Bld) [#/Vol] 0.8 E9/L Low 1.0-4.0 [facility] Comment on above: Performed By: #### 2 [id number] ####[address] [address] Lymphocytes/100 WBC (Bld) 11.3 % Low 14.0-50.0 [facility] Comment on above: Performed By: #### 2 [id number] ####[address] [address] MCH (RBC) [Entitic mass] 33.5 pg Normal 27.0-34.0 [facility] Comment on above: Performed By: #### 2 [id number] ####[address] [address] MCHC (RBC) [Mass/Vol] 36.3 g/dL High 31.4-36.0 [facility] Comment on above: Performed By: #### 2 858297 ####[address] [address] MCV (RBC) [Entitic vol] 92.4 fL Normal 80.0-100.0 [facility] Comment on above: Performed By: #### 2 [id number] ####[address] [address] Monocytes (Bld) [#/Vol] 0.5 E9/L Normal 0.2-1.0 [facility] Comment on above: Performed By: #### 2 [id number] ####[address] [address] Neutrophils (Bld) [#/Vol] 5.6 E9/L Normal 2.0-7.5 [facility] Comment on above: Performed By: #### 2 [id number] ####[address] [address] Neutrophils/100 WBC (Bld) 80.8 % High 36.0-75.0 [facility] Comment on above: Performed By: #### 2 [id number] ####[address] [address] Platelet 226.0 E9/L Normal 150.0-500. 0 [facility] Comment on above: Performed By: #### 2 [id number] ####[address] [address] Platelet mean volume (Bld) [Entitic vol] 7.6 fL Normal 6.4-10.8 [facility] Comment on above: Performed By: #### 2 [id number] ####[facility] [id number] [place] [address] RBC (Bld) [#/Vol] 4.3 E12/L Normal 4.3-5.9 [facility] Comment on above: Performed By: #### 2 [id number] ####[facility] [address] [place] [address] WBC corrected for nucl RBC Auto (Bld) [#/Vol] 6.9 E9/L Normal 4.0-11.0 [facility] Comment on above: Performed By: #### 2 [id number] ####[facility] [address] [place] [address] CHEMISTRYOrdered By: SYSTEM SYSTEM on 07-30-2024 Anion gap [Moles/Vol] 13 mmol/L Normal 6 - 16 mEq/L Remisol Chem Calcium [Mass/Vol] 9.9 mg/dL Normal 8.9 - 11. 1 mg/dL Remisol Chem Chloride [Moles/Vol] 102 mmol/L Normal 101 - 1 11 mmol/L Remisol Chem CO2 [Moles/Vol] 28 mmol/L Normal 21 - 31 mmol/L Remisol Chem Creatinine [Mass/Vol] 1.2 mg/dL Normal 0.5 - 1.3 mg/dL Remisol Chem eGFR 45 mL/min/1.73 m2 Low >=59mL/min /1.73 m2 Remisol Chem Glucose [Mass/Vol] 202 mg/dL High 55 - 199 mg/dL Remisol Chem Potassium [Moles/Vol] 3.5 mmol/L Normal 3.5 - 5.3 mmol/L Remisol Chem Sodium [Moles/Vol] 139 mmol/L Normal 135 - 145 mmol/L Remisol Chem Urea nitrogen [Mass/Vol] 17 mg/dL Normal 5 - 21 mg/dL Remisol Chem Urea nitrogen/Creatinine [Mass ratio] 14 mg/mg Normal 10 - [address] Abdomen/Pelvis w/o Contra ston 07-30-2024 CT Abdomen/Pelvis w/o Contrast Exam Date/Time: 07/30/2024 09:17 EDT Reason for Exam: ABDOMINAL PAIN, ACUTE, NONLOCALIZED;Other (please specify) Report IMPRESSION: MILDLY OBSTRUCTING APPROXIMATELY A 7 MM PROXIMAL LEFT URETERAL CALCULUS. A FEW OTHER SMALL BILATERAL INTRARENAL CALCULI. CHRONIC FINDINGS, NOTED. CLINICAL HISTORY: ABDOMINAL PAIN, ACUTE, NONLOCALIZED. COMPARISON: None available. TECHNIQUE: Spiral unenhanced images were obtained of the abdomen and pelvis without contrast. All CT scans at this facility use dose modulation, iterative reconstruction, and/or weight based dosing when appropriate to reduce radiation dose to as low as reasonably achievable. Unless otherwise stated, incidental findings identified in this report do not require routine follow-up imaging. FINDINGS: Liver: No enlargement, significant fatty infiltration, or suspicious lesion of the visualized segments identified without contrast. Biliary: The gallbladder has been removed. Mild to moderate predominantly extrahepatic biliary dilatation, most consistent with chronic reservoir effect. Pancreas: No mass, organized fluid collection, or abnormal pancreatic ductal dilatation. Spleen: Unremarkable. Adrenals: Unremarkable. Kidneys: Approximately 7 x 4 x 3 mm proximal left ureteral calculus approximately 19 cm superior to the left UVJ with mild left hydronephrosis. A few other small bilateral intrarenal calculi, measuring up to approximately 6 to 7 mm. Several small fluid density predominantly peripelvic cysts. No right hydronephrosis, other ureteral calculi, or suspicious mass. GI tract: No abnormal dilation or wall thickening. Endoscopic clip was then the gastroesophageal junction. The appendix is not confidently identified, without findings to suggest acute appendicitis. Lymph nodes: No pathologically enlarged lymph nodes. 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 No other aneurysm. Minimal atherosclerotic plaquing elsewhere. Mesentery/peritoneum/retr operitoneum: No ascites, organized fluid collection, inflammatory changes, or suspicious mass. Pelvis: Mild wall thickening and mild intraluminal gas within the mildly distended urinary bladder. No suspicious mass. Bones/soft tissue: No acute osseous findings identified. Degenerative changes of the Report lumbar spine with previous posterior fusion/laminectomy at L4-5. Lower thorax: Minimal to mild probable dependent atelectasis of the visualized lung bases. Ordering Provider: Kevin Mann FINAL REPORT Dictated: 07/30/2024 9:46 am Odell Looney MD Signed (Electronic Signature): 07/30/2024 9:46 am Signed by: Odell Looney MD Transcribed by: WERNER Technologist: ALVERTO Technical Comments Rectal Contrast Given? No Oral contrast amount in ml's: 0 Normal [facility] Discharge Instructionson Discharge Instructions Discharge Instruc tions CHELSEA CURRY :1945 Visit Date:07/30/2024 Inpatient Discharge Instructions Your Care Team Admitting Physician - Bacilio Mayen DO Reason for Your Visit Lt flank pain started yesterday with dark urine, hx kidney stones. n/v. Your Diagnosis Hydronephrosis with obstructing calculus Acute UTI Diabetes Hypertension Hypothyroidism Smoker Fecal incontinence History of pulmonary embolism Flank pain Nausea Preoperative clearance Vomiting Tests Performed Urine Culture -- Results Pending -- CT Abdomen/Pelvis w/o Contrast XR Abdomen 1 View -- Results Pending -- Please visit your patient portal for your results or contact your primary care physician. This Is Your Medications List bifidobacterium infantis (Align 4 mg oral capsule) cholecalciferol (Vitamin D3) citalopram clobetasol topical (clobetasol propionate 0.05% top oint) glimepiride (glimepiride 4 mg Tab) hydrochlorothiazide (hydrochlorothiazide 25 mg Tab) levothyroxine linaclotide (Linzess 145 mcg oral capsule) mirtazapine multivitamin with minerals (PreserVision AREDS) pantoprazole (Pantoprazole [address] Tab) pioglitazone (pioglitazone 15 mg Tab) rivaroxaban (Xarelto 20 mg oral tablet) semaglutide (Rybelsus 14 mg oral tablet) simvastatin trospium (trospium 20 mg oral tablet) Procedure History Colonoscopy (01/30/2024), Esophagogastroduodenoscop y (01/30/2024), [...] From Your Doctor Event Name Event Result Discharge Instructions Freetext Follow-up in 1 to 2 weeks for ureteroscopy, laser lithotripsyIt is expected with the stent in place that you would have some discomfort with voiding, urinary urgency or frequencyAlternate Tylenol Motrin for painHydrate vigorously with a least 2 L/da Discharge Activity Ambulate as tolerated, Resume normal activities in 24 hours Discharge Restrictions No restrictions, No driving for 24 hrs, Do not make important decisions for 24 hours Discharge Instructions Discharge Instructions Previously Scheduled Follow-Up Appointments Monday 2:40 PM EST With: ÁNGELA JUAREZ PA-C Where: [facility] [address] [place] [address]- New Follow Up Appointments after Discharge Follow Up with HANNAH CHACON When: Comments: Call for followup appointment Where: [address] [place] [phone] Business (1) Medications What How Much When Why Instructions Next Dose Unchanged bifidobacterium infantis (Align 4 mg oral capsule) 1 Capsules By Mouth Every day Abdominal cramping S/P cholecystectomy Stool incontinence Lipoma of stomach Unchanged cholecalciferol (Vitamin D3) 50 Microgram By [...] 88 Microgram By Mouth Every day Unchanged linaclotide (Linzess 145 mcg oral capsule) 1 Capsules By Mouth Every day Anticoagulated Mejia's esophagus History of colon polyps Constipation by outlet dysfunction Unchanged mirtazapine 15 Milligram By Mouth Once a day (at bedtime) Unchanged multivitamin with minera (more content not included)... Normal [facility] Comment on above: Result Comment: Elec tronically Signed By: Nael HOLLAND, Bala Blunt\.br\Date and Time Signed: 07/30/24 13:56 EDT ED Note-Physicianon 07-30-20 ED Note-Physician ED Note-Physician Basic Information Time Seen: Kevin Mann PA-C 07/30/2024 08:14 Chief Complaint Lt flank pain started yesterday with dark urine, hx kidney stones. n/v. History of Present Illness 79-year-old female comes to the ED for evaluation of left-sided flank pain and concerns for kidney stone. She states she has a longstanding history of kidney stones. She developed left-sided flank pain yesterday. She had dysuria and states she noted some discoloration/hematuria. She also had some nausea with vomiting. No fever or chills. Complains of pain to the right flank area that radiates into the right side of the abdomen. No prior treatments. Review of Systems A 10 point review of systems is negative except as noted above. Medical and Surgical History: Reviewed and noted Social history: Lives at home Tobacco: Denies Physical Exam Vitals & Measurements T: 36.7 ?C(Oral) HR: 70(Monitored) RR: 18 BP: 155/66 SpO2: 95% HT: 165 cm WT: 65.9 kg BMI: 24.21 Nurses notes and vital signs reviewed and patient is not hypoxic. General: The patient appears well, resting comfortably. Skin: Warm, dry. Head: Atraumatic. Neck: No JVD. Eye: Normal conjunctiva. Ears, Nose, Mouth, and Throat: Moist mucous membranes. Cardiovascular: Strong distal pulses. Chest wall: Respiratory: Respirations are nonlabored. Back: Left-sided CVA tenderness rating on the left mid abdomen. Musculoskeletal: Normal ROM with no gross deformity. Gastrointestinal: Left mid abdominal tenderness. No guarding rebound or rigidity. No distention Urological: Neurological: Awake and alert. No focal deficits. Follows commands. Psychiatric: Cooperative. Medical Decision Making Laboratory studies reviewed and noted. No leukocytosis. Renal function is preserved. Urinalysis does show hematuria with some mild signs of infection. CT scan reviewed by radiologist. Patient has a mildly obstructing proximal 7 mm stone. Patient states she normally requires intervention for stones. Case is discussed with urology. Ultimately patient will be admitted to the hospitalist service, maintain n.p.o. status, with expectation of likely urethral stenting. Assessment/Plan 1. Ureterolithiasis (N20.1: Calculus of ureter) Orders: ceftriaxone + Sodium Chloride 0.9% intravenous solution 50 mL, 1,000 mg = 1 EA, IV Piggyback, Once, Stop date 07/30/24 10:17:00 EDT, STAT, Start date 07/30/24 10:17:00 EDT, 100 mL/hr, Infuse over 30 minute(s), 07/30/24 10:17:00 EDT morphine, 2 mg = 1 mL, Injection, IV Push, Once, Stop date 07/30/24 8:19:00 EDT, STAT, Start date 07/30/24 8:19:00 EDT, 07/30/24 8:19:00 EDT morphine, 2 mg = 1 mL, Injection, IV Push, Once, Stop date 07/30/24 10:11:00 EDT, STAT, Start date 07/30/24 10:11:00 EDT, 07/30/24 10:11:00 EDT ondansetron, 4 mg = 2 mL, Injection, IV Push, Once, Stop date 07/30/24 8:19:00 EDT, STAT, Start date 07/30/24 8:19:00 EDT, 07/30/24 8:19:00 EDT Sodium Chloride 0.9% intravenous solution, 1,000 mL, Soln-IV, IV, Once, Stop date 07/30/24 8:19:00 EDT, STAT, Start date 07/30/24 8:19:00 EDT, Infuse over 61, minute(s) tamsulosin, 0.4 mg = 1 cap(s), Cap, Oral, Once, Stop date 07/30/24 10:16:00 EDT, STAT, Start date 07/30/24 10:16:00 EDT, 07/30/24 10:16:00 EDT Basic Metabolic Panel CBC w/ Auto Diff CT Abdomen/Pelvis w/o Contrast ED Physician consult Hospitalist for continued care eGFR Extra Blue Tube Extra SST Tube UA with Cult Rflx Urine Culture Urine Strain Medications Administered Given morphine 2 mg/mL Inj, 2 mg, IV Push morphine 2 mg/mL Inj, 2 mg, IV Push NS 1000 ml Bolus, 1000 mL, IV ondansetron 4 mg/2 mL Inj, 4 mg, IV Push Disposition Plan Patient Discharge Condition Disposition: Admitted to the hospital Condition: Improved and stable Counseled: Patient and/or family were counseled to workup, results, treatment plan and follow-up recommendations Discharge Prescription List Prescriptions No active prescription medications Follow-up No qualifying data available Attestation I performed a substantive part of the MDM during the patient?s E/M visit. I personally made or approved the documented management plan and acknowledge its risk of complications. (Independent Interpretation) My (EKG/X-Ray/US/CT) interpretation as above. (Discussion) Management/test interpretation discussed with APC. This report was transcribed using voice recognition software. Every effort was made to ensure accuracy, however, inadvertently computerized hairspring studder mistakes may be present. Appropriate healthcare PPE was used in evaluating this patient. Problem List/Past Medical History Ongoing Abdominal cramping Abdominal tenderness Acid reflux Anticoagulated Mejia's esophagus Chronic cystitis Chronic diarrhea Constipation by outlet dysfunction Diabetes Dysphagia Fecal incontinence Glucosuria Gross hematuria History of colon polyps Hyperlipidemia Hypertension Hypothyroidism Kidney stones Lipoma o (more content not included)... Normal [facility] Comment on above: Result Comment: Elec tronically Signed By: Kevin Mann PA-C\.br\Date and Time Signed: 07/30/24 10:19 EDT\.br\Electronically Co-Signed By: Lisa Dumont M.D.\.br\Date and Time Co-Signed: 07/30/24 19:09 EDT Extra Blueon 07-30-2024 Tube Collected Plasma Yes Invalid Interpretation Code [facility] Comment on above: Performed By: #### 1 [id number] #### [facility] [address] [place] [address] HEMATOLOGYOrdered By: SYSTEM SYSTEM on 07-30-2024 Basophils/100 WBC (Bld) 0.7 % Normal 0.0 - 2.0 % Remisol Heme Basophils/Leukocytes Auto (Bld) [Pure # fraction] 0.1 E9/L Normal 0.0 - 0.2 E9/L Remisol Heme Eosinophils (Bld) [#/Vol] 0.0 E9/L Normal 0.0 - 0.5 E9/L Remisol Heme Eosinophils/100 WBC (Bld) 0.6 % Normal 0.0 - 8.0 % Remisol Heme Erythrocyte distribution width (RBC) [Ratio] 13.5 % Normal 10.9 - 14.2 % Remisol Heme Hematocrit (Bld) [Volume fraction] 39.7 % Normal 34.0 - 46.0 % Remisol Heme Hemoglobin (Bld) [Mass/Vol] 14.4 g/dL Normal 12.0 - 16.0 gm/dL Remisol Heme Lymphocytes (Bld) [#/Vol] 0.8 E9/L Low 1.0 - 4.0 E9/L Remisol Heme Lymphocytes/100 WBC (Bld) 11.3 % Low 14.0 - 50.0 % Remisol Heme MCH (RBC) [Entitic mass] 33.5 pg Normal 27. 0 - 34.0 pg Remisol Heme MCHC (RBC) [Mass/Vol] 36.3 g/dL High 31.4 - 36.0 gm/dL Remisol Heme MCV (RBC) [Entitic vol] 92.4 fL Normal 80.0 - 100.0 fL Remisol Heme Monocytes (Bld) [#/Vol] 0.5 E9/L Normal 0.2 - 1.0 E9/L Remisol Heme Monocytes/100 WBC (Bld) 6.6 % Normal 4.0 - 14.0 % Remisol Heme Neutrophils (Bld) [#/Vol] 5.6 E9/L Normal 2.0 - 7.5 E9/L Remisol Heme Neutrophils/100 WBC (Bld) 80.8 % High 36.0 - 75.0 % Remisol Heme Platelet 226.0 E9/L Normal 150.0 - 500.0 E9/L Remisol Heme Platelet mean volume (Bld) [Entitic vol] 7.6 fL Normal 6.4 - 10.8 fL Remisol Heme RBC (Bld) [#/Vol] 4.3 E12/L Normal 4.3 - 5.9 E12/L Remisol Heme WBC corrected for nucl RBC Auto (Bld) [#/Vol] 6.9 E9/L Normal 4.0 - 11.0 E9/L Remisol Heme Inpatient Patient Summaryon 07-30-2024 Inpatient Patient Summary Inpatient Patient Summary [place] [id number] [facility] Clinical Discharge Instructions PERSON INFORMATION Name: CHELSEA CURRY [facility] Admitting Physician: Bacilio Mayen DO Attending Physician: Bacilio Mayen DO PCP: JARED HEDRICK MD Discharge Diagnosis: 1:Hydronephrosis with obstructing calculus; 2:Acute UTI; 3:Diabetes; 4:Hypertension; 5:Hypothyroidism; 6:Smoker; 7:Fecal incontinence; 8:History of pulmonary embolism Comment: PATIENT EDUCATION INFORMATION Instructions: Kidney Stones, Hdhw-lv-Phyn Medication Leaflets: Follow up: Type Location Start Finish State [facility] Office Visit [facility] LIYAH Saleh 09/10/2024 2:40 PM 09/10/2024 3:00 PM Confirmed MEDICATION LIST Medications to Continue with No Changes Other Medications bifidobacterium infantis (Align 4 mg oral capsule) 1 Capsules By Mouth every day. Refills: 4. cholecalciferol (Vitamin D3) 50 Microgram By Mouth every day. citalopram 10 Milligram By Mouth every day. clobetasol topical (clobetasol propionate 0.05% top oint) Apply to affected area every 12 hours as needed for pain/discomfort.. Refills: 2. glimepiride (glimepiride 4 mg Tab) 1 Tablets By Mouth every day. hydrochlorothiazide (hydrochlorothiazide 25 mg Tab) 1 Tablets By Mouth every day. levothyroxine 88 Microgram By Mouth every day. linaclotide (Linzess 145 mcg oral capsule) 1 Capsules By Mouth every day. Refills: 4. mirtazapine 15 Milligram By Mouth once a day (at bedtime). multivitamin with minerals (PreserVision AREDS) pantoprazole (Pantoprazole [address] Tab) 1 Tablets By Mouth every day for 90 Days. Refills: 2. pioglitazone (pioglitazone 15 mg Tab) 1 Tablets By Mouth every day. rivaroxaban (Xarelto 20 mg oral tablet) 1 Tablets By Mouth once a day (in the evening). semaglutide (Rybelsus 14 mg oral tablet) By Mouth every day. simvastatin 20 mg Oral Monday, Monday, Monday. trospium (trospium 20 mg oral tablet) 1 Tablets By Mouth every day for 30 Days. take in morning on an empty stomach. Refills: 11. Comment: Normal [facility] Main OR PACU I Recordon 10-0 Main OR PACU I Record Main OR PACU I Rec ord PACU Phase I Document Type FT Summary Primary Physician: HANNAH CHACON MD Finalized Date/Time: 07/30/24 14:05:29 Pt. Name: CHELSEA CURRY Jamey ChanB./Sex: 1945 Female Med Rec #: [id number] Physician: Bacilio Mayen DO Financial #: [id number] Pt. Type: I Room/Bed: Admit/Disch: 07/30/24 08:10:57 - Institution: Case Times PACU I FT [...] to medications Entry 1 In PACU I 07/30/24 13:23:00 Discharge from PACU 07/30/24 13:53:00 I Outcomes Met? Yes Last Modified By: Yamila Jeffrey RN 07/30/24 14:05:19 Post-Care Text: The patient demonstrates knowledge of [...] PACU I FT Entry 1 Start Time 07/30/24 13:23:00 Stop Time 07/30/24 13:53:00 Acuity Level Acuity Level I Last Modified By: Yamila Jeffrey RN 07/30/24 14:05:28 Finalized By: Yamila Jeffrey RN Document Signatures Signed By: Yamila Jeffrey RN 07/30/24 14:05 Normal [facility] Main OR PACU II Recordon Main OR PACU II Record Main OR PACU II R ecord PACU Phase II Document Type FT Summary Primary Physician: HANNAH CHACON MD Finalized Date/Time: 07/30/24 16:28:14 Pt. Name: CHELSEA CURRY /Sex: 1945 Female Med Rec #: [id number] Physician: Bacilio Mayen DO Financial #: [id number] Pt. Type: I Room/Bed: [facility]30 Admit/Disch: 07/30/24 08:10:57 - Institution: Case Times PACU II FT Pre-Care Text: Identifies barriers to communication and implements measures to provide psychological support and determines knowledge level Develops individualized plan of care, and ensures continuity of care Maintains patient's dignity and privacy, and maintains patient confidentiality Identifies and reports philosophical, cultural, and spiritual beliefs and values Identifies individual values and wishes concerning care administers prescribed antibiotic therapy and immunizing agents as ordered, Evaluates postoperative tissue perfusion Implements thermoregulation measures, and monitors body temperature Evaluates postoperative respiratory status Evaluates postoperative cardiac status Evaluates postoperative neurological status Assesses pain control, collaborated in initiating patient-controlled analgesia and implements alternative methods of pain control Verifies allergies, administers prescribed medications and solutions, evaluates response to medications Entry 1 In PACU II 07/30/24 13:55:00 Discharge from PACU 07/30/24 14:55:00 II Outcomes Met? Yes Last Modified By: Sirena Mullins RN 07/30/24 16:28:13 Post-Care Text: The patient demonstrates knowledge of [...] affecting his or her perioperative plan of care. The patient is free from signs and [...] from baseline levels established preoperatively The patient's neurological status is consistent with or improved from baseline levels established preoperatively The patient demonstrates and/or reports adequate pain control throughout the perioperative period The patient received appropriate medication(s), safely administered during the perioperative period Finalized By: Sirena Mullins RN Document Signatures Signed By: Sirena Mullins RN 07/30/24 16:28 Normal [facility] Main OR Preoperative Recordo n 07-30-2024 Main OR Preoperative Record Main OR Preoperative Record PreOp Document Type FT Summary Primary Physician: HANNAH CHACON MD Finalized Date/Time: 07/30/24 13:42:41 Pt. Name: CHELSEA CURRY /Sex: 1945 Female Med Rec #: [id number] Physician: Bacilio Mayen DO Financial #: [id number] Pt. Type: I Room/Bed: [facility]/30 Admit/Disch: 07/30/24 08:10:57 - Institution: Case Times PreOp FT Pre-Care Text: Verifies consent for planned procedure, identifies individual values and wishes concerning care, includes family members in perioperative teaching Entry 1 Patient Times. In Pre Surgery 07/30/24 11:45:00 Out Pre Surgery 07/30/24 12:48:00 Outcomes Met? Yes Last Modified By: Miles Cruz 07/30/24 13:42:40 Post-Care Text: The patient participates in decisions affecting his or her perioperative plan of care Finalized By: Miles Cruz Document Signatures Signed By: Miles Cruz 07/30/24 13:42 Normal [facility] Operative Reporton 4 Operative Report Operative Report Patient: CHELSEA CURRY Age: 79 years Sex: Female : 1945 Associated Diagnoses: None Author: HANNAH CHACON MD Physical Examination Gastrointestinal: Soft. Genitourinary: L. CVA Tenderness. 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 CT demonstrated 7 mm proximal ureteral stone which presents today for stent placement. H&P was reviewed, informed consent was obtained, patient understood risk, benefits, alternatives of the procedure and wished to proceed.. OPERATIVE DETAIL: The patient was brought to the operative suite and placed on continuous pulse oximetry and cardiac monitoring by anesthesia. Rocephin had already been administered in the inpatient. Patient was then placed in the dorsolithotomy position and timeout was performed confirming patient, procedure, side, all in the room agreed. A well-lubricated 22 [place] cystoscopic sheath with a 30 degree lens was inserted into urethral meatus and advanced into the bladder. 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 Prior to this, we did a cystoscopy and findings as demonstrated above. We then cannulated the left ureteral orifice with a Glidewire visualized and a curl in the renal pelvis. Then over the wire we placed a 6 x 22 was?32 cm variable stent visualized in a redundant curl in the renal pelvis and a curl in the bladder. Patient bladder was then emptied. This concluded procedure. Patient was then awakened anesthesia and transferred to PACU in stable condition. PLAN: F/U in 1-2 weeks for ureteroscopy, laser lithotripsy [facility] Comment on above: Result Comment: Elec tronically Signed By: ANA SILVER, HANNAH\.khushi\Date and Time Signed: 07/30/24 13:27 EDT Outpatient Surgery Discharge Instructionon 07-30-2024 Outpatient Surgery Discharge Instruction Outpatient Surgery Discharge Instruction [address] [address] Patient Discharge Instructions PERSON INFORMATION Name: CHELSEA CURRY Date of : 1945 Current Date: 07/30/2024 13:35:27 PHYSICIANS Admitting Physician: Bacilio Mayen DO Discharge Diagnosis: 1:Hydronephrosis with obstructing calculus; 2:Acute UTI; 3:Diabetes; 4:Hypertension; 5:Hypothyroidism; 6:Smoker; 7:Fecal incontinence; 8:History of pulmonary embolism CHELSEA CURRY has been given the following list of follow-up instructions, prescriptions, and patient education materials: Discharge Activity: Ambulate as tolerated, Resume normal activities in 24 hours Discharge Restrictions: No restrictions, No driving for 24 hrs, Do not make important decisions for 24 hours Additional Instructions: Follow-up in 1 to 2 weeks for ureteroscopy, laser lithotripsy It is expected with the stent in place that you would have some discomfort with voiding, urinary urgency or frequency Alternate Tylenol Motrin for pain Hydrate vigorously with a least 2 L/da IF UNABLE TO CONTACT YOUR PHYSICIAN AND YOU FEEL IT IS AN EMERGENCY, GO TO THE NEAREST EMERGENCY ROOM OR CALL 911 I, CHELSEA CURRY, have received the attached patient education materials/instructions and have verbalized understanding: May we do a follow up call? Yes No I was present when discharge instructions were given Patient Signature ___ Date Clinican/Nurse Signature Date Follow up: Type Location Start Finish [facility]RO Office Visit [facility] [place] 09/10/2024 2:40 PM 09/10/2024 3:00 PM Confirmed Pharmacy Information: You may receive a survey from [employer] asking you to rate your care experience. Your feedback is important and will help us understand what we do well and how we can improve the quality of care we provide to you, your loved ones and our community. It?s an honor to serve you. Thank you for choosing [facility] HERE ARE THE MEDICATION CHANGES THAT OCCURRED DURING YOUR HOSPITAL STAY Medications to Continue with No Changes Other Medications bifidobacterium infantis (Align 4 mg oral capsule) 1 Capsules By Mouth every day. Refills: 4. cholecalciferol (Vitamin D3) 50 Microgram By Mouth every day. citalopram 10 Milligram By Mouth every day. clobetasol topical (clobetasol propionate 0.05% top oint) Apply to affected area every 12 hours as needed for pain/discomfort.. Refills: 2. glimepiride (glimepiride 4 mg Tab) 1 Tablets By Mouth every day. hydrochlorothiazide (hydrochlorothiazide 25 mg Tab) 1 Tablets By Mouth every day. levothyroxine 88 Microgram By Mouth every day. linaclotide (Linzess 145 mcg oral capsule) 1 Capsules By Mouth every day. Refills: 4. mirtazapine 15 Milligram By Mouth once a day (at bedtime). multivitamin with minerals (PreserVision AREDS) pantoprazole (Pantoprazole [address] Tab) 1 Tablets By Mouth every day for 90 Days. Refills: 2. pioglitazone (pioglitazone 15 mg Tab) 1 Tablets By Mouth every day. rivaroxaban (Xarelto 20 mg oral tablet) 1 Tablets By Mouth once a day (in the evening). semaglutide (Rybelsus 14 mg oral tablet) By Mouth every day. simvastatin 20 mg Oral Monday, Monday, Monday. trospium (trospium 20 mg oral tablet) 1 Tablets By Mouth every day for 30 Days. take in morning on an empty stomach. Refills: 11. PATIENT EDUCATION INFORMATION Instructions: Kidney Stones Kidney stones are rock-like masses that form inside of the kidneys. Kidneys are organs that make pee (urine). A kidney stone may move into other parts of the urinary tract, including: ? The tubes that connect the kidneys to the bladder (ureters). ? The bladder. ? The tube that carries urine out of the body (urethra). Kidney stones can cause very bad pain and can block the flow of pee. The stone usually leaves your body through your pee. A doctor may need to take out the stone. What are the causes? Kidney stones may be caused by: ? Too much calcium in the body. This may be caused by too much parathyroid hormone in the blood. ? Uric acid crystals in the bladder. The body makes uric acid when you eat certain foods. ? Narrowing of one or both of the ureters. ? A kidney blockage that you were born with. ? Past surgery on the kidney or the ureters. What increases the risk? You are more likely to develop this condition if: ? You have had a kidney stone in the past. ? Other people in your family have had kidney stones. ? You do not drink enough water. ? You eat a diet that is high in protein, salt (sodium), or lopes (more content not included)... Normal [facility] UA with Cult Rflxon 07-30-20 24 Bilirubin Ql (U) Negative Normal Negative [facility] Comment on above: Performed By: #### 4 [id number] #### [facility] [address] [place] [address] Clarity (U) Clear Normal Clear [facility] Comment on above: Performed By: #### 4 [id number] #### [facility] [address] [place] [address] Color (U) Light-Yellow Normal Yellow [facility] Comment on above: Result Comment: Micr oscopic readings are only performed on those samples that meet specific criteria set forth by [facility]. Performed By: #### 4 [id number] #### [facility] [address] [place] [address] Epithelial cells.squamous Auto (Urine sed) [#/Area] 5-8 Invalid Interpretation Code [facility] Comment on above: Performed By: #### 4 [id number] #### [facility] [address] [place] [address] Glucose Ql (U) 2+ mg/dL Abnormal Negative [facility] Comment on above: Performed By: #### 4 [id number] #### [facility] [address] [place] [address] Hemoglobin Auto test strip (U) [Mass/Vol] 3+ mg/dL Abnormal Negative [facility] Comment on above: Performed By: #### 4 [id number] #### [facility] [address] [place] [address] Ketones Auto test strip Ql (U) Negative Normal Negative [facility] Comment on above: Performed By: #### 4 [id number] #### [facility] [address] [place] [address] Leukocyte esterase Auto test strip Ql (U) 250 Naomi/uL Abnormal Negative [facility] Comment on above: Performed By: #### 4 [id number] #### [facility] [address] [place] [address] Mucus Auto Ql (U) Trace Normal Negative [facility] Comment on above: Performed By: #### 4 [id number] #### [facility] [address] [place] [address] Nitrite Auto test strip Ql (U) Negative Normal Negative [facility] Comment on above: Performed By: #### 4 [id number] #### [facility] [address] [place] [address] pH (U) 5.5 [pH] Invalid Interpretation Code 5.0-9.0 [facility] Comment on above: Performed By: #### 4 [id number] #### [facility] [address] [place] [address] Protein Ql (U) Negative Normal Negative [facility] Comment on above: Performed By: #### 4 [id number] #### [facility] [address] [place] [address] RBC Ql (U) >75 Abnormal 0-3 [facility] Comment on above: Performed By: #### 4 [id number] #### [facility] [address] [place] [address] Specific gravity (U) [Rel density] 1.018 Invalid Interpretation Code 1.005-1.03 0 [facility] Comment on above: Performed By: #### 4 [id number] #### [facility] [address] [place] [id number] Urobilinogen (U) [Mass/Vol] Negative Normal Negative [facility] Comment on above: Performed By: #### 4 [id number] #### [facility] [address] [id number] WBC Auto (Urine sed) [#/Area] 6-15 Abnormal 0-5 [facility] Comment on above: Performed By: #### 4 [id number] #### [facility] [address] [place] [address] Yeast.budding Computer assisted Ql (U) Trace Abnormal [facility] Comment on above: Performed By: #### 4 [id number] #### [facility] [address] [place] [id number] Type of Urine collection method Clean Catch Normal [facility] Comment on above: Performed By: #### 4 [id number] #### [facility] [address] [place] [address] URINALYSISOrdered By: SYSTEM SYSTEM on 07-30-2024 Bilirubin Ql (U) Negative Normal Negativemg /dL [facility] UA Auto SS Clarity (U) Clear (07/30/24 8:44 AM) Normal Clear [facility] Auto SS Color (U) Light-Yellow 1 (07/30/24 8:44 AM) Normal Yellow [facility] Auto SS Comment on above: Interpretive Data: M icroscopic readings are only performed on those samples that meet specific criteria set forth by [facility]. Epithelial cells.squamous Auto (Urine sed) [#/Area] 5-8 graded/HPF Invalid Interpretation Code [facility] UA Auto SS Glucose Ql (U) 2+ mg/dL Invalid Interpretation Code Negativemg /dL [facility] UA Auto SS Hemoglobin Auto test strip (U) [Mass/Vol] 3+ mg/dL Invalid Interpretation Code Negativemg /dL [facility] U[facility] Auto SS Ketones Auto test strip Ql (U) Negative Normal Negativemg /dL [facility] UA Auto SS Leukocyte esterase Auto test strip Ql (U) 250 Naomi/uL Naomi/uL Invalid Interpretation Code NegativeLe u/uL [facility] UA Auto SS Mucus Auto Ql (U) Trace graded/LPF Normal Negati vegr aded/LPF [facility] UA Auto SS Nitrite Auto test strip Ql (U) Negative Normal Negativemg /dL [facility] UA Auto SS pH (U) 5.5 *NA* (07/30/24 8:44 AM) Invalid Interpretation Code 5.0 - 9.0 [facility] UA Auto SS Protein Ql (U) Negative Normal Negativemg /dL [facility] Auto SS RBC Ql (U) >75 graded/HPF Invalid Interpretation Code 0-3graded/ HPF [facility] UA Auto SS Specific gravity (U) [Rel density] 1.018 *NA* (07/30/24 8:44 AM) Invalid Interpretation Code 1.005 - 1.030 [facility] UA Auto SS Urobilinogen (U) [Mass/Vol] Negative Normal Negativemg /dL [facility] UA Auto SS WBC Auto (Urine sed) [#/Area] 6-15 graded/HPF Invalid Interpretation Code 0-5graded/ HPF [facility] UA Auto SS Yeast.budding Computer assisted Ql (U) Trace graded/HPF Invalid Interpretation Code [facility] UA Auto SS URINALYSISOrdered By: Kevin Mann on 07-30-2024 UA Spec Desc Clean Catch (07/30/24 8:44 AM) Normal [facility] UA Auto SS Work Phone: XR Abdomen 1 Viewon 07-30-20 XR Abdomen 1 View Exam Date/Time: 07/30/2024 13:15 EDT Reason for Exam: Abdominal pain Report IMPRESSION: INTEROPERATIVE FLUOROSCOPY PROVIDED FOR DR. CHACON'S RETROGRADE PROCEDURES. EXAM: XR Abdomen 1 View DATE: 07/30/2024 1:01 PM CLINICAL HISTORY: Left ureteral calculus. COMPARISON: CT abdomen and pelvis from earlier 07/30/2024. TECHNIQUE: Intraoperative fluoroscopy was provided for Dr. Chacon's retrograde procedures. A total of 0.90 Air Kerma (Ka, r) of fluoroscopy was used with 1 fluoroscopic still saved. No diagnostic images were obtained. A left ureteral stent is noted in expected position on the final image saved. Please see Dr. Chacon's surgical notes for completeness. Ordering Provider: HANNAH CHACON FINAL REPORT Dictated: 07/30/2024 2:24 pm Odell Looney MD Signed (Electronic Signature): 07/30/2024 2:24 pm Signed by: Odell Looney MD Transcribed by: WERNER Technologist: KAYLEN Technical Comments Radiation Dose: Ka,r in mGy = 0.90 DAP = 66.72 Normal [facility] eGFRon 07-30-2024 eGFR 45 mL/min/1.73 m2 Low >=59 [facility] Comment on above: Performed By: #### 1 [id number] #### [facility] [address] [place] [address] Ambulatory Visit Summaryon 0 07-24-2024 Ambulatory Visit Summary Ambulatory Visi t Summary CHELSEA CURRY :1945 Visit Date:07/24/2024 Ambulatory Visit Instructions Your Diagnosis Anticoagulated Mejia's esophagus History of colon polyps Constipation by outlet dysfunction Abdominal tenderness Your Care Team Attending Physician - Mukesh SILVER, Abbie Canseco Primary Care Physician - JARED HEDRICK MD This Is Your Medications List linaclotide (Linzess 145 mcg oral capsule) Contact prescribing physician if questions or concerns bifidobacterium infantis (Align 4 mg oral capsule) cholecalciferol (Vitamin D3) citalopram clobetasol topical (clobetasol propionate 0.05% top oint) glimepiride (glimepiride 4 mg Tab) hydrochlorothiazide (hydrochlorothiazide 25 mg Tab) levothyroxine mirtazapine multivitamin with minerals (PreserVision AREDS) pantoprazole (Pantoprazole [address] Tab) pioglitazone (pioglitazone 15 mg Tab) rivaroxaban (Xarelto 20 mg oral tablet) semaglutide (Rybelsus 14 mg oral tablet) simvastatin trospium (trospium 20 mg oral tablet) Procedures Performed Colonoscopy (01/30/2024), Esophagogastroduodenoscop y (01/30/2024), [...] postoperative education. Discharge Vitals Heart Rate (Peripheral) 101 Respiratory Rate 16 Blood Pressure 126/77 Height 165 cm Height 65 in Weight 64 kg Weight 140.8 lb BMI 23.51 What to do next Scheduled Follow-Up Appointments Monday 2:40 PM EST With: ÁNGELA JUAREZ PA-C Where: [facility] [address] [place] [address]- Medications What How Much When Why Instructions New linaclotide (Linzess 145 mcg oral capsule) 1 Capsules By Mouth Every day Anticoagulated Mejia's esophagus History of colon polyps Constipation by outlet dysfunction Refills: 4 Pickup at [facility]/pharmacy #[id number] Unchanged bifidobacterium infantis (Align 4 mg oral capsule) 1 Capsules By Mouth Every day Abdominal cramping S/P cholecystectomy Stool incontinence Lipoma of stomach Contact prescribing physician if questions or concerns Unchanged cholecalciferol (Vitamin D3) 50 Microgram By [...] prescribing physician if questions or concerns Unchanged rivaroxaban (Xarelto 20 mg oral tablet) 1 Tablets By Mouth Once a d (more content not included)... Normal [facility] Gastroenterology Office/Clin ic Noteon 07-24-2024 Gastroenterology Office/Clinic Note Gastroenterology Office/Clinic Note Chief Complaint constipation and abd pain HPI Staff This is a 79 year old female who presents today for a sick call for complaints of constipation and abdominal pain. Blood Thinners- Xarelto Semaglutide weekly Constipation- Patient states that this started on Monday, she used a suppository and that was not successful so she was using digital disimpaction to get the stool out. Patient stated that she did use stool softeners for 2 days and she was able to get some stool out, but now she is having blood in her stools. Last office visit w/ Dr Mayorga History of Present Illness PT with constipation altered with diarrhea worse after eating food and might get urgency and accidents since she had arlene come with abd cramping take pads with here wherever she goes pt on abx 2 courses for infections Assessment/Plan 1. Abdominal cramping (R10.9: Unspecified abdominal pain) 2. S/P cholecystectomy (Z90.49: Acquired absence of other specified parts of digestive tract) 3. Stool incontinence (R15.9: Full incontinence of feces) 4. 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 Bilateral nonobstructing renal calculi. Medullary nephrocalcinosis. Hepatic steatosis. EUS Results: Dr Ring: 02/23/2024 A. Duodenum, biopsy: - duodenal mucosa with no significant histologic abnormality. B. Stomach, submucosal nodule, endoscopic mucosal resection: - submucosal lipoma. - no evidence of dysplasia. Result comments: Gastric lesion. 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 COLONIC MUCOSA WITH LYMPHOID AGGREGATES. History of Present Illness I have reviewed HPI staff note, most recent labs and imaging, more than 30 minutes spent reviewing the chart, during encounter, placing orders and counseling the patient. pt with possible stool impaction was very bad recently tried to disimpact herself half mucous and half stool every bowel movement PT not pushing hard some tenderness in the rectum and abdomen taking miralax once a day Review of Systems All systems reviewed, negative except as mentioned above Physical Exam Vitals & Measurements HR: 101(Peripheral) RR: 16 BP: 126/77 HT: 65 in HT: 165 cm WT: 64 kg WT: 140.8 lb BMI: 23.51 General: alert, no acute distress HEENT: atraumatic normocephalic Cardiovascular: regular rate and rhythm, normal peripheral perfusion Respiratory: Lungs CTA, respirations non labored Extremities: no deformity, no trauma Abdomen: Benign, soft, tender nondistended Assessment/Plan 1. Anticoagulated (Z79.01: [facility]CI (current) use of anticoagulants) Ordered: linaclotide, 145 mcg = 1 cap(s), Oral, Daily, # 30 cap(s), Refills(s) 4, Pharmacy: [facility]/pharmacy #[id number], 165, cm, 07/24/24 12:20:00 EDT, Height/Length Dosing, 64, kg, 07/24/24 12:20:00 EDT, Weight Dosing 2. Mejia's esophagus (K22.70: Mejia's esophagus without dysplasia) Ordered: linaclotide, 145 mcg = 1 cap(s), Oral, Daily, # 30 cap(s), Refills(s) 4, Pharmacy: [facility]/pharmacy #[id number], 165, cm, 07/24/24 12:20:00 EDT, Height/Length Dosing, 64, k (more content not included)... Normal [facility] Comment on above: Result Comment: Elec tronically Signed By: Mukesh SILVER, Abbie Canseco\.khushi\Date and Time Signed: 07/24/24 12:50 EDT Urine Cytology ([facility])on 0 06-16-2024 Microscopic exam Cytology (U) [Interp] Diagnosis Info Invalid Interpretation Code [facility] Comment on above: Result Comment: A:Ur ine,Urine:Voided Interpretation - Negative for dysplastic cells or malignancy. Reactive urothelial cells present. Adequate cellularity for evaluation. MicroScopic Description - Adequacy - Adequate Gross Description Site ID:A color Yellow fixative Alcohol Specimen designated Urine received in alcohol preservative and labeled with the patient?s name, consists of 70ml clear yellow fluid. Electronically signed by : on: 06/16/2024 11:23:56 Performed By: #### 1 [id number] #### [facility] [address] [place] [address] Ambulatory Visit Summaryon 0 06-11-2024 Ambulatory Visit Summary Ambulatory Visi t Summary CHELSEA CURRY :1945 Visit Date:06/11/2024 Ambulatory Visit Instructions Your Diagnosis Gross hematuria Kidney stones Mixed stress and urge incontinence Other urethral stricture, female Tests Performed CT Urogram -- Results Pending -- Please visit your patient portal for your results or contact your primary care physician. Your Care Team Attending Physician - ÁNGELA JUAREZ PA-C Primary Care Physician - JARED HEDRICK MD This Is Your Medications List trospium (trospium 20 mg oral tablet) Contact prescribing physician if questions or concerns bifidobacterium infantis (Align 4 mg oral capsule) cholecalciferol (Vitamin D3) citalopram clobetasol topical (clobetasol propionate 0.05% top oint) colesevelam (Welchol 625 mg Tab) glimepiride (glimepiride 4 mg Tab) hydrochlorothiazide (hydrochlorothiazide 25 mg Tab) levothyroxine mirtazapine multivitamin with minerals (PreserVision AREDS) pantoprazole (Pantoprazole [address] Tab) pioglitazone (pioglitazone 15 mg Tab) rivaroxaban (Xarelto 20 mg oral tablet) semaglutide (Rybelsus 7 mg oral tablet) simvastatin [Image Removed: STOP]Stop taking these medications solifenacin (Vesicare 5 mg Tab) solifenacin (Vesicare [...] postoperative education. Discharge Vitals Temperature (Temporal Artery) 36.8 ?C Heart Rate (Peripheral) 60 Respiratory Rate 16 Blood Pressure 118/61 Height 165 cm Height 65 in Weight 68.5 kg Weight 150.7 lb BMI 25.16 What to do next Scheduled Follow-Up Appointments Monday 2:40 PM EST With: ÁNGELA JUAREZ PA-C Where: [facility] [address] [place] [address] [place] [address]- You Need to Schedule the Following Appointments Follow Up with ÁNGELA JUAREZ PA-C, URL When: Where: [address] [facility] [place] [address] [id number] Medications What How Much When Why Instructions New trospium (trospium 20 mg oral tablet) 1 Tablets By Mouth Every day Duration: 30 Days Refills: 11 take in morning on an empty stomach Pickup at [facility]/pharmacy #[id number] Unchanged bifidobacterium infantis (Align 4 mg oral capsule) 1 Capsules By Mouth Every day Abdominal cramping S/P cholecystectomy Stool incontinence Lipoma of stomach Contact prescribing physician if questions or concerns Unchanged cholecalciferol (Vitamin D3) 50 Microgram By Mouth Every day Contact prescribing physician if questions or concerns Unchanged citalopram 10 Milligram By Mouth Every day Contact prescribing physician if questions or concerns Unchanged clobetasol topical (clobetasol propionate 0.05% top oint) See instructions Apply to affected area every 12 hours as needed for pain/ discomfort. Contact prescribing physician if questions or concerns Unchanged colesevelam (Welchol 625 mg Tab) 3 Tablets By Mouth 2 times a day Abdominal cramping S/P cholecystectomy Stool incontinence Lipoma of stomach Contact prescribing physician if questions or concerns Unchanged glimepiride (glimepiride 4 mg Tab) 1 Tablets By Mouth Every day Contact prescribing physician if questions or concerns Unchanged hydrochlorothiazide (hydrochlorothiazide 25 mg Tab) 1 Tablets By Mouth Every day Contact prescribing physician if questions or concerns Unchanged levothyroxine 88 Microgram By Mouth Every day Contact prescribing physician if questions or concerns Unchanged mirtazapine 15 M (more content not included)... Normal [facility] Urine Cytology ([facility])on 06-11-2024 UC Method of Extraction Voided Normal [facility] Comment on above: Performed By: #### 1 [id number] #### [facility] [address] [id number] Number of Jars 1 Invalid Interpretation Code [facility] Comment on above: Performed By: #### 1 [id number] #### [facility] [address] [place] [address] Specimen Urine Normal [facility] Comment on above: Performed By: #### 1 [id number] #### [facility] [address] [place] [address] Type of Service Technical Only Normal [facility] Comment on above: Performed By: #### 1 [id number] #### [facility] [address] [place] [address] Urology Office/Clinic Noteon 06-11-2024 Urology Office/Clinic Note Urology Office/Clinic Note Chief Complaint kidney stones HPI Staff PRW pt Last seen in our office 12/12/22 by PRW due to Urinary Incontinence & Kidney Stone. Pt called our office 01/11/24 c/o blood in urine. +C&S 01/11/24 >100k E Coli KUB 01/11/24 *Stable BL Kidney Stones. Here today due to having blood in urine again a few weeks ago. Thinks she may have kidney stone. Dysuria: no Incomplete bladder emptying: _ Hematuria: about 3 week ago pt feels it was when she was passing a stone Frequency: every 1-2 hours Urgency: yes can delay less than 10 minutes Nocturia: 2x Stream: stream is ok but pt states she has to reposition sometimes for better flow Leaking: a little Post void dripping: no Wearing pads/ Depends: wears a pad and changes 1x daily Urge incontinence: yes Stress incontinence: yes Incontinence without Sensory Awareness: no Abdominal pain: no Flank pain: no Sexual complaints: no History of Present Illness staff HPI reviewed and agree. Review of Systems PHQ Score Initial Depression Screen Score: 0 SCORE no fever, chills, malaise, myalgia. no rash/lesions. no chest pain, palpitations, or SOB. no abdominal pain, nausea, vomiting. no unilateral calf swelling, redness, pain Physical Exam Vitals & Measurements T: 36.8 ?C(Temporal Artery) HR: 60(Peripheral) RR: 16 BP: 118/61 HT: 65 in HT: 165 cm WT: 68.5 kg WT: 150.7 lb BMI: 25.16 General: nontoxic, NAD Mouth: moist mucosa Lungs: normal respiratory effort Cardio: regular rate, good distal perfusion Abdomen: nondistended, no suprapubic distention or tenderness, no CVA tenderness Neurologic: Grossly normal Skin: No rashes or suspicious lesions Assessment/Plan Dr. Eldridge pt 1. Gross hematuria (R31.0: Gross hematuria) S/p Cysto/UD 01/10/23 by PRW - Severe bladder trabeculations, diffuse diverticuli, no bladder tumors. No VANDANA, no prolapse. Perineum is flame red. 01/11/24 - pt called our office c/o gross hematuria. UCx >100k E. coli, tx'd w/ Macrobid x5d. KUB was negative for obstructing/ureteral stone. -had fecal incontinence at that time 05/21/24 - pt called our office c/o gross hematuria 5 days ago and feeling she may have passed a stone (had some diffuse pain, just didn't feel right ) and she was unable to urinate at first but then started voiding better after she saw the blood. UA at PCP's office showed blood wo signs of infection. UA today negative for blood and infection. Discussed potential etiologies and implications of hematuria with patient. These include: trauma (recent catheterization, etc), Tumor (renal, urothelial, urethral, etc), infection/inflammation (UTI, cystitis, recent catheterization, interstitial cystitis, radiation), stones, period/menses (pseudohematuria), obstructive uropathy (urolithiasis, stricture, etc), nephritis (glomeurlonephritis, Alport's syndrome, Canchola's IgA nephropathy, interstitial nephritis, etc), Tuberculosis, thrombosis (renal vein thrombosis, renal infarct, pseudoaneurysm, etc) and hematologic (bleeding disorders, anticoagulation, sickle cells disease, etc) Discussed hematuria workup includes upper urinary tract imaging, evaluation of the urinary cells with urine cytology, and a cystoscopy to rule out lower urinary tract pathology. Pt aware that a distinct etiology of the hematuria may not be clear upon conclusion of the workup. Since cysto was just done in 12/2022 we will hold off on repeating this for now, if has another episode of hematuria will update cysto. Will update CTU and cyto. The rationale for this workup has been discussed, and all questions have been answered. -Urine sample to be sent for cytology -Schedule CT urogram. Will call pt with results. 2. Kidney stones (N20.0: Calculus of kidney) KUB 08/31/21 - small stable bilateral renal stones. KUB 12/12/21 [facility] - no new stones. KUB 01/11/24 - 5 mm stone over R mid body. Several small stones projecting over LSP. KUB 06/10/24 [facility] - dictation still pending. Personal review: appears unchanged from prior KUB in December. Taking HCTZ 25 mg qd through PCP. Reviewed imaging result with pt. 3. Mixed stress and urge incontinence (N39.46: Mixed incontinence) UUI > VANDANA. Tried Oxybutynin 5 mg bid for a short time. PVR 12/12/22 - 0 mL. BBS 19. Was taking Vesicare 5 mg qod but is not currently due to running out of refills. Did try taking Vesicare 5mg qd but had SE of dry mouth. Admits she did not call for refills of Vesicare due to this SE. Offered to try alternative medication. Pt wishes to proceed. -D/c Vesicare -Start Trospium 20mg qAM. Discussed the medication side effects, and the patient will monitor closely for these, as well as for symptom improvement. If severe side effects occur, the medication should be stopped and the office notified. -F/u in 3 mos 4. Other urethral stricture, female (N35.82: Other urethral stricture, female) S/p Cysto/UD 01/10/23 by PRW - Dilated to 30Fr. Stream is fine. Does have to reposition at times (more content not included)... [facility] Comment on above: Result Comment: Elec tronically Signed By: ÁNGELA JUAREZ PA-C\.br\Date and Time Signed: 06/11/24 14:48 EDT\.br\Electronically Co-Signed By: Fina Yap\.br\Date and Time Co-Signed: 06/11/24 14:12 EDT Ambulatory Visit Summaryon 0 04-18-2024 Ambulatory Visit Summary CHELSEA CURRY :1945 Visit Date:04/18/2024 Ambulatory Visit Instructions Your Diagnosis Abdominal cramping S/P cholecystectomy Stool incontinence Lipoma of stomach Your Care Team Attending Physician - Mukesh SILVER, Abbie Canseco Primary Care Physician - JARED HEDRICK [...] Lipoma of stomach Refills: 4 Pickup at [facility]/pharmacy #[id number] New colesevelam (Welchol 625 mg Tab) 3 Tablets By Mouth 2 times a day Abdominal cramping S/P cholecystectomy Stool incontinence Lipoma of stomach Refills: 3 Pickup at [facility]/pharmacy #[id number] New colesevelam (Welchol 625 mg Tab) 3 Tablets By Mouth 2 times a day Abdominal cramping S/P cholecystectomy Stool incontinence Lipoma of stomach Pickup at [facility] Unchanged cholecalciferol (Vitamin D3) 50 Microgram [...] Unchanged kosta (more content not included)... [facility] Gastroenterology Office/Clin ic Noteon 04-18-2024 [...] diarrhea. Previous colonoscopy with Dr. Copeland at [facility] 01/13/2017 revealed 5 mm sessile sigmoid polyp [...] times. Previous colonoscopy with Dr. Copeland at [facility] 01/13/2017 revealed 5 mm sessile sigmoid polyp [...] she was (more content not included)... [facility] Comment on above: Result Comment: Elec tronically Signed By: Mukesh SILVER, Abbie Canseco\.br\Date and Time Signed: 04/18/24 10:42 EDT Operative Reporton Operative Report [id number] [facility] Pathology Noteon 03-08-2024 Pathology Note [id number] [facility] HISTOLOGY - TISSUE EXAMon LAB AP CASE REPORT [facility] Comment on above: Result Comment: Surg ical Pathology Case: [id number] Authorizing Provider: Diana Ring MD Collected: 02/23/2024 1232 Ordering Location: [facility] Received: 02/23/2024 1434 [facility] Pathologist: Monica Philip MD Specimens: A) - Small Intestine, Duodenum, r/o celiac B) - Gastric, gastric submucosal nodule r/o adenoma Performed By: #### L [id number] #### [facility] (BEAKER) [address] [place] [address] LAB AP CLINICAL INFORMATION Order Diagnoses [facility] Comment on above: Result Comment: K31. 9 - Gastric lesion [ICD-10-CM] Performed By: #### L [id number] #### [facility] (BEAKER) [address] [place] [address] LAB AP GROSS DESCRIPTION [facility] Comment on above: Result Comment: A. S mall Intestine, Duodenum. Part A is received in formalin labeled with the patient's name Chelsea Curry and duodenum, rule out celiac. It consists of 5 mackey-pink, irregular pieces of mucosal tissue ranging from 0.2 cm to 0.4 cm in greatest dimension. The specimen is submitted in toto in 1 cassette. Minal Payan, Pathologists' Blood Splatter Analyst Student Brent Armstrong, Pathologists' Blood Splatter Analyst B. Gastric. Part B is received in formalin [...] perpendicular B3: Remainder of specimen, sequentially Minal Payan, Pathologists' Blood Splatter Analyst Student Brent Armstrong, Pathologists' Blood Splatter Analyst Performed By: #### L [id number] #### [facility] ([facility]) [address] [place] [address] LAB AP MICROSCOPIC DESCRIPTION Microscopic examination performed. [facility] Comment on above: Performed By: #### L [id number] #### [facility] ([facility]) [address] [place] [address] LAB AP REPORT FINAL DIAGNOSIS NARRATIVE [facility] Comment on above: Result Comment: A. D uodenum, biopsy: - Duodenal mucosa with no significant histologic abnormality. B. Stomach, submucosal nodule, endoscopic mucosal resection: - Submucosal lipoma. - No evidence of dysplasia. Performed By: #### L [id number] #### [facility] WAYNE SAHU) JOE MEYER [id number] on 02-23-2024 HP ----- ----- Attestation signed by Diana Ring [...] EMR. Plan: EGD/EUS with possible EMR. [facility] POCT GLUCOSE METER UNSOLICIT ED RESULTSon 02-23-2024 Glucose [Mass/Vol] 164 mg/dL High 70-105 [facility] Comment on above: Order Comment: Waive d Testing in the ED is performed under the ED CLIA certificate #[id number]. Result Comment: pbar retcorson Performed By: #### L [id number] #### [facility] ([facility]AKER) [address] [place] [address] Prep for Procedureon 024 Prep for Procedure [id number] Chelsea Curry 1945 F Date Provider Department Center 02/16/2024 DIANA KC [facility] No family history on file [facility] 36on 02-14-2024 36 02-14-24 @ 1120 Spoke with patient to let her know that I have the okay for her to hold her Xarelto for 2 days prior to her EGD/EUS on January. Patient verbalized that she will start holding it on the 20 of February. [facility] Telephoneon 02-14-2024 Telephone [id number] Chelsea Curry 1945 F Date Provider Department [place] 02/14/2024 KAT OZUNA [facility] No family history on file [facility] Reminderson 02-07-2024 Reminders - From: Jose Pryor To: [facility] - Reminders/Recalls; Sent: 02/07/2024 09:46:06 EDT Show up: 12/28/2028 09:45:00 EST Subject: Ambulatory Reminder Due Date/Time: 01/29/2029 09:45:00 EDT Reminder/Recall Repeat colonoscopy in 5 years(2028) for hx of colon polyps [facility] Result Letter Officeon 02-06 Result Letter Office (Inserted Image. Un able to display) February 07, 2024 CHELSEA CURRY [address] [place] [id number] : 1945 Below is a summary of [...] letter prior to your next due date. [facility] [phone] [facility] Postoperative Documentson Postoperative Documents [id number] [facility] IntraOperative Documentson 0 02-01-2024 IntraOperative Documents [id number]#1.00TIFF [facility] Physician Referralon 024 Physician Referral [id number]#[id number] [facility] Progress Note-Physicianon Progress Note-Physician Patient: Jamey [...] UTI (urinary tract infection) / SNOMED CT 040258189 / Confirmed Urinary incontinence / SNOMED CT 0072625556 / Confirmed Urinary urgency / SNOMED CT 899439810 / Confirmed Urge incontinence / SNOMED CT 181623163 / Confirmed Other urethral stricture, female / SNOMED CT 473727374 / Confirmed Unintentional weight loss / SNOMED CT 0099177693 / Confirmed Pyelonephritis / SNOMED CT 79326120 / Confirmed Osteoarthritis / SNOMED CT 5546584555 / Confirmed Nocturia / SNOMED CT 991947762 / Confirmed Schatzki's ring / SNOMED CT 672217671 / Confirmed Kidney stones / SNOMED CT 209840456 / Confirmed Urinary frequency / SNOMED CT 313668448 / Confirmed Urinary incontinence without sensory awareness / SNOMED CT 8587624606 / Confirmed Fecal incontinence / SNOMED CT 231216734 / Confirmed Mixed stress and urge incontinence / SNOMED CT 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 / Confirmed Mixed incontinence / SNOMED CT 21497803 / Confirmed Hypothyroidism / SNOMED CT 26844534 / Confirmed Hypertension / SNOMED CT 2562149548 / Confirmed Hyperlipidemia / SNOMED CT 87987900 / Confirmed History of colon polyps / SNOMED CT 8804387688 / Confirmed H/O blood clots / SNOMED CT 824719382 / Confirmed Glucosuria / SNOMED CT 03662504 / Confirmed Acid reflux / SNOMED CT 790372084 / Confirmed Abdominal cramping / SNOMED CT 253565781 / Confirmed Dysphagia / SNOMED CT 11454070 / Confirmed Anticoagulated / SNOMED CT 564843728 / Confirmed Diabetes / SNOMED CT 571759598 / Confirmed Urinary hesitancy / SNOMED CT 603196755 / Confirmed Renal cyst / SNOMED CT 9156455233 / Confirmed Chronic diarrhea / SNOMED CT 077039771 / Confirmed Chronic cystitis / SNOMED CT 78450528 / Confirmed Mejia's esophagus / SNOMED CT 853204519 / Confirmed Histories Procedure history: Colonoscopy (071607817) on 01/13/2017 at 71 Years. Cystoscopy (86180072) on 04/27/2016 at 70 Years. Cystoscopic removal of ureteric stent (206945724) on 04/20/2012 at 66 Years. Cystoscopic insertion of ureteric stent (265830137) on 04/06/2012 at 66 Years. ESWL- Right (136184434) on 04/01/2012 at 66 Years. Cysto/ BL RG (116759530) on 09/29/2010 at 65 Years. ESWL- Right (631822931) on 12/31/2009 at 64 Years. ESWL- Right (596357499) on 12/16/2009 at 64 Years. Cystoscopic laser lithotripsy of ureteric calculus (771074497) in the month of 07/2009 at 64 Years. Cystoscopic removal of ureteric stent (752124515) on 07/30/2009 at 64 Years. Cystoscopic insertion of ureteric stent (791049376) in the month of 06/2009 at 64 Years. Rotator cuff repair- right (940357487) in the month of 02/2008 at 62 Years. Cystoscopic laser lithotripsy of ureteric calculus (821798620) in the month of 11/2006 at 61 Years. Cystoscopic removal of ureteric stent (411110391) in the month of 11/2006 at 61 Years. ESWL - Extracorporeal shockwave lithotripsy for renal calculus (275633129) in the month of 01/2006 at 60 Years. ESWL - Extracorporeal shockwave lithotripsy for renal calculus (389801581) in the month of 03/2005 at 59 Years. ESWL - Extracorporeal shockwave lithotripsy for renal calculus (144140175) in the month of 08/2002 at 57 Years. Cystoscopic insertion of ureteric stent (669986157) in the month of 08/2002 at 57 Years. ESWL (966302051) in the month of 07/2002 at 57 Years. Cystoscopic insertion of ureteric stent (027967305) in the month of 07/2002 at 57 Years. Laminectomy with spinal fusion (002926439) in 1998 at 54 Years. Appendectomy (169714071). Carpal tunn (more content not included)... [facility] Comment on above: Result Comment: Elec tronically Signed By: Jaron Faustin Jr, DO\mckay\Date and Time Signed: 02/01/24 07:45 EDT Progress Note-Physician Patient: Jamey CURRY MRN: [id number] Age: 78 years Sex: Female : 1945 [...] when meets criteria ( To home ). [facility] Comment on above: Result Comment: Elec tronically Signed By: Jaron Faustin Jr, DO\.khushi\Date and Time Signed: 02/01/24 07:45 EDT [place] 01-31-2024 Consent [id number] [facility] Discharge Instructionson Discharge Instructions [id number] [facility] Main OR Intraoperative Recor don 01-31-2024 Main OR Intraoperative Record IntraOp Document Type FT Summary Primary Physician: Abbie Mayorga MD Finalized Date/Time: 01/31/24 09:00:23 Pt. Name: CURRYCHELSEA/Sex: 1945 Female Med Rec #: [id number] Physician: Abbie Mayorga MD Financial #: [id number] Pt. Type: O Room/Bed: / Admit/Disch: 01/30/24 07:46:31 - 01/30/24 23:59:59 Institution: Case Times FT Entry 1 Patient Times In Room 01/30/24 08:51:00 Out Room 01/30/24 09:36:00 Procedure Times Start 01/30/24 09:01:00 Stop 01/30/24 09:33:00 Anesthesia Times Start 01/30/24 08:51:00 Stop 01/30/24 09:36:00 Time at [place] 01/30/24 09:22:00 Last Modified By: Guicho HOLLAND, Mily Méndez 01/30/24 09:36:53 General Comments: 0911 EGD Completed. /,RN 0916 Colonoscopy started. /,RN 01/31/24 Chart opened for charge review per Abi Huerta RN. [place] Case Attendance FT Entry 1 Entry 2 Entry 3 Case Attendee Deppen ESTHER, Irena Lindo RN, Curtis Thomas Role Performed IMAGING ACCOUNT MANAGER Dining Room Manager - Primary Scrub - Primary Time In 01/30/24 08:51:00 01/30/24 08:51:00 01/30/24 08:51:00 Time Out 01/30/24 09:36:00 01/30/24 09:36:00 01/30/24 09:36:00 Procedure EGD AND COLONOSCOPY(.) EGD AND COLONOSCOPY(.) EGD AND COLONOSCOPY(.) Comments Dr. Faustin supervising case Last Modified By: Guicho HOLLAND, Mily Lindo RN, Mily Harrington RN 01/30/24 09:36:54 F 01/30/24 09:36:54 F 01/30/24 09:36:54 Entry 4 Case Attendee Mukesh SILVER, Abbie Canseco Role Performed Surgeon - Primary Time In [...] Time Out Deppen Irena SANTANA, Given Participants Mily Lindo RN, Sparks, Micala E, Mukesh SILVER, Abbie Canseco Time Out Complete 01/30/24 08:53:00 Outcomes [...] colon polypectomy. Primary Procedure Yes Primary Surgeon Abbie Mayorga MD Start 01/30/24 09:01:00 Stop 01/30/24 [...] and tissue Entry 1 Skin Integrity Intact, [place], Warm, and Skin Abnormality No Dry Outcomes Met? Yes Last Modified By: Mily Lindo RN 01/30/24 08:56:51 Post-Care Text: The patient is free from signs an (more content not included)... [facility] Colonoscopy Procedure Report on 01-30-2024 Colonoscopy Procedure Report Patient: CHELSEA CURRY Age: 78 years Sex: Female : 1945 Associated Diagnoses: None Author: Abbie Mayorga MD Pre-Procedure Procedure Date 12/22/2023 09:11:00 . Procedure Type: Colonoscopy with removal of tumor(s), polyp(s), or other lesion(s) by cold snare technique, biopsy. Procedure provider Performed by Abbie Mayorga MD. Current history and physical Documented [...] # 90 tab(s), Refills(s) 2, Pharmacy: [facility], 162.5, cm, 01/17/24 14:37:00 EDT, Height/Length Dosing, 67, kg, 01/17/24 14:37:00 EDT, Weight Dosing Vesicare 5 mg Tab: 5 mg = 1 tab(s), Oral, Daily, # 90 tab(s), Refills(s) 3, Pharmacy: [facility], 165, cm, 12/12/22 13:46:00 EST, Height/Length Dosing, 70.4, kg, 12/12/22 13:46:00 EST, Weight Dosing Vesicare 5 mg Tab: 5 mg = 1 tab(s), Oral, Every other day, # 30 tab(s), Refills(s) 11, Pharmacy: [facility], 165, cm, 12/12/22 13:46:00 EST, Height/Length Dosing, 70.4, kg, 12/12/22 13:46:00 EST, Weight Dosing clobetasol propionate 0.05% top oint: See Instructions, 30 gm, Refill(s) 2, Apply to affected area every 12 hours as needed for pain/discomfort., [facility], 165, cm, 12/12/22 13:46:00 EST, [...] Internal hemorrhoids Normal TI Images Procedure images: Rec1_hd_video_4__02T 08_27_39_488.jpg Rec1_hd_video_2024_04_02T 08_30_35_534.jpg Rec1_hd_video_2024_04_02T 08_30_49_651.jpg Rec1_hd_video_2024_04_02T 08_31_55_547.jpg Rec1_hd_video_2024__02T 08_33_28_220.jpg Rec1_hd_video_2024_04_02T 08_34_55_367.jpg Rec1_hd_video_4_04_02T 08_35_45_430.jpg Rec1_hd_video_2024_04_02T 08_40_24_352.jpg . Post-Procedure Complications: none. Estimated blood loss: none. Specimens: sent to pathology. Devices/ implants: none left in place. 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 Recommendations: Repeat colonoscopy:: In 5 years. Follow-up:: Await biopsy results in 3-5 days, (more content not included)... [facility] Comment on above: Other Comment: Cora cooley Attachment - attachment storage system not supported [id number] Can be viewed in source systemMissing Attachment - attachment storage system not supported [id number] Can be viewed in source systemMissing Attachment - attachment storage system not supported [id number] Can be viewed in source systemMissing Attachment - attachment storage system not supported [id number] Can be viewed in source systemMissing Attachment - attachment storage system not supported [id number] Can be viewed in source systemMissing Attachment - attachment storage system not supported [id number] Can be viewed in source systemMissing Attachment - attachment storage system not supported [id number] Can be viewed in source systemMissing Attachment - attachment storage system not supported [id number] Can be viewed in source system Consent for Treatmenton Consent for Treatment [id number] [facility] Discharge Instructionson Discharge Instructions CHELSEA CURRY :1945 Visit Date:01/30/2024 Inpatient Discharge Instructions Your Care Team Admitting Physician - Abbie Mayorga MD Referring Physician - Abbie Mayorga MD Reason for Your Visit CHRONIC [...] Doctor Event Name Event Result Pharmacy Information [facility] Therese New Follow Up Appointments after Discharge Follow [...] Mejia's esophagus (more content not included)... [facility] Comment on above: Result Comment: Elec tronically Signed By: Latrice Metcalf I\.khushi\Date and Time Signed: 01/30/24 09:45 EDT Irasema 01-30-2024 Esophagogastroduodenosco py Patient: CHELSEA CURRY Age: 78 years Sex: Female : 1945 Associated Diagnoses: None Author: Abbie Mayorga MD Pre-Procedure Procedure Date 12/22/2023 09:18:00 . Procedure Type: Esophagogastroduodenoscop y with biopsy. Procedure provider Performed by Abbie Mayorga MD. Current history and physical Documented [...] # 90 tab(s), Refills(s) 2, Pharmacy: [facility], 162.5, cm, 01/17/24 14:37:00 EDT, Height/Length Dosing, 67, kg, 01/17/24 14:37:00 EDT, Weight Dosing Vesicare 5 mg Tab: 5 mg = 1 tab(s), Oral, Daily, # 90 tab(s), Refills(s) 3, Pharmacy: [facility], 165, cm, 12/12/22 13:46:00 EST, Height/Length Dosing, 70.4, kg, 12/12/22 13:46:00 EST, Weight Dosing Vesicare 5 mg Tab: 5 mg = 1 tab(s), Oral, Every other day, # 30 tab(s), Refills(s) 11, Pharmacy: [facility], 165, cm, 12/12/22 13:46:00 EST, Height/Length Dosing, 70.4, kg, 12/12/22 13:46:00 EST, Weight Dosing clobetasol propionate 0.05% top oint: See Instructions, 30 gm, Refill(s) 2, Apply to affected area every 12 hours as needed for pain/discomfort., [facility], 165, cm, 12/12/22 13:46:00 EST, [...] segment status post biopsies Images Procedure images: Rec1_hd_video_2023__02T _46_157.jpg Rec1_hd_video_4__02T 08__18_303.jpg Rec1_hd_video_4__02T 08_47_387.jpg Rec1_hd_video_2023__02T 08_10_57_172.jpg Rec1_hd_video_4__02T 08__09_274.jpg Rec1_hd_video_4__02T 08__25_264.jpg Rec1_hd_video_4__02T 08_35_248.jpg Rec1_hd_video_4__02T 08__17_396.jpg Rec1_hd_video_4__02T 08__43_443.jpg Rec1_hd_video_2023__02T 08_02_897.jpg Rec1_hd_video_2023__02T 0814_23_214.jpg . Post-Procedure Complications: none. Estimated blood loss: none. Specimens: sent to pathology. Devices/ implants: none left in place. Notes: Increase pantoprazole to twice a day Repeat EGD aft (more content not included)... [facility] Comment on above: Other Comment: Cora cooley Attachment - attachment storage system not supported [id number] Can be viewed in source system Missing Attachment - attachment storage system not supported [id number] Can be viewed in source system Missing Attachment - attachment storage system not supported [id number] Can be viewed in source system Missing Attachment - attachment storage system not supported [id number] Can be viewed in source system Missing Attachment - attachment storage system not supported [id number] Can be viewed in source system Missing Attachment - attachment storage system not supported [id number] Can be viewed in source system Missing Attachment - attachment storage system not supported [id number] Can be viewed in source system Missing Attachment - attachment storage system not supported [id number] Can be viewed in source system Missing Attachment - attachment storage system not supported [id number] Can be viewed in source system Missing Attachment - attachment storage system not supported [id number] Can be viewed in source system Missing Attachment - attachment storage system not supported [id number] Can be viewed in source system Main OR PACU I Recordon Main OR PACU I Record PACU Phase I Docum ent Type FT Summary Primary Physician: Abbie Mayorga MD Finalized Date/Time: 01/30/24 10:18:51 Pt. Name: PATRICIO CHELSEA Jamey Castillo/Sex: 1945 Female Med Rec #: [id number] Physician: Abbie Mayorga MD Financial #: [id number] Pt. Type: O Room/Bed: / Admit/Disch: 01/30/24 [...] Signed By: Latrice Metcalf I 01/30/24 10:18 [facility] Main OR Preoperative Recordo n 01-30-2024 Main OR Preoperative Record Holding Area Document Type FT Summary Primary Physician: Abbie Mayorga MD Finalized Date/Time: 01/30/24 07:58:42 Pt. Name: CHELSEA CURRY Jamey Castillo/Sex: 1945 Female Med Rec #: [id number] Physician: Abbie Mayorga MD Financial #: [id number] Pt. Type: O Room/Bed: / Admit/Disch: 01/30/24 [...] By: Ashanti Tijerina RN 01/30/24 07:58 Normal [facility] Monitor Recordon 01-30-2024 Monitor Record [id number]#1.00TIFF Normal [facility] Monitor Record [id number]#1.00TIFF [facility] Patient Education - Texton 0 01-30-2024 [...] Document Re-Released: 04/09/2007 ExitCare? Patient Information ?2009 [employer]. Gastroenterology Hemorrhoids Hemorrhoids are swollen veins that [...] is this (more content not included)... Normal [facility] Consent for Procedure/Surger yon 01-18-2024 Consent for Procedure/Surgery [id number]#1.00TIFF [facility] Formson 01-18-2024 Forms [id number]#1.00TIFF [facility] Gastroenterology Office/Clin ic Noteon 01-18-2024 Gastroenterology [...] of 1.3. Review of outside records from [facility] indicates patient had previous x-ray of abdomen 01/11/2024 that revealed stable bilateral nephrolithiasis. Review of outside record indicates patient had previous colonoscopy with Dr. Copeland at [facility] 01/13/2017 that revealed 5 mm sessile sigmoid [...] diarrhea. Previous colonoscopy with Dr. Copeland at [facility] 01/13/2017 revealed 5 mm sessile sigmoid polyp [...] anorectal ma (more content not included)... Normal [facility] Comment on above: Result Comment: Elec [...] for future visit, Nurse collect, Chronic diarrhea [facility] Consultation Noteon 01-17-20 Consultation Note [id number]#1.00TIFF Normal [facility] Patient Educationon 01-17-20 Patient Education Gastroenterology [...] these instructions at home: Medicines ? Take ctfg-xqv-oskawrm and prescription medicines only as told by [...] and water are not available, use [employer]. ? Make sure that all people in [...] and water are not available, use [employer]. This information is not intended to replace advice given to you by your health care provider. Make sure you discuss any questions you have with your health care provider. Document Revised: 01/06/2023 Document Reviewed: 04/13/2020 [employer] Patient Education ? 2022 [employer] Normal [facility] MISCon 01-17-2024 [facility] [id number]#1.00TIFF Normal [facility] Lab Reportson 01-15-2024 Lab Reports [id number]#1.00TIFF Normal [facility] Lab Reports [id number]#1.00TIFF Normal [facility] Lab Reports [id number]#1.00TIFF Normal [facility] Lab Reportson 01-12-2024 Lab Reports [id number]#1.00TIFF Normal [facility] RAD MISCon 01-12-2024 [facility] [id number]#1.00TIFF Normal [facility] Physician Referralon 024 Physician Referral [id number]#1.00TIFF Normal [facility] CT SHOULDER LEFT W/O CONTRAS Ton 02-28-2023 [...] by Evert Fisher on 02/28/2023 1643 Normal [facility] Screening Mammogram, Bilater melisa 02-03-2023 Screening Mammogram, [...] IS VERY IMPORTANT TO YOUR HEALTH. THE [employer] GUIDELINES RECOMMEND THAT WOMEN 40 [...] by Evert Fisher on 02/03/2023 1201 Normal [facility] US Spleenon 02-03-2023 US Spleen CLINICAL HISTORY: [...] by Jared Morrissey on 02/03/2023 1525 Normal [facility] [employer] XR KUB 1 VIEWon 12-13-2022 XR KUB [...] by: ALFONSO AVILA Date: 2022-12-13 07:23 Normal [facility] US Carotid, Bilateralon 07-01 US Carotid, Bilateral [...] by Evert Fisher on 07/21/2022 1339 Normal [facility] [employer] CBC AUTO DIFFon 04-18-2022 BASO # 0.1 103/ul Normal 0.0-0.1 [facility] Comment on above: Performed By: #### C BC #### [facility] [address] [place] [address] Dr. Chung Strong Basophils/100 WBC (Bld) 1.3 % Normal 0.2-2.0 [facility] Comment on above: Performed By: #### C BC #### [facility] [address] [place] [address] Dr. Chung Strong EO # 0.1 103/ul Normal 0.0-0.7 [facility] Comment on above: Performed By: #### C BC #### [facility] [address] [place] [address] Dr. Chung Strong Eosinophils/100 WBC (Bld) 2.3 % Normal 0.9-7.0 [facility] Comment on above: Performed By: #### C BC #### [facility] [address] [place] [address] Dr. Chung Strong Erythrocyte distribution width (RBC) [Ratio] 13.0 % Normal 11.0-15.0 [facility] Comment on above: Performed By: #### C BC #### [facility] [address] [place] [address] Dr. Chung Strong Hematocrit (Bld) [Volume fraction] 44.7 % Normal 36.0-48.0 [facility] Comment on above: Performed By: #### C BC #### [facility] [address] [place] [address] Dr. Chung Strong Hemoglobin (Bld) [Mass/Vol] 14.9 g/dL Normal 12.0-16.0 [facility] Comment on above: Performed By: #### C BC #### [facility] [address] [place] [address] Dr. Chung Strong IG # 0.02 10e3/ul Normal 0.00-0.03 [facility] Comment on above: Performed By: #### C BC #### [facility] [address] [place] [address] Dr. Chung Strong IG % 0.4 % Normal 0.0-0.5 [facility] Comment on above: Performed By: #### C BC #### [facility] [address] [place] [address] Dr. Chung Strong LYMPH # 1.7 103/ul Normal 1.2-3.8 [facility] Comment on above: Performed By: #### C BC #### [facility] [address] [place] [address] Dr. Chung Strong Lymphocytes/100 WBC (Bld) 32.3 % Normal 20.5-60.0 [facility] Comment on above: Performed By: #### C BC #### [facility] [address] [place] [address] Dr. Chung Strong MANUAL DIFF REQ NO Normal [facility] Comment on above: Performed By: #### C BC #### [facility] [address] [address] [address] Chung Strong MCH (RBC) [Entitic mass] 32.2 pg Normal 26.7-34.0 [facility] Comment on above: Performed By: #### C BC #### [facility] [address] [place] [address] Dr. Chung Strong MCHC (RBC) [Mass/Vol] 33.3 g/dL Normal 29.9-35.2 [facility] Comment on above: Performed By: #### C BC #### [facility] [address] [place] [address] Dr. Chung Strong MCV (RBC) [Entitic vol] 96.5 fL Normal 81.0-99.0 [facility] Comment on above: Performed By: #### C BC #### [facility] [address] [place] [address] Dr. Chung Strong MONO # 0.5 103/ul Normal 0.3-0.8 [facility] Comment on above: Performed By: #### C BC #### [facility] [address] [place] [address] Dr. Chung Strong Monocytes/100 WBC (Bld) 9.6 % Normal 1.7-12.0 [facility] Comment on above: Performed By: #### C BC #### [facility] [address] [place] [address] Dr. Chung Strong NEUT # 2.9 103/ul Normal 1.4-6.5 [facility] Comment on above: Performed By: #### C BC #### [facility] [address] [place] [address] Dr. Chung Strong Neutrophils/100 WBC (Bld) 54.1 % Normal 43.0-75.0 [facility] Comment on above: Performed By: #### C BC #### [facility] [address] [place] [address] Dr. Chung Strong Platelet mean volume (Bld) [Entitic vol] 9.9 fL Normal 9.5-13.5 [facility] Comment on above: Performed By: #### C BC #### [facility] [address] [place] [address] Dr. Chung Strong PLT 193 103/ul Normal 150-450 [facility] Comment on above: Performed By: #### C BC #### [facility] [address] [place] [address] Dr. Chung Strong RBC 4.63 106/ul Normal 4.20-5.40 [facility] Comment on above: Performed By: #### C BC #### [facility] [address] [place] [address] Dr. Chung Strong WBC 5.3 103/ul Normal 4.0-11.0 [facility] Comment on above: Performed By: #### C BC #### [facility] [address] [place] [address] Dr. Chung Strong PROF 14(COMP METB)on 022 Albumin [Mass/Vol] 3.8 g/dL Normal 3.4-5.0 [facility] Comment on above: Performed By: #### C MP #### [facility] [address] [place] [address] Dr. Chung Strong Albumin/Globulin [Mass ratio] 1.3 {ratio} Normal [facility] Comment on above: Performed By: #### C MP #### [facility] [address] [place] [address] Dr. Chung Strong ALP [Catalytic activity/Vol] 73 U/L Normal 46-116 [facility] Comment on above: Performed By: #### C MP #### [facility] [address] [place] [address] Dr. Chung Strong ALT [Catalytic activity/Vol] 31 U/L Normal 14-59 [facility] Comment on above: Performed By: #### C MP #### [facility] [address] [place] [address] Dr. Chung Strong Anion gap [Moles/Vol] 9.4 mmol/L Normal [facility] Comment on above: Performed By: #### C MP #### [facility] [address] [address] [address] Chung Strong AST [Catalytic activity/Vol] 16 U/L Normal 15-37 [facility] Comment on above: Performed By: #### C MP #### [facility] [address] [address] [address] Chung Strong Bilirubin [Mass/Vol] 0.7 mg/dL Normal 0.2-1.0 [facility] Comment on above: Performed By: #### C MP #### [facility] [address] [address] [address] Chung Strong Calcium [Mass/Vol] 9.5 mg/dL Normal 8.5-10.1 [facility] Comment on above: Performed By: #### C MP #### [facility] [address] [address] [address] Chung Strong Chloride [Moles/Vol] 103 mmol/L Normal 98-107 [facility] Comment on above: Performed By: #### C MP #### [facility] [address] [address] [address] Chung Strong CO2 [Moles/Vol] 31.0 mmol/L Normal 21.0-32.0 [facility] Comment on above: Performed By: #### C MP #### [facility] [address] [place] [address] Dr. Chung Strong Creatinine [Mass/Vol] 0.93 mg/dL Normal 0.55-1.02 [facility] Comment on above: Performed By: #### C MP #### [facility] [address] [place] [address] Dr. Chung Strong EGFR-AF SRI LANKAN >60 Normal >=60 [facility] Comment on above: Performed By: #### C MP #### [facility] [address] [address] [address] Chung Strong EGFR-NON AF SRI LANKAN 58 mL/min/1.73m2 Critically low >=60 [facility] Comment on above: Performed By: #### C MP #### [facility] [address] [place] [address] Dr. Chung Strong Globulin (S) [Mass/Vol] 2.9 g/dL Normal [facility] Comment on above: Performed By: #### C MP #### [facility] [address] [address] [address] Chung Strong Glucose [Mass/Vol] 269 mg/dL Critically high 74-106 [facility] Comment on above: Performed By: #### C MP #### [facility] [address] [address] [address] Chung tSrong Potassium [Moles/Vol] 3.4 mmol/L Critically low 3.5-5.1 [facility] Comment on above: Performed By: #### C MP #### [facility] [address] [place] [address] Dr. Chung Strong Protein [Mass/Vol] 6.7 g/dL Normal 6.4-8.2 [facility] Comment on above: Performed By: #### C MP #### [facility] [address] [place] [address] Dr. Chung Strong Sodium [Moles/Vol] 140 mmol/L Normal 136-145 [facility] Comment on above: Performed By: #### C MP #### [facility] [address] [place] [address] Dr. Chung Strong Urea nitrogen [Mass/Vol] 22.0 mg/dL Critically high 7.0-18 .0 [facility] Comment on above: Performed By: #### C MP #### [facility] [address] [place] [address] Dr. Chung Strong Urea nitrogen/Creatinine [Mass ratio] 23.7 mg/mg Normal [facility] Comment on above: Performed By: #### C MP #### [facility] [address] [place] [address] Dr. Chung Strong PROTIMEon 04-18-2022 INR Coag (PPP) [Relative time] 1.01 {INR} Normal [facility] Comment on above: Performed By: #### P TT, PT #### [facility] [address] [place] [address] Dr. Chung Strong INR GUIDELINES SEE BELOW Normal [facility] Comment on above: Result Comment: MICAH RED INR: 2.0 - 3.0 CONDITIONS NOT LISTED BELOW 2.5 - 3.5 FOR PROSTHETIC HEART VALVE REPLACEMENT 2.5 - 3.5 RECURRENT THROMBOSIS Performed By: #### P TT, PT #### [facility] [address] [address] [address] Cuhng Strong PT Coag (PPP) [Time] 10.9 s Normal 9.0-11.6 [facility] Comment on above: Performed By: #### P TT, PT #### [facility] [address] [address] [address] Chung Strong PTTon 04-18-2022 aPTT Coag (Bld) [Time] 30.8 s Normal 22.3-36.2 [facility] Comment on above: Performed By: #### P TT, PT #### [facility] [address] [address] [address] Chung Strong Bacteria Vaginosis, NAAon Atopobium Vaginae Low - 0 Normal . [facility] Comment on above: Order Comment: Reaso n for Exam Vulvar itching;Vulvar irritation;Vaginal discharge Performed By: #### C ANDIDA,NA, VAGINOSIS #### [facility] , BVAB2 Low - 0 Normal . [facility] Comment on above: Order Comment: Reaso n for Exam Vulvar itching;Vulvar irritation;Vaginal discharge Performed By: #### C ANDIDA,NA, VAGINOSIS #### [facility] , Megasphaera Low - 0 Normal . [facility] Comment on above: Order Comment: Reaso [...] 11-22-2021 Mariely Albicans, CONCEPCIÓN Negative Normal Negative [facility] Comment on above: Order Comment: Reaso n for Exam Vulvar itching;Vulvar irritation;Vaginal discharge Result Comment: This test was developed and its performance characteristics determined by [facility]. It has not been cleared or approved by the Food and Drug Administration. Performed By: #### C ANDIDA,NA, VAGINOSIS #### [facility] , Mariely Glabrata, CONCEPCIÓN Negative Normal Negative [facility] Comment on above: Order Comment: Reaso n for Exam Vulvar itching;Vulvar irritation;Vaginal discharge Result Comment: This test was developed and its performance characteristics determined by [facility]. It has not been cleared or approved by the Food and Drug Administration. Performed at: = - [facility] [id number] [employer] [place] Driver Operator: Roma Hinojosa MD, Phone: [phone] PERFORMED BY: [address] [address] PATHOLOGIST [employer] VARUN BELCHER M.D. Performed By: #### C JOSEFNA, VAGINOSIS #### [facility] , NURSING PROGon 03-01-2019 Protein mass conc HNO ID: [id number] Author: Natalie (Rn) Nikita, RN Service: General Surgery Author Type: Registered Nurse [...] Shelton RN March 01, 2019 8:19 PM [facility] Vital Signs Date Time Vital Sign Value Performing Clinician Facility 02-10-2025 09:37-0400 Body height 162.6 cm Jose Liao [employer] Work Phone: [facility] 02-10-2025 09:37-0400 Body mass index (BMI) [Ratio] 23.52 kg/m2 Jose Liao [employer] Work Phone: [facility] 02-10-2025 09:37-0400 Body weight 62.14 kg Jose Liao [employer] Work Phone: [facility] 02-10-2025 09:37-0400 Diastolic blood pressure 60 mm[Hg] Jose Liao [employer] Work Phone: [facility] 02-10-2025 09:37-0400 Heart rate 75 /min Jose Liao [employer] Work Phone: [facility] 02-10-2025 09:37-0400 SaO2% (BldA) [Mass fraction] 98 % Jose Liao [employer] Work Phone: [facility] 02-10-2025 09:37-0400 Systolic blood pressure 116 mm[Hg] Jose Liao [employer] Work Phone: [facility] 08-15-2024 13:06-0400 Blood Pressure Location [facility]GRUPO [facility] 08-15-2024 13:06-0400 Diastolic blood pressure 72 mm[Hg] [facility]NAH CHACON [facility] 08-15-2024 13:06-0400 Heart rate 62 /min [facility] NKANSAH[facility] 08-15-2024 13:06-0400 Respiratory rate 16 /min [facility] NK[facility]SA[facility] 08-15-2024 13:06-0400 SaO2% (BldA) [Mass fraction] 99 % [facility] NK[facility]SA[facility] 08-15-2024 13:06-0400 Systolic blood pressure 138 mm[Hg] [facility] NKANSAH[facility] 08-15-2024 12:01-0400 Heart rate 66 /min [facility] NK[facility] 08-15-2024 12:01-0400 SaO2% (BldA) [Mass fraction] 99 % [facility] 08-15-2024 12:01-0400 Diastolic blood pressure 61 mm[Hg] [facility] NK[facility]SA[facility] 08-15-2024 12:01-0400 Mean blood pressure 88 mm[Hg] [facility] NK[facility] 08-15-2024 12:01-0400 Systolic blood pressure 143 mm[Hg] [facility] 08-15-2024 12:01-0400 Blood Pressure Location [facility] NK[facility] 08-15-2024 12:00-0400 Respiratory rate 18 /min [facility] 08-15-2024 11:55-0400 Blood Pressure Location [facility] NK[facility]SAH[facility] 08-15-2024 11:55-0400 Body temperature 97.34 [degF] [facility] 08-15-2024 11:55-0400 Diastolic blood pressure 73 mm[Hg] [facility] 08-15-2024 11:55-0400 Heart rate 60 /min [facility] 08-15-2024 11:55-0400 Mean blood pressure 98 mm[Hg] [facility] 08-15-2024 11:55-0400 Respiratory rate 17 /min [facility] 08-15-2024 11:55-0400 SaO2% (BldA) [Mass fraction] 98 % [facility] 08-15-2024 11:55-0400 Systolic blood pressure 148 mm[Hg] [facility] 08-15-2024 11:40-0400 Mean blood pressure 96 mm[Hg] [facility] 08-15-2024 11:40-0400 Respiratory rate 11 /min [facility] 08-15-2024 11:35-0400 Mean blood pressure 92 mm[Hg] [facility] 08-15-2024 11:35-0400 Respiratory rate 20 /min [facility] 08-15-2024 11:26-0400 Body temperature 97.34 [degF] [facility] 08-15-2024 11:15-0400 Respiratory rate 14 /min [facility] 08-15-2024 08:49-0400 Mean blood pressure 97 mm[Hg] [facility] 08-15-2024 08:49-0400 Heart rate 74 /min [facility] 08-15-2024 08:47-0400 Body temperature 97.52 [degF] [facility] 08-15-2024 08:46-0400 Mean blood pressure 101 mm[Hg] [facility] 08-12-2024 11:21-0400 Body height 162.56 cm [facility] 08-12-2024 11:21-0400 Body mass index (BMI) [Ratio] 24.9 kg/m2 [facility] 08-12-2024 11:21-0400 Body temperature 97.4 [degF] [facility] 08-12-2024 11:21-0400 Body weight 65.77 kg [facility] 08-12-2024 11:21-0400 Diastolic blood pressure 60 mm[Hg] [facility] 08-12-2024 11:21-0400 Heart rate 64 /min [facility] 08-12-2024 11:21-0400 Respiratory rate 20 /min [facility] 08-12-2024 11:21-0400 SaO2% (BldA) [Mass fraction] 97 % [facility] 08-12-2024 11:21-0400 Systolic blood pressure 128 mm[Hg] [facility] 08-10-2024 10:18-0400 Hourly Rounding [facility] 08-10-2024 10:18-0400 [facility] 08-10-2024 09:03-0400 Hourly Rounding [facility] 08-10-2024 09:03-0400 [facility] 08-10-2024 08:49-0400 SaO2% (BldA) [Mass fraction] 97 % [facility] 08-10-2024 08:22-0400 Hourly Rounding [facility] 08-10-2024 08:22-0400 [facility] 08-10-2024 08:00-0400 Body temperature 98.24 [degF] [facility] 08-10-2024 08:00-0400 Diastolic blood pressure 56 mm[Hg] [facility] 08-10-2024 08:00-0400 Heart rate 78 /min [facility] 08-10-2024 08:00-0400 Respiratory rate 20 /min [facility] 08-10-2024 08:00-0400 Systolic blood pressure 121 mm[Hg] [facility] 08-10-2024 06:00-0400 Blood Pressure Location [facility] 08-10-2024 06:00-0400 Body temperature 98.42 [degF] [facility] 06:00-0400 Diastolic blood pressure 67 mm[Hg] [facility] 08-10-2024 06:00-0400 Heart rate 80 /min [facility] 08-10-2024 06:00-0400 Mean blood pressure 94 mm[Hg] [facility] 08-10-2024 06:00-0400 Respiratory rate 16 /min [facility] 08-10-2024 06:00-0400 SaO2% (BldA) [Mass fraction] 96 % [facility] 08-10-2024 06:00-0400 Systolic blood pressure 149 mm[Hg] [facility] 08-10-2024 00:45-0400 Blood Pressure Location [facility] 08-10-2024 00:45-0400 Body temperature 98.6 [degF] [facility] 08-10-2024 00:45-0400 Diastolic blood pressure 71 mm[Hg] [facility] 08-10-2024 00:45-0400 Heart rate 84 /min [facility] 08-10-2024 00:45-0400 Mean blood pressure 95 mm[Hg] [facility] 08-10-2024 00:45-0400 Respiratory rate 16 /min [facility] 08-10-2024 00:45-0400 Systolic blood pressure 142 mm[Hg] [facility] 08-09-2024 16:31-0400 Body temperature 98.6 [degF] [facility] 08-09-2024 16:31-0400 Mean blood pressure 92 mm[Hg] [facility] 08-09-2024 14:25-0400 Heart rate 57 /min [facility] 14:25-0400 Mean blood pressure 90 mm[Hg] [facility] 08:35-0400 Heart rate 85 /min [facility] 08-08-2024 10:45-0400 Blood Pressure Location [facility]ANNA[facility] NKANSAH-AMANKRA [facility] 08-08-2024 10:45-0400 Diastolic blood pressure 62 mm[Hg] HANNAH NKANSAH-AMANKRA [facility] 08-08-2024 10:45-0400 Heart rate 82 /min HANNAH NKANSAH-AMANKRA [facility] 08-08-2024 10:45-0400 Systolic blood pressure 101 mm[Hg] HANNAH NKANSAH-AMANKRA [facility] 08-05-2024 09:38-0400 Body height 162.6 cm Jared Hedrick MD Work Phone: [facility] 08-05-2024 09:38-0400 Body mass index (BMI) [Ratio] 24.55 kg/m2 Jared Hedrick MD Work Phone: [facility] 08-05-2024 09:38-0400 Body weight 64.86 kg Jared Hedrick MD Work Phone: [facility] 08-05-2024 09:38-0400 Diastolic blood pressure 60 mm[Hg] Jared Hedrick MD Work Phone: [facility] 08-05-2024 09:38-0400 Heart rate 88 /min Jared Hedrick MD Work Phone: [facility] 08-05-2024 09:38-0400 SaO2% (BldA) [Mass fraction] 97 % Jared Hedrick MD Work Phone: [facility] 08-05-2024 09:38-0400 Systolic blood pressure 112 mm[Hg] Jared Hedrick MD Work Phone: [facility] 07-30-2024 14:42-0400 Heart rate 65 /min Bacilio Danielscker [facility] 07-30-2024 14:42-0400 SaO2% (BldA) [Mass fraction] 97 % Bacilio Faheem [facility] 07-30-2024 14:42-0400 Diastolic blood pressure 63 mm[Hg] Bacilio Faheem [facility] 07-30-2024 14:42-0400 Mean blood pressure 94 mm[Hg] Bacilio Faheem [facility] 07-30-2024 14:42-0400 Systolic blood pressure 156 mm[Hg] Bacilio Faheem [facility] 07-30-2024 14:41-0400 Respiratory rate 18 /min Bacilio Faheem [facility] 07-30-2024 14:03-0400 Heart rate 70 /min Bacilio Danielscker [facility] 07-30-2024 14:03-0400 SaO2% (BldA) [Mass fraction] 96 % Bacilio Faheem [facility] 07-30-2024 14:03-0400 Diastolic blood pressure 55 mm[Hg] Bacilio Faheem [facility] 07-30-2024 14:03-0400 Mean blood pressure 81 mm[Hg] Bacilio Faheem [facility] 07-30-2024 14:03-0400 Systolic blood pressure 132 mm[Hg] Bacilio Danielscker [facility] 07-30-2024 14:03-0400 Respiratory rate 18 /min Bacilio Danielscker [facility] 07-30-2024 13:52-0400 Blood Pressure Location Bacilio Faheem [facility] 07-30-2024 13:52-0400 Body temperature 98.06 [degF] Bacilio Danielscker [facility] 07-30-2024 13:52-0400 Diastolic blood pressure 58 mm[Hg] Bacilio Danielscker [facility] 07-30-2024 13:52-0400 Heart rate 68 /min Bacilio Danielscker [facility] 07-30-2024 13:52-0400 Mean blood pressure 87 mm[Hg] Bacilio Danielscker [facility] 07-30-2024 13:52-0400 Respiratory rate 12 /min Bacilio Danielscker [facility] 07-30-2024 13:52-0400 Systolic blood pressure 146 mm[Hg] Bacilio Danielscker [facility] 07-30-2024 13:38-0400 Blood Pressure Location Bacilio Danielscker [facility] 07-30-2024 13:38-0400 Mean blood pressure 89 mm[Hg] Bacilio Danielscker [facility] 07-30-2024 13:38-0400 Respiratory rate 12 /min Baciloi Faheem [facility] 07-30-2024 13:33-0400 Blood Pressure Location Bacilio Faheem [facility] 07-30-2024 13:33-0400 Mean blood pressure 87 mm[Hg] Bacilio Mayen [facility] 07-30-2024 13:33-0400 Respiratory rate 13 /min Bacilio Mayen [facility] 07-30-2024 13:23-0400 Body temperature 97.88 [degF] Bacilio Mayen [facility] 07-30-2024 13:15-0400 Respiratory rate 14 /min Bacilio Mayen [facility] 07-30-2024 11:51-0400 Body temperature 98.24 [degF] Bacilio Mayen [facility] 07-30-2024 11:51-0400 Mean blood pressure 89 mm[Hg] Bacilio Mayen [facility] 07-30-2024 08:14-0400 Body temperature 98.06 [degF] Bacilio Mayen [facility] 07-30-2024 08:14-0400 Heart rate 72 /min Bacilio Mayen [facility] 07-24-2024 12:15-0400 Blood Pressure Location [employer] mySBXjessicali [facility] 07-24-2024 12:15-0400 Diastolic blood pressure 77 mm[Hg] Abbie Mojessicali [facility] 07-24-2024 12:15-0400 Heart rate 101 /min Mohamad Mojessicali [facility] 07-24-2024 12:15-0400 Respiratory rate 16 /min Mohamad Mojessicali [facility] 07-24-2024 12:15-0400 Systolic blood pressure 126 mm[Hg] Abbie Mayorga [facility] 06-11-2024 13:28-0400 Blood Pressure Location ÁNGELA DEBBIE [facility] 06-11-2024 13:28-0400 Body temperature 98.24 [degF] ÁNGELA DEBBIE [facility] 06-11-2024 13:28-0400 Diastolic blood pressure 61 mm[Hg] ÁNGELA DEBBIE [facility] 06-11-2024 13:28-0400 Heart rate 60 /min ÁNGELA DEBBIE [facility] 06-11-2024 13:28-0400 Respiratory rate 16 /min ÁNGELA DEBBIE [facility] 06-11-2024 13:28-0400 Systolic blood pressure 118 mm[Hg] ÁNGELA DEBBIE [facility] 04-18-2024 09:40-0400 Blood Pressure Location Mohamad Mouchli [facility] 04-18-2024 09:40-0400 Diastolic blood pressure 68 mm[Hg] Mohamad Mouchli [facility] 04-18-2024 09:40-0400 Heart rate 84 /min Mohamad Mouchli [facility] 04-18-2024 09:40-0400 Respiratory rate 16 /min Mohamad Mouchli [facility] 04-18-2024 09:40-0400 Systolic blood pressure 119 mm[Hg] Mohamad Mouchli [facility] 01-30-2024 10:03-0400 Diastolic blood pressure 53 mm[Hg] Mohamad Mouchli [facility] 01-30-2024 10:03-0400 Heart rate 65 /min Mohamad Mouchli [facility] 01-30-2024 10:03-0400 Mean blood pressure 79 mm[Hg] Mohamad Mouchli [facility] 01-30-2024 10:03-0400 Respiratory rate 16 /min Mohamad Mouchli [facility] 01-30-2024 10:03-0400 SaO2% (BldA) [Mass fraction] 98 % Mohamad Mouchli [facility] 01-30-2024 10:03-0400 Systolic blood pressure 131 mm[Hg] Mohamad Mouchli [facility] 01-30-2024 09:50-0400 Diastolic blood pressure 59 mm[Hg] Mohamad Mouchli [facility] 01-30-2024 09:50-0400 Heart rate 65 /min Mohamad Mouchli [facility] 01-30-2024 09:50-0400 Mean blood pressure 81 mm[Hg] Mohamad Mouchli [facility] 01-30-2024 09:50-0400 Respiratory rate 13 /min Mohamad Mouchli [facility] 01-30-2024 09:50-0400 SaO2% (BldA) [Mass fraction] 98 % Mohamad Mouchli [facility] 04-02-2024 09:50-0400 Systolic blood pressure 125 mm[Hg] Mohamad Mouchli [facility] 01-30-2024 09:45-0400 Diastolic blood pressure 60 mm[Hg] Mohamad Mouchli [facility] 01-30-2024 09:45-0400 Heart rate 96 /min Mohamad Mouchli [facility] 01-30-2024 09:45-0400 Mean blood pressure 82 mm[Hg] Mohamad Mouchli [facility] 01-30-2024 09:45-0400 Respiratory rate 20 /min Mohamad Mouchli [facility] 01-30-2024 09:45-0400 SaO2% (BldA) [Mass fraction] 99 % Mohamad Mouchli [facility] 01-30-2024 09:45-0400 Systolic blood pressure 125 mm[Hg] Mohamad Mouchli [facility] 01-30-2024 09:38-0400 Body temperature 97.34 [degF] Mohamad Mouchli [facility] 01-30-2024 09:30-0400 Respiratory rate 15 /min Mohamad Mouchli [facility] 01-30-2024 09:25-0400 Respiratory rate 16 /min Mohamad Mouchli [facility] 01-30-2024 09:20-0400 Respiratory rate 16 /min Mohamad Mouchli [facility] 01-30-2024 08:02-0400 Blood Pressure Location Mohamad Mouchli [facility] 01-30-2024 08:02-0400 Body temperature 97.16 [degF] Abbie Mayorga [facility] 01-17-2024 14:37-0400 Diastolic blood pressure 78 mm[Hg] Dulectimmy StapletonChelsie [facility] 01-17-2024 14:37-0400 Mean blood pressure 98 mm[Hg] Dulcetimmy StapletonChelsie [facility] 01-17-2024 14:37-0400 Systolic blood pressure 138 mm[Hg] Dulcetimmy StapletonChelsie [facility] 01-17-2024 14:28-0400 Blood Pressure Location Dulcetimmy StapletonChelsie [facility] 01-17-2024 14:28-0400 Body temperature 97.34 [degF] Dulce Chelsie [facility] 01-17-2024 14:28-0400 Diastolic blood pressure 77 mm[Hg] Dulce Chelsie [facility] 01-17-2024 14:28-0400 Heart rate 79 /min Dulce Stapletonmetz [facility] 01-17-2024 14:28-0400 Systolic blood pressure 141 mm[Hg] Dulce Chelsie [facility] 08-14-2023 11:15-0400 Body height 162.56 cm Filemno Villarreal Other [email or web address] Other 08-14-2023 11:15-0400 Body mass index (BMI) [Ratio] 27.12 kg/m2 Filemon Villarreal Other [email or web address] Other 10-16-2023 11:15-0400 Body temperature 96.5 [degF] Christopher Cherelle Other [email or web address] Other 08-14-2023 11:15-0400 Body weight 71.67 kg Christopher Cherelle Other [email or web address] Other 08-14-2023 11:15-0400 Diastolic blood pressure 70 mm[Hg] Christopher Cherelle Other [email or web address] Other 08-14-2023 11:15-0400 Respiratory rate 20 /min Christangellaer Cherelle Other [email or web address] Other 08-14-2023 11:15-0400 SaO2% (BldA) [Mass fraction] 99 % Christangellaer Cherelle Other [email or web address] Other 08-14-2023 11:15-0400 Systolic blood pressure 132 mm[Hg] Christangellaer Cherelle Other [email or web address] Other 08-15-2022 12:30-0400 Body height 162.56 cm Christangellaer Cherelle Other [email or web address] Other 08-15-2022 12:30-0400 Body mass index (BMI) [Ratio] 26.09 kg/m2 Christangellaer Cherelle Other [email or web address] Other 08-15-2022 12:30-0400 Body temperature 97.4 [degF] Christopher Cherelle Other [email or web address] Other 08-15-2022 12:30-0400 Body weight 68.95 kg Christangellaer Cherelle Other [email or web address] Other 08-15-2022 12:30-0400 Diastolic blood pressure 64 mm[Hg] Filemon Mitchellno Other [email or web address] Other 08-15-2022 12:30-0400 Respiratory rate 20 /min Filemon Pattendano Other [email or web address] Other 08-15-2022 12:30-0400 SaO2% (BldA) [Mass fraction] 97 % Filemon Mitchellno Other [email or web address] Other 08-15-2022 12:30-0400 Systolic blood pressure 120 mm[Hg] Filemon Mitchellno Other [email or web address] Other 05-24-2022 15:55-0400 Body temperature 97.9 [degF] MD Jared Hedrick Work Phone: [facility] 05-24-2022 15:55-0400 Diastolic blood pressure 41 mm[Hg] MD Jared Hedrick Work Phone: [facility] 05-24-2022 15:55-0400 Heart rate 66 /min MD Jared Hedrick Work Phone: [facility] 05-24-2022 15:55-0400 Respiratory rate 16 /min MD Jared Hedrick Work Phone: [facility] 05-24-2022 15:55-0400 SaO2% (BldA) [Mass fraction] 99 % MD Jared Hedrick Work Phone: [facility] 05-24-2022 15:55-0400 Systolic blood pressure 130 mm[Hg] MD Jared Hedrick Work Phone: [facility] Encounters Encounter Date Encounter Type Care Provider Facility Start: 07-04-2025 End: 07-04-2025 Kamila Brown DO Work Phone: [facility] Start: 07-04-2025 End: 07-04-2025 Bamboo flowsheet Mayuri Brown DO Work Phone: [facility] Start: 07-04-2025 End: 07-04-2025 ambulatory MAYURI BROWN Not Available Start: 05-05-2025 End: 05-05-2025 ambulatory Abbie Mayorga Facility:[facility] Start: 05-05-2025 End: 05-05-2025 Patient encounter procedure Abbie Mayorga [facility] Start: 04-11-2025 End: 04-11-2025 ambulatory JOSE LIAO Not Available Start: 03-10-2025 End: 03-12-2025 Orders Only Jose Liao GEAR NICKER Work Phone: [facility] External Department Unsolicited Start: 02-10-2025 End: 02-10-2025 Office outpatient visit 25 minutes Jose Liao GEAR NICKER Work Phone: [facility] Comment on above: Type 2 diabetes eda itus with diabetic neuropathy, without long-term current use of insulin (CMS/HCC) (Primary Dx); Essential hypertension (CMS/HCC); Mixed hyperlipidemia (CMS/HCC); Generalized anxiety disorder (CMS/HCC); Acquired hypothyroidism (CMS/HCC); Gastroesophageal reflux disease without esophagitis; Primary insomnia; Vitamin D deficiency; Vitamin B12 deficiency (non anemic); History of pulmonary embolism; Medicare annual wellness visit, subsequent; ACP (advance care planning); Medication management; Diarrhea, unspecified type; Breast screening Start: 02-10-2025 End: 02-10-2025 Patient encounter procedure Jose Liao GEAR NICKER Work Phone: [facility] Healthcare Start: 02-10-2025 End: 02-10-2025 ambulatory JOSE LIAO Not Available Start: 02-06-2025 End: 02-06-2025 ambulatory Maria Esther Sharp Facility:[facility] Start: 02-05-2025 End: 02-05-2025 Clinisync Result Encounter Generic External Data Provider [facility] External Department Unsolicited Start: 02-05-2025 End: 02-05-2025 Clinisync Result Encounter Generic External Data Provider [facility] External Department Unsolicited Start: 12-03-2024 ambulatory HANNAH NKANSAH-AMANKRA Facility:[facility] Start: 09-30-2024 End: 09-30-2024 ambulatory HANNAH NKANSAH-AMANKRA Facility: [facility] Start: 09-30-2024 End: 09-30-2024 Patient encounter procedure HANNAH NKANSAH-AMANKRA [facility] Start: 09-23-2024 End: 09-23-2024 ambulatory HANNAH NKANSAH-AMANKRA Facility:[facility] Start: 09-23-2024 End: 09-23-2024 Patient encounter procedure HANNAH NKANSAH-AMANKRA [facility] Start: 09-10-2024 ambulatory [facility] [place] Start: 08-20-2024 End: 08-20-2024 ambulatory HANNAH NKANSAH-AMANKRA Facility:[facility] Start: 08-20-2024 End: 08-20-2024 Patient encounter procedure HANNAH NKANSAH-AMANKRA [facility] [place] Start: 08-15-2024 End: 08-15-2024 Admission to same day surgery center HANNAH VILLAFANAAH-AMANKRA [facility] Start: 08-15-2024 End: 08-15-2024 ambulatory HANNAH NKANSAH-AMANKRA Facility:[facility] Start: 08-12-2024 End: 08-12-2024 ambulatory [facility] Work Phone: Start: 08-12-2024 End: 08-12-2024 Patient encounter procedure [facility] Work Phone: Start: 08-09-2024 End: 08-10-2024 Evaluation and management of inpatient MD Mart Luna Facility:[facility] Start: 08-09-2024 Emergency department patient visit Lisa Dumont Facility:[facility] Start: 08-09-2024 End: 08-10-2024 Evaluation and management of inpatient Mart Luna [facility] Start: 08-08-2024 End: 08-10-2024 Pre-admission assessment HANNAHMANFRED VILLAFANAYARIELMARYCHUY [facility] Start: 08-08-2024 End: 08-08-2024 ambulatory HANNAH ZULEYKAJOSE Facility:[facility] Start: 08-08-2024 End: 08-08-2024 Patient encounter procedure HANNAHMANFRED CHACON [facility] Start: 08-05-2024 End: 08-05-2024 Office outpatient visit 25 minutes Jared Hedrick MD Work Phone: [facility] Comment on above: Type 2 diabetes eda itus with diabetic neuropathy, without long-term current use of insulin (CMS/HCC) (Primary Dx); Essential hypertension (CMS/HCC); Generalized anxiety disorder (CMS/HCC); Acquired hypothyroidism (CMS/HCC); Kidney stone; History of pulmonary embolism; Vitamin B12 deficiency (non anemic); Fecal impaction (CMS/HCC); Hypokalemia; Need for immunization against influenza; Mixed hyperlipidemia (CMS/HCC) Start: 08-05-2024 End: 08-05-2024 ambulatory JARED HEDRICK Not Available Start: 07-31-2024 End: 08-07-2024 Pre-admission assessment HANNAH ANA [facility] Start: 07-31-2024 End: 08-01-2024 Orders Only Blanche Lujan Angelica [employer] Work Phone: [facility] External Department Unsolicited Start: 07-30-2024 End: 07-30-2024 ambulatory Bacilio Mayen Facility:[facility] Start: 07-30-2024 Emergency department patient visit Lisa Dumont Facility:[facility] Start: 07-30-2024 End: 07-30-2024 Evaluation and management of inpatient Bacilio RosyLuis Alberto Faheem [facility] Start: 07-24-2024 End: 07-24-2024 ambulatory Abbie Mayorga Facility:[facility] Start: 07-24-2024 End: 07-24-2024 Patient encounter procedure Abbie Mayorga [facility] Start: 06-11-2024 End: 06-11-2024 ambulatory ÁNGELA JUAREZ Facility:[facility] Start: 06-11-2024 End: 06-11-2024 Lab Drop off ÁNGELA GUANRY [facility] Start: 06-11-2024 End: 06-11-2024 ambulatory [facility] Start: 06-11-2024 End: 06-11-2024 Patient encounter procedure ÁNGELA GUANRY [facility] Start: 04-18-2024 End: 04-18-2024 ambulatory Abbie Mayorga Facility:[facility] Start: 04-18-2024 End: 04-18-2024 Patient encounter procedure Abbie Mayorga [facility] Start: 02-23-2024 End: 02-24-2024 ambulatory DIANA RING [facility] Start: 01-30-2024 End: 01-30-2024 ambulatory Abbie Mayorga Facility:[facility] Start: 01-30-2024 End: 01-30-2024 Patient encounter procedure Abbie Mayorga [facility] Start: 01-17-2024 End: 01-17-2024 ambulatory Dulce Holguin Facility:[facility] Start: 01-17-2024 End: 01-17-2024 Patient encounter procedure Dulce Maria Isabel Chelsie [facility] Start: 01-11-2024 ambulatory Dulcetimmy Flynnz Facility :[facility] Start: 12-28-2023 ambulatory [facility]sie [facility] Start: 09-04-2023 End: 09-04-2023 ambulatory Rashida ELDRIDGE Facility:[facility] Start: 09-04-2023 End: 09-04-2023 Patient encounter procedure Rasihda ELDRIDGE [facility] Start: 08-14-2023 End: 08-14-2023 ambulatory Filemon Villarreal Other [email or web address] Other Start: 08-14-2023 Office outpatient vi sit 15 minutes Filemon Villarreal [facility] Start: 02-20-2023 ambulatory LOVE PATEL Facility :[facility]KNOWN Start: 01-10-2023 End: 01-10-2023 Patient encounter procedure Rashida ELDRIDGE [facility] Start: 12-12-2022 End: 12-13-[address] RASHIDA ELDRIDGE . Facility:[facility] Start: 08-15-2022 End: 08-15-2022 ambulatory Filemon Villarreal Other [facility] [employer] Other Start: 08-15-2022 Office outpatient vi sit 15 minutes Filemon Villarreal [facility] Start: 05-24-2022 End: 05-24-2022 Discharged Recurring MD Jared Hedrick Work Phone: [facility] Start: 04-18-2022 End: 04-19-[address] JARED HEDRICK Facility:[facility] Start: 03-03-2022 End: 03-03-2022 ambulatory MAYURI BROWN Facility:[facility] Procedures Date Procedure Procedure Detail Performing Clinician Start: 07-04-2025 Computerized ophthalmic imaging retina Mayuri Brown DO Work Phone: Start: 07-04-2025 End: 07-04-2025 [facility] medical xm&eval comprhnsv estab pt 1/> Intermediate stage nonexudative age-related macular degeneration of left eye Mayuri Brown DO Work Phone: Comment on above: Intermediate stage nonexudative age-rela jody macular degeneration of left eye (Primary Dx); Type 2 diabetes mellitus with diabetic neuropathy, without long-term current use of insulin (HCC); Bilateral posterior capsular opacification; Dry eyes Start: 03-10-2025 Elastase pancreatic fecal qual/semi-nikos Jose Liao [employer] Work Phone: Start: 02-05-2025 XR ABDOMEN 1V Generic External Data Provider Start: 08-15-2024 Cystoscopy HANNAH CHACON Start: 07-31-2024 Basic metabolic panel calcium total Blanche Dominguez [employer] Work Phone: Start: 07-31-2024 SPECIMEN STATUS REPORT Blanche Dominguez [employer] Work Phone: Start: 07-30-2024 CT Abdomen limited WO contrast HANNAH CHACON Start: 07-30-2024 Cystoscopy Bacilio Mayen Start: 02-23-2024 Esophagogastroduodenoscopy HANNAH CHACON Start: 01-30-2024 Colonoscopy Abbie Mayorga Start: 01-30-2024 Esophagogastroduodenoscopy Abbie valentine Start: 01-13-2017 Colonoscopy Dulce Holguin Start: 04-27-2016 Cystoscopy Rashida ELDRIDGE Start: 04-20-2012 Cystoscopic removal of ureteric stent Rashida ELDRIDGE Start: 04-06-2012 Cystoscopic insertion of ureteric stent Rashida ELDRIDGE Start: 04-01-2012 Extracorporeal shockwave lithotripsy of calculus of kidney Rashidaanette ELDRIDGE Start: 09-29-2010 Cystoscopy and retrograde pyelography Rashida ELDRIDGE Start: 12-31-2009 Extracorporeal shockwave lithotripsy of calculus of kidney Rashidaanette ELDRIDGE Start: 12-16-2009 Extracorporeal shockwave lithotripsy of calculus of kidney Rashidaanette ELDRIDGE Start: 07-30-2009 Cystoscopic laser lithotripsy of ureteric calculus Rashidaanette ELDRIDGE Start: 07-30-2009 Cystoscopic removal of ureteric [...] Start: 10-30-1998 Laminectomy with spinal fusion Rashida W NIKOLAYFAYE Appendectomy Rashida ELDRIDGE Bursectomy Rashida ELDRIDGE Cholecystectomy Rashidaanette HERNANDEZ FAYE Decompression of median nerve Rashida ELDRIDGE Education about post operative care after adenotonsillectomy Rashida ELDRIDGE History of cholecystectomy S/P cholecyste ctomy Mohamad Mouchli Hysterectomy Rashida ELDRIDGE Nasal sinus procedure Gurpreet ELDRIDGE Operative procedure on hand Rashida ELDRIDGE Repair of meniscus Rashida GUADALUPE Plan of Treatment Date Care Activity Detail Author Start: 07-04-2027 Glaucoma screening Diabetes: R etinopathy Screening [facility] Start: 02-10-2026 Medicare Annual Wellness (AWV) Medicare Annual Wellness (AWV) [facility] Start: 02-04-2026 Urine screening for protein Diabetes: Urine Protein Screening [facility] Start: 08-28-2025 Glaucoma screening Diabetes: R etinopathy Screening [facility] Start: 08-13-2025 End: 08-13-2025 Patient encounter procedure [facility] Start: 08-12-2025 End: 02-10-2026 Cobalamin (Vitamin B12) [Mass/volume] in Serum or Plasma Vitamin B12 Lab Routine Type 2 diabetes mellitus with diabetic neuropathy, without long-term current use of insulin ([facility]) Medication management Expected: 08/12/2025, Expires: 02/10/2026 [facility] Comment on above: Expected: 08/12/2025 , Expires: 02/10/2026 Start: 08-12-2025 End: 02-10-2026 Comprehensive metabolic 2000 panel - Serum or Plasma Comprehensive metabolic panel Lab Routine Essential hypertension ([facility]) Expected: 08/12/2025, Expires: 02/10/2026 [facility] Comment on above: Expected: 08/12/2025 , Expires: 02/10/2026 Start: 08-12-2025 End: 02-10-2026 Hemoglobin a1c with eag Hemoglobin a1c with eag Lab Routine Type 2 diabetes mellitus with diabetic neuropathy, without long-term current use of insulin ([facility]) Expected: 08/12/2025, Expires: 02/10/2026 [facility] Comment on above: Expected: 08/12/2025 , Expires: 02/10/2026 Start: 08-12-2025 End: 02-10-2026 Lipid 1996 panel - Serum or Plasma Lipid panel Lab Routine Mixed hyperlipidemia ([facility]) Expected: 08/12/2025, Expires: 02/10/2026 [facility] Work Phone: Comment on above: Expected: 08/12/2025 , Expires: 02/10/2026 Start: 08-11-2025 ambulatory Ambulatory Facility:[facility] Start: 07-31-2025 Urine screening for protein Diabetes: Urine Protein Screening [facility] Start: 07-30-2025 Urine screening for protein Diabetes: Urine Protein Screening [facility] Start: 07-04-2025 End: 07-04-2025 Patient encounter procedure 07/04/2025 10:45 AM EDT Office Visit [facility] [address] [place] [id number] Mayuri Brown DO [address] [place] [address] Arrived [facility] Comment on above: Arrived Start: 06-30-2025 Influenza vaccination Influenza Vacc ine (#1) [facility] Healthcare Start: 05-06-2025 Hemoglobin A1c measurement Diabetes: Hemoglobin A1C [facility] Start: 04-11-2025 End: 04-11-2025 Professional / ancillary services management 04/11/2025 11:00 AM EDT Ancillary Procedure [facility] [address] [place] [phone] [facility] Start: 02-10-2025 End: 05-12-2025 DBT Breast - bilateral screening Bilateral screening mammogram with tomosynthesis Imaging Routine Breast screening Expected: 02/10/2025 (Approximate), Expires: 05/12/2025 [facility] Comment on above: Expected: 02/10/2025 (Approximate), Expires: 05/12/2025 Start: 02-10-2025 End: 02-10-2026 Pancreatic elastase, fecal Pancreatic elastase, fecal Lab Routine Diarrhea, unspecified type Expected: 02/10/2025 (Approximate), Expires: 02/10/2026 [facility] Healthcare Comment on above: Expected: 02/10/2025 (Approximate), Expires: 02/10/2026 Start: 02-10-2025 End: 02-10-2025 Patient encounter procedure 02/10/2025 9:45 AM EDT Office Visit [facility] [address] [place] [phone] Blanche Dominguez, GEAR NICKER [address] [place] [address] [facility] Start: 02-03-2025 End: 08-05-2025 CBC W Auto Differential panel - Blood CBC and differential Lab Routine Type 2 diabetes mellitus with diabetic neuropathy, without long-term current use of insulin ([facility]) Expected: 02/03/2025, Expires: 08/05/2025 [facility] Comment on above: Expected: 02/03/2025 , Expires: 08/05/2025 Start: 02-03-2025 End: 08-05-2025 Comprehensive metabolic 2000 panel - Serum or Plasma Comprehensive metabolic panel Lab Routine Type 2 diabetes mellitus with diabetic neuropathy, without long-term current use of insulin ([facility]) Essential hypertension ([facility]) Expected: 02/03/2025, Expires: 08/05/2025 [facility] Work Phone: Comment on above: Expected: 02/03/2025 , Expires: 08/05/2025 Start: 02-03-2025 End: 08-05-2025 Hemoglobin a1c with eag Hemoglobin a1c with eag Lab Routine Type 2 diabetes mellitus with diabetic neuropathy, without long-term current use of insulin ([facility]) Expected: 02/03/2025, Expires: 08/05/2025 [facility] Comment on above: Expected: 02/03/2025 , Expires: 08/05/2025 Start: 02-03-2025 End: 08-05-2025 Lipid 1996 panel - Serum or Plasma Lipid panel Lab Routine Mixed hyperlipidemia ([facility]) Expected: 02/03/2025, Expires: 08/05/2025 [facility] Comment on above: Expected: 02/03/2025 , Expires: 08/05/2025 Start: 02-03-2025 End: 08-05-2025 Microalbumin/Creatinine panel in random Urine Microalbumin / creatinine urine ratio Lab Routine Type 2 diabetes mellitus with diabetic neuropathy, without long-term current use of insulin ([facility]) Expected: 02/03/2025, Expires: 08/05/2025 [facility] Comment on above: Expected: 02/03/2025 , Expires: 08/05/2025 Start: 02-03-2025 End: 08-05-2025 Thyrotropin [Units/volume] in Serum or Plasma TSH Lab Routine Acquired hypothyroidism ([facility]) Expected: 02/03/2025, Expires: 08/05/2025 [facility] Comment on above: Expected: 02/03/2025 , Expires: 08/05/2025 Start: 02-03-2025 End: 08-05-2025 Urinalysis complete panel - Urine Urinalysis with microscopic Lab Routine Type 2 diabetes mellitus with diabetic neuropathy, without long-term current use of insulin ([facility]) Expected: 02/03/2025, Expires: 08/05/2025 [facility] Comment on above: Expected: 02/03/2025 , Expires: 08/05/2025 Start: 01-11-2025 Medicare Annual Wellness (AWV) Medicare Annual Wellness (AWV) [facility] Healthcare Start: 01-09-2025 Urine screening for protein Diabetes: Urine Protein Screening [facility] Start: 10-31-2024 Hemoglobin A1c measurement Diabetes: Hemoglobin A1C [facility] Start: 08-05-2024 End: 08-05-2024 Patient encounter procedure 08/05/2024 9:45 AM EDT Office Visit [facility] [address] [place] [phone] Jared Hedrick MD [address] [place] [address] [facility] Start: 07-30-2024 Hemoglobin A1c measurement Diabetes: Hemoglobin A1C [facility] Start: 06-30-2024 Influenza vaccination Influenza Vacc ine (#1) [facility] Start: 01-04-2024 Medicare Annual Wellness (AWV) Medicare Annual Wellness (AWV) [facility] Start: 01-17-2020 Pneumococcal Vaccine : 65+ Years (3 of 3 - PCV20 or PCV21) Pneumococcal Vaccine: 65+ Years (3 of 3 - PCV20 or PCV21) [facility] Start: 03-13-2015 Pneumococcal Vaccine : 65+ Years (3 of 3 - PPSV23 or PCV20) Pneumococcal Vaccine: 65+ Years (3 of 3 - PPSV23 or PCV20) [facility] Start: 03-13-2015 Pneumococcal Vaccine : 65+ Years (3 of 3 - PPSV23, PCV20 or PCV21) Pneumococcal Vaccine: 65+ Years (3 of 3 - PPSV23, PCV20 or PCV21) [facility] Immunizations Immunization Date Immunization Notes Care Provider Fa cility 08-05-2024 influenza virus vaccine, unspecified formulation HANNAH GARDINERMILDREDCORTEZMomoZAKIAMEKA [facility] 08-05-2024 Seasonal trivalent influenza vaccine, adjuvanted, preservative free Jared Hedrick MD Work Phone: [facility] 07-11-2023 influenza virus vaccine, unspecified formulation Dulce Stapletonmetz [facility] 07-11-2023 Influenza, Seasonal, Quadrivalent, Adjuvanted Blanche Risaliti GEAR NICKER Work Phone: [facility] 08-27-2022 Moderna SARS-CoV-2 50mcg/0.5mL Booster Blanche Risaliti GEAR NICKER Work Phone: [facility] 08-27-2022 SARS-CoV-2 (COVID-19 ) [id number] Rashida ELDRIDGE [facility] 08-11-2022 influenza virus vaccine, unspecified formulation Rashida ELDRIDGE [facility] 08-11-2022 influenza, high dose seasonal, preservative-free Blanche Risaliti GEAR NICKER Work Phone: [facility] 11-01-2021 zoster vaccine recombinant Rashida ELDRIDGE [facility] 08-17-2021 influenza virus vaccine, unspecified formulation Rashida ELDRIDGE [facility] 08-17-2021 influenza, high dose seasonal, preservative-free Blanche Risaliti GEAR NICKER Work Phone: [facility] 08-04-2021 SARS-CoV-2 (COVID-19 ) mRNA BNT-162b2 vax Rashida ELDRIDGE [facility] Comment on above: Result Comment: 2022: [id number] 05-27-2021 zoster vaccine recombinant Rashida ELDRIDGE [facility] 12-18-2020 COVID-19 Vaccine Pfi zer - Documentation Purposes Only Filemon Villarreal Other [facility] Comment on above: Result Comment: 2022: [id number] 11-27-2020 COVID-19 Vaccine Pfi zer - Documentation Purposes Only Filemon Pattendano Other [facility] Comment on above: Result Comment: 2022: [id number] 10-30-2020 SARS-CoV-2 (COVID-19 ) mRNA BNT-162b2 vax Rashida EVRGR [facility] Comment on above: Result Comment: pt i s fully vaccinated and has had a booster also but does not know the dates 07-15-2020 influenza virus vaccine, unspecified formulation [facility] 11-04-2019 influenza virus vaccine, live, attenuated, for intranasal use Rashida EVRGR [facility] 07-11-2019 influenza virus vaccine, unspecified formulation [facility] 07-11-2019 Seasonal trivalent influenza vaccine, adjuvanted, preservative free Blanche Risaliti GEAR NICKER Work Phone: [facility] 07-12-2018 influenza virus vaccine, unspecified formulation [facility] 07-12-2018 Seasonal trivalent influenza vaccine, adjuvanted, preservative free Blanche Risaliti GEAR NICKER Work Phone: [facility] 07-19-2017 influenza virus vaccine, unspecified formulation [facility] 07-19-2017 influenza, high dose seasonal, preservative-free Blanche Risaliti GEAR NICKER Work Phone: [facility] 07-19-2017 influenza, injectabl e, quadrivalent, preservative free Blanche Risaliti GEAR NICKER Work Phone: [facility] 07-14-2016 influenza virus vaccine, unspecified formulation Rashida ELDRIDGE [facility] 07-14-2016 influenza, injectabl e, quadrivalent, preservative free Blanche Risaliti GEAR NICKER Work Phone: [facility] 01-16-2015 pneumococcal conjuga te vaccine, 13 valent Blanche Risaliti GEAR NICKER Work Phone: [facility] 07-07-2014 influenza, high dose seasonal, preservative-free Blanche Risaliti GEAR NICKER Work Phone: [facility] 10-30-2011 zoster vaccine, live Blanche Ri saliti GEAR NICKER Work Phone: [facility] 10-30-2007 pneumococcal polysaccharide vaccine, 23 valent Blanche Risaliti GEAR NICKER Work Phone: [facility] Payers Date Payer Category Payer Medicare [id number] 2021 Medicare (Managed Care) [facility] [id number] 2021 Unknown [employer] [facility] [id number] 2021-Present [address] [place] [address] [id number] [id number] 2021 Medicare [id number] 2021 Unknown [id number] 1945 Unknown [id number] 2.16.840.1.786416.3.579. 2.593 1943 Unknown [id number] 2.16.840.1.123870.3.579. 2.593 1943 Unknown [id number] 2.16.840.1.760791.3.579. 2.593 1943 Unknown [id number] 2.16.840.1.749301.3.579. 2.693 1943 Unknown [id number] 2.16.840.1.920565.3.579. 2.727 1943 Unknown [id number] 2.16.840.1.439433.3.579. 2.727 1943 Unknown [id number] 2.16.840.1.619258.3.579. 2.727 1943 Unknown [id number] 2.16.840.1.569483.3.579. 2.727 1943 Unknown [id number] 2.16.840.1.817152.3.579. 2.727 1943 Unknown [id number] 2.16.840.1.232685.3.579. 2.727 1943 Unknown [id number] 2.16.840.1.167934.3.579. 2.727 1943 Unknown [id number] 2.16.840.1.475085.3.579. 2.727 1943 Unknown [id number] 2.16.840.1.816442.3.579. 2.727 1943 Unknown [id number] 2.16.840.1.280875.3.579. 2.727 1943 Unknown [id number] 2.16.840.1.347683.3.579. 2.727 1943 Unknown [id number] 2.16.840.1.436314.3.579. 2.727 1943 Unknown [id number] 2.16.840.1.823680.3.579. 2.727 1943 Unknown [id number] 2.16.840.1.870375.3.579. 2.72 1943 Unknown [id number] 2.16.840.1.849191.3.579. 2.727 1943 Unknown [id number] 2.16.840.1.153560.3.579. 2.72 1943 Unknown [id number] 2.16.840.1.012521.3.579. 2.727 1943 Unknown [id number] 2.16.840.1.238531.3.579. 2.727 1943 Unknown [id number] 2.16.840.1.192116.3.579. 2.727 1943 Unknown [id number] 2.16.840.1.760717.3.579. 2.727 1943 Unknown [id number] 2.16.840.1.153133.3.579. 2.727 1943 Unknown [id number] 2.16.840.1.438619.3.579. 2.727 1943 Unknown [id number] 2.16.840.1.478256.3.579. 2.727 1943 Unknown [id number] 2.16.840.1.788020.3.579. 2.727 1943 Unknown [id number] 2.16.840.1.895411.3.579. 2.727 1943 Unknown [id number] 2.16.840.1.468723.3.579. 2.727 1943 Unknown [id number] 2.16.840.1.079460.3.579. 2.727 1943 Unknown [id number] 2.16.840.1.132392.3.579. 2.727 1943 Unknown [id number] 2.16.840.1.876279.3.579. 2.727 1943 Unknown [id number] 2.16.840.1.820910.3.579. 2.1259 1943 Unknown [id number] 2.16.840.1.542135.3.579. 2.1259 1943 Unknown [id number] 2.16.840.1.124816.3.579. 2.1259 1943 Unknown [id number] 2.16.840.1.181088.3.579. 2.1259 Medicare Medicare [id number] Self-pay Self Pay [id number] Unknown [id number] Social History Date Type Detail Facility Start: 04-29-2021 End: 04-03-2023 Tobacco smoking status NHIS Never smoked tobacco (finding) [facility] Start: 1945 Sex Assigned At Female F [facility] Start: 04-29-2024 End: 02-10-2025 Sex Assigned At [facility] Tobacco smoking status Never [facility] Start: 04-03-2023 Tobacco use and exposure Smoke less tobacco non-user [facility] Start: 04-29-2024 End: 07-04-2025 Alcoholic beverage intake Lifetime non-drinker (finding) [facility] Start: 04-29-2024 End: 02-10-2025 History of Social function [facility] Start: 04-13-2023 Alcohol Comment Caffeine intak e: coffee, tea, pop [facility] Start: 1945 Sex assigned at Not on file [facility] Healthcare Sexual Orientation [facility] Start: 02-10-2010 Sex Female (finding) [facility] Medical Equipment Procedure Code Equipment Code Equipment Origin al Text Equipment Identifier Dates CYSTOSCOPY RETROGRADE STENT INSERTION ANA SILVER, HANNAH 07/30/24 Unknown Ureter L FDA Start: 07-30-2024 [id number], [id number] Start: 10-15-2022 CYSTOSCOPY RETROGRADE STENT INSERTION ANA SILVER, HANNAH 07/30/24 Unknown Ureter L FDA Start: 07-30-2024 CYSTOSCOPY RETROGRADE STENT INSERTION ANA SILVER, HANNAH 07/30/24 Unknown Ureter L FDA Start: 07-30-2024 CYSTOSCOPY RETROGRADE STENT INSERTION ANA SILVER, HANNAH 07/30/24 Unknown Ureter L FDA Start: 07-30-2024 CYSTOSCOPY RETROGRADE STENT INSERTION ANA SILVER, HANNAH 07/30/24 Unknown Ureter L FDA Start: 07-30-2024 CYSTOSCOPY RETROGRADE STENT INSERTION ANA SILVER, HANNAH 07/30/24 Unknown Ureter L FDA Start: 07-30-2024 CYSTOSCOPY RETROGRADE STENT INSERTION ANA SILVER, HANNAH 08/15/24 Unknown Ureter L FDA Start: 08-15-2024 CYSTOSCOPY RETROGRADE STENT INSERTION ANA SILVER, HANNAH 07/30/24 Unknown Ureter L FDA Start: 07-30-2024 CYSTOSCOPY RETROGRADE STENT INSERTION ANA SILVER, HANNAH 08/15/24 Unknown Ureter L FDA Start: 08-15-2024 CYSTOSCOPY RETROGRADE STENT INSERTION ANA SILVER, HANNAH 07/30/24 Unknown Ureter L FDA Start: 07-30-2024 CYSTOSCOPY RETROGRADE STENT INSERTION ANA SILVER, HANNAH 08/15/24 Unknown Ureter L FDA Start: 08-15-2024 CYSTOSCOPY RETROGRADE STENT INSERTION ANA SILVER, HANNAH 07/30/24 Unknown Ureter L FDA Start: 07-30-2024 CYSTOSCOPY RETROGRADE STENT INSERTION ANA SILVER, HANNAH 08/15/24 Unknown Ureter L FDA Start: 08-15-2024 CYSTOSCOPY RETROGRADE STENT INSERTION ANA SILVER, HANNAH 07/30/24 Unknown Ureter L FDA Start: 07-30-2024 CYSTOSCOPY RETROGRADE STENT INSERTION ANA SILVER, HANNAH 08/15/24 Unknown Ureter L FDA Start: 08-15-2024 CYSTOSCOPY RETROGRADE STENT INSERTION ANA SILVER, HANNAH 07/30/24 Unknown Ureter L FDA Start: 07-30-2024 CYSTOSCOPY RETROGRADE STENT INSERTION ANA SILVER, HANNAH 08/15/24 Unknown Ureter L FDA Start: 08-15-2024 Functional Status Date Assessment Result Facility 02-10-2025 Patient Health [facility] ionnaire 2 item (PHQ-2) [Reported] [facility] 09-30-2024 Functional Status N/A [facility] 08-12-2024 Functional Status No [facility] 08-09-2024 Functional Status No [facility] 08-09-2024 Functional Status [facility] 08-08-2024 Functional Status N/A [facility] 07-30-2024 Functional Status N/A [facility] 07-24-2024 Functional Status N/A [facility] 06-11-2024 Functional Status N/A [facility] 04-18-2024 Functional Status N/A [facility] 01-30-2024 Functional Status N/A [facility] 01-17-2024 Functional Status N/A [facility] Clinical Notes 12-15-2020 to 07-04-2025 Mayuri Brown, DO - 07/04/2025 10:45 AM EDTMjose Liao NP - 02/10/2025 9:45 AM EDT Note Date & Type Note Facility 07-04-2025 Note Right Eye Quality was good. Scan locations included subfoveal. Progression has been stable. Findings include normal observations. Left Eye Quality was good. Scan locations included subfoveal. Progression has been stable. Findings include normal observations. Notes Good scan with normal appearance [facility] 07-04-2025 History of Present illness Narrative Images from the original note were not included. Subjective Patient ID: Chelsea Curry is a 80 y.o. female. Chief Complaint Blurred Vision; Diabetic Eye Exam HPI Blurred Vision In both eyes. Vision is blurred, difficult to focus and hazy. Occurring constantly. It is worse in the evening and when tired. Context: near vision, reading and night driving. Associated symptoms: mattering. Treatments tried include eye drops and glasses. Response to treatment was mild improvement. Diabetic Eye Exam Vision is stable, is blurred for near and is blurred for distance. Associated symptoms include blurred vision. Diabetes characteristics include Type 2. Blood sugar level is uncontrolled. Comments Pt here for diabetic eye exam for management of Type 2 diabetes mellitus (DM) without complication, without long-term current use of insulin, Intermediate stage nonexudative age-related macular degeneration of left eye (OS), Bilateral posterior capsular opacification, and Dry eyes. Last A1c was 8.2. Using OTC drops both eyes (OU) PRN. Pt is having a lot of blurry vision when reading and driving at night. Last edited by NANI Ramírez on 07/04/2025 10:50 AM. No current outpatient medications on file. (Ophthalmic Agents) No current facility-administered medications for this visit. (Ophthalmic Agents) Current Outpatient Medications (Other) Medication Sig Dispense Refill mirtazapine (Remeron) 15 MG tablet TAKE 1 TABLET AT BEDTIME 90 tablet 3 Blood Glucose Monitoring Suppl (Salemarked Verio Flex System) w/Device kit 1 Device Daily 1 kit 0 citalopram (CeleXA) 20 MG tablet Take 1 tablet (20 mg) by mouth Daily 90 tablet 2 diphenoxylate-atropine (Lomotil) 2.5-0.025 MG tablet Take 1 tablet by mouth as needed in the morning and 1 tablet as needed at noon and 1 tablet as needed in the evening and 1 tablet as needed before bedtime for diarrhea. glucose blood (Vascular DesignsTouch Verio) test strip Check blood sugar 1x daily 100 each 3 hydroCHLOROthiazide (HYDRODiuril) 25 MG tablet Take 1 tablet (25 mg) by mouth Daily 90 tablet 3 Lancets Micro Thin 33G misc 1 Device Daily 100 each 3 levothyroxine (Levoxyl) 88 MCG tablet Take 1 tablet (88 mcg) by mouth in the morning. Take before meals. 90 tablet 3 Linzess 145 MCG capsule Take 145 mcg by mouth in the morning. Take before meals. Multiple Vitamins-Minerals (multivitamin with iron-minerals) liquid Take by mouth Daily Multiple Vitamins-Minerals (PreserVision AREDS 2) capsule 1 capsule pantoprazole (Protonix) 40 MG EC tablet Take 40 mg by mouth in the morning. Take before meals. Do not crush, chew, or split. Probiotic Product (ALIGN PO) Take by mouth rivaroxaban (Xarelto) 10 MG tablet Take 10 mg by mouth in the morning. Take with meals. rosuvastatin (Crestor) 10 MG tablet Take 1 tablet (10 mg) by mouth Daily 90 tablet 2 semaglutide (Rybelsus) 14 MG tablet Take 1 tablet (14 mg) by mouth in the morning. Take before meals. 90 tablet 3 triamcinolone (Kenalog) 0.1 % cream Apply 1 application topically as needed in the morning and 1 application as needed in the evening. No current facility-administered medications for this visit. (Other) Past Medical History: Diagnosis Date Allergic rhinitis ARMD (age related macular degeneration) BMI 26.0-26.9,adult Colon polyps Diabetes mellitus due to underlying condition with diabetic polyneuropathy (HCC) Diastolic dysfunction Hypothyroidism IBS (irritable bowel syndrome) Insomnia Migraine headache Mixed hyperlipidemia Gomez's neuroma of right foot OM (onychomycosis) PE (physical exam), annual 12/13/2019 Personal history of medical treatment 04/09/2015 EF 55-60% Schatzki's ring of distal esophagus 04/09/2023 Type 2 diabetes mellitus (HCC) Uric acid kidney stone Vitamin D deficiency Allergies Allergen Reactions Clarithromycin GI intolerance Other Reaction(s): stomach ache Codeine Nausea Only Meloxicam GI intolerance Meperidine Anxiety Metformin Hcl GI intolerance Moxifloxacin Other Reaction(s): stomach ache Nalbuphine Rash Penicillin G Rash Phenazopyridine GI intolerance Promethazine Itching and Other Protamine Other reaction(s): Unknown Shellfish Allergy Hives Scallops only Sulfa Antibiotics Rash Tobramycin Hives Tramadol GI intolerance Review of Systems Objective Base Eye Exam Visual Acuity (Snellen - Linear) Right Left Dist cc 20/40 -1 20/40 Correction: Glasses Tonometry (Applanation, 11:13 AM) Right Left Pressure 20 18 Pupils Pupils Right PERRL Left PERRL Visual Oliver Left Right Full Full Extraocular Movement Right Left Full Full Neuro/Psych Oriented x3: Yes Dilation Both eyes: 1.0% Mydriacyl @ 10:45 AM Additional Tests Keratometry K1 Allenwood K2 [place]wood Right 42.25 180 42.25 90 Left 42.25 171 42.75 81 Slit Lamp and Fundus Exam External Exam Right Left External Rosacea, Brow ptosis Rosacea, Brow ptosis Slit Lamp Exam Right Left Lids/Lashes Blepharitis, Dermatochalasis - upper lid, Ptosis Blepharitis, Dermatochalasis - upper lid, Ptosis, nasal Inferior lid with elevated lesion, no lash loss but with intrinsic vessels. Conjunctiva/Sclera White and quiet White and quiet Cornea Decreased tear film Decreased tear film Anterior Chamber Deep and quiet Deep and quiet Iris Round and reactive Round and reactive Lens Posterior chamber intraocular lens, 3+ Posterior capsular opacification Posterior chamber intraocular lens, 3+ Posterior capsular opacification Anterior Vitreous Normal Normal Fundus Exam Right Left Disc Thin rim Normal Macula Normal Retinal pigment epithelial mottling/clumping Vessels Normal Normal Periphery Normal Normal Refraction Wearing Rx Sphere Cylinder Allen[place] Add Right -0.25 -0.25 082 +3.00 Left -0.50 -0.25 115 +3.00 Manifest Refraction Sphere Cylinder [place] Right +0.75 -0.75 123 Left -0.25 -0.25 091 Assessment/Plan Type 2 diabetes mellitus without complication, without long-term current use of insulin ([facility]) - Diabetes Mellitus without sign of diabetic retinopathy on dilated retinal examination today OU: Discussed the pathophysiology of diabetes and its effect on the eye. Stressed the importance of strong glucose control. Advised of importance of at least yearly dilated examinations, but to contact us immediately for any problems or concerns. Intermediate stage nonexudative age-related macular degeneration of left eye - ARMD OU, dry. Importance of smoking cessation, blood pressure control, and healthy diet were emphasized. Patient was advised to consider ultraviolet-B blocking sunglasses. In accordance with the AREDS study, appropriate antioxidant and mineral supplements were prescribed. Patient was instructed to self monitor their monocular vision (reading/Amsler Grid) at least weekly. Patient should immediately report any new onset of decreased vision or metamorphopsia. Bilateral posterior capsular opacification - PCO OU: (Posterior Capsule Opacification) Can be observed without intervention if PCO is not visually significant. Nd:YAG laser capsulotomy may be considered if impairment of vision rises to a level that dose not meet the patient's functional needs or interferes with activities of daily living. Risks, benefits and alternatives to the procedure will be reviewed. If the patient has undergone Nd:YAG laser capsulotomy, they are to notify their operator vacuum promptly if they have a significant change in symptoms, such as flashes of light (photopsia), an increase in floaters, loss of visual field or decrease in visual acuity. Dry eyes - Dry Eyes OU -- Environmental changes to minimize dryness and exposure and the use of artificial tears were recommended. documented in this encounter [facility] 02-10-2025 History of Present illness Narrative Images from the original note were not included. Chelsea Curry is a 79 y.o. female presents with chief complaint of 6 Month Follow-up of Chronic Conditions (Review lab drawn 02/04/2025) and Medicare Annual Wellness Visit Subsequent HPI: History of Present Illness The patient is an 79-year-old female who presents today for a routine office visit and a 6-month Medicare wellness check. She reports no recent falls or feelings of depression but does express a sense of being overwhelmed. She has experienced weight loss, with her current weight at 137 pounds, down from 149 pounds. She has a living will and healthcare power of divorce attorney in place. She continues to struggle with bowel issues, experiencing incontinence approximately once a week. She also mentions a swallowing problem, which was previously addressed with a stretching procedure. She manages this by consuming liquids with her meals. She had kidney stones in the fall and saw a urologist at [facility]. FAMILY HISTORY Her son had a heart attack or stroke at the age of 55. IMMUNIZATIONS She is up to date with her pneumonia shots (Prevnar 13 and 23), shingles vaccines, and received her influenza vaccine last fall. I have reviewed and reconciled the history and medication list with the patient today. CURRENT PCP/CARE TEAM: Patient Care Team: Jared Hedrick MD as PCP - General (Internal Medicine) Jared Hedrick MD as PCP - Devoted Mayuri Brown DO as Referring Physician (Ophthalmology) Lili Prakash LPN as Licensed Practical Nurse (Family Medicine) Hannah Chacon MD (Urology) Rashida Eldridge MD as Referring Physician (Urology) Over the past 2 weeks, how often have you been bothered by any of the following problems? Little interest or pleasure in doing things: Not at all Feeling down, depressed, or hopeless: Not at all Patient Health Questionnaire-2 Score: 0 Johnson Fall Risk History of Falling, Immediate or Within 3 Months: No Health Risk Assessment Form Do you need help eating, bathing, using the toilet, dressing, or getting around your home?: No Can you prepare your own meals?: Yes Can you do your own housework without help?: Yes Can you shop for groceries or clothes without help?: Yes Do you exercise for about 20 minutes 3 or more days a week?: Yes How confident are you that you can control and manage most of your health problems?: Very confident Can you mange your money, credit cards and accounts, pay bills and taxes?: Yes Vision Screening: Yes, patient sees regular operator vacuum/account services analyst Cognitive Screening Self Assessment: No overt cognitive deficiency is apparent by direct observation Three Word Registration: Banana, [place], Chair Clock Drawing: Normal Clock - 2 Three Word Recall: All 3 words correct - 3 Total Score (0-5 Points): 5 Pain Assessment Pain Score: 0 - No pain HISTORIES: PAST MEDICAL HISTORY: Past Medical History: Diagnosis Date Allergic rhinitis ARMD (age related macular degeneration) BMI 26.0-26.9,adult Colon polyps Diabetes mellitus due to underlying condition with diabetic polyneuropathy (CMS/HCC) Diastolic dysfunction Hypothyroidism (CMS/HCC) IBS (irritable bowel syndrome) Insomnia Migraine headache (CMS/HCC) Mixed hyperlipidemia (CMS/HCC) Gomez's neuroma of right foot OM (onychomycosis) PE (physical exam), annual 12/13/2019 Personal history of medical treatment 04/09/2015 EF 55-60% Schatzki's ring of distal esophagus 04/09/2023 Type 2 diabetes mellitus Uric acid kidney stone Vitamin D deficiency SURGICAL HISTORY: Past Surgical History: Procedure Laterality Date APPENDECTOMY 1985 BACK SURGERY 2002 CARPAL TUNNEL RELEASE 2006 CATARACT EXTRACTION, BILATERAL 2021 CHOLECYSTECTOMY 1980 COLONOSCOPY 01/03/2017 COLONOSCOPY 01/30/2024 CT ANGIOGRAM ABDOMEN 07/06/2023 CT ANGIOGRAM ABDOMEN 07/06/[address] CYSTOSTOMY 04/24/2016 executive urology DILATION AND CURETTAGE 80s EGD 2013 colonoscopy EGD 01/30/2024 with biopsy HYSTERECTOMY 1985 MARIANA/BSO LITHOTRIPSY 2012 LUMBAR FUSION 2002 MENISCECTOMY 2003 Abrasion chondroplasty (Rt Medial Meniscus tear, Chondromalacia) MENISCECTOMY Left 11/23/2016 knee lateral NOSE SURGERY OTHER SURGICAL HISTORY Lt Parotidectomy with FND 05-14- path Papillary cystadenoma (Lt Parotid Mass) OTHER SURGICAL HISTORY Arthrocentesis of the right hip trochanteric bursa OTHER SURGICAL HISTORY 2012 Dr. Jay [facility] arhtroplasty & CTR LT OTHER SURGICAL HISTORY Left 04/20/2015 RCR OTHER SURGICAL HISTORY L4 & L5 fusion RENAL ARTERY STENT Right 2012 ROTATOR CUFF REPAIR Right 2008 ROTATOR CUFF REPAIR Left 2014 SALIVARY GLAND SURGERY 2009 partoidectomy TONSILLECTOMY SOCIAL HISTORY: Social History Tobacco Use Smoking status: Never Smokeless tobacco: Never Vaping Use Vaping status: Never Used Substance Use Topics Alcohol use: Never Comment: Caffeine intake: coffee, tea, pop Drug use: Never Depression: Not at risk (02/10/2025) PHQ-2 PHQ-2 Score: 0 FAMILY HISTORY: Family History Problem Relation Name Age of Onset Heart failure Mother Cancer Mother COPD Mother Cancer Father Stroke Maternal Grandmother Diabetes Maternal Grandmother Hypertension Maternal Grandmother Breast cancer Neg Hx Colon cancer Neg Hx Ovarian cancer Neg Hx MEDICATIONS: Current Outpatient Medications Medication Instructions Blood Glucose Monitoring Suppl (Salemarked Verio Flex System) w/Device kit 1 Device, Does not apply, Daily citalopram (CELEXA) 10 mg, Oral, Daily diphenoxylate-atropine (Lomotil) 2.5-0.025 MG tablet 1 tablet, 4 times daily PRN glucose blood (OneTouch Verio) test strip Check blood sugar 1x daily hydroCHLOROthiazide (HYDRODIURIL) 25 mg, Oral, Daily Lancets Micro Thin 33G misc 1 Device, Does not apply, Daily levothyroxine (LEVOXYL) 88 mcg, Oral, Daily before breakfast Linzess 145 mcg, Daily before breakfast mirtazapine (REMERON) 15 mg, Oral, Nightly Multiple Vitamins-Minerals (multivitamin with iron-minerals) liquid Daily Multiple Vitamins-Minerals (PreserVision AREDS 2) capsule 1 capsule pantoprazole (PROTONIX) 40 mg, Daily before breakfast Probiotic Product (ALIGN PO) Take by mouth rivaroxaban (XARELTO) 10 mg, Daily with breakfast semaglutide (RYBELSUS) 14 mg, Oral, Daily before breakfast simvastatin (Zocor) 20 MG tablet TAKE 1 TABLET IN THE EVENING MONDAY, MONDAY, AND MONDAY triamcinolone (Kenalog) 0.1 % cream 1 application , 2 times daily PRN ALLERGIES: Allergies Allergen Reactions Clarithromycin GI intolerance Other Reaction(s): stomach ache Codeine Nausea Only Meloxicam GI intolerance Meperidine Anxiety Metformin Hcl GI intolerance Moxifloxacin Other Reaction(s): stomach ache Nalbuphine Rash Penicillin G Rash Phenazopyridine GI intolerance Promethazine Itching and Other Protamine Other reaction(s): Unknown Shellfish Allergy Hives Scallops only Sulfa Antibiotics Rash Tobramycin Hives Tramadol GI intolerance Immunization History Administered Date(s) Administered Influenza, High Dose Seasonal, Preservative Free 07/07/2014, 07/19/2017, 08/17/2021, 08/11/2022 Influenza, Seasonal, Quadrivalent, Adjuvanted 07/11/2023 Influenza, injectable, quadrivalent, preservative free 07/14/2016, 07/19/2017 Influenza, trivalent, adjuvanted 07/12/2018, 07/11/2019, 08/05/2024 Moderna SARS-CoV-2 50mcg/0.5mL Booster 08/27/2022 Pfizer Purple Cap SARS-CoV-2 Vaccination 11/27/2020, 12/18/2020, 08/04/2021 Pneumococcal Conjugate PCV 13 01/16/2015 Pneumococcal Polysaccharide PPSV23 10/30/2007 SARS-COV-2 (COVID-19) vaccine, mRNA, spike protein, LNP, bivalent, preservative free, 30 mcg/0.3 mL dose, john-sucrose formulation 08/27/2022 Zoster, Recombinant 05/27/2021, 11/01/2021 Zoster, live 10/30/2011 PHYSICAL EXAM: Visit Vitals BP 116/60 (BP Location: Left arm, Patient Position: Sitting) Pulse 75 Ht 5' 4 Wt 137 lb SpO2 98% BMI 23.52 kg/m Smoking Status Never BSA 1.67 m BP Readings from Last 3 Encounters: 02/10/25 116/60 08/05/24 112/60 04/29/24 112/60 Wt Readings from Last 3 Encounters: 02/10/25 137 lb 08/05/24 143 lb 04/29/24 149 lb Physical Exam Constitutional: General: She is awake. She is not in acute distress. Appearance: She is well-developed. HENT: Head: Normocephalic. Right Ear: Tympanic membrane normal. Left Ear: Tympanic membrane normal. Nose: Nose normal. Mouth/Throat: Mouth: Mucous membranes are moist. Pharynx: Oropharynx is clear. Eyes: Extraocular Movements: Extraocular movements intact. Neck: Thyroid: No thyromegaly. Vascular: No carotid bruit. Cardiovascular: Rate and Rhythm: Normal rate and regular rhythm. Pulses: Posterior tibial pulses are 1+ on the right side and 1+ on the left side. Heart sounds: Normal heart sounds. No murmur heard. No gallop. Pulmonary: Effort: Pulmonary effort is normal. No respiratory distress. Breath sounds: Normal breath sounds. No wheezing, rhonchi or rales. Chest: Chest wall: No tenderness. Abdominal: General: Bowel sounds are normal. There is no distension. Palpations: Abdomen is soft. There is no hepatomegaly, splenomegaly or mass. Tenderness: There is no abdominal tenderness. Musculoskeletal: General: No deformity. Normal range of motion. Cervical back: Normal range of motion and neck supple. No rigidity or tenderness. Right lower leg: No edema. Left lower leg: No edema. Lymphadenopathy: Cervical: No cervical adenopathy. Skin: General: Skin is warm and dry. Neurological: Mental Status: She is alert and oriented to person, place, and time. Motor: No weakness. Gait: Gait is intact. Psychiatric: Mood and Affect: Mood normal. Mood is not anxious or depressed. Behavior: Behavior is cooperative. Thought Content: Thought content normal. Cognition and Memory: Cognition normal. Judgment: Judgment normal. Results ASSESSMENT AND PLAN: Assessment & Plan 1. Type 2 diabetes mellitus with diabetic neuropathy, without long-term current use of insulin ([facility]) (Primary) - Hemoglobin a1c with eag; Future - Vitamin B12; Future -well controlled. A1C improved. 2. Essential hypertension ([facility]) - Comprehensive metabolic panel; Future -well controlled 3. Mixed hyperlipidemia ([facility]) - rosuvastatin (Crestor) 10 MG tablet; Take 1 tablet (10 mg) by mouth Daily Dispense: 90 tablet; Refill: 2 -stop zocor 4. Generalized anxiety disorder ([facility]) - citalopram (CeleXA) 20 MG tablet; Take 1 tablet (20 mg) by mouth Daily Dispense: 90 tablet; Refill: 2 5. Acquired hypothyroidism ([facility]) -TSH WNL 6. Gastroesophageal reflux disease without esophagitis -stable. Had EGD recently and had esophagus dilated 7. Primary insomnia -advised that she could double her remeron to 30 mg 8. Vitamin D deficiency -due for recheck next month 9. Vitamin B12 deficiency (non anemic) -due for recheck next visit 10. History of pulmonary embolism -on xarelto 11. Medicare annual wellness visit, subsequent -A wellness visit was completed with the patient today by Jose Liao NP. Demographics updated. The past medical history, family history, and social history reviewed and updated. The medication list (including supplements) has been reconciled. -A list of other providers involved with the patient's care and any durable medical goods providers documented. -Depression screening was completed and addressed as indicated. Cognitive function was assessed by direct observation and assessment of ability to perform ADLs and iADLs was done. As well as Mini-Cog assessment. -We reviewed, and discussed as indicated, safety issues, including falls risk assessment. -Time was spent reviewing and discussing age-appropriate screenings, immunizations and indicated laboratory monitoring. -We discussed Advanced Directives and code status and this information was updated in the chart. -BMI was assessed. Educational handout with tips for healthy diet, exercise and lifestyle modifications that will promote achieving or maintaining a healthy weight provided. The BMI will be monitored at routine office appointments as well . -Major risk factors for heart disease were identified and modifiable risk factors discussed. -A Care Plan ( Report card ) was provided to patient at the end of the appointment. Included in this is recommendations for when any testing or immunizations need to be repeated. -She is up to date with her pneumonia shots (Prevnar 13 and 23), shingles vaccines, and received her influenza vaccine last fall. Her DEXA scan was normal in 2022, so she does not need another one for 5 years. She had a colonoscopy in spring 2023, which did not find any polyps. A mammogram will be scheduled. -Her weight has decreased from 143 to 137 pounds, resulting in a body mass index of 23.52. She is advised to maintain her current weight and not lose any more. 12. ACP (advance care planning) -has a living will and POA -Full code 13. Medication management - Vitamin B12; Future 14. Diarrhea, unspecified type - She reports experiencing bowel incontinence approximately once a week. -Pancreatic elastase, fecal; Future 15. Breast screening - Bilateral screening mammogram with tomosynthesis; Future 16. Kidney stones. She had kidney stones in the fall and saw a urologist at [facility]. PROCEDURE Colonoscopy in spring 2023 did not find any polyps. -Dr. Hedrick was present in office suite today and is supervising patient care and available for consult. I'm following his plan of care for the above problems. Previous notes and plan were reviewed and followed. documented in this encounter [facility] 02-06-2025 Note Patient Education Urology Kidney Stones Kidney stones are rock-like masses that form inside of the kidneys. Kidneys are organs that make pee (urine). A kidney stone may move into other parts of the urinary tract, including: ??? The tubes that connect the kidneys to the bladder (ureters). ??? The bladder. ??? The tube that carries urine out of the body (urethra). Kidney stones can cause very bad pain and can block the flow of pee. The stone usually leaves your body through your pee. A doctor may need to take out the stone. What are the causes? Kidney stones may be caused by: ??? Too much calcium in the body. This may be caused by too much parathyroid hormone in the blood. ??? Uric acid crystals in the bladder. The body makes uric acid when you eat certain foods. ??? Narrowing of one or both of the ureters. ??? A kidney blockage that you were born with. ??? Past surgery on the kidney or the ureters. What increases the risk? You are more likely to develop this condition if: ??? You have had a kidney stone in the past. ??? Other people in your family have had kidney stones. ??? You do not drink enough water. ??? You eat a diet that is high in protein, salt (sodium), or sugar. ??? You are very overweight (obese). What are the signs or symptoms? Symptoms of a kidney stone may include: ??? Pain in the side of the belly, right below the ribs. Pain usually spreads to the groin. ??? Needing to pee often or right away. ??? Pain when peeing. ??? Blood in your pee. ??? Feeling like you may vomit (nauseous). ??? Vomiting. ??? Fever and chills. How is this treated? Treatment depends on the size, location, and makeup of the kidney stones. The stones will often pass out of the body when you pee. You may need to: ??? Drink more fluid to help pass the stone. ? In some cases, you may be given fluids through an IV tube at the hospital. ??? Take medicine for pain. ??? Change your diet to help keep kidney stones from coming back. Sometimes, you may need: ??? A procedure to break up kidney stones using a beam of light (laser) or shock waves. ??? Surgery to remove the kidney stones. Follow these instructions at home: Medicines ??? Take qvnt-whm-geryyri and prescription medicines only as told by your doctor. ??? Ask your doctor if the medicine prescribed to you requires you to avoid driving or using machinery. Eating and drinking ??? Drink enough fluid to keep your pee pale yellow. ? You may be told to drink at least 8?10 glasses of water each day. This will help you pass the stone. ??? If told by your doctor, change your diet. You may be told to: ? Limit how much salt you eat. ? Eat more fruits and vegetables. ? Limit how much meat, poultry, fish, and eggs you eat. ??? Follow instructions from your doctor about what you may eat and drink. General instructions ??? Collect pee samples as told by your doctor. You may need to collect a pee sample: ? 24 hours after a stone comes out. ? 8?12 weeks after a stone comes out, and every 6?12 months after that. ??? Strain your pee every time you pee. Use the strainer that your doctor recommends. ??? Do not throw out the stone. Keep it so that it can be tested by your doctor. ??? Keep all follow-up visits. You may need X-rays and ultrasounds to make sure the stone has come out. How is this prevented? To prevent another kidney stone: ??? Drink enough fluid to keep your pee pale yellow. This is the best way to prevent kidney stones. ??? Eat healthy foods. ??? Avoid certain foods as told by your doctor. You may be told to eat less protein. ??? Stay at a healthy weight. Where to find more information ??? National Kidney Foundation (NKF): kidney.org ??? [employer] (UCF): urologyhealth.org Contact a doctor if: ??? You have pain that gets worse or does not get better with medicine. Get help right away if: ??? You have a fever or chills. ??? You get very bad pain. ??? You get new pain in your belly. ??? You faint. ??? You cannot pee. This information is not intended to replace advice given to you by your health care provider. Make sure you discuss any questions you have with your health care provider. Document Revised: 06/09/2023 Document Reviewed: 06/09/2023 Elsevier Patient Education ? 2023 [place]. [facility] 09-30-2024 Hospital Discharge instructions Patient Education 09/30/2024 10:10:51 Urinary Incontinence Urinary Incontinence Urinary incontinence refers to a condition in which a person is unable to control where and when to pass urine. A person with this condition will urinate involuntarily. This means that the person urinates when he or she does not mean to. What are the causes? This condition may be caused by: Medicines. Infections. Constipation. Overactive bladder muscles. Weak bladder muscles. Weak pelvic floor muscles. These muscles provide support for the bladder, intestine, and, in women, the uterus. Enlarged prostate in men. The prostate is a gland near the bladder. When it gets too big, it can pinch the urethra. With the urethra blocked, the bladder can weaken and lose the ability to empty properly. Surgery. Emotional factors, such as anxiety, stress, or post-traumatic stress disorder (PTSD). Spinal cord injury, nerve injury, or other neurological conditions. Pelvic organ prolapse. This happens in women when organs move out of place and into the vagina. This movement can prevent the bladder and urethra from working properly. What increases the risk? The following factors may make you more likely to develop this condition: Age. The older you are, the higher the risk. Obesity. Being physically inactive. and childbirth. Menopause. Diseases that affect the nerves or spinal cord. Long-term, or chronic, coughing. This can increase pressure on the bladder and pelvic floor muscles. What are the signs or symptoms? Symptoms may vary depending on the type of urinary incontinence you have. They include: A sudden urge to urinate, and passing urine involuntarily before you can get to a bathroom (urge incontinence). Suddenly passing urine when doing activities that force urine to pass, such as coughing, laughing, exercising, or sneezing (stress incontinence). Needing to urinate often but urinating only a small amount, or constantly dribbling urine (overflow incontinence). Urinating because you cannot get to the bathroom in time due to a physical disability, such as arthritis or injury, or due to a communication or thinking problem, such as Alzheimer's disease (functional incontinence). How is this diagnosed? This condition may be diagnosed based on: Your medical history. A physical exam. Tests, such as: ?Urine tests. ?X-rays of your kidney and bladder. ?Ultrasound. ?CT scan. ?Cystoscopy. In this procedure, a health care provider inserts a tube with a light and camera (cystoscope) through the urethra and into the bladder to check for problems. ?Urodynamic testing. These tests assess how well the bladder, urethra, and sphincter can store and release urine. There are different types of urodynamic tests, and they vary depending on what the test is measuring. To help diagnose your condition, your health care provider may recommend that you keep a log of when you urinate and how much you urinate. How is this treated? Treatment for this condition depends on the type of incontinence that you have and its cause. Treatment may include: Lifestyle changes, such as: ?Quitting smoking. ?Maintaining a healthy weight. ?Staying active. Try to get 150 minutes of moderate-intensity exercise every week. Ask your health care provider which activities are safe for you. ?Eating a healthy diet. ?Avoid high-fat foods, like fried foods. ?Avoid refined carbohydrates like white bread and white rice. ?Limit how much alcohol and caffeine you drink. ?Increase your fiber intake. Healthy sources of fiber include beans, whole grains, and fresh fruits and vegetables. Behavioral changes, such as: ?Pelvic floor muscle exercises. ?Bladder training, such as lengthening the amount of time between bathroom breaks, or using the bathroom at regular intervals. ?Using techniques to suppress bladder urges. This can include distraction techniques or controlled breathing exercises. Medicines, such as: ?Medicines to relax the bladder muscles and prevent bladder spasms. ?Medicines to help slow or prevent the growth of a man's prostate. ?Botox injections. These can help relax the bladder muscles. Treatments, such as: ?Using pulses of electricity to help change bladder reflexes (electrical nerve stimulation). ?For women, using a biomedical manager to prevent urine leaks. This is a small, tampon-like, disposable device that is inserted into the urethra. ?Injecting collagen or carbon beads (bulking agents) into the urinary sphincter. These can help thicken tissue and close the bladder opening. ?Surgery. Follow these instructions at home: Lifestyle Limit alcohol and caffeine. These can fill your bladder quickly and irritate it. Keep yourself clean to help prevent odors and skin damage. Ask your health care provider about special skin creams and cleansers that can protect the skin from urine. Consider wearing pads or adult diapers. Make sure to change them regularly, and always change them right after experiencing incontinence. General instructions Take cigw-cbe-nckpthf and prescription medicines only as told by your health care provider. Use the bathroom about every 3 4 hours, even if you do not feel the need to urinate. Try to empty your bladder completely every time. After urinating, wait a minute. Then try to urinate again. Make sure you are in a relaxed position while urinating. If your incontinence is caused by nerve problems, keep a log of the medicines you take and the times you go to the bathroom. Keep all follow-up visits. This is important. Where to find more information National [place] of Diabetes and Digestive and Kidney Diseases: www.niddk.nih.gov [employer]: www.urologyhealth.org Contact a health care provider if: You have pain that gets worse. Your incontinence gets worse. Get help right away if: You have a fever or chills. You are unable to urinate. You have redness in your groin area or down your legs. Summary Urinary incontinence refers to a condition in which a person is unable to control where and when to pass urine. This condition may be caused by medicines, infection, weak bladder muscles, weak pelvic floor muscles, enlargement of the prostate (in men), or surgery. Factors such as older age, obesity, and childbirth, menopause, neurological diseases, and chronic coughing may increase your risk for developing this condition. Types of urinary incontinence include urge incontinence, stress incontinence, overflow incontinence, and functional incontinence. This condition is usually treated first with lifestyle and behavioral changes, such as quitting smoking, eating a healthier diet, and doing regular pelvic floor exercises. Other treatment options include medicines, bulking agents, medical devices, electrical nerve stimulation, or surgery. This information is not intended to replace advice given to you by your health care provider. Make sure you discuss any questions you have with your health care provider. Document Revised: 05/21/2021 Document Reviewed: 05/21/2021 [employer] Patient Education 2023 [place]. Follow Up Care 08/20/2024 12:50:13 With:HANNAH CHACON MD, URL Address: When: Unknown [facility] 09-30-2024 Note Patient Education Urology Urinary Incontinence Urinary incontinence refers to a condition in which a person is unable to control where and when to pass urine. A person with this condition will urinate involuntarily. This means that the person urinates when he or she does not mean to. What are the causes? This condition may be caused by: ??? Medicines. ??? Infections. ??? Constipation. ??? Overactive bladder muscles. ??? Weak bladder muscles. ??? Weak pelvic floor muscles. These muscles provide support for the bladder, intestine, and, in women, the uterus. ??? Enlarged prostate in men. The prostate is a gland near the bladder. When it gets too big, it can pinch the urethra. With the urethra blocked, the bladder can weaken and lose the ability to empty properly. ??? Surgery. ??? Emotional factors, such as anxiety, stress, or post-traumatic stress disorder (PTSD). ??? Spinal cord injury, nerve injury, or other neurological conditions. ??? Pelvic organ prolapse. This happens in women when organs move out of place and into the vagina. This movement can prevent the bladder and urethra from working properly. What increases the risk? The following factors may make you more likely to develop this condition: ??? Age. The older you are, the higher the risk. ??? Obesity. ??? Being physically inactive. ??? and childbirth. ??? Menopause. ??? Diseases that affect the nerves or spinal cord. ??? Long-term, or chronic, coughing. This can increase pressure on the bladder and pelvic floor muscles. What are the signs or symptoms? Symptoms may vary depending on the type of urinary incontinence you have. They include: ??? A sudden urge to urinate, and passing urine involuntarily before you can get to a bathroom (urge incontinence). ??? Suddenly passing urine when doing activities that force urine to pass, such as coughing, laughing, exercising, or sneezing (stress incontinence). ??? Needing to urinate often but urinating only a small amount, or constantly dribbling urine (overflow incontinence). ??? Urinating because you cannot get to the bathroom in time due to a physical disability, such as arthritis or injury, or due to a communication or thinking problem, such as Alzheimer's disease (functional incontinence). How is this diagnosed? This condition may be diagnosed based on: ??? Your medical history. ??? A physical exam. ??? Tests, such as: ? Urine tests. ? X-rays of your kidney and bladder. ? Ultrasound. ? CT scan. ? Cystoscopy. In this procedure, a health care provider inserts a tube with a light and camera (cystoscope) through the urethra and into the bladder to check for problems. ? Urodynamic testing. These tests assess how well the bladder, urethra, and sphincter can store and release urine. There are different types of urodynamic tests, and they vary depending on what the test is measuring. To help diagnose your condition, your health care provider may recommend that you keep a log of when you urinate and how much you urinate. How is this treated? Treatment for this condition depends on the type of incontinence that you have and its cause. Treatment may include: ??? Lifestyle changes, such as: ? Quitting smoking. ? Maintaining a healthy weight. ? Staying active. Try to get 150 minutes of moderate-intensity exercise every week. Ask your health care provider which activities are safe for you. ? Eating a healthy diet. ? Avoid high-fat foods, like fried foods. ? Avoid refined carbohydrates like white bread and white rice. ? Limit how much alcohol and caffeine you drink. ? Increase your fiber intake. Healthy sources of fiber include beans, whole grains, and fresh fruits and vegetables. ??? Behavioral changes, such as: ? Pelvic floor muscle exercises. ? Bladder training, such as lengthening the amount of time between bathroom breaks, or using the bathroom at regular intervals. ? Using techniques to suppress bladder urges. This can include distraction techniques or controlled breathing exercises. ??? Medicines, such as: ? Medicines to relax the bladder muscles and prevent bladder spasms. ? Medicines to help slow or prevent the growth of a man's prostate. ? Botox injections. These can help relax the bladder muscles. ??? Treatments, such as: ? Using pulses of electricity to help change bladder reflexes (electrical nerve stimulation). ? For women, using a biomedical manager to prevent urine leaks. This is a small, tampon-like, disposable device that is inserted into the urethra. ? Injecting collagen or carbon beads (bulking agents) into the urinary sphincter. These can help thicken tissue and close the bladder opening. ? Surgery. Follow these instructions at home: Lifestyle ??? Limit alcohol and caffeine. These can fill your bladder quickly and irritate it. ??? Keep yourself clean to help prevent odors and skin damage. Ask your health care provider (more content not included)... [facility] 08-16-2024 Note Microbiology PROCEDURE: Blood Culture Charcoal [R1] SOURCE: Blood BODY SITE: Hand L COLLECTED DATE/TIME: 08/09/2024 13:28 EDT RECEIVED DATE/TIME: 08/09/2024 14:35 EDT START DATE/TIME: 08/09/2024 14:35 EDT FREE TEXT SOURCE: ROE AGACNP-BC, Tabatha ROE AGACNP-BC, Tabatha FINAL REPORTS Final Report [] Verified Date/Time: 08/16/2024 15:00 EDT No growth at 7 days. Performing Locations R1: This [facility] was performed at: [facility], [address] [place] [address], [address] [place] [address], [facility] Comment on above: Performed By: #### [id number] #### [facility] [address] [place] [id number] 08-16-2024 Note Microbiology PROCEDURE: Blood Culture Charcoal [R1] SOURCE: Blood BODY SITE: Arm L COLLECTED DATE/TIME: 08/09/2024 13:16 EDT RECEIVED DATE/TIME: 08/09/2024 14:35 EDT START DATE/TIME: 08/09/2024 14:35 EDT FREE TEXT SOURCE: lt ac ROE AGACNP-BC, Tabatha ROE AGACNP-BC, Tabatha FINAL REPORTS Final Report [] Verified Date/Time: 08/16/2024 15:00 EDT No growth at 7 days. Performing Locations R1: This test was performed at: [facility], [address] [place] [address], [id number] [place] [address], [facility] Comment on above: Performed By: #### [id number] #### [facility] [address] [place] [id number] 08-15-2024 Hospital Discharge instructions Patient Education 08/15/2024 11:42:30 Kidney Stones STENT REMOVAL INSTRUCTIONS Due to your recent procedure, your urologist may have placed a ureteric stent in your ureter (tube from kidney to bladder). A ureteric stent or JJ stent is a specifically designed hollow tube made of flexible plastic about 25-30 cm long. It is placed in the ureter and is held in place by a coil at each end. A stent s function is to hold the ureter open so urine can drain from the kidney to the bladder and is usually inserted after you have had a ureteroscopy (a look inside the ureter). It is quite common for the stent to irritate the bladder, and you may go to the toilet often and pass very little urine. This is just temporary and will resolve once the stent is removed. If this is distressing, take the oxybutynin provided to you. It is also common to experience discomfort in the kidney region when passing urine, whilst you have a stent in place. This is nothing to worry about. You may have noticed a string coming out of your urethra (water pipe). This string will be used to remove your stent in several days. Your urologist will give you an indication how long the stent should stay in place.? ?Removing your stent [facility] How to remove your stent Wash and clean your hands thoroughly It is important to try and relax. This will make removal easier. Take hold of the string and with a firm, steady motion, pull the stent until it is out.?Remember that it is approximately 25-30 cm long. This will feel uncomfortable, but it should not be painful. Once the stent is removed you will probably experience some pain the next time you pass urine, and you may also notice blood in your urine. This is quite normal, and it will pass. Make sure you drink enough fluid to keep your urine a pale-yellow color. This will reduce the likelihood of blood clots in your urine. If you feel that you are unable to remove the stent by yourself, don t be concerned. Contact the office and arrange a time to have the stent removed by a nurse.?? Follow Up Care 08/08/2024 11:47:34 With:HANNAH CHACON Address: [address] [place] [phone] Business (1) When: Unknown Comments:Call for followup appointment [facility] 08-15-2024 Note Patient Education - Text Urology STENT REMOVAL INSTRUCTIONS Due to your recent procedure, your urologist may have placed a ureteric stent in your ureter (tube from kidney to bladder). A ureteric stent or JJ stent is a specifically designed hollow tube made of flexible plastic about 25-30 cm long. It is placed in the ureter and is held in place by a coil at each end. A stent?s function is to hold the ureter open so urine can drain from the kidney to the bladder and is usually inserted after you have had a ureteroscopy (a look inside the ureter). It is quite common for the stent to irritate the bladder, and you may go to the toilet often and pass very little urine. This is just temporary and will resolve once the stent is removed. If this is distressing, take the oxybutynin provided to you. It is also common to experience discomfort in the kidney region when passing urine, whilst you have a stent in place. This is nothing to worry about. You may have noticed a string coming out of your urethra (water pipe). This string will be used to remove your stent in several days. Your urologist will give you an indication how long the stent should stay in place.? ?Removing your stent ? [facility] How to remove your stent Wash and clean your hands thoroughly It is important to try and relax. This will make removal easier. Take hold of the string and with a firm, steady motion, pull the stent until it is out.?Remember that it is approximately 25-30 cm long. This will feel uncomfortable, but it should not be painful. Once the stent is removed you will probably experience some pain the next time you pass urine, and you may also notice blood in your urine. This is quite normal, and it will pass. Make sure you drink enough fluid to keep your urine a pale-yellow color. This will reduce the likelihood of blood clots in your urine. If you feel that you are unable to remove the stent by yourself, don?t be concerned. Contact the office and arrange a time to have the stent removed by a nurse.?? [facility] 08-11-2024 Note History and Physical Basic Information Admit Date/Time:08/09/2024 13:45 Chief Complaint patient presents with RLQ abdominal pain that started yesterday with nausea and vomiting. dx with kidney stone on L side- saw urology yesterday. hematuria and dysuria since dx History of Present Illness 79-year-old female with PMH of: Smoker, HTN, HLD, hypothyroidism, GERD, Mejia's esophagus, chronic diarrhea, multiple renal calculi, hx. of PE (xarelto) -Pt. presents to ED 2/2 b/l flank pain w/ known renal stones -Pt. states she was seen by Dr. Eldridge on 08/08/24 and set up for lithotripsy next however since that time she has developed right-sided flank and RLQ abd. pain late last night and ongoing this a.m. Patient states it is associated with nausea, nonbloody emesis, unable to keep food down, endorses chills but denies fever, cough, urine production, known COVID exposure, chest pain, pressure, palpitations, diarrhea. Patient was evaluated in the ED, report they spoke with Dr. Smith who recommends admission for R side stone evaluation/procedure with IV hydration, n.p.o. after midnight. Review of Systems Constitutional: + chills Gastrointestinal: Denies abd pain. Passing flatus. Last BM: 08/08 Musculoskeletal: + R flank, RLQ tenderness, Integumentary: Negative. Neurologic: Alert and oriented X4. Psychiatric: Negative. Additional ROS info: Except as noted in the above Review of Systems and in the History of Present Illness all other systems have been reviewed and are negative or noncontributory Scoring Johnson Fall Risk Score: 35 (08/09/24) Physical Exam Vitals & Measurements T: 36.7 ?C(Oral) HR: 77(Monitored) RR: 18 BP: 128/71 SpO2: 97% HT: 165 cm WT: 63.4 kg General: Calm, able to communicate needs, NAD Head: Normocephalic/atraumatic Eyes: Pupils equal, round. Conjunctivae and sclerae normal, HEENT: Mucous membrane moist. Tongue normal Neck: Trachea midline, neck supple, Chest: No chest wall deformity, no chest wall tenderness Lungs: CTA oliver Cardio: Normal rate, currently in RSR, no edema. Pulses: Normal capillary refill Abdomen: Soft, non-distended, non-tender, normal BS Musculoskeletal: No deformity or scoliosis noted. Normal ROM for age. + R/L CVA tenderness Integumentary: Warm, dry, Extremity: No clubbing, Neurologic: Alert, oriented x 4, follows commands, Mental status: Pleasant & cooperative, approp. affect, Lab Results WBC: 9.5 E9/L (08/09/24 08:43:00) RBC: 4.5 E12/L (08/09/24 08:43:00) HGB: 14.7 gm/dL (08/09/24 08:43:00) Hct: 42.1 % (08/09/24 08:43:00) MCV: 93.9 fL (08/09/24 08:43:00) MCH: 32.7 pg (08/09/24 08:43:00) MCHC: 34.9 gm/dL (08/09/24 08:43:00) RDW: 13.6 % (08/09/24 08:43:00) Platelet: 261 E9/L (08/09/24 08:43:00) MPV: 8.1 fL (08/09/24 08:43:00) Neutro Auto: 88.8 % High (08/09/24 08:43:00) Lymph Auto: 6.6 % Low (08/09/24 08:43:00) [place] Auto: 3.8 % Low (08/09/24 08:43:00) Eos Auto: 0.1 % (08/09/24 08:43:00) Basophil Auto: 0.7 % (08/09/24 08:43:00) Neutro Absolute: 8.5 E9/L High (08/09/24 08:43:00) Lymph Absolute: 0.6 E9/L Low (08/09/24 08:43:00) [place] Absolute: 0.4 E9/L (08/09/24 08:43:00) Eos Absolute: 0 E9/L (08/09/24 08:43:00) Basophil Absolute: 0.1 E9/L (08/09/24 08:43:00) Glucose Lvl: 243 mg/dL High (08/09/24 08:43:00) BUN: 20 mg/dL (08/09/24 08:43:00) Creatinine: 0.9 mg/dL (08/09/24 08:43:00) eGFR: 64 mL/min/1.73 m2 (08/09/24 08:43:00) BUN/Creat Ratio: 22 High (08/09/24 08:43:00) Sodium Lvl: 138 mmol/L (08/09/24 08:43:00) Potassium Lvl: 3.6 mmol/L (08/09/24 08:43:00) Chloride: 102 mmol/L (08/09/24 08:43:00) CO2: 24 mmol/L (08/09/24 08:43:00) AGAP: 16 mEq/L (08/09/24 08:43:00) Calcium Lvl: 9.7 mg/dL (08/09/24 08:43:00) Alk Phos: 57 Int._Unit/L (08/09/24 08:43:00) ALT: 23 Int._Unit/L (08/09/24 08:43:00) AST: 17 Int._Unit/L (08/09/24 08:43:00) Total Protein: 6.9 gm/dL (08/09/24 08:43:00) Albumin Lvl: 4.4 gm/dL (08/09/24 08:43:00) Globulin: 2.5 gm/dL (08/09/24 08:43:00) A/G Ratio: 1.8 (08/09/24 08:43:00) Bili Total: 0.9 mg/dL (08/09/24 08:43:00) Bili Direct: 0.1 mg/dL (08/09/24 08:43:00) Bili Indirect: 0.8 mg/dL (08/09/24 08:43:00) Lipase Lvl: 24 unit/L (08/09/24 08:43:00) Lactic Acid Lvl: 2.5 mmol/L High (08/09/24 13:16:00) UA Spec Desc: Clean Catch (08/09/24 09:41:00) UA Color: Dark-Brown Abnormal (08/09/24 09:41:00) UA Clarity: Ex.Turbid Abnormal (08/09/24 09:41:00) UA Spec Grav: 1.027 (08/09/24 09:41:00) UA pH: 6.0 (08/09/24 09:41:00) UA Protein: 2+ Abnormal (08/09/24 09:41:00) UA Glucose: 4+ Abnormal (08/09/24 09:41:00) UA Ketones: 2+ Abnormal (08/09/24 09:41:00) UA Bili: Negat (08/09/24 09:41:00) UA Blood: 3+ Abnormal (08/09/24 09:41:00) UA Nitrite: Negat (08/09/24 09:41:00) UA Urobilinogen: Negat (08/09/24 09:41:00) UA Leuk Est: 250 Naomi/uL Abnormal (08/09/24 09:41:00) UA RBC: >75 Abnormal (08/09/24 09:41:00) UA Squam Epithelial: 5-8 (08/09/24 09:41:00) UA WBC: 16-25 Abnormal (08/09/24 (more content not included)... [facility] Comment on above: Result Comment: Elec tronically Signed By: Tabatha MCCOY\.br\Date and Time Signed: 08/09/24 14:10 EDT\.br\Electronically Co-Signed By: Tabatha MCCOY\.br\Date and Time Co-Signed: 08/09/24 18:35 EDT\.br\Electronically Co-Signed By: Tabatha MCCOY\.br\Date and Time Co-Signed: 08/10/24 09:49 EDT\.br\Electronically Co-Signed By: Mart Luna MD\.br\Date and Time Co-Signed: 08/11/24 15:51 EDT 08-11-2024 Note Discharge Summary Admission and Discharge Information Admit Date/Time:08/09/2024 13:45 Admitting Physician - Cheryl SILVER, Mart Canales Consulting Physician - Juan Alberto SMITH MD Admitting Diagnoses: Discharge Order Date Discharge Patient - Ordered -- 08/10/24 8:56:00 EDT, To home w/ f/u appts as written, keep appt. with urology for next procedure. Discharge Diagnoses 1. Pyelonephritis, 08/09/2024 2. Hydronephrosis with renal calculous obstruction, Hydronephrosis with ureteral calculus 3. Nausea & vomiting, 08/09/2024 4. Smoker, 08/09/2024 5. Hypertension, 08/09/2024 6. Hyperlipidemia, 08/09/2024 7. Hypothyroidism, 08/09/2024 8. Chronic GERD, 08/09/2024 9. Chronic diarrhea, 08/09/2024 10. History of pulmonary embolism, 08/09/2024 11. On deep vein thrombosis (DVT) prophylaxis, 08/09/2024 Please refer to my progress note for in-depth information regarding each individual diagnosis Procedure History Cystoscopy (07/30/2024), MULTISECTION LIMITED^WO CONTRAST:FIND:PT:ABDOMEN:DOC:CT (07/30/2024), Esophagogastroduodenoscopy (02/23/2024), Colonoscopy (01/30/2024), Esophagogastroduodenoscopy (01/30/2024), Colonoscopy (01/13/2017), Cystoscopy (04/27/2016), Cystoscopic removal [...] and A (tonsillectomy and adenoidectomy) postoperative education. Hospital Course 79-year-old female with PMH of: Smoker, HTN, HLD, hypothyroidism, GERD, Mejia's esophagus, chronic diarrhea, multiple renal calculi, hx. of PE (xarelto) -Pt. presents to ED 2/2 b/l flank pain w/ known renal stones 1. Pyelonephritis (N12: Tubulo-interstitial nephritis, not specified as acute or chronic) 2/2 UTI, renal stones - POA -CT A/P w/o contrast: 4?5mm mild to mod. obstructing calculus at the right UVJ, left ureteral stent with possible sm. calculus adjacent to the distal stent and interval improved left hydronephrosis. Right perinephritic stranding, findings new from 07/30/2024 scan. -Increase IV ceftriaxone to 2g daily - transition to cefdinir for a total of 7 days -Urine cx - prelim - mixed skin cont. -> awaiting final report -IVF 2L to date - off taking po well -Pain mgt. Consult urology: Case reviewed w/ Dr. Smith via phone -Pt. passed stone -> Stone analysis - pending -Cancel OR - cont. atb., february d/c from urology standpoint, keep pending intervention appt. w/ Dr. Eldridge. -I reviewed these instructions w/ pt. and she is aware to follow any pre-procedure instructions she was provided regarding holding medications. 2. Hydronephrosis with renal calculous obstruction, (N13.2: Hydronephrosis with renal and ureteral calculous obstruction)Hydronephrosis with ureteral calculus -See above 3. Nausea & vomiting (R11.2: Nausea with vomiting, unspecified) -Resolved, taking po well this a.m. 4. Smoker (F17.200: Nicotine dependence, unspecified, uncomplicated) Educated on need for cessation 5. History of pulmonary embolism (Z86.711: Personal history of pulmonary embolism) -Xarelto - pt. is aware to follow pre-procedure instructions pending urology procedure w/ Dr. Eldridge -Patient states that all admitting symptoms have significantly improved and/or resolved after passing stone this a.m. Patient is eating and drinking without complaints, denies being SOB, chest pain, pressure, palpitations or difficulty with voiding. Patient is eager to be discharged to home. --Other chronic medical conditions as outlined in note. Refer to d/c plan below: -Case reviewed and discussed with Dr. Luna who is in agreement with current d/c plan. Case will be reviewed and discussed with PCP or siphon operator MD once the hospital tube mill operator is able to reach him/her. I spent a lengthy amount of time with the patient and/or family (teach back m (more content not included)... [facility] Comment on above: Result Comment: Elec tronically Signed By: Tabatha MCCOY\.br\Date and Time Signed: 08/10/24 10:03 EDT\.br\Electronically Co-Signed By: Cheryl SILVER, Mart Canales\.br\Date and Time Co-Signed: 08/11/24 15:51 EDT 08-10-2024 Hospital Discharge instructions Patient Education 08/10/2024 09:34:54 Renal Colic, [id number] Renal Colic Renal colic is pain that is caused by a kidney stone. The pain can be sharp and very bad. It may be felt in your back, belly, side, or groin. It can cause nausea. Renal colic can come and go. Follow these instructions at home: Medicines Take oyzv-kuz-jclwlle and prescription medicines only as told by your doctor. If told, take steps to prevent problems with pooping (constipation). You may need to: ?Take medicines. You will be told what medicines to take. ?Eat foods that are high in fiber. These include beans, whole grains, and fresh fruits and vegetables. ?Limit foods that are high in fat and sugar. These include fried or sweet foods. Ask your doctor if you should avoid driving or using machines while you are taking your medicine. Eating and drinking Drink enough fluid to keep your pee (urine) pale yellow. You may be told to drink at least 8 10 glasses of water each day. Follow instructions from your doctor about what you may eat and drink. If told, change your diet. You may need to eat: ?Less salt (sodium). Eat less than 2 grams (2,000 mg) of salt per day. ?Less meat, poultry, fish, and eggs. ?More fruits and vegetables. Try not to eat spinach, rhubarb, sweet potatoes, or nuts. General instructions Collect pee samples as told by your doctor. Strain your pee every time you pee (urinate), as told by your doctor. Use the strainer that your doctor gives you. Do not throw out the kidney stone after you pass it. Keep the stone so it can be tested by your doctor. Your doctor may give you more instructions. Make sure you know what you can and cannot do. Contact a doctor if: You have a fever or chills. Your pee smells bad or looks cloudy. You have pain or burning when you pee. You have blood in your pee. Get help right away if: The pain in your side or groin gets worse all of a sudden. You get confused. You pass out. This information is not intended to replace advice given to you by your health care provider. Make sure you discuss any questions you have with your health care provider. Document Revised: 07/12/2023 Document Reviewed: 07/12/2023 [employer] Patient Education 2023 [place]. Follow Up Care 08/09/2024 08:29:26 With:Rashida ELDRIDGE Address: [address] [place] [address]- Business (1) When: Unknown Comments:Keep scheduled appointment for outpt. procedure With:JARED HEDRICK Address: [address] [facility] [address] [facility] [place] [address]- Business (1) When:2 to 4 days With:Bob De Jesus Address: [address] [place] [phone] Business (1) When: Unknown [facility] 08-10-2024 Note Patient Education - Text Urology Renal Colic Renal colic is pain that is caused by a kidney stone. The pain can be sharp and very bad. It may be felt in your back, belly, side, or groin. It can cause nausea. Renal colic can come and go. Follow these instructions at home: Medicines ? Take cyzt-oww-jvweyfb and prescription medicines only as told by your doctor. ? If told, take steps to prevent problems with pooping (constipation). You may need to: ? Take medicines. You will be told what medicines to take. ? Eat foods that are high in fiber. These include beans, whole grains, and fresh fruits and vegetables. ? Limit foods that are high in fat and sugar. These include fried or sweet foods. ? Ask your doctor if you should avoid driving or using machines while you are taking your medicine. Eating and drinking ? Drink enough fluid to keep your pee (urine) pale yellow. You may be told to drink at least 8?10 glasses of water each day. ? Follow instructions from your doctor about what you may eat and drink. ? If told, change your diet. You may need to eat: ? Less salt (sodium). Eat less than 2 grams (2,000 mg) of salt per day. ? Less meat, poultry, fish, and eggs. ? More fruits and vegetables. ? Try not to eat spinach, rhubarb, sweet potatoes, or nuts. General instructions ? Collect pee samples as told by your doctor. ? Strain your pee every time you pee (urinate), as told by your doctor. Use the strainer that your doctor gives you. ? Do not throw out the kidney stone after you pass it. Keep the stone so it can be tested by your doctor. Your doctor may give you more instructions. Make sure you know what you can and cannot do. Contact a doctor if: ? You have a fever or chills. ? Your pee smells bad or looks cloudy. ? You have pain or burning when you pee. ? You have blood in your pee. Get help right away if: ? The pain in your side or groin gets worse all of a sudden. ? You get confused. ? You pass out. This information is not intended to replace advice given to you by your health care provider. Make sure you discuss any questions you have with your health care provider. Document Revised: 07/12/2023 Document Reviewed: 07/12/2023 [employer] Patient Education ? 2023 [place]. tamsulosin (nevarez aylin MEREDITH sin) Flomax What is the most important information I should know about tamsulosin? Use only as directed. Tell your doctor if you use other medicines or have other medical conditions or allergies. What is tamsulosin? Tamsulosin is used to treat symptoms of benign prostatic hyperplasia (enlarged prostate). Tamsulosin is not approved for use in women or children. Tamsulosin may also be used for purposes not listed in this medication guide. What should I discuss with my healthcare provider before taking tamsulosin? You should not use tamsulosin if you are allergic to it. Tell your doctor if you have ever had: ?? prostate cancer; ? low blood pressure; ? an allergy to sulfa drugs; or ? liver or kidney disease. Tamsulosin can affect your pupils. If you have cataract surgery, tell the surgeon you use this medicine. Ask your doctor about prostate cancer screening before and while taking tamsulosin. Tamsulosin is not approved for use in women. How should I take tamsulosin? Follow all directions on your prescription label and read all medication guides or instruction sheets. Use the medicine exactly as directed. Tamsulosin is usually taken once a day, within 30 minutes after the same meal each day. Swallow the capsule whole and do not crush, chew, break, or open it. Your blood pressure will need to be checked often. If you stop using this medicine, do not start it again without your doctor's advice. Store tightly closed at room temperature, away from moisture and heat. What happens if I miss a dose? Take the medicine as soon as you can, but skip the missed dose if it is almost time for your next dose. Do not take two doses at one time. If you stop using this medicine for several days in a row, do not start it again without your doctor's advice. What happens if I overdose? Seek emergency medical attention or call the Poison Help line at . What should I avoid while taking tamsulosin? Avoid driving or hazardous activity until you know how this medicine will affect you. Your reactions could be impaired. Avoid getting up too fast from a sitting or lying position, or you may feel dizzy. What are the possible side effects of tamsulosin? Get emergency medical help if you have signs of an allergic reaction (hives, difficult breathing, swelling in your face or throat) or a severe skin reaction (fever, sore throat, burning eyes, skin pain, red or purple skin rash with blistering and peeling). Tamsulosin may lower your blood pressure and may cause dizziness or fainting, especially when you first start taking it or your dose changes. Stop using tamsu (more content not included)... [facility] 08-09-2024 Note Consultation Note Patient: CHELSEA CURRY Age: 79 years Sex: Female : 1945 Associated Diagnoses: None Author: Juan Alberto SMITH MD Chief Complaint 08/09/2024 14:33 EDT abdominal pain, kidney stone 08/09/2024 8:30 EDT patient presents with RLQ abdominal pain that started yesterday with nausea and vomiting. dx with kidney stone on L side- saw urology yesterday. hematuria and dysuria since dx 08/08/2024 10:45 EDT f/u cysto & stent placement This is an 79-year-old female, patient of Dr. Eldridge who is actually on the schedule for left-sided lithotripsy. She is status post cystoscopy and left double-J stent. She actually saw him yesterday in the office. Unfortunately she then developed bilateral flank pain and presented to the ER where she is found to have a right distal ureteral calculus at this point causing right-sided hydronephrosis. The left-sided stent is in good position. She is admitted with urologic consultation for possible intervention. She denies fevers or chills. The entire past medical history, past surgical history, system review, family history, social history, medications, and allergies are as noted in the admission history and physical performed by Tabatha Vallejo earlier today and is unchanged. Health Status Allergies: Allergic Reactions (Selected) Severity Not Documented Codeine- Nausea. Demerol- Hyper. Iodinated radiocontrast dyes- Nausea. Ketek- Unknown. Nubain- Rash. Penicillins- Rash. Phenergan- Hives. Pyridium- Nausea. Sulfa drugs- Rash. Tobramycin- Nausea. Nonallergic Reactions (Selected) Severity Not Documented Ciprofloxacin- Unknown. Meperidine- Unknown. Moxifloxacin- Unknown. Potassium citrate- Unknown. Promethazine- Aof. Protamine- Unknown. Shellfish- Unknown. Telithromycin- Unknown. Current medications: (Selected) Documented Medications Documented Colace: 20 mg, Oral, Daily, Refills(s) 0 PreserVision AREDS: See Instructions, Refill(s) 0, Prophylaxis Rybelsus 14 mg oral tablet: 14 mg, Oral, Daily, Refills(s) 0 Vitamin D3: 50 mcg, Oral, Daily, Refills(s) 0, Prophylaxis Xarelto 20 mg oral tablet: 20 mg = 1 tab(s), Oral, Daily, Refills(s) 0, Blood Thinner citalopram: 10 mg, Oral, Daily, Refills(s) 0, Depression hydrochlorothiazide 25 mg Tab: 25 mg = 1 tab(s), Oral, Daily, Refills(s) 0, High blood pressure levothyroxine: 88 mcg, Oral, Daily, Refills(s) 0, Thyroid mirtazapine: 15 mg, Oral, Once a day (at bedtime), Refills(s) 0, Depression polyethylene glycol 3350: 17 gm, Oral, Daily, Refill(s) 0 simvastatin: See Instructions, 20 mg Oral Monday, Monday, Monday, Refills(s) 0, High cholesterol, Home Medications (13) Active citalopram 10 mg, Oral, Daily Colace 20 mg, Oral, Daily hydrochlorothiazide 25 mg Tab 25 mg = 1 tab(s), Oral, Daily levothyroxine 88 mcg, Oral, Daily Linzess 145 mcg oral capsule 145 mcg = 1 cap(s), Oral, Daily mirtazapine 15 mg, Oral, Once a day (at bedtime) Pantoprazole [address] Tab 40 mg = 1 tab(s), Oral, Daily polyethylene glycol 3350 17 gm, Oral, Daily PreserVision AREDS See Instructions Rybelsus 14 mg oral tablet 14 mg, Oral, Daily simvastatin See Instructions Vitamin D3 50 mcg, Oral, Daily Xarelto 20 mg oral tablet 20 mg = 1 tab(s), Oral, Daily Problem list: All Problems Osteoarthritis / SNOMED CT 0772831973 / Confirmed Diabetes / SNOMED CT 629579733 / Confirmed Hypertension / SNOMED CT 9231986339 / Confirmed Hypothyroidism / SNOMED CT 03405500 / Confirmed Kidney stones / SNOMED CT 081800844 / Confirmed Pyelonephritis / SNOMED CT 46824980 / Confirmed Hyperlipidemia / SNOMED CT 54760574 / Confirmed Other urethral stricture, female / SNOMED CT 185388409 / Confirmed Chronic cystitis / SNOMED CT 44711374 / Confirmed Nocturia / SNOMED CT 032420368 / Confirmed Urinary urgency / SNOMED CT 412903226 / Confirmed Urinary incontinence without sensory awareness / SNOMED CT 2074983737 / Confirmed Urinary frequency / SNOMED CT 700115980 / Confirmed 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 / Confirmed Urinary hesitancy / SNOMED CT 276460784 / Confirmed Renal cyst / SNOMED CT 2330813862 / Confirmed Glucosuria / SNOMED CT 11221396 / Confirmed Anticoagulated / SNOMED CT 817728558 / Confirmed UTI (urinary tract infection) / SNOMED CT 767738850 / Confirmed Mixed incontinence / SNOMED CT 97415112 / Confirmed Urinary incontinence / SNOMED CT 1118412947 / Confirmed Chronic diarrhea / SNOMED CT 333448985 / Confirmed History of colon polyps / SNOMED CT 2320929499 / Confirmed Unintentional weight loss / SNOMED CT 2143860785 / Confirmed Mejia's esophagus / SNOMED CT 293026666 / Confirmed Fecal incontinence / SNOMED CT 406801483 / Confirmed Schatzki's ring / SNOMED CT 673184856 / Confirmed Acid reflux / SNOMED CT 375228466 / Confirmed Dysphagia / SNOMED CT 75448297 / Confirmed Abdominal cramping / SNOMED CT 440441129 / Confirmed S/P cholecystect (more content not included)... [facility] Comment on above: Result Comment: Elec tronically Signed By: Juan Alberto SMITH MD\.br\Date and Time Signed: 08/09/24 19:11 EDT 08-09-2024 Evaluation + Plan note Extrac jody from: Title:Urology Consult and H&P 2 Author:Juan Alberto SMITH MD Date:08/09/24 Impression and Plan Diagnosis Complaint of Abdominal pain (PNED [id number], Reason For Visit, Nursing). Hydronephrosis with renal calculous obstruction (UOO60-IP N13.2, Discharge, Medical). Kidney stones (BWU05-ON N20.0, Working, Medical). Course: Worsening, Reviewed CT scan, current, as well as old CT scan. Reviewed labs Reviewed urinalysis Discussed extensively with the patient. Unfortunately she has now developed a right distal ureteral calculus measuring 5 mm in size. She was given the option of conservative management versus operative intervention and she is choosing the latter. She would like to rid herself of the right distal stone with the possibility of ureteroscopy and holmium laser ablation and basket extraction. She knows that a right ureteral stent may be indicated temporarily. The left ureteral stent is indwelling with upcoming plans with Dr. Eldridge for ESWL apparently. The patient is aware of the anesthesia risk of heart and lung problems etc. She is already on intravenous antibiotics for coverage. I have taken the liberty to place her on the surgical schedule for tomorrow morning. We will proceed tomorrow morning for hopefully an expeditious extraction of this right distal stone.. Extracted from: Title:ED Note Author:Salvador Peraza PA-C te:08/09/24 1. Kidney stones (N20.0: Ben culus of kidney) 2. Abdominal pain (R10.9: Unspecified abdominal pain) 3. Nausea & vomiting (R11.2: Nausea with vomiting, unspecified) 4. UTI (urinary tract infection) (N39.0: Urinary tract infection, site not specified) Orders: ceftriaxone + Sodium Chloride 0.9% intravenous solution 50 mL, 1,000 mg = 1 EA, IV Piggyback, Once, Stop date 08/09/24 12:21:00 EDT, STAT, Start date 08/09/24 12:21:00 EDT, 100 mL/hr, Infuse over 30 minute(s), 08/09/24 12:21:00 EDT morphine, 2 mg = 1 mL, Injection, IV Push, Once, Stop date 08/09/24 8:47:00 EDT, STAT, Start date 08/09/24 8:47:00 EDT, 08/09/24 8:47:00 EDT ondansetron, 4 mg = 2 mL, Injection, IV Push, Once, Stop date 08/09/24 12:06:00 EDT, STAT, Start date 08/09/24 12:06:00 EDT, 08/09/24 12:06:00 EDT ondansetron, 4 mg = 2 mL, Injection, IV Push, Once, Stop date 08/09/24 8:46:00 EDT, STAT, Start date 08/09/24 8:46:00 EDT, 08/09/24 8:46:00 EDT Sodium Chloride 0.9% intravenous solution, 1,000 mL, Soln-IV, IV, Once, Stop date 08/09/24 12:21:00 EDT, STAT, Start date 08/09/24 12:21:00 EDT, Infuse over 61, minute(s) Basic Metabolic Panel Bladder Scan CBC w/ Auto Diff CT Abdomen/Pelvis w/o Contrast ED Physician consult Hospitalist for continued care eGFR Extra Blue Tube Extra SST Tube Hepatic Function Panel Lipase Level NPO Diet Post Void Residual UA with Cult Rflx Urine Culture Urine Strain Future Appointments Appointment Date:08/15/2024 08:30:00 AM Scheduled Provider: Location:[facility] Appointment Type:Surgery FT Appointment Date:09/10/2024 02:40:00 PM Scheduled Provider:ÁNGELA JUAREZ PA-C Location:[facility] Appointment Type:URO Office Visit Diagnostic Tests Pending * Calculi Analysis Urinary 08/10/24 Future Scheduled Tests Laboratory* Fecal WBC Lactoferrin 01/17/24 * Giardia lamblia, Direct Detection EIA 01/17/24 * O & P Exam, Routine 01/17/24 * Clostridium Difficile PCR 01/17/24 * Enteric Panel by PCR 01/17/24 [facility] 10-10-2024 Hospital Discharge instructions Patient Education 08/08/2024 11:24:16 Dietary Guidelines to Help Prevent Kidney Stones Dietary Guidelines to Help Prevent Kidney Stones Kidney stones are deposits of minerals and salts that form inside your kidneys. Your risk of developing kidney stones may be greater depending on your diet, your lifestyle, the medicines you take, and whether you have certain medical conditions. Most people can lower their risks of developing kidney stones by following these dietary guidelines. Your dietitian may give you more specific instructions depending on your overall health and the type of kidney stones you tend to develop. What are tips for following this plan? Reading food labels Choose foods with no salt added or low-salt labels. Limit your salt (sodium) intake to less than 1,500 mg a day. Choose foods with calcium for each meal and snack. Try to eat about 300 mg of calcium at each meal.Foods that contain 200 500 mg of calcium a serving include: ?8 oz (237 mL) of milk, dzfjtjc-qyfzgardbhgi-jljge milk, and calcium- fortifiedfruit juice. Calcium-fortified means that calcium has been added to these drinks. ?8 oz (237 mL) of kefir, yogurt, and soy yogurt. ?4 oz (114 g) of tofu. ?1 oz (28 g) of cheese. ?1 cup (150 g) of dried figs. ?1 cup (91 g) of cooked broccoli. ?One 3 oz (85 g) can of sardines or mackerel. Most people need 1,000 1,500 mg of calcium a day. Talk to your dietitian about how much calcium is recommended for you. Shopping Buy plenty of fresh fruits and vegetables. Most people do not need to avoid fruits and vegetables, even if these foods contain nutrients that may contribute to kidney stones. When shopping for convenience foods, choose: ?Whole pieces of fruit. ?Pre-made salads with dressing on the side. ?Low-fat fruit and yogurt smoothies. Avoid buying frozen meals or prepared deli foods. These can be high in sodium. Look for foods with live cultures, such as yogurt and kefir. Choose high-fiber grains, such as whole-wheat breads, oat bran, and wheat cereals. Cooking Do not add salt to food when cooking. Place a salt shaker on the table and allow each person to addtheir own salt to taste. Use vegetable protein, such as beans, textured vegetable protein (TVP), or tofu, instead of meat inpasta, casseroles, and soups. Meal planning Eat less salt, if told by your dietitian. To do this: ?Avoid eating processed or pre-made food. ?Avoid eating fast food. Eat less animal protein, including cheese, meat, poultry, or fish, if told by your dietitian. To dothis: ?Limit the number of times you have meat, poultry, fish, or cheese each week. Eat a diet free of meat at least 2 days a week. ?Eat only one serving each day of meat, poultry, fish, or seafood. ?When you prepare animal proteins, cut pieces into small portion sizes. For most meat and fish, oneserving is about the size of the palm of your hand. Eat at least five servings of fresh fruits and vegetables each day. To do this: ?Keep fruits and vegetables on hand for snacks. ?Eat one piece of fruit or a handful of berries with breakfast. ?Have a salad and fruit at lunch. ?Have two kinds of vegetables at dinner. You may be told to limit foods that are high in a substance called oxalate. These include: ?Spinach (cooked), rhubarb, beets, sweet potatoes, and [place] chard. ?Peanuts. ?Potato chips, [place] fries, and baked potatoes with skin on. ?Nuts and nut products. ?Chocolate. If you regularly take a diuretic medicine, make sure to eat at least 1 or 2 servings of fruits or vegetables that are high in potassium each day. These include: ?Avocado. ?Banana. ?[place], prune, carrot, or tomato juice. ?Baked potato. ?Cabbage. ?Beans and split peas. Lifestyle Drink enough fluid to keep your urine pale yellow. This is the most important thing you can do. Spread your fluid intake throughout the day. If you drink alcohol: ?Limit how much you have to: ?0 1 drink a day for women who are not . ?0 2 drinks a day for men. ?Know how much alcohol is in your drink. In the [place] one drink equals one 12 oz bottle of beer (355 mL), one 5 oz glass of wine (148 mL), or one 1 oz glass of hard liquor (44 mL). Lose weight if told by your health care provider. Work with your dietitian to find an eating plan and weight loss strategies that work best for you. General information Talk to your health care provider and dietitian about taking daily supplements. Depending on your health and the cause of your kidney stones, you may be told: ?Do not take high-dose supplements of vitamin C (1,000 mg a day or more). ?To take a calcium supplement. ?To take a daily probiotic supplement. ?To take other supplements such as magnesium, fish oil, or vitamin B6. Take gnvy-zkj-lbvcjbp and prescription medicines only as told by your health care provider. These include supplements. What foods should I limit? Limit your intake of the following foods, or eat them as told by your dietitian. Vegetables Spinach. Rhubarb. Beets. Canned vegetables. Pickles. Olives. Baked potatoes with skin. Grains Wheat bran. Baked goods. Salted crackers. Cereals high in sugar. Meats and other proteins Nuts. Nut butters. Large portions of meat, poultry, or fish. Salted, precooked, or cured meats, such as sausages, meat loaves, and hot dogs. Dairy Cheeses. Beverages Regular soft drinks. Regular vegetable juice. Seasonings and condiments Seasoning blends with salt. Salad dressings. Soy sauce. Ketchup. Barbecue sauce. Other foods Canned soups. Canned pasta sauce. Casseroles. Pizza. Lasagna. Frozen meals. Potato chips. [place] fries. The items listed above may not be a complete list of foods and beverages you should limit. Contact a dietitian for more information. What foods should I avoid? Talk to your dietitian about specific foods you should avoid based on the type of kidney stones youhave and your overall health. Fruits Grapefruit. The item listed above may not be a complete list of foods and beverages you should avoid. Contact adietitian for more information. Summary Kidney stones are deposits of minerals and salts that form inside your kidneys. You can lower your risk of kidney stones by making changes to your diet. The most important thing you can do is drink enough fluid. Drink enough fluid to keep your urine pale yellow. Talk to your dietitian about how much calcium you should have each day, and eat less salt and animal protein as told by your dietitian. This information is not intended to replace advice given to you by your health care provider. Make sure you discuss any questions you have with your health care provider. Document Revised: 01/26/2023 Document Reviewed: 01/26/2023 [employer] Patient Education 2023 [place]. Follow Up Care 07/31/2024 14:56:54 With:ANA SILVER, DANIEL YOUNG Address: When: Unknown [facility] 10-10-2024 NotePatient Education Nephrology Dietary Guidelines to Help Prevent Kidney Stones Kidney stones are deposits of minerals and salts that form inside your kidneys. Your risk of developing kidney stones may be greater depending on your diet, your lifestyle, the medicines you take, and whether you have certain medical conditions. Most people can lower their risks of developing kidney stones by following these dietary guidelines. Your dietitian may give you more specific instructions depending on your overall health and the type of kidney stones you tend to develop. What are tips for following this plan? Reading food labels ? Choose foods with no salt added or low-salt labels. Limit your salt (sodium) intake to less than 1,500 mg a day. ? Choose foods with calcium for each meal and snack. Try to eat about 300 mg of calcium at each meal. Foods that contain 200?500 mg of calcium a serving include: ? 8 oz (237 mL) of milk, bjkjpgy-nyethscvgwlt-bfviz milk, and calcium- fortifiedfruit juice. Calcium-fortified means that calcium has been added to these drinks. ? 8 oz (237 mL) of kefir, yogurt, and soy yogurt. ? 4 oz (114 g) of tofu. ? 1 oz (28 g) of cheese. ? 1 cup (150 g) of dried figs. ? 1 cup (91 g) of cooked broccoli. ? One 3 oz (85 g) can of sardines or mackerel. Most people need 1,000?1,500 mg of calcium a day. Talk to your dietitian about how much calcium is recommended for you. Shopping ? Buy plenty of fresh fruits and vegetables. Most people do not need to avoid fruits and vegetables, even if these foods contain nutrients that may contribute to kidney stones. ? When shopping for convenience foods, choose: ? Whole pieces of fruit. ? Pre-made salads with dressing on the side. ? Low-fat fruit and yogurt smoothies. ? Avoid buying frozen meals or prepared deli foods. These can be high in sodium. ? Look for foods with live cultures, such as yogurt and kefir. ? Choose high-fiber grains, such as whole-wheat breads, oat bran, and wheat cereals. Cooking ? Do not add salt to food when cooking. Place a salt shaker on the table and allow each person to add their own salt to taste. ? Use vegetable protein, such as beans, textured vegetable protein (TVP), or tofu, instead of meat in pasta, casseroles, and soups. Meal planning ? Eat less salt, if told by your dietitian. To do this: ? Avoid eating processed or pre-made food. ? Avoid eating fast food. ? Eat less animal protein, including cheese, meat, poultry, or fish, if told by your dietitian. To do this: ? Limit the number of times you have meat, poultry, fish, or cheese each week. Eat a diet free of meat at least 2 days a week. ? Eat only one serving each day of meat, poultry, fish, or seafood. ? When you prepare animal proteins, cut pieces into small portion sizes. For most meat and fish, one serving is about the size of the palm of your hand. ? Eat at least five servings of fresh fruits and vegetables each day. To do this: ? Keep fruits and vegetables on hand for snacks. ? Eat one piece of fruit or a handful of berries with breakfast. ? Have a salad and fruit at lunch. ? Have two kinds of vegetables at dinner. ? You may be told to limit foods that are high in a substance called oxalate. These include: ? Spinach (cooked), rhubarb, beets, sweet potatoes, and [place] chard. ? Peanuts. ? Potato chips, [place] fries, and baked potatoes with skin on. ? Nuts and nut products. ? Chocolate. ? If you regularly take a diuretic medicine, make sure to eat at least 1 or 2 servings of fruits orvegetables that are high in potassium each day. These include: ? Avocado. ? Banana. ? [place], prune, carrot, or tomato juice. ? Baked potato. ? Cabbage. ? Beans and split peas. Lifestyle ? Drink enough fluid to keep your urine pale yellow. This is the most important thing you can do. Spread your fluid intake throughout the day. ? If you drink alcohol: ? Limit how much you have to: ? 0?1 drink a day for women who are not . ? 0?2 drinks a day for men. ? Know how much alcohol is in your drink. In the [place] one drink equals one 12 oz bottle of beer (355 mL), one 5 oz glass of wine (148 mL), or one 1? oz glass of hard liquor (44 mL). ? Lose weight if told by your health care provider. Work with your dietitian to find an eating planand weight loss strategies that work best for you. General information ? Talk to your health care provider and dietitian about taking daily supplements. Depending on yourhealth and the cause of your kidney stones, you may be told: ? Do not take high-dose supplements of vitamin C (1,000 mg a day or more). ? To take a calcium supplement. ? To take a daily probiotic supplement. ? To take other supplements such as magnesium, fish oil, or vitamin B6. ? Take elio-sah-wvhetwb and prescription medicines only as told by your health care provider. Theseinclude suppleme (more content not included)...[facility]10-07-2024 History of Present illness Narrative* Jared Hedrick MD - 08/05/2024 9:45 AM EDT Images from the original note were not included. Chelsea Curry is a 79 y.o. female presents with chief complaint of 3 Month Follow Up HPI: Review lab drawn 07/31/2024. HbA1c = 7.3 Patient has a stent placement for a left 7mm kidney stone. She went to ER 07/30/2024 at [facility]. She is uncomfortable and has heavy bleeding in urine. She has follow-up to schedule lithotripsy with Dr. Chacon. Patient also reports having a bowel blockage 2 weeks ago. She tried several OTC options. She had fecal impaction. History of Present Illness Patient presents today for follow up of chronic medical problems. Review lab drawn 07/31/2024. HbA1c= 7.3 Patient has a stent placement for a left 7mm kidney stone. She went to ER 07/30/2024 at [facility]. She is uncomfortable and has heavy bleeding in urine. She has follow-up toschedule lithotripsy with Dr. Chacon. Patient also reports having a bowel blockage 2 weeksago. She tried several OTC options. She had fecal impaction. She experienced severe pain due to impaction, which she managed at home without seeking emergency care. She attempted to alleviate the impaction manually and used bowel softeners, which eventually resolved the issue. Prior to this, she had been experiencing diarrhea for 5 to 6 days. She was advisedto take daily bowel softeners and fiber supplements, which she has been doing for a couple of weeks. A assistant customer service manager in [place] suggested trying this regimen for two weeks and then considering Linzess if it didn't work. Currently, she is not experiencing diarrhea. She takes Tylenol 3 or 4 times a day for pain relief. She often feels the need to urinate but experiences spasms and pain during urination, along with blood in her urine. She has had to change her pad twice today due to bleeding. She passed a kidney stone a month ago and was prescribed medication for occasional leakage and Flomax for 7 days. She plans to discuss this with her doctor on . She has a 7 mm kidney stone and has noticed dark red blood in her pad but is unsure of its origin. She frequently feels the need to urinate and experiences minor leakage when she does. She was given morphine three times in the hospital and Dilaudid for pain relief. She does not take calcium pills but consumes cottage cheese and cheese. IMMUNIZATIONS She has received influenza vaccine. I have reviewed and reconciled the history and medication list with the patient today. HISTORIES: PAST MEDICAL HISTORY: Past Medical History: Diagnosis Date Allergic rhinitis ARMD (age related macular degeneration) BMI 26.0-26.9,adult Colon polyps Diabetes mellitus due to underlying condition with diabetic polyneuropathy (CMS/HCC) Diastolic dysfunction Hypothyroidism (CMS/HCC) IBS (irritable bowel syndrome) Insomnia Migraine headache (CMS/HCC) Mixed hyperlipidemia (CMS/HCC) Gomez's neuroma of right foot OM (onychomycosis) PE (physical exam), annual 12/13/2019 Personal history of medical treatment 04/09/2015 EF 55-60% Schatzki's ring of distal esophagus 04/09/2023 Type 2 diabetes mellitus (CMS/HCC) Uric acid kidney stone Vitamin D deficiency SURGICAL HISTORY: Past Surgical History: Procedure Laterality Date APPENDECTOMY 1985 BACK SURGERY 2001 CARPAL TUNNEL RELEASE 2006 CATARACT EXTRACTION, BILATERAL 2021 CHOLECYSTECTOMY 1980 COLONOSCOPY 01/03/2017 COLONOSCOPY 01/30/2024 CT ANGIOGRAM ABDOMEN 07/06/2023 CT ANGIOGRAM ABDOMEN 07/06/[address] CYSTOSTOMY 04/24/2016 [facility] DILATION AND CURETTAGE 80s EGD 2013 colonoscopy EGD 01/30/2024 with biopsy HYSTERECTOMY 1985 MARIANA/BSO LITHOTRIPSY 2012 LUMBAR FUSION 2002 MENISCECTOMY 2003 Abrasion chondroplasty (Rt Medial Meniscus tear, Chondromalacia) MENISCECTOMY Left 11/23/2016 knee lateral NOSE SURGERY OTHER SURGICAL HISTORY Lt Parotidectomy with FND 05-14-09 path Papillary cystadenoma (Lt Parotid Mass) OTHER SURGICAL HISTORY Arthrocentesis of the right hip trochanteric bursa OTHER SURGICAL HISTORY 2013 Dr. Jay [facility] arhtroplasty & CTR LT OTHER SURGICAL HISTORY Left 04/20/2015 RCR OTHER SURGICAL HISTORY L4 & L5 fusion RENAL ARTERY STENT Right 2012 ROTATOR CUFF REPAIR Right 2008 ROTATOR CUFF REPAIR Left 2015 SALIVARY GLAND SURGERY 2009 partoidectomy TONSILLECTOMY SOCIAL HISTORY: Social History Tobacco Use Smoking status: Never Smokeless tobacco: Never Vaping Use Vaping status: Never Used Substance Use Topics Alcohol use: Never Comment: Caffeine intake: coffee, tea, pop Drug use: Never Depression: Not at risk (01/12/2024) PHQ-2 PHQ-2 Score: 1 FAMILY HISTORY: Family History Problem Relation Name Age of Onset Heart failure Mother Cancer Mother COPD Mother Cancer Father Stroke Maternal Grandmother Diabetes Maternal Grandmother Hypertension Maternal Grandmother Breast cancer Neg Hx Colon cancer Neg Hx Ovarian cancer Neg Hx MEDICATIONS: Current Outpatient Medications Medication Instructions Blood Glucose Monitoring Suppl ([employer] Flex System) w/Device kit cholecalciferol 125 MCG (5000 UT) capsule 1 capsule, Oral, Daily cholestyramine (Questran) 4 GM/DOSE powder Oral, 3 times daily with meals citalopram (CELEXA) 10 mg, Oral, Daily clobetasol (Temovate) 0.05 % cream 1 application , Every 12 hours diphenoxylate-atropine (Lomotil) 2.5-0.025 MG tablet 1 tablet, Oral, 4 times daily PRN hydroCHLOROthiazide (HYDRODIURIL) 25 mg, Oral, Daily Levoxyl 88 MCG tablet TAKE 1 TABLET EVERY MORNINGON AN EMPTY STOMACH Linzess 145 mcg, Oral, Daily before breakfast mirtazapine (REMERON) 15 mg, Oral, Nightly Multiple Vitamins-Minerals (PreserVision AREDS 2) capsule 1 capsule OneTouch Verio test strip USE TO TEST ONCE A DAY E11.40 pantoprazole (PROTONIX) 40 mg, Oral, Daily before breakfast, Do not crush, chew, or split. Probiotic Product (ALIGN PO) Oral semaglutide (RYBELSUS) 14 mg, Oral, Daily before breakfast simvastatin (Zocor) 20 MG tablet TAKE 1 TABLET IN THE EVENING MONDAY, MONDAY, AND MONDAY triamcinolone (Kenalog) 0.1 % cream 1 application , Topical, 2 times daily PRN Xarelto 20 MG tablet TAKE 1 TABLET ONCE DAILY ALLERGIES: Allergies Allergen Reactions Clarithromycin GI intolerance Other Reaction(s): stomach ache Codeine Nausea Only Meloxicam GI intolerance Meperidine Anxiety Metformin Hcl GI intolerance Moxifloxacin Other Reaction(s): stomach ache Nalbuphine Rash Penicillin G Rash Phenazopyridine GI intolerance Promethazine Itching and Other Protamine Other reaction(s): Unknown Shellfish Allergy Hives Scallops only Sulfa Antibiotics Rash Tobramycin Hives Tramadol GI intolerance PHYSICAL EXAM: Visit Vitals BP 112/60 (BP Location: Left arm, Patient Position: Sitting) Pulse 88 Ht 5' 4 Wt 143 lb SpO2 97% BMI 24.55 kg/m Smoking Status Never BSA 1.71 m BP Readings from Last 3 Encounters: 08/05/24 112/60 04/29/24 112/60 04/12/24 124/60 Wt Readings from Last 3 Encounters: 08/05/24 143 lb 04/29/24 149 lb 04/12/24 149 lb 14.6 oz Physical Exam Vitals reviewed. Constitutional: General: She is not in acute distress. Appearance: Normal appearance. Neck: Vascular: No carotid bruit. Cardiovascular: Rate and Rhythm: Normal rate and regular rhythm. Heart sounds: No murmur heard. No friction rub. Pulmonary: Breath sounds: Normal breath sounds. No wheezing or rhonchi. Musculoskeletal: Cervical back: Neck supple. Right lower leg: No edema. Left lower leg: No edema. Lymphadenopathy: Cervical: No cervical adenopathy. Skin: General: Skin is warm and dry. Neurological: General: No focal deficit present. Mental Status: She is alert. Psychiatric: Mood and Affect: Mood normal. Results Laboratory Studies B12 level is normal. Thyroid function is normal. A1c is 7.3. Kidney function is good. Potassium is slightly low. ASSESSMENT AND PLAN: Assessment & Plan 1. Type 2 diabetes mellitus with diabetic neuropathy, without long-term current use of insulin ([facility]) Her A1c is 7.3, which is stable but could be improved. No changes to her current medication regimenwere recommended at this time due to her current health issues. - Comprehensive metabolic panel; Future - CBC and differential; Future - Hemoglobin a1c with eag; Future - Microalbumin / creatinine urine ratio; Future - Urinalysis with microscopic; Future - Comprehensive metabolic panel - CBC and differential - Hemoglobin a1c with eag - Microalbumin / creatinine urine ratio - Urinalysis with microscopic 2. Essential hypertension ([facility]) Blood pressure doing well. Continue lifestyle modifications to include minimizing salt and alcohol,exercising regularly, and keeping weight down. Continue current medications. - Comprehensive metabolic panel; Future - Comprehensive metabolic panel - hydroCHLOROthiazide (HYDRODiuril) 25 MG tablet; Take 1 tablet (25 mg) by mouth Daily Dispense: 90tablet; Refill: 3 3. Generalized anxiety disorder (CMS/HCC) Doing well. Continue current regimen. 4. Acquired hypothyroidism ([facility]) Doing well. Continue current regimen. - TSH; Future - TSH - levothyroxine (Levoxyl) 88 MCG tablet; Take 1 tablet (88 mcg) by mouth in the morning. Take before meals. Dispense: 90 tablet; Refill: 3 5. Kidney stone She is experiencing significant pain and blood in her urine due to a 7 mm kidney stone. She has a lithotripsy consultation scheduled for , where the procedure will be scheduled. She is currently taking Tylenol for pain relief, which provides some relief. She was advised to continue taking Flomax to help pass the stone. The potential for constipation from overactive bladder medication was discussed, and she was advised to avoid it until the kidney stone issue is resolved. She was also advised to maintain a regular intake of calcium through her diet to prevent future stones. 6. History of pulmonary embolism Stable. Continue to monitor. 7. Vitamin B12 deficiency (non anemic) Stable. Continue to monitor. 8. Fecal impaction (CMS/HCC) She experienced severe pain from a fecal impaction, which she managed at home with bowel softeners and manual disimpaction. She was advised to continue taking bowel softeners and fiber supplements daily. If symptoms persist, Linzess may be considered as a treatment option. 9. Hypokalemia Her potassium level is slightly low. She was advised to incorporate more potassium-rich foods into her diet over the next week. A list of foods high in potassium was provided. No medication was prescribed as the deficiency is minimal. 10. Need for immunization against influenza - Flu vaccine, trivalent, adjuvanted, preservative free 11. Mixed hyperlipidemia (CMS/HCC) - Lipid panel; Future - Lipid panel documented in this encounterChildren[facility] [id number] NoteProgress Note-Physician When went to [facility] to see pt for admission, pt had already been discharged by urology following procedure with follow up appt. Therefore pt was [facility]rology[facility] HospitalComment on above:Result Comment: Electronically Signed By: Lizbeth COOMBS\.br\Date and Time Signed: 07/30/24 16:35 EDT\.br\Electronically Co-Signed By: Bacilio Mayen DO\.br\Date and Time Co-Signed:07/31/24 09:32 [id number] Hospital Discharge instructions Patient Education 07/30/2024 13:58:06 Sere-Yxnu-si Utereroscopy,Lithotripsy, Stone Extraction, Stent Placement (CUSTOM) [facility] [place], [place] Dr. Juan Alberto Moe Post-operative Instructions for Ureteroscopy, Laser Lithotripsy, Stone Extraction and Stent Placement There are no incisions or dressings to be concerned with, as the procedure was performed inside theurinary system. For 24 hours after surgery: No driving or operating machinery Do not make important decisions Do not consume alcohol, sleeping pills Stent Placement You may have a stent which spans the distance between your bladder and your kidney, allowing urine to pass through. It prevents blockage from swelling, kidney stones in ureter (tube connecting the kidney to the bladder), or scars. The presence of the stent may cause: Back or side pain, especially with urination Frequent or urgent urination Bladder pressure or pain Blood in urine You may pass stone debris or small blood clots, which is expected. Drinking plenty of water to dilute the urine may help. If there is a thread coming out of urinary channel, be careful not to accidently pull on this, as it is attached to the stent. The stent will most likely be removed in the office during a short procedure in which a scope is placed into the bladder, the stent is grasped and removed. At other times the stent may need to stay longer, either in preparation for other procedures or for other reasons. If it is to remain intermediate teacher, however, changes of the stent are required (about every 3-4 months). Diet You may resume your normal diet, but you may want to start slowly and avoid spicy food, caffeine, carbonated beverages and alcohol, especially if you have a stent. Your diet and fluid intake may makeirritation from the stent worse. Activity You may resume your normal activities, although you should take it easy on the day of the procedure. Minimizing activity may decrease the back discomfort and irritation from the stent, if present. Medications You may resume your home medications unless instructed otherwise. Hold aspirin, ibuprofen, Coumadin (warfarin) and other blood thinners until your office visit (we will discuss when to resume these medications) Take your prescribed medications as directed, including your antibiotics. You may also be given a prescription for pain medicine or medicines to help with the bladder irritation from stent, if present. Things to watch for which would require an Emergency Room Visit (or call 911) (This is not a complete list) Fever over 101.5 degrees, with or without chills Severe bleeding Severe drug reactions with itching, hives, rash, or severe flank pain Tenderness or swelling or the calves, chest pain, or shortness of breath Please call the office to arrange for your post-operative appointment (with XRAY) [phone] 07/30/2024 13:57:20 Post Op Patient Instructions - FT (CUSTOM) 07/30/2024 13:35:26 Kidney Stones, Pbab-wi-Yzle Kidney Stones Kidney stones are rock-like masses that form inside of the kidneys. Kidneys are organs that make pee (urine). A kidney stone may move into other parts of the urinary tract, including: The tubes that connect the kidneys to the bladder (ureters). The bladder. The tube that carries urine out of the body (urethra). Kidney stones can cause very bad pain and can block the flow of pee. The stone usually leaves your body through your pee. A doctor may need to take out the stone. What are the causes? Kidney stones may be caused by: Too much calcium in the body. This may be caused by too much parathyroid hormone in the blood. Uric acid crystals in the bladder. The body makes uric acid when you eat certain foods. Narrowing of one or both of the ureters. A kidney blockage that you were born with. Past surgery on the kidney or the ureters. What increases the risk? You are more likely to develop this condition if: You have had a kidney stone in the past. Other people in your family have had kidney stones. You do not drink enough water. You eat a diet that is high in protein, salt (sodium), or sugar. You are very overweight (obese). What are the signs or symptoms? Symptoms of a kidney stone may include: Pain in the side of the belly, right below the ribs. Pain usually spreads to the groin. Needing to pee often or right away. Pain when peeing. Blood in your pee. Feeling like you may vomit (nauseous). Vomiting. Fever and chills. How is this treated? Treatment depends on the size, location, and makeup of the kidney stones. The stones will often pass out of the body when you pee. You may need to: Drink more fluid to help pass the stone. ?In some cases, you may be given fluids through an IV tube at the hospital. Take medicine for pain. Change your diet to help keep kidney stones from coming back. Sometimes, you may need: A procedure to break up kidney stones using a beam of light (laser) or shock waves. Surgery to remove the kidney stones. Follow these instructions at home: Medicines Take xted-vcn-jbmknsy and prescription medicines only as told by your doctor. Ask your doctor if the medicine prescribed to you requires you to avoid driving or using machinery. Eating and drinking Drink enough fluid to keep your pee pale yellow. ?You may be told to drink at least 8 10 glasses of water each day. This will help you pass the stone. If told by your doctor, change your diet. You may be told to: ?Limit how much salt you eat. ?Eat more fruits and vegetables. ?Limit how much meat, poultry, fish, and eggs you eat. Follow instructions from your doctor about what you may eat and drink. General instructions Collect pee samples as told by your doctor. You may need to collect a pee sample: ?24 hours after a stone comes out. ?8 12 weeks after a stone comes out, and every 6 12 months after that. Strain your pee every time you pee. Use the strainer that your doctor recommends. Do not throw out the stone. Keep it so that it can be tested by your doctor. Keep all follow-up visits. You may need X-rays and ultrasounds to make sure the stone has come out. How is this prevented? To prevent another kidney stone: Drink enough fluid to keep your pee pale yellow. This is the best way to prevent kidney stones. Eat healthy foods. Avoid certain foods as told by your doctor. You may be told to eat less protein. Stay at a healthy weight. Where to find more information National Kidney Foundation (NKF): kidney.org [employer] (UCF): urologyhealth.org Contact a doctor if: You have pain that gets worse or does not get better with medicine. Get help right away if: You have a fever or chills. You get very bad pain. You get new pain in your belly. You faint. You cannot pee. This information is not intended to replace advice given to you by your health care provider. Make sure you discuss any questions you have with your health care provider. Document Revised: 06/09/2023 Document Reviewed: 06/09/2023 [employer] Patient Education 2023 [place]. Follow Up Care 07/30/2024 08:12:34 With:HANNAH CHACON Address: [address] [place] [address]- [phone] Business (1) When: Unknown Comments:Call for followup appointment [facility] 10-01-2024 NoteProgress Note-Physician Patient: CHELSEA CURRY Age: 79 years Sex: Female : 1945 Associated Diagnoses: None Author: Jraon Brandon MD Postoperative Information Postoperative disposition: Postoperative disposition: To PACU. Optimetrix number: Optimetrix number [id number]. Anesthetic utilized: General. Health Status Allergies: Allergic Reactions (Selected) Severity Not Documented Codeine- Nausea. Demerol- Hyper. Iodinated radiocontrast dyes- Nausea. Ketek- Unknown. Nubain- Rash. Penicillins- Rash. Phenergan- Hives. Pyridium- Nausea. Sulfa drugs- Rash. Tobramycin- Nausea. Nonallergic Reactions (Selected) Severity Not Documented Ciprofloxacin- Unknown. Meperidine- Unknown. Moxifloxacin- Unknown. Potassium citrate- Unknown. Promethazine- Aof. Protamine- Unknown. Shellfish- Unknown. Telithromycin- Unknown. Physical Examination Vital Signs 07/30/2024 14:42 EDT Heart Rate Monitored 65 bpm SpO2 97 % 07/30/2024 14:42 EDT Systolic Blood Pressure 156 mmHg HI Diastolic Blood Pressure 63 mmHg Mean Arterial Pressure, Monitered 94 mmHg 07/30/2024 14:41 EDT Respiratory Rate 18 br/min 07/30/2024 14:03 EDT Heart Rate Monitored 70 bpm SpO2 96 % 07/30/2024 14:03 EDT Systolic Blood Pressure 132 mmHg Diastolic Blood Pressure 55 mmHg LOW Mean Arterial Pressure, Monitered 81 mmHg 07/30/2024 14:03 EDT Respiratory Rate 18 br/min 07/30/2024 14:00 EDT SpO2 97 % 07/30/2024 13:52 EDT Temperature Temporal Artery 36.7 DegC Heart Rate Monitored 68 bpm Respiratory Rate Monitored 12 br/min Systolic Blood Pressure 146 mmHg HI Diastolic Blood Pressure 58 mmHg LOW Blood Pressure Location Left arm Mean Arterial Pressure, Cuff 87 mmHg SpO2 96 % Pain Assessment: Controlled. General: Awake, Appropriate. Respiratory: Adequate air exchange. Cardiovascular: Stable. Neurological Assessment Anesthetic outcome No anesthetic complications noted. Adequate pain relief. Review / Management Condition: Stable. Plan Transfer/Discharge: Transfer/Discharge Discharge when meets criteria ( To home ).[facility]:Result Comment: Electronically Signed By: Jaron Brandon MD\.br\Date and Time Signed: 07/30/24 15:13 EDT 10-01-2024 NoteProgress Note-Physician Patient: CHELSEA CURRY Age: 79 years Sex: Female : 1945 Associated Diagnoses: None Author: Jaron Brandon MD Preoperative Information Anesthesia Preop Info: Time patient last ate or drank 07/30/2024 00:00:00. Anesthesia history: Patient history: N/V with anesthesia. Family history+: None. Informed consent: Signed by patient. Re-evaluation prior to induction: Initial evaluation reviewed: No significant change. Review of Systems Eye Ear/Nose/Mouth/Throat Respiratory: No shortness of breath, No cough. Cardiovascular: Negative, No chest pain. Gastrointestinal: Nausea, Vomiting, vomiting one hour ago. Musculoskeletal Neurologic Health Status Allergies: Allergic Reactions (Selected) Severity Not Documented Codeine- Nausea. Demerol- Hyper. Iodinated radiocontrast dyes- Nausea. Ketek- Unknown. Nubain- Rash. Penicillins- Rash. Phenergan- Hives. Pyridium- Nausea. Sulfa drugs- Rash. Tobramycin- Nausea. Nonallergic Reactions (Selected) Severity Not Documented Ciprofloxacin- Unknown. Meperidine- Unknown. Moxifloxacin- Unknown. Potassium citrate- Unknown. Promethazine- Aof. Protamine- Unknown. Shellfish- Unknown. Telithromycin- Unknown., Allergies (18) Active Severity Reaction codeine Nausea Demerol hyper iodinated radiocontrast dyes Nausea Nubain rash penicillins rash Phenergan hives Pyridium Nausea sulfa drugs Rash tobramycin Nausea ciprofloxacin Unknown meperidine Unknown moxifloxacin Unknown potassium citrate Unknown promethazine AOF protamine Unknown shellfish Unknown telithromycin Unknown Ketek Unknown Current medications: (Selected) Inpatient Medications Ordered Lactated Ringers IV Dana 1000 mL 1,000 mL: 1,000 mL, IV, 100 mL/hr, Routine, Start date 07/30/24 15:09:00 EDT, 10 hour(s), Total volume (mL): 1,000, 65.9 kg, 1.74, m2 Lactated Ringers IV Dana 1000 mL 1,000 mL: 1,000 mL, IV, 150 mL/hr, Routine, Start date 07/30/24 11:31:00 EDT, 6.7 hour(s), Total volume (mL): 1,000, 65.9 kg, 1.74, m2 cephalexin 500 mg Cap: 500 mg = 1 cap(s), Cap, Oral, BID, Routine, Start date 07/30/24 21:00:00 EDT Prescriptions Prescribed Align 4 mg oral capsule: 4 mg = 1 cap(s), Oral, Daily, # 28 cap(s), Refills(s) 4, [id number], 162, cm, 04/18/24 9:43:00 EDT, Height/Length Dosing, 66, kg, 04/18/24 9:43:00 EDT, Weight Dosing Linzess 145 mcg oral capsule: 145 mcg = 1 cap(s), Oral, Daily, # 30 cap(s), Refills(s) 4, [id number], 165, cm, 07/24/24 12:20:00 EDT, Height/Length Dosing, 64, kg, 07/24/24 12:20:00EDT, Weight Dosing Pantoprazole [address] Tab: 40 mg = 1 tab(s), Oral, Daily, X 90 day(s), # 90 tab(s), Refills(s) 2, Pharmacy: [facility], 162.5, cm, 01/17/24 14:37:00 EDT, Height/Length Dosing, 67, kg, 01/17/24 14:37:00 EDT, Weight Dosing clobetasol propionate 0.05% top oint: See Instructions, 30 gm, Refill(s) 2, Apply to affected area every 12 hours as needed for pain/discomfort., [id number], 165, cm, 12/12/22 13:46:00 EST,Height/Length Dosing, 70.4, kg, 12/12/22 13:46:00 EST, Weight Dosing trospium 20 mg oral tablet: 20 mg = 1 tab(s), Oral, Daily, take in morning on an empty stomach, X 30 day(s), # 30 tab(s), Refills(s) 11, [id number], 165, cm, 06/11/24 13:43:00 EDT, Height/Length Dosing, 68.5, kg, 06/11/24 13:43:00 EDT, Weight Dosing Documented Medications Documented PreserVision AREDS: See Instructions, Refill(s) 0, Prophylaxis Rybelsus 14 mg oral tablet: mg tab(s), Oral, Daily, Refills(s) 0 Vitamin D3: 50 mcg, Oral, Daily, Refills(s) [...] Oral Monday, Monday, Monday, Refills(s) 0, High cholesterol, Home Medications (16) Active Align 4 mg oral capsule 4 mg = 1 cap(s), Oral, Daily citalopram 10 mg, Oral, Daily clobetasol propionate 0.05% top oint See Instructions glimepiride 4 mg Tab 4 mg = 1 tab(s), Oral, Daily hydrochlorothiazide 25 mg Tab 25 mg = 1 tab(s), Oral, Daily levothyroxine 88 mcg, Oral, Daily Linzess 145 mcg oral capsule 145 mcg = 1 cap(s), Oral, Daily mirtazapine 15 mg, Oral, Once a day (at bedtime) Pantoprazole [address] Tab 40 mg = 1 tab(s), Oral, Daily pioglitazone 15 mg Tab 15 mg = 1 tab(s), Oral, Daily PreserVision AREDS See Instructions Rybelsus 14 mg oral tablet , Oral, Daily simvastatin See Instructio (more content not included)...[facility]Result Comment: Electronically Signed By: Jaron Brandon MD\.br\Date and Time Signed: 07/30/24 15:12 [id number] Evaluation + Plan note Extracted from: Title:ANES Post-operative Note---General Author: Jaron Brandon MD Date:07/30/24 Plan Transfer/Discharge: Transfer/Discharge Discharge when meets criteria ( To home ). Extracted from: Title:ANES Pre-operative Note 2022 Author:Jaron Pizano Date:07/30/24 Plan [place] [employer]esthesiologists (ASA) physical status classification: Class III. Anesthetic Preoperative Plan: Anesthesia General, and ETT/RSI. Extracted from: Title:Kidney Stone Admission H&P * Author:HANNAH DICKERSON MD Date:07/30/24 Impression and Plan #1. Left-sided flank pain CT abdomen pelvis shows a 7 mm proximal ureteral stone, patient's pain is not relieved despite multiple pain medications. Thus, we will proceed to the OR for cystoscopy, left retrograde pyelogram, left ureteral stent placement. Consent will be obtained at the bedside. Extracted from: Title:ED Note Author:Kevin Mann PA-C te:07/30/24 1. Ureterolithiasis (N20.1: Calculus of ureter) Orders: ceftriaxone + Sodium Chloride 0.9% intravenous solution 50 mL, 1,000 mg = 1 EA, IV Piggyback, Once, Stop date 07/30/24 10:17:00 EDT, STAT, Start date 07/30/24 10:17:00 EDT, 100 mL/hr, Infuse over 30 minute(s), 07/30/24 10:17:00 EDT morphine, 2 mg = 1 mL, Injection, IV Push, Once, Stop date 07/30/24 8:19:00 EDT, STAT, Start date 07/30/24 8:19:00 EDT, 07/30/24 8:19:00 EDT morphine, 2 mg = 1 mL, Injection, IV Push, Once, Stop date 07/30/24 10:11:00 EDT, STAT, Start date 07/30/24 10:11:00 EDT, 07/30/24 10:11:00 EDT ondansetron, 4 mg = 2 mL, Injection, IV Push, Once, Stop date 07/30/24 8:19:00 EDT, STAT, Start date 07/30/24 8:19:00 EDT, 07/30/24 8:19:00 EDT Sodium Chloride 0.9% intravenous solution, 1,000 mL, Soln-IV, IV, Once, Stop date 07/30/24 8:19:00 EDT, STAT, Start date 07/30/24 8:19:00 EDT, Infuse over 61, minute(s) tamsulosin, 0.4 mg = 1 cap(s), Cap, Oral, Once, Stop date 07/30/24 10:16:00 EDT, STAT, Start date 07/30/24 10:16:00 EDT, 07/30/24 10:16:00 EDT Basic Metabolic Panel CBC w/ Auto Diff CT Abdomen/Pelvis w/o Contrast ED Physician consult Hospitalist for continued care eGFR Extra Blue Tube Extra SST Tube UA with Cult Rflx Urine Culture Urine Strain Future Appointments Appointment Date:09/10/2024 02:40:00 PM Scheduled Provider:ÁNGELA JUAREZ PA-C Location:[facility] Appointment Type:URO Office Visit Diagnostic Tests Pending * Urine Culture 07/30/24 Future Scheduled Tests Laboratory* Fecal WBC Lactoferrin 01/17/24 * Giardia lamblia, Direct Detection EIA 01/17/24 * O & P Exam, Routine 01/17/24 * Clostridium Difficile PCR 01/17/24 * Enteric Panel by PCR 01/17/24 [facility] 10-01-2024 NotePatient Education - Text [facility] [place], [place] Dr. Juan Alberto Moe Post-operative Instructions for Ureteroscopy, Laser Lithotripsy, Stone Extraction and Stent Placement There are no incisions or dressings to be concerned with, as the procedure was performed inside theurinary system. For 24 hours after surgery: ? No driving or operating machinery ? Do not make important decisions ? Do not consume alcohol, sleeping pills Stent Placement You may have a stent which spans the distance between your bladder and your kidney, allowing urine to pass through. It prevents blockage from swelling, kidney stones in ureter (tube connecting the kidney to the bladder), or scars. The presence of the stent may cause: ? Back or side pain, especially with urination ? Frequent or urgent urination ? Bladder pressure or pain ? Blood in urine You may pass stone debris or small blood clots, which is expected. Drinking plenty of water to dilute the urine may help. If there is a thread coming out of urinary channel, be careful not to accidently pull on this, as it is attached to the stent. The stent will most likely be removed in the office during a short procedure in which a scope is placed into the bladder, the stent is grasped and removed. At other times the stent may need to stay longer, either in preparation for other procedures or for other reasons. If it is to remain intermediate teacher, however, changes of the stent are required (about every 3-4 months). Diet You may resume your normal diet, but you may want to start slowly and avoid spicy food, caffeine, carbonated beverages and alcohol, especially if you have a stent. Your diet and fluid intake may makeirritation from the stent worse. Activity You may resume your normal activities, although you should take it easy on the day of the procedure. Minimizing activity may decrease the back discomfort and irritation from the stent, if present. Medications ? You may resume your home medications unless instructed otherwise. ? Hold aspirin, ibuprofen, Coumadin (warfarin) and other blood thinners until your office visit (wewill discuss when to resume these medications) ? Take your prescribed medications as directed, including your antibiotics. You may also be given aprescription for pain medicine or medicines to help with the bladder irritation from stent, if present. Things to watch for which would require an Emergency Room Visit (or call 911) (This is not a complete list) ? Fever over 101.5 degrees, with or without chills ? Severe bleeding ? Severe drug reactions with itching, hives, rash, or severe flank pain ? Tenderness or swelling or the calves, chest pain, or shortness of breath Please call the office to arrange for your post-operative appointment (with XRAY) [phone] Urology Kidney Stones Kidney stones are rock-like masses that form inside of the kidneys. Kidneys are organs that make pee (urine). A kidney stone may move into other parts of the urinary tract, including: ? The tubes that connect the kidneys to the bladder (ureters). ? The bladder. ? The tube that carries urine out of the body (urethra). Kidney stones can cause very bad pain and can block the flow of pee. The stone usually leaves your body through your pee. A doctor may need to take out the stone. What are the causes? Kidney stones may be caused by: ? Too much calcium in the body. This may be caused by too much parathyroid hormone in the blood. ? Uric acid crystals in the bladder. The body makes uric acid when you eat certain foods. ? Narrowing of one or both of the ureters. ? A kidney blockage that you were born with. ? Past surgery on the kidney or the ureters. What increases the risk? You are more likely to develop this condition if: ? You have had a kidney stone in the past. ? Other people in your family have had kidney stones. ? You do not drink enough water. ? You eat a diet that is high in protein, salt (sodium), or sugar. ? You are very overweight (obese). What are the signs or symptoms? Symptoms of a kidney stone may include: ? Pain in the side of the belly, right below the ribs. Pain usually spreads to the groin. ? Needing to pee often or right away. ? Pain when peeing. ? Blood in your pee. ? Feeling like you may vomit (nauseous). ? Vomiting. ? Fever and chills. How is this treated? Treatment depends on the size, location, and makeup of the kidney stones. The stones will often pass out of the body when you pee. You may need to: ? Drink more fluid to help pass the stone. ? In some cases, you may be given fluids through an IV tube at the hospital. ? Take medicine for pain. ? Change your diet to help keep kidney stones from coming back. Sometimes, you may need: ? A procedure to break up kidney s (more content not included)...[facility] NoteConsultation Note Patient: CHELSEA CURRY Age: 79 years Sex: Female : 1945 Associated Diagnoses: None Author: ANA SILVER, [facility] Basic Information Source of history: Self. Referral source: Self. History limitation: None. Chief Complaint 07/30/2024 8:14 EDT Lt flank pain started yesterday with dark urine, hx kidney stones. n/v. History of Present Illness Patient is a 79-year-old female with prior history of nephrolithiasis presenting with left-sided flank pain of 1 day duration. Pain is sharp, radiating down to the groin with no alleviating or exacerbating factors. Of note, patient does have extensive history of nephrolithiasis and has undergone multiple shockwave lithotripsies, ureteroscopy's. She states that she has previously not been able to pass stones. She denies any fevers, chills but has been having intermittent nausea and emesis. On admission, creatinine 1.2, no leukocytosis, UA shows positive leukocyte Estrace, slight pyuria, negative nitrites. CT abdomen pelvis done showed a 7 mm proximal ureteral stone with mild left-sided hydronephrosis. Review of Systems Constitutional: Negative except as documented in history of present illness. Eye: Negative. Ear/Nose/Mouth/Throat: Negative. Respiratory: Negative. Cardiovascular: Negative. Gastrointestinal: Negative. Genitourinary: Negative. Hematology/Lymphatics: Negative. Endocrine: Negative. Immunologic: Negative. Musculoskeletal: Negative. Integumentary: Negative. Neurologic: Negative. Psychiatric: Negative. Health Status Allergies: Allergic Reactions (All) Severity Not Documented Codeine- Nausea. Demerol- Hyper. Iodinated radiocontrast dyes- Nausea. Ketek- Unknown. Nubain- Rash. Penicillins- Rash. Phenergan- Hives. Pyridium- Nausea. Sulfa drugs- Rash. Tobramycin- Nausea. Nonallergic Reactions (All) Severity Not Documented Ciprofloxacin- Unknown. Meperidine- Unknown. Moxifloxacin- Unknown. Potassium citrate- Unknown. Promethazine- Aof. Protamine- Unknown. Shellfish- Unknown. Telithromycin- Unknown. Canceled/Inactive Reactions (All) Severity Not Documented TraMADol- Unknown. Problem list: All Problems Abdominal tenderness / SNOMED CT 38425433 / Confirmed Mejia's esophagus / SNOMED CT 847189786 / Confirmed Chronic cystitis / SNOMED CT 92410722 / Confirmed Chronic diarrhea / SNOMED CT 930466381 / Confirmed Constipation by outlet dysfunction / SNOMED CT 94698285 / Confirmed Renal cyst / SNOMED CT 8206546443 / Confirmed Urinary hesitancy / SNOMED CT 207989172 / Confirmed Diabetes / SNOMED CT 823177614 / Confirmed Anticoagulated / SNOMED CT 663098106 / Confirmed Dysphagia / SNOMED CT 02519479 / Confirmed Abdominal cramping / SNOMED CT 528680350 / Confirmed Gross hematuria / SNOMED CT 595632650 / Confirmed Acid reflux / SNOMED CT 556617616 / Confirmed Glucosuria / SNOMED CT 37706537 / Confirmed H/O blood clots / SNOMED CT 959779481 / Confirmed S/P cholecystectomy / SNOMED CT 5969159350 / Confirmed History of colon polyps / SNOMED CT 7566918302 / Confirmed Hyperlipidemia / SNOMED CT 61417525 / Confirmed Hypertension / SNOMED CT 8927696368 / Confirmed Hypothyroidism / SNOMED CT 65356762 / Confirmed 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 Mixed incontinence / SNOMED CT 46843237 / Confirmed Fecal incontinence / SNOMED CT 034909580 / Confirmed Stool incontinence / SNOMED CT 520035680 / Confirmed Urinary incontinence without sensory awareness / SNOMED CT 2658443910 / Confirmed Urinary frequency / SNOMED CT 076894762 / Confirmed Kidney stones / SNOMED CT 327733355 / Confirmed Lipoma of stomach / SNOMED CT 0374694271 / Confirmed Schatzki's ring / SNOMED CT 481627485 / Confirmed Nocturia / SNOMED CT 778729437 / Confirmed Osteoarthritis / SNOMED CT 6247516319 / Confirmed Pyelonephritis / SNOMED CT 72240596 / Confirmed Smoker / SNOMED CT 496585666 / Confirmed Added secondary to documentation in Social History. Unintentional weight loss / SNOMED CT 5911615715 / Confirmed Other urethral stricture, female / SNOMED CT 992466640 / Confirmed Urge incontinence / SNOMED CT 808137675 / Confirmed Urinary urgency / SNOMED CT 433291429 / Confirmed Urinary incontinence / SNOMED CT 0272475484 / Confirmed UTI (urinary tract infection) / SNOMED CT 238517320 / Confirmed Histories Procedure history: Esophagogastroduodenoscopy ([id number]) on 01/30/2024 at 78 Years. Colonoscopy ([id number]) on 01/30/2024 at 78 Years. Colonoscopy ([id number]) on 01/13/2017 at 71 Years. Cystoscopy ([id number]) on 04/27/2016 at 70 Years. Cystoscopic removal of ureteric stent ([id number]) on 04/20/2012 at 66 Years. Cystoscopic insertion of ureteric stent ([id number]) on 04/06/2012 at 66 Years. ESWL- Right ([id number]) on 04/01/2012 at 66 Years. Cysto/ BL RG ([id number]) on 09/29/2010 at 65 Years. ESWL- Right ([id number]) on 12/31/2009 at 64 (more content not included)...[facility]:Result Comment: Electronically Signed By: ANA SILVER, HANNAH\.br\Date and Time Signed: 07/30/24 12:28 EDT 06-11-2024 Hospital Discharge instructions Patient Education 06/11/2024 14:08:33 Overactive Bladder, Adult Overactive Bladder, Adult Overactive bladder is a condition in which a person has a sudden and frequent need to urinate. A person might also leak urine if he or she cannot get to the bathroom fast enough (urinary incontinence). Sometimes, symptoms can interfere with work or social activities. What are the causes? Overactive bladder is associated with poor nerve signals between your bladder and your brain. Your bladder may get the signal to empty before it is full. You may also have very sensitive muscles thatmake your bladder squeeze too soon. This condition may also be caused by other factors, such as: Medical conditions: ?Urinary tract infection. ?Infection of nearby tissues. ?Prostate enlargement. ?Bladder stones, inflammation, or tumors. ?Diabetes. ?Muscle or nerve weakness, especially from these conditions: ?A spinal cord injury. ?Stroke. ?Multiple sclerosis. ?Parkinson's disease. Other causes: ?Surgery on the uterus or urethra. ?Drinking too much caffeine or alcohol. ?Certain medicines, especially those that eliminate extra fluid in the body (diuretics). ?Constipation. What increases the risk? You may be at greater risk for overactive bladder if you: Are an older adult. Smoke. Are going through menopause. Have prostate problems. Have a neurological disease, such as stroke, dementia, Parkinson's disease, or multiple sclerosis (MS). Eat or drink alcohol, spicy food, caffeine, and other things that irritate the bladder. Are overweight or obese. What are the signs or symptoms? Symptoms of this condition include a sudden, strong urge to urinate. Other symptoms include: Leaking urine. Urinating 8 or more times a day. Waking up to urinate 2 or more times overnight. How is this diagnosed? This condition may be diagnosed based on: Your symptoms and medical history. A physical exam. Blood or urine tests to check for possible causes, such as infection. You may also need to see a health care provider who specializes in urinary tract problems. This is called a urologist. How is this treated? Treatment for overactive bladder depends on the cause of your condition and whether it is mild or severe. Treatment may include: Bladder training, such as: ?Learning to control the urge to urinate by following a schedule to urinate at regular intervals. ?Doing Kegel exercises to strengthen the pelvic floor muscles that support your bladder. Special devices, such as: ?Biofeedback. This uses sensors to help you become aware of your body's signals. ?Electrical stimulation. This uses electrodes placed inside the body (implanted) or outside the body. These electrodes send gentle pulses of electricity to strengthen the nerves or muscles that control the bladder. ?Women may use a plastic device, called a pessary, that fits into the vagina and supports the bladder. Medicines, such as: ?Antibiotics to treat bladder infection. ?Antispasmodics to stop the bladder from releasing urine at the wrong time. ?Tricyclic antidepressants to relax bladder muscles. ?Injections of botulinum toxin type A directly into the bladder tissue to relax bladder muscles. Surgery, such as: ?A device may be implanted to help manage the nerve signals that control urination. ?An electrode may be implanted to stimulate electrical signals in the bladder. ?A procedure may be done to change the shape of the bladder. This is done only in very severe cases. Follow these instructions at home: Eating and drinking Make diet or lifestyle changes recommended by your health care provider. These may include: ?Drinking fluids throughout the day and not only with meals. ?Cutting down on caffeine or alcohol. ?Eating a healthy and balanced diet to prevent constipation. This may include: ?Choosing foods that are high in fiber, such as beans, whole grains, and fresh fruits and vegetables. ?Limiting foods that are high in fat and processed sugars, such as fried and sweet foods. Lifestyle Lose weight if needed. Do not use any products that contain nicotine or tobacco. These include cigarettes, chewing tobacco, and vaping devices, such as e-cigarettes. If you need help quitting, ask your health care provider. General instructions Take ijfq-vug-oqvjsxd and prescription medicines only as told by your health care provider. If you were prescribed an antibiotic medicine, take it as told by your health care provider. Do notstop taking the antibiotic even if you start to feel better. Use any implants or pessary as told by your health care provider. If needed, wear pads to absorb urine leakage. Keep a log to track how much and when you drink, and when you need to urinate. This will help your health care provider monitor your condition. Keep all follow-up visits. This is important. Contact a health care provider if: You have a fever or chills. Your symptoms do not get better with treatment. Your pain and discomfort get worse. You have more frequent urges to urinate. Get help right away if: You are not able to control your bladder. Summary Overactive bladder refers to a condition in which a person has a sudden and frequent need to urinate. Several conditions may lead to an overactive bladder. Treatment for overactive bladder depends on the cause and severity of your condition. Making lifestyle changes, doing Kegel exercises, keeping a log, and taking medicines can help with this condition. This information is not intended to replace advice given to you by your health care provider. Make sure you discuss any questions you have with your health care provider. Document Revised: 07/05/2021 Document Reviewed: 07/05/2021 [employer] Patient Education 2022 [place]. 06/11/2024 14:00:37 Hematuria, Adult Hematuria, Adult Hematuria is blood in the urine. Blood may be visible in the urine, or it may be identified with a test. This condition can be caused by infections of the bladder, urethra, kidney, or prostate. Otherpossible causes include: Kidney stones. Cancer of the urinary tract. Too much calcium in the urine. Conditions that are passed from parent to child (inherited conditions). Exercise that requires a lot of energy. Infections can usually be treated with medicine, and a kidney stone usually will pass through your urine. If neither of these is the cause of your hematuria, more tests may be needed to identify the cause of your symptoms. It is very important to tell your health care provider about any blood in your urine, even if it ispainless or the blood stops without treatment. Blood in the urine, when it happens and then stops and then happens again, can be a symptom of a very serious condition, including cancer. There is no pain in the initial stages of many urinary cancers. Follow these instructions at home: Medicines Take qlvv-oir-uzwwbpe and prescription medicines only as told by your health care provider. If you were prescribed an antibiotic medicine, take it as told by your health care provider. Do notstop taking the antibiotic even if you start to feel better. Eating and drinking Drink enough fluid to keep your urine pale yellow. It is recommended that you drink 3 4 quarts (2.83.8 L) a day. If you have been diagnosed with an infection, drinking cranberry juice in addition tolarge amounts of water is recommended. Avoid caffeine, tea, and carbonated beverages. These tend to irritate the bladder. Avoid alcohol because it may irritate the prostate (in males). General instructions If you have been diagnosed with a kidney stone, follow your health care provider's instructions about straining your urine to catch the stone. Empty your bladder often. Avoid holding urine for long periods of time. If you are female: ?After a bowel movement, wipe from front to back and use each piece of toilet paper only once. ?Empty your bladder before and after sex. Pay attention to any changes in your symptoms. Tell your health care provider about any changes or any new symptoms. It is up to you to get the results of any tests. Ask your health care provider, or the department that is doing the test, when your results will be ready. Keep all follow-up visits. This is important. Contact a health care provider if: You develop back pain. You have a fever or chills. You have nausea or vomiting. Your symptoms do not improve after 3 days. Your symptoms get worse. Get help right away if: You develop severe vomiting and are unable to take medicine without vomiting. You develop severe pain in your back or abdomen even though you are taking medicine. You pass a large amount of blood in your urine. You pass blood clots in your urine. You feel very weak or like you might faint. You faint. Summary Hematuria is blood in the urine. It has many possible causes. It is very important that you tell your health care provider about any blood in your urine, even ifit is painless or the blood stops without treatment. Take pbfy-hdm-vmvgfuo and prescription medicines only as told by your health care provider. Drink enough fluid to keep your urine pale yellow. This information is not intended to replace advice given to you by your health care provider. Make sure you discuss any questions you have with your health care provider. Document Revised: 06/16/2021 Document Reviewed: 06/16/2021 [employer] Patient Education 2022 [place]. Follow Up Care 05/21/2024 11:12:17 With:DEBBIE HERNANDEZ, ÁNGELA Barrios, URL Address: [address] [facility] [place] [phone] When: Unknown [facility] 08-13-2024 NotePatient Education Obstetrics and Gynecology Overactive Bladder, Adult Overactive bladder is a condition in which a person has a sudden and frequent need to urinate. A person might also leak urine if he or she cannot get to the bathroom fast enough (urinary incontinence). Sometimes, symptoms can interfere with work or social activities. What are the causes? Overactive bladder is associated with poor nerve signals between your bladder and your brain. Your bladder may get the signal to empty before it is full. You may also have very sensitive muscles thatmake your bladder squeeze too soon. This condition may also be caused by other factors, such as: ? Medical conditions: ? Urinary tract infection. ? Infection of nearby tissues. ? Prostate enlargement. ? Bladder stones, inflammation, or tumors. ? Diabetes. ? Muscle or nerve weakness, especially from these conditions: ? A spinal cord injury. ? Stroke. ? Multiple sclerosis. ? Parkinson's disease. ? Other causes: ? Surgery on the uterus or urethra. ? Drinking too much caffeine or alcohol. ? Certain medicines, especially those that eliminate extra fluid in the body (diuretics). ? Constipation. What increases the risk? You may be at greater risk for overactive bladder if you: ? Are an older adult. ? Smoke. ? Are going through menopause. ? Have prostate problems. ? Have a neurological disease, such as stroke, dementia, Parkinson's disease, or multiple sclerosis(MS). ? Eat or drink alcohol, spicy food, caffeine, and other things that irritate the bladder. ? Are overweight or obese. What are the signs or symptoms? Symptoms of this condition include a sudden, strong urge to urinate. Other symptoms include: ? Leaking urine. ? Urinating 8 or more times a day. ? Waking up to urinate 2 or more times overnight. How is this diagnosed? This condition may be diagnosed based on: ? Your symptoms and medical history. ? A physical exam. ? Blood or urine tests to check for possible causes, such as infection. You may also need to see a health care provider who specializes in urinary tract problems. This is called a urologist. How is this treated? Treatment for overactive bladder depends on the cause of your condition and whether it is mild or severe. Treatment may include: ? Bladder training, such as: ? Learning to control the urge to urinate by following a schedule to urinate at regular intervals. ? Doing Kegel exercises to strengthen the pelvic floor muscles that support your bladder. ? Special devices, such as: ? Biofeedback. This uses sensors to help you become aware of your body's signals. ? Electrical stimulation. This uses electrodes placed inside the body (implanted) or outside the body. These electrodes send gentle pulses of electricity to strengthen the nerves or muscles that control the bladder. ? Women may use a plastic device, called a pessary, that fits into the vagina and supports the bladder. ? Medicines, such as: ? Antibiotics to treat bladder infection. ? Antispasmodics to stop the bladder from releasing urine at the wrong time. ? Tricyclic antidepressants to relax bladder muscles. ? Injections of botulinum toxin type A directly into the bladder tissue to relax bladder muscles. ? Surgery, such as: ? A device may be implanted to help manage the nerve signals that control urination. ? An electrode may be implanted to stimulate electrical signals in the bladder. ? A procedure may be done to change the shape of the bladder. This is done only in very severe cases. Follow these instructions at home: Eating and drinking ? Make diet or lifestyle changes recommended by your health care provider. These may include: ? Drinking fluids throughout the day and not only with meals. ? Cutting down on caffeine or alcohol. ? Eating a healthy and balanced diet to prevent constipation. This may include: ? Choosing foods that are high in fiber, such as beans, whole grains, and fresh fruits and vegetables. ? Limiting foods that are high in fat and processed sugars, such as fried and sweet foods. Lifestyle ? Lose weight if needed. ? Do not use any products that contain nicotine or tobacco. These include cigarettes, chewing tobacco, and vaping devices, such as e-cigarettes. If you need help quitting, ask your health care provider. General instructions ? Take bjqs-kyi-bbnlmpp and prescription medicines only as told by your health care provider. ? If you were prescribed an antibiotic medicine, take it as told by your health care provider. Do not stop taking the antibiotic even if you start to feel better. ? Use any implants or pessary as told by your health care provider. ? If needed, wear pads to absorb urine leakage. ? Keep a log to track how much and when you drink, and when you need to urinate. This will help your health care (more content not included)...[facility]04-29-2024 NotePatient: Chelsea Curry Procedure Summary Date: 02/23/24 Room / Location: [facility] [place] [facility] Anesthesia Start: 1216 Anesthesia Stop: 1313 Procedures: EGD ENDOSCOPIC ULTRASOUND (UPPER) Diagnosis: Gastric [...] PACU per anesthesia protocol. No notable events documented.[facility]04-29-2024 Note Patient: Chelsea Curry Procedure Information Anesthesia Start Date/Time: 02/23/24 1216 Scheduled providers: Diana Ring MD; Ashanti Hays MD; AUDRA Motta Procedures: EGD ENDOSCOPIC ULTRASOUND (UPPER) Location: [facility] Endoscopy Relevant Problems No relevant active problems [...] products. Plan discussed with CAA. Additional Equipment [facility] Note Patient: Chelsea Curry Procedure Summary Date: 02/23/24 Room / Location: [facility] Endoscopy Anesthesia Start: 1215 Anesthesia Stop: Procedures: EGD ENDOSCOPIC ULTRASOUND (UPPER) Diagnosis: Gastric lesion Scheduled Providers: Diana Ring MD; Ashanti Hays MD; AUDRA Motta Responsible Provider: Ashanti Hays MD Anesthesia Type: general ASA Status: Not recorded Anesthesia Post Transport Note Transport to: [facility] PAC[facility] O2 Route: room air Patient Monitor: direct observation Transport: uneventful Patient condition is: [facility]McC[facility] Note Airway Date/Time: 02/23/2024 12:25 PM Urgency: elective Airway not difficult General Information and Staff Patient location during procedure: OR Anesthesiologist: Ashanti Hays MD Resident/ESTHER/CAA: AUDRA Motta Performed: resident/IMAGING ACCOUNT MANAGER/AUDRA Indications and Patient Condition Indications for airway [...] approach: 1 Number of other approaches attempted: 0[facility] 02-16-2024 NoteMedications to take AM day of procedure with sips water only: LEVOTHYROXINE PROTONIX Medication Hold instructions: NSAIDs (Motrin,Aleve): 5 days prior to procedure Vitamins/Supplements: 5 days prior to procedure IF YOU ARE GOING HOME AFTER YOUR SURGERY OR PROCEDURE, FOR YOUR SAFETY, YOUR SURGERY WILL BE CANCELLED IF BOTH OF THE FOLLOWING ARE NOT AVAILABLE: 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 Do not wear perfume, make-up, nail greenlandic, or lotions on the day of your [...] need to make any changes, please call [phone]. Notify your surgeon if you develop any illness such as a cold, cough, fever, sore throat or vomiting between now and your surgery. Thank you for entrusting us with your care. [facility] Surgical Services [facility]04-03-2024 Note [id number] Discharge instructions Patient Education 01/30/2024 09:45:19 Colonoscopy, Care After Surgery [facility] (CUSTOM) Colonoscopy Care After Surgery Please read the instructions outlined below and refer to this sheet in the next few weeks. These discharge instructions provide you with general information on caring for yourself after you leave thehospital. Your doctor may also give you specific [...] Heavy or fried foods are harder to digestand may make you feel nauseated (sick to [...] worse throughout the day. 01/30/2024 09:45:16 Hemorrhoids, Ijqf-hs-Rzmx Hemorrhoids Hemorrhoids are swollen veins that may [...] 3 4 times a day. You may dothis in a bathtub or using a portable sitz bath that fits over the toilet. If told, put ice on the painful area. It may be helpful to use ice between your warm baths. ?Put ice in a plastic bag. ?Place a towel between your skin and the bag. ?Leave the ice on for 20 minutes, 2 3 times a day. General instructions Take bzhw-tsc-anacmdk and prescription medicines only as told by [...] provider. Document Revised: 04/27/2022 Document Reviewed: 04/27/2022 [employer] Patient Education 2022 [employer]. 01/30/2024 09:45:12 Colon Polyps Colon Polyps Colon polyps are tissue growths inside the colon, which is part of the large intestine. They are one of the types of polyps that can grow in the body. A polyp may be a round bump or a mushroom-shapedgrowth. You could have one polyp or more [...] smoking cigarettes, drinking too much alcohol, not gettingenough exercise, and eating a diet that is [...] contain nicotine or tobacco, such as cigarettes, e- cigarettes, and chewing tobacco. If you need help [...] hard liquor (44 mL). General instructions Take czum-ttf-thyswfq and prescription medicines only as told by [...] provider. Document Revised: 02/03/2021 Document Reviewed: 02/03/2021 [employer] Patient Education 2022 [place]. 01/30/2024 09:45:06 Endoscopy, Care After Procedure [facility] Endoscopy Care After Procedure Please read the instructions outlined below and refer to this sheet in the next few weeks. These discharge instructions provide you with general information on caring for [facility] Your doctor may also give you [...] blood. Document Released: 05/30/2005 Document Re-Released: 04/09/2007 [employer] Patient Information 2010 [employer]. 01/30/2024 09:44:56 Duodenitis Duodenitis Duodenitis is inflammation of the lining of the first part of the small intestine (duodenum). It iscommonly caused by an infection from bacteria, which [...] (barium) that makes your digestive tract easier tosee. Endoscopy. This is an exam of the [...] Follow these instructions at home: Medicines Take luww-vhh-aodcdsl and prescription medicines only as told by your health care provider. If you were prescribed an antibiotic medicine, take it as told by your health care provider. Do notstop taking the antibiotic even if you start to feel better. Eating and drinking Eat small, frequent meals. Do not drink alcohol. Drink enough water to keep your urine pale yellow. Follow instructions from your health care provider about eating or drinking restrictions. You may be asked to avoid: ?Caffeinated drinks. ?Chocolate. ?Peppermint or mint-flavored food or drinks. ?Garlic or onions. ?Spicy foods. ?[place] fruits. ?Tomato-based foods. ?Fatty or fried foods. [...] of the small intestine. This part of thesmall intestine is called the duodenum. Duodenitis may develop suddenly and last for a short time (acute), or it may develop gradually and last longer (chronic). The most common cause of duodenitis is an infection from a type of bacteria. Take dknz-tzw-bpdvjem and prescription medicines only as told by your health care provider. This information is not intended to replace advice given to you by your health care provider. Make sure you discuss any questions you have with your health care provider. Document Revised: 04/26/2022 Document Reviewed: 04/27/2022 [employer] Patient Education 2022 [employer] 01/30/2024 09:44:51 Hiatal Hernia Hiatal Hernia A [...] may be born with a weakness in thehiatus, or a weakness can develop over time. What increases the risk? This condition is more likely to develop in: Older people. Age is a major risk factor for a hiatal hernia, especially if you are over the age of50. women. People who are overweight. People who [...] reduce GERD symptoms. Medicines. These may include: ?Obim-ioz-csgvjcr antacids. ?Medicines that make your stomach empty [...] you need help quitting, ask your health careprovider. Try to achieve and maintain a healthy [...] may include: ?Fatty foods, like fried foods. ?[place] fruits, like oranges or lemon. ?Other foods [...] Do not drink alcohol. General instructions Take wuhd-gea-ycyhtkr and prescription medicines only as told by [...] provider. Document Revised: 12/13/2022 Document Reviewed: 12/13/2022 [employer] Patient Education 2022 [employer]. Follow Up Care 01/17/2024 15:27:54 With:Mukesh SILVER, SUKH Gimenez, [facility] Address: When: Unknown Comments:Call for any problems. The office will reach out in about one week from procedure date. [facility]03-20-2024 Hospital Discharge instructions Patient Education 01/17/2024 14:29:52 [...] Follow these instructions at home: Medicines Take atmp-bcn-zutedam and prescription medicines only as told by your health care provider. If you were prescribed an antibiotic medicine, take it as told by your health care provider. Do notstop taking the antibiotic even if you start [...] and water are not available, use [employer]. Make sure that all people in your [...] and water are not available, use [employer]. This information is not intended to replace advice given to you by your health care provider. Make sure you discuss any questions you have with your health care provider. Document Revised: 01/06/2023 Document Reviewed: 04/13/2020 [employer] Patient Education 2022 [place]. Follow Up Care 01/03/2024 11:24:19 With:Dulce Holguin CNP Address: When:1 to 2 weeks Comments:Following colonoscopy. [facility] 03-20-2024 Evaluation + Plan note Future Scheduled Tests Laboratory* Fecal WBC Lactoferrin 01/17/24 * Giardia lamblia, Direct Detection EIA 01/17/24 * O & P Exam, Routine 01/17/24 * Clostridium Difficile PCR 01/17/24 * Enteric Panel by PCR 01/17/24 [facility]10-16-2023 Evaluation note* Encounter Date Diagnosis Assessment Notes Treatment Notes Treatment Clinical Notes Jul, Pulmonary embolism (ICD-10 - I26.99) [email or web address] Other 04-07-2023 NoteHISTORY: Bone density screening COMPARISON: [...] and signed by Jared Morrissey on 02/03/2023 [facility]03-14-2023 Hospital Discharge instructions Patient Education 01/10/2023 11:49:36 [...] ELDRIDGE Address: [facility] [address] [place] [address]- Business (1) When:09/12/2023 11:49:18 [facility]10-17-2022 Evaluation note* Encounter Date Diagnosis Assessment Notes Treatment Notes Treatment Clinical Notes Jul, Pulmonary embolism (ICD-10 - I26.99) [email or web address] Other 05-05-2022 NoteOPERATIVE NOTE OPERATION DATE: 03/03/2022 [...] ensuring mobility, phacoemulsification was performed in a ywsuyqu-cxl-eosxjd-type fashion. After all nuclear material had been [...] up the following day for postoperative care. [facility] Signed and Approved by: MAYURI BROWN 04/01/2022 15:27:00[facility]05-05-2022 NoteHISTORY AND PHYSICAL EXAMINATION HISTORY: Patient is [...] bilaterally. Pupils motility, muscle balance, confrontational visual oliver within normal limits bilaterally. Pressures measured at [...] and go forward with her elective procedure. [facility] Signed and Approved by: MAYURI BROWN 03/04/2022 12:13:00[facility]02-16-2021 NotePatient Outreach ([facility]) CHELSEA CURRY ([id number]) 1945 F Date Time Provider Department 12/15/20 [...] Fully Assessed Order(s):SARS-COVID VACCINE 1ST DOSE APPT [[id number]] Order #: [id number] FUTURE Prescriptions as of 12/15/2020 Sig: HYDROCHLOROTHIAZIDE [...] tablet by mouth twice * * VIT C,E,ZINC,JN-[id number]* Take by mouth. * CHOLECALCIFEROL (VITAMIN D3) [...] More... Hiatal hernia [K44.9] Encounter Status:Closed by TE GR on 12/18/20[facility] Evaluation + Plan note Future Appointments Appointment Date:09/04/2023 12:15:00 PM Scheduled Provider:Rashida ELDRIDGE MD Location:[facility] Appointment Type:URO [facility] App[facility]ments Appointment Date:01/30/2024 08:45:00 AM Scheduled Provider: Location:[facility] Appointment Type:Surgery FT Future Scheduled Tests Laboratory* Fecal WBC Lactoferrin 01/17/24 * Giardia lamblia, Direct Detection EIA 01/17/24 * O & P Exam, Routine 01/17/24 * Clostridium Difficile PCR 01/17/24 * Enteric Panel by PCR 01/17/24 [facility] Evaluation + Plan note Future Appointments Appointment Date:09/10/2024 02:40:00 PM Scheduled Provider:ÁNGELA JUAREZ PA-C Location:[facility] Appointment Type:URO Office Visit Diagnostic Tests Pending * Creatinine 06/11/24 Future Scheduled Tests Laboratory* Fecal WBC Lactoferrin 01/17/24 * Giardia lamblia, Direct Detection EIA 01/17/24 * O & P Exam, Routine 01/17/24 * Clostridium Difficile PCR 01/17/24 * Enteric Panel by PCR 01/17/24 [facility] evaluation + Plan note Future Appointments Appointment Date:09/10/2024 02:40:00 PM Scheduled Provider:ÁNGELA JUAREZ PA-C Location:[facility] Appointment Type:URO Office Visit Diagnostic Tests Pending * Urine Cytology ([facility]) 06/11/24 Future Scheduled Tests Laboratory* Fecal WBC Lactoferrin 01/17/24 * Giardia lamblia, Direct Detection EIA 01/17/24 * O & P Exam, Routine 01/17/24 * Clostridium Difficile PCR 01/17/24 * Enteric Panel by PCR 01/17/24 [facility] Evaluation + Plan note Future Appointments Appointment Date:09/10/2024 02:40:00 PM Scheduled Provider:ÁNGELA JUAREZ PA-C Location:[facility] Appointment Type:URO Office Visit Future Scheduled Tests Laboratory* Fecal WBC Lactoferrin 01/17/24 * Giardia lamblia, Direct Detection EIA 01/17/24 * O & P Exam, Routine 01/17/24 * Clostridium Difficile PCR 01/17/24 * Enteric Panel by PCR 01/17/24 [facility] Evaluation + Plan note Future Appointments Appointment Date:08/08/2024 11:00:00 AM Scheduled Provider:HANNAH CHACON MD Location:[facility] Appointment Type:URO Office Visit Appointment Date:09/10/2024 02:40:00 PM Scheduled Provider:ÁNGELA JUAREZ PA-C Location:[facility] Appointment Type:URO Office Visit Future Scheduled Tests Laboratory* Fecal WBC Lactoferrin 01/17/24 * Giardia lamblia, Direct Detection EIA 01/17/24 * O & P Exam, Routine 01/17/24 * Clostridium Difficile PCR 01/17/24 * Enteric Panel by PCR 01/17/24 [facility] evaluation + Plan note Future Appointments Appointment Date:08/09/2024 02:30:00 PM Scheduled Provider: Location:[facility] Surgical Services Appointment Type:Surgical PAT FT Appointment Date:08/15/2024 08:30:00 AM Scheduled Provider: Location:[facility] Appointment Type:Surgery FT Appointment Date:09/10/2024 02:40:00 PM Scheduled Provider:ÁNGELA JUAREZ PA-C Location:[facility] Appointment Type:URO Office Visit Future Scheduled Tests Laboratory* Fecal WBC Lactoferrin 01/17/24 * Giardia lamblia, Direct Detection EIA 01/17/24 * O & P Exam, Routine 01/17/24 * Clostridium Difficile PCR 01/17/24 * Enteric Panel by PCR 01/17/24 [facility] Evaluation + Plan note Future Appointments Appointment Date:08/15/2024 08:30:00 AM Scheduled Provider: Location:[facility] Services Appointment Type:Surgery FT Appointment Date:09/10/2024 02:40:00 PM Scheduled Provider:ÁNGELA JUAREZ PA-C Location:[facility] Appointment Type:URO Office Visit Future Scheduled Tests Laboratory* Fecal WBC Lactoferrin 01/17/24 * Giardia lamblia, Direct Detection EIA 01/17/24 * O & P Exam, Routine 01/17/24 * Clostridium Difficile PCR 01/17/24 * Enteric Panel by PCR 01/17/24 [facility] evaluation + Plan note Future Appointments Appointment Date:09/30/2024 10:00:00 AM Scheduled Provider:HANNAH CHACON MD Location:[facility] Appointment Type:URO Office Visit Future Scheduled Tests Laboratory* Fecal WBC Lactoferrin 01/17/24 * Giardia lamblia, Direct Detection EIA 01/17/24 * O & P Exam, Routine 01/17/24 * Clostridium Difficile PCR 01/17/24 * Enteric Panel by PCR 01/17/24 [facility] evaluation + Plan note Future Appointments Appointment Date:12/03/2024 11:20:00 AM Scheduled Provider:HANNAH CHACON MD Location:[facility] Appointment Type:URO Office Visit Future Scheduled Tests Laboratory* Fecal WBC Lactoferrin 01/17/24 * Giardia lamblia, Direct Detection EIA 01/17/24 * O & P Exam, Routine 01/17/24 * Clostridium Difficile PCR 01/17/24 * Enteric Panel by PCR 01/17/24 [facility] evaluation + Plan note Future Appointments Appointment Date:08/11/2025 10:30:00 AM Scheduled Provider:Rashida ELDRIDGE MD Location:[facility] Appointment Type:URO Office Visit [facility] Evaluation noteNo assessment information available [facility] Work Phone: Evaluation note* Diagnosis Type 2 diabetes mellitus with diabetic neuropathy, without long-term current use of insulin (CMS/HCC)- Primary Essential hypertension (CMS/HCC) Unspecified essential hypertension Generalized anxiety disorder (CMS/HCC) Generalized anxiety disorder Acquired hypothyroidism (CMS/HCC) Unspecified hypothyroidism Kidney stone Calculus of kidney History of pulmonary embolism Personal history of venous thrombosis and embolism Vitamin B12 deficiency (non anemic) Other B-complex deficiencies Fecal impaction (CMS/HCC) Other impaction of intestine Hypokalemia Hypopotassemia Need for immunization against influenza Need for prophylactic vaccination and inoculation against influenza Mixed hyperlipidemia ([facility]/HCC) Mixed hyperlipidemia documented in this encounter [facility] HealthcareEvaluation note* Diagnosis Onset Date Resolution Status History of pulmonary embolism acute [facility] Work Phone: Evaluation note* Diagnosis Type 2 diabetes mellitus with diabetic neuropathy, without long-term current use of insulin (CMS/HCC)- Primary Essential hypertension (CMS/HCC) Unspecified essential hypertension Mixed hyperlipidemia (CMS/HCC) Mixed hyperlipidemia Generalized anxiety disorder (CMS/HCC) Generalized anxiety disorder Acquired hypothyroidism ([facility]/HCC) Unspecified hypothyroidism Gastroesophageal reflux disease without esophagitis Esophageal reflux Primary insomnia Persistent disorder of initiating or maintaining sleep Vitamin D deficiency Vitamin B12 deficiency (non anemic) Other B-complex deficiencies History of pulmonary embolism Personal history of venous thrombosis and embolism Medicare annual wellness visit, subsequent ACP (advance care planning) Other specified counseling Medication management Diarrhea, unspecified type Breast screening Breast screening, unspecified documented in this encounter [facility] HealthcareEvaluation note* Diagnosis Intermediate stage nonexudative age-related macular degeneration of left eye- Primary Type 2 diabetes mellitus with diabetic neuropathy, without long-term current use of insulin (HCC) Bilateral posterior capsular opacification Unspecified after-cataract Dry eyes Unspecified tear film insufficiency documented in this encounter [facility] HealthcareHistory general Narrative - Reported* Type Description Date [...] History see above Hospitalization History pulmonary embolism [facility] 12/13/19 Hospitalization History [facility]. and chest pain 04/25/21 Hospitalization History [facility] as above 04/29/21 [email or web address] Other Hospital course Narrative No data available for this section [facility] No data available for this section [facility] Re-vinyl progress note No data available for this section [facility] Summary Purpose Family History No Family History Records Found Relationship Condition Age at Onset Recorded Date/T kyler father Unknown mother Unknown Malignant neoplasm Unknown Advance Directives No Advanced Directives Records Found Advance Directive Response Recorded Date/ Time Advance Directives Yes June 11:37am Chief Complaint and Reason for Visit Chief Complaint COVID+. Chief Complaint CEA: 1 yr f/u PE Reason for Visit History of pulmonary embolism Additional Source Comments INFORMATION SOURCE (unrecogn ized section and content) DATE CREATED AUTHOR 03/10/2019 [facility] DATE CREATED AUTHOR AUTHOR'S ORGANIZ ATION 11/16/2021 [facility] DATE CREATED AUTHOR AUTHOR'S ORGANIZ ATION 05/26/2022 [facility] DATE CREATED AUTHOR AUTHOR'S ORGANIZ ATION 12/19/2022 [facility] DATE CREATED AUTHOR AUTHOR'S ORGANIZ ATION 02/21/2023 [facility] DATE CREATED AUTHOR AUTHOR'S ORGANIZ ATION 03/01/2023 [facility] dical Specialist DATE CREATED AUTHOR AUTHOR'S ORGANIZ ATION 02/27/2024 [facility] DATE CREATED AUTHOR AUTHOR'S ORGANIZ ATION 06/17/2024 [facility] DATE CREATED AUTHOR AUTHOR'S ORGANIZ ATION 07/31/2024 [facility] DATE CREATED AUTHOR AUTHOR'S ORGANIZ ATION 08/10/2024 [facility] DATE CREATED AUTHOR AUTHOR'S ORGANIZ ATION 08/11/2024 [facility] DATE CREATED AUTHOR AUTHOR'S ORGANIZ ATION 08/12/2024 [facility] DATE CREATED AUTHOR AUTHOR'S ORGANIZ ATION 08/15/2024 [facility] DATE CREATED AUTHOR AUTHOR'S ORGANIZ ATION 08/17/2024 [facility] DATE CREATED AUTHOR AUTHOR'S ORGANIZ ATION 08/19/2024 [facility] DATE CREATED AUTHOR AUTHOR'S ORGANIZ ATION 08/27/2024 [facility] DATE CREATED AUTHOR AUTHOR'S ORGANIZ ATION 05/22/2025 [facility] DATE CREATED AUTHOR AUTHOR'S ORGANIZ ATION 07/06/2025 [facility] dical Specialists EPIC Care Teams (unrecognized sec tion and content) Team Status: Active Member Role Status Dates Jared Hedrick MD Primary Care Provider Active Team Status: Inactive Member Role Status Dates Jared Hedrick MD Primary Care Provider Active St art: August 12, 2024 End: August 12, 2024 Obdulio Bradley DO Attending Provider Active St art: August 12, 2024 End: August 12, 2024 Team Status: Inactive Member Role Status Dates Jared Hedrick MD Primary Care Provider Active RAUL Mann Attending Provider Acti ve 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 Relationship Specialty Start Date End Date Jared Hedrick MD [address] [place] [address] PCP - Devoted 10/30/21 Jared Hedrick MD [address] [place] [address] PCP - General Internal Medicine 03/23/23 Naye Jones, SKYLER [address] [place] [address] Registered Nurse Internal Medicine 08/31/23 Mayuri Brown DO [address] [place] [address] Referring Physician Ophthalmology 10/13/23 Rashida Eldridge MD [address] [place] [address] Referring Physician Urology 01/12/24 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 Relationship Specialty Start Date End Date Jared Hedrick MD [address] [place] [address] PCP - Devoted 10/30/21 Jared Hedrick MD [address] [place] [address] PCP - General Internal Medicine 03/23/23 Naye Jones RN [address] [place] [address] Registered Nurse Internal Medicine 08/31/23 Mayuri Brown DO [address] [place] [address] Referring Physician Ophthalmology 10/13/23 Rashida Eldridge MD [address] [place] [address] Referring Physician Urology 01/12/24 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 Relationship Specialty Start Date End Date Jared Hedrick MD [address] [place] [address] PCP - Devoted 10/30/21 Jared Hedrick MD [address] [place] [address] PCP - General Internal Medicine 03/23/23 Mayuri Brown DO [address] [place] [address] Referring Physician Ophthalmology 10/13/23 Lili Prakash LPN Licensed Practical Nurse Family Medicine 08/29/24 Hannah Chacon MD [address] [facility] [place] [address] Urology 01/13/25 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 Relationship Specialty Start Date End Date Jared Hedrick MD [address] [place] [address] PCP - Devoted 10/30/21 Jared Hedrick MD [address] [place] [address] PCP - General Internal Medicine 03/23/23 Mayuri Brown DO [address] [place] [address] Referring Physician Ophthalmology 10/13/23 Lili Prakash LPN Licensed Practical Nurse Family Medicine 08/29/24 Hannah Chacon MD [address] [facility] [place] [address] Urology 01/13/25 Rashida Eldridge MD [address] [facility] [place] [address] Referring Physician Urology 02/10/25 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 Relationship Specialty Start Date End Date Jared Hedrick MD [address] [place] [address] PCP - Devoted 10/30/21 Jared Hedrick MD [address] [place] [address] PCP - General Internal Medicine 03/23/23 Mayuri Brown DO [address] [place] [address] Referring Physician Ophthalmology 10/13/23 Lili Prakash LPN Licensed Practical Nurse Family Medicine 08/29/24 Hannah Chacon MD [address] [facility] [place] [address] Urology 01/13/25 Rashida Eldridge MD [address] [facility] [place] [address] Referring Physician Urology 02/10/25 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 Relationship Specialty Start Date End Date Jared Hedrick MD [address] [place] [address] PCP - Devoted 10/30/21 Jared Hedrick MD [address] [place] [address] PCP - General Internal Medicine 03/23/23 Mayuri Brown DO [address] [place] [address] Referring Physician Ophthalmology 10/13/23 Lili Prakash LPN [address] [place] [address] Licensed Practical Nurse Family Medicine 08/29/24 Hannah Chacon MD [address] [facility] [place] [address] Urology 01/13/25 Rashida Eldridge MD [address] [facility] [place] [address] Referring Physician Urology 02/10/25 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 Relationship Specialty Start Date End Date Jared Hedrick MD [address] [place] [address] PCP - Devoted 10/30/21 Jared Hedrick MD [address] [place] [address] PCP - General Internal Medicine 03/23/23 Mayuri Brown DO [address] [place], [place] [address] [address] [place] [address] Referring Physician Ophthalmology 10/13/23 Lili Prakash LPN [address] [place] [address] Licensed Practical Nurse Family Medicine 08/29/24 Hannah Chacon MD [address] [facility] [place] [address] Urology 01/13/25 Rashida Eldridge MD [address] [facility] [place] [address] Referring Physician Urology 02/10/25 Goals (unrecognized section and content) Goals may [...] this section No data available for this sectionGoals may be documented in an alternate section No data available for this section No data available for this section No data available for this section No data available for this section No data available for this section No data available for this section REASON FOR VISIT (unrecogniz ed section and content) Reason Comments 3 Month Follow Up Reason Comments 6 Month Follow-up of Chronic Conditions Review lab drawn 02/04/2025 Medicare Annual Wellness Visit Subsequen t Reason Comments Blurred Vision Diabetic Eye Exam FOR RECORDS PERTAINING TO PATIENTS WHO ARE [...] BE BASED ON THE PRIMARY CLINICAL RECORDS. [employer] provides no warranty or guarantee of the accuracy or completeness of information in this document.
== END 2025-08-07 10:55 | disposition home or self-care (01) ==
LOC: US 10:54
PROVIDERS: PCP Internal Medicine; Visit Provider Urology
DX: N20.0 Calculus of kidney (principal)
CPT/HCPCS: 74018; 76775

== ENCOUNTER 2025-08-22 12:17 | Outpatient (OUT) | payer OTHER, SELFPAY ==
--- OUTSIDE RECORDS SUMMARY | 2025-08-13 09:15 | XMS_ITS | Encounter Summary ---
Author Organization [facility] Address [address] [place] [address] Care Team Providers Care Cup Trimming Machine Operator Name Role Phone Tom Kirk MD Unavailable [phone] Tom Kirk MD Primary Care Provider [phone] Gabino Ballard DO Unavailable [phone] Lili Prakash LPN Unavailable [phone] Terrance Chacon MD Unavailable Garrett Baum MD Unavailable [phone] Reason for Visit * ReasonComments6 mos ovReview lab Encounter Details DateTypeDepartmentCare Team (Latest Contact Info)Gfvclniqovn44/15/2025 9:15 AM EDTOffice Visit [facility] [address] [phone] Blanche Dominguez, [employer]AX AUDITOR [address] [facility] [address] [place] [address] Type 2 diabetes mellitus with diabetic neuropathy, without long-term current use of insulin (HCC) (Primary Dx); Essential hypertension; Mixed hyperlipidemia; Metabolic dysfunction-associated steatotic liver disease (MASLD); History of pulmonary embolism; Generalized anxiety disorder; Acquired hypothyroidism; Primary insomnia; Irritable bowel syndrome with both constipation and diarrhea; Vitamin B12 deficiency (non anemic); Vitamin D deficiency; Need for immunization against influenza Social History Tobacco UseTypesPacks/DayYears UsedDateSmoking Tobacco: NeverSmokeless Tobacco: NeverAlcohol UseStandard Drinks/WeekCommentsNever0 (1 standard drink = 0.6 oz pure alcohol)Caffeine intake: coffee, tea, popPHQ-2AnswerDate RecordedPatient Health Questionnaire-2 [id number] and Gender InformationValueDate RecordedSex Assigned at BirthNot on fileLegal SexFemale 01/11/2023 7:19 PM EDTGender IdentityNot on fileSexual OrientationNot on file OccupationIndustryJob Start DateJob End 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 Chelsea Gaston is a 80 y.o. female presents with chief complaint of 6 mos ov (Review lab ) HPI: History of Present Illness The patient is an 80-year-old female who presents for a 6-month office visit. Increased A1c Levels She reports no changes in her medication regimen since the last visit but admits to consuming more sugar than usual, which she attributes to stress. She is currently on Rybelsus. Recent lab results indicate an increase in her A1c from 7.2 to 8.7. - Alleviating/Aggravating Factors: Consuming more sugar than usual due to stress. - Severity: A1c increased from 7.2 to 8.7. Bowel Issues She continues to experience significant bowel issues, which she considers her most pressing health concern. She was scheduled for an EGD at the [facility] but canceled it based on her daughter's advice due to concerns about anesthesia risks at her age. She is under the care of Dr. Ludin Lambert at [facility] for her gastrointestinal issues. Her last colonoscopy was performed in 2023. She experiences both constipation and diarrhea, often with less than 30 seconds' notice before needing to use the bathroom. She has discontinued Linzess and probiotics as they were ineffective. - Onset: Ongoing bowel issues. - Character: Constipation and diarrhea with less than 30 seconds' notice before needing to use the bathroom. - Alleviating/Aggravating Factors: Discontinued Linzess and probiotics as they were ineffective. - Severity: Significant bowel issues considered the most pressing health concern. Fatigue The patient also mentions feeling fatigued and occasionally uses Remeron to aid sleep, although itseffectiveness varies. She is currently taking Celexa. She reports no chest pain or breathing difficulties. - Character: Fatigue. - Alleviating/Aggravating Factors: Occasionally uses Remeron to aid sleep; effectiveness varies. Hobbies: Reading Sleep: Uses Remeron occasionally for sleep; effectiveness varies I have reviewed and reconciled the history and medication list with the patient today. HISTORIES: PAST MEDICAL HISTORY: Medical History[1] SURGICAL HISTORY: Surgical History[2] SOCIAL HISTORY: Social History[3] Depression: Not at risk (02/10/2025) PHQ-2 PHQ-2 Score: 0 FAMILY HISTORY: Family History[4] MEDICATIONS: Current Outpatient Medications Medication Instructions Blood Glucose Monitoring Suppl (OneTouch Verio Flex System) w/Device kit 1 Device, Does not apply, Daily citalopram (CELEXA) 20 mg, Oral, Daily diphenoxylate-atropine (Lomotil) 2.5-0.025 MG tablet 1 tablet, 4 times daily PRN glucose blood (OneTouch Verio) test strip Check blood sugar 1x daily hydroCHLOROthiazide (HYDRODIURIL) 25 mg, Oral, Daily Lancets Micro Thin 33G misc 1 Device, Does not apply, Daily levothyroxine (LEVOXYL) 88 mcg, Oral, Daily before breakfast mirtazapine (REMERON) 15 mg, Oral, Nightly Multiple Vitamins-Minerals (multivitamin with iron-minerals) liquid Daily Multiple Vitamins-Minerals (PreserVision AREDS 2) capsule 1 capsule pantoprazole (PROTONIX) 40 mg, Daily before breakfast rivaroxaban (XARELTO) 10 mg, Daily with breakfast rosuvastatin (CRESTOR) 10 mg, Oral, Daily semaglutide (RYBELSUS) 14 mg, Oral, Daily before breakfast triamcinolone (Kenalog) 0.1 % cream 1 application , 2 times daily PRN ALLERGIES: Allergies[5] PHYSICAL EXAM: Visit Vitals BP 132/72 Pulse 94 Wt 142 lb SpO2 98% BMI 24.37 kg/m?? Smoking Status Never BSA 1.71 m?? BP Readings from Last 3 Encounters: 08/13/25 132/72 02/10/25 116/60 08/05/24 112/60 Wt Readings from Last 3 Encounters: 08/13/25 142 lb 02/10/25 137 lb 08/05/24 143 lb Physical Exam HENT: Mouth/Throat: Mouth: Mucous membranes are moist. Neck: Vascular: No carotid bruit. Cardiovascular: Rate and Rhythm: Normal rate and regular rhythm. Heart sounds: No murmur heard. No friction rub. No gallop. Pulmonary: Effort: Pulmonary effort is normal. Breath sounds: Normal breath sounds. Abdominal: General: Bowel sounds are normal. Palpations: Abdomen is soft. Tenderness: There is no abdominal tenderness. Musculoskeletal: Right lower leg: No edema. Left lower leg: No edema. Lymphadenopathy: Cervical: No cervical adenopathy. Skin: General: Skin is warm and dry. Neurological: Mental Status: She is alert and oriented to person, place, and time. Psychiatric: Thought Content: Thought content normal. Results Labs - A1c: 8.7 (previously 7.2) - Vitamin B12 level: Normal - Kidney function: Good - Sodium: Normal - Potassium: Normal - Calcium: Normal - Liver enzymes: Normal - Total cholesterol: 140 mg/dL - HDL: 48 mg/dL - Triglycerides: 147 mg/dL - LDL: 69 mg/dL ASSESSMENT AND PLAN: Assessment & Plan 1. Type 2 diabetes mellitus with diabetic neuropathy, without long-term current use of insulin (HCC) (Primary) Diabetes Mellitus: Chronic. A1c levels increased from 7.2 to 8.7, likely due to dietary changes involving increased sugar intake. - She has been eating cookies regularly due to stress. - Modify diet to reduce sugar intake. - Order for A1c test placed for next visit in 3 months. - No changes to current medication regimen. - Hemoglobin a1c with eag; Future - Hemoglobin a1c with eag 2. Essential hypertension Doing well. Blood pressures have been good. Continue lifestyle modifications. Continue current medication. Call if any problems or if home blood pressures rising. 3. Mixed hyperlipidemia Labs stable. Continue Rosuvastatin as directed. 4. Metabolic dysfunction-associated steatotic liver disease (MASLD) Stable. Continue to monitor. Will calculate when she has recent CBC done. 5. History of pulmonary embolism Doing well. Continue current regimen. 6. Generalized anxiety disorder She is stressed in caring for her . We discussed different options for help. [facility] for [facility], help in the home. Her does occasionally have anger outbursts. - Continue Celexa. - Discuss potential use of Ativan or Xanax for anxiety management if needed. 7. Acquired hypothyroidism Doing well. Continue current regimen. 8. Primary insomnia Stress and Sleep Issues: Chronic. - Continue Remeron for sleep. - Provided handout on sleep hygiene. 9. Irritable bowel syndrome with both constipation and diarrhea Irritable Bowel Syndrome with Constipation and Diarrhea: Chronic. - Follow up with lotus notes developer. - Consider referral to a specialist at the [facility] if unsatisfied with current GI care. 10. Vitamin B12 deficiency (non anemic) Stable. Continue to monitor. 11. Vitamin D deficiency Stable. Continue to monitor. 12. Need for immunization against influenza - Flu vaccine, trivalent, adjuvanted, preservative free Follow-up - Follow up in [address] Kirk was present in the office at the time of visit today and is supervising patient care. I amfollowing Dr. Kirk's established plan of care for the above issues. Dr Kirk in to examine this pt today. [1] Past Medical History: Diagnosis Date Allergic rhinitis ARMD (age related macular degeneration) BMI 26.0-26.9,adult Colon polyps Diabetes mellitus due to underlying condition with diabetic polyneuropathy (HCC) Diastolic dysfunction Hypothyroidism IBS (irritable bowel syndrome) Insomnia Metabolic dysfunction-associated steatotic liver disease (MASLD) 04/09/2023 Migraine headache Mixed hyperlipidemia Gomez's neuroma of right foot OM (onychomycosis) PE (physical exam), annual 12/13/2019 Personal history of medical treatment 04/09/2015 EF 55-60% Schatzki's ring of distal esophagus 04/09/2023 Type 2 diabetes mellitus (HCC) Uric acid kidney stone Vitamin D deficiency [2] Past Surgical History: Procedure Laterality Date APPENDECTOMY 1985 BACK SURGERY 2002 CARPAL TUNNEL RELEASE 2006 CATARACT EXTRACTION CATARACT EXTRACTION, BILATERAL 2021 CHOLECYSTECTOMY 1980 COLONOSCOPY 01/03/2017 COLONOSCOPY 01/30/2024 CT ANGIOGRAM ABDOMEN 07/06/2023 CT ANGIOGRAM ABDOMEN 07/06/[address] CYSTOSTOMY 04/24/2016 executive urology DILATION AND [...] bursa OTHER SURGICAL HISTORY 2012 [facility] Jay [facility] [place] [facility] [place] OTHER SURGICAL HISTORY Left 04/20/2015 [facility] OTHER SURGICAL HISTORY L4 & L5 fusion RENAL ARTERY STENT Right 2011 ROTATOR CUFF REPAIR Right 2008 ROTATOR CUFF REPAIR Left 2014 SALIVARY GLAND SURGERY 2009 partoidectomy TONSILLECTOMY [3] Social History Tobacco Use Smoking status: Never Smokeless tobacco: Never Vaping Use Vaping status: Never Used Substance Use Topics Alcohol use: Never Comment: Caffeine intake: coffee, tea, pop Drug use: Never [4] Family History Problem Relation Name Age of Onset Heart failure Mother Cancer Mother COPD Mother Cancer Father Stroke Maternal Grandmother Diabetes Maternal Grandmother Hypertension Maternal Grandmother Breast cancer Neg Hx Colon cancer Neg Hx Ovarian cancer Neg Hx [5] Allergies Allergen Reactions Clarithromycin GI intolerance Other Reaction(s): stomach ache Codeine Nausea Only Meloxicam GI intolerance Meperidine Anxiety Metformin Hcl GI intolerance Moxifloxacin Other Reaction(s): stomach ache Nalbuphine Rash Penicillin G Rash Phenazopyridine GI intolerance Promethazine Itching and Other Protamine Other reaction(s): Unknown Shellfish Allergy Hives Scallops only Sulfa Antibiotics Rash Tobramycin Hives Tramadol GI intolerance documented in this encounter Plan of Treatment DateTypeDepartmentCare Team (Latest Contact Info)Ozyvmzxmkkn81/16/2026 9:45 AM EDTOffice Visit [facility] [address] [place] [address] NameTypePriorityAssociated DiagnosesOrder ScheduleHemoglobin a1c with eagLab Routine Type 2 diabetes mellitus with diabetic neuropathy, without long-term current use of insulin (HCC) Expected: 11/13/2025, Expires: 02/11/2026documented as of this encounter Visit Diagnoses Diagnosis Type 2 diabetes mellitus with diabetic neuropathy, without long-term current use of insulin (HCC)- Primary Essential hypertension Unspecified essential hypertension Mixed hyperlipidemia Metabolic dysfunction-associated steatotic liver disease (MASLD) History of pulmonary embolism Personal history of venous thrombosis and embolism Generalized anxiety disorder Acquired hypothyroidism Unspecified hypothyroidism Primary insomnia Persistent disorder of initiating or maintaining sleep Irritable bowel syndrome with both constipation and diarrhea Vitamin B12 deficiency (non anemic) Other B-complex deficiencies Vitamin D deficiency Need for immunization against influenza Need for prophylactic vaccination and inoculation against influenza documented in this encounter Care Teams Team MemberRelationshipSpecialtyStart DateEnd Date Tom Kirk MD [address] [place] [address] PCP - Devoted10/30/21 Tom Kirk MD [address] [place] [address] PCP - GeneralInternal Medicine03/23/23 Gabino Ballard DO [address] [place] [address] [address] [place] [address] Referring MzrijxjlyAixjzaqkaecch89/15/23 Lili Prakash LPN [address] [place] [address] Licensed Practical NurseFamily Mrehlsfk56/31/24 Terrance Chacon MD [address] [place] [address] [place] [address] Urology01/13/25 Garrett Baum MD [address] [place] [address] Referring PhysicianUrology02/10/25documented as of this encounter
--- OUTSIDE RECORDS SUMMARY | 2025-08-14 06:15 | XMS_ITS | Continuity of Care Document ---
Author Organization [facility] Address [address] [place] [address] Phone Care Team Providers Care Parakeet Raiser Name Role Phone Tom Kirk MD Primary Care Provider Bethanie Davis MD Attending Provider Care Teams Patient Care Team Team Status: Active Member Role Status Dates Tom Kirk MD Primary Care Provider Active Patient Care Team Team Status: Inactive Member Role Status Natalie Kirk MD Primary Care Provider Active St art: August 14, 2025 End: [facility] ProviderActiveStart: August 14, 2025 End: August 14, 2025 Chief Complaint and Reason for Visit Chief Complaint 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 Hx of PE August 14 9:46am Allergies, Adverse Reactions, Alerts Allergen Type Severity Reaction Last Updated Verified Status blue dye Allergy Unknown Unknown Reaction August 14, 2025 9:51am Yes Active ciprofloxacin Allergy Unknown Diarrhea August 14, 2025 9:51am Yes Active codeine Allergy Unknown Vomiting August 14, 2025 9:51am Yes Active meperidine Allergy Unknown Anxiety August 14, 2025 9:51am Yes Active moxifloxacin Allergy Unknown Diarrhea August 14, 2025 9:51am Yes Active penicillin V Allergy Unknown Unknown Reaction August 14, 2025 9:51am Yes Active phenazopyridine Allergy Unknown Vomiting August 14, 2025 9:51am Yes Active promethazine Allergy Unknown Hives August 14, 2025 9:51am Yes Active red dye Allergy Unknown Unknown Reaction August 14, 2025 9:51am Yes Active sulfacetamide Allergy Unknown Unknown Reaction August 14, 2025 9:51am Yes Active sulfur Allergy Unknown Unknown Reaction August 14, 2025 9:51am Yes Active tobramycin Allergy Unknown Hives August 14, 2025 9:51am Yes Active tramadol Allergy Unknown Vomiting August 14, 2025 9:51am Yes Active yellow dye Allergy Unknown Unknown Reaction August 14, 2025 9:51am Yes Active levofloxacin Allergy Unknown Unknown Reaction August 14, 2025 9:51am Yes Active Penicillins Allergy Unknown Rash August 14, 2025 9:51am Yes Active scallops Allergy Unknown Edema August 14, 2025 9:51am Yes Active Sulfa (Sulfonamide Antibiotics) Allergy Unknown Rash August 14, 2025 9:51am Yes Active telithromycin Allergy Unknown Unknown Reaction August 14, 2025 9:51am Yes Active clindamycin Adverse Reaction Unknown Diarrhea August 14, 2025 9:51am Yes Active Iodinated Contrast Media Adverse Reaction Unknown Flushing August 14, 2025 9:51am Yes Active Dye ASSISTED Green 3 Allergy Unknown Unknown Reaction August 12, 2024 10:55am No Active avalox Allergy Unknown Unknown Reaction May 24, 2022 10:03am No Active phendzopyridine Allergy Unknown Unknown Reaction May 24, 2022 10:04am No Active uricet Allergy Unknown Unknown Reaction May 24, 2022 10:02am No Active Social History Smoking Status Status Start Date End Date Date of Observa tion Never smoked tobacco (finding) August 14, 2025 9:48am Observation Status Observation Response Date of Response Legal Sex Female (finding) [facility] Family History Relationship Condition Age at Onset Recorded Date/T kyler father Unknown motherDeceasedUnknownMalignant neoplasmUnknown Problems Active Problems Medical Problem Onset Date Status Glucosuria Unknown Active Diabetes mellitus Unknown Active Pulmonary thromboembolism Unknown Active Hyperlipidemia Unknown Active Absolute hypovolemia Unknown Active Elevated blood ketone body level Unknown Active Acute urinary tract infection Unknown Ac tive History of pulmonary embolism Unknown Ac tive Abdominal pain Unknown Active Abdominal pain Unknown Active Kidney stone on left side Unknown Active Constipation Unknown Active Medications Medication Status Dose Units Route Directions Qty Days St art Date Stop Date End Date Instructions Adherence Rivaroxaban (Xarelto) 20 mg tablet Discontinued 20 MG PO Daily 90 90 May 29, 2024 12:55pm August 12, 2024 12:09pmRivaroxaban (Xarelto) 10 mg gzzpopCqgcso45YAYFWshfm49 90September 2024 11:41amComplies with drug therapyCholecalciferol (Vitamin D3) (Vitamin D3) 2,000 unit CnfdornIawble3315KQENKAIbpdlQppctaz 2018 1:00amComplies with drug therapyPsyllium Husk (Metamucil) 0.4 gram capsuleActive 0.8DDKZNjmmm6864Peum 2020 12:00amComplies with drug therapyDocusate Sodium (Colace) 100 mg nucxkxlOaeclp936QKNOUrwsl ljeoi4693Dgvu 2020 12:00am Complies with drug therapyMetformin 500 mg okeetaSwagcrkmpryd732YOCKObzdk42Zcxi 2020 12:00amOctober 2024 9:52amOndansetron Hcl (Zofran) 4 mg tablet Wwqzma9IXKEX6Z as needed for nausea and qydwldfn207Jube 2020 12:00am Complies with drug therapyCitalopram 10 mg RaxuuoNryvmk45EDZQJqkllTjinwl 2017 12:00amComplies with drug therapyAcetaminophen (Tylenol Extra Strength) 500 mg GwexmqMvmnmq675MSBFO7F as needed for PainAugust 2017 12:00amComplies with drug therapyLevothyroxine (Levoxyl) 100 mcg RluqslCezkvibvjfjc220HSVRVUpkhr June 28, 2018 12:00amJanuary 2018 4:52pmSimvastatin 20 mg TabletActive 20MGPODaily at bedtimeAugust 2017 12:00amComplies with drug therapy Glimepiride 4 mg OxsmlqAkixaf7CBNFUojgnBvhknz 2017 12:00amComplies with drug therapyHydrochlorothiazide 25 mg XwhzytIlputm20OTMOMurgzMerhti 2017 12:00amComplies with drug therapyMirtazapine 15 mg FpogexLcifmx87CZFJEdnidTzzscm 2017 12:00amComplies with drug therapyFexofenadine-Pseudoephedrine (Haydee-D 12 Hour) 60-120 mg Tablet Extended Release 12 JdMexypg0HEEFXT70T as needed for Allergy SymptomsAugust 2017 12:00amComplies with drug therapy Dicyclomine 10 mg IygqemgFdsnctprvzcf09SNOJKoao times daily as needed for Abdominal DiscomfortAugust 2017 12:00amJanuary 2018 4:51pm Sitagliptin Phosphate (Januvia) 100 mg YftpaeKtzkbqtnuvnr466SWRNKxbkaVtdkws 2017 12:00amJune 2020 7:55amLevothyroxine 100 mcg XxwvtplAcqqss35NDO PODailyAugust 2017 12:00amComplies with drug therapyVitamins A,C,Q-Icut-Bsdedw (Preservision Areds) 7,160-113-100 sapg-td-wgmp Tablet Ljeugrledndr7NGFJBTwzhx dailytsaile health centert 2017 12:00am[facility] 7:55am Rivaroxaban (Xarelto) 15 mg aayhopGxmbbclsavsf34FZQVWerij okbtn0570Hmjeuebt 2019 1:00amApril 25, 2021 7:55ammust administer with a meal/food Rivaroxaban (Xarelto) 20 mg QazdylDggbzcrfnurn97LHGJEdqrqOofq 2020 12:00am May 29, 2024 12:57pmEmpagliflozin-Linagliptin (Glyxambi) 25-5 mg TabletActive 1TABPODailyAnson Community Hospitale 2020 12:00amComplies with drug therapyDicyclomine 20 mg XoiygyQfvxtnlredqg40OGJKXsmn times iotfu55Xmyo 2020 12:00amOctober 2023 11:23amNitrofurantoin Monohyd/M-Cryst (Macrobid) 100 mg OhupmeaVneoku864QS OUP70T23Itmf 2020 12:00amAdminister with a meal/food: swallow whole; do not open, crush, dissolve, or chewComplies with drug therapyPantoprazole 40 mg tablet,delayed release (DR/EC)Yhhyhl18TRXZOsslmRejlijp 2023 12:00am Complies with drug therapyTrospium 20 mg qgalclVlsiec42QFRBIzjpJployme 2023 12:00amComplies with drug therapyRivaroxaban (Xarelto) 10 mg tablet Lyltgoktrfoy43PLKVHplmq1972Mxfekzp 2023 12:00amSeptember 2024 11:42amSemaglutide (Rybelsus) 14 mg qxihalEdxzxr26VEUXPpltqCdlymwb 2024 12:00amComplies with drug therapy Immunizations Immunization Event Date Not Given Reason Dose Number Seat Pack Inspector Lot Number Vaccine Information Statement (VIS) Detail Administration Location COVID-19 mRNA, [place] (ROKT) November 27, 2020 COVID-19 mRNA, Comirnaty (ROKT)December 18, 2020 Vital Signs Vital Reading Result Reference Range Collection Date/Time Height 64 [in_i] August 14, 2025 9:59vaLrmcuk74.41 [facility]Octs[facility] 2024 9:55amHeart Rate72 /cvg23-757Mdytbye 2024 9:55amRespiratory rate20 /ylr61-74Ejiaqst 2024 9:55amOxygen saturation by Pulse %95-100[facility] 2024 9:55amBP Vcfrmzak383 mm[Hg]100-140[facility] 2024 9:55amBP Vusylqtno68 mm[Hg] 60-100[facility] 2024 9:55amBMI (Body Mass Index)24.3 kg/e2Lwvoydr 2024 9:55am Advance Directives Advance Directive Response Recorded Date/ Time Advance Directives Yes June 11:37am Insurance Providers Guarantor Chelsea Gaston Address [address] [place] [id number] Info.Home Phone: Payer Policy Id Subscriber's Name Subscriber Id Effectiv e Date Expiration Date Medicare [id number] Chelsea Gaston [id number] [facility] Health Plans [facility] [id number] Jamey [id number] Chelsea [id number] LIfe [id number] L [id number] Encounters Encounter Location(s) Arrival/Admit Date Discharge/Depart Date Provider(s) Departed Physician/Prov ider Office Visit -[facility] August 14, 2025 9:46am August 14, 2025 10:14am Bethanie Davis MD
--- OUTSIDE RECORDS SUMMARY | 2025-08-22 12:21 | XMS_ITS | Clinical Summary ---
Author Organization [facility] Address [address] [place] [address] Phone Care Team Providers Care Arts Administrator Or Manager Name Role Phone Unavailable Primary Care Provider Unavailabl e Social History Tobacco UseTypesPacks/DayYears UsedDateSmoking Tobacco: Never Assessed CommentsUnknownSex and Gender InformationValueDate RecordedSex Assigned at Not on fileLegal FeqLnojyd10/02/2023 5:11 AM EDTGender IdentityNot on fileSexual OrientationNot on file Plan of Treatment Health MaintenanceDue DateLast DoneCommentsLipid Panel1943Yearly Adult Gxasfyxz1943DTaP/Tdap/Td Vaccines (1 - Tdap)1965Pneumococcal Vaccine (1 of 1 - PCV)1993Zoster Vaccines (1 of 2)1993Bone Density Scan 2008RSV High Risk: (Elderly (60+) or Population) (1 - 1-dose 75+ series)2018Influenza Vaccine (#1)5COVID-19 Vaccine (1 - season)2025HIB VaccinesAged OutNo longer eligible based on patient's age to complete this topicHPV VaccinesAged OutNo longer eligible based on patient's age to complete this topicHepatitis A VaccinesAged OutNo longer eligible based on patient's age to complete this topicHepatitis B VaccinesAged OutNo longer eligible based on patient's age to complete this topicIPV VaccinesAged OutNo longer eligible based on patient's age to complete this topicMeningococcal VaccineAged OutNo longer eligible based on patient's age to complete this topic Rotavirus VaccinesAged OutNo longer eligible based on patient's age to complete this topic
--- OUTSIDE RECORDS SUMMARY | 2025-08-22 12:21 | XMS_ITS | Encounter Summary ---
Author Organization [facility] Address [address] [place] [address] Care Team Providers Care Manager Long Term Care Name Role Phone Tom Kirk MD Unavailable [phone] Tom Kirk MD Primary Care Provider [phone] Gabino Ballard DO Unavailable [phone] Lili Prakash LPN Unavailable Terrance Chacon MD Unavailable Garrett Baum MD Unavailable Encounter Details DateTypeDepartmentCare Team (Latest Contact Info)Bqmypwambpg37/21/2025Patient Outreach [facility] [address] [place] [address] Lili Prakash LPN [address] [facility] [address] [place], [place] [id number] Social History Tobacco UseTypesPacks/DayYears UsedDateSmoking Tobacco: NeverSmokeless Tobacco: NeverAlcohol UseStandard Drinks/WeekCommentsNever0 (1 standard drink = 0.6 oz pure alcohol)Caffeine intake: coffee, tea, popPHQ-2AnswerDate RecordedPatient Health Questionnaire-2 Fdows229CommentsUnknownSex and Gender InformationValueDate RecordedSex Assigned at BirthNot on fileLegal SexFemale 01/11/2023 7:19 PM EDTGender IdentityNot on fileSexual OrientationNot on file OccupationIndustryJob Start DateJob End DateRetired- Pharmacy technicianNot on fileNot on fileNot on filedocumented as of this encounter Plan of Treatment DateTypeDepartmentCare Team (Latest Contact Info)Cvfcbrnmgjw80/16/2026 9:45 AM EDTOffice Visit [facility] [address] [place] [address] documented as of this encounter Visit Diagnoses Not on filedocumented in this encounter Care Teams Team MemberRelationshipSpecialtyStart DateEnd Date Tom Kirk MD [address] [place] [address] PCP - Devoted10/30/21 Tom Kirk MD [address] [place] [address] PCP - GeneralInternal Medicine03/23/23 Gabino Ballard DO [address] [place] [address] Referring MaqfdbwsxExqpwbtuxinqf39/15/23 Lili Prakash LPN [address] [place] [address] Licensed Practical NurseFamily Ccvcbiqs92/31/24 Terrance Chacon MD [address] [facility] [place] [address] Urology01/13/25 Garrett Baum MD [address] [facility] [place] [address] Referring PhysicianUrology02/10/25documented as of this encounter
--- OUTSIDE RECORDS SUMMARY | 2025-08-22 12:21 | XMS_ITS | Encounter Summary ---
Author Organization [facility] Address [address] [place] [address] Care Team Providers Care Dynamometer Mechanic Name Role Phone Tom Kirk MD Unavailable [phone] Tom Kirk MD Primary Care Provider [phone] Gabino Ballard DO Unavailable [phone] Lili Prakash LPN Unavailable [phone] Terrance Chacon MD Unavailable [phone] Garrett Baum MD Unavailable [phone] Encounter Details DateTypeDepartmentCare Team (Latest Contact Info)Hswbuaddzzs49/15/2025Travel Social History Tobacco UseTypesPacks/DayYears UsedDateSmoking Tobacco: NeverSmokeless Tobacco: NeverAlcohol UseStandard Drinks/WeekCommentsNever0 (1 standard drink = 0.6 oz pure alcohol)Caffeine intake: coffee, tea, popPHQ-2AnswerDate RecordedPatient Health Questionnaire-2 Yfzew172CommentsUnknownSex and Gender InformationValueDate RecordedSex Assigned at BirthNot on fileLegal SexFemale 01/11/2023 7:19 PM EDTGender IdentityNot on fileSexual OrientationNot on file OccupationIndustryJob Start DateJob End DateRetired- Pharmacy technicianNot on fileNot on fileNot on filedocumented as of this encounter Plan of Treatment DateTypeDepartmentCare Team (Latest Contact Info)Uuorhaccout86/16/2026 9:45 AM EDTOffice Visit [facility] [address] [place] [address] documented as of this encounter Visit Diagnoses Not on filedocumented in this encounter Care Teams Team MemberRelationshipSpecialtyStart DateEnd Tom Kirk MD [address] [place] [address] PCP - Devoted10/30/21 Tom Kirk MD [address] [place] [address] PCP - GeneralInternal Medicine03/23/23 Gabino Ballard DO [address] [place] [address] [address] [place] [address] Referring ZxhxlkbobNhhoguxabvxca63/15/23 Lili Prakash LPN [address] [place] [address] Licensed Practical NurseFamily Oaqovefx76/31/24 [place] [address] [place] [address] [place] [address] Urology01/13/25 Garrett Baum MD [address] [place] [address] Referring PhysicianUrology02/10/25documented as of this encounter
--- OUTSIDE RECORDS SUMMARY | 2025-08-22 12:21 | XMS_ITS | Clinical Summary ---
Author Organization [facility] Address [address] [place] [address] Care Team Providers Care Team Primary Care Physician Name Role Phone Jared Hedrick MD Unavailable [phone] Jared Hedrick MD Primary Care Provider [phone] Gabino Ballard DO Unavailable [phone] Lili Prakash LPN Unavailable [phone] Terrance Chacon MD Unavailable Garrett Baum MD Unavailable [phone] Allergies Active AllergyReactionsCriticalityNoted DateCommentsClarithromycinGI intolerance Low10/20/2021 Other Reaction(s): stomach ache CodeineNausea KhivJgl4404/03/2023MeloxicamGI rsfxpzneikjSts97/05/2023Meperidine XrpsuwtKdr06/05/2023Metformin HclGI cmolsxsyxnyPob32/05/2023MoxifloxacinLow 04/03/2023 Other Reaction(s): stomach ache YxmnucldeuBiimThl54/13/2023enicillin ACcnrXmq94/05/2023henazopyridineGI zcqqarhysteQgn72/11/2023romethazineItching,KbsxhXgp89/05/2023rotamineLow 04/07/2015 Other reaction(s): Unknown Shellfish AkhbrzvNifuzSlm72/09/2015 Scallops only Sulfa PhnmasbynplEkgcOhj28/13/5485GohldyviufJuhwlXao08/05/2023TramadolGI wgxvvjlfollHqo35/09/2015 Medications MedicationSigDispense QuantityRefillsLast FilledStart DateEnd DateStatus diphenoxylate-atropine (Lomotil) 2.5-0.025 MG tablet Take 1 tablet by mouth as needed in the morning and 1 tablet as needed at noon and 1 tablet as needed in the evening and 1 tablet as needed before bedtime for diarrhea.Active Multiple Vitamins-Minerals (PreserVision AREDS 2) capsule 1 capsuleActive triamcinolone (Kenalog) 0.1 % cream Apply 1 application topically as needed in the morning and 1 application as needed in the evening.06/30/2023ctive pantoprazole (Protonix) 40 MG EC tablet Take 40 mg by mouth in the morning. Take before meals. Do not crush, chew, or split.Active hydroCHLOROthiazide (HYDRODiuril) 25 MG tablet Indications:Essential hypertensionTake 1 tablet (25 mg) by mouth Daily 90 tablet ctive levothyroxine (Levoxyl) 88 MCG tablet Indications:Acquired hypothyroidismTake 1 tablet (88 mcg) by mouth in the morning. Take before meals. 90 tablet ctive glucose blood (Qstreamuch Verio) test strip Indications:Type 2 diabetes mellitus with diabetic neuropathy, without long-term current use of insulin ([facility])Check blood sugar 1x daily 100 each tive Blood Glucose Monitoring Suppl (Qstreamuch Verio Flex System) w/Device kit Indications:Type 2 diabetes mellitus with diabetic neuropathy, without long-term current use of insulin ([facility])1 Device Daily 1 kit 01/20/2025tive Lancets Micro Thin 33G [facility] [place] Indications:Type 2 diabetes mellitus with diabetic neuropathy, without long-term current use of insulin ([facility])1 Device Daily 100 each tive rivaroxaban (Xarelto) 10 MG tablet Take 10 mg by mouth in the morning. Take with meals.Active Multiple Vitamins-Minerals (multivitamin with iron-minerals) liquid Take by mouth DailyActive citalopram (CeleXA) 20 MG tablet Indications:Generalized anxiety disorderTake 1 tablet (20 mg) by mouth Daily 90 tablet 5Active rosuvastatin (Crestor) 10 MG tablet Indications:Mixed hyperlipidemiaTake 1 tablet (10 mg) by mouth Daily 90 tablet tive semaglutide (Rybelsus) 14 MG tablet Indications:Type 2 diabetes mellitus with diabetic neuropathy, without long-term current use of insulin (HCC)Take 1 tablet (14 mg) by mouth in the morning. Take before meals. 90 tablet 5Active mirtazapine (Remeron) 15 MG tablet Indications:Primary insomniaTAKE 1 TABLET AT BEDTIME 90 tablet 5Active Probiotic Product (ALIGN PO) Take by mouth08/13/2025Discontinued(Therapy completed) Linzess 145 MCG capsule Take 145 mcg by mouth in the morning. Take before meals. Discontinued(Therapy completed) Active Problems ProblemNoted DateDiagnosed DateHistory of colon aruqhm4708/03/2024History of kidney tgkkzm0804/27/2024History of migraine azscdffbo74/27/2024enal cyst 10/13/2023Intermediate stage nonexudative age-related macular degeneration of left eye08/28/2023ilateral posterior capsular nxbtrlcugioxv59/30/2023ry eyes 08/28/2023Essential ezzjpgkgrflr34/08/2023neurysm of splenic pgvquc8104/09/2023 Barretts wpqtdjqfu02/11/2023Type 2 diabetes mellitus with diabetic neuropathy, without long-term current use of obfjpdm3204/09/2023astroesophageal reflux disease without ujglhregpip91/11/2023eneralized anxiety pmuhvssq23/11/2023 Acquired xzdxwycocjprlz29/11/2023Irritable bowel syndrome with both constipation and fymjapvk73/11/2023rimary /11/2023Mixed gccojdgkrmzagz90/11/2023 Metabolic dysfunction-associated steatotic liver disease (MASLD)04/09/2023Urge incontinence of urine04/09/2023Vitamin B12 deficiency (non anemic)04/09/2023 Vitamin D lcvslophee22/11/2023History of pulmonary qkazazbw45/11/2020 Resolved Problems ProblemNoted DateDiagnosed DateResolved DateH/O blood clots1 Type 2 diabetes mellitus without complication, without long-term current use of /llergic uelqnrfr48/olon polyps /iastolic xqzviuntlsz98/11/2023094096Welkhlfmn92/11/2023 07/07/2023History of hysterectomy for benign ouyvknq36 Hypercoagulable state ([facility])onstipation04/09/2023 07/07/2023Incontinence of bowelMorton's neuroma of right foot/05/2023Schatzki's ring of distal jtewacpgv96 Uric acid /11/202303/Irritable bowel vpkiukvf82/06/2015 01/10/2024 Encounters DateTypeDepartmentCare ArjvFahsqkjjydf38/21/2025Patient Outreach [facility] [address] [place] [address] Lili Prakash LPN 08/13/2025 9:15 AM EDTOffice Visit [facility] [address] [place] [address] Blanche Dominguez, RACHAEL Type 2 diabetes mellitus with diabetic neuropathy, without long-term current use of insulin (HCC) (Primary Dx); Essential hypertension; Mixed hyperlipidemia; Metabolic dysfunction-associated steatotic liver disease (MASLD); History of pulmonary embolism; Generalized anxiety disorder; Acquired hypothyroidism; Primary insomnia; Irritable bowel syndrome with both constipation and diarrhea; Vitamin B12 deficiency (non anemic); Vitamin D deficiency; Need for immunization against /15/6495Ejgeay03/10/2025External Result Encounter [facility] External Department Unsolicited Jose Guerrier NP 08/07/2025Orders Only [facility] [address] [place] [phone] Unallocated, [facility] MD Librado 08/07/2025linisync Result Encounter [facility] External Department Unsolicited Provider, Generic External Data 08/07/2025linisync Result Encounter [facility] External Department Unsolicited Provider, Generic External Data 07/23/2025Telephone [facility] [address] [place] [address] Orly Bergman LPN Rybelsus from Pt Skecacgrci40/22/2025Patient Outreach [facility] [address] [place] [address] Lili Prakash LPN 07/08/2025Orders Only [facility] [address] [place] [address] Gabino Ballard, Age-related nuclear cataract of both eyes; Bilateral posterior capsular lmufpbsqawdxc90/05/2025 10:45 AM EDTOffice Visit [facility] [address] [place] [address] Gabino Ballard, Intermediate stage nonexudative age-related macular degeneration of left eye (Primary Dx); Type 2 diabetes mellitus with diabetic neuropathy, without long-term current use of insulin (HCC); Bilateral posterior capsular opacification; Dry eyes07/04/2025amboo flowsheet [facility] [address] [place] [address] Gabino Ballard, 07/04/20253027Nhonnb61/20/2025Patient Outreach [facility] [address] [place] [address] Lili Prakash LPN from Last 3 Months Immunizations ImmunizationAdministration DatesNext DueInfluenza, High Dose Seasonal, Preservative Free08/11/2022,08/17/2021,07/19/2017,07/07/2014Influenza, Seasonal, Quadrivalent, Kgmvlpcvoo01/12/2023Influenza, injectable, quadrivalent, preservative free07/19/2017,07/14/2016Influenza, trivalent, aonluwkwdz49/15/2025 ,08/05/2024,07/11/2019,07/12/2018Moderna SARS-CoV-2 50mcg/0.5mL Booster 2Pneumococcal Conjugate PCV 13001/16/2015Pneumococcal Polysaccharide AGLS70817227HSBF-YYQ-5 (COVID-19) vaccine, mRNA, spike protein, LNP, bivalent, preservative free, 30 mcg/0.3 mLdose, john-sucrose formulation 08/27/2022Zoster, Ndfuvnxeqmy73/03/2022,05/27/2021Zoster, live10/30/2011 Family History Medical HistoryRelationNameCommentsCancerFatherDiabetesMaternal Grandmother HypertensionMaternal GrandmotherStrokeMaternal GrandmotherCOPDMotherCancerMother Heart failureMotherBreast cancerNeg HxColon cancerNeg HxOvarian cancerNeg Hx RelationNameStatusCommentsFatherDeceasedMaternal GrandmotherMotherDeceasedSon Alive2 sons Social History Tobacco UseTypesPacks/DayYears UsedDateSmoking Tobacco: NeverSmokeless Tobacco: Never Tobacco Cessation:Counseling Given: Not Answered Alcohol UseStandard Drinks/WeekCommentsNever0 (1 standard drink = 0.6 oz pure alcohol)Caffeine intake: coffee, tea, popPHQ-2AnswerDate RecordedPatient Health Questionnaire-2 Snskg010CommentsUnknownSex and Gender InformationValueDate RecordedSex Assigned at BirthNot on fileLegal SexFemale 01/11/2023 7:19 PM EDTGender IdentityNot on fileSexual OrientationNot on file OccupationIndustryJob Start DateJob End 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- Pharmacy technicianNot on fileNot on fileNot on file Last Filed Vital Signs Vital SignReadingTime TakenCommentsBlood Tesdvjpb407/7210 9:12 AM EDT Iwkhg770208/13/2025 9:12 AM JHGHtzubsmnyti42.6 ??C (97.8 ??F)04/12/2024 2:15 PM EDTRespiratory Hajy701603/09/2024 11:52 AM EDTOxygen Pfwiqcwdoy76%08/13/2025 9:12 AM EDTInhaled Oxygen Concentration--Vbrhmf54.4 kg (142 lb)08/13/2025 9:12 AM EDT Itfrcr566.6 cm (5' 4 )02/10/2025 9:37 AM EDTBody Mass Index24.37002/10/2025 9:37 AM EDT Plan of Treatment DateTypeDepartmentCare Team (Latest Contact Info)Ntfcsmmmbhb32/16/2026 9:45 AM EDTOffice Visit [facility] [address] [place] [phone] Health MaintenanceDue DateLast DoneCommentsPneumococcal Vaccine: 65+ Years (3 of 3 - PCV20 or PCV21), 10/30/2007Diabetes: Hemoglobin A1C , 02/04/2025, 07/31/2024, Additional history existsDiabetes: Urine Protein Tohhbsanb84/05/2025, 01/10/2024, 12/26/2022, Additional history existsMedicare Annual Wellness (AWV)/, 01/03/2023, 01/03/2023, Additional history existsDiabetes: Retinopathy Pfvdfijjy22/05/2027 07/04/2025, 07/04/2025, 07/04/2025, Additional history existsInfluenza Vaccine Beqlyxygz27/15/2025, 08/05/2024, 07/11/2023, Additional history exists Procedures Procedure NamePriorityDate/TimeAssociated DiagnosisCommentsHEMOGLOBIN K3XVumazwq 08/08/2025 10:44 AM EDT VITAMIN J24Bvlxkox64/10/2025 10:44 AM EDT COMPREHENSIVE METABOLIC CAZIKCuyjdrp79/10/2025 10:44 AM EDT LIPID PUWJEKygoruu87/10/2025 10:44 AM EDT US RENAL VPJGFZNSNavjrsa35/09/2025 1:45 PM EDTXR ABDOMEN 1 ZNPYMcuuzph10/09/2025 1:39 PM EDTUS RENAL BI08/07/2025 11:43 AM EDT XR ABDOMEN 1V1 11:40 AM EDT OCT, RETINA - OU - BOTH AAWOQtyefab19/05/2025 11:13 AM EDT Intermediate stage nonexudative age-related macular degeneration of left eye MICROALBUMIN / CREATININE URINE AVOZFFlqwnmp17/08/2025 9:43 AM EDT Type 2 diabetes mellitus with diabetic neuropathy, without long-term current use of insulin (HCC) COLOR FUNDUS PHOTOGRAPHY - OU - BOTH JOZWBnrcree81/15/2022 12:00 PM EST from Last 3 Months or Most Recently Relevant to Health Maintenance Results * (ABNORMAL) Hemoglobin A1c (08/08/2025 10:44 AM EDT)ComponentValueRef RangeTest MethodAnalysis TimePerformed AtPathologist SignatureHemoglobin A1C8.7(H)<5.7 % QUESTComment: For someone without known diabetes, a hemoglobin A1c value of 6.5% or greater indicates that they may have diabetes and this should be confirmed with a follow-up test. For someone with known diabetes, a value <7% indicates that their diabetes is well controlled and a value greater than or equal to 7% indicates suboptimal control. A1c targets should be individualized based on duration of diabetes, age, comorbid conditions, and other considerations. Currently, no consensus exists regarding use of hemoglobin A1c for diagnosis of diabetes for children. Specimen (Source)Anatomical Location / LateralityCollection Method / Volume Collection TimeReceived Time08/08/2025 10:44 AM EDT1 10:44 AM EDT Narrative Resulting Agency Comment Performing Organization Information ?Site ID: QPT ?Name: DNS:Net [facility] ?Address: [address] [place] [address], [address] [place] [phone] ?Director: Rey Garcia MD Authorizing ProviderResult TypeResult StatusMicdanielle Guerrier NPLAB BLOOD ORDERABLESFinal ResultPerforming OrganizationAddressCity/State/ZIP CodePhone Number QUEST * Vitamin B12 (08/08/2025 10:44 AM EDT)ComponentValueRef RangeTest Method Analysis TimePerformed AtPathologist SignatureVITAMIN [id number] - 1,100 pg/mL QUESTSpecimen (Source)Anatomical Location / LateralityCollection Method / VolumeCollection TimeReceived Time08/08/2025 10:44 AM EDT1 10:44 AM EDT Narrative Resulting Agency Comment Performing Organization Information ?Site ID: QPT ?Name: DNS:Net [facility] ?Address: [address] [place] [address], [address] [place] [phone] ?Director: Rey Garcia MD Authorizing ProviderResult TypeResult StatusMichelmartin Guerrier NPLAB BLOOD ORDERABLESFinal ResultPerforming OrganizationAddressCity/State/ZIP CodePhone Number [facility]ST * (ABNORMAL) Lipid panel (08/08/2025 10:44 AM EDT)ComponentValueRef RangeTest MethodAnalysis TimePerformed AtPathologist SignatureCHOLESTEROL, OWNJY107<200 mg/dLQUESTHDL UOAKEEEJYCM00(L)> OR = 50 mg/tVYIGGDRVSAQMORMTCVZ414<150 mg/dL QUESTLDL JXOIOWUCIGZ00ij/dL (calc)QUESTComment: Reference range: <100 Desirable range <100 mg/dL for primary prevention; <70 mg/dL for patients with CHD or diabetic patients with > or = 2 CHD risk factors. LDL-C is now calculated using the Teo-Taurus calculation, which is a validated novel method providing better accuracy than the Friedewald equation in the estimation of LDL-C. Teo SS et al. GENNA. 2013;310(19): 7578-7567 (http://education.Encap.VectorLearning/faq/RXF269) CHOL/HDLC RATIO2.9<5.0 (calc)QUESTNON HDL VXHJAUXDIXU42<130 mg/dL (calc)QUEST Comment: For patients with diabetes plus 1 major ASCVD risk factor, treating to a non-HDL-C goal of <100 mg/dL (LDL-C of <70 mg/dL) is considered a therapeutic option. Specimen (Source)Anatomical Location / LateralityCollection Method / Volume Collection TimeReceived Time08/08/2025 10:44 AM EDT1 10:44 AM EDT Narrative Resulting Agency Comment Performing Organization Information ?Site ID: QPT ?Name: [facility] ?Address: [facility] [address] [place] [address] ?Director: Rey Garcia MD Authorizing ProviderResult TypeResult StatusMicdanielle Guerrier NPLAB BLOOD ORDERABLESFinal ResultPerforming OrganizationAddressCity/State/ZIP CodePhone Number QUEST * (ABNORMAL) Comprehensive metabolic panel (08/08/2025 10:44 AM EDT)Component ValueRef RangeTest MethodAnalysis TimePerformed AtPathologist SignatureGlucose 157(H)65 - 99 mg/dLQUESTComment: ? Fasting reference interval For someone without known diabetes, a glucose value >125 mg/dL indicates that they may have diabetes and this should be confirmed with a follow-up test. LAF913 - 25 mg/dLQUESTCreatinine0.710.60 - 0.95 mg/mMKGFZLTIAG19> OR = 60 mL/min/1.69s7KMEVRROJ/CREATININE RATIOSEE NOTE:6 - (calc)QUESTComment: ?? Not Reported: BUN and Creatinine are within ?? reference range. ? Bbqhog073485 - 146 mmol/LQUESTPotassium, Bld3.63.5 - 5.3 mmol/HNSPRFTtyfuhnw658 98 - 110 mmol/LQUESTCarbon Kpeszpj3142 - 32 mmol/LQUESTCalcium9.68.6 - 10.4 mg/dLQUESTPROTEIN, TOTAL6.36.1 - 8.1 g/dLQUESTALBUMIN4.33.6 - 5.1 g/dLQUEST GLOBULIN2.01.9 - 3.7 g/dL (calc)QUESTALBUMIN/GLOBULIN RATIO2.21.0 - 2.5 (calc) QUESTBILIRUBIN, TOTAL1.20.2 - 1.2 mg/dLQUESTALKALINE AWDYZMLLUIS3218 - 153 U/L CKROWFDL2842 - 35 U/LBGQXWUER489 - 29 U/LQUESTSpecimen (Source)Anatomical Location / LateralityCollection Method / VolumeCollection TimeReceived Time 08/08/2025 10:44 AM EDT1 10:44 AM EDT Narrative Resulting Agency Comment Performing Organization Information ?Site ID: QPT ?Name: [facility] ?Address: [address] [place] [address] ?Director: Rey Garcia MD Authorizing ProviderResult TypeResult StatusMichele Jamey Fareed NPLAB BLOOD ORDERABLESFinal ResultPerforming OrganizationAddressCity/State/ZIP CodePhone Number QUEST * US renal complete (08/07/2025 1:45 PM EDT)Anatomical RegionLateralityModality KidneyUltrasound Narrative Authorizing ProviderResult TypeResult StatusNoms Provider Unallocated MDIMG US PROCEDURESFinal Result * XR abdomen 1 view (08/07/2025 1:39 PM EDT)Anatomical RegionLateralityModality AbdomenRadiographic Imaging Narrative Authorizing ProviderResult TypeResult StatusNoms Provider Unallocated MDIMG XR PROCEDURESFinal Result * US RENAL BI (08/07/2025 11:43 AM EDT)Anatomical RegionLateralityModalityOther Specimen (Source)Anatomical Location / LateralityCollection Method / Volume Collection TimeReceived Time08/07/2025 11:43 AM EDT Narrative 08/07/2025 11:45 AM EDT [facility] ?[address] ? [place] [address] ? Ultrasound Report ? Signed ? Patient: CHELSEA CURRY ?MR#: [id number] ?? : 1945 ?Acct:[id number] ?? Age/Sex: 80 / F ?ADM Date: 08/07/25 ?? Loc: US ? Attending Dr: Garrett Baum M.D. ? Ordering Physician: Garrett Baum M.D. ?? Date of Service: 08/07/25 ?? Procedure(s): US renal BI ?? Accession Number(s): [id number] ? cc: JARED HEDRICK ; Garrett Baum M.D. ? [facility] ? [address] ? [place] [address] ? Patient Name: ?? CHELSEA CURRY ? MRN: [facility]:[id number] ? date: 1945 ?Sex: F ?? Assigned Patient Location: ?? Current Patient Location: ?? Accession/Order Number: [id number] ?? Exam Date: 08/07/2025 ??11:00 ?Report Date: 08/07/2025 ??11:43 ? At the request of: ?? GARRETT ??BAUM ??MD ? Procedure: ??US renal BI ? BILATERAL RENAL AND BLADDER ULTRASOUND ? CLINICAL HISTORY: ??Left flank pain. ??History of kidney stones. ? COMPARISON: ??Plain films 08/07/2025 ? Estimation of renal size is approximately 2.5 cm ??on the right and 10.5 cm on ?? the left. ??Echogenic foci with twinkle artifact are seen at both kidneys ?? suggesting potential stones. ??At the midpole on the right, it measures 5 mm. ? There are several areas on the left measuring up to 4 mm in size. ??No ?? hydronephrosis is identified. ??A cyst is visualized at the superior pole the ?? right measuring 18 x 17 x 22 mm. There is no perinephric fluid. ? The urinary bladder is poorly distended with a volume of ??17 mL. ??This limits ?? assessment. ? US/US renal BI ?? IMPRESSION: ? NO OBSTRUCTIVE UROPATHY. ? SUSPECTED BILATERAL NEPHROLITHIASIS, GREATER ON THE LEFT. ? RIGHT RENAL CYST. ? Impression dictated by: Nandini Wright M.D. ??08/07/2025 11:43 AM ? Dictation Location: [facility]- ? Electronically authenticated by: [id number] ??Y ?? Date: 08/07/2025 ??11:43 ? Dictated By: ?Nandini Wright M.D. ? Signed By: ?08/07/25 1145 ? DD/ 1143 ? TD/TT: ? Cloud Engagement Partner: Procedure Note Radiology, Radiologist, MD - 08/07/2025 [facility] [place] [id number] Ultrasound Report Signed Patient: CHELSEA CURRY LMR#: [id number] : 3Acct:[id number] Age/Sex: 80 / FADM Date: 08/07/25 Loc: US Attending Dr: Garrett Baum M.D. Ordering Physician: Garrett Baum M.D. Date of Service: 08/07/25 Procedure(s): US renal BI Accession Number(s): [id number] cc: JARED HEDRICK ; Garrett Baum M.D. [address] [address] Patient Name: CHELSEA CURRY MRN: [id number] date: 1945 Sex: F Assigned Patient Location: US Current Patient Location: US Accession/Order Number: [id number] Exam Date: 08/07/2025 11:00 Report Date: 08/07/2025 11:43 At the request of: GARRETT BAUM MD Procedure: US renal BI BILATERAL RENAL AND BLADDER ULTRASOUND CLINICAL HISTORY: Left flank pain. History of kidney stones. COMPARISON: Plain films 08/07/2025 Estimation of renal size is approximately 2.5 cm on the right and 10.5 cmon the left. Echogenic foci with twinkle artifact are seen at both kidneys suggesting potential stones. At the midpole on the right, it measures 5mm. There are several areas on the left measuring up to 4 mm in size. No hydronephrosis is identified. A cyst is visualized at the superior polethe right measuring 18 x 17 x 22 mm. There is no perinephric fluid. The urinary bladder is poorly distended with a volume of 17 mL. Thislimits assessment. US/US renal BI IMPRESSION: NO OBSTRUCTIVE UROPATHY. SUSPECTED BILATERAL NEPHROLITHIASIS, GREATER ON THE LEFT. RIGHT RENAL CYST. Impression dictated by: Nandini Wright M.D. 08/07/2025 11:43 AM Dictation Location: [place] [address] Electronically authenticated by: [id number] Y Date: 1:43 Dictated By: Nandini Wright M.D. Signed By:08/07/25 1145 DD/ 1143 TD/TT: Cloud Engagement Partner: Authorizing ProviderResult TypeResult StatusGeneric External Data Provider CLINISYNC IMAGINGFinal Result * XR ABDOMEN 1V (08/07/2025 11:40 AM EDT)Anatomical RegionLateralityModality OtherSpecimen (Source)Anatomical Location / LateralityCollection Method / VolumeCollection TimeReceived Time08/07/2025 11:40 AM EDT Narrative 08/07/2025 11:42 AM EDT [facility] ?[address] ? [place] [address] ?XRay Report ? Signed ? Patient: CURRY,CHELSEA L ?MR#: [id number] ?? : 1945 ?Acct:[id number] ?? Age/Sex: 80 / F ?ADM Date: 08/07/25 ?? Loc: US ? Attending Dr: Garrett Baum M.D. ? Ordering Physician: Garrett Baum M.D. ?? Date of Service: 08/07/25 ?? Procedure(s): XR abdomen 1V ?? Accession Number(s): [id number] ? cc: JARED HEDRICK ; Garrett Baum M.D. ? [facility] ? [address] [facility] ? [place] [address] ? Patient Name: ?? CHELSEA CURRY ? MRN: [facility]:[id number] ? date: 1945 ?Sex: F ?? Assigned Patient Location: US ?? Current Patient Location: US ?? Accession/Order Number: [id number] ?? Exam Date: 08/07/2025 ??11:05 ?Report Date: 08/07/2025 ??11:40 ? At the request of: ?? GARRETT ??CHENTE ? Procedure: ??XR abdomen 1V ? SINGLE VIEW ABDOMEN ? COMPARISON: 02/05/2025 ? CLINICAL DATA: Left flank pain. ??History of kidney stones. ? Supine views of the abdomen and pelvis were obtained. ??There is air within the ?? stomach. ??There is air and stool within the colon. ??There are no dilated small ?? bowel loops. ??The kidneys are partially obscured. ??Vascular type ?? calcifications are again seen at the left upper quadrant. ??There are also some ?? calcifications which could be renal at the upper pole. ??These are unchanged. ? There are no suspect right renal stones. ??There are pelvic phleboliths. ??No ?? soft tissue masses are seen. ??There is levoscoliotic curvature with ?? postoperative and degenerative changes in spine. ? XR/XR abdomen 1V ?? IMPRESSION: ? POSSIBLE LEFT NEPHROLITHIASIS, SIMILAR TO THE PRIOR. ? Impression dictated by: Nandini Wright M.D. ??08/07/2025 11:40 AM ? Dictation Location: [place] [address] ? Electronically authenticated by: [id number] ??Y ?? Date: 08/07/2025 ??11:40 ? Dictated By: ?Nandini Wright M.D. ? Signed By: ?08/07/25 1142 ? DD/ 1140 ? TD/TT: ? Cloud Engagement Partner: Procedure Note Radiology, Radiologist, - 08/07/2025 [place] [address] XRay Report Signed Patient: CHELSEA CURRY LMR#: [id number] : 1945cct:[id number] Age/Sex: 80 / FADM Date: 08/07/25 Loc: US Attending Dr: Garrett Baum M.D. Ordering Physician: Garrett Baum M.D. Date of Service: 08/07/25 Procedure(s): XR abdomen 1V Accession Number(s): [id number] cc: JARED HEDRICK ; Garrett Baum M.D. [facility] [place] [address] Patient Name: CHELSEA CURRY MRN: [id number] date: 1945 Sex: F Assigned Patient Location: Current Patient Location: US Accession/Order Number: [id number] Exam Date: 08/07/2025 11:05 Report Date: 08/07/2025 11:40 At the request of: GARRETT BAUM MD Procedure: XR abdomen 1V SINGLE VIEW ABDOMEN COMPARISON: 02/05/2025 CLINICAL DATA: Left flank pain. History of kidney stones. Supine views of the abdomen and pelvis were obtained. There is air withinthe stomach. There is air and stool within the colon. There are no dilatedsmall bowel loops. The kidneys are partially obscured. Vascular type calcifications are again seen at the left upper quadrant. There are alsosome calcifications which could be renal at the upper pole. These areunchanged. There are no suspect right renal stones. There are pelvic phleboliths.No soft tissue masses are seen. There is levoscoliotic curvature with postoperative and degenerative changes in spine. XR/XR abdomen 1V IMPRESSION: POSSIBLE LEFT NEPHROLITHIASIS, SIMILAR TO THE PRIOR. Impression dictated by: Nandini Wright M.D. 08/07/2025 11:40 AM Dictation Location: [place] [address] Electronically authenticated by: [id number] Y Date: 1:40 Dictated By: Nandini Wright M.D. Signed By:08/07/25 1142 DD/ 1140 TD/TT: Cloud Engagement Partner: Authorizing ProviderResult TypeResult StatusGeneric External Data Provider CLINISYNC IMAGINGFinal Result * OCT, Retina - OU - Both Eyes (07/04/2025 11:13 AM EDT)Anatomical Region LateralityModalityHeadOptical Coherence Tomography Narrative 07/04/2025 11:13 AM EDT Right Eye Quality was good. Scan locations included subfoveal. Progression has been stable. Findings include normal observations. Left Eye Quality was good. Scan locations included subfoveal. Progression has been stable. Findings include normal observations. Notes Good scan with normal appearance Authorizing ProviderResult TypeResult StatusJotitus Ballard DOOPHTH TOMOGRAPHY Edited Result - Final * Microalbumin / creatinine urine ratio (02/04/2025 9:43 AM EDT)ComponentValue Ref RangeTest MethodAnalysis TimePerformed AtPathologist SignatureCreat Ur 186.7Not Estab. mg/dLLABCORPAlbumin Ur22.1Not Estab. ug/mLLABCORPAlb/Creat Ratio Thjvn356 - 29 mg/g creatLABCORPComment: ? Normal: ?0 - ??29 ? Moderately increased: 30 - 300 Severely increased: >300 Specimen (Source)Anatomical Location / LateralityCollection Method / Volume Collection TimeReceived TimeUrineUrine specimen obtained by clean catch procedure / Qfhkkgd7702/04/2025 9:43 AM EDT02/04/2025 Narrative [facility] - 02/05/2025 11:07 AM EDT Performed at: - [facility] [address], [place], [place] [id number] Tow Driver: Derek Adair PhD, Phone: ??[phone] Authorizing ProviderResult TypeResult Brielle Hedrick MDLAB URINE ORDERABLES Final ResultPerforming OrganizationAddressCity/State/ZIP CodePhone Number [facility] * Color Fundus Photography - OU - Both Eyes (10/13/2022 12:00 PM EST)Anatomical RegionLateralityModalityHeadFundus PhotographySpecimen (Source)Anatomical Location / LateralityCollection Method / VolumeCollection TimeReceived Time 10/13/2022 12:00 PM EST Narrative 10/13/2022 12:00 PM EST PERFORMED AT [facility] LOCATION:[id number] No DM Retinopathy Procedure Note CONVERSION, GENERIC - 03/15/2023 PERFORMED AT [facility] LOCATION:[id number] No DM Retinopathy Authorizing ProviderResult TypeResult Brielle Hedrick MDOPHTH PHOTOGRAPHY Final Result from Last 3 Months or Most Recently Relevant to Health Maintenance Insurance Care Teams Team MemberRelationshipSpecialtyStart DateEnd Jared Hedrick MD [address] [place] [address] PCP - Devoted10/30/21 Jared Hedrick MD [address] [place] [address] PCP - GeneralInternal Medicine03/23/23 Gabino Ballard DO [address] [place] [address] [address] [place] [address] Referring WmwklquzqGytgfcapdevrj05/15/23 Lili Prakash, BELT CONVEYOR DRIER [address] [place] [address] Licensed Practical NurseFamily Zacbtqti25/31/24 Terrance Chacon MD [address] [place] [address] Urology01/13/25 Garrett Baum MD [address] [place] [address] Referring PhysicianUrology02/10/25
--- OUTSIDE RECORDS SUMMARY | 2025-08-22 12:21 | XMS_ITS | Encounter Summary ---
Author Organization [facility] Address [address] [place] [address] Care Team Providers Care Fur Weigher Name Role Phone Tom Kirk MD Unavailable [phone] Tom Kirk MD Primary Care Provider [phone] Gabino Ballard DO Unavailable [phone] Lili Prakash LPN Unavailable [phone] Terrance Chacon MD Unavailable Garrett Baum MD Unavailable [phone] Encounter Details DateTypeDepartmentCare Team (Latest Contact Info)Iojzwjldrgh40/10/2025External Result Encounter [facility] Unsolicited Jose Guerrier, TIMBER MILL WORKER [address] [address] Social History Tobacco UseTypesPacks/DayYears UsedDateSmoking Tobacco: NeverSmokeless Tobacco: NeverAlcohol UseStandard Drinks/WeekCommentsNever0 (1 standard drink = 0.6 oz pure alcohol)Caffeine intake: coffee, tea, popPHQ-2AnswerDate RecordedPatient Health Questionnaire-2 Cwttg269CommentsUnknownSex and Gender InformationValueDate RecordedSex Assigned at BirthNot on fileLegal SexFemale 01/11/2023 7:19 PM EDTGender IdentityNot on fileSexual OrientationNot on file OccupationIndustryJob Start DateJob End 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- Pharmacy technicianNot on fileNot on fileNot on filedocumented as of this encounter Plan of Treatment DateTypeDepartmentCare Team (Latest Contact Info)Ufufvwrlqas15/16/2026 9:45 AM EDTOffice Visit [facility] [address] [place] [phone] documented as of this encounter Procedures Procedure NamePriorityDate/TimeAssociated DiagnosisCommentsHEMOGLOBIN H9JItktsbr 08/08/2025 10:44 AM EDT VITAMIN Y63Gcnoapn09/10/2025 10:44 AM EDT LIPID ZSBYMJpvarbq20/10/2025 10:44 AM EDT COMPREHENSIVE METABOLIC HWXDWGjmrcvy22/10/2025 10:44 AM EDT documented in this encounter Results * (ABNORMAL) Hemoglobin A1c (08/08/2025 10:44 [...] Performing Organization Information ?Site ID: QPT ?Name: [facility] ?Address: [address] [place] [address], [address] [place] [phone] ?Director: Rey Garcia MD Authorizing ProviderResult TypeResult StatusMicdanielle Guerrier NPLAB BLOOD ORDERABLESFinal ResultPerforming OrganizationAddressCity/State/ZIP CodePhone Number [facility] * Vitamin B12 (08/08/2025 10:44 AM EDT)ComponentValueRef RangeTest Method Analysis TimePerformed AtPathologist SignatureVITAMIN [id number] - 1,100 pg/mL QUESTSpecimen (Source)Anatomical Location / LateralityCollection Method / VolumeCollection TimeReceived Time08/08/2025 10:44 AM EDT1 10:44 AM EDT Narrative Resulting Agency Comment Performing Organization Information ?Site ID: QPT ?Name: [facility] ?Address: [address] [place] [address], [address] [place] [phone] ?Director: Rey Garcia MD Authorizing ProviderResult TypeResult StatusMicdanielle Guerrier LAB BLOOD ORDERABLESFinal ResultPerforming OrganizationAddressCity/State/ZIP CodePhone Number [facility] * (ABNORMAL) Comprehensive metabolic panel (08/08/2025 10:44 AM EDT)Component ValueRef RangeTest MethodAnalysis TimePerformed AtPathologist SignatureGlucose 157(H)65 - 99 mg/dLQUESTComment: ? Fasting reference interval For someone without known diabetes, a glucose value >125 mg/dL indicates that they may have diabetes and this should be confirmed with a follow-up test. GYQ178 - 25 mg/dLQUESTCreatinine0.710.60 - 0.95 mg/mVJIGVMTZLG61> OR = 60 mL/min/1.25y3ZSNFTKTT/CREATININE RATIOSEE NOTE:6 - (calc)QUESTComment: ?? Not Reported: BUN and Creatinine are within ?? reference range. ? Ofzigg966232 - 146 mmol/LQUESTPotassium, Bld3.63.5 - 5.3 mmol/NTNMTJKbdhkuug224 98 - 110 mmol/LQUESTCarbon Heslibc1882 - 32 mmol/LQUESTCalcium9.68.6 - 10.4 mg/dLQUESTPROTEIN, TOTAL6.36.1 - 8.1 g/dLQUESTALBUMIN4.33.6 - 5.1 g/dLQUEST GLOBULIN2.01.9 - 3.7 g/dL (calc)QUESTALBUMIN/GLOBULIN RATIO2.21.0 - 2.5 (calc) QUESTBILIRUBIN, TOTAL1.20.2 - 1.2 mg/dLQUESTALKALINE MPVPNUIEKXX8547 - 153 U/L UXUFSNCD1556 - 35 U/TIUHUYBJQ605 - 29 U/LQUESTSpecimen (Source)Anatomical Location / LateralityCollection Method / VolumeCollection TimeReceived Time 08/08/2025 10:44 AM EDT1 10:44 AM EDT Narrative Resulting Agency Comment Performing Organization Information ?Site ID: QPT ?Name: [facility] ?Address: [address] [place] [phone] ?Director: Rey Garcia MD Authorizing ProviderResult TypeResult StatusMichelmartin Guerrier NPLAB BLOOD ORDERABLESFinal ResultPerforming OrganizationAddressCity/State/ZIP CodePhone Number [facility] * (ABNORMAL) Lipid panel (08/08/2025 10:44 AM EDT)ComponentValueRef RangeTest MethodAnalysis TimePerformed AtPathologist SignatureCHOLESTEROL, UCAMP709<200 mg/dLQUESTHDL WKYHQYJLKUJ55(L)> OR = 50 mg/zFVSTTCUXHKXDWJSUVVL448<150 mg/dL QUESTLDL OSNLJAWBZLE19ts/dL (calc)QUESTComment: Reference range: <100 Desirable range <100 mg/dL for primary prevention; <70 mg/dL for patients with CHD or diabetic patients with > or = 2 CHD risk factors. LDL-C is now calculated using the Teo-Taurus calculation, which is a validated novel method providing better accuracy than the Friedewald equation in the estimation of LDL-C. Teo RM et al. GENNA. 2013;310(19): 9143-5474 (http://education.Highlighter.com/faq/PEN575) CHOL/HDLC RATIO2.9<5.0 (calc)QUESTNON HDL WOUCAWUMEEI69<130 mg/dL (calc)QUEST Comment: For patients with diabetes plus 1 major ASCVD risk factor, treating to a non-HDL-C goal of <100 mg/dL (LDL-C of <70 mg/dL) is considered a therapeutic option. Specimen (Source)Anatomical Location / LateralityCollection Method / Volume Collection TimeReceived Time08/08/2025 10:44 AM EDT1 10:44 AM EDT Narrative Resulting Agency Comment Performing Organization Information ?Site ID: QPT ?Name: [facility] ?Address: [address] [place] [address], [address] [place] [phone] ?Director: Rey Garcia MD Authorizing ProviderResult TypeResult StatusMichelmartin Guerrier NPLAB BLOOD ORDERABLESFinal ResultPerforming OrganizationAddressCity/State/ZIP CodePhone Number [facility] documented in this encounter Visit Diagnoses Not on filedocumented in this encounter Care Teams Team MemberRelationshipSpecialtyStart DateEnd Date Tom Kirk MD [address] [place] [address] PCP - Devoted10/30/21 Tom Kirk MD [address] [place] [address] PCP - GeneralInternal Medicine03/23/23 Gabino Ballard DO [address] [place] [address] [address] [place] [address] Referring JdzplhokpJmoxstfcnqyvo28/15/23 Lili Prakash LPN [address] [place] [address] Licensed Practical NurseFamily Vvighrpo00/31/24 Terrance Chacon MD [address] [place], [place] [address] [address] Urology01/13/25 [place] [address] [place] [address] Referring PhysicianUrology02/10/25documented as of this encounter
--- OUTSIDE RECORDS SUMMARY | 2025-08-22 12:21 | XMS_ITS | Encounter Summary ---
Author Organization [facility] Address [address] [place] [address] Care Team Providers Care Delivery Clerk Name Role Phone Tom Kirk MD Primary Care Provider [phone] Encounter Details DateTypeDepartmentCare Team (Latest Contact Info)Hrlhholhdxm88/10/2025Telephone [facility] [address] [place] [address] Katia Oseguera, SKYLER Social History Tobacco UseTypesPacks/DayYears UsedDateSmoking Tobacco: NeverSmokeless Tobacco: NeverAlcohol UseStandard Drinks/WeekCommentsNever0 (1 standard drink = 0.6 oz pure alcohol)[place] Safety & EnvironmentAnswerDate RecordedFear of Current or Ex-PartnerNot on file02/02/2024Emotionally AbusedNot on file02/02/2024hysically AbusedNot on file02/02/2024Sexually AbusedNot on file02/02/2024hysically or Sexually AbusedNot on file02/02/2024CommentsNoSex and Gender Information ValueDate RecordedSex Assigned at BirthNot on fileLegal XjuMtzobe87/05/2024 7:30 AM EDTGender IdentityNot on fileSexual OrientationNot on filedocumented as of this encounter Miscellaneous Notes * Telephone Encounter - Katia Oseguera RN - 08/08/2025 9:03 AM EDT Notified patient that I have the okay for her to hold her Xarelto for 48 hours prior to her EGD scheduled on 08/15/[address] Diana Samuel. Patient verbalizes she will stop taking her Xarelto on 08/13/25. documented in this encounter Plan of Treatment Not on file documented as of this encounter Visit Diagnoses Not on filedocumented in this encounter Care Teams Team MemberRelationshipSpecialtyStart DateEnd Date Tom Kirk MD [address] [facility] [address] [place] [id number] PCP - GeneralInternal Medicine02/23/24documented as of this encounter
--- OUTSIDE RECORDS SUMMARY | 2025-08-22 12:21 | XMS_ITS | Encounter Summary ---
Author Organization [facility] Address [address] [place] [address] Care Team Providers Care Residential Sales Consultant Name Role Phone Tom Kirk MD Primary Care Provider [phone] Encounter Details DateTypeDepartmentCare Team (Latest Contact Info)Jtndmrdvjld76/10/2025Travel Social History Tobacco UseTypesPacks/DayYears UsedDateSmoking Tobacco: NeverSmokeless Tobacco: NeverAlcohol UseStandard Drinks/WeekCommentsNever0 (1 standard drink = 0.6 oz pure alcohol)[place] Safety & EnvironmentAnswerDate RecordedFear of Current or Ex-PartnerNot on file02/02/2024Emotionally AbusedNot on file02/02/2024hysically AbusedNot on file02/02/2024Sexually AbusedNot on file02/02/2024hysically or Sexually AbusedNot on file02/02/2024CommentsNoSex and Gender Information ValueDate RecordedSex Assigned at BirthNot on fileLegal QsqMteimm91/05/2024 7:30 AM EDTGender IdentityNot on fileSexual OrientationNot on filedocumented as of this encounter Plan of Treatment Not on file documented as of this encounter Visit Diagnoses Not on filedocumented in this encounter Care Teams Team MemberRelationshipSpecialtyStart DateEnd Date Tom Kirk MD [address] [place] [address] PCP - GeneralInternal Medicine02/23/24documented as of this encounter
--- OUTSIDE RECORDS SUMMARY | 2025-08-22 12:21 | XMS_ITS | Clinical Summary ---
Author Organization [facility] Address [address] [place], [place] [address] Care Team Providers Care Balance Screwhead Polisher Name Role Phone Tom Kirk MD Primary Care Provider [phone] Allergies Active AllergyReactionsCriticalityNoted DateCommentsMoxifloxacin HclDiarrhea 07/19/2012 also stomach pain RopshrchwdnyfMviivifm77/03/2419KrpddkzQpvxytvz52/03/2019Meperidine (Pf)Mental Status Qffjgz3707/19/2012 hyper Tobramycin ZnqrpwrZppx91/03/8753CthooyocvzjKhxr28/20/2012Promethazine HclHives 07/19/2012Potassium TkgouieVhie36/20/2012Phenazopyridine UdsBuxetmjh51/20/2012 also dyes, scallops,and codeine nausea also HmbnjubrUdmgbloi62/03/2019Sulfa QmouMrtz12/20/1493JqyzczlixlUxtxt49/20/2012 Tramadol ChaCcpweeas98/03/2019 Medications MedicationSigDispense QuantityRefillsLast FilledStart DateEnd DateStatus vitamin b complex Tab Indications:Calcium oxalate renal stones,Glucose intolerance (impaired glucose tolerance)Take 1 tablet by mouth once daily.ctive nabumetone 500 mg tablet Indications:Calcium oxalate renal stones,Glucose intolerance (impaired glucose tolerance)Take 1 tablet by mouth twice daily as needed.07/19/2012ctive levothyroxine (LEVOXYL) 100 mcg tablet Indications:Calcium oxalate renal stones,Glucose intolerance (impaired glucose tolerance)Take 1 tablet by mouth once daily.ctive traZODONE 50 mg tablet Indications:Calcium oxalate renal stones,Glucose intolerance (impaired glucose tolerance)Take 1 tablet by mouth daily at bedtime.ctive mometasone (NASONEX) 50 mcg/actuation nasal spray Indications:Calcium oxalate renal stones,Glucose intolerance (impaired glucose tolerance)Use 2 Sprays in the nose twice daily.07/19/2012ctive cyclobenzaprine (FLEXERIL) 10 mg tablet Indications:Calcium oxalate renal stones,Glucose intolerance (impaired glucose tolerance)Take 1 tablet by mouth every 8 hours as needed.ctive fexofenadine-pseudoephedrine (LIYAH-D) 60-120 mg per tablet Indications:Calcium oxalate renal stones,Glucose intolerance (impaired glucose tolerance)Take 1 tablet by mouth twice daily.ctive antiox #[id number]-uvx-svz-sfj-glyj (PRESERVISION AREDS 2) 250-2.5-0.5 mg cap Indications:Calcium oxalate renal stones,Glucose intolerance (impaired glucose tolerance)Take by mouth.ctive Cholecalciferol, Vitamin D3, 1,000 unit Tab Indications:Calcium oxalate renal stones,Glucose intolerance (impaired glucose tolerance)Take 1 tablet by mouth once daily.ctive omega-3 fatty acids 1,000 mg cap Indications:Calcium oxalate renal stones,Glucose intolerance (impaired glucose tolerance)1,200 mg. twice daily07/19/2012ctive simvastatin (ZOCOR) 20 mg tablet Indications:Calcium oxalate renal stones,Glucose intolerance (impaired glucose tolerance)Take 1 tablet by mouth daily at bedtime.ctive hydroCHLOROthiazide (HYDRODIURIL, ESIDRIX) 25 mg tablet Take 25 mg by mouth once daily.Active MIRTAZAPINE ORAL Take 25 mg by mouth daily at bedtime.Active acetaminophen (TYLENOL EXTRA STRENGTH) 500 mg tablet Take 500 mg by mouth as needed.Active glimepiride (AMARYL) 4 mg tablet Take 4 mg by mouth once daily.Active sitaGLIPtin (JANUVIA) 100 mg tablet Take 100 mg by mouth once daily.Active citalopram hydrobromide (CELEXA) 10 mg tablet Take 10 mg by mouth once daily.Active Active Problems ProblemNoted DateDiagnosed DateGall bladder qwivgi2703/01/2019Cavus deformity of foot09/01/2015Equinus deformity of foot09/01/2015Glucose intolerance (impaired glucose tolerance)07/19/20126964Kyrtrhmdeqo93/20/2012 Assessment & Plan (03/01/2019 12:47 PM EDT): Assessment: on medication Calcium oxalate renal eudjgu3507/19/2012DM (diabetes mellitus) Assessment & Plan (03/01/2019 12:47 PM EDT): Assessment: on oral agents, most recent HgA1C 8.1 Hiatal hernia Social History Tobacco UseTypesPacks/DayYears UsedDateSmoking Tobacco: NeverSmokeless Tobacco: NeverAlcohol UseStandard Drinks/WeekCommentsYes0 (1 standard drink = 0.6 oz pure alcohol)Area Deprivation IndexAnswerDate RecordedNational Score (1-100), lower number is lower riskNot on file10/07/2020State Score (1-10), lower number is lower riskNot on file10/07/2020Data from: https://www.neighborhoodatlas.medicine.[facility].edu/. Last address used for calculationNot on file10/07/2020CommentsNoSex and Gender Information ValueDate RecordedSex Assigned at BirthNot on fileLegal QcjVpyfjj70/02/2012 10:05 AM ESTGender IdentityNot on fileSexual OrientationNot on file Last Filed Vital Signs Vital SignReadingTime TakenCommentsBlood Deuyjdpd177/6204 11:07 AM EDT Gqrrp1678 11:39 AM GPRPgqyovlnspr63.9 ??C (98.5 ??F)03/01/2019 11:39 AM EDTRespiratory Fvky1234 11:39 AM EDTOxygen Qirfwrkzcz84%03/01/2019 11:39 AM EDTInhaled Oxygen Concentration--Tlnhxa04.6 kg (164 lb 8 oz)03/01/2019 11:39 AM XIMPspnbh519.1 cm (5' 5 )03/01/2019 11:39 AM EDTBody Mass Index27.37 03/01/2019 11:39 AM EDT Plan of Treatment Health MaintenanceDue DateLast DoneCommentsAnxiety Sighdnpdu41/29/1961Depression Ukapyxaek90/29/1961DTaP,Tdap,Td Vaccine (1 - Tdap)2Pneumococcal Vaccine: 50+ (1 of 1 - PCV)1993Shingrix Vaccine (1 of 2)1993Bone Density Xnefnibon40/29/2008RSV Vaccine (1 - 1-dose 75+ series)2018Diabetes Wvednvigf26Advance Directive Zngdfvnfyl47/01/2025Covid-19 Vaccine (1 - 2024- season)2025Influenza Vaccine (#1)2025 07/12/2018, 07/19/2017 Procedures Procedure NamePriorityDate/TimeAssociated DiagnosisCommentsCOMPREHENSIVE METABOLIC PEXPYYehraya56/03/2019 1:06 PM EDT Full incontinence of feces from Last 3 Months or Most Recently Relevant to Health Maintenance Results * (ABNORMAL) COMP METABOLIC PANEL (03/01/2019 1:06 PM EDT)ComponentValueRef RangeTest MethodAnalysis TimePerformed AtPathologist SignatureProtein, Total 7.06.3 - 8.0 g/dL03/01/2019 7:14 PM EDTCleveland Clinic LaboratoriesAlbumin4.4 3.9 - 4.9 g/dL03/01/2019 7:14 PM EDTCleveland Clinic LaboratoriesCalcium9.88.5 - 10.2 mg/dL03/01/2019 7:14 PM EDTCleveland Clinic LaboratoriesBilirubin, Total0.80.2 - 1.3 mg/dL03/01/2019 7:14 PM EDTCleveland Clinic Laboratories Alkaline Lmvdamdjvzq3161 - 123 U/L03/01/2019 7:14 PM [facility]TC[facility] ZynrgyyahbijZZQ5505 - 35 U/L03/01/2019 7:14 PM [facility]TC[facility] LgmykdugunpgQtddihj118(H)74 - 99 mg/dL03/01/2019 7:14 PM EDTCleveland Clinic LaboratoriesComment: The [place] Diabetes Association (ADA) provides guidance for cutoff values for fasting glucose and random glucose. The ADA defines fasting as no caloric intake for at least 8 hours. Fasting plasma glucose results between 100 to 125 mg/dL indicate increased risk for diabetes (prediabetes). Fasting plasma glucose results greater than or equal to 126 mg/dL meet the criteria for diagnosis of diabetes. In the absence of unequivocal hyperglycemia, results should be confirmed by repeat testing. In a patient with classic symptoms of hyperglycemia or hyperglycemic crisis, random plasma glucose results greater than or equal to 200 mg/dL meet the criteria for diagnosis of diabetes. Reference: Standards of Medical Care in Diabetes 2016, [place] Diabetes Association. Diabetes Care. 2016.39(Suppl 1). YRE019 - 21 mg/dL03/01/2019 7:14 PM [facility] LaboratoriesCreatinine 0.710.58 - 0.96 mg/dL03/01/2019 7:14 PM [facility] LaboratoriesSodium 297001 - 144 mmol/L03/01/2019 7:14 PM [facility] LaboratoriesPotassium 3.93.7 - 5.1 mmol/L03/01/2019 7:14 PM [facility] IibbngezxovoZhhxnbgz30 97 - 105 mmol/L03/01/2019 7:14 PM [facility] JytqppkzotxsOC36778 - 30 mmol/L03/01/2019 7:14 PM [facility] LaboratoriesAnion Uek784 - 18 mmol/L03/01/2019 7:14 PM [facility] MjwzmigrxradRJO890 - 38 U/L 03/01/2019 7:14 PM [facility] LaboratorieseGFR->60 03/01/2019 7:14 PM [facility] LaboratorieseGFR-All Other Races>60. 03/01/2019 7:14 PM [facility] LaboratoriesComment: eGFR (Estimated GFR) Units of measure: mL/min/1.73 meters squared eGFR is derived from the reexpressed MDRD Study equation using the following parameters: serum creatinine, age, gender and race. The creatinine assay has been calibrated to be traceable to IDMS. An eGFR <60 mL/min/1.73m2 for >3 months is consistent with chronic kidney disease. Refer to KDOQI guidelines for clinical interpretation. In patients with unstable renal function, e.g. those with acute kidney injury, the eGFR may not accurately reflect actual GFR. Specimen (Source)Anatomical Location / LateralityCollection Method / Volume Collection TimeReceived TimeBlood specimen (specimen)BLOOD SPECIMEN / Unknown 03/01/2019 1:06 PM EDT03/01/2019 1:10 PM EDT Narrative Authorizing ProviderResult TypeResult StatusJames Sheppard MDLABORATORY Final ResultPerforming OrganizationAddressCity/State/ZIP CodePhone Number [facility] [address] [place] [address] [facility] [address] [place] [address] from Last 3 Months or Most Recently Relevant to Health Maintenance Insurance Care Teams Team MemberRelationshipSpecialtyStart DateEnd Tom Waite MD [address] [place] [address] PCP - [facility] Centernal Medicine04/20/12
--- OUTSIDE RECORDS SUMMARY | 2025-08-22 12:21 | XMS_ITS | Clinical Summary ---
Author Organization [facility] Address [address] [place] [address] Care Team Providers Care Manager Research And Development Name Role Phone Tom Kirk MD Primary Care Provider [phone] Allergies Active AllergyReactionsCriticalityNoted DateCommentsCiprofloxacinDiarrhea 04/07/2015 Other reaction(s): Unknown CodeineNausea KwimUox0803/01/2019 Other reaction(s): Nausea, Vomiting Iodinated Contrast Media04/29/2021 Other reaction(s): Flushing TxhswfisopCqhktugVsn21/09/2015 Other reaction(s): hyper, Unknown AaseaxtolvXvxgGby69/13/1042OddlfoqglhePgrlNwc85/20/2012PhenazopyridineGI mnfmliefaksRyb23/20/2012 Other reaction(s): Nausea, Vomiting also dyes, scallops,and codeine nausea also PromethazineHives,Fgdnpfi3107/19/2012 Other reaction(s): AOF, Other Zfgamqzve44/09/2015 Other reaction(s): Unknown Shellfish Containing PngywusgPgtbl25/09/2015 Scallops only Sulfa (Sulfonamide Antibiotics)DhcnNoj9604/29/20213273Wlyjdncaliphm78/09/2015 Other reaction(s): Unknown, Unknown Reaction TobramycinHives,ZjzuExw2607/19/2012 Other reaction(s): Nausea Medications MedicationSigDispense QuantityRefillsLast FilledStart DateEnd DateStatus citalopram (CeleXA) 10 mg tablet 1 (one) time each day at the same time.06/28/2018Active hydroCHLOROthiazide (HYDRODiuril) 25 mg tablet Take 25 mg by mouth in the morning.06/28/2018Active levothyroxine (LevoxyL) 88 mcg tablet Take 88 mcg by mouth before breakfast.08/30/2023ctive mirtazapine (Remeron) 15 mg tablet Take 15 mg by mouth at bedtime.06/28/2018Active pantoprazole (ProtoNix) 40 mg EC tablet Take 40 mg by mouth.01/17/2024ctive vit A/vit C/vit E/zinc/copper (PRESERVISION AREDS ORAL) See Instructions, Refill(s) 0, Hldslqikcjw66/13/2023ctive semaglutide (Rybelsus) 7 mg tablet Take 14 mg by mouth in the morning.01/17/2024ctive simvastatin (Zocor) 20 mg tablet TAKE 1 TABLET IN THE EVENING MONDAY, MONDAY, AND NXDWSY4907/19/2012ctive rivaroxaban (Xarelto) 20 mg tablet Take 10 mg by mouth in the morning.01/03/2020Active cholecalciferol (Vitamin D-3) 25 MCG (1000 units) tablet Take 1,000 Units by mouth in the morning.07/19/2012ctive multivitamin tablet Take 1 tablet by mouth in the morning.Active Encounters DateTypeDepartmentCare YxhxLmnrkzmrwlt61/10/8202Pwivam10/10/2025Telephone [facility] [address] [place] [phone] Katia Oseguera RN from Last 3 Months Social History Tobacco UseTypesPacks/DayYears UsedDateSmoking Tobacco: NeverSmokeless Tobacco: NeverAlcohol UseStandard Drinks/WeekCommentsNever0 (1 standard drink = 0.6 oz pure alcohol)MD Safety & EnvironmentAnswerDate RecordedFear of Current or Ex-PartnerNot on file02/02/2024Emotionally AbusedNot on file02/02/2024hysically AbusedNot on file02/02/2024Sexually AbusedNot on file02/02/2024hysically or Sexually AbusedNot on file02/02/2024CommentsNoSex and Gender Information ValueDate RecordedSex Assigned at BirthNot on fileLegal QqwUqbase88/05/2024 7:30 AM EDTGender IdentityNot on fileSexual OrientationNot on file Last Filed Vital Signs Vital SignReadingTime TakenCommentsBlood Fpuaqkbc687/5704 1:40 PM EDT Xexfi9006 1:40 PM NCJBicctnpyfrr94 ??C (96.8 ??F)02/23/2024 1:10 PM EDT Respiratory Uchn6735 1:40 PM EDTOxygen Lsqhlscxpi35%02/23/2024 1:55 PM EDTInhaled Oxygen Concentration--Yajhuh91.8 kg (149 lb 7.6 oz)02/23/2024 10:23 AM MBHHiluwv430.6 cm (5' 4 )02/23/2024 10:23 AM EDTBody Mass Index25.66 02/23/2024 10:23 AM EDT Plan of Treatment Health MaintenanceDue DateLast DoneCommentsMedicare Annual Wellness (AWV) 1943iabetes: Retinopathy Aofgoaauw80/29/1953epression Screening 1955dult Lenjcnz8106/27/1965Fall Risk Fjjodavyj83/29/2008Pneumococcal Vaccine: 50+ Years (3 of 3 - PCV20 or PCV21)/, 10/30/2007 COVID-19 Vaccine (6 - season)/, 08/27/2022, 08/04/2021, Additional history existsInfluenza Vaccine (#1)/04/2024, 07/11/2023, 08/11/2022, Additional history existsDiabetes: Hemoglobin A1C /07/2025Diabetes: Urine Protein Jeegldxyi16/05/2025, 01/10/2024Zoster SgesrsdwWvnsmqbrb85/03/2022, 05/27/2021, 10/30/2011HIB Vaccines Aged OutNo longer eligible based on patient's age to complete this topicHPV VaccinesAged OutNo longer eligible based on patient's age to complete this topic IPV VaccinesAged OutNo longer eligible based on patient's age to complete this topicMeningococcal B VaccineAged OutNo longer eligible based on patient's age to complete this topicMeningococcal VaccineAged OutNo longer eligible based on patient's age to complete this topicRotavirus VaccinesAged OutNo longer eligible based on patient's age to complete this topic Insurance Care Teams Team MemberRelationshipSpecialtyStart DateEnd Tom Kirk MD [address] [facility] [address] [place] [address] PCP - GeneralInternal Medicine02/23/24
--- OUTSIDE RECORDS SUMMARY | 2025-08-22 12:21 | XMS_ITS | Clinical Summary ---
Author Organization [facility] Address [id number] [place] [address] Care Team Providers Care Rehab Nurse Name Role Phone Unavailable Primary Care Provider Unavailabl e Social History Tobacco UseTypesPacks/DayYears UsedDateSmoking Tobacco: Never AssessedChildcare AnswerDate UflytahmVlsvryzbmVganrio80/06/2019EmploymentAnswerDate Recorded FxhhacenidPrtyspz04/06/2019Purpose - LifeAnswerDate RecordedPurpose and direction in fporErtdltp20/11/2021CommentsUnknownSex and Gender InformationValueDate RecordedSex Assigned at BirthNot on fileLegal SexFemale 06/04/2015 11:50 AM EDTGender IdentityNot on fileSexual OrientationNot on file Plan of Treatment Not on file Medical Devices Not on file Insurance
--- OUTSIDE RECORDS SUMMARY | 2025-08-22 12:24 | XMS_ITS | CCD ---
Author Organization [facility] Care Team Providers Care Joint Maker Machine Name Role Phone MD Jared Hedrick Primary [...] Consulting Unavailable JARED HEDRICK Primary Care Physician LOVE PATEL Attending Unavailable PCP, UNKNOWN Primary Care Unavailable Dulce Holguin Attending Unavailable Abbie Mayorga A. Attending Unavailable ÁNGELA JUAREZ Attending Unavailable Rashida ELDRIDGE Attending Unavailable Rashida ELDRIDGE Referring Unavailable ÁNGELA JUAREZ Attending Unavailable Mouchli, Mohamad ALuis Alberto Attending Unavailable Mouchli, Mohamad ALuis Alberto Referring Unavailable Mouchli, Mohamad ALuis Alberto Admitting Unavailable ÁNGELA JUAREZ Admitting Unavailable ÁNGELA JUAREZ Attending Unavailable Mukesh, Mohamad ALuis Alberto Attending Unavailable Lisa Dumont Attending Unavailable Jared Hedrick MD Unavailable Jared Hedrick MD Primary Care Provider [phone] Karen HOLLAND, Naye Unavailable Mayuri Brown DO Unavailable [phone] Rashida Eldridge MD Unavailable [phone] Bacilio Mayen Admitting Unavailable Bacilio Mayen Attending Unavailable NKTEJAL-AMKACIERA, HANNAH Attending Unavail able MD Mart Luna [...] Unavailable COOK, Juan Alberto P Consulting Unavailable Mart Luna Admitting Unavailable Mart Luna Attending Unavailable COOKMD Juan Alberto P Consulting Unavailable COOK, Juan [...] Unavail able NKANSAH-AMANKRA, HANNAH Admitting Unavail able MD Mart Luna Admitting Unavaila ble MD Mart Luna Attending Unavaila ble NKANSAH-AMANKRA, HANNAH Attending Unavail able NKANSAH-AMANKRA, HANNAH Admitting Unavail able Lisa Dumont Attending Unavailable Prakash EMAIL MARKETING PROCESSOR, Lili Unavailable [phone] Hannah Chacon MD Unavailable Rashida Eldridge MD Unavailable NKANSAH-AMANKRA, HANNAH Admitting Unavail able NKANSAH-AMANKRA, HANNAH Attending Unavail able NKANSAH-AMANKRA, HANNAH Referring Unavail able Prakash EMAIL MARKETING PROCESSOR, Lili Unavailable MD HANNAH CHACON Attending Unav ailable Abbie Mayorga Attending Unavailable MD HANNAH CHACON Attending Unav ailable Rashida ELDRIDGE Attending Unavailable Maria Esther Sharp Attending Unavailable Rashida ELDRIDGE Attending Unavailable MD HANNAH CHACON Attending Unav ailable ANA, MD YOUNG Admitting Unav ailable MD HANNAH CHACON Attending Unav ailable MD HANNAH CHACON Admitting Unav ailable MD HANNAH CHACON Referring Unav ailable MD HANNAH CHACON Attending Unav ailable Rashida Eldridge MD Unavailable [phone] Jared Hedrick MD Primary Care Provider Ryan SILVER, Bethanie Concepcion Attending Provider JOSE LIAO Attending Unavailable JOSE LIAO Referring Unavailable MAYURI BROWN Attending Unavailable Allergies Allergy ClassificationReported Allergen(s)Allergy TypeDate of OnsetReaction(s) Facility (20 sources)Ciprofloxacin; Translations: [ciprofloxacin]Drug Awnqqbk53-65-8330 Diarrhea, [facility] (3 sources)ClindamycinDrug Fcwogzg94-56-2843YesbpdbqWlpefpovnAdena [facility] (20 sources)Codeine; Translations: [Codeine]Drug Dtueruc20-67-9737Ighpmk Only [facility] (3 sources)levoFLOXacinDrug Ubqvzjb15-62-1963AvkywfqGrant [facility] (20 sources)Meperidine; Translations: [meperidine]Drug Tuvhhnc34-33-5822StyabcoSt. [facility] (20 sources)moxifloxacin; Translations: [moxifloxacin]Drug Rrusudc66-62-8070 Diarrhea, [facility] (20 sources)Penicillins; Translations: [Penicillins]Allergy to substance 92-08-1386GqzdMiyuackdcKettering Health [facility] (20 sources)Phenazopyridine; Translations: [phenazopyridine]Drug Allergy 79-71-0021XA intoleranceOhiohealth O'Bleness Hospital (20 sources)Promethazine; Translations: [promethazine]Drug Fxvwltv07-41-2053 Itching, OtherOhiohealth O'Bleness Hospital (3 sources)Scallop - dietaryAllergy to qhedxnttj40-21-6244CdnxmUlvpfhjza [facility] (3 sources)Sulfonamides (Antibiotic)Allergy to roldtqpop49-70-9968PgsjUngtpgtyzOhiohealth O'Bleness Hospital (20 sources)telithromycin; Translations: [telithromycin]Drug Cpkqnft57-50-5000 Unknown Reaction, UnknownOhiohealth O'Bleness Hospital (20 sources)Tobramycin; Translations: [tobramycin]Drug Vnsglyu26-12-4619Fxojn [facility] (20 sources)traMADol; Translations: [tramadol]Drug Mrqvvzf14-29-0259TI intoleranceOhiohealth O'Bleness Hospital (3 sources)Iodinated Contrast MediaPropensity to adverse fmuwrhvdy20-73-5245 FlushingOhiohealth O'[facility] (3 sources)avaloxAllergy to qwnbhtafl27-88-7551Iqagkas ReactionOhiohealth O'Bleness Hospital (3 sources)phendzopyridineAllergy to iehpdezuq79-57-3932Jxqgtxb Reaction [facility] (3 sources)uricetAllergy to wmueyndfy46-71-4973Igifvho ReactionOhiohealth O'Bleness Hospital (2 sources)CodeineDrug AllergyUnkOsteopathic [facility] Other (2 sources)Sulfacetamide / SulfurDrug AllergyUnkOsteopathic Hospital of [facility] Other (4 sources)Dye HALF-WAY Green 3Drug ktmyuxz66-20-4417Slfkisq, Unknown Reaction [facility] (2 sources)Penicillian V PotassiumPropensity to adverse reactionsMemorial Hospital of [facility] Other (2 sources)Dye HALF-WAY Blue 1Drug allergyMemorial Hospital of [facility] Other (2 sources)Dye HALF-WAY Yellow 6Drug allergyMemorial Hospital of [facility] Other (2 sources)Dye HALF-WAY Red 40 (Allura Red)Drug allergyUnknownNorth [employer] Other (1 source)CiprofloxacinDrug Zhflmas53-83-8899NlaPromedica Flower [facility] (11 sources)Meperidine; Translations: [Demerol]Drug Iwfwwmp92-40-3122TvqPromedica Flower [facility] (1 source)moxifloxacinDrug Jfnbbly73-47-4585ApgPromedica Flower Hospital [facility] (1 source)potassium citrateDrug Kloctji25-24-0433JbfPromedica Flower Hospital [facility] (1 source)ProtaminesDrug Uhdtchd43-33-8010WquPromedica Flower [facility] (20 sources)Shellfish; Translations: [shellfish]Drug allergy (disorder) 31-99-9430NtyeyhqKif [facility] (1 source)Sulfonamides (Antibiotic)Drug allergy (disorder)89-29-8241FnvPromedica Flower Hospital [facility] (11 sources)telithromycin; Translations: [Ketek]Drug Osvlxtw87-87-1797AiyPromedica Flower Hospital [facility] (20 sources)Nalbuphine; Translations: [nalbuphine]Drug Smwvvij32-50-3644PodqUniversity [facility]als [facility] (20 sources)potassium citrate; Translations: [potassium citrate]Drug Allergy 05-63-9066SnvelnmCcrwfsqey [facility] (20 sources)Protamine Sulfate (CUSTODIAL); Translations: [protamine]Drug Allergy 66-15-8282NipcsaqCtuplfrjb [facility] (2 sources)Shellfish; Translations: [shellfish]Propensity to adverse reactions to cuicpxpdl52-99-8045MyppnpcSjbucdlht [facility] (20 sources)Sulfonamides (Antibiotic); Translations: [sulfa drugs]Drug allergy Eruption of skin (disorder)[facility] (20 sources)iodinated radiocontrast dyes; Translations: [iodinated radiocontrast agents]Drug allergyNaMercy Hospital (10 sources)Phenazopyridine; Translations: [Pyridium]Drug AllergyPromedica Defiance [facility] (10 sources)Promethazine; Translations: [Phenergan]Drug AllergyPromedica Defiance [facility] (14 sources)ClarithromycinPropensity to adverse perfkoxnp12-06-3063WZNemours Foundation (14 sources)meloxicamDrug Qupnnri71-68-6963QH intoleranceNOGA Healthcare (14 sources)metFORMINDrug Dfmtqof38-35-3072NZ intoleranceNOSSM [facility] (14 sources)Penicillin GDrug Vxycxyy04-81-8588CbgoRKGP Healthcare (14 sources)ShellfishPropensity to adverse jigkceamw31-27-3847FnrbmIUNO Healthcare (14 sources)Sulfonamides (Antibiotic)Drug Dibgeef83-43-0435MsmuLFIH Healthcare (2 sources)Contrast mediaAllergy to gbpcvbqoj04-78-1508Acvkhwt ReactionOhiohealth O'Bleness Hospital (2 sources)PenicillinDrug Hlbctmo19-84-5211Hlbkvrl ReactionOhiohealth O'Bleness Hospital (2 sources)SulfacetamideDrug Xeqydyj64-26-7007Oapnozt ReactionOhiohealth O'Bleness Hospital (2 sources)SulfurDrug Ppktuzv93-17-8314Jzomxpi ReactionOhiohealth O'Bleness Hospital (2 sources)blue dyeAllergy to -68-7443Ontoygx ReactionOhiohealth O'Bleness Hospital (2 sources)yellow dyeAllergy to ngafztkkq75-21-7594Minxhoe ReactionOhiohealth O'Bleness Hospital Medications Current Medications MedicationDrug Class(es)DatesSig (Normalized)Sig (Original)acetaminophen 325 mg oral tablet (20 sources)Start: 74-12-3038qqaw 2 tablets by mouth every eight hours as needed for painacetaminophen 325 mg Tab 650 mg = 2 tab(s), Oral, q8hr, PRN Pain, Refills(s) 0 Start Date: 08/10/24Status: Ordered Repeat number: 1Start: 58-87-4457sbjc 1 tablet by mouth every six hours as needed for painAcetaminophen (Tylenol Extra Strength) 500 mg Tablet Active 500 MG PO Q6H as needed for Pain 2017 12:00am Complies with drug therapyascorbic acid 113 mg / copper gluconate 0.4 mg / docosahexaenoic acid 87.5 mg / eicosapentaenoic acid 163 mg / lutein 2.5 mg / tocopherol acetate 100 unt / zeaxanthin 0.5 mg / zinc oxide 17.4 mg oralcapsule (14 sources)Vitamin CMultiple Vitamins-Minerals (PreserVision AREDS 2) capsule 1 capsule Activeatropine sulfate 0.025 mg / diphenoxylate hydrochloride 2.5 mg oral tablet (14 sources)Anticholinergic, Cholinergic Muscarinic Antagonist, Antidiarrheal diphenoxylate-atropine (Lomotil) 2.5-0.025 MG tablet Take 1 tablet by mouth as needed in the morning and 1 tablet as needed at noon and 1 tablet as needed in the evening and 1 tablet as needed beforebedtime for diarrhea. Activetake 1 tablet by mouth four times daily as needed for diarrheadiphenoxylate-atropine (Lomotil) 2.5-0.025 MG tablet Take 1 tablet by mouth 4 (four) times a day as needed for diarrhea. Activebifidobacterium infantis 4 mg oral capsule (7 sources)Start: 48-04-6963zmrv 1 capsule by mouth once dailyAlign 4 mg oral capsule 4 mg = 1 cap(s), Oral, Daily, # 28 cap(s), Refills(s) 4, Pharmacy: [facility]/pharmacy #[id number], 162, cm, 04/18/24 9:43:00 EDT, Height/Length Dosing, 66, kg, 04/18/24 9:43:00 EDT, Weight Dosing Start Date: 04/18/24 Status: OrderedBlood Glucose Monitoring Suppl (OneTouch Verio Flex System) w/Device kit (14 sources)Start: 38-54-6832Eausl Glucose Monitoring Suppl (OneTouch Verio Flex System) w/Device kit Indications: Type 2 diabetes mellitus with diabetic neuropathy, without long-term current use of insulin ([facility]) 1 Device Daily 1 kit 01/20/2025 ActiveStart: 98-84-9616Rdxcz Glucose Monitoring Suppl (OneTouch Verio Flex System) w/Device kit Indications: Type 2 diabetes mellitus with diabetic neuropathy, without long-term current use of insulin ([facility]) 1 Device Daily 1 kit 01/20/2025 ActiveStart: 54-31-9073Fkjyb Glucose Monitoring Suppl (OneTouch Verio Flex System) w/Device kit 10/19/2022 Activecefdinir 300 mg oral capsule (2 sources)Cephalosporin AntibacterialStart: 08-10-2024 End: 21-75-2512ildb 1 capsule by mouth every twelve hourscefdinir 300 mg Cap 300 mg = 1 cap(s), Oral, q12hr, X 5 day(s), # 10 cap(s), Refills(s) 0, Pharmacy: [facility]/pharmacy #[id number], 165, cm, 08/09/24 8:35:00 EDT, Height/Length Dosing, 63.4, kg, 08/09/24 8:35:00 EDT, Weight Dosing Start Date: 08/10/24 Stop Date: 08/15/24 Status: Orderedcholecalciferol 0.05 mg oral capsule (9 sources)Vitamin DStart: 68-37-0091ckpj 1 capsule by mouth once daily Cholecalciferol (Vitamin D3) (Vitamin D3) 2,000 unit Capsule Active 2000 UNIT PO Daily November 09, 2018 1:00am Complies with drug therapy End: 95-88-6342ctkk 1 capsule by mouth once dailycholecalciferol 125 MCG (5000 UT) capsule Take 1 capsule by mouth Daily 02/10/2025 Discontinuedcholestyramine resin 4000 mg powder for oral suspension (6 sources)Bile Acid Sequestrant End: 25-46-7918ggxp 4 g by mouth three times daily at mealtimecholestyramine (Questran) 4 GM/DOSE powder Take by mouth 3 (three) times a day with meals 02/10/2025 Discontinuedcitalopram 20 mg oral tablet (20 sources)Serotonin Reuptake InhibitorStart: 94-52-6258ptab 1 tablet by mouth once dailycitalopram (CeleXA) 20 MG tablet Indications: Generalized anxiety disorder Take 1 tablet (20 mg) bymouth Daily 90 tablet 2 02/10/2025 ActiveStart: 06-28-2018 End: 89-65-4129rvxe 1 tablet by mouth once dailyCitalopram 10 mg Tablet Active 10 MG PO Daily June 28, 2018 12:00am Complies with drug therapyclobetasol propionate 0.0005 mg/mg topical ointment (16 sources)CorticosteroidStart: 77-67-5596uglsf 30 g topically every twelve hours as needed for painclobetasol propionate 0.05% top oint See Instructions, 30 gm, Refill(s) 2, Apply to affected area every 12 hours as needed for pain/discomfort., [id number], 165, cm, 12/12/22 13:46:00 EST, H eight/Length Dosing, 70.4, kg, 12/12/22 13:46:00 EST, Weight Dosing Start Date: 12/12/22 Status: Ordered End: 52-00-8688qblufkkmsz (Temovate) 0.05 % cream 1 application every 12 (twelve) hours 02/10/2025 Discontinuedcolesevelam hydrochloride 625 mg oral tablet (4 sources)Bile Acid SequestrantStart: 45-35-9536vhjh 3 tablets by mouth twice dailyWelchol 625 mg Tab 1,875 mg = 3 tab(s), Oral, BID, # 180 tab(s), Refills(s) 3, Pharmacy: [facility]/pharmacy #[id number], 162, cm, 04/18/24 9:43:00 EDT, Height/Length Dosing, 66, kg, 04/18/24 9:43:00 EDT, Weight Dosing Start Date: 04/18/24 Status: Orderedcyclobenzaprine hydrochloride 10 mg oral tablet (2 sources)Muscle Relaxanttake 0.5-1 tablets by mouth three times daily as neededCyclobenzaprine HCl 10 MG TAKE 1/2-1 TABLET BY MOUTH 3 TIMES A DAY NEEDED Oral for 30 ActiveColace (10 sources)Start: 64-56-8246irna 20 mg by mouth once dailyColace 20 mg, Oral, Daily, Refills(s) 0 Start Date: 08/09/24 Status: OrderedStart: 43-86-6966eucy 1 capsule by mouth twice dailyDocusate Sodium (Colace) 100 mg capsule Active 100 MG PO Twice daily 60 30 April 29, 2021 12:00am Complies with drug therapy doxycycline monohydrate 100 mg oral tablet (2 sources)Tetracycline-class DrugStart: 35-31-3801dvtzzlhwumt monohydrate 100 mg oral tablet Refills(s) 0 Start Date: 04/18/24 Status: OrderedStart: 12-12-2022 take 1 capsule by mouth once dailydoxycycline hyclate 100 mg Cap 100 mg = 1 cap(s), Oral, Daily, Take 1 pill the day before the procedure and 1 pill after the procedure, # 2 cap(s), Refills(s) 0, Pharmacy: [id number], 165, c m, 12/12/22 13:46:00 EST, Height/Length Dosing, 70.4, kg, 12/12/22 13:46:00 Veronica OMALLEY. Start Date: 12/12/22 Status: Orderedempagliflozin 25 mg / linagliptin 5 mg oral tablet (4 sources)Dipeptidyl Peptidase 4 Inhibitor, Sodium-Glucose Cotransporter 2 InhibitorStart: 39-69-4113exsj 1 tablet by mouth once dailyEmpagliflozin- Linagliptin (Glyxambi) 25-5 mg Tablet Active 1 TAB PO Daily April 25, 2021 12:00am Complies with drug jppgxyg84 hr fexofenadine hydrochloride 60 mg / pseudoephedrine hydrochloride 120 mg extended release oraltablet (3 sources)alpha-Adrenergic Agonist, Histamine-1 Receptor AntagonistStart: 01-86-6168wpfm 1 tablet by mouth every twelve hours as needed, then take 1 tablet by mouth every twelve hoursas neededFexofenadine-Pseudoephedrine ([place]dee-D 12 Hour) 60-120 mg Tablet Extended Release 12 Hr Active 1 TAB PO Q12H as needed for Allergy Symptoms June 28, 2018 12:00am Complies with drug therapyFish Oils (2 sources)take 1 capsule by mouth once dailyFish Oil 1200 MG 1 capsule Orally Once a day for 30 day(s) Activeglimepiride 4 mg oral tablet (14 sources)SulfonylureaStart: 54-96-4617lial 1 tablet by mouth once daily Glimepiride 4 mg Tablet Active 4 MG PO Daily June 28, 2018 12:00am Complies with drug therapytake 2 tablets by mouth every twenty-four hoursGlimepiride 4 MG 2 tablets Orally Once a day ActiveGlyxamb1 25/5 mg 25/5 mg (2 sources)Glyxamb1 25/5 mg 25/5 mg 90 orally daily ActivehydroCHLOROthiazide 25 mg oral tablet (20 sources)Thiazide DiureticStart: 06-28-2018 End: 31-58-4895hzde 1 tablet by mouth once dailyHydrochlorothiazide 25 mg Tablet Active 25 MG PO Daily June 28, 2018 12:00am Complies with drugtherapy levothyroxine sodium 0.088 mg oral tablet (20 sources)l-ThyroxineStart: 08-30-2023 End: 64-37-8380xegw 1 tablet by mouth before mealtimelevothyroxine (Levoxyl) 88 MCG tablet Indications: Acquired hypothyroidism Take 1 tablet (88 mcg) by mouth in the morning. Take before meals. 90 tablet 3 08/05/2024 ActiveStart: 97-16-4965hvok 88 ug by mouth once dailylevothyroxine 88 mcg, Oral, Daily, Refills(s) 0, Thyroid Start Date: 02/04/19 Status: Ordered Repeat number: 1Start: 38-77-1268vefg 88 ug by mouth once dailylevothyroxine 88 mcg, Oral, Daily, Refills(s) 0, Thyroid Start Date: 02/04/19 Status: OrderedStart: 02-04-2019 levothyroxine 100 microgram, Oral, Daily, Refills(s) 0, Thyroid Start Date: 02/04/19 Status: OrderedStart: 92-28-5227Nxhdjhlskgjwf 100 mcg Capsule Active 88 MCG PO Daily June 28, 2018 12:00am Complies with drug therapyStart: 14-94-9256tovh 88 ug by mouth once dailyLevothyroxine Active 88 MCG PO Daily June 28, 2018 12:00amStart: 06-28-2018 End: 43-35-1772dzrp 1 tablet by mouth once dailyLevothyroxine (Levoxyl) 100 mcg Tablet Discontinued 100 MCG PO Daily June 28, 2018 12:00am November 09, 2018 4:52pmtake 1 tablet by mouth once daily in the morningLevothyroxine Sodium 100 MCG 1 tablet on an empty stomach in the morning Orally Once a day Active linaclotide 0.072 mg oral capsule (20 sources)Guanylate Cyclase-C AgonistStart: 73-08-5708ymdy 1 capsule by mouth once dailyLinzess 72 mcg oral capsule 72 mcg = 1 cap(s), Oral, Daily, # 30 cap(s), Refills(s) 6, Pharmacy: [facility]/pharmacy #[id number], 165, cm, 09/30/24 10:01:00 EST, Height/Length Dosing, 63.4, kg, 09/30/24 10:01:00 EST, Weight Dosing Start Date: 11/28/24 Status: Ordered Quantity: 30.0 Unit: cap(s) Repeat number: 7Start: 07-24-2024 End: 29-08-8183pypv 1 capsule by mouth before mealtimeLinzess 145 MCG capsule Take 145 mcg by mouth in the morning. Take before meals. 07/24/2024 08/13/2025 Discontinued (Therapy completed)Start: 10-86-2174udev 1 capsule by mouth once dailyLinzess 145 mcg oral capsule 145 mcg = 1 cap(s), Oral, Daily, # 30 cap(s), Refills(s) 4, Pharmacy: [facility]/pharmacy #[id number], 165, cm, 07/24/24 12:20:00 EDT, Height/Length Dosing, 64, kg, 07/24/24 12:20:00 EDT, Weight Dosing Start Date: 07/24/24 Status: Orderedlubiprostone 0.008 mg oral capsule (1 source)Chloride Channel ActivatorStart: 05-05-2025 End: 72-33-6921pkpx 1 capsule by mouth twice dailyAmitiza 8 mcg Cap 8 mcg = 1 cap(s), Oral, BID, X 90 day(s), # 180 cap(s), Refills(s) 0, Pharmacy: [facility], 165, cm, 05/05/25 12:18:00 EDT, Height/Length Dosing, 63, kg, 05/05/25 12:18:00 EDT, Weight Dosing Start Date: 05/05/25 Stop Date: 08/03/25 Status: Ordered Quantity: 180.0 Unit: cap(s) Repeat number: 1 Indications: Outlet dysfunction constipation;Magnesium (2 sources)take 2 tablets by mouth once dailyMagnesium 200 MG 2 tablets with a meal Orally Once a day unsure of dose Activemirtazapine 15 mg oral tablet (20 sources)Start: 19-57-9343lhzs 1 tablet by mouth once dailyMirtazapine 15 mg Tablet Active 15 MG PO Daily June 28, 2018 12:00am Complies with drug therapyMultiple Vitamins-Minerals (multivitamin with iron-minerals) liquid (10 sources)Multiple Vitamins-Minerals (multivitamin with iron-minerals) liquid Take by mouth Daily Activenitrofurantoin, macrocrystals 25 mg / nitrofurantoin, monohydrate 75 mg oral capsule (4 sources)Nitrofuran AntibacterialStart: 01-15-2024 End: 53-51-4144fjgr 1 capsule by mouth twice dailyMacrobid 100 mg Cap 100 mg = 1 cap(s), Oral, BID, X 5 day(s), # 10 cap(s), Refills(s) 0, Pharmacy: [facility]/pharmacy #[id number], 162, cm, 03/22/23 13:18:00 EDT, Height/Length Dosing, 68.6, kg, 03/22/23 13:18:00 EDT, Weight Dosing Start Date: 01/15/24 Stop Date: 01/20/24 Status: OrderedStart: 92-67-1768togv 1 capsule by mouth every twelve hours at mealtimeNitrofurantoin Monohyd/M-Cryst (Macrobid) 100 mg Capsule Active 100 MG PO Q12H April 25, 2021 12:00am Administer with a meal/food: swallow whole; do not open, crush, dissolve, or chew Complies with drug therapyomeprazole 40 mg delayed release oral capsule (3 sources)Proton Pump InhibitorStart: 67-02-7657kwem 1 capsule by mouth once dailyomeprazole 40 mg Cap-DR 40 mg = 1 cap(s), Oral, Daily, # 30 cap(s), Refills(s) 1, Pharmacy: [facility]/pharmacy #[id number] Start Date: 02/05/19 Status: Ordered ondansetron 4 mg oral tablet (3 sources)Serotonin-3 Receptor AntagonistStart: 32-24-5879azcp 1 tablet by mouth every eight hours as needed for nausea and vomitingOndansetron Hcl (Zofran) 4 mg tablet Active 4 MG PO Q8H as needed for nausea and vomiting 14 2020 12:00am Complies with drug therapyoxybutynin chloride 5 mg oral tablet (2 sources)Cholinergic Muscarinic AntagonistoxyBUTYnin Chloride 5 MG as directed Orally unsure of dose Activepantoprazole 40 mg delayed release oral tablet (20 sources)Proton Pump InhibitorStart: 01-17-2024 End: 23-22-2453sbsr 1 tablet by mouth once dailyPantoprazole [address] Tab 40 mg = 1 tab(s), Oral, Daily, # 90 tab(s), Refills(s) 3, Pharmacy: [facility], 165, cm, 09/30/24 10:01:00 EST, Height/Length Dosing, 63.4, kg, 09/30/24 10:01:00 EST, Weight Dosing Start Date: 12/30/24 Status: Ordered Quantity: 90.0 Unit: tab(s) Repeatnumber: 4pioglitazone 15 mg oral tablet (9 sources)Peroxisome Proliferator Receptor alpha Agonist, Peroxisome Proliferator Receptor gamma Agonist, ThiazolidinedioneStart: 53-03-2747strd 1 tablet by mouth once dailypioglitazone 15 mg Tab 15 mg = 1 tab(s), Oral, Daily, Refills(s) 0, Blood glucose Start Date: 03/22/23 Status: OrderedPOLYETHYLENE GLYCOL 3350 (7 sources)Osmotic LaxativeStart: 34-76-2482tljb 17 g by mouth once daily polyethylene glycol 3350 17 gm, Oral, Daily, Refill(s) 0 Start Date: 08/09/24 Status: OrderedPreserVision AREDS (20 sources)Start: 54-19-0223QkjdlyYlvnhj AREDS See Instructions, Refill(s) 0, Prophylaxis Start Date: 12/12/22 Status: Ordered Repeat number: 1Start: 46-92-9141WfcjxvVjhjte AREDS See Instructions, Refill(s) 0, Prophylaxis Start Date: 12/12/22 Status: OrderedStart: 26-39-6086PxriqtXsawis AREDS Refill(s) 0 Start Date: 12/12/22 Status: OrderedPreserVision AREDS as directed Orally Active Probiotic Product (ALIGN PO) (14 sources) End: 69-57-2251Qnnszzham Product (ALIGN PO) Take by mouth 08/13/2025 Discontinued (Therapy completed)Probiotic Product (ALIGN PO) Take by mouth Activeprucalopride 2 mg oral tablet (1 source)Start: 05-06-2025 End: 24-64-2403ezfv 1 tablet by mouth once dailyMotegrity 2 mg oral tablet 2 mg = 1 tab(s), Oral, Daily, X 90 day(s), # 90 tab(s), Refills(s) 1, Pharmacy: [facility]/pharmacy #[id number], 165, cm, 05/05/25 12:18:00 EDT, Height/Length Dosing, 63, kg, 05/05/25 12:18:00 EDT, Weight Dosing Start Date: 05/06/25 Stop Date: 11/02/25 Status: Ordered Quantity: 90.0 Unit:tab(s) Repeat number: 2psyllium 400 mg oral capsule (1 source)Start: 77-17-6398Imqprroq Husk (Metamucil) 0.4 gram capsule Active 0.4 GM PO Daily April 29, 2021 12:00am Complies with drug therapyPsyllium Husk (Metamucil) 0.4 gram capsule (2 sources)Start: 95-96-2504Ntaukgir Husk (Metamucil) 0.4 gram capsule Active 0.4 GM PO Daily April 29, 2021 12:00amrosuvastatin calcium 10 mg oral tablet (10 sources)HMG-CoA Reductase InhibitorStart: 97-05-0259pjfw 1 tablet by mouth once dailyrosuvastatin (Crestor) 10 MG tablet Indications: Mixed hyperlipidemia Take 1 tablet (10 mg) by mouth Daily 90 tablet 2 02/10/2025 Activesemaglutide 14 mg oral tablet (20 sources)Start: 59-34-4786Fpixbgxy 7 mg oral tablet See Instructions, Refills(s) 0 Start Date: 06/11/24 Status: OrderedStart: 37-95-1236yxed 1 tablet by mouth once dailySemaglutide (Rybelsus) 14 mg tablet Active 14 MG PO Daily August 14, 2025 12:00am Complies with drug therapyStart: 47-45-4746Zizhqbfk 7 mg oral tablet Refills(s) 0, Blood glucose Start Date: 01/17/24 Status: Ordered Rybelsus 7 MG 1 tablet at least 30 minutes before first food, beverage or other oral medicine of the day Orally Once a day Activesimvastatin 20 mg oral tablet (20 sources)HMG-CoA Reductase InhibitorStart: 06-28-2018 End: 56-87-5240ymzb 1 tablet by mouth once daily at bedtimeSimvastatin 20 mg Tablet Active 20 MG PO Daily at bedtime June 28, 2018 12:00am Complies with drug therapysolifenacin succinate 5 mg oral tablet (10 sources)Cholinergic Muscarinic AntagonistStart: 53-04-1957unva 1 tablet by mouth once dailyVesicare 5 mg Tab 5 mg = 1 tab(s), Oral, Daily, # 90 tab(s), Refills(s) 3, Pharmacy: [id number], 165, cm, 12/12/22 13:46:00 EST, Height/Length Dosing, 70.4, kg, 12/12/22 13:46:00 EST, Weight Dosing Start Date: 01/10/23 Status: OrderedStart: 81-44-8266ykij 1 tablet by mouth every other day Vesicare 5 mg Tab 5 mg = 1 tab(s), Oral, Every other day, # 30 tab(s), Refills(s) 11, Pharmacy: [id number], 165, cm, 12/12/22 13:46:00 EST, Height/Length Dosing, 70.4, kg, 12/12/22 13:46:00EST, Weight Dosing Start Date: 12/14/22 Status: Orderedtamsulosin hydrochloride 0.4 mg oral capsule (7 sources)alpha-Adrenergic BlockerStart: 08-10-2024 End: 88-33-3433psjl 1 capsule by mouth once dailyFlomax 0.4 mg Cap 0.4 mg = 1 cap(s), Oral, Daily, # 10 cap(s), Refills(s) 0, Pharmacy: [facility]/pharmacy#[id number], 165, cm, 08/15/24 9:05:00 EDT, Height/Length Dosing, 63.4, kg, 08/15/24 9:05:00 EDT, Weight Dosing Start Date: 08/15/24 Status: OrderedtraMADol hydrochloride 50 mg oral tablet (4 sources)Opioid AgonistStart: 45-19-9392bvrk 1 tablet by mouth every twelve hours as needed for paintraMADOL 50 mg Tab 50 mg = 1 tab(s), Oral, q12hr, PRN for pain, # 7 tab(s), Refills(s) 0, [id number] 165, cm, 08/15/24 9:05:00 EDT, Height/Length Dosing, 63.4, kg, 08/15/24 9:05:00EDT, Weight Dosing Start Date: 08/15/24 Status: Orderedtriamcinolone acetonide 1 mg/ml topical cream (14 sources)CorticosteroidStart: 34-53-2307vwsnsdeoissjn (Kenalog) 0.1 % cream Apply 1 application topically as needed in the morning and 1 application as needed in the evening. 06/30/2023 Activetrospium chloride 20 mg oral tablet (8 sources)Cholinergic Muscarinic AntagonistStart: 06-11-2024 End: 40-14-3549rwny 1 tablet by mouth onceTrospium 20 mg tablet Active 20 MG PO Once August 12, 2024 12:00am Complies with drug therapyTylenol 8 Hour 650 MG (2 sources)take 1 tablet by mouth every eight hours as neededTylenol 8 Hour 650 MG 1 tablet as needed Orally every 8 hrs ActiveVitamin D3 (20 sources)Start: 32-70-0373ydll 50 ug by mouth once dailyVitamin D3 50 mcg, Oral, Daily, Refills(s) 0, Prophylaxis Start Date: 01/03/20 Status: Ordered Repeat number: 1Start: 51-12-4810mhlh 50 ug by mouth once dailyVitamin D3 50 mcg, Oral, Daily, Refills(s) 0, Prophylaxis Start Date: 01/03/20 Status: OrderedStart: 63-59-0392Eotxnro D3 Refills(s) 0 Start Date: 01/03/20 Status: OrderedVitamin D3 1926891 UNIT/GM (2 sources)Vitamin D3 3203634 UNIT/GM as directed Active Completed/Discontinued Medications MedicationDrug Class(es)DatesSig (Normalized)Sig (Original)ascorbic acid 113 mg / beta carotene 7160 mg / cuprous oxide 0.4 mg / dl-alpha tocopheryl acetate 100 unt / zinc oxide 17.4 mg oral tablet (3 sources)Vitamin CStart: 06-28-2018 End: 40-86-4085ifuf 2 tablets by mouth twice dailyVitamins A,C,I-Zkwk-Wxpvuh (Preservision Areds) 7,160-113-100 syvw-nj-nttl Tablet Discontinued 2 TAB PO Twice daily June 28, 2018 12:00am April 25, 2021 7:55amdicyclomine hydrochloride 20 mg oral tablet (6 sources)AnticholinergicStart: 04-25-2021 End: 65-50-7019gozx 1 tablet by mouth four times dailyDicyclomine 20 mg Tablet Discontinued 20 MG PO Four times daily April 25, 2021 12:00am August 12, 2024 11:23amStart: 06-28-2018 End: 90-55-0174mivq 1 capsule by mouth four times daily as neededDicyclomine 10 mg Capsule Discontinued 10 MG PO Four times daily as needed for Abdominal DiscomfortAugust 2017 12:00am November 09, 2018 4:51pmmetFORMIN hydrochloride 500 mg oral tablet (3 sources)BiguanideStart: 04-29-2021 End: 48-87-2537kcxz 1 tablet by mouth once dailyMetformin 500 mg tablet Discontinued 500 MG PO Daily 7 7 April 29, 2021 12:00am August 14, 2025 9 :52amrivaroxaban 10 mg oral tablet (20 sources)Factor Xa InhibitorStart: 23-41-2455xipk 1 tablet by mouth once dailyXarelto 20 20 one tablet PO Daily for 90 days Jul, ActiveStart: 04-20-2022 End: 54-95-9638pgna 1 tablet by mouth once dailyRivaroxaban (Xarelto) 10 mg tablet Discontinued 10 MG PO Daily 90 90 August 12, 2024 12:00am July 22, 2025 11:42amStart: 01-03-2020 End: 36-61-9129uwrn 1 tablet by mouth once dailyRivaroxaban (Xarelto) 20 mg Tablet Discontinued 20 MG PO Daily April 25, 2021 12:00am May 29, 2024 12:57pmStart: 12-13-2019 End: 10-95-9695efxc 1 tablet by mouth twice daily at mealtimeRivaroxaban (Xarelto) 15 mg tablet Discontinued 15 MG PO Twice daily 42 December 13, 2019 1:00am April 25, 2021 7:55am must administer with a meal/foodSITagliptin 100 mg oral tablet (3 sources)Dipeptidyl Peptidase 4 InhibitorStart: 06-28-2018 End: 38-08-0074qyqa 1 tablet by mouth once dailySitagliptin Phosphate (Januvia) 100 mg Tablet Discontinued 100 MG PO Daily June 28, 2018 12:00am April 25, 2021 7:55am Problems Active Problems Problem ClassificationProblemDateDocumented DateEpisodic/ChronicAbdominal pain (20 sources)Abdominal pain; Translations: [Unspecified abdominal pain]Onset: 395605-12-4652PxylaigjIvketffeoetgkq/social admission (4 sources)Patient encounter status; Translations: [Other specified counseling] 77-97-3361UbgismteDsryovc disorders (20 sources)Generalized anxiety disorder; Translations: [Generalized anxiety disorder]Onset: 829846-54-8077VgtbsfhQkblxr; peripheral; and visceral artery aneurysms (14 sources)Aneurysm of splenic artery; Translations: [Aneurysm of other specified arteries]Onset: 968734-22-3263KlwgpphOteuguh tract disease (3 sources)Postcholecystectomy syndrome; 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]Onset: 37-40-1480PbphlolvLoxjytpj of urinary tract (20 sources)Calculus of kidney; Translations: [Kidney stone]Onset: 12-12-2022 Resolved: 40-69-4506JbgxeppoBztuuxju (19 sources)Age-related nuclear cataract, left eye; Translations: [After- cataract of bilateral eyes]Onset: 98-62-9575LgkhvwqZaogqxlv mellitus with complications (20 sources)Neuropathy due to type 2 diabetes mellitus; Translations: [Type 2 diabetes mellitus with diabetic neuropathy, unspecified]Onset: 04-09-2023 33-26-4095IrrwrypFigbieiw mellitus without complication (20 sources)Diabetes mellitus; Translations: [Type 2 diabetes mellitus without complications]Onset: 04-20-2022 Resolved: 159666-79-2853ZxyagkvFtkyuhbx mellitus without complication (20 sources)Glycosuria; Translations: [Glycosuria]88-64-2990PlsuzjqyPbskblgcv of lipid metabolism (20 sources)Pure hypercholesterolemia, unspecified; Translations: [Hyperlipidemia]Onset: 682664-31-1772OwsjodgBewxwcplha disorders (20 sources)Mejia's esophagus; Translations: [Meija's esophagus without dysplasia]Onset: 04-09-2023 Resolved: 18-09-9210MlashidDpgfndlyu hypertension (20 sources)Essential (primary) hypertension; Translations: [Hypertensive disorder]Onset: 805771-12-4459IgpupidWiocj and electrolyte disorders (5 sources)Absolute hypovolemia; Translations: [Hypovolemia]56-81-3798Jyoccglb Genitourinary symptoms and ill-defined conditions (20 sources)Incontinence; Translations: [Incontinence without sensory awareness] Onset: 910250-45-8167YbkvwbpUukdekiaqymlw symptoms and ill-defined conditions (20 sources)Delay when starting to pass urine; Translations: [Increased frequency of urination]Onset: 027427-39-9912XhijzmddAkzyaaiebmoaa and screening for infectious disease (4 sources)Needs influenza immunization; Translations: [Encounter for immunization]80-93-9874ZobrauoyCftkjhkbqu obstruction without hernia (2 sources)Fecal impaction; Translations: [Fecal impaction]70-99-5714Ijyjewcp Miscellaneous mental health disorders (18 sources)Primary insomnia; Translations: [Primary insomnia]Onset: 04-09-2023 05-12-6003FkvsqakWjfxfc and vomiting (1 source)Nausea and vomiting; Translations: [Nausea with vomiting, unspecified] Onset: 86-57-6479OiwpikvjNmwbvvuwwvyea gastroenteritis (20 sources)Noninfectious enteritis; Translations: [Noninfective gastroenteritis and colitis, unspecified]Onset: 88-11-3700VbskydqwHfpnpsqsusi deficiencies (18 sources)Vitamin D deficiency; Translations: [Vitamin D deficiency, unspecified]Onset: 347145-00-9906SplyevyItwivxuknuy deficiencies (20 sources)Vitamin B12 deficiency (non anemic); Translations: [Deficiency of other specified B group vitamins]Onset: 725027-72-8535Djejqbqu Osteoarthritis (20 sources)Eygfnvcnvrmxxo72-79-4532IeqlovhHqmki aftercare (2 sources)Long-term current use of anticoagulant; Translations: [manager long term care (current) use of anticoagulants]Onset: 01-97-6898DegmlrxoLybds aftercare (1 source)Long-term current use of drug therapy; Translations: [Other middle or intermediate school principal (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]Onset: 96-24-5753DghqbmigOevmy and unspecified benign neoplasm (1 source)Lipoma of intra-abdominal organs; Translations: [Benign lipomatous neoplasm of intra-abdominal organs]Onset: 12-03-1123UnxwrjijGppfq and unspecified benign neoplasm (16 sources)Lipoma of djuftyz68-09-2758RxkcmgqjHxftl diseases of bladder and urethra (20 sources)Urethral stricture; Translations: [Other urethral stricture, female] Onset: 153620-51-5613BnimkuljMphzh diseases of kidney and ureters (4 sources)Urinary tract obstruction; Translations: [Hydronephrosis with renal and ureteral calculous obstruction]Onset: 48-60-8485MpzeoupxJdhxm diseases of kidney and ureters (1 source)Acquired renal cyst without neoplastic change; Translations: [Cyst of kidney, acquired]Onset: 89-12-8042DxyumulyDbkld gastrointestinal disorders (12 sources)Irritable bowel syndrome characterized by constipation; Translations: [Irritable bowel syndrome with constipation]Onset: 04-09-2023 76-03-6138UhxerqmSykrr gastrointestinal disorders (18 sources)Irritable bowel syndrome; Translations: [Irritable bowel syndrome without diarrhea]Onset: 08-04-2015 Resolved: 677504-57-8934ScfkvtnAgqvf gastrointestinal disorders (20 sources)Constipation; Translations: [Constipation, unspecified]Onset: 04-09-2023 Resolved: 790461-12-0808WxzlyqbvAquay gastrointestinal disorders (2 sources)Constipation by outlet obstruction; Translations: [Outlet dysfunction constipation]Onset: 37-56-7634EmgorbfcXliwq gastrointestinal disorders (2 sources)Diarrhea; Translations: [Diarrhea, unspecified]77-77-9301Wwrgrpnr Other liver diseases (16 sources)Fatty (change of) liver, not elsewhere classified; Translations: [Other chronic nonalcoholic liver disease]Onset: hronic Other non-traumatic joint disorders (2 sources)Pain in right shoulder; Translations: [Pain in right shoulder]Onset: 36-32-4915WuvzujdmXygfm non-traumatic joint disorders (2 sources)Pain in left shoulder; Translations: [Pain in left shoulder]Onset: 19-23-6977HsgzibisFlbqm nutritional; endocrine; and metabolic disorders (1 source)Abnormal weight loss; Translations: [Abnormal weight loss]Onset: 95-34-0597BbuixshjWbaqj nutritional; endocrine; and metabolic disorders (18 sources)Unintentional weight bskj20-82-7161RrdhahmiCxrkf screening for suspected conditions (not mental disorders or infectious disease) (5 sources)Increased ketone bodies; Translations: [Other specified abnormal findings of blood chemistry]29-21-3250ClzbsmpzJkhxuson of female genital organs (4 sources)Cystocele; Translations: [Cystocele, unspecified]Onset: 09-30-2024 ChronicPulmonary heart disease (20 sources)Pulmonary thromboembolism; Translations: [Other pulmonary embolism without acute cor pulmonale]Onset: 523424-67-2245VbywvlyaUnygpvbf codes; unclassified (1 source)Acquired absence of organ; Translations: [Acquired absence of other specified parts of digestive tract]Onset: 68-05-7182SokbtkryQoiilyb detachments; defects; vascular occlusion; and retinopathy (15 sources)Nonexudative age-related macular degeneration; Translations: [Nonexudative age-related macular degeneration, left eye, intermediate dry stage]Onset: 361172-58-5075XcwhgtdCnloxdwcy-xglgozf disorders (14 sources)Nicotine dependence; Translations: [Nicotine dependence, unspecified, uncomplicated]Onset: 89-73-7561MxrjxxsCyaipfa on above:Added secondary to documentation in Social History.Thyroid disorders (20 sources)Hypothyroidism; Translations: [Hypothyroidism, unspecified]Onset: 871315-06-9965YnonyfwOzxawqhiimla (20 sources)Drug therapy wakhqzm02-78-2911Hwwbmwvunrda (18 sources)Finding of sensation of -13-5769Uribqxqthegd (9 sources)Obstructive snkbpejihoiygy82-87-2788Wolobne tract infections (20 sources)Chronic lxntuztd05-68-2893PnvjibrVtznexf tract infections (20 sources)Acute urinary tract infection; Translations: [Urinary tract infection, site not specified]Onset: 846600-36-5347Wyzgrdpf Past or Other Problems Problem ClassificationProblemDateDocumented DateEpisodic/ChronicCoagulation and hemorrhagic disorders (14 sources)Hypercoagulability state; Translations: [Other primary thrombophilia]Onset: 04-09-2023 Resolved: 879248-36-2945WelnuneNztpg aftercare (1 source)manager long term care (current) use of anticoagulants; Translations: [[facility] CURRNT USE ANTICOAGULANTS]Onset: 73-45-9358PoiedknqOcuqb aftercare (1 source)Other middle or intermediate school principal (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; Translations: [OTH [facility] CURRENT DRUG THERAPY]Onset: 97-09-2076JhyhjiyjUxjte and ill-defined heart disease (14 sources)Diastolic dysfunction; Translations: [Other ill-defined heart diseases]Onset: 04-09-2023 Resolved: 319755-04-8901ZjenppqCusur and unspecified benign neoplasm (20 sources)History of polyp of colon; Translations: [Personal history of colonic polyps]Onset: 49-25-6074ShwleogvWnxdh and unspecified benign neoplasm (14 sources)Polyp of colon; Translations: [Polyp of colon]Onset: 04-09-2023 Resolved: 041085-57-6759WqaznwzaPomlp diseases of kidney and ureters (20 sources)Cyst of kidney; Translations: [Cyst of kidney, acquired]Onset: 140793-30-8650SwvypfrsLgkwz eye disorders (15 sources)Dry eyes; Translations: [Dry eye syndrome of bilateral lacrimal glands]Onset: 551511-58-1973ClbvsicjEdjbu gastrointestinal disorders (20 sources)Dysphagia; Translations: [Dysphagia, unspecified]Onset: 04-09-2023 Resolved: 94-97-3535GfedbnajPsdil gastrointestinal disorders (20 sources)Incontinence of feces; Translations: [Full incontinence of feces] Onset: 04-09-2023 Resolved: 44-61-5179QrbbyfulCiaoy nervous system disorders (14 sources)Mortons neuroma of right foot; Translations: [Lesion of plantar nerve, right lower limb]Onset: 04-09-2023 Resolved: 801597-33-4282MfckvlpQmbfj nervous system disorders (14 sources)H/O: migraine; Translations: [Personal history of other diseases of the nervous system and sense organs]Onset: 921464-45-6830JdzguiqjQvkfg upper respiratory disease (14 sources)Allergic rhinitis; Translations: [Allergic rhinitis, unspecified] Onset: 04-09-2023 Resolved: 434887-19-2202BrihkmmTsobv upper respiratory disease (4 sources)Epistaxis; Translations: [EPISTAXIS]Onset: 18-60-5726Wmqoelrh Phlebitis; thrombophlebitis and thromboembolism (20 sources)Personal history of other venous thrombosis and embolism; Translations: [H/O: thrombosis]Onset: 04-20-2022 Resolved: 041566-49-3845HeimkwlnXiqtsrwb codes; unclassified (1 source)Acquired absence of other specified parts of digestive tract; Translations: [ACQ ABSENCE OTH PART DIGESTV TRACT]Onset: 38-42-2443Wqikirln Residual codes; unclassified (14 sources)History of hysterectomy for benign disease; Translations: [Acquired absence of both cervix and uterus]Onset: 04-09-2023 Resolved: 539154-37-8675Kpcpgzcc Results Test NameValueInterpretationReference RangeFacilityPrep for Procedureon 08-84-2615Ogvz for [id number] Chelsea Curry 1945 F Date Provider Department Center 08/15/2025 [facility] Medical No family history on fileNormalUniversity of [facility] CenterAmbulatory Visit Summaryon 89-44-9293Uygszqfqbg Visit SummaryAmbulatory Visit Summary CHELSEA CURRY :1945 Visit Date:08/11/2025 Ambulatory Visit Instructions Your Diagnosis Kidney stones Mixed stress and urge incontinence Renal cyst Anticoagulated Tests Performed XR Abdomen 1 View -- Results Pending -- Please visit your patient portal for your results or contact your primary care physician. Your Care Team Attending Physician - Rashida ELDRIDGE MD Primary Care Physician - JARED HEDRICK MD This Is Your Medications List Contact prescribing physician if questions or concerns acetaminophen (acetaminophen 325 mg Tab) cholecalciferol (Vitamin D3) citalopram hydrochlorothiazide (hydrochlorothiazide 25 mg Tab) levothyroxine linaclotide (Linzess 72 mcg oral capsule) mirtazapine multivitamin with minerals (PreserVision AREDS) pantoprazole (Pantoprazole [address] Tab) prucalopride (Motegrity 2 mg oral tablet) rivaroxaban (Xarelto 20 mg oral tablet) simvastatin Procedures Performed Cystoscopy (08/15/2024), Cystoscopy (07/30/2024), MULTISECTION LIMITED^WO CONTRAST:FIND:PT:ABDOMEN:DOC:CT (07/30/2024), Esophagogastroduodenoscopy (02/23/2024), Colonoscopy (01/30/2024), Esophagogastroduodenoscopy (01/30/2024), Colonoscopy (01/13/2017), Cystoscopy (04/27/2016), Cystoscopic removal of ureteric stent (04/20/2012), Cystoscopic insertion of ureteric stent (04/06/2012), ESW[facility] - Extracorporeal shockwave lithotripsy for renal calculus (04/01/2012), Cystoscopy and retrograde pyelography(09/29/2010), E[facility] - Extracorporeal shockwave lithotripsy for renal calculus (12/31/2009), E[facility] - Ex tracorporeal shockwave lithotripsy for renal calculus (12/16/2009), Cystoscopic [...] postoperative education. Discharge Vitals Heart Rate (Peripheral) 53 Respiratory Rate 16 Blood Pressure 115/62 Height 165 cm Height 65 in Weight 63 kg Weight 138.891 lb BMI 23.14 What to do next Scheduled Follow-Up Appointments Monday2025 9:15 AM EDT With: Rashida ELDRIDGE MD Where: [facility] [address] [place] [address]- You Need to Schedule the Following Appointments Follow Up with Rashida ELDRIDGE MD, URL When: Where: [facility] [address], [place] [address]- Medications What How Much When Instructions Unchanged acetaminophen (acetaminophen 325 mg Tab) [...] 1 Tablets By Mouth Every day Contact prescribingphysician if questions or concerns Unchanged prucalopride (Motegrity 2 mg oral tablet) 1 Tablets By Mouth Every day Duration: 90 Days Contact prescribing physician if questions or concerns Unchanged rivaroxaban (Xarelto 20 mg oral tablet) 1 Tablets By Mouth Every day Contact prescribing physician if questions or concerns Unchanged simvastatin See instructions 20 mg Oral Monday, Monday, Monday Contact prescribing physician if questions or concerns Allergies Demerol (hyper) Ketek (Un (more content not included)...[facility] Office/Clinic Noteon 16-63-0084Gbvqlfj Office/Clinic NoteUrology Office/Clinic Note Chief Complaint month f/u with KUB and JOSE DE JESUS HPI Staff 6 month f/u with JOSE DE JESUS and KUBarbara. JOSE DE JESUS & KUB 08/07/25 TB Dx: left flank pain, kidney stones, gross hematuria, mixed stress and urge incontinence, urethral stricture, bladder prolapse and fecal incontinence. HCTZ 25mg qd (through PCP) Denies any dysuria or visible blood at any time. States that she feels she is emptying completely but it does take her a little longer sometimes. She changes her position and leans forward and then is able to finish voiding. States that usually can not wait too long when she gets the urge to void. Does wear pads due to bowel issues but states that she does have a small amount of urinary leakage some times. Nocturia 1-2x. History of Present Illness Tests reviewed: UA, JOSE DE JESUS, KUB I have reviewed the previous health record information and history for this patient from Dr. Eldridge. I have reviewed and verified the staff HPI to be accurate for this encounter. Review of Systems PHQ Score Initial [...] HPI. Physical Exam Vitals & Measurements HR: 53(Peripheral) RR: 16 BP: 115/62 HT: 165 cm HT: 65 in WT: 138.891 lb WT: 63 kg BMI: 23.14 General Appearance: alert, no distress, well nourished, well developed adult. Assessment/Plan Last seen by AG. 1. Kidney stones (N20.0: Calculus of kidney) KUB 01/11/24 - 5 mm stone over R mid body. Several small stones projecting over LSP. KUB 06/10/24 [facility] - dictation still pending. Personal review: appears unchanged from prior KUB in December. CT AP w/wo con 06/20/24 (ordered due to gross hematuria) - Two nonobstructing right and two nonobstructing left renal calculi measure up to [address] AP wo con 07/30/24 - A few other small bilateral intrarenal calculi, measuring up to approximately 6 to 7 mm. S/p cysto, L URS, L laser litho of ureteral stone and L renal stones, L stent placement 08/15/24 - Findings: intrarenal calculi less than 2 submillimeter fragment which were lasered. Stone analysis from ureteral stone - 100% ca ox monohydrate. KUB 09/23/24 [facility] - 8 x 3.4 cm calcification overlying left first lumbar transverse process, in region of proximal left ureter. Upon personal review, calcification appears vascular in concordants to prior CT. KUB 02/05/25 - Suspected stone involving L kidney measuring 4mm. KUB 08/07/25 [facility] - Kidneys are partially obscured. Possible LUP renal stones, stable (not measured). No R sided stones. JOSE DE JESUS 08/07/25 [facility] - BL echogenic foci suggesting renal stones. Several on the L up to 4 mm. 5 mm RMPstone. No hydro. Taking HCTZ 25 mg qd, PCP has been refilling. Pt does not recall if this was started by PRW or PCP.Reports PCP questioned why she was on this med too, reports her BP is fine. Reviewed imaging with pt. Has completed metabolic workup previously but do not see one in her chart since at least 2019. Recommended repeating given stone recurrence since then. Follow up 8 mos with KUB or sooner if needed. Pt understands and agrees with plan. -High fluid intake -Complete metabolic workup (blood and urine), will call with results 2. Mixed stress and urge incontinence (N39.46: Mixed incontinence) PVR (cc): 12/12/22 - 0 Tried Oxybutynin 5 mg bid for a short time. Experienced dry mouth with VESIcare. [1] BBS not given to pt (22). Pt unable to provide urine sample today. No bladder meds? -Cont symptomatic monitoring 3. Renal cyst (N28.1: Cyst of kidney, acquired) JOSE DE JESUS 09/23/24 [facility] - [facility] JESUS simple cyst measuring 2.4 x 2.1 x 2.3 cm, and mid pole cyst 1.5 x 0.9 x 1.5cm. Left kidney shows simple pole cyst 1.0 x 1.1 x 1.2 cm. No hydro. JOSE DE JESUS 08/07/25 [facility] - A RUP renal cyst 18 x 17 x 22 mm. Simple cysts do not require surveillance. 4. Anticoagulated (Z79.01: manager long term care (current) use of anticoagulants) Xarelto. Elevated risk for periop complications in the future. Follow-up With When Contact Information Rashida ELDRIDGE MD, [facility] [address], [place] [address]- Additional Instructions: Complete metabolic workup (blood and urine), will call with results 8 mos with KUB Patient Education 24-Hour Urine Collection Dietary Guidelines to Help Prevent Kidney Stones I, Tiffani Mora, personally scribed for Dr. Eldridge on 08/11/2025 11:37:35. . Documentation recorded by the scribeTiffani, accurately reflects the services(s) I performed and deci (more content not included)...[facility] CampusComment on above:Result Comment: Electronically Signed By: Rashida ELDRIDGE MD\.br\Date and Time Signed: 08/11/25 11:41 EDT\.br\Electronically Co-Signed By: Tiffani Mora\.br\Date and Time Co- Signed: 08/11/25 11:39 EDTComprehensive metabolic panelon 91-33-9244Uafysez [Mass/Vol]4.3 g/dL3.6 - 5.1 g/dLNOMS HealthcareAlbumin/Globulin [Mass ratio]2.2 {ratio}NOMS HealthcareALP [Catalytic activity/Vol]59 U/L37 - 153 U/LNOMS HealthcareALT [Catalytic activity/Vol]16 U/L6 - 29 U/LNOMS HealthcareAST [Catalytic activity/Vol]16 U/L10 - 35 U/LNOMS HealthcareBilirubin [Mass/Vol]1.2 mg/dL0.2 - 1.2 mg/dLNOMS HealthcareCalcium [Mass/Vol]9.6 mg/dL8.6 - 10.4 mg/dL NOMS HealthcareChloride [Moles/Vol]102 mmol/L98 - 110 mmol/LNOMS HealthcareCO2 [Moles/Vol]31 mmol/L20 - 32 mmol/LNOMS HealthcareCreatinine [Mass/Vol]0.71 mg/dL 0.60 - 0.95 mg/dLNOMS HealthcareGFR/1.73 sq M.predicted among non-blacks MDRD (S/P/Bld) [Vol rate/Area]85 mL/min/{1.73_m2}> OR = 60 mL/min/1.26a3SLTT HealthcareGlobulin (S) [Mass/Vol]2 g/dLNOMS HealthcareGlucose [Mass/Vol]157 mg/nZHqyr13 - 99 mg/dLNOMS HealthcareComment on above: Fasting reference interval For someone without known diabetes, a glucose value >125 mg/dL indicates that they may have diabetes and this should be confirmed with a follow-up test. Potassium [Moles/Vol]3.6 mmol/L3.5 - 5.3 mmol/LNOMS HealthcareProtein [Mass/Vol] 6.3 g/dL6.1 - 8.1 g/dLNOMS HealthcareSodium [Moles/Vol]141 mmol/L135 - 146 mmol/LNOMS HealthcareUrea nitrogen [Mass/Vol]17 mg/dL7 - 25 mg/dLNOMS Healthcare Urea nitrogen/Creatinine [Mass ratio]SEE NOTE:NOMS HealthcareComment on above: Not Reported: BUN and Creatinine are within reference range. Hemoglobin A1con 37-59-6956WrD7t (Bld) [Mass fraction]8.7 %HighNINF - 5.7 %NOMS HealthcareComment on above:For someone without known diabetes, a hemoglobin A1c [...] A1c for diagnosis of diabetes for children. Lipid 1996 panelon 90-60-9618Xblsxeeyphi [Mass/Vol]140 mg/dLNINF - 200 mg/dLNOMS HealthcareCholesterol in HDL [Mass/Vol]48 mg/dLLow> OR = 50NOMS Healthcare Cholesterol in LDL [Mass/Vol]69 mg/dLmg/dL (calc)NOMS HealthcareComment on above:Reference range: <100 Desirable range <100 mg/dL for primary prevention; <70 mg/dL for patients with CHD or diabetic patients with > or = 2 CHD risk factors. LDL-C is now calculated using the Julianna calculation, which is a validated novel method providing better accuracy than the Friedewald equation in the estimation of LDL-C. Teo RM et al. GENNA. 2013;310(19): 0189-3829 (http://education.BeehiveID/faq/KPH334) Cholesterol non HDL [Mass/Vol]92 mg/dLNIVanderbilt University HospitalComment on above:For patients with diabetes plus 1 major ASCVD risk factor, treating to a non-HDL-C goal of <100 mg/dL (LDL-C of <70 mg/dL) is considered a therapeutic option. Cholesterol.total/Cholesterol in HDL [Mass ratio]2.9 {ratio}[facility] Triglyceride [Mass/Vol]147 mg/dLNINF - 150 mg/dLCass Medical Center Panel Informationon 66-74-5059Fcljkcodfydmry and review of laboratory resultsAbnormal The Rehabilitation InstitutePerforming Organization Information Site ID: QPT Name: [employer] [facility] Address: [address] [place] [address], [address] [place] [phone] Director: Rey Garcia MDRandolph HealthVitamin B12on 08-09-2025 Cobalamin (Vitamin B12) [Mass/Vol]521 pg/mL200 - 1100 pg/mLNWILLOW CREST HOSPITAL – MIAMI Kekoehkpxb21kt 67-16-558416Mvwwikpd patient that I have the okay for her to hold her Xarelto for 48 hours prior to her EGD scheduled on 08/15/[address] Diana Ring. Patient verbalizes she will stop taking her Xarelto on 08/13/25.NormalUnOhioHealth Mansfield HospitalTelephoneon [id number] Chelsea Curry 1945 F Date Provider Department Center 08/08/2025 [facility] BRITTANY No family history on fileNormalUniversity of Baylor Scott & White Mcl[facility] Children'S Medical CenterUS RENAL BIon 30-69-8568JnoGal[place], [place] [address] Ultrasound Report Signed Patient: CHELSEA CURRY MR#: [id number] : 1945 Acct:[id number] Age/Sex: 80 / F ADM Date: 08/07/25 Loc: US Attending Dr: Rashida Eldridge M.D. Ordering Physician: Rashida Eldridge M.D. Date of Service: 08/07/25 Procedure(s): US renal BI Accession Number(s): [id number] cc: JARED HEDRICK ; Rashida Eldridge M.D. [place] [address] Patient Name: CHELSEA CURRY MRN: [facility]:[id number] date: 1945 Sex: F Assigned Patient Location: US Current Patient Location: US Accession/Order Number: [id number] Exam Date: 08/07/2025 11:00 Report Date: 08/07/2025 11:43 At the request of: RASHIDA ELDRIDGE MD Procedure: US renal BI BILATERAL RENAL AND BLADDER ULTRASOUND CLINICAL HISTORY: Left flank pain. History of kidney stones. COMPARISON: Plain films 08/07/2025 Estimation of renal size is approximately 2.5 cm on the right and 10.5 cm on the left. Echogenic foci with twinkle artifact are seen at both kidneys suggesting potential stones. At the midpole on the right, it measures 5 mm. There are several areas on the left measuring up to 4 mm in size. No hydronephrosis is identified. A cyst is visualized at the superior pole the right measuring 18 x 17 x 22 mm. There is no perinephric fluid. The urinary bladder is poorly distended with a volume of 17 mL. This limits assessment. US/US renal BI IMPRESSION: NO OBSTRUCTIVE UROPATHY. SUSPECTED BILATERAL NEPHROLITHIASIS, GREATER ON THE LEFT. RIGHT RENAL CYST. Impression dictated by: Nandini Wright M.D. 08/07/2025 11:43 AM Dictation Location: [place] [address] Electronically authenticated by: [id number] Y Date: 08/07/2025 11:43 Dictated By: Nandini Wright M.D. Signed By: 08/07/25 1145 DD/ 1143 TD/TT: Spinning Supervisor:CHADDadiology, Radiologist, - 08/07/[address] [address] Ultrasound Report Signed Patient: CHELSEA CURRY MR#: [id number] : 1945 Acct:[id number] Age/Sex: 80 / F ADM Date: 08/07/25 Loc: US Attending Dr: Rashida Eldridge M.D. Ordering Physician: Rashida Eldridge M.D. Date of Service: 08/07/25 Procedure(s): US renal BI Accession Number(s): [id number] cc: JARED HEDRICK ; Rashida Eldridge M.D. The [address] [id number] Patient Name: CHELSEA CURRY MRN: [facility]:[id number] date: 1945 Sex: F Assigned Patient Location: US Current Patient Location: US Accession/Order Number: [id number] Exam Date: 08/07/2025 11:00 Report Date: 08/07/2025 11:43 At the request of: RASHIDA ELDRIDGE MD Procedure: US renal BI BILATERAL RENAL AND BLADDER ULTRASOUND CLINICAL HISTORY: Left flank pain. History of kidney stones. COMPARISON: Plain films 08/07/2025 Estimation of renal size is approximately 2.5 cm on the right and 10.5 cm on the left. Echogenic foci with twinkle artifact are seen at both kidneys suggesting potential stones. At the midpole on the right, it measures 5 mm. There are several areas on the left measuring up to 4 mm in size. No hydronephrosis is identified. A cyst is visualized at the superior pole the right measuring 18 x 17 x 22 mm. There is no perinephric fluid. The urinary bladder is poorly distended with a volume of 17 mL. This limits assessment. US/US renal BI IMPRESSION: NO OBSTRUCTIVE UROPATHY. SUSPECTED BILATERAL NEPHROLITHIASIS, GREATER ON THE LEFT. RIGHT RENAL CYST. Impression dictated by: Nandini Wright M.D. 08/07/2025 11:43 AM Dictation Location: [place] [address] Electronically authenticated by: [id number] Y Date: 08/07/2025 11:43 Dictated By: Nandini Wright M.D. Signed By: 08/07/25 1145 DD/ 1143 TD/TT: Spinning Supervisor: SHAWN ForbesRadiology Study observation (narrative)SHAWN ForbesUS RENAL BI Ordered By: Radiologist Radiology on 70-99-7993ZOGT [employer] Work Phone: XR ABDOMEN 1Von 86-89-3711FajGal[place], [place] [address] XRay Report Signed Patient: CHELSEA CURRY MR#: [id number] : 1945 Acct:[id number] Age/Sex: 80 / F ADM Date: 08/07/25 Loc: US Attending Dr: Rashida Eldridge M.D. Ordering Physician: Rashida Eldridge M.D. Date of Service: 08/07/25 Procedure(s): XR abdomen 1V Accession Number(s): [id number] cc: JARED HEDRICK ; Rashida Eldridge M.D. [place] [address] Patient Name: CHELSEA CURRY MRN: [id number]:[id number] date: 1945 Sex: F Assigned Patient Location: Current Patient Location: US Accession/Order Number: [id number] Exam Date: 08/07/2025 11:05 Report Date: 08/07/2025 11:40 At the request of: RASHIDA ELDRIDGE MD Procedure: XR abdomen 1V SINGLE VIEW ABDOMEN COMPARISON: 02/05/2025 CLINICAL DATA: Left flank pain. History of kidney stones. Supine views of the abdomen and pelvis were obtained. There is air within the stomach. There is air and stool within the colon. There are no dilated small bowel loops. The kidneys are partially obscured. Vascular type calcifications are again seen at the left upper quadrant. There are also some calcifications which could be renal at the upper pole. These are unchanged. There are no suspect right renal stones. There are pelvic phleboliths. No soft tissue masses are seen. There is levoscoliotic curvature with postoperative and degenerative changes in spine. XR/XR abdomen 1V IMPRESSION: POSSIBLE LEFT NEPHROLITHIASIS, SIMILAR TO THE PRIOR. Impression dictated by: Nandini Wright M.D. 08/07/2025 11:40 AM Dictation Location: [place] [address] Electronically authenticated by: [id number] Y Date: 08/07/2025 11:40 Dictated By: Nandini Wright M.D. Signed By: 08/07/25 1142 DD/ 1140 TD/TT: Spinning Supervisor:EDENHRadiology, Radiologist, - 08/07/2025 [place] [address] XRay Report Signed Patient: CHELSEA CURRY MR#: [id number] : 1945 Acct:[id number] Age/Sex: 80 / F ADM Date: 08/07/25 Loc: Attending Dr: Rashida Eldridge M.D. Ordering Physician: Rashida Eldridge M.D. Date of Service: 08/07/25 Procedure(s): XR abdomen 1V Accession Number(s): [id number] cc: JARED HEDRICK ; Rashida Eldridge M.D. The [place] [address] Patient Name: CHELSEA CURRY MRN: [id number]:[id number] date: 1945 Sex: F Assigned Patient Location: Current Patient Location: Accession/Order Number: [id number] Exam Date: 08/07/2025 11:05 Report Date: 08/07/2025 11:40 At the request of: RASHIDA ELDRIDGE MD Procedure: XR abdomen 1V SINGLE VIEW ABDOMEN COMPARISON: 02/05/2025 CLINICAL DATA: Left flank pain. History of kidney stones. Supine views of the abdomen and pelvis were obtained. There is air within the stomach. There is air and stool within the colon. There are no dilated small bowel loops. The kidneys are partially obscured. Vascular type calcifications are again seen at the left upper quadrant. There are also some calcifications which could be renal at the upper pole. These are unchanged. There are no suspect right renal stones. There are pelvic phleboliths. No soft tissue masses are seen. There is levoscoliotic curvature with postoperative and degenerative changes in spine. XR/XR abdomen 1V IMPRESSION: POSSIBLE LEFT NEPHROLITHIASIS, SIMILAR TO THE PRIOR. Impression dictated by: Nandini Wright M.D. 08/07/2025 11:40 AM Dictation Location: [place] [address] Electronically authenticated by: [id number] Y Date: 08/07/2025 11:40 Dictated By: Nandini Wright M.D. Signed By: 08/07/25 1142 DD/ 1140 TD/TT: Spinning Supervisor: [facility] HealthcareRadiology Study observation (narrative)[facility] HealthcareXR ABDOMEN 1VOrdered By: Radiologist Radiology on 07-51-5447DSDK Healthcare Work Phone: Optical coherence tomography study reporton 07-04-2025 [facility] HealthcareRadiology Study observation (narrative)[facility] HealthcareAmbulatory Visit Summaryon 59-93-6616Ykunxtwsut Visit Summary Ambulatory Visit Summary CHELSEA CURRY :1945 Visit Date:05/05/2025 Ambulatory [...] Performed Cystoscopy (08/15/2024), Cystoscopy (07/30/2024), MULTISECTION LIMITED^WO CONTRAST:FIND:PT:ABDOMEN:DOC:CT (07/30/2024), Esophagogastroduodenoscopy (02/23/2024), Colonoscopy (01/30/2024), Esophagogastroduodenoscopy (01/30/2024), Colonoscopy (01/13/2017), Cystoscopy (04/27/2016), Cystoscopic removal of ureteric stent (04/20/2012), Cystoscopic insertion of ureteric stent (04/06/2012), ESWL - Extracorporeal shockwave lithotripsy for renal calculus (04/01/2012), Cystoscopy and retrograde pyelography(09/29/2010), ESWL - Extracorporeal shockwave lithotripsy for renal calculus (12/31/2009), ESWL - Ex tracorporeal shockwave lithotripsy for renal calculus (12/16/2009), Cystoscopic [...] SILVER, Rashida Lujan Where: [facility] [address] Medications What How Much When Why Instructions New lubiprostone (Amitiza 8 mcg Cap) 1 Capsules By Mouth 2 times a day Constipation by outlet dysfunction Pickup at [facility]/pharmacy #[id number] Unchanged acetaminophen (acetaminophen 325 mg Tab) 2 [...] 1 Tablets By Mouth Every day Contact prescribingphysician if questions or concerns Unchanged rivaroxaban (Xarelto 20 mg oral tablet) 1 Tablets By Mouth Every day Contact prescribing physician if questions or concerns Unchanged semaglutide (Rybelsus 14 mg oral tablet) 14 Milligram By Mouth Every day Contact prescribing physician if questions or concerns Unchanged simvastatin See instructions 20 mg Oral Monday, Monday, Monday Contact prescribing physician if questions or concerns Pharmacy Information [facility]/pharmacy #[id number]: [address], [place] [phone] Allergies Demerol (hyper) Ketek (Unknown) Nubain (rash) (more content not included)...[facility] CampusAmbulatory Visit SummaryAmbulatory Visit Summary CHELSEA CURRY Jamey :1945 Visit Date:05/05/2025 Ambulatory Visit Instructions Your [...] Performed Cystoscopy (08/15/2024), Cystoscopy (07/30/2024), MULTISECTION LIMITED^WO CONTRAST:FIND:PT:ABDOMEN:DOC:CT (07/30/2024), Esophagogastroduodenoscopy (02/23/2024), Colonoscopy (01/30/2024), Esophagogastroduodenoscopy (01/30/2024), Colonoscopy (01/13/2017), Cystoscopy (04/27/2016), Cystoscopic removal of ureteric stent (04/20/2012), Cystoscopic insertion of ureteric stent (04/06/2012), ESWL - Extracorporeal shockwave lithotripsy for renal calculus (04/01/2012), Cystoscopy and retrograde pyelography(09/29/2010), ESWL - Extracorporeal shockwave lithotripsy for renal calculus (12/31/2009), ESWL - Ex tracorporeal shockwave lithotripsy for renal calculus (12/16/2009), Cystoscopic [...] SILVER, Rashida Lujan Where: [facility] [address] [address]- Medications What How Much When Why Instructions New lubiprostone (Amitiza 8 mcg Cap) 1 Capsules By Mouth 2 times a day Constipation by outlet dysfunction Pickup at [facility]/pharmacy #[id number] Unchanged acetaminophen (acetaminophen 325 mg Tab) 2 [...] 1 Tablets By Mouth Every day Contact prescribingphysician if questions or concerns Unchanged rivaroxaban (Xarelto 20 mg oral tablet) 1 Tablets By Mouth Every day Contact prescribing physician if questions or concerns Unchanged semaglutide (Rybelsus 14 mg oral tablet) 14 Milligram By Mouth Every day Contact prescribing physician if questions or concerns Unchanged simvastatin See instructions 20 mg Oral Monday, Monday, Monday Contact prescribing physician if questions or concerns Pharmacy Information [facility]/pharmacy #[id number]: [address], [place] [phone] Allergies Demerol (hyper) Ketek (Unknown) Nubain (rash) (more content not included)...NormalCaromont Healther [facility] MarylandGastroenterology Office/Clinic Noteon 74-83-8787Iopvpuftwluzevix Office/Clinic Note Gastroenterology Office/Clinic Note Chief Complaint [...] once a day Assessment/Plan 1. Anticoagulated (Z79.01: manager long term care (current) use of anticoagulants) 2. Mejia's esophagus [...] Daily, # 30 cap(s), Refills(s) 4, [id number] 165, cm, 07/24/24 12:20:00 EDT, Height/Length Dosing, 64, kg, 07/24/24 12:20:00 EDT, Weight Dosing lubiprostone, 8 mcg = 1 cap(s), Oral, BID, # 60 tab(s), Refills(s) 0, [id number],165, cm, 05/05/25 12:18:00 EDT, Height/Length Dosing, 63, kg, 05/05/25 12:18:00 EDT, Weight Dosing Current tobacco non-user 1036F Most recent diastolic blood pressure <80 mm Hg 3078F Systolic BP 130-139 mm Hg (Most Recent) 3075F 2. Right upper quadrant pain (R10.11: Right upper quadrant pain) 3. Stool incontinence (R15.9: Full incon (more content not included)...Normal [facility] HospitalComment on above:Result Comment: Electronically Signed By: Mukesh SILVER, Abbie Canseco\.br\Date and Time Signed: 05/05/2512:47 EDTBI MAMMOGRAM SCREENING TOMOSYNTHESIS BILATERALon 12-29-6955DJ MAMMOGRAM SCREENING TOMOSYNTHESIS BILATERALThis is a summary report. The complete report [...] Screening Mammogram ELECTRONICALLY SIGNED BY: Khris Chew M.D.NormalNot AvailablePancreatic elastase, fecalon 78-86-7667Ikyiywna.pancreatic (Stl) [Mass/Mass]714- [facility] Vernon HospitalComment on above:Severe Pancreatic Insufficiency: <100 Moderate Pancreatic Insufficiency: 100 - 200 Normal: >200 Performed at: - [address] [id number] Education Officer: Virginia Chen MD, Phone: [phone] Regional Medical Center Ambulatory Visit Summaryon 44-52-2441Qxculltzps Visit SummaryAmbulatory Visit Summary CHELSEA CURRY :1945 Visit Date:02/06/2025 Ambulatory [...] Performed Cystoscopy (08/15/2024), Cystoscopy (07/30/2024), MULTISECTION LIMITED^WO CONTRAST:FIND:PT:ABDOMEN:DOC:CT (07/30/2024), Esophagogastroduodenoscopy (02/23/2024), Colonoscopy (01/30/2024), Esophagogastroduodenoscopy (01/30/2024), Colonoscopy (01/13/2017), Cystoscopy (04/27/2016), Cystoscopic removal of ureteric stent (04/20/2012), Cystoscopic insertion of ureteric stent (04/06/2012), ESWL - Extracorporeal shockwave lithotripsy for renal calculus (04/01/2012), Cystoscopy and retrograde pyelography(09/29/2010), ESWL - Extracorporeal shockwave lithotripsy for renal calculus (12/31/2009), ESWL - Ex tracorporeal shockwave lithotripsy for renal calculus (12/16/2009), Cystoscopic [...] SILVER, Rashida Lujan Where: [facility] [address] [address] Medications What How Much When Why Instructions [...] 1 Tablets By Mouth Every day Contact prescribingphysician if questions or concerns Unchanged polyethylene glycol 3350 17 Gram By Mouth Every day Contact prescribing (more content notincluded)...[facility] Urology Office/Clinic Noteon 42-56-2123Wvutsnj Office/Clinic NoteUrology Office/Clinic Note Chief Complaint possible kidney stone [...] saw IVIS on 09/30/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 1. Left flank pain (R10.9: Unspecified abdominal pain) 02/05/25 KUB - suspected stone involving L kidney measuring 4mm (unable to view image) Pt called into office with c/o L flank pain. Pt reports that she has taken Tylenol ES and it takesthe edge off. Discussed KUB results with patient. [...] hold off on further imaging at this time.Pt denies hematuria, N/V, fevers, or inability to urinate. Advised patient to call our office in a [place] with an update and if no changes, pt agreeable to imaging at that time and F/U with Dr. Eldridge.Pt knows to present to ER for fever, [...] E&M of New Patient Moderate 45-59 Min 55261 2. Kidney stones (N20.0: Calculus of kidney) KUB 01/11/24 - 5 mm stone over R mid body. Several small stones projecting over LSP. KUB 06/10/24 [facility] - dictation still pending. Personal review: appears unchanged from prior KUB in December. CT AP wo con 07/30/24 - Approximately 7 x 4 x 3 mm proximal left ureteral calculus approximately 19cm superior to the left UVJ with mild left hydronephrosis. A few other small bilateral intrarenal calculi, measuring up to approximately 6 to 7 mm. S/p cysto w/ L stent placement 07/30/24. Pt presented to [facility] ER 08/09/24 with newly onset right-sided flank pain with N/V. CT AP wo con 08/09/24 FT - 4-5 mm calculus within the right distal ureter at the ureterovesicularjunction, with associated upstream mild to moderate right [...] and spoke with Dr. 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 Dr. Smith recommended admission for lithotripsy. S/p cysto, L URS, L laser litho, L stent placement 08/15/24. Findings ~4 mm mid ureteral stone lasered into small submillimeter fragments, intrarenal calculi less than 2 submillimeter fragment. Stone analysis ~100% ca ox monohydrate. Renal US 09/23/24 [facility] - Right kidney shows upper pole simple cyst measuring 2.4 x 2.1 x 2.3 cm, and mid pole cyst 1.5 x 0.9 x 1.5 cm. Left kidney shows simple pole cyst 1.0 x 1.1 x 1.2 cm. No hydro. KUB 09/23/24 [facility] - 8 x 3.4 cm calcification overlying [...] E&M of New Patient Moderate 45-59 Min 37014 Ur (more content not included)...[facility] CampusComment on above:Result Comment: Electronically Signed By: Maria Esther Mcdonough\.br\Date and Time Signed: 02/06/25 14:18 EDTXR ABDOMEN 1Von 23-66-5900[place], [place] [address] XRay Report Signed Patient: CHELSEA CURRY MR#: [id number] : 1945 Acct:[id number] Age/Sex: 79 / F ADM Date: 02/05/25 Loc: RAD Attending Dr: Maria Esther Sharp NP Ordering Physician: Maria Esther Sharp NP Date of Service: 02/05/25 Procedure(s): XR abdomen 1V Accession Number(s): [id number] cc: Maria Esther Sharp ATTENDANCE OFFICER; JARED HEDRICK [place] [address] Patient Name: CHELSEA CURRY MRN: [id number] date: 1945 Sex: F Assigned Patient Location: [facility] Current Patient Location: [facility] Accession/Order Number: [id number] Exam Date: 02/05/2025 09:48 Report Date: 02/05/2025 [...] Reardon Jr., D.O.02/05/2025 9:51 AM Dictation Location: [place] [address] Electronically authenticated by: [id number] Date: 02/05/2025 09:51 Dictated By: Owen Reardon M.D. Signed By: 02/05/25952 DD/ 0 TD/TT: Spinning Supervisor:TBHRadiology, Radiologist, MD - 02/05/2025 [place] [address] XRay Report Signed Patient: CHELSEA CURRY MR#: [id number] : 1945 Acct:[id number] Age/Sex: 79 / F ADM Date: 02/05/25 Loc: RAD Attending Dr: Maria Esther Sharp NP Ordering Physician: Maria Esther Sharp NP Date of Service: 02/05/25 Procedure(s): XR abdomen 1V Accession Number(s): [id number] cc: Maria Esther Sharp ATTENDANCE OFFICER; JARED HEDRICK [place] [id number] Patient Name: CHELSEA CURRY MRN: [id number] date: 1945 Sex: F Assigned Patient Location: [facility] Current Patient Location: [facility] Accession/Order Number: [id number] Exam Date: 02/05/2025 09:48 Report Date: 02/05/2025 [...] Reardon Jr., D.O.02/05/2025 9:51 AM Dictation Location: [place] [address] Electronically authenticated by: [id number] Y Date: 02/05/2025 09:51 Dictated By: Owen Reardon M.D. Signed By: 02/05/2553 DD/ 0 TD/TT: Spinning Supervisor: SHAWN HealthcareRadiology Study observation (narrative)[facility] HealthcareXR ABDOMEN 1VOrdered By: Radiologist Radiology on 89-94-3946KBBO Healthcare Work Phone: ambulatory Visit Summaryon 64-80-6100Qsstclroyu Visit SummaryAmbulatory Visit Summary CHELSEA CURRY :1945 Visit Date:09/30/2024 Ambulatory [...] Performed Cystoscopy (08/15/2024), Cystoscopy (07/30/2024), MULTISECTION LIMITED^WO CONTRAST:FIND:PT:ABDOMEN:DOC:CT (07/30/2024), Esophagogastroduodenoscopy (02/23/2024), Colonoscopy (01/30/2024), Esophagogastroduodenoscopy (01/30/2024), Colonoscopy (01/13/2017), Cystoscopy (04/27/2016), Cystoscopic removal of ureteric stent (04/20/2012), Cystoscopic insertion of ureteric stent (04/06/2012), ESWL - Extracorporeal shockwave lithotripsy for renal calculus (04/01/2012), Cystoscopy and retrograde pyelography(09/29/2010), ESWL - Extracorporeal shockwave lithotripsy for renal calculus (12/31/2009), ESWL - Ex tracorporeal shockwave lithotripsy for renal calculus (12/16/2009), Cystoscopic [...] HANNAH CHACON MD Where: [facility] [address], [address] [place] [address]- You Need to Schedule the Following Appointments [...] 1 Tablets By Mouth Every day Mejia's esophagusDuration: 90 Days Contact prescribing physician if questions or concerns Unchanged polyethylene glycol 3350 17 Gram By Mouth Every day Contact prescribing physician if questions or concerns Unchanged rivaroxaban (X (more content not included)...[facility] CampusUrology Office/Clinic Noteon 16-65-5278Rzcmedp Office/Clinic Note Urology Office/Clinic Note Chief Complaint [...] with voice recognition artificial intelligence software, specifically Notifo, BetterPet and or Coinex-IO. Substitutions may have occurred due to the inherent limitations of voice recognition and artificial intelligence software. 1. Ureteral stone with hydronephrosis (N13.2: Hydronephrosis with renal and ureteral calculous obstruction) Pt presented to [facility] ER 07/30/24 with L sided flank pain. Neg urine culture. Labs Cr 1.2, eGFR 45 CT AP wo con 07/30/24 - Approximately 7 x 4 x 3 mm proximal left ureteral calculus approximately 19cm superior to the left UVJ with mild left hydronephrosis. S/p cysto w/ L stent placement 07/30/24. Takes multivitamin that contains calcium. Pt presented to [facility] 08/09/24 with newly onset right-sided flank pain with N/V. CT AP wo con 08/09/24 [facility] - 4-5 mm calculus within the right distal ureter at the ureterovesicularjunction, with associated upstream mild to moderate right [...] and spoke with Dr. 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 Dr. Smith recommended admission for lithotripsy. S/p cysto, L URS, L laser litho, L stent placement 08/15/24. Findings ~4 mm mid ureteral stone lasered into small submillimeter fragments, intrarenal calculi less than 2 submillimeter fragment. Stone analysis ~100% ca ox monohydrate. Renal US 09/23/24 [facility] - Right kidney shows upper pole simple [...] and peripelvic cysts, unchanged. Renal US 09/23/24 [facility] - neg for nephrolithiasis. KUB 09/23/24 [facility] - neg for stones. Taking HCTZ 25 mg qd through PCP. See #1. 3. Gross hematuria (R31.0: Gross hematuria) S/p Cysto/UD 01/10/23 by [facility] - Severe bladder trabeculations, diffuse diverticuli, no aristides (more content not included)...[facility] CampusComment on above:Result Comment: Electronically Signed By: HANNAH CHACON MD\.br\Date and Time Signed: 09/30/24 10:28 EST\.br\Electronically Co- Signed By: Sandra Mcdonald\.br\Date and Time Co-Signed: 09/30/24 10:20 EST US Renalon [id number] RenalExam Date/Time: 09/23/2024 09:41 EST Reason for Exam: [...] Devang Ramirez MD Transcribed by: WERNER Technologist: [facility]XR [facility]en 1 Viewon [id number] Abdomen 1 ViewExam Date/Time: 09/23/2024 09:42 EST Reason for Exam: [...] Ka,r in mGy = na DAP = naNormalCaromont Healther [facility] CenterMain OR Intraoperative Recordon [id number] OR Intraoperative RecordMain OR Intraoperative Record IntraOp Document Type FT Summary Primary Physician: HANNAH CHACON MD Finalized Date/Time: 08/16/24 11:59:43 Pt. Name: CHELSEA CURRY Jamey Castillo/Sex: 1945 Female Med Rec #: [id number] Physician: HANNAH CHACON MD Financial #: [id number] Pt. Type: A Room/Bed: [place] [address] Admit/Disch: 08/15/24 08:14:52 - 08/15/24 13:10:00 Institution: [...] Anesthesiologist Surgeon - Primary Scrub - Primary Laborer/Key Man Time In 08/15/24 10:06:00 08/15/24 10:06:00 08/15/24 10:06:00 Time Out 08/15/24 11:10:00 08/15/24 11:20:00 08/15/24 11:20:00 Procedure CYSTOSCOPY RETROGRADE CYSTOSCOPY RETROGRADE CYSTOSCOPY RETROGRADE STENT INSERTION(Left) STENT INSERTION(Left) STENT INSERTION(Left) Comments DR. BRANDON DITCH REPAIRER Last Modified By: Dontrell López Ii, Alfons Ii Tommy Cuevasons Ii F 08/15/24 11:26:52 08/15/24 11:26:52 08/15/24 11:26:52 Entry 4 Entry 5 Entry 6 Case Attendee Dontrell López Ii, Bryce Funni FIELD SPECIALIST, Ramila Prajapati Role Performed Ribbon Inker - Primary Fire Inspector FIELD SPECIALIST Time In 08/15/24 10:06:00 08/15/24 10:06:00 08/15/24 11:09:00 Time Out 08/15/24 11:20:00 08/15/24 11:20:00 08/15/24 11:20:00 Procedure CYSTOSCOPY RETROGRADE CYSTOSCOPY RETROGRADE CYSTOSCOPY RETROGRADE STENT INSERTION(Left) STENT INSERTION(Left) STENT INSERTION(Left) Comments anesthesia relief Last Modified By: Dontrell López Ii, Alfons Ii F Maribel, Alfons Ii F 08/15/24 11:26:52 08/15/24 11:26:52 08/15/24 11:26:52 General Comments: MARIN CHAVEZ FROM [employer] IS IN ATTENDANCE. /MICHELL Perioperative Protocols FT [...] X-ray Applicable) PreOp Antibiotic Yes Time Out Anant CAA, Niko C., Given Participants ANA SILVER, Dea YOUNG NUCLEAR WASTE PROCESS OPERATOR, Ashanti Nicolas, Dontrell López Ii, Joshua Martin Time Out Complete 08/15/24 10:19:00 [...] Primary Procedure Yes No Primary Surgeon ANA SILVER, ANA SILVER, HANNAH YOUNG Start 08/15/24 10:20:00 [...] HEMATURIA, KIDNEY STONE LEFT Last Modified By: Dontrell López Ii 08/15/24 10:31:58 Post-Care Text: The patient is free from signs and (more content not included)...[facility] CampusCHEMISTRYOrdered By: Lab Eugenio on 17-31-5434Rqzmmkt [Mass/Vol]166 mg/sEKyha93 - 99 mg/dLINTEGRIS CANADIAN [facility]LEY [facility] POC SubsectionComment on above:Result Comment: Notified RN/RACHAEL Device [id number] 1Invalid Interpretation Code [facility] POC SubsectionPOC User [id number] 1Invalid Interpretation CodeINTEGR[facility] POC SubsectionPOC UsernameSPARKS, VICTORIAInvalid Interpretation CodeINTEGRIS [facility] POC SubsectionCOAGULATIONOrdered By: Sara Dubois on 75-44-7966jQME Coag (PPP) [Time]30.8 vUvliur55.1 - 36.5 second(s)[facility] Auto CoagComment on above: Interpretive Data: Parameter 15 days - 4 weeks 1 - [...] the same coagulation reagent and instrumentation as [facility]. Currently there are no coagulation studies available worldwide for children to 14 days, andno normal ranges. Heparin therapeutic range (represented by Anti-Factor Xa activity of 0.2 - 0.4 U/mL) corresponds to PTT of 56.6 - 109.0 sec.INR Coag (PPP) [Relative time]0.91 {INR}Invalid Interpretation CodeINTEGRIS CANA[facility]AN [facility] Auto CoagComment on above:Interpretive Data: INR results are specifically intended to assess patients stabilized on long-term Anticoagulation therapy suggested INR s Less Intensive Anticoagulation 2.0 3.0 Conventional Range 3.0 4.5PT Coag (PPP) [Time]10.2 sNormal9.4 - 12.5 second(s) [facility] Auto CoagComment on above:Interpretive Data: 15 days - 4 weeks 1 - [...] the same coagulation reagent and instrumentation as [facility]. Currently there are no coagulation studies available worldwide for children to 14 days, andno normal ranges.Capillary Glucose POCon 54-23-7733Tzflkrv [Mass/Vol]166 mg/dLHigh 55-99Fisher [facility]c Western MarylandComment on above:Result Comment: Notified RN/MD Performed By: #### [id number] #### [facility] [address], [place] [address]Owwefwrde Instructionson 18-50-9000Kuanlpuma Instructions Discharge Instructions CHELSEA CURRY :1945 Visit Date:08/15/2024 Inpatient Discharge [...] ÁNGELA JUAREZ PA-C Where: [facility] [address] [place] [address] [place] [address]- New Follow Up Appointments after Discharge Follow Up with HANNAH CHACON When: Comments: Call for followup appointment Where: [address] [place] [address] [phone] Business (1) Medications What How Much When Why Instructions Next Dose New tramadol (traMADOL 50 mg Tab) 1 Tablets By Mouth Every 12 hours as needed for for pain Pickup at [facility]/pharmacy #[id number] Changed tamsulosin (Flomax 0.4 mg Cap) 1 Capsules By Mouth Every day Pickup at [facility]/pharmacy #[id number] Changed tamsulosin (tamsulosin 0.4 mg Cap) [...] 1 Tablets By Mouth Every day Mejia's esophagusDuration: 90 Days Unchanged polyethylene glycol 3350 17 Gram By Mouth Every day Unchanged rivaroxaban (Xarelto 20 mg oral tablet) 1 Tablets By Mouth Every day Unchanged semaglutide (Rybelsus 14 mg oral tablet) 14 Milligram By Mouth Every day Unchanged simvastatin See instructions 20 mg Oral Monday, Monday, Monday Pharmacy Information [facility]/pharmacy #[id number]: [address], [place] [phone] Allergies Demerol (hyper) Ketek (Unknown) Nubain (rash) [...] is a specifically designed hollow tube made offlexible plastic about 25-30 cm long. It is [...] common for the stent (more content not included)...[facility] CampusComment on above:Result Comment: Electronically Signed By: Harpreet HOLLAND, Sirena Boyer\.br\Date and Time Signed: 08/15/24 12:07 EDTInpatient Patient Summaryon [id number] Patient SummaryInpatient Patient Summary [address] [address] [facility] Clinical Discharge Instructions PERSON INFORMATION Name: CHELSEA CURRY PHYSICIANS Admitting Physician: HANNAH CHACON MD Attending Physician: JOAQUIN CHACON MDABENA PCP: FLORIDALMA SILVER, JARED Concepcion Discharge Diagnosis: Comment: PATIENT EDUCATION INFORMATION Instructions: Kidney Stones Medication Leaflets: Follow up: Type Location Start Finish State URO Office Visit [facility] [place] 09/10/2024 2:40 PM 09/10/2024 3:00 PM Confirmed MEDICATION LIST New Medications [id number], [address], [place] [id number], [phone] tramadol (traMADOL 50 mg Tab) 1 Tablets By Mouth every 12 hours as needed for pain. Refills: 0. Medications to Continue Taking That Have Changed [id number], [address], [place] [phone], [phone] START: tamsulosin (Flomax 0.4 mg Cap) 1 [...] simvastatin 20 mg Oral Monday, Monday, Monday. Comment:[facility] CampusMain OR PACU I Recordon [id number] OR PACU I RecordMain OR PACU I Record PACU Phase I Document Type FT Summary Primary Physician: HANNAH CHACON MD Finalized Date/Time: 08/15/24 12:17:13 Pt. Name: CHELSEA CURRY Jamey ChanB./Sex: 1945 Female Med Rec #: [id number] Physician: HANNAH CHACON MD Financial #: [id number] Pt. Type: A Room/Bed: [place] [address] Admit/Disch: 08/15/24 08:14:52 - Institution: Case Times [...] individualized perioperative plan of care The patient's rightto privacy is maintained The patient's value system, [...] with or improved from baseline levels established preoperativelyThe patient's cardiovascular status is consistent with or improved from baseline levels established preoperatively The patient's cardiovascular status is consistent with or improved from baseline levels established preoperatively The patient demonstrates and/or reports adequate pain control throughout the perioperative period The patient received appropriate medication(s), safely administered during the perioperativeperiod Acuity Level PACU I FT Entry 1 Start Time 08/15/24 11:26:00 Stop Time 08/15/24 11:56:00 Acuity Level Acuity Level I Last Modified By: Ayaka Cornell RN 08/15/24 12:17:08 Finalized By: Ayaka Cornell RN Document Signatures Signed By: Ayaka Cornell RN 08/15/24 12:17[facility] CampusMain OR PACU II Recordon [id number] OR PACU II RecordMain OR PACU II Record PACU Phase II Document Type FT Summary Primary Physician: HANNAH CHACON MD Finalized Date/Time: 08/15/24 13:05:49 Pt. Name: CHELSEA CURRY Jamey ChanB./Sex: 1945 Female Med Rec #: [id number] Physician: HANNAH CHACON MD Financial #: [id number] Pt. Type: A Room/Bed: [place] [address] Admit/Disch: 08/15/24 08:14:52 - Institution: Case Times [...] and monitors body temperature Evaluates postoperative respiratory statusEvaluates postoperative cardiac status Evaluates postoperative neurological status [...] individualized perioperative plan of care The patient's rightto privacy is maintained The patient's value system, [...] with or improved from baseline levels established preoperativelyThe patient's cardiovascular status is consistent with or improved from baseline levels established preoperatively The patient's neurological status is consistent with or improved from baseline levels established preoperatively The patient demonstrates and/or reports adequate pain control throughout the perioperative period The patient received appropriate medication(s), safely administered during the perioperativeperiod Finalized By: Sirena Mullins RN Document Signatures Signed By: Sirena Mullins RN 08/15/24 13:05[facility] CampusMain OR Preoperative Recordon [id number] OR Preoperative RecordMain OR Preoperative Record PreOp Document Type FT Summary Primary Physician: HANNAH CHACON MD Finalized Date/Time: 08/15/24 10:28:33 Pt. Name: CURRYCHELSEA/Sex: 1945 Female Med Rec #: [id number] Physician: HANNAH CHACON MD Financial #: [id number] Pt. Type: A Room/Bed: Admit/Disch: 08/15/24 08:14:52 [...] Signatures Signed By: Dontrell López Ii 08/15/24 10:28[facility] CampusOperative Reporton [id number] ReportOperative Report Patient: CHELSEA CURRY Age: 79 years [...] in the room agreed. A well-lubricated 22 Afghan scopic sheath with 30 lens was set [...] bladder. We then went up into the kidneyand did a [place] pyeloscopy where we found [...] with renal ultrasound, KUB prior to office visit.Normal [facility] HospitalComment on above:Result Comment: Electronically Signed By: ANA SILVER, HANNAH\.br\Date and Time Signed: 08/15/24 13:06 EDTOutpatient Surgery Discharge Instructionon [id number] Surgery Discharge InstructionOutpatient Surgery Discharge Instruction [place] [address] Patient Discharge Instructions PERSON INFORMATION Name: CHELSEA [...] NEAREST EMERGENCY ROOM OR CALL 911 PATRICIO Ch LINDA L, have received the attached patient education materials/instructions and have verbalized understanding: May we do a follow up call? Yes No I was present when discharge instructions were given Patient Signature Date Clinican/Nurse Signature Date Follow up: Type Location Start Finish State URO Office Visit [facility] [place] 09/10/2024 2:40 PM 09/10/2024 3:00 PM Confirmed Pharmacy Information: You may receive a survey from [employer] asking you to rate your care experience. Your feedback is important and will help us understand what we do well and how we can improve the quality of care we provide to you, your loved ones and our community. It?s an honor to serve you. Thank you for choosing [facility] HERE ARE THE MEDICATION CHANGES THAT OCCURRED DURING YOUR HOSPITAL STAY New Medications [id number], [address] [facility] [place], [place] [id number], [phone] tramadol (traMADOL 50 mg Tab) 1 Tablets By Mouth every 12 hours as needed for pain. Refills: 0. Medications to Continue Taking That Have Changed [facility]/pharmacy #6158, [address], [place] [id number], [phone] START: tamsulosin (Flomax 0.4 mg Cap) 1 [...] is a specifically designed hollow tube made offlexible plastic about 25-30 cm long. It is [...] urine, whilst you have (more content not included)...[facility] CampusPT & PTTon 27-24-3519zHIW Coag (PPP) [Time]30.8 second(s)Normal 25.1-36.5Fbal [facility] MarylandComment on above:Result Comment: Parameter 15 days - 4 weeks 1 - [...] the same coagulation reagent and instrumentation as [facility]. Currently there are no coagulation studies available worldwide for children to 14 days, andno normal ranges. Heparin therapeutic range (represented by Anti-Factor Xa activity of 0.2 - 0.4 U/mL) corresponds to PTT of 56.6 - 109.0 sec.Performed By: #### [id number] #### [facility] [address], [place] [address]NFU Coag (PPP) [Relative time]0.91 {INR}Invalid Interpretation [facility] HospitalComment on above:Result Comment: INR results are specifically intended to assess patients stabilized on long-term Anticoagulation therapy suggested INR?s ?Less Intensive Anticoagulation? 2.0 ? 3.0 Conventional Range 3.0 ? 4.5Performed By: #### [id number] #### [facility] [address], [place] [address]BZ Coag (PPP) [Time]10.2 second(s)Normal9.4-12.5Fisher [facility] Western MarylandComment on above:Result Comment: 15 days - 4 weeks 1 - 5 months 6 -11 months 1 ? 5 years 6 ? 10 years 11 -17 years Mean: 11.2 (9.5 ? 12.6) Mean: 11.0 (9.7 ? 12.8) Mean: 11.0 (9.8 ? 13.0) Mean: 11.3 (9.9 ? 13.4) Mean: 11.7 (10.0 ? 14.6) Mean: 11.8 (10.0 - 14.1) Pediatric Reference ranges were obtained from a study by tadeo Nieves al. prepared from 1437 samples obtained at 7 different centers using the same coagulation reagent and instrumentation as [facility]. Currently there are no coagulation studies available worldwide for children to 14 days, andno normal ranges.Performed By: #### [id number] #### [facility] [address], [place] [address]Tdwyxmcdegzw 50-22-0127NvouixrfafMbvgqkddbl Patient: CHELSEA CURRY Age: 79 years Sex: Female : 1945 Associated Diagnoses: None Author: Aleksandr SILVER, Jaron Rea Postoperative Information Postoperative disposition: Postoperative disposition: To PACU. Optimetrix number: Optimetrix number [id number]. Anesthetic utilized: General. Health Status Allergies: Allergic [...] Discharge when meets criteria ( To home ).[facility] CampusProceduralProcedural Patient: CHELSEA CURRY Age: 79 years Sex: [...] mL: 2 gram = 1 EA, Powder-Inj, IVPiggyback, Once, Stop date 08/15/24 8:00:00 EDT, Routine, Start date 08/15/24 8:00:00 EDT, 100 mL/hr, Infuse over 30 minute(s), HOLD if patient has history of anaphylactic allergic reaction to Penicillin Prescriptions Prescribed Linzess 145 mcg oral capsule: 145 mcg = 1 cap(s), Oral, Daily, # 30 cap(s), Refills(s) 4, Pharmacy:[facility]/pharmacy #[id number], 165, cm, 07/24/24 12:20:00 EDT, Height/Length Dosing, 64, kg, 07/24/24 12:20:00EDT, Weight Dosing Pantoprazole [address] Tab: 40 mg = 1 tab(s), Oral, Daily, X 90 day(s), # 90 tab(s), Refills(s) 2, Pharmacy: [facility], 162.5, cm, 01/17/24 14:37:00 EDT, Height/Length Dosing, 67, kg, 01/17/24 14:37:00 EDT, Weight Dosing tamsulosin 0.4 mg Cap: 0.4 mg = 1 cap(s), Oral, Bedtime, Discuss refilling with Dr Eldridge at your procedure visit with him., X 7 day(s), # 7 cap(s), Refills(s) 0, [id number] 165, cm, 08/09/24 8:35:00 EDT, Height/Length [...] Daily polyethylene glycol 335 (more content not included)...[facility] CampusComment on above:Result Comment: delete per Dr BrandonProceduralProcedural Patient: CHELSEA CURRY Age: 79 years Sex: [...] mL: 2 gram = 1 EA, Powder-Inj, IVPiggyback, Once, Stop date 08/15/24 8:00:00 EDT, Routine, Start date 08/15/24 8:00:00 EDT, 100 mL/hr, Infuse over 30 minute(s), HOLD if patient has history of anaphylactic allergic reaction to Penicillin Prescriptions Prescribed Linzess 145 mcg oral capsule: 145 mcg = 1 cap(s), Oral, Daily, # 30 cap(s), Refills(s) 4, Pharmacy:[facility]/pharmacy #[id number], 165, cm, 07/24/24 12:20:00 EDT, Height/Length Dosing, 64, kg, 07/24/24 12:20:00EDT, Weight Dosing Pantoprazole [address] Tab: 40 mg = 1 tab(s), Oral, Daily, X 90 day(s), # 90 tab(s), Refills(s) 2, Pharmacy: [facility], 162.5, cm, 01/17/24 14:37:00 EDT, Height/Length Dosing, 67, kg, 01/17/24 14:37:00 EDT, Weight Dosing tamsulosin 0.4 mg Cap: 0.4 mg = 1 cap(s), Oral, Bedtime, Discuss refilling with Dr Eldridge at your procedure visit with him., X 7 day(s), # 7 cap(s), Refills(s) 0, Pharmacy: [facility]/pharmacy #[id number], 165, cm, 08/09/24 8:35:00 EDT, Height/Length [...] 20 mg oral ta (more content not included)...[facility] CampusXR Chest 2 Viewson [id number] Chest 2 ViewsExam Date/Time: 08/15/2024 08:28 EDT Reason for Exam: [...] Ka,r in mGy = na DAP = naNorWayne HospitalC Urineon [id number] identified Cx Nom (U)Microbiology PROCEDURE: Urine Culture [R1] SOURCE: U CleanCatch BODY SITE: COLLECTED DATE/TIME: 08/09/2024 09:41 EDT RECEIVED DATE/TIME: 08/09/2024 11:12 EDT START DATE/TIME: 08/09/2024 11:12 EDT FREE TEXT SOURCE: Stu HERNANDEZ, Salvador Reed. Stu HERNANDEZ, Salvador C. FINAL REPORTS Final Report [] Verified Date/Time: 08/11/2024 08:47 EDT 2,000 cfu/ml Mixed skin contaminants Performing Locations R1: This test was performed at: [facility], [address] [place] [address], [id number] , [place], CknwtvCpocosPromedica Defiance Regional HospitalComment on above:Performed By: #### [id number] #### [facility] [address] [place] [address]IWOvw 28-84-5090Rejam gap [Moles/Vol]8 mmol/LNormal6-16[facility] HospitalComment on above:Performed By: #### [id number] #### [facility] [address] [place] [address]Ysmciks [Mass/Vol]8.8 mg/dLLow8.9-11.1FCleveland Clinic Hillcrest HospitalComment on above:Performed By: #### [id number] #### [facility] [address] [place] [address]Mikydcmc [Moles/Vol]107 mmol/CDcenwl094-194SlpfowPromedica Defiance Regional HospitalComment on above:Performed By: #### [id number] #### [facility] [address] [place] [address] 24[address]OL2 [Moles/Vol]28 mmol/HGukuij73-99SvlkviPromedica Defiance Regional Hospital Comment on above:Performed By: #### [id number] #### [facility] [address] [place] [address]18[address]Ftycqaauit [Mass/Vol]0.8 mg/dLNormal0.5-1.3FCleveland Clinic Hillcrest HospitalComment on above:Performed By: #### [id number] #### [facility] [address] [place] [address] 85[address]Icxsvhk [Mass/Vol]177 mg/nWJcbixb53-998OikhgxPromedica Defiance Regional HospitalComment on above:Performed By: #### [id number] #### [facility] [address] [place] [address]Pijaqxpna [Moles/Vol]3.6 mmol/LNormal3.5-5.3FCleveland Clinic Hillcrest HospitalComment on above:Performed By: #### [id number] #### [facility] [address] [place] [address] 5[address]Pbakml [Moles/Vol]139 mmol/XCllowr248-525LlhgajPromedica Defiance Regional HospitalComment on above:Performed By: #### [id number] #### [facility] [address], [place] [address]Jhyp nitrogen [Mass/Vol]17 mg/dLNormal5-21[facility] HospitalComment on above:Performed By: #### [id number] #### [facility] [address] [place] [address] 11422Fkon nitrogen/Creatinine [Mass ratio]21 No ZqdpfXgif81-07XmwfarPromedica Defiance Regional HospitalComment on above:Performed By: #### [id number] #### [facility] [address] [place] [address]VYH w/ Auto Diffon 90-31-3700Wgdddrazf/100 WBC (Bld)0.8 %Normal 0.0-2.0[facility] HospitalComment on above:Performed By: #### [id number] #### [facility] [address] [place] [address] 38689Lselxgfkl/Leukocytes Auto (Bld) [Pure # fraction]0.1 E9/LNormal 0.0-0.2FCleveland Clinic Hillcrest HospitalComment on above:Performed By: #### [id number] #### [facility] [address] [place] [address] 807[address]Icornaykwmv (Bld) [#/Vol]0.0 E9/LNormal0.0-0.5FCleveland Clinic Hillcrest HospitalComment on above:Performed By: #### [id number] #### [facility] [address] [place] [address] 217[address]Wraabdwbcph/100 WBC (Bld)0.5 %Normal0.0-8.0[facility] HospitalComment on above:Performed By: #### [id number] #### [facility] [address] [place] [address]Eakpmcxdgov distribution width (RBC) [Ratio]13.9 %Normal 10.9-14.2FCleveland Clinic Hillcrest HospitalComment on above:Performed By: #### [id number] #### [facility] [address] [place] [address] 588[address]Ltajjcqqrn (Bld) [Volume fraction]37.5 %Cwmqny50.0-46.0[facility] HospitalComment on above:Performed By: #### [id number] #### [facility] [address] [place] [address]89[address]Zhopfetxhj (Bld) [Mass/Vol]12.8 g/cFKwbvad55.0-16.0[facility] HospitalComment on above:Performed By: #### [id number] #### [facility] [address] [place] [address]45[address]Hblbhayyzbi (Bld) [#/Vol]0.8 E9/LLow1.0-4.0[facility] HospitalComment on above:Performed By: #### [id number] #### [facility] [address] [place] [address] 033[address]Yxpxdtudbgm/100 WBC (Bld)9.5 %Low14.0-50.0[facility] HospitalComment on above:Performed By: #### [id number] #### [facility] [address] [place] [address] 626[address]AOZ (RBC) [Entitic mass]32.2 fgUorgkx88.0-34.0[facility] HospitalComment on above:Performed By: #### [id number] #### [facility] [address] [place] [address] 68[address]TAKK (RBC) [Mass/Vol]34.1 g/hIQogmot78.4-36.0[facility] HospitalComment on above:Performed By: #### [id number] #### [facility] [address] [place] [address] 16359ACC (RBC) [Entitic vol]94.3 zKBfklkp02.0-100.0[facility] HospitalComment on above:Performed By: #### [id number] #### [facility] [address] [place] [address] 66665Hqdyybxse (Bld) [#/Vol]0.7 E9/LNormal0.2-1.0[facility] HospitalComment on above:Performed By: #### [id number] #### [facility] [address] [place] [address] 42869Bsqcryjprbp (Bld) [#/Vol]6.7 E9/LNormal2.0-7.5FCleveland Clinic Hillcrest HospitalComment on above:Performed By: #### [id number] #### [facility] [address] [place] [address] 72301Vzvsgujzjme/100 WBC (Bld)81.1 %High36.0-75.0[facility] HospitalComment on above:Performed By: #### [id number] #### [facility] [address] [place] [address] 65958Kgkblvnp mean volume (Bld) [Entitic vol]8.2 fLNormal6.4-10.8 [facility] HospitalComment on above:Performed By: #### [id number] #### [facility] [address] [place] [address] 99747Kdgzhhsvj (Bld) [#/Vol]198.0 E9/CMcnnha876.0-500.0[facility] HospitalComment on above:Performed By: #### [id number] #### [facility] [address] [place] [address] 81463IOK (Bld) [#/Vol]4.0 E12/LLow4.3-5.9[facility] Comment on above:Performed By: #### [id number] #### [facility] [address] [place] [address] 06404QYZ corrected for nucl RBC Auto (Bld) [#/Vol]8.2 E9/LNormal 4.0-11.0[facility] HospitalComment on above:Performed By: #### [id number] #### [facility] [address] [place], [place] [address]SVVOAVNVHNfospgu By: SYSTEM SYSTEM on 02-60-8189Dpkkg gap [Moles/Vol]8 mmol/LNormal6 - 16 mEq/LRemisol ChemCalcium [Mass/Vol]8.8 mg/dLLow 8.9 - 11.1 mg/dLRemisol ChemChloride [Moles/Vol]107 mmol/TKyompj914 - 111 mmol/L Remisol ChemCO2 [Moles/Vol]28 mmol/LXwjwrf33 - 31 mmol/LRemisol ChemCreatinine [Mass/Vol]0.8 mg/dLNormal0.5 - 1.3 mg/dLRemisol AohxvCOA21 mL/min/1.73 c7Inkqbv >=59mL/min/1.73 i9Tgrsjhs ChemGlucose [Mass/Vol]177 mg/zULlugkd40 - 199 mg/dL Remisol ChemMagnesium [Mass/Vol]1.8 mg/dLNormal1.3 - 2.4 mg/dLRemisol Chem Potassium [Moles/Vol]3.6 mmol/LNormal3.5 - 5.3 mmol/LRemisol ChemSodium [Moles/Vol]139 mmol/BOznsae867 - 145 mmol/LRemisol ChemUrea nitrogen [Mass/Vol] 17 mg/dLNormal5 - 21 mg/dLRemisol ChemUrea nitrogen/Creatinine [Mass ratio]21 mg/xpWawx47 - 20Remisol ChemHEMATOLOGYOrdered By: SYSTEM SYSTEM on 08-10-2024 Basophils/100 WBC (Bld)0.8 %Normal0.0 - 2.0 %Remisol HemeBasophils/Leukocytes Auto (Bld) [Pure # fraction]0.1 E9/LNormal0.0 - 0.2 E9/LRemisol HemeEosinophils (Bld) [#/Vol]0.0 E9/LNormal0.0 - 0.5 E9/LRemisol HemeEosinophils/100 WBC (Bld) 0.5 %Normal0.0 - 8.0 %Remisol HemeErythrocyte distribution width (RBC) [Ratio] 13.9 %Zuhsfg84.9 - 14.2 %Remisol HemeHematocrit (Bld) [Volume fraction]37.5 % Pyxtuy39.0 - 46.0 %Remisol HemeHemoglobin (Bld) [Mass/Vol]12.8 g/bVGklohp93.0 - 16.0 gm/dLRemisol HemeLymphocytes (Bld) [#/Vol]0.8 E9/LLow1.0 - 4.0 E9/LRemisol HemeLymphocytes/100 WBC (Bld)9.5 %Low14.0 - 50.0 %Remisol HemeMCH (RBC) [Entitic mass]32.2 rcPaxibg41.0 - 34.0 pgRemisol HemeMCHC (RBC) [Mass/Vol]34.1 g/dL Qhubgq08.4 - 36.0 gm/dLRemisol HemeMCV (RBC) [Entitic vol]94.3 cBNqpbiu99.0 - 100.0 fLRemisol HemeMonocytes (Bld) [#/Vol]0.7 E9/LNormal0.2 - 1.0 E9/LRemisol HemeMonocytes/100 WBC (Bld)8.1 %Normal4.0 - 14.0 %Remisol HemeNeutrophils (Bld) [#/Vol]6.7 E9/LNormal2.0 - 7.5 E9/LRemisol HemeNeutrophils/100 WBC (Bld)81.1 % High36.0 - 75.0 %Remisol HemePlatelet mean volume (Bld) [Entitic vol]8.2 fL Normal6.4 - 10.8 fLRemisol HemePlatelets (Bld) [#/Vol]198.0 E9/YPutemb322.0 - 500.0 E9/LRemisol HemeRBC (Bld) [#/Vol]4.0 E12/LLow4.3 - 5.9 E12/LRemisol Heme WBC corrected for nucl RBC Auto (Bld) [#/Vol]8.2 E9/LNormal4.0 - 11.0 E9/L Remisol HemeInpatient Clinical Summaryon [id number] Clinical Summary Inpatient Clinical Summary [address] [address] Clinical Summary Person Information: Name: CHELSEA CURRY Age: 79 Years : 1945 Sex: Female PCP: JARED HEDRICK MD Marital Status: Race: White Ethnicity: Non- or Language: Swedish Visit Id: Visit Reason: Vomiting; Nausea; Abdominal pain; VOMITING,ABD PAIN Speciality: Acuity: Enc Type: Inpatient Med Service: Medical Arrival: 08/09/2024 08:27:53 Discharge: Dispo Type: Admitted as IP to this Hosp Address: [address] [place] [phone] Provider Notes: Diagnosis: 1:Pyelonephritis; 2:Hydronephrosis with renal [...] mmHg BMI: 23.29 kg/m2 Procedures MULTISECTION LIMITED^WO CONTRAST:FIND:PT:ABDOMEN:DOC:CT (07/30/2024) Esophagogastroduodenoscopy (02/23/2024) Immunizations No Immunizations Documented This Visit [...] Follow up: With: Address: When: Rashida ELDRIDGE [address] [facility] [place] [address] Business (1) Comments: Keep scheduled appointment for outpt. procedure With: Address: When: [address], [address] [place] [address] Business (1) Within 2 to 4 da (more content not included)... [facility] CampusInpatient Patient Summaryon [id number] Patient SummaryInpatient Patient Summary CHELSEA CURRY :1945 Visit Date:08/09/2024 Inpatient Discharge Instructions Your Care Team Admitting Physician - Mart Luna MD Consulting Physician - Juan Alberto SMITH MD Reason for Your Visit abdominal pain, kidney [...] Cap) Procedure History Cystoscopy (07/30/2024), MULTISECTION LIMITED^WO CONTRAST:FIND:PT:ABDOMEN:DOC:CT [...] (12/16/2009), Cystoscopic laser lithotripsy of ureteric calculus (08/18 09), Cystoscopic removal of ureteric stent (07/30/2009), Cystoscopic [...] Appointments 2023 8:30 AM EDT With: Where: [facility] Monday 2:40 PM EST With: DEBBIE HERNANDEZ, ÁNGELA Barrios Where: [facility] [address] [place] [address] [place] [address]- New Follow Up Appointments after Discharge Follow Up with Rashida ELDRIGDE When: Comments: Keep scheduled appointment for outpt. procedure Where: [address] [facility] [place] [address]- Business (1) Follow Up with JARED HEDRICK When: Within 2 to 4 days Where: [address] [facility] [address] [place] [address]- Business (1) Follow Up with Bob De Jesus When: Where: [address] [place] [phone] Business (1) Medications What How Much When Why Instructions Next Dose New acetaminophen (acetaminophen 325 mg Tab) 2 Tablets By Mouth Every 8 hours 08/10/24 1pm New acetaminophen (acetaminophen 325 mg Tab (more content not included)...Normal [facility] HospitalInpatient Patient SummaryInpatient Patient Summary [address] [address] Patient Discharge Instructions PERSON INFORMATION Name: CHELSEA CURRY Date of : 1945 Current Date: 08/10/2024 09:52:30 PHYSICIANS Admitting Physician: Cheryl SILVER, Mart Canales Primary Care Physician: JARED HEDRICK MD PCP Comment: Discharge Diagnosis: 1:Pyelonephritis; 2:Hydronephrosis with renal calculous obstruction; 3:Nausea & vomiting; 4:Smoker; 5:Hypertension; 6:Hyperlipidemia; 7:Hypothyroidism; 8:Chronic GERD; 9:Chronic diarrhea; 10:History of pulmonary embolism; 11:On deep vein thrombosis (DVT) prophylaxis Condition at Discharge: CHELSEA Romero has been given the following list of [...] TO THE NEAREST EMERGENCY ROOM OR CALL [facility] Home Treatment: Devices/Equipment: None Special Services: Additional Instructions: Keep you pending procedure appt with urology and follow all instructions they gave you for pre-procedure medications Call PCP on monday for final urine and blood culture results Follow up appts as written Primary Care Physician to provide the following pending test results: Urine culture, Blood culture,Other: Stone analysis Follow up: With: Address: When: Rashida ELDRIDGE [address] [place] [address], [place] [address] Business (1) Comments: Keep scheduled appointment for outpt. procedure With: Address: When: JARED HEDRICK [address] [facility], [address] [place] [address] Business (1) Within 2 to 4 days With: Address: When: Bob De Jesus [address] [place] [phone] Business (1) In the event that this physician does not participate in your insurance network, please consult with your insurance company to find a nearby participating provider. Type Location Start Finish State Secured Appointment Type Secured Location 08/15/2024 8:30 AM 08/15/2024 9:45 AM Confirmed URO Office Visit [facility] Saleh 09/10/2024 2:40 PM 09/10/2024 3:00 PM Confirmed Comment: PATRICIO Ch LINDA L, have received the attached patient education materials/instructions and have verbalized understanding: Patient Signature Date Clinican/Nurse Signature Date HERE ARE THE MEDICATION CHANGES THAT OCCURRED DURING YOUR HOSPITAL STAY New Medications [id number], [address] [facility] [place] [id number], [phone] cefdinir (cefdinir 300 mg Cap) 1 Capsules [...] 1 Tablets By Mouth every day. May resumeon 08/11. Last Dose: Next Dose: STOP: hydrochlorothiazide [...] Next Dose: pantoprazole (Pantoprazole [address] Ian) (more content not included)...Normal [facility] HospitalInterdisciplinary Note - Nursingon 08-10-2024 Interdisciplinary Note - NursingInterdisciplinary Note - Nursing This RN spoke with Dr. Smith. Dr. Smith made aware that patient passed kidney stone this morning. orders that patient will be able to eat breakfast and NPO order can be cancelled. Dr. Smith reports that hospitalist may discharge patient home today. Dr. Smith reports that he will call surgery team to cancel this morning.[facility] CampusInterdisciplinary Note - Nursing Interdisciplinary Note - Nursing Patient up to bathroom and passed stone this morning. Dr. Smith has been paged. Waiting for call back at this time.[facility] CampusMagnesiumon 82-18-4594Xtaqnecpl [Mass/Vol]1.8 mg/dLNormal1.3-2.4[facility] Comment on above:Performed By: #### [id number] #### [facility] [address] [place], [place] [address]tMZHvk 42-45-0650qXOP04 mL/min/1.73 r8Vjousu>=59[facility] HospitalComment on above:Performed By: #### [id number] #### [facility] [address] [place], [place] [address]UYPex 08-95-1642Jxqlx gap [Moles/Vol]16 mmol/LNormal6-16[facility] HospitalComment on above:Performed By: #### [id number] #### [facility] [address] [place], [place] [address]Yjpxhcu [Mass/Vol]9.7 mg/dLNormal8.9-11.1FC[facility] Hill[facility] HospitalComment on above:Performed By: #### [id number] #### [facility] [address] [place], [place] [address]Svdcvisp [Moles/Vol]102 mmol/EClvcab642-134NbgiayPromedica Defiance Regional HospitalComment on above:Performed By: #### [id number] #### [facility] [address] [place], [place] [address]SY2 [Moles/Vol]24 mmol/NCqcojs52-34XbufxiPromedica Defiance Regional Hospital Comment on above:Performed By: #### [id number] #### [facility] [address] [place], [place] [address]Jnrkglzgro [Mass/Vol]0.9 mg/dLNormal0.5-1.3FC[facility] HospitalComment on above:Performed By: #### [id number] #### [facility] [address] [place], [place] [address]Mxyljnv [Mass/Vol]243 mg/oYWvcv39-278LpsqkwPromedica Defiance Regional HospitalComment on above:Performed By: #### [id number] #### [facility] [address] [place], [place] [address]Elmjctpni [Moles/Vol]3.6 mmol/LNormal3.5-5.3FC[facility] HospitalComment on above:Performed By: #### [id number] #### [facility] [address] [place], [place] [address]Xzedux [Moles/Vol]138 mmol/BWeqows383-144SvrnyhPromedica Defiance Regional HospitalComment on above:Performed By: #### [id number] #### [facility] [address] [place], [place] [address]Vegm nitrogen [Mass/Vol]20 mg/dLNormal5-21[facility] HospitalComment on above:Performed By: #### [id number] #### [facility] [address] [place], [place] [address]Zgwo nitrogen/Creatinine [Mass ratio]22 No GblvkWqge24-26WydnbvPromedica Defiance Regional HospitalComment on above:Performed By: #### [id number] #### [facility] [address] [place], [place] [address]ZON w/ Auto Diffon 42-21-6337Zlvfdargc/100 WBC (Bld)0.7 %Normal 0.0-2.0[facility] HospitalComment on above:Performed By: #### [id number] #### [facility] [address] [place] [address]Zkdolwfni/Leukocytes Auto (Bld) [Pure # fraction]0.1 E9/LNormal 0.0-0.2FC[facility] HospitalComment on above:Performed By: #### [id number] #### [facility] [address] [place] [address]Muhnsqnwlfo (Bld) [#/Vol]0.0 E9/LNormal0.0-0.5FC[facility] HospitalComment on above:Performed By: #### [id number] #### [facility] [address] [place] [address] 18489Nidyoaphcpu/100 WBC (Bld)0.1 %Normal0.0-8.0[facility] HospitalComment on above:Performed By: #### [id number] #### [facility] [address] [place] [address]Uvrhlgshsvj distribution width (RBC) [Ratio]13.6 %Normal 10.9-14.2FC[facility] HospitalComment on above:Performed By: #### [id number] #### [facility] [address] [place] [address]82[address]Fysdkdzwhc (Bld) [Volume fraction]42.1 %Hraddc03.0-46.0[facility] HospitalComment on above:Performed By: #### [id number] #### [facility] [address] [place] [address]Kqzpvwlxit (Bld) [Mass/Vol]14.7 g/eEUrxran22.0-16.0[facility] HospitalComment on above:Performed By: #### [id number] #### [facility] [address] [place] [address] 713[address]Jgqawyzuolq (Bld) [#/Vol]0.6 E9/LLow1.0-4.0[facility] HospitalComment on above:Performed By: #### [id number] #### [facility] [address] [place] [address] 90304Cgdzwjnvjae/100 WBC (Bld)6.6 %Low14.0-50.0[facility] HospitalComment on above:Performed By: #### [id number] #### [facility] [address] [place] [address] 614[address]DPW (RBC) [Entitic mass]32.7 jaBnnbuh47.0-34.0[facility] HospitalComment on above:Performed By: #### [id number] #### [facility] [address] [place] [address]HMTT (RBC) [Mass/Vol]34.9 g/tQYedobd13.4-36.0[facility] HospitalComment on above:Performed By: #### [id number] #### [facility] [address] [place] [address] 55967VAM (RBC) [Entitic vol]93.9 uCLubjey46.0-100.0[facility] HospitalComment on above:Performed By: #### [id number] #### [facility] [address] [place] [address] 55[address]Hxkzrpmdt (Bld) [#/Vol]0.4 E9/LNormal0.2-1.0[facility] HospitalComment on above:Performed By: #### [id number] #### [facility] [address] [place] [address]Ssxkaxshxac (Bld) [#/Vol]8.5 E9/LHigh2.0-7.5FC[facility] Hill[facility]st HospitalComment on above:Performed By: #### [id number] #### [facility] [address] [place] [address]60[address]Dzaftrxsaoo/100 WBC (Bld)88.8 %High36.0-75.0[facility] HospitalComment on above:Performed By: #### [id number] #### [facility] [address] [place], [place] [address]Ftnifyme mean volume (Bld) [Entitic vol]8.1 fLNormal6.4-10.8 [facility] HospitalComment on above:Performed By: #### [id number] #### [facility] [address] [place], [place] [address]Cleuczlan (Bld) [#/Vol]261.0 E9/RZrwpwr153.0-500.0[facility] HospitalComment on above:Performed By: #### [id number] #### [facility] [address], [place] [address]NZZ (Bld) [#/Vol]4.5 E12/LNormal4.3-5.9[facility] HospitalComment on above:Performed By: #### [id number] #### [facility] [address] [place] [address] corrected for nucl RBC Auto (Bld) [#/Vol]9.5 E9/LNormal 4.0-11.0[facility] HospitalComment on above:Performed By: #### [id number] #### [facility] [address] [place] [address] 30[address]MVEMYGQPTKecxxmu By: SYSTEM SYSTEM on 89-93-5248Grztty Acid Lvl 2.0 mmol/LNormal0.5 - 2.2 mmol/LRemisol ChemLactic Acid Lvl2.5 mmol/LHigh0.5 - 2.2 mmol/LRemisol ChemAlbumin [Mass/Vol]4.4 g/dLNormal3.3 - 5.0 gm/dLRemisol ChemAlbumin/Globulin [Mass ratio]1.8 {ratio}Normal1.1 - 2.2Remisol ChemALP [Catalytic activity/Vol]57 [iU]/lGxojuk10 - 98 Int._Unit/LRemisol ChemALT No additional P-5'-P [Catalytic activity/Vol]23 [iU]/dNormal6 - 46 Int._Unit/L Remisol ChemAnion gap [Moles/Vol]16 mmol/LNormal6 - 16 mEq/LRemisol ChemAST [Catalytic activity/Vol]17 [iU]/dNormal5 - 43 Int._Unit/LRemisol ChemBilirubin [Mass/Vol]0.9 mg/dLNormal0.0 - 1.1 mg/dLRemisol ChemBilirubin.direct [Mass/Vol] 0.1 mg/dLNormal0.0 - 0.4 mg/dLRemisol ChemBilirubin.indirect [Mass or moles/Vol] 0.8 mg/dLNormal0.1 - 0.9 mg/dLRemisol ChemCalcium [Mass/Vol]9.7 mg/dLNormal8.9 - 11.1 mg/dLRemisol ChemChloride [Moles/Vol]102 mmol/OCgvgqa116 - 111 mmol/L Remisol ChemCO2 [Moles/Vol]24 mmol/TObxchv27 - 31 mmol/LRemisol ChemCreatinine [Mass/Vol]0.9 mg/dLNormal0.5 - 1.3 mg/dLRemisol UkyrcSTG21 mL/min/1.73 z9Wsujza >=59mL/min/1.73 m9Igdvrwr ChemGlobulin (S) [Mass/Vol]2.5 g/dLNormal1.4 - 4.0 gm/dLRemisol ChemGlucose [Mass/Vol]243 mg/bLXpfv81 - 199 mg/dLRemisol ChemLipase [Catalytic activity/Vol]24 U/INsauxd31 - 58 unit/LRemisol ChemPotassium [Moles/Vol]3.6 mmol/LNormal3.5 - 5.3 mmol/LRemisol ChemProtein [Mass/Vol]6.9 g/dLNormal6.0 - 7.8 gm/dLRemisol ChemSodium [Moles/Vol]138 mmol/PByadct075 - 145 mmol/LRemisol ChemUrea nitrogen [Mass/Vol]20 mg/dLNormal5 - 21 mg/dLRemisol ChemUrea nitrogen/Creatinine [Mass ratio]22 mg/kfHacv43 - 20Remisol ChemCT Abdomen/Pelvis w/o Contraston 10-00-1743DE Abdomen/Pelvis w/o ContrastExam Date/Time: 08/09/2024 09:20 EDT Reason for Exam: [...] Small hiatal hernia. Lymph Nodes: No lymphadenopathy. Mesentery/peritoneum/retroperitoneum: Right perinephric stranding. No loculated collection. Vasculature: [...] Given? No Oral contrast amount in ml's: 0NormalAdena Health System Clinical Summaryon [id number] Clinical SummaryED Clinical Summary [place] [address] ED Clinical Summary Person Information Name: CHELSEA CURRY [facility] Age: 79 Years : 1945 Sex: Female Language: Swedish PCP: JARED HEDRICK MD Marital Status: Visit Id: Visit Reason: Vomiting; Nausea; Abdominal pain; VOMITING,ABD PAIN Speciality: Acuity: 3 Enc Type: Inpatient Med Service: Medical Arrival: 08/09/2024 08:27:53 Discharge: LOS: 000 05:58 Checkin: 08/09/2024 08:27:53 Checkout: 08/09/2024 14:25:53 Dispo Type: Admitted as IP to this [facility] EVENTS: Event Name Event Status Request Date/Time [...] 14:11:46 Meds Admin Request 08/09/2024 14:11:46 [facility] [id number] PHYS DOC NOTES: MEDICAL INFORMATION: Prescriptions Given: [...] renal calculous obstruction; 3: (more content not included)...[facility] CenterED Note-Physicianon [id number] Note-PhysicianED Note-Physician Basic Information Time Seen: Salvador Peraza PA-C 08/09/2024 08:30 Chief Complaint patient presents with [...] started yesterday. Patient states that she was seenin her urology visit yesterday and was doing fine. Upon going home she started to develop worseningright sided pain with nausea and vomiting. She has been unable to keep anything down. She does notegross hematuria as well as dysuria since diagnosis of the left-sided kidney stone. She denies any fevers or bodyaches but endorses chills over the last 24 hours. Review of Systems No other aggravating or relieving factors no other associated symptoms no other prior treatments orcomplaints. Family: Reviewed and noncontributory Social: lives at [...] obstructing calculus at the right ureterovesicular junction withright sided hydroureteronephrosis and perinephric stranding interval placement [...] ED and will be maintained throughout her admission.She was given a dose of Rocephin 1 g here in the ED. I spoke with the hospitalist who accepted the patient for admission for further evaluation and management with Dr. Smith consult. Return to ED preca utions were reviewed with the patient at length. Assessment/Plan 1. Kidney stones (N20.0: Calculus of kidney) 2. Abdominal pain (R10.9: Unspecified abdominal pain) 3. Nausea & vomiting (R11.2: Nausea with vomiting, unspecified) 4. UTI (urinary tract infection) (N39.0: Urinary tract infection, site not specified) Orders: ceftriaxone + Sodium Chloride 0.9% intravenous solution 50 mL, 1,000 mg = 1 EA, IV Piggyback, Once,Stop date 08/09/24 12:21:00 EDT, STAT, Start date [...] Stop date 08/09/24 12:21 (more content not included)...[facility] CampusComment on above:Result Comment: Electronically Signed By: Salvador Peraza PA-C\.br\Date and Time Signed: 08/09/2413:31 EDT\.br\Electronically Co- Signed By: Lisa Dumont M.D.\.br\Date and Time Co-Signed: 08/09/24 15:01 EDTED Patient Education Noteon [id number] Patient Education NoteED Patient Education NoteNoMarion Hospital Patient Summaryon [id number] Patient SummaryED Patient Summary [place] [id number] Patient Discharge Instructions Person Information Name: CHELSEA CURRY Age: 79 Years Arrival Date: 08/09/2024 08:27:53 Discharge Diagnosis: 1:Pyelonephritis; 2:Hydronephrosis with renal calculous obstruction; 3:Nausea & vomiting; 4:Smoker; 5:Hypertension; 6:Hyperlipidemia; 7:Hypothyroidism; 8:Chronic GERD; 9:Chronic diarrhea; 10:On deep vein thrombosis (DVT) prophylaxis Primary Care Physician: JARED HEDRICK MD Provider Information Primary Provider: Lisa Dumont M.D. Advanced Horse Trainer:Salvador Peraza PA-C The exam and treatment you received in the Emergency Department were for an urgent problem and are not intended as complete care. It is important that you follow up with a doctor, nurse practitioner,or physician?s zoning assistant for ongoing care. If your symptoms [...] opioids can be used to help relieve mnbbbiyi-li-fzapaf pain and are often prescribed following a [...] and have fewer risks and side effects. Optionsmay include: ? Pain relievers such as acetaminophen, [...] unused prescription opioids: Find your community drug take- back program or [employer] mail-back program, or flush them down the toilet, following guidance from the Food and Drug Administration (www.fda.gov/Drugs/ResourcesForYou). ? Visit www.cdc.gov/drugoverdose to learn about the risks of opioids abuse and overdose. ? If you believe you may be struggling with addiction, tell your health rn homecare and ask for guid (more content not included)...[facility] CampusExtra Blueon [id number] Collected PlasmaYesInvalid Interpretation [facility] HospitalComment on above:Performed By: #### [id number] #### [facility] [address] [place], [place] [address]QKBZUEMXBWLdrytlf By: Yamila Ocampo on 08-09-2024 Basophils/100 WBC (Bld)0.7 %Normal0.0 - 2.0 %Remisol HemeBasophils/Leukocytes Auto (Bld) [Pure # fraction]0.1 E9/LNormal0.0 - 0.2 E9/LRemisol HemeEosinophils (Bld) [#/Vol]0.0 E9/LNormal0.0 - 0.5 E9/LRemisol HemeEosinophils/100 WBC (Bld) 0.1 %Normal0.0 - 8.0 %Remisol HemeErythrocyte distribution width (RBC) [Ratio] 13.6 %Hyczbg37.9 - 14.2 %Remisol HemeHematocrit (Bld) [Volume fraction]42.1 % Idtzpf58.0 - 46.0 %Remisol HemeHemoglobin (Bld) [Mass/Vol]14.7 g/jXMsopvm24.0 - 16.0 gm/dLRemisol HemeLymphocytes (Bld) [#/Vol]0.6 E9/LLow1.0 - 4.0 E9/LRemisol HemeLymphocytes/100 WBC (Bld)6.6 %Low14.0 - 50.0 %Remisol HemeMCH (RBC) [Entitic mass]32.7 lpKpoaas79.0 - 34.0 pgRemisol HemeMCHC (RBC) [Mass/Vol]34.9 g/dL Ircrvr62.4 - 36.0 gm/dLRemisol HemeMCV (RBC) [Entitic vol]93.9 rVQajmen26.0 - 100.0 fLRemisol HemeMonocytes (Bld) [#/Vol]0.4 E9/LNormal0.2 - 1.0 E9/LRemisol HemeMonocytes/100 WBC (Bld)3.8 %Low4.0 - 14.0 %Remisol HemeNeutrophils (Bld) [#/Vol]8.5 E9/LHigh2.0 - 7.5 E9/LRemisol HemeNeutrophils/100 WBC (Bld)88.8 %High 36.0 - 75.0 %Remisol HemePlatelet mean volume (Bld) [Entitic vol]8.1 fLNormal6.4 - 10.8 fLRemisol HemePlatelets (Bld) [#/Vol]261.0 E9/IWggwhh488.0 - 500.0 E9/L Remisol HemeRBC (Bld) [#/Vol]4.5 E12/LNormal4.3 - 5.9 E12/LRemisol HemeWBC corrected for nucl RBC Auto (Bld) [#/Vol]9.5 E9/LNormal4.0 - 11.0 E9/LRemisol HemeHep Func Panelon 85-96-0633Cwbosiq [Mass/Vol]4.4 g/dLNormal3.3-5.0[facility] HospitalComment on above:Performed By: #### [id number] #### [facility] [address], [place] [address]Mvltxkb/Globulin (S) [Mass conc ratio]1.4Osbuic6.1-2.2FCleveland Clinic Hillcrest HospitalComment on above:Performed By: #### [id number] #### [facility] [address], [place] [address]PRR [Catalytic activity/Vol]57 Int._Unit/GPtwsxa54-37IgtdoxPromedica Defiance Regional HospitalComment on above:Performed By: #### [id number] #### [facility] [address], [place] [address]WWJ No additional P-5'-P [Catalytic activity/Vol]23 Int._Unit/L Normal6-46[facility] HospitalComment on above:Performed By: #### [id number] #### [facility] [address], [place] [address]XLS [Catalytic activity/Vol]17 Int._Unit/LNormal5-43[facility] HospitalComment on above:Performed By: #### [id number] #### [facility] [address], [place] [address]Cyvvdzjht [Mass/Vol]0.9 mg/dLNormal0.0-1.1FCleveland Clinic Hillcrest HospitalComment on above:Performed By: #### [id number] #### [facility] [address], [place] [address]Ryrroqpxn.direct [Mass/Vol]0.1 mg/dLNormal0.0-0.4FCleveland Clinic Hillcrest HospitalComment on above:Performed By: #### [id number] #### [facility] [address], [place] [address]Efkwbpvek.indirect [Mass or moles/Vol]0.8 mg/dLNormal0.1-0.9 [facility] HospitalComment on above:Performed By: #### [id number] #### [facility] [address] [place] [address]Jzvvzyno (S) [Mass/Vol]2.5 g/dLNormal1.4-4.0[facility] HospitalComment on above:Performed By: #### [id number] #### [facility] [address], [place] [address]Lpekkce [Mass/Vol]6.9 g/dLNormal6.0-7.8[facility] HospitalComment on above:Performed By: #### [id number] #### [facility] [address], [place] [address]Ilcyfultbh - Microbiology and Antimicrobial susceptibility Ordered By: Eli Abdalla on 18-70-7758Qgnfptev identified Cx Nom (U)2,000 cfu/ml Mixed skin contaminantsAdena Regional Medical CenterLactic Acidon 08-09-2024 Lactic Acid Lvl2.0 mmol/LNormal0.5-2.2FCleveland Clinic Hillcrest HospitalComment on above:Order Comment: Order added by EKS Rule. (FT_LACTIC_ACID_REFLEX) Adds reflex Lactic Acid 4 hours after initial if result is greater than or equal to 2.0.Performed By: #### [id number] #### [facility] [address], [place] [address]Dyemfx Acid Lvl2.5 mmol/LHigh0.5-2.2[facility] Comment on above:Performed By: #### [id number] #### [facility] [address], [place] [address]Tgwyxd Levelon 61-04-8104Pgxxxj [Catalytic activity/Vol]24 U/L Dfbklx26-62SgeyqmPromedica Defiance Regional HospitalComment on above:Performed By: #### [id number] #### [facility] [address], [place] [address]Tx Panel InformationOrdered By: ANGPROCESSSERVER MICROBIOLOGY on 20-44-0217Whlfj Culture CharcoalNo growth at 1 day. Final to follow at 7 days.[facility] Medical CenterBlood Culture CharcoalNo growth at 1 day. Final to follow at 7 days.[facility] Medical CenterUA with Cult Rflxon 82-54-2159Hdtrpptgh Ql (U)NegativeNormalNegChildren's Hospital of Columbus Comment on above:Performed By: #### [id number] #### [facility] [address], [place] [address]Ppamcfp (U)Ex.TurbidAbnormalClearFisher [facility] Comment on above:Performed By: #### [id number] #### [facility] [address], [place] [address]Wjznh (U)Dark-BrownAbnormalYellowPromedica Defiance Regional Hospital Comment on above:Result Comment: Microscopic readings are only performed on those samples that meet specific criteria set forth by [facility].Performed By: #### [id number] #### [facility] [address], [place] [address]Ktzemsmyah cells.squamous Auto (Urine sed) [#/Area]5-8Invalid Interpretation CodePromedica Defiance Regional HospitalComment on above:Performed By: #### [id number] #### [facility] [address], [place] [address]Arpvaar Ql (U)4+ mg/dLAbnormalNegChildren's Hospital of ColumbusComment on above:Performed By: #### [id number] #### [facility] [address], [place] [address]Koezwbrdsm Auto test strip (U) [Mass/Vol]3+ mg/dLAbnormal Providence HospitalComment on above:Performed By: #### [id number] #### [facility] [address], [place] [address]Esyzrmq Auto test strip Ql (U)2+ mg/dLAbnormalNegChildren's Hospital of ColumbusComment on above:Performed By: #### [id number] #### [facility] [address], [place] [address]Adoigaudb esterase Auto test strip Ql (U)250 Naomi/uLAbnormal NegativePromedica Defiance Regional HospitalComment on above:Performed By: #### [id number] #### [facility] [address] [place] [address]Ozdqm Auto Ql (U)3+ CD:[id number] Titus Medical CenterComment on above:Performed By: #### [id number] #### [facility] [address] [place] [address]Ftrlhfl Auto test strip Ql (U)NegativeNormalNegativePromedica Defiance Regional HospitalComment on above:Performed By: #### [id number] #### [facility] [address] [place] [address]vJ (U)6.0 [pH]Invalid Interpretation Code5.0-9.0[facility] HospitalComment on above:Performed By: #### [id number] #### [facility] [address] [place] [address]Fxxalcg Ql (U)2+ mg/dLAbnormalNegativePromedica Defiance Regional HospitalComment on above:Performed By: #### [id number] #### [facility] [address] [place] [address]EPC Ql (U)>92Phqchboq7-6QhglwnCleveland Clinic Hillcrest HospitalComment on above:Performed By: #### [id number] #### [facility] [address] [place] [address]Kcraqgcf gravity (U) [Rel density]1.027Invalid Interpretation Code1.005-1.030[facility] HospitalComment on above:Performed By: #### [id number] #### [facility] [address] [place] [address]Pvquubghtgiz (U) [Mass/Vol]NegativeNormalNegativePromedica Defiance Regional HospitalComment on above:Performed By: #### [id number] #### [facility] [address] [place] [address]OOY Auto (Urine sed) [#/Area]78-87Anwdraxp4-2Xmisvq [facility] MarylandComment on above:Performed By: #### [id number] #### [facility] [address], [place] [address]Njzs of Urine collection methodClean CatchNormalFisher Upmc Western MarylandComment on above:Performed By: #### [id number] #### [facility] [address], [place] [address]ECRGMMGSQIXotiwhi By: SYSTEM SYSTEM on 34-66-8886Wolsjshab Ql (U)NegativeNormalNegativemg/dLFTMC UA Auto SSClarity (U)Ex.Turbid *ABN* (08/09/24 9:41 AM)Invalid Interpretation CodeClearFTMC UA Auto SSColor (U)Dark- Brown 1 *ABN* (08/09/24 9:41 AM)Invalid Interpretation CodeYellowFTMC UA Auto SSComment on above:Interpretive Data: Microscopic readings are only performed on those samples that meet specific criteria set forth by [facility].Epithelial cells.squamous Auto (Urine sed) [#/Area]5-8 graded/HPF Invalid Interpretation CodeFTMC UA Auto SSGlucose Ql (U)4+ mg/dLInvalid Interpretation CodeNegativemg/dLFTMC UA Auto SSHemoglobin Auto test strip (U) [Mass/Vol]3+ mg/dLInvalid Interpretation CodeNegativemg/dLFTMC UA Auto SSKetones Auto test strip Ql (U)2+ mg/dLInvalid Interpretation CodeNegativemg/dLFTMC UA Auto SSLeukocyte esterase Auto test strip Ql (U)250 Naomi/uL Naomi/uLInvalid Interpretation CodeNegativeLeu/uLFTMC UA Auto SSMucus Auto Ql (U)3+ graded/LPF Invalid Interpretation CodeNegativegraded/LPFFTMC UA Auto SSNitrite Auto test strip Ql (U)NegativeNormalNegativemg/dLFTMC UA Auto SSpH (U)6.0 *NA* (08/09/24 9:41 AM)Invalid Interpretation Code5.0 - 9.0FTMC UA Auto SSProtein Ql (U)2+ mg/dLInvalid Interpretation CodeNegativemg/dLFTMC UA Auto SSRBC Ql (U)>75 graded/HPFInvalid Interpretation Code0-3graded/[facility] UA Auto SSSpecific gravity (U) [Rel density]1.027 *NA* (08/09/24 9:41 AM)Invalid Interpretation Code1.005 - 1.030[facility] UA Auto SS Urobilinogen (U) [Mass/Vol]NegativeNormalNegativemg/dLINTEGRIS [facility]NADIAN [facility] Auto SSWBC Auto (Urine sed) [#/Area]16-25 graded/HPFInvalid Interpretation Code0-5graded/[facility] UA Auto SSURINALYSISOrdered By: Salvador Peraza on 47-38-0059PA Spec DescClean Catch (08/09/24 9:41 AM)NormalINTEGRIS [facility] Auto SSeGFRon 13-79-0119oJOM75 mL/min/1.73 m2 Normal>=59Fisher [facility]c Western MarylandComment on above:Performed By: #### [id number] #### [facility] [address], [place] [address]Pgzdretoxp Visit Summaryon 74-97-5985Mhgegkqicb Visit Summary Ambulatory Visit Summary CHELSEA CURRY :1945 Visit Date:08/08/2024 Ambulatory Visit Instructions Your Diagnosis Ureteral stone with hydronephrosis Gross hematuria Kidney stones Mixed stress and urge incontinence Other urethral stricture, female Proteinuria Your Care Team Attending Physician - ANA [...] simvastatin Procedures Performed Cystoscopy (07/30/2024), Colonoscopy (01/30/2024), Esophagogastroduodenoscopy (01/30/2024), Colonoscopy (01/13/2017), Cystoscopy (04/27/2016), Cystoscopic removal of ureteric stent (04/20/2012), Cystoscopic insertion of ureteric stent (04/06/2012), ESWL - Extracorporeal shockwave lithotripsy for renal calculus (04/01/2012), Cystoscopy and retrograde pyelography (09/29/2010), ESWL - Extracorporealshockwave lithotripsy for renal calculus (12/31/2009), ESWL - [...] shockwave lithotripsy for renal calculus (03/2005), Cystoscopic i nsertion of ureteric stent (08/2002), ESWL - Extracorporeal [...] ÁNGELA JUAREZ PA-C Where: [facility] [address] [place] [address]- You Need to Schedule the Following Appointments Follow Up with ANA SILVER, DANIEL YOUNG When: Where: Medications What How Much When Why Instructions Unchanged trospium (trospium 20 mg oral tablet) 1 Tablets By Mouth Every day Duration: 30 Days takein morning on an empty stomach Unchanged bifidobacterium infantis (Align 4 mg oral capsule) 1 Capsules By Mouth Every day Abdominal cramping S/P cholecystectomy Stool incontinence Lipoma of stomach Contact prescribing physician ifquestions or concerns Unchanged cholecalciferol (Vitamin D3) 50 [...] 1 Tablets By Mouth Every day Mejia's esophagusDuration: 90 Days Contact prescribing physician if questions or concerns Unchanged rivaroxaban (Xarelto 20 mg oral tablet) 1 Tablets By Mouth Once a day (in the evening) Contact prescribing physician if questions or concerns Unchanged semaglutide (Rybelsus 14 mg oral tablet) By Mouth Every day Contact prescribing physicianif questions or concerns Unchanged simvastatin See instructions 20 mg Oral Monday, Monday, Monday Contact prescribing physic (more content not included)...[facility] CampusUrology Office/Clinic Noteon 79-04-6361Ycqwohm Office/Clinic Note Urology Office/Clinic Note Chief Complaint f/u cysto & stent placement HPI Staff 79 year old female who is a Dr. Eldridge pt presents for follow up to Cystoscopy, left ureteral stentplacement done 07/30/24 after urology consult on 07/30 [...] with voice recognition artificial intelligence software, specifically Notifo, BetterPet and or Coinex-IO. Substitutions may have occurred due to the inherent limitations of voice recognition and artificial intelligence software. 1. Ureteral stone with hydronephrosis (N13.2: Hydronephrosis with renal and ureteral calculous obstruction) Pt presented to [facility] ER 07/30/24 with L sided flank pain. Neg urine culture. Labs Cr 1.2, eGFR 45 CT AP wo con 07/30/24 - Approximately 7 x 4 x 3 mm proximal left ureteral calculus approximately 19cm superior to the left UVJ with mild [...] - small stable b (more content not included)...[facility] CampusComment on above:Result Comment: Electronically Signed By: HANNAH CHACON MD\.br\Date and Time Signed: 08/08/24 11:34 EDT\.br\Electronically Co-Signed By: Sandra Mcdonald\.br\Date and Time Co- Signed: 08/08/24 11:25 EDTBasic metabolic 1998 panelon 04-08-6334Trnimdn [Mass/Vol]9.7 mg/dL8.7 - 10.3 mg/dLNOMS HealthcareChloride [Moles/Vol]101 mmol/L 96 - 106 mmol/LNOMS HealthcareCO2 [Moles/Vol]26 mmol/L20 - 29 mmol/LNOMS HealthcareCreatinine [Mass/Vol]0.83 mg/dL0.57 - 1.00 mg/dLNOGA Healthcare GFR/1.73 sq M.predicted among non-blacks MDRD (S/P/Bld) [Vol rate/Area]71 mL/min/{1.73_m2}59 - PINF mL/min/1.73NOMS HealthcareGlucose [Mass/Vol]134 mg/dL High70 - 99 mg/dLNOGA HealthcarePotassium [Moles/Vol]3.4 mmol/LLow3.5 - 5.2 mmol/LNOMS HealthcareSodium [Moles/Vol]141 mmol/L134 - 144 mmol/LNOMS Healthcare Urea nitrogen [Mass/Vol]12 mg/dL8 - 27 mg/dLNOGA HealthcareUrea nitrogen/Creatinine [Mass ratio]14 mg/mg12 - 28NOSSM De[facility] Health CenterC Urineon 46-29-2661Yqivvmup identified Cx Nom (U)Microbiology PROCEDURE: Urine Culture [R1] SOURCE: U CleanCatch BODY SITE: COLLECTED DATE/TIME: 07/30/2024 08:44 EDT RECEIVED DATE/TIME: 07/30/2024 10:55 EDT START DATE/TIME: 07/30/2024 10:56 EDT FREE TEXT SOURCE: Kevin Mann PA-C, PA-C, Kevin FINAL REPORTS Final Report [] Verified Date/Time: 08/01/2024 10:45 EDT 1,000 cfu/ml Mixed skin contaminants Performing Locations R1: This test was performed at: [facility], [address] [place] [address], [phone]- , , XkgogdEsnzsaMercy Health St. Elizabeth Boardman HospitalComment on above:Performed By: #### [id number] #### [facility] [address] [place] [address]Gjfrxmjdiz a1c with eagon 25-82-3454Dcqfjpa glucose Estimated from glycated hemoglobin (Bld) [Mass/Vol]163 mg/dLThe Rehabilitation InstituteHbA1c (Bld) [Mass fraction]7.3 %High4.8 - 5.6 %The Rehabilitation InstituteComment on above:Prediabetes: 5.7 - 6.4 Diabetes: >6.4 Glycemic control for adults with diabetes: <7.0 No Panel Informationon 11-96-0577Tnmhfatpwieqco and review of laboratory results AbnormalThe Rehabilitation InstitutePerformed at: [address] [place], [place] [id number] Education Officer: Derek Adair PhD, Phone: [phone] Healthcare Specimen Status Reporton 73-74-0770Fcoqqmoxwcc Disk diffusion (KB) [Susc]Comment [facility] HealthcareComment on above:Ambig Abbrev BMP8 Default Ambig Abbrev BMP8 Default A hand-written panel/profile was received from your office. In accordance with the [facility] Ambiguous Test Code Policy dated April 2003, we have completed your order by using the closest currently or formerly recognized AMA panel. We have assigned Basic Metabolic Panel (8), Test Code #070370 to this request. If this is not the testing you wished to receive on this specimen, please contact the [facility] Client Inquiry/Technical Services Department to clarify the test order. We appreciate your business. TSHon 29-53-8107HLK Qn0.691 m[IU]/LNOMS HealthcareVitamin B12on 08-01-2024 Cobalamin (Vitamin B12) [Mass/Vol]885 pg/mL232 - 1245 pg/mLNOMS HealthcareMain OR Intraoperative Recordon 51-95-0205Pwyg OR Intraoperative RecordMain OR Intraoperative Record IntraOp Document Type FT Summary Primary Physician: HANNAH CHACON MD Finalized Date/Time: 07/31/24 14:19:27 Pt. Name: CHELSEA CURRY Jamey Rea/Sex: 1945 Female Med Rec #: [id number] Physician: Bacilio Mayen DO Financial #: [id number] Pt. Type: O Room/Bed: [place] [address] Admit/Disch: 07/30/24 08:10:57 - 07/30/24 14:55:00 Institution: [...] Cruz Role Performed ESTHER Surgeon - Primary Ribbon Inker - Primary Time In 07/30/24 12:50:00 07/30/24 [...] Daniel P Role Performed Scrub - Primary Fire Inspector Time In 07/30/24 12:50:00 07/30/24 13:05:00 Time [...] CRNA, Time Out Complete 07/30/24 13:04:00 Participants ANA SILVER, Nancy YOUNG Terry T, Julio Moore Roll RT, Daniel P Outcomes Met? Yes [...] LEFT STENT Primary Procedure Yes Primary Surgeon ANA SILVER, HANNAH Start 07/30/24 13:04:00 Stop 07/30/24 13:11:00 Anesthesia Type [...] and tissue Entry 1 Skin Integrity Intact, [place], Warm, & Skin Abnormality No Dry Outcomes [...] patient for signs an (more content not included)...NormalPromedica Defiance Regional HospitalBMPon 50-22-2752Lstjm gap [Moles/Vol]13 mmol/LNormal6-16[facility] Comment on above:Performed By: #### [id number] #### [facility] [address], [place] [address]Nujyesf [Mass/Vol]9.9 mg/dLNormal8.9-11.1Fisher [facility] Western MarylandComment on above:Performed By: #### [id number] #### [facility] [address], [place] [address]Vrbajuvy [Moles/Vol]102 mmol/WAbpmfj341-661ToajefPromedica Defiance Regional HospitalComment on above:Performed By: #### [id number] #### [facility] [address], [place] [address]UL2 [Moles/Vol]28 mmol/JSyzpbm25-91QrolhrPromedica Defiance Regional Hospital Comment on above:Performed By: #### [id number] #### [facility] [address], [place] [address]Tygbnncspv [Mass/Vol]1.2 mg/dLNormal0.5-1.3FC[facility] Hill[facility]st HospitalComment on above:Performed By: #### [id number] #### [facility] [address], [place] [address]Qetbohi [Mass/Vol]202 mg/bCGrtn94-186VnokzlPromedica Defiance Regional HospitalComment on above:Performed By: #### [id number] #### [facility] [address], [place] [address]Xymdtbasz [Moles/Vol]3.5 mmol/LNormal3.5-5.3FC[facility] Hillcrest HospitalComment on above:Performed By: #### [id number] #### [facility] [address], [place] [address]Muznvb [Moles/Vol]139 mmol/DUiixbz309-951DepfpkPromedica Defiance Regional HospitalComment on above:Performed By: #### [id number] #### [facility] [address], [place] [address]Owha nitrogen [Mass/Vol]17 mg/dLNormal5-21[facility] HospitalComment on above:Performed By: #### [id number] #### [facility] [address], [place] [address]Bigx nitrogen/Creatinine [Mass ratio]14 No JubevXbxpsc26-33 [facility] HospitalComment on above:Performed By: #### [id number] #### [facility] [address], [place] [address]TAO w/ Auto Diffon 80-96-6805Eccacackv/100 WBC (Bld)0.7 %Normal 0.0-2.0[facility] HospitalComment on above:Performed By: #### [id number] ####[facility] [address] [place] [address] Basophils/Leukocytes Auto (Bld) [Pure # fraction]0.1 E9/LNormal0.0-0.2FC[facility] Hill[facility]st HospitalComment on above:Performed By: #### [id number] ####[address] [address]Hgxhktorild (Bld) [#/Vol]0.0 E9/LNormal0.0-0.5FCleveland Clinic Hillcrest HospitalComment on above: Performed By: #### [id number] ####[address] [address]Pgfzjkwjrrk/100 WBC (Bld)0.6 %Normal0.0-8.0[facility] HospitalComment on above:Performed By: #### [id number] ####[address] [address]Rejmicgoicd distribution width (RBC) [Ratio]13.5 %Kyzrug39.9-14.2[facility] Comment on above:Performed By: #### [id number] ####[address] [address]Vunsyepnmt (Bld) [Volume fraction] 39.7 %Sejksp10.0-46.0[facility] HospitalComment on above:Performed By: #### [id number] ####[address] [address]Rgydppxeir (Bld) [Mass/Vol]14.4 g/vAAloptf16.0-16.0[facility] HospitalComment on above:Performed By: #### [id number] ####[address] [address]Awvrnthfhun (Bld) [#/Vol]0.8 E9/LLow1.0-4.0[facility] HospitalComment on above:Performed By: #### [id number] ####[address] [address]Frqekqiohuq/100 WBC (Bld)11.3 %Low14.0-50.0[facility] Comment on above:Performed By: #### [id number] ####[address] [address]SFA (RBC) [Entitic mass]33.5 pgNormal 27.0-34.0[facility] HospitalComment on above:Performed By: #### [id number] ####[address] [address]OFBQ (RBC) [Mass/Vol]36.3 g/vKXimn36.4-36.0[facility] HospitalComment on above:Performed By: #### [id number] ####[address] [address]NBP (RBC) [Entitic vol]92.4 iENvnhbg48.0-100.0 [facility] HospitalComment on above:Performed By: #### [id number] ####[address] [address] Monocytes (Bld) [#/Vol]0.5 E9/LNormal0.2-1.0[facility] HospitalComment on above:Performed By: #### [id number] ####[address] [address]Absdaxgsdiq (Bld) [#/Vol]5.6 E9/L Normal2.0-7.5FCleveland Clinic Hillcrest HospitalComment on above:Performed By: #### [id number] ####[address] [address]Ybdcqxpiiyk/100 WBC (Bld)80.8 %High36.0-75.0[facility] Comment on above:Performed By: #### [id number] ####[address] [address]Xiiczwtf378.0 E9/OQaxgmg555.0-500.0 [facility] HospitalComment on above:Performed By: #### [id number] ####[address] [place] [address] Platelet mean volume (Bld) [Entitic vol]7.6 fLNormal6.4-10.8[facility] HospitalComment on above:Performed By: #### [id number] ####[facility] [address] [place], [place] [address]CPO (Bld) [#/Vol]4.3 E12/L Normal4.3-5.9[facility] HospitalComment on above:Performed By: #### [id number] ####[facility] [address] [place] [address]BCC corrected for nucl RBC Auto (Bld) [#/Vol]6.9 E9/LNormal4.0-11.0[facility] HospitalComment on above:Performed By: #### [id number] ####[facility] [address] [place] [address]HAIQZLESOTwnituh By: SYSTEM SYSTEM on 93-62-3768Pwugj gap [Moles/Vol]13 mmol/LNormal6 - 16 mEq/L Remisol ChemCalcium [Mass/Vol]9.9 mg/dLNormal8.9 - 11.1 mg/dLRemisol Chem Chloride [Moles/Vol]102 mmol/IErceoe172 - 111 mmol/LRemisol ChemCO2 [Moles/Vol] 28 mmol/IOfzgyt43 - 31 mmol/LRemisol ChemCreatinine [Mass/Vol]1.2 mg/dLNormal0.5 - 1.3 mg/dLRemisol GmyexNEC93 mL/min/1.73 m2Low>=59mL/min/1.73 v0Ggofhqu Chem Glucose [Mass/Vol]202 mg/zZJoby34 - 199 mg/dLRemisol ChemPotassium [Moles/Vol] 3.5 mmol/LNormal3.5 - 5.3 mmol/LRemisol ChemSodium [Moles/Vol]139 mmol/LNormal 135 - 145 mmol/LRemisol ChemUrea nitrogen [Mass/Vol]17 mg/dLNormal5 - 21 mg/dL Remisol ChemUrea nitrogen/Creatinine [Mass ratio]14 mg/qbMiubit72 - 20Remisol ChemCT Abdomen/Pelvis w/o Contraston 97-77-4288LV Abdomen/Pelvis w/o Contrast Exam Date/Time: 07/30/2024 09:17 [...] No other aneurysm. Minimal atherosclerotic plaquing elsewhere. Mesentery/peritoneum/retroperitoneum: No ascites, organized fluid collection, inflammatory changes, [...] Signature): 07/30/2024 9:46 am Signed by: Odell Looeny MD Transcribed by: WERNER Technologist: ALVERTO Technical Comments Rectal Contrast Given? No Oral contrast amount in ml's: 0NormalFisher [facility]c Western MarylandDischarge Instructionson [id number] InstructionsDischarge Instructions CHELSEA CURRY :1945 Visit Date:07/30/2024 Inpatient Discharge [...] mg oral tablet) Procedure History Colonoscopy (01/30/2024), Esophagogastroduodenoscopy (01/30/2024), Colonoscopy (01/13/2017), Cystoscopy [...] of ureteric stent (06/2009), Rotator cuff repair (02/2008 ), Cystoscopic laser lithotripsy of ureteric calculus (11/2006), [...] sinus procedure, Operative procedure on hand, Repair ofmeniscus, T and A (tonsillectomy and adenoidectomy) postoperative education. What to do next Instructions From Your Doctor Event Name Event Result Discharge Instructions Freetext Follow-up in 1 to 2 weeks for ureteroscopy, laser lithotripsyIt is expected with the stent in placethat you would have some discomfort with voiding, urinary urgency or frequencyAlternate Tylenol Motrin for painHydrate vigorously with a least 2 L/da Discharge Activity Ambulate as tolerated, Resume normal activities in 24 hours Discharge Restrictions No restrictions, No driving for 24 hrs, Do not make important decisions for 24 hours Discharge Instructions Discharge Instructions Previously Scheduled Follow-Up Appointments Monday 2:40 PM EST With: DEBBIE HERNANDEZ, ÁNGELA Barrios Where: [facility] [address] [place] [address] [place] [address]- New Follow Up Appointments after Discharge Follow Up with HANNAH CHACON When: Comments: Call for followup appointment Where: [address] [place] [phone] Business (1) Medications What How Much When [...] Unchanged multivitamin with minera (more content not included)...[facility] CampusComment on above:Result Comment: Electronically Signed By: Nael HOLLAND, Bala Blunt\.br\Date and Time Signed: 07/30/24 13:56 EDTED Note-Physicianon [id number] Note-PhysicianED Note-Physician Basic Information Time Seen: Kevin Mann [...] Patient states she normally requires intervention for stones.Case is discussed with urology. Ultimately patient will be admitted to the hospitalist service, maintain n.p.o. status, with expectation of likely urethral stenting. Assessment/Plan 1. Ureterolithiasis (N20.1: Calculus of ureter) Orders: ceftriaxone + Sodium Chloride 0.9% intravenous solution 50 mL, 1,000 mg = 1 EA, IV Piggyback, Once,Stop date 07/30/24 10:17:00 EDT, STAT, Start date [...] made to ensure accuracy, however, inadvertently computerized photographic colorist mistakes may be present. Appropriate healthcare PPE was used in evaluating this patient. Problem List/Past Medical History Ongoing Abdominal cramping Abdominal tenderness Acid reflux Anticoagulated Mejia's esophagus Chronic cystitis Chronic diarrhea Constipation by outlet dysfunction Diabetes Dysphagia Fecal incontinence Glucosuria Gross hematuria History of colon polyps Hyperlipidemia Hypertension Hypothyroidism Kidney stones Lipoma o (more content not included)...[facility] CampusComment on above:Result Comment: Electronically Signed By: Kevin Mann PA-C\.br\Date and Time Signed: 07/30/2410:19 EDT\.br\Electronically Co-Signed By: Lisa Dumont M.D.\.br\Date and Time Co-Signed: 07/30/24 19:09 EDTExtra Blueon 60-58-6831Bjyp Collected PlasmaYesInvalid Interpretation [facility] HospitalComment on above:Performed By: #### [id number] #### [facility] [address] [place] [address] [id number] By: SYSTEM SYSTEM on 02-95-0798Mcjmdwcwy/100 WBC (Bld)0.7 %Normal0.0 - 2.0 %Remisol HemeBasophils/Leukocytes Auto (Bld) [Pure # fraction]0.1 E9/LNormal0.0 - 0.2 E9/LRemisol HemeEosinophils (Bld) [#/Vol]0.0 E9/LNormal0.0 - 0.5 E9/LRemisol HemeEosinophils/100 WBC (Bld)0.6 %Normal0.0 - 8.0 %Remisol HemeErythrocyte distribution width (RBC) [Ratio]13.5 %Tfqvzl34.9 - 14.2 %Remisol HemeHematocrit (Bld) [Volume fraction]39.7 %Exoflb07.0 - 46.0 % Remisol HemeHemoglobin (Bld) [Mass/Vol]14.4 g/jCPynlus27.0 - 16.0 gm/dLRemisol HemeLymphocytes (Bld) [#/Vol]0.8 E9/LLow1.0 - 4.0 E9/LRemisol Heme Lymphocytes/100 WBC (Bld)11.3 %Low14.0 - 50.0 %Remisol HemeMCH (RBC) [Entitic mass]33.5 hwWunhle98.0 - 34.0 pgRemisol HemeMCHC (RBC) [Mass/Vol]36.3 g/dLHigh 31.4 - 36.0 gm/dLRemisol HemeMCV (RBC) [Entitic vol]92.4 bSGmzlea07.0 - 100.0 fL Remisol HemeMonocytes (Bld) [#/Vol]0.5 E9/LNormal0.2 - 1.0 E9/LRemisol Heme Monocytes/100 WBC (Bld)6.6 %Normal4.0 - 14.0 %Remisol HemeNeutrophils (Bld) [#/Vol]5.6 E9/LNormal2.0 - 7.5 E9/LRemisol HemeNeutrophils/100 WBC (Bld)80.8 % High36.0 - 75.0 %Remisol VoomQpauunhj442.0 E9/SIcfozu219.0 - 500.0 E9/LRemisol HemePlatelet mean volume (Bld) [Entitic vol]7.6 fLNormal6.4 - 10.8 fLRemisol HemeRBC (Bld) [#/Vol]4.3 E12/LNormal4.3 - 5.9 E12/LRemisol HemeWBC corrected for nucl RBC Auto (Bld) [#/Vol]6.9 E9/LNormal4.0 - 11.0 E9/LRemisol HemeInpatient Patient Summaryon [id number] Patient SummaryInpatient Patient Summary [place] [id number] [facility] Clinical Discharge Instructions PERSON INFORMATION Name: CHELSEA CURRY PHYSICIANS Admitting Physician: Bacilio Mayen DO Attending Physician: Bacilio Mayen DO PCP: JARED HEDRICK MD Discharge Diagnosis: 1:Hydronephrosis with obstructing calculus; 2:Acute UTI; 3:Diabetes; 4:Hypertension; 5:Hypothyroidism; 6:Smoker; 7:Fecal incontinence; 8:History of pulmonary embolism Comment: PATIENT EDUCATION INFORMATION Instructions: Kidney Stones, Cglp-pc-Mkoh Medication Leaflets: Follow up: Type Location Start Finish State URO Office Visit [facility] Therese 09/10/2024 2:40 PM 09/10/2024 3:00 PM Confirmed [...] morning on an empty stomach. Refills: 11. Comment:[facility] CampusMain OR PACU I Recordon [id number] OR PACU I RecordMain OR PACU I Record PACU Phase I Document Type FT Summary Primary Physician: HANNAH CHACON MD Finalized Date/Time: 07/30/24 14:05:29 Pt. Name: CHELSEA CURRY D.O.B./Sex: 1945 Female Med Rec #: [id number] Physician: Bacilio Mayen DO Financial #: [id number] Pt. Type: I Room/[facility] Admit/Disch: 07/30/24 08:10:57 - Institution: Case [...] I Outcomes Met? Yes Last Modified By: Wojciech HOLLAND, Yamila 07/30/24 14:05:19 Post-Care Text: The patient demonstrates knowledge of the expected response to the operative or invasive procedure The patient's care is consistent with the individualized perioperative plan of care The patient's rightto privacy is maintained The patient's value system, [...] with or improved from baseline levels established preoperativelyThe patient's cardiovascular status is consistent with or improved from baseline levels established preoperatively The patient's cardiovascular status is consistent with or improved from baseline levels established preoperatively The patient demonstrates and/or reports adequate pain control throughout the perioperative period The patient received appropriate medication(s), safely administered during the perioperativeperiod Acuity Level PACU I FT Entry 1 Start Time 07/30/24 13:23:00 Stop Time 07/30/24 13:53:00 Acuity Level Acuity Level I Last Modified By: Yamila Jeffrey RN 07/30/24 14:05:28 Finalized By: Yamila Jeffrey RN Document Signatures Signed By: Yamila Jeffrey RN 07/30/24 14:05NokimberlyPromedica Defiance Regional HospitalMain OR PACU II Recordon [id number] OR PACU II RecordMain OR PACU II Record PACU Phase II Document Type FT Summary Primary Physician: HANNAH CHACON MD Finalized Date/Time: 07/30/24 16:28:14 Pt. Name: CHELSEA CURRY Jamey Keenan/Sex: 1945 Female Med Rec #: [id number] Physician: Bacilio Mayen DO Financial #: [id number] Pt. Type: I Room/Bed: [place] [address] Admit/Disch: 07/30/24 08:10:57 - Institution: Case Times [...] and monitors body temperature Evaluates postoperative respiratory statusEvaluates postoperative cardiac status Evaluates postoperative neurological status [...] individualized perioperative plan of care The patient's rightto privacy is maintained The patient's value system, [...] with or improved from baseline levels established preoperativelyThe patient's cardiovascular status is consistent with or improved from baseline levels established preoperatively The patient's neurological status is consistent with or improved from baseline levels established preoperatively The patient demonstrates and/or reports adequate pain control throughout the perioperative period The patient received appropriate medication(s), safely administered during the perioperativeperiod Finalized By: Sirena Mullins RN Document Signatures Signed By: Sirena Mullins RN 07/30/24 16:28NoMercy Health [address]. Elizabeth Board[facility] HospitalMain OR Preoperative Recordon [id number] OR Preoperative RecordMain OR Preoperative Record PreOp Document Type FT Summary Primary Physician: HANNAH CHACON MD Finalized Date/Time: 07/30/24 13:42:41 Pt. Name: CHELSEA CURRY Jamey Soriano./Sex: 1945 Female Med Rec #: [id number] Physician: Bacilio Mayen DO Financial #: [id number] Pt. Type: Room/Bed: [place] [address] Admit/Disch: 07/30/24 08:10:57 - Institution: Case Times [...] Document Signatures Signed By: Miles Cruz 07/30/24 13:42NoMercy Health St. Elizabeth Boardman HospitalOperative Report on [id number] ReportOperative Report Patient: CHELSEA CURRY MRN: [id number] Age: 79 years Sex: Female : 1945 Associated Diagnoses: None Author: HANNAH CHACON MD Physical Examination Gastrointestinal: Soft. Genitourinary: L. CVA Tenderness. Procedure SURGEON: Hannah Chacon MD PREOPERATIVE DIAGNOSIS: Left sided proximal ureteral stone POSTOPERATIVE DIAGNOSIS: Same PROCEDURE: Cystoscopy, left ureteral stent placement- CPT 65249 FINDINGS: Cystoscopy demonstrated cystitis cystica present throughout the floor the bladder, successful placement of 6 x 22-32CM variable stent ANESTHESIA: General INTRAVENOUS FLUIDS: See anesthesia record ESTIMATED BLOOD LOSS: None TUBES AND DRAINS: 6 x 22-32 cm variable stent SPECIMENS: None COMPLICATIONS: None INDICATIONS FOR PROCEDURE: Patient is a 79-year-old female with prior history of nephrolithiasis who presented with left-sidedflank pain. CT demonstrated 7 mm proximal ureteral stone which presents today for stent placement. H&P was reviewed, informed consent was obtained, patient understood risk, benefits, alternativesof the procedure and wished to proceed.. OPERATIVE DETAIL: The patient was brought to the operative suite and placed on continuous pulse oximetry and cardiac monitoring by anesthesia. Rocephin had already been administered in the inpatient. Patient was then placed in the dorsolithotomy position and timeout was performed confirming patient, procedure, side,all in the room agreed. A well-lubricated 22 Afghan cystoscopic sheath with a 30 degree lens was inserted into urethral meatus and advanced into the bladder. 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 Prior to this, we did a cystoscopy and findings as demonstrated above. We then c annulated the left ureteral orifice with a Glidewire [...] F/U in 1-2 weeks for ureteroscopy, laser lithotripsyNoMercy Health St. Elizabeth Boardman HospitalComment on above:Result Comment: Electronically Signed By: HANNAH CHACON MD\.br\Date and Time Signed: 07/30/24 13:27 EDT Outpatient Surgery Discharge Instructionon [id number] Surgery Discharge InstructionOutpatient Surgery Discharge Instruction [place] [id number] Patient Discharge Instructions PERSON INFORMATION Name: CHELSEA [...] 24 hrs, Do not make important decisions for24 hours Additional Instructions: Follow-up in 1 to [...] NEAREST EMERGENCY ROOM OR CALL 911 PATRICIO Ch LINDA L, have received the attached patient education materials/instructions and have verbalized understanding: May we do a follow up call? Yes No I was present when discharge instructions were given Patient Signature Date Clinican/Nurse Signature Date Follow up: Type Location Start Finish State URO Office Visit [facility] [place] Therese 09/10/2024 2:40 PM 09/10/2024 3:00 PM Confirmed Pharmacy Information: You may receive a survey from Eduin Diez asking you to rate your care experience. Your feedback is important and will help us understand what we do well and how we can improve the quality of care we provide to you, your loved ones and our community. It?s an honor to serve you. Thank you for choosing [facility] HERE ARE THE MEDICATION CHANGES THAT OCCURRED [...] salt (sodium), or lopes (more content not included)...NormalPromedica Defiance Regional HospitalUA with Cult Rflxon 07-30-2024 Bilirubin Ql (U)NegativeNormalNegativePromedica Defiance Regional HospitalComment on above:Performed By: #### [id number] #### [facility] [address], [place] [address]Gpvctuf (U)ClearNormalClearPromedica Defiance Regional HospitalComment on above:Performed By: #### [id number] #### [facility] [address], [place] [address]Fplsj (U)Light-YellowNormalYellowPromedica Defiance Regional Hospital Comment on above:Result Comment: Microscopic readings are only performed on those samples that meet specific criteria set forth by [facility].Performed By: #### [id number] #### [facility] [address], [place] [address]Zdmsdavhts cells.squamous Auto (Urine sed) [#/Area]5-8Invalid Interpretation CodePromedica Defiance Regional HospitalComment on above:Performed By: #### [id number] #### [facility] [address], [place] [address]Hrwdirg Ql (U)2+ mg/dLAbnormalNegativePromedica Defiance Regional HospitalComment on above:Performed By: #### [id number] #### [facility] [address], [place] [address]Ncqwynxfyh Auto test strip (U) [Mass/Vol]3+ mg/dLAbnormal NegativePromedica Defiance Regional HospitalComment on above:Performed By: #### [id number] #### [facility] [address], [place] [address]Oxvjkpr Auto test strip Ql (U)NegativeNormalNegChildren's Hospital of ColumbusComment on above:Performed By: #### [id number] #### [facility] [address], [place] [address]Crynvzybb esterase Auto test strip Ql (U)250 Naomi/uLAbnormal NegativePromedica Defiance Regional HospitalComment on above:Performed By: #### [id number] #### [facility] [address], [place] [address]Hiqal Auto Ql (U)TraceNormalNegChildren's Hospital of Columbus Comment on above:Performed By: #### [id number] #### [facility] [address], [place] [address]Sfuewmk Auto test strip Ql (U)NegativeNormalNegativePromedica Defiance Regional HospitalComment on above:Performed By: #### [id number] #### [facility] [address], [place] [address]vJ (U)5.5 [pH]Invalid Interpretation Code5.0-9.0Promedica Defiance Regional HospitalComment on above:Performed By: #### [id number] #### [facility] [address] [place] [address]Pqtzekr Ql (U)NegativeNormalNegChildren's Hospital of Columbus Comment on above:Performed By: #### [id number] #### [facility] [address], [place] [address]JZX Ql (U)>91Ctqbhdmh5-8TlqisoCleveland Clinic Hillcrest HospitalComment on above:Performed By: #### [id number] #### [facility] [address] [place] [address]Wulaojjw gravity (U) [Rel density]1.018Invalid Interpretation Code1.005-1.030Prom[facility]ica Defiance Regional HospitalComment on above:Performed By: #### [id number] #### [facility] [address] [place] [address]Mikqhithshde (U) [Mass/Vol]NegativeNormalNegChildren's Hospital of ColumbusComment on above:Performed By: #### [id number] #### [facility] [address] [place] [address]VTH Auto (Urine sed) [#/Area]7-29Sjjptvwn4-7OkngdkCleveland Clinic Hillcrest HospitalComment on above:Performed By: #### [id number] #### [facility] [address] [place] [address]Kzapi.budding Computer assisted Ql (U)TraceAbnormalPromedica Defiance Regional HospitalComment on above:Performed By: #### [id number] #### [facility] [address] [place] [address]Ulxe of Urine collection methodClean CatchNormCleveland Clinic Akron GeneralComment on above:Performed By: #### [id number] #### [facility] [address] [place] [address] [place], [place] [address]JFUVQDKDTVJyaycti By: SYSTEM SYSTEM on 64-39-1499Khuloiyag Ql (U)NegativeNormalNegativemg/dLFT UA Auto SSClarity (U)Clear (07/30/24 8:44 AM)NormalClearFTMC UA Auto SSColor (U)Light-Yellow 1 (07/30/24 8:44 AM)NormalYellowFT UA Auto SSComment on above:Interpretive Data: Microscopic readings are only performed on those samples that meet specific criteria set forth by [facility].Epithelial cells.squamous Auto (Urine sed) [#/Area]5-8 graded/HPFInvalid Interpretation CodeFT UA Auto SSGlucose Ql (U)2+ mg/dLInvalid Interpretation Code Negativemg/dLFT UA Auto SSHemoglobin Auto test strip (U) [Mass/Vol]3+ mg/dL Invalid Interpretation CodeNegativemg/dLFT UA Auto SSKetones Auto test strip Ql (U)NegativeNormalNegativemg/dLFT UA Auto SSLeukocyte esterase Auto test strip Ql (U)250 Naomi/uL Naomi/uLInvalid Interpretation CodeNegativeLeu/uLINTEGRIS CANADIAN [facility]LEY [facility] UA Auto SSMucus Auto Ql (U)Trace graded/LPFNormalNegativegraded/LPFFTMC UA Auto SS Nitrite Auto test strip Ql (U)NegativeNormalNegativemg/dLFTMC UA Auto SSpH (U) 5.5 *NA* (07/30/24 8:44 AM)Invalid Interpretation Code5.0 - 9.0FT UA Auto SSProtein Ql (U)NegativeNormalNegativemg/dLFT UA Auto SSRBC Ql (U)>75 graded/HPFInvalid Interpretation Code0-3graded/HPFFTMC UA Auto SSSpecific gravity (U) [Rel density]1.018 *NA* (07/30/24 8:44 AM)Invalid Interpretation Code1.005 - 1.030FT UA Auto SS Urobilinogen (U) [Mass/Vol]NegativeNormalNegativemg/dLFT UA Auto SSWBC Auto (Urine sed) [#/Area]6-15 graded/HPFInvalid Interpretation Code0-5graded/HPFBARNSTABLE COUNTY HOSPITAL Auto SSYeast.budding Computer assisted Ql (U)Trace graded/HPFInvalid Interpretation CodeBARNSTABLE COUNTY HOSPITAL Auto SSURINALYSISOrdered By: Kevin Mann on 42-25-0710ZQ Spec DescClean Catch (07/30/24 8:44 AM)NormalINTEGRIS CANADIAN VALLEY [facility] UA Auto SS xr Abdomen 1 Viewon 51-15-6401LW Abdomen 1 ViewExam Date/Time: 07/30/2024 13:15 EDT Reason for Exam: [...] Odell Looney MD Transcribed by: WERNER Technologist: DPR Technical Comments Radiation Dose: Ka,r in mGy = 0.90 DAP = 66.72NormalPromedica Defiance Regional HospitaleGFRon 99-79-5579aTCK38 mL/min/1.73 m2Low>=59Promedica Defiance Regional HospitalComment on above:Performed By: #### [id number] #### [facility] [address], [place] [address]Xvsmhoclzf Visit Summaryon 48-68-1876Xrofnpmqkr Visit Summary Ambulatory Visit Summary CHELSEA CURRY :1945 MRN:[id number] Visit Date:07/24/2024 Ambulatory Visit Instructions Your Diagnosis [...] mg oral tablet) Procedures Performed Colonoscopy (01/30/2024), Esophagogastroduodenoscopy (01/30/2024), Colonoscopy (01/13/2017), Cystoscopy [...] of ureteric stent (06/2009), Rotator cuff repair (02/2008 ), Cystoscopic laser lithotripsy of ureteric calculus (11/2006), [...] sinus procedure, Operative procedure on hand, Repair ofmeniscus, T and A (tonsillectomy and adenoidectomy) postoperative education. Discharge Vitals Heart Rate (Peripheral) 101 Respiratory Rate 16 Blood Pressure 126/77 Height 165 cm Height 65 in Weight 64 kg Weight 140.8 lb BMI 23.51 What to do next Scheduled Follow-Up Appointments Monday 2:40 PM EST With: DEBBIE HERNANDEZ, ÁNGELA Barrios Where: [facility] [address] [place] [address]- Medications What How Much When Why Instructions New linaclotide (Linzess 145 mcg oral capsule) 1 Capsules By Mouth Every day Anticoagulated Mejia's esophagus History of colon polyps Constipation by outlet dysfunction Refills: 4 Pickup at [facility]/pharmacy #[id number] Unchanged bifidobacterium infantis (Align 4 mg oral capsule) 1 Capsules By Mouth Every day Abdominal cramping S/P cholecystectomy Stool incontinence Lipoma of stomach Contact prescribing physician ifquestions or concerns Unchanged cholecalciferol (Vitamin D3) 50 [...] 1 Tablets By Mouth Every day Mejia's esophagusDuration: 90 Days Contact prescribing physician if questions or concerns Unchanged pioglitazone (pioglitazone 15 mg Tab) 1 Tablets By Mouth Every day Contact prescribing physician if questions or concerns Unchanged rivaroxaban (Xarelto 20 mg oral tablet) 1 Tablets By Mouth Once a d (more content not included)...[facility] CampusGastroenterology Office/Clinic Noteon 58-25-2738Nkqluttvogcerhuh Office/Clinic Note Gastroenterology Office/Clinic Note Chief Complaint [...] soft, tender nondistended Assessment/Plan 1. 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 Mejia's esophagus (K22.70: Mejia's esophagus without dysplasia) Ordered: linaclotide, 145 mcg = 1 cap(s), Oral, Daily, # 30 cap(s), Refills(s) 4, Pharmacy: [facility]/pharmacy #[id number], 165, cm, 07/24/24 12:20:00 EDT, Height/Length Dosing, 64, k (more content not included)...[facility] Comment on above:Result Comment: Electronically Signed By: Mukesh SILVER, Abbie Canseco\.br\Date and Time Signed: 07/24/2412:50 EDTUrine Cytology ([facility])on 21-02-3867Malsilgynby exam Cytology (U) [Interp]Diagnosis InfoInvalid Interpretation Park[facility] HospitalComment on above:Result Comment: A:Urine,Urine:Voided Interpretation - Negative for dysplastic cells or malignancy. Reactive urothelial cells present. Adequate cellularity for evaluation. MicroScopic Description - Adequacy - Adequate Gross Description Site ID:A color Yellow fixative Alcohol Specimen designated Urine received in alcohol preservative and labeled with the patient?s name, consists of 70ml clear yellow fluid. Electronically signed by : on: 06/16/2024 11:23:56Performed By: #### [id number] #### [facility] [address], [place] [address]Hgjmzmkjhb Visit Summaryon 70-31-2865Hicbivdzsm Visit Summary Ambulatory Visit Summary CHELSEA CURRY :1945 Visit Date:06/11/2024 Ambulatory [...] 5 mg Tab) Procedures Performed Colonoscopy (01/30/2024), Esophagogastroduodenoscopy (01/30/2024), Colonoscopy (01/13/2017), Cystoscopy [...] of ureteric stent (06/2009), Rotator cuff repair (02/2008 ), Cystoscopic laser lithotripsy of ureteric calculus (11/2006), [...] sinus procedure, Operative procedure on hand, Repair ofmeniscus, T and A (tonsillectomy and adenoidectomy) postoperative education. Discharge Vitals Temperature (Temporal Artery) 36.8 ?C Heart Rate (Peripheral) 60 Respiratory Rate 16 Blood Pressure 118/61 Height 165 cm Height 65 in Weight 68.5 kg Weight 150.7 lb BMI 25.16 What to do next Scheduled Follow-Up Appointments Monday 2:40 PM EST With: ÁNGELA JUAREZ PA-C Where: [facility] [address] [place] [address]- You Need to Schedule the Following Appointments Follow Up with ÁNGELA JUAREZ PA-C, URL When: Where: [address] [place] [address] [phone] Medications What How Much When Why Instructions New trospium (trospium 20 mg oral tablet) 1 Tablets By Mouth Every day Duration: 30 Days Refills: 11 take in morning on an empty stomach Pickup at [facility]/pharmacy #[id number] Unchanged bifidobacterium infantis (Align 4 mg oral capsule) 1 Capsules By Mouth Every day Abdominal cramping S/P cholecystectomy Stool incontinence Lipoma of stomach Contact prescribing physician ifquestions or concerns Unchanged cholecalciferol (Vitamin D3) 50 [...] Unchanged mirtazapine 15 M (more content not included)...[facility] CampusUrine Cytology ([facility])on 55-89-2402BJ Method of ExtractionVoided [facility]ron CampusComment on above:Performed By: #### [id number] #### [facility] [address], [place] [address]KB Number of [id number] Interpretation Parkwood HospitalComment on above:Performed By: #### [id number] #### [facility] [address], [place] [address]RB SpecimenUrineNoMercy Health St. Elizabeth Boardman HospitalComment on above:Performed By: #### [id number] #### [facility] [address], [place] [address]OL Type of ServiceTechnical OnlySumma Health Akron CampusComment on above:Performed By: #### [id number] #### [facility] [address], [place] [address]Amdieln Office/Clinic Noteon 11-90-0993Rcrvamm Office/Clinic NoteUrology Office/Clinic Note Chief Complaint kidney stones HPI [...] IgA nephropathy, interstitial nephritis, etc), Tuberculosis, thrombosis (renalvein thrombosis, renal infarct, pseudoaneurysm, etc) and hematologic [...] reposition at times (more content not included)... [facility] CampusComment on above:Result Comment: Electronically Signed By: ÁNGELA JUAREZ PA-C\.br\Date and Time Signed: 06/11/2414:48 EDT\.br\Electronically Co-Signed By: Fina Yap\.br\Date and Time Co-Signed: 06/11/24 14:12 EDTAmbulatory Visit Summaryon 36-86-3343Cmgsgcbtrs Visit Summary CHELSEA CURRY Jamey :1945 Visit Date:04/18/2024 Ambulatory Visit Instructions Your [...] 5 mg Tab) Procedures Performed Colonoscopy (01/30/2024), Esophagogastroduodenoscopy (01/30/2024), Colonoscopy (01/13/2017), Cystoscopy [...] of ureteric stent (06/2009), Rotator cuff repair (02/2008 ), Cystoscopic laser lithotripsy of ureteric calculus (11/2006), [...] sinus procedure, Operative procedure on hand, Repair ofmeniscus, T and A (tonsillectomy and adenoidectomy) postoperative [...] Lipoma of stomach Refills: 4 Pickup at [facility]/pharmacy #[id number] New colesevelam (Welchol 625 mg Tab) 3 Tablets By Mouth 2 times a day Abdominal cramping S/P cholecystectomy Stool incontinence Lipoma of stomach Refills: 3 Pickup at [facility]/pharmacy #[id number] New colesevelam (Welchol 625 mg Tab) 3 Tablets By Mouth 2 times a day Abdominal cramping S/P cholecystectomy Stool incontinence Lipoma of stomach Pickup at [facility] Unchanged cholecalciferol (Vitamin D3) 50 [...] 100 mg oral tablet) Contact prescribing physician ifquestions or concerns Unchanged glimepiride (glimepiride 4 mg [...] 1 Tablets By Mouth Every day Mejia's esophagusDuration: 90 Days Contact prescribing physician if questions or concerns Unchanged pioglitazone (pioglitazone 15 mg Tab) 1 Tablets By Mouth Every day Contact prescribing physician if questions or concerns Unchanged kosta (more content not included)...[facility] Gastroenterology Office/Clinic Noteon 35-19-4210Olnmzcwhryuuqeju Office/Clinic NoteChief Complaint follow up to egd/colon HPI Staff Patient is a 78 year old female here today to review results from EGD and colonoscopy. Patient alsoc/o still having issues diarrhea abdominal cramping EUS [...] diarrhea. Previous colonoscopy with Dr. Copeland at [facility] 01/13/2017 revealed 5 mm sessile sigmoidpolyp removed, sigmoid colon biopsy revealed hyperplastic polyp, ascending colon biopsy revealed nosignificant pathologic changes, no evidence of active colitis, [...] times. Previous colonoscopy with Dr. Copeland at [facility] 01/13/2017 revealed 5 mm sessile sigmoidpolyp removed, sigmoid colon biopsy revealed hyperplastic polyp, ascending colon biopsy revealed nosignificant pathologic changes, no evidence of active colitis, [...] Patient reports she was (more content not included)...[facility] CampusComment on above:Result Comment: Electronically Signed By: Mukesh SILVER, Abbie Canseco\.br\Date and Time Signed: 04/18/2410:42 EDTOperative Reporton 01-36-1541Ikjahztfc [id number]#1.00TIFF [facility] CampusPathology Noteon 00-23-6666Xoofiruml Note [id number]#1.00TIFFSumma Health Akron CampusReminderson 23-63-1990Znflinhgn From: Jose Alanis To: [facility] - Reminders/Recalls; Sent: 02/07/2024 09:46:06 EDT Show up: 12/28/2028 09:45:00 EST Subject: Ambulatory Reminder Due Date/Time: 01/29/2029 09:45:00 EDT Reminder/Recall Repeat colonoscopy in 5 years(2028) for hx of colon polypsNoMercy Health St. Elizabeth Boardman HospitalResult Letter Officeon 69-41-2734Gvqqfx Letter Office February 07, 2024 CHELSEA CURRY [address] [place] [id number] : 1945 Below is a summary of [...] a reminder letter prior to your next duedate. [facility] [phone] Elizabeth Boardman HospitalPostoperative Documentson 48-23-2294Dxjovifcmtlne Documents [id number]#1.00TIFWhite HospitalIntraOperative Documentson 45-69-1501AabtzNnqxacaxn Documents [id number]#1.00TIFWhite HospitalPhysician Referralon 08-60-5544Qqdhmlrrf Referral [id number]#1.00TIFFNormalFisher Upmc Western MarylandProgress Note-Physicianon 02-45-0984Wrebspuu Note-PhysicianPatient: CHELSEA CURRY Age: 78 years Sex: Female [...] UTI (urinary tract infection) / SNOMED CT 514821928 / Confirmed Urinary incontinence / SNOMED CT 4468516459 / Confirmed Urinary urgency / SNOMED CT 492664700 / Confirmed Urge incontinence / SNOMED CT 765458932 / Confirmed Other urethral stricture, female / SNOMED CT 850476084 / Confirmed Unintentional weight loss / SNOMED CT 4296438929 / Confirmed Pyelonephritis / SNOMED CT 14792848 / Confirmed Osteoarthritis / SNOMED CT 8632994878 / Confirmed Nocturia / SNOMED CT 277779780 / Confirmed Schatzki's ring / SNOMED CT 970842269 / Confirmed Kidney stones / SNOMED CT 420306892 / Confirmed Urinary frequency / SNOMED CT 595376207 / Confirmed Urinary incontinence without sensory awareness / SNOMED CT 5141163921 / Confirmed Fecal incontinence / SNOMED CT 687581186 / Confirmed Mixed stress and urge incontinence / SNOMED CT 68443978 / Confirmed Mixed incontinence / SNOMED CT 79709438 / Confirmed Hypothyroidism / SNOMED CT 84461021 / Confirmed Hypertension / SNOMED CT 1359075650 / Confirmed Hyperlipidemia / SNOMED CT 34493742 / Confirmed History of colon polyps / SNOMED CT 3529399388 / Confirmed H/O blood clots / SNOMED CT 974664133 / Confirmed Glucosuria / SNOMED CT 21397312 / Confirmed Acid reflux / SNOMED CT 551396751 / Confirmed Abdominal cramping / SNOMED CT 654695240 / Confirmed Dysphagia / SNOMED CT 96341693 / Confirmed Anticoagulated / SNOMED CT 748876643 / Confirmed Diabetes / SNOMED CT 381964871 / Confirmed Urinary hesitancy / SNOMED CT 997713361 / Confirmed Renal cyst / SNOMED CT 3674129958 / Confirmed Chronic diarrhea / SNOMED CT 796319019 / Confirmed Chronic cystitis / SNOMED CT 19431481 / Confirmed Mejai's esophagus / SNOMED CT 487021325 / Confirmed Histories Procedure history: Colonoscopy (831697540) on 01/13/2017 at 71 Years. Cystoscopy (84101001) on 04/27/2016 at 70 Years. Cystoscopic removal of ureteric stent (593740607) on 04/20/2012 at 66 Years. Cystoscopic insertion of ureteric stent (104618089) on 04/06/2012 at 66 Years. ESWL- Right (499745248) on 04/01/2012 at 66 Years. Cysto/ BL RG (829808789) on 09/29/2010 at 65 Years. ESWL- Right (046255925) on 12/31/2009 at 64 Years. ESWL- Right (866280705) on 12/16/2009 at 64 Years. Cystoscopic laser lithotripsy of ureteric calculus (836422859) in the month of 07/2009 at 64 Years. Cystoscopic removal of ureteric stent (928287978) on 07/30/2009 at 64 Years. Cystoscopic insertion of ureteric stent (736056729) in the month of 06/2009 at 64 Years. Rotator cuff repair- right (731367461) in the month of 02/2008 at 62 Years. Cystoscopic laser lithotripsy of ureteric calculus (131994103) in the month of 11/2006 at 61 Years. Cystoscopic removal of ureteric stent (174496277) in the month of 11/2006 at 61 Years. ESWL - Extracorporeal shockwave lithotripsy for renal calculus (968057353) in the month of 01/2006 at 60 Years. ESWL - Extracorporeal shockwave lithotripsy for renal calculus (378091895) in the month of 03/2005 at 59 Years. ESWL - Extracorporeal shockwave lithotripsy for renal calculus (670230859) in the month of 08/2002 at 57 Years. Cystoscopic insertion of ureteric stent (589944517) in the month of 08/2002 at 57 Years. ESWL (858794035) in the month of 07/2002 at 57 Years. Cystoscopic insertion of ureteric stent (846951510) in the month of 07/2002 at 57 Years. Laminectomy with spinal fusion (378026097) in 1998 at 54 Years. Appendectomy (278252400). Carpal tunn (more content not included)...[facility] Comment on above:Result Comment: Electronically Signed By: Jaron Faustin Jr, DO\.br\Date and Time Signed: 02/01/24 07:45 EDTProgress Note-PhysicianPatient: CHELSEA CURRY Age: 78 years Sex: Female : 1945 Associated Diagnoses: None Author: Jaron Faustin Jr, DO Postoperative Information Postoperative disposition: Postoperative disposition: To PACU. Optimetrix number: Optimetrix number [id number]. Anesthetic utilized: General. Health Status Allergies: Allergic [...] Discharge when meets criteria ( To home ).[facility] CampusComment on above:Result Comment: Electronically Signed By: Jaron Faustin Jr, DO\mckay\Date and Time Signed: 02/01/24 07:45 EDTConsenton 25-45-9184Qhormrc [id number]#1.00TIFFNormCleveland Clinic Akron GeneralDischarge Instructionson 23-39-7768Zdftelawp Instructions [id number]#1.00TIFFNormalVijay [facility] MarylandMain OR Intraoperative Recordon 89-65-0179Mcat OR Intraoperative Record IntraOp Document Type FT Summary Primary Physician: Abbie Mayorga MD Finalized Date/Time: 01/31/24 09:00:23 Pt. Name: CHELSEA CURRY /Sex: 1945 Female Med Rec #: [id number] Physician: Abbie Mayorga MD Financial #: [id number] Pt. Type: O Room/Bed: / Admit/Disch: 01/30/24 [...] started. /,RN 01/31/24 Chart opened for charge reviewper Abi Huerta RN. [place] Case Attendance FT Entry 1 Entry 2 Entry 3 Case Attendee Deppen ESTHER, Irena Lindo RN, Curtis Thomas Role Performed FIELD SPECIALIST Ribbon Inker - Primary Scrub - Primary Time In 01/30/24 08:51:00 01/30/24 08:51:00 01/30/24 08:51:00 Time Out 01/30/24 09:36:00 01/30/24 09:36:00 01/30/24 09:36:00 Procedure EGD AND COLONOSCOPY(.) EGD AND COLONOSCOPY(.) EGD AND COLONOSCOPY(.) Comments Dr. Faustin supervising case Last Modified By: Guicho HOLLAND, Mily Lindo RN, Mily Lindo RN, Mily Méndez 01/30/24 [...] Outcomes Met? Yes Last Modified By: Mily Lidno RN 01/30/24 08:55:27 Post-Care Text: The patient [...] and tissue Entry 1 Skin Integrity Intact, [place], Warm, and Skin Abnormality No Dry Outcomes Met? Yes Last Modified By: Mily Lindo RN 01/30/24 08:56:51 Post-Care Text: The patient is free from signs an (more content not included)...[facility] CampusColonoscopy Procedure Reporton 13-86-6964Jcduyhmqgzw Procedure ReportPatient: CHELSEA CURRY Age: 78 years Sex: Female [...] day(s), # 90 tab(s), Refills(s) 2, Pharmacy: [facility], 162.5, cm, 01/17/24 14:37:00 EDT, Height/Length Dosing, 67, kg, 01/17/24 14:37:00 EDT, Weight Dosing Vesicare 5 mg Tab: 5 mg = 1 tab(s), Oral, Daily, # 90 tab(s), Refills(s) 3, Pharmacy: [facility], 165, cm, 12/12/22 13:46:00 EST, Height/Length Dosing, 70.4, kg, 12/12/22 13:46:00 EST, Weight Dosing Vesicare 5 mg Tab: 5 mg = 1 tab(s), Oral, Every other day, # 30 tab(s), Refills(s) 11, Pharmacy: [facility], 165, cm, 12/12/22 13:46:00 EST, Height/Length Dosing, 70.4, kg, 12/12/22 13:46:00 EST, Weight Dosing clobetasol propionate 0.05% top oint: See Instructions, 30 gm, Refill(s) 2, Apply to affected area every 12 hours as needed for pain/discomfort., [facility], 165, cm, 12/12/22 13:46:00 EST,Height/Length [...] the left lateral decubitus position. Endoscope type usedwas. The endoscope was lubricated then introduced through [...] Internal hemorrhoids Normal TI Images Procedure images: Rec_hd_video__T08_27_39_488.jpg Rec_hd_video__T08_30_35_534.jpg Rec1_hd_video_2023__T08_30_49_651.jpg Rec1_hd_video_2023__T08_31_55_547.jpg Rec1_hd_video_2023__T08_33_28_220.jpg Rec1_hd_video_2023__T08_34_55_367.jpg Rec1_hd_video_2023__T08_35_45_430.jpg Rec1_hd_video_2023__T08_40_24_352.jpg . Post-Procedure Complications: none. Estimated blood loss: none. Specimens: sent to pathology. Devices/ implants: none left in place. 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 Recommendations: Repeat colonoscopy:: In 5 years. Follow-up:: Await biopsy results in 3-5 days, (more content not included)... [facility] CampusComment on above:Other Comment: Missing Attachment - attachment storage system not supported [id number] Can be viewed in source systemMissing Attachment - attachment storage system not supported [id number] Can be viewed [facility] systemMissing Attachment - attachment storage system not supported [id number] Can be viewed in source systemMissing Attachment - attachment storage system not supported [id number] Can be viewed in source systemMissing Attachment - attachment storage system not supported [id number] Can be viewed in source systemMissing Attachment - attachment storage system not supported 6915754 Can be viewed in source systemMissing Attachment - attachment storage system not supported [id number] Can be viewed in source systemMissing Attachment - attachment storage system not supported [id number] Can be viewed in source systemConsent for Treatmenton 21-99-8278Vczdktl for Treatment [id number]#1.00TIFFNormCleveland Clinic Akron GeneralDischarge Instructionson 62-81-4325Mdbavqtej Instructions CHELSEA CURRY :1945 Visit Date:01/30/2024 Inpatient [...] 5 mg Tab) Procedure History Colonoscopy (01/30/2024), Esophagogastroduodenoscopy (01/30/2024), Colonoscopy (01/13/2017), Cystoscopy [...] of ureteric stent (06/2009), Rotator cuff repair (02/2008 ), Cystoscopic laser lithotripsy of ureteric calculus (11/2006), [...] sinus procedure, Operative procedure on hand, Repair ofmeniscus, T and A (tonsillectomy and adenoidectomy) postoperative education. What to do next Instructions From Your Doctor Event Name Event Result Pharmacy Information [facility] New Follow Up Appointments after Discharge Follow [...] 1 Tablets By Mouth Every day Mejia's esophagusDuration: 90 Days Unchanged pioglitazone (pioglitazone 15 mg [...] reflux Anticoagulated Mejia's esophagus (more content not included)...[facility] CampusComment on above: Result Comment: Electronically Signed By: Latrice Metcalf I\.br\Date and Time Signed: 01/30/24 09:45 EDTEGDon 87-06-4844WegknyutbrlbwdlqfqoyythihpHolnelg: CHELSEA CURRY Age: 78 years Sex: Female : 1945 Associated Diagnoses: None Author: Abbie Mayorga MD Pre-Procedure Procedure Date 12/22/2023 09:18:00 . Procedure Type: Esophagogastroduodenoscopy with biopsy. Procedure provider Performed by Abbie Maoyrga MD. Current history and physical Documented on [...] day(s), # 90 tab(s), Refills(s) 2, Pharmacy: [facility], 162.5, cm, 01/17/24 14:37:00 EDT, Height/Length Dosing, 67, kg, 01/17/24 14:37:00 EDT, Weight Dosing Vesicare 5 mg Tab: 5 mg = 1 tab(s), Oral, Daily, # 90 tab(s), Refills(s) 3, Pharmacy: [facility], 165, cm, 12/12/22 13:46:00 EST, Height/Length Dosing, 70.4, kg, 12/12/22 13:46:00 EST, Weight Dosing Vesicare 5 mg Tab: 5 mg = 1 tab(s), Oral, Every other day, # 30 tab(s), Refills(s) 11, Pharmacy: [facility], 165, cm, 12/12/22 13:46:00 EST, Height/Length Dosing, 70.4, kg, 12/12/22 13:46:00 EST, Weight Dosing clobetasol propionate 0.05% top oint: See Instructions, 30 gm, Refill(s) 2, Apply to affected area every 12 hours as needed for pain/discomfort., [facility], 165, cm, 12/12/22 13:46:00 EST,Height/Length [...] the left lateral decubitus position. Endoscope type usedwas, introduced orally, advanced to the 2nd portion [...] segment status post biopsies Images Procedure images: Rec_hd_video_2023__08_09_46_157.jpg Rec_hd_video___10_18_303.jpg Rec_hd_video__08_10_47_387.jpg Rec_hd_video__T08_10_57_172.jpg Rec1_hd_video_2023__T08_11_09_274.jpg Rec1_hd_video_2023__T08_11_25_264.jpg Rec1_hd_video_2023__T08_11_35_248.jpg Rec1_hd_video_2023__T08_12_17_396.jpg Rec1_hd_video_2023__T08_12_43_443.jpg Rec1_hd_video_2023__T08_13_02_897.jpg Rec1_hd_video_2023__T08_14_23_214.jpg . Post-Procedure Complications: none. Estimated blood loss: none. Specimens: sent to pathology. Devices/ implants: none left in place. Notes: Increase pantoprazole to twice a day Repeat EGD aft (more content not included)...[facility] Comment on above:Other Comment: Missing Attachment - attachment storage system not supported [id number] Can be viewed in source system Missing Attachment - attachment storage system not supported [id number] Can be viewed in source systemMissing Attachment - attachment storage system not supported [id number] Can be viewed in source systemMissing Attachment - attachment storage system not supported [id number] Can be viewed in source systemMissing Attachment - attachment storage system not supported [id number] Can be viewed in source systemMissing Attachment - attachment storage system not supported 3872108 Can be viewed in source systemMissing Attachment - attachment storage system not supported 2154309 Can be viewed in source systemMissing Attachment - attachment storage system not supported [id number] Can be viewed in source system Missing Attachment - attachment storage system not supported 8581352 Can be viewed in source systemMissing Attachment - attachment storage system not supported [id number] Can be viewed in source systemMissing Attachment - attachment storage system not supported [id number] Can be viewed in source systemMain OR PACU I Recordon 68-14-3993Zgbf OR PACU I RecordPACU Phase I Document Type FT Summary Primary Physician: Abbie Mayorga MD Finalized Date/Time: 01/30/24 10:18:51 Pt. Name: CHELSEA CURRY Jamey Castillo/Sex: 1945 Female Med Rec #: [id number] Physician: Abbie Mayorga MD Financial #: [id number] Pt. Type: O Room/Bed: / Admit/Disch: 01/30/24 [...] individualized perioperative plan of care The patient's rightto privacy is maintained The patient's value system, [...] with or improved from baseline levels established preoperativelyThe patient's cardiovascular status is consistent with or improved from baseline levels established preoperatively The patient's cardiovascular status is consistent with or improved from baseline levels established preoperatively The patient demonstrates and/or reports adequate pain control throughout the perioperative period The patient received appropriate medication(s), safely administered during the perioperativeperiod Acuity Level PACU I FT Entry 1 Start Time 01/30/24 09:38:00 Stop Time 01/30/24 10:08:00 Acuity Level Acuity Level I Last Modified By: Latrice Metcalf I 01/30/24 10:18:48 Finalized By: Latrice Metcalf I Document Signatures Signed By: Latrice Metcalf I 01/30/24 10:18[facility] CampusMain OR Preoperative Recordon 19-72-6852Swfm OR Preoperative RecordHolding Area Document Type FT Summary Primary Physician: Abbie Mayorga MD Finalized Date/Time: 01/30/24 07:58:42 Pt. Name: CHELSEA CURRY Jamey Castillo/Sex: 1945 Female Med Rec #: [id number] Physician: Abbie Mayorga MD Financial #: [id number] Pt. Type: O Room/Bed: / Admit/Disch: 01/30/24 [...] or her perioperative plan of care The patient'sright to privacy is maintained Surgery Checklist FT [...] Signatures Signed By: Ashanti Tijerina RN 01/30/24 07:58NoMagruder Hospitalitor Recordon 63-83-7753Wovunuy Record [id number]. John of God Hospitalitor [id number]#1.00TIFMartins Ferry HospitalPatient Education - Texton 94-97-9503Fwftvmz Education - TextColonoscopy Care After Surgery Please read the instructions outlined below and refer to this sheet in the next few weeks. These discharge instructions provide you with general information on caring [facility] Your doctor may also give you specific [...] on caring for yourself after you leave thespital. Your doctor may also give you specific [...] Document Re-Released: 04/09/2007 ExitCare? Patient Information ?2009 [employer]. Gastroenterology Hemorrhoids Hemorrhoids are swollen veins that [...] butt. How is this (more content not included)...[facility] Consent for Procedure/Surgeryon 93-17-0072Ehyyaip for Procedure/Surgery [id number]#1.00TIFFNormCleveland Clinic Akron GeneralFormson [id number]#1.00TIFF [facility] CampusGastroenterology Office/Clinic Noteon 58-42-1622Lnspyqvbkceryoea Office/Clinic NoteChief Complaint Diarrhea HPI Staff Patient is a [...] labs 02/2023 that revealed normal H&H, labs from03/22/2023 revealed elevated BUN of 24, normal creatinine, normal LFTs, slightly elevated total bilirubin of 1.3. Review of outside records from [facility] indicates patient had previous x-ray of abdomen 01/11/2024 that revealed stable bilateral nephrolithiasis. Review of outside record indicates patient had previous colonoscopy with Dr. Copeland at [facility] 01/13/2017 that revealed 5 mm sessile sigmoid polyp removed, sigmoid colon biopsy revealed hyperplastic polyp, ascending colon biopsy revealed no significant pathologic changes, no evidence of active colitis, rectal biopsy revealed no significant pathologic changes, no evidence of active colitis. Review of record indicates patient had previous anorectal manometry 09/2017 that revealed weak analsphincter pressure at rest and during squeezing. Review [...] mucosa, small HH, normal duodenal mucosa, biopsy ofnodular mucosa at z-line revealed intestinal metaplasia, consistent [...] she reports did not help her diarrhea. Hasdifficulty swallowing with solids occurring 3 times a [...] diarrhea. Previous colonoscopy with Dr. Copeland at [facility] 01/13/2017 revealed 5 mm sessile sigmoidpolyp removed, sigmoid colon biopsy revealed hyperplastic polyp, ascending colon biopsy revealed nosignificant pathologic changes, no evidence of active colitis, rectal biopsy revealed no significant pathologic changes, no evidence of active colitis. Denies knowledge of FH crohn's or ulcerative colitis. Ordered stool testing to evaluate for infectious process. Ordered Colonoscopy to evaluate for colitis, IBD, colon polyps/cancer. Previous anorectal ma (more content not included)...[facility] CampusComment on above:Result Comment: Electronically Signed By: Dulce Holguin CNP\.br\Date and Time Signed: 01/18/24 10:45 EDTAmbulatory Visit Summaryon 51-29-9384Esdqxwtqqd Visit Summary CHELSEA CURRY :1945 Visit Date:01/17/2024 Ambulatory Visit Instructions Your Diagnosis Chronic diarrhea Fecal incontinence Abdominal cramping Unintentional weight loss Mejia's esophagus Dysphagia Schatzki's ring Acid reflux History of colon polyps Your Care Team Attending Physician - Dulce Holguin CNP Primary Care Physician - JARED HEDIRCK MD This Is Your Medications List pantoprazole [...] Cystoscopy and retrograde pyelography (09/29/2010), ESWL - Extraco rporeal shockwave lithotripsy for renal calculus (12/31/2009), ESWL [...] (08/2002), ESWL - Extracorporeal shockwave lithotripsy for renalcalculus (08/2002), Cystoscopic insertion of ureteric stent (07/2002), [...] collect, 01/17/24, Order for future visit, Nurse collect,Chronic diarrheaInvalid Interpretation CodeFecal incontinence, Print Label By Order Location\.br\ Fecal WBC Lactoferrin, Stool, Routine collect, 01/17/24, Order for future visit, Nurse collect, Chronic diarrheaPromedica Defiance Regional HospitalConsultation Noteon [id number] [id number]#1.00TIFFNormalPromedica Defiance Regional HospitalPatient Educationon 05-07-3973Vtbnnte EducationGastroenterology Chronic Diarrhea Chronic diarrhea is a condition [...] these instructions at home: Medicines ? Take cxun-ept-ibvknmz and prescription medicines only as told by [...] that keeps you hydrated. It can be foundat pharmacies and retail stores. ? Drink clear [...] and water are not available, use hand utility worker woolen mill. ? Make sure that all people in [...] and water are not available, use hand utility worker woolen mill. This information is not intended to replace advice given to you by your health care provider. Make sure you discuss any questions you have with your health care provider. Document Revised: 01/06/2023 Document Reviewed: 04/13/2020 [employer] Patient Education ? 2022 [employer].[facility] RAD - MISCon 94-40-9493NSD - MIS [id number]#1.00TIFWhite HospitalLab Reportson 04-66-4527Yqe Reports [id number]#1.00TIFDayton Osteopathic Hospital [id number]#1.00[facility] [id number]#1.00TIFF [facility] Reportson 29-11-5692Aou Reports [id number]#1.00TIFFAv[facility] Health System [facility] - [facility]IS[facility] 28-32-8332ZBN - [facility] [id number]#1.00TIFWhite HospitalPhysician Referralon 01-87-8799Zosbfejlp Referral [id number]#1.00TIFWhite HospitalCT SHOULDER LEFT W/O CONTRASTon 23-61-3257XB SHOULDER LEFT W/O CONTRAST HISTORY: Left shoulder [...] and signed by Evert Fisher on 02/28/2023 1643NoMercy Hospitalcreening Mammogram, Bilateralon 31-72-8700Xlgfzamrf Mammogram, BilateralCLINICAL HISTORY: Screening Mammogram. COMPARISON: Priors from 2021, [...] IS VERY IMPORTANT TO YOUR HEALTH. THE [employer] GUIDELINES RECOMMEND THAT WOMEN 40 [...] and signed by Evert Fisher on 02/03/2023 1201NoSt. Mary's Medical CenterUS Spleenon 71-47-0362NW SpleenCLINICAL HISTORY: Splenic artery aneurysm. COMPARISON: CT abdomen and pelvis [...] and signed by Jared Morrissey on 02/03/2023 1525NormalNorthern Greenwich HospitalXR KUB 1 VIEWon 93-02-2701EY KUB 1 VIEWEXAMINATION: XR KUB 1 VIEW HISTORY: Kidney stone [...] Electronically authenticated by: ALFONSO AVILA Date: 2022-12-13 07:23[facility] Carotid, Bilateralon 84-70-0736PX Carotid, BilateralCLINICAL HISTORY: History of carotid stenosis. High cholesterol. [...] and signed by Evert Fisher on 07/21/2022 1339NormalNorthern West Virginia Medical SpecialistCBC AUTO DIFFon 86-17-2499JKHR #0.1 103/ulNormal0.0-0.1 The [facility] HospitalComment on above:Performed By: #### CBC #### [facility] [address], [place] [address] Dr. Chung Vegasphils/100 WBC (Bld)1.3 %Normal0.2-2.0The [facility] Comment on above:Performed By: #### CBC #### [facility] [address] [place], [place] [address] Dr. Chung Hernandez #0.1 103/ulNormal0.0-0.7The [facility] HospitalComment on above: Performed By: #### CBC #### [facility] [address] [place] [address] Dr. Chung Carbajalosinophils/100 WBC (Bld)2.3 %Normal0.9-7.0The [facility] Comment on above:Performed By: #### CBC #### [facility] [address] [place] [address] Dr. Chung Carbajalrythrocyte distribution width (RBC) [Ratio]13.0 %Wbhxfc07.0-15.0 The [facility] HospitalComment on above:Performed By: #### CBC #### [facility] [address] [place] [address] Dr. Chung StrongHematocrit (Bld) [Volume fraction]44.7 %Pczkkf63.0-48.0The [facility] HospitalComment on above:Performed By: #### CBC #### [facility] [address] [place] [address] Dr. Chung StrongHemoglobin (Bld) [Mass/Vol]14.9 g/rMDspnri37.0-16.0The [facility] HospitalComment on above:Performed By: #### CBC #### [facility] [address] [place] [address] Dr. Chung Oates #0.02 10e3/ulNormal0.00-0.03The [facility] HospitalComment on above:Performed By: #### CBC #### [facility] [address] [place] [address] Dr. Chung Oates %0.4 %Normal0.0-0.5The Kettering Health Daytonment on above: Performed By: #### CBC #### [facility] [address] [place] [address] Dr. Chung YoungH #1.7 103/ulNormal1.2-3.8The [facility] HospitalComment on above:Performed By: #### CBC #### [facility] [address] [place] [address] Dr. Chung Caballeromphocytes/100 WBC (Bld)32.3 %Udkhqr95.5-60.0The [facility] HospitalComment on above:Performed By: #### CBC #### [facility] [address] [place] [address] Dr. Chung Rashid DIFF REQNONormalThe [facility] HospitalComment on above: Performed By: #### CBC #### [facility] [address] [place] [address] Dr. Chung Haywood (RBC) [Entitic mass]32.2 dsGeoazh90.7-34.0The [facility]ainbridge HospitalComment on above:Performed By: #### CBC #### [facility] [address] [place] [address] Dr. Chung Haywood (RBC) [Mass/Vol]33.3 g/yEOinszt81.9-35.2The [facility] HospitalComment on above:Performed By: #### CBC #### [facility] [address] [place] [address] Dr. Chung Haywood (RBC) [Entitic vol]96.5 xULxozdo09.0-99.0The [facility] HospitalComment on above:Performed By: #### CBC #### [facility] [address] [place] [address] Dr. Chung Bauer #0.5 103/ulNormal0.3-0.8The [facility] HospitalComment on above:Performed By: #### CBC #### [facility] [address] [place] [address] Dr. Chung Lillyocytes/100 WBC (Bld)9.6 %Normal1.7-12.0The [facility] Comment on above:Performed By: #### CBC #### [facility] [address] [place] [address] Dr. Chung Mason #2.9 103/ulNormal1.4-6.5The [facility] HospitalComment on above:Performed By: #### CBC #### [facility] [address] [place] [address] Dr. Chung Arnettutrophils/100 WBC (Bld)54.1 %Rziaii49.0-75.0The [facility] HospitalComment on above:Performed By: #### CBC #### [facility] [address] [place] [address] Dr. Chung Vilchislet mean volume (Bld) [Entitic vol]9.9 fLNormal9.5-13.5The [facility] HospitalComment on above:Performed By: #### CBC #### [facility] [address] [place] [address] Dr. Chung StrongPLT193 103/upBkqybg234-198Mze [facility] HospitalComment on above: Performed By: #### CBC #### [facility] [address] [place] [address] Dr. Chung StrongRBC4.63 106/ulNormal4.20-5.40The [facility] HospitalComment on above:Performed By: #### CBC #### [facility] [address] [place] [address] Dr. Chung StrongWBC5.3 103/ulNormal4.0-11.0The [facility] HospitalComment on above: Performed By: #### CBC #### [facility] [address] [place] [address] Dr. Chung Roth 14(COMP METB)on 00-79-4051Yhwggih [Mass/Vol]3.8 g/dLNormal 3.4-5.0The [facility] HospitalComment on above:Performed By: #### CMP #### [facility] [address] [place] [address] Dr. Cuhng StrongAlbumin/Globulin [Mass ratio]1.3 {ratio}NormalThe [facility] HospitalComment on above:Performed By: #### CMP #### [facility] [address] [place] [address] Dr. Chung Britton [Catalytic activity/Vol]73 U/YCwnziq13-650Gfk [facility] HospitalComment on above:Performed By: #### CMP #### [facility] [address] [place] [address] Dr. Yilan ChangALT [Catalytic activity/Vol]31 U/AUwkaxn05-58Fzy [facility] HospitalComment on above:Performed By: #### CMP #### [facility] [address] [place] [address] Dr. Chung Rajputon gap [Moles/Vol]9.4 mmol/LNormalThe [facility] HospitalComment on above:Performed By: #### CMP #### [facility] [address] [place] [address] [address] Chung StrongAST [Catalytic activity/Vol]16 U/IKjarpi33-80Vpm [facility] HospitalComment on above:Performed By: #### CMP #### [facility] [address] [place] [address] Dr. Chung StrongBilirubin [Mass/Vol]0.7 mg/dLNormal0.2-1.0The [facility] Comment on above:Performed By: #### CMP #### [facility] [address] [place] [address] Dr. Chung StrongCalcium [Mass/Vol]9.5 mg/dLNormal8.5-10.1The [facility] Comment on above:Performed By: #### CMP #### [facility] [address] [place] [address] Dr. Chung StrongChloride [Moles/Vol]103 mmol/ROivrin07-955Vlq [facility] Comment on above:Performed By: #### CMP #### [facility] [address] [place] [address] Dr. Chung StrongCO2 [Moles/Vol]31.0 mmol/HGmlndo65.0-32.0The [facility] Comment on above:Performed By: #### CMP #### [facility] [address] [place] [address] Dr. Chung StrongCreatinine [Mass/Vol]0.93 mg/dLNormal0.55-1.02The [facility] HospitalComment on above:Performed By: #### CMP #### [facility] [address] [place] [address] Dr. Wilkes ChangEGFR-AF LIBYAN>60Normal>=60The [facility] HospitalComment on above:Performed By: #### CMP #### [facility] [address] [place] [address] [address] Chung CarbajalGFR-NON AF GJIDRXNV73 mL/min/1.48u1Irkhwbfnjj low>=60The [facility] HospitalComment on above:Performed By: #### CMP #### [facility] [address] [place] [address] [address] Chung StrongGlobulin (S) [Mass/Vol]2.9 g/dLNormalThOhioHealth Doctors HospitalComment on above:Performed By: #### CMP #### [facility] [address] [address] [address] Chung StrongGlucose [Mass/Vol]269 mg/dLCritically atvp00-432Pst [facility] HospitalComment on above:Performed By: #### CMP #### [facility] [address] [address] [address] Chung StrongPotassium [Moles/Vol]3.4 mmol/LCritically low3.5-5.1The [facility] HospitalComment on above:Performed By: #### CMP #### [facility] [address] [place] [address] [address] Chung StrongProtein [Mass/Vol]6.7 g/dLNormal6.4-8.2[facility] Comment on above:Performed By: #### CMP #### [facility] [address] [address] [address] Chung StrongSodium [Moles/Vol]140 mmol/VToldgu920-566GbvPromedica Flower Hospital Comment on above:Performed By: #### CMP #### [facility] [address] [address] [address] Chung StrongUrea nitrogen [Mass/Vol]22.0 mg/dLCritically high7.0-18.0The [facility] HospitalComment on above:Performed By: #### CMP #### [facility] [address] [address] [address] Chung StrongUrea nitrogen/Creatinine [Mass ratio]23.7 mg/mgNormalThOhioHealth Berger Hospital HospitalComment on above:Performed By: #### CMP #### [facility] [address] [place] [address] Dr. Chung MarcialIMEon 86-66-1306QYW Coag (PPP) [Relative time]1.01 {INR} NormalThe [facility] HospitalComascension borgess-pipp hospital on above:Performed By: #### PTT, PT #### [facility] [address] [place] [address] Dr. Chung New GUIDELINESSEE BELOWBarney Children's Medical CenterComment on above:Result Comment: DESIRED INR: 2.0 - 3.0 CONDITIONS NOT LISTED BELOW 2.5 - 3.5 FOR PROSTHETIC HEART VALVE REPLACEMENT 2.5 - 3.5 RECURRENT THROMBOSIS Performed By: #### PTT, PT #### [facility] [address] [place] [address] Dr. Chung StrongPT Coag (PPP) [Time]10.9 sNormal9.0-11.6The [facility] Comment on above:Performed By: #### PTT, PT #### [facility] [address] [place] [address] Dr. Chung Mustafa 05-89-5133gFDH Coag (Bld) [Time]30.8 ySegjdt92.3-36.2The [facility] HospitalComment on above:Performed By: #### PTT, PT #### [facility] [address] [place] [address] Dr. Chung Dubose Vaginosis, NAAon 38-10-6499Ultjwvalv VaginaeLow - 0 Normal.[facility] HospitalComment on above:Order Comment: Reason for Exam Vulvar itching;Vulvar irritation;Vaginal dischargePerformed By: #### GERMAIN,NA, VAGINOSIS #### [facility] ,FWCR9Ewn - 0Normal.[facility] HospitalComment on above:Order Comment: Reason for Exam Vulvar itching;Vulvar irritation;Vaginal dischargePerformed By: #### GERMAIN,NA, VAGINOSIS #### [facility] ,MegasphaeraLow - 0Normal.[facility] HospitalComment on above: Order Comment: Reason for Exam Vulvar itching;Vulvar irritation;Vaginal dischargeResult Comment: Calculate total score by adding the 3 individual bacterial vaginosis (BV) marker scores together. Total score is interpreted as follows: Total score 0-1: Indicates the absence of BV. Total score 2: Indeterminate for BV. Additional clinical data should be evaluated to establish a diagnosis. Total score 3-6: Indicates the presence of BV. This test was developed and its performance characteristics determined by [facility]. It has not been cleared or approved by the Food and Drug Administration.Performed By: #### GERMAIN,NA, VAGINOSIS #### [facility] ,Germain Albicans+Glabrata, NAAon 62-11-8517Aygcozy Albicans, NAANegativeNormal NegativeOhiohealth O'Bleness HospitalComment on above:Order Comment: Reason for Exam Vulvar itching;Vulvar irritation;Vaginal dischargeResult Comment: This test was developed and its performance characteristics determined by [facility]. It has not been cleared or approved by the Food and Drug Administration.Performed By: #### GERMAIN,NA, VAGINOSIS #### [facility] ,[place] Glabrata, NAANegativeNormalNegativeOhiohealth O'Bleness Hospital Comment on above:Order Comment: Reason for Exam Vulvar itching;Vulvar irritation;Vaginal dischargeResult Comment: This test was developed and its performance characteristics determined by [facility]. It has not been cleared or approved by the Food and Drug Administration. Performed at: =[facility] [id number] Education Officer: Roma Hinojosa MD, Phone: [phone] PERFORMED BY: [facility] [address] [place] [address] PATHOLOGIST NON DESTRUCTIVE TESTING TECHNICIAN VARUN BELCHER M.D.Performed By: #### GERMAIN,NA, VAGINOSIS #### [facility] ,NURSING PROGon 08-40-3132Ddfmnky mass concHNO ID: [id number] Author: Natalie (Rn) SKYLER Shelton Service: General [...] Natalie Shelton RN March 01, 2019 8:19 [facility] Vital Signs Date TimeVital SignValuePerforming PeomfttyrYcrvgigd23-47-3770 09:55-0400Body umxmze310.56 Seb Hedrick MD Work Phone: [facility]10-16-2025 09:55-0400 Body mass index (BMI) [Ratio]24.3 kg/b6NdljloJared Hedrick MD Work Phone: [phone] [place], [place] [address]45710-16-2025 09:55-0400 Body .41 kgJared Hedrick MD Work Phone: [facility]10-16-2025 09:55-0400 Diastolic blood lnvxregu50 mm[Hg]Jared Hedrick MD Work Phone: [facility]10-16-2025 09:55-0400 Heart rate72 /minJared Hedrick MD Work Phone: [facility]10-16-2025 09:55-0400 Respiratory rate20 /minJared Hedrick MD Work Phone: [facility]10-16-2025 09:55-0400 SaO2% (BldA) [Mass fraction]97 %Jared Hedrick MD Work Phone: [facility]10-16-2025 09:55-0400 Systolic blood gayefysq183 mm[Hg]Jared Hedrick MD Work Phone: [facility]10-15-2025 09:12-0400 Body mass index (BMI) [Ratio]24.37 kg/m2Yuea Risaliti ATTENDANCE OFFICER Work Phone: [phone]10-15-2025 09:12-0400Body bzxudb41.41 kgGina Risaliti ATTENDANCE OFFICER Work Phone: [phone] [place], [place] 28[address]10-15-2025 09:12-0400Diastolic blood ylejolut11 mm[Hg]Blanche Risaliti ATTENDANCE OFFICER Work Phone: [phone] [place], [place] 28[address]10-15-2025 09:12-0400Heart rate94 /min Blanche Risaliti ATTENDANCE OFFICER Work Phone: [phone] [place], [place] 28[address]10-15-2025 09:12-6455MqP6% (BldA) [Mass fraction]98 %Blanche Risaliti ATTENDANCE OFFICER Work Phone: [phone] [place], [place] 28[address]10-15-2025 09:12-0400Systolic blood pbnimhfj664 mm[Hg]Blanche Risaliti ATTENDANCE OFFICER Work Phone: [phone] [place], [place] 2817404-14-2025 09:37-0400Body cdjdyf866.6 cmJose Liao ATTENDANCE OFFICER Work Phone: [phone] [place], [place] 2817404-14-2025 09:37-0400Body mass index (BMI) [Ratio]23.52 kg/j8JsvpqriJose Liao ATTENDANCE OFFICER Work Phone: [phone] [place], [place] 2817404-14-2025 09:37-0400Body lgwkos98.14 kgJose Liao ATTENDANCE OFFICER Work Phone: [phone] [place], [place] [address]Rbcraznlzx07-85-3806 09:37-0400Diastolic blood cnvhoput97 mm[Hg]Jose Liao ATTENDANCE OFFICER Work Phone: [phone] [place] [address]-14-2025 09:37-0400Heart rate75 /min Jose Liao ATTENDANCE OFFICER Work Phone: noSSM DePaul Health CenterFcjlcefkco98-60-5864 09:37-0423YwM8% (BldA) [Mass fraction]98 %Jose Liao ATTENDANCE OFFICER Work Phone: noSSM DePaul Health CenterNizekizezo40-47-5570 09:37-0400Systolic blood jdhwuzfd164 mm[Hg]Jose Liao ATTENDANCE OFFICER Work Phone: [facility] InstituteXehbglxrax96-84-3137 13:06-0400Blood Pressure LocationKMICHELINEBENA NKANSAH-AMANKRA [address]10-17-2024 13:06-0400 Diastolic blood wkeayecy46 mm[Hg]HANNAH NKANSAH-AMANKRA [address]10-17-2024 13:06-0400Heart rate62 /minKMICHELINEBENA NKANSAH-AMANKRA [address] [place], [place] 5672810-17-2024 13:06-0400 Respiratory rate16 /minKWABENA NKANSAH-AMANKRA [address] [place], [place] 5672810-17-2024 13:06-5365ZwM3% (BldA) [Mass fraction]99 %HANNAH NKANSAH-AMANKRA [address] [place], [place] 5672810-17-2024 13:06-0400 Systolic blood sirhnrcx117 mm[Hg]HANNAH NKANSAH-AMANKRA [address] [place], [place] 5672810-17-2024 12:01-0400Heart rate66 /minKWABENA NKANSAH-AMANKRA [address] [place], [place] 5672810-17-2024 12:01-8500RlK5% (BldA) [Mass fraction]99 %HANNAH NKANSAH-AMANKRA [address] [place], [place] 5672810-17-2024 12:01-0400 Diastolic blood xqnqdonr48 mm[Hg]HANNAH NKANSAH-AMANKRA [address] [place], [place] 5672810-17-2024 12:01-0400Mean blood lgvaxqjz33 mm[Hg]HANNAH NKANSAH-AMANKRA [address] [place], [place] 5672810-17-2024 12:01-0400 Systolic blood anmcomst238 mm[Hg]HANNAH NKANSAH-AMANKRA [address]10-17-2024 12:01-0400Blood Pressure LocationKWABENA NKANSAH-AMANKRA [address]10-17-2024 12:00-0400 Respiratory rate18 /minKWABENA NKANSAH-AMANKRA [address]10-17-2024 11:55-0400Blood Pressure LocationKWABENA NKANSAH-AMANKRA [address] [place], [place] 1542110-17-2024 11:55-0400Body qncuzozqits78.34 [degF]HANNAH NKANSAH-AMANKRA [address] [place], [place] 5672810-17-2024 11:55-0400 Diastolic blood dthuclhg36 mm[Hg]HANNAH NKANSAH-AMANKRA [address] [place], [place] 5672810-17-2024 11:55-0400Heart rate60 /minKWABENA NKANSAH-AMANKRA [address] [place], [place] 5672810-17-2024 11:55-0400Mean blood vxgwioty56 mm[Hg]HANNAH NKANSAH-AMANKRA [address] [place], [place] 5672810-17-2024 11:55-0400 Respiratory rate17 /minKWABENA NKANSAH-AMANKRA [address] [place], [place] 5672810-17-2024 11:55-2935VdY2% (BldA) [Mass fraction]98 %HANNAH NKANSAH-AMANKRA [address]10-17-2024 11:55-0400 Systolic blood gojlpfsr603 mm[Hg]HANNAH NKANSAH-AMANKRA [address]10-17-2024 11:40-0400Mean blood bjauzmnp18 mm[Hg]HANNAH NKANSAH-AMANKRA [address] [place], [place] 4353310-17-2024 11:40-0400 Respiratory rate11 /minKWABENA NKANSAH-AMANKRA [address] [place], [place] 4353310-17-2024 11:35-0400Mean blood icpusnxe75 mm[Hg]HANNAH NKANSAH-AMANKRA [address]10-17-2024 11:35-0400 Respiratory rate20 /minKWABENA NKANSAH-AMANKRA [address] [place], [place] 5672810-17-2024 11:26-0400Body zakeygukvtz37.34 [degF]HANNAH NKANSAH-AMANKRA [address] [place], [place] 5672810-17-2024 11:15-0400 Respiratory rate14 /minKWABENA NKANSAH-AMANKRA [address] [place], [place] 5672810-17-2024 08:49-0400Mean blood ercuvhup00 mm[Hg]HANNAH NKANSAH-AMANKRA [address]10-17-2024 08:49-0400Heart rate74 /minKWABENA NKANSAH-AMANKRA [address] [place], [place] 5672810-17-2024 08:47-0400Body rkorjvqeklb88.52 [degF]HANNAH CHACON [facility]10-17-2024 08:46-0400Mean blood eqxvbqfv860 mm[Hg]HANNAH CHACON [facility]10-14-2024 11:21-0400Body wbqaor636.56 cmOhiohealth [facility]10-14-2024 11:21-0400Body mass index (BMI) [Ratio]24.9 kg/p4AvezygwgzOhiohealth O'Bleness Hospital10-14-2024 11:21-0400Body filiabkwqdq82.4 [degF][facility]10-14-2024 11:21-0400Body .77 kgOhiohealth O'Bleness Hospital10-14-2024 11:21-0400Diastolic blood ikegewxb73 mm[Hg][facility] 08-12-2024 11:21-0400Heart rate64 /[facility] 08-12-2024 11:21-0400Respiratory rate20 /[facility] 08-12-2024 11:21-8534LdA5% (BldA) [Mass fraction]97 %[facility]10-14-2024 11:21-0400Systolic blood nqolxdej460 mm[Hg][facility]10-12-2024 10:18-0400[facility]ourly RoundingECh[facility]ic[facility]10-12-2024 10:18-0400Promise to ReturnEmSelect Medical [facility]ty [facility]10-12-2024 09:03-0400Hourly RoundingEmmaTriHealth [facility]10-12-2024 09:03-0400Promise to ReturnEmAs[facility]10-12-2024 08:49-8565VeM8% (BldA) [Mass fraction]97 %[facility]10-12-2024 08:22-0400Hourly RoundingEzo [facility]10-12-2024 08:22-0400 Promise to ReturnPinedaFairfield Medical Center10-12-2024 08:00-0400Body lzvrkiybnmc22.24 [degF][facility]10-12-2024 08:00-0400Diastolic blood dpympbkm63 mm[Hg][facility]10-12-2024 08:00-0400Heart rate78 /minEzo [facility]10-12-2024 08:00-0400Respiratory rate20 /min [facility]10-12-2024 08:00-0400Systolic blood shkofgmf804 mm[Hg][facility]10-12-2024 06:00-0400Blood Pressure LocationParkview Health [facility] 08-10-2024 06:00-0400Body dgxladnnpop28.42 [degF][facility]10-12-2024 06:00-0400Diastolic blood vojtrkto54 mm[Hg][facility]10-12-2024 06:00-0400Heart rate80 /min [facility]10-12-2024 06:00-0400Mean blood pemlazhe16 mm[Hg][facility]10-12-2024 06:00-0400Respiratory rate16 /minEzo [facility] 08-10-2024 06:00-4116OeJ5% (BldA) [Mass fraction]96 %[facility]10-12-2024 06:00-0400Systolic blood okugzckp579 mm[Hg] [facility]10-12-2024 00:45-0400Blood Pressure LocationEmjose [facility]10-12-2024 00:45-0400Body daknqxieikn94.6 [degF][facility]10-12-2024 00:45-0400Diastolic blood zlgpwioh79 mm[Hg][facility]10-12-2024 00:45-0400Heart rate84 /minEboyddavidtrinidad [facility]10-12-2024 00:45-0400Mean blood mm[Hg][facility]10-12-2024 00:45-0400Respiratory rate16 /min [facility]10-12-2024 00:45-0400Systolic blood xozznlnn335 mm[Hg][facility]10-11-2024 16:31-0400Body nkjdeskuxfg34.6 [degF][facility]10-11-2024 16:31-0400Mean blood szunnibu02 mm[Hg][facility]10-11-2024 14:25-0400Heart rate57 /Claireboyddavidtrinidad [facility]10-11-2024 14:25-0400Mean blood kiijnhuo37 mm[Hg][facility]10-11-2024 08:35-0400Heart rate85 /min [facility]10-10-2024 10:45-0400Blood Pressure LocationKLEEANNEMANFRED ANA [facility] [place] 546070-10-2024 10:45-0400Diastolic blood dfstgder74 mm[Hg]HANNAH CHACON [facility] [place] 546070-10-2024 10:45-0400Heart rate82 /minHANNAH CHACON [facility] [place] 944280-10-2024 10:45-0400Systolic blood pdnqupqi969 mm[Hg]HANNAH CHACON [facility] [place] 944280-07-2024 09:38-0400Body fonafm300.6 Seb Hedrick MD Work Phone: [facility] InstituteJdzordpzul96-93-4721 09:38-0400Body mass index (BMI) [Ratio]24.55 kg/y4RwnrysJared Hedrick MD Work Phone: [facility] InstitutePpefonshay55-95-0105 09:38-0400Body hbvmru17.86 kgJared Hedrick MD Work Phone: [facility] InstituteCqkcitcspj77-86-8420 09:38-0400Diastolic blood ajtgjgpf12 mm[Hg]Jared Hedrick MD Work Phone: [facility] InstituteSxbkjlsmbc04-63-7642 09:38-0400Heart rate88 /min Jared Hedrick MD Work Phone: [facility] InstituteVzbvpekfrl94-77-6365 09:38-7259ChL3% (BldA) [Mass fraction]97 %Jared Hedrick MD Work Phone: [facility] InstituteWnriiljkkb31-57-8720 09:38-0400Systolic blood zspkciae514 mm[Hg]Jared Hedrick MD Work Phone: [place] [address]Gdmnlsgojv17-28-6201 14:42-0400Heart rate65 /min Bacilio Mayen [facility]10-01-2024 14:42-6227EdY5% (BldA) [Mass fraction]97 %Bacilio Mayen [facility]10-01-2024 14:42-0400 Diastolic blood hszzjvyd21 mm[Hg]Bacilio Mayen [address] [place], [place] 0247610-01-2024 14:42-0400Mean blood mm[Hg]Bacilio Mayen [address] [place], [place] 0247610-01-2024 14:42-0400 Systolic blood rvrurntt886 mm[Hg]Bacilio Mayen [address] [place], [place] 0247610-01-2024 14:41-0400 Respiratory rate18 /minAlexander Faheem [address] [place], [place] 0247610-01-2024 14:03-0400Heart rate70 /minAlexander Faheem [address] [place], [place] 0247610-01-2024 14:03-2617IiM1% (BldA) [Mass fraction]96 %Bacilio Mayen [address] [place], [place] 0247610-01-2024 14:03-0400 Diastolic blood mbiuwvzb96 mm[Hg]Bacilio Mayen [address] [place], [place] 0247610-01-2024 14:03-0400Mean blood tffkymwq13 mm[Hg]Bacilio Mayen [address] [place], [place] 0247610-01-2024 14:03-0400 Systolic blood qglcxzqy669 mm[Hg]Bacilio Mayen [address] [place], [place] 0247610-01-2024 14:03-0400 Respiratory rate18 /minAlexander Faheem [address] [place], [place] 0247610-01-2024 13:52-0400Blood Pressure LocationAlexandbryant Faheem [address] [place], [place] 0247610-01-2024 13:52-0400Body .06 [degF]Bacilio Danielscker [address] [place], [place] 0247610-01-2024 13:52-0400 Diastolic blood hhlsybft24 mm[Hg]Bacilio Mayen [address] [place], [place] 0247610-01-2024 13:52-0400Heart rate68 /minAlexander Faheem [address] [place], [place] 0247610-01-2024 13:52-0400Mean blood mm[Hg]aBcilio Mayen [address] [place], [place] 0247610-01-2024 13:52-0400 Respiratory rate12 /minAlexander Faheem [address] [place], [place] 0247610-01-2024 13:52-0400 Systolic blood umxxvtas111 mm[Hg]Bacilio Mayen [address] [place], [place] 0247610-01-2024 13:38-0400Blood Pressure LocationAlexander Faheem [address] [place], [place] 0247610-01-2024 13:38-0400Mean blood egxgojti73 mm[Hg]Bacilio Mayen [address] [place], [place] 0247610-01-2024 13:38-0400 Respiratory rate12 /minAlexander Faheem [address] [place], [place] 0247610-01-2024 13:33-0400Blood Pressure LocationAlexander Faheem [address] [place], [place] 0247610-01-2024 13:33-0400Mean blood qqqjijzx40 mm[Hg]Bacilio Mayen [address] [place], [place] 0247610-01-2024 13:33-0400 Respiratory rate13 /minAlexander Faheem [address] [place], [place] 0247610-01-2024 13:23-0400Body uofocdcvkjo37.88 [degF]Bacilio Mayen [address] [place], [place] 0247610-01-2024 13:15-0400 Respiratory rate14 /minAlexander Faheem [address] [place], [place] 1480910-01-2024 11:51-0400Body icvutgkwaba45.24 [degF]Bacilio Mayen [address] [place], [place] 1480910-01-2024 11:51-0400Mean blood rzwvjshe50 mm[Hg]Bacilio Mayen [address] [place], [place] 1480910-01-2024 08:14-0400Body hbdmauamfxa90.06 [degF]Bacilio Mayen [address] [place], [place] 1480910-01-2024 08:14-0400Heart rate72 /minAlexander Faheem [address] [place], [place] 1480909-25-2024 12:15-0400Blood Pressure LocationMohamad Darieljessicali 383-3967Wupupw-Dzfeo[address] [place], [place] 3812209-25-2024 12:15-0400Diastolic blood qcetaghz20 mm[Hg]Cookieamad Mouchli 279-8607Gnotex-Arcxu[address] [place], [place] 3812209-25-2024 12:15-0400Heart ioug230 /minMohamad Mouchli 623-2284Vvnwvh-Zlumm[address] [place], [place] 3812209-25-2024 12:15-0400Respiratory rate16 /minMohamad Mouchli 472-4005Wtjxro-Juzcp[address] [place], [place] 3812209-25-2024 12:15-0400Systolic blood fqnigkok137 mm[Hg]Cookieamad Mouchli [phone]-Wtadi[address] [place], [place] 3812208-13-2024 13:28-0400Blood Pressure LocationJEJEFFERY GUANRY [facility]08-13-2024 13:28-0400Body fmzibukpuce14.24 [degF]ÁNGELA DEBBIE [facility]08-13-2024 13:28-0400Diastolic blood ixoimldr59 mm[Hg]ÁNGELA JUAREZ [facility]08-13-2024 13:28-0400Heart rate60 /minJENNIFER DEBBIE [facility]08-13-2024 13:28-0400Respiratory rate16 /minJENNIFER DEBBIE [facility]08-13-2024 13:28-0400Systolic blood zqxbfogq321 mm[Hg]ÁNGELA JUAREZ [facility]06-20-2024 09:40-0400Blood Pressure LocationMohamad Mouchli [phone]-Svnmt[address] [place], [place] 3812206-20-2024 09:40-0400Diastolic blood mm[Hg]Eulaliad Mouchli 733-1170Icgfda-Sigpq[address] [place], [place] 3812206-20-2024 09:40-0400Heart rate84 /minMohamad Mouchli 387-2279Smrmil-FmgcvOhiohealth06-20-2024 09:40-0400Respiratory rate16 /minMohamad Mouchli 275-6325Bysoci-FbcmlOhiohealth06-20-2024 09:40-0400Systolic blood gpwrdnaj296 mm[Hg]Mohamad Mouchli 118-4320Euhyuz-WztryOhiohealth04-02-2024 10:03-0400Diastolic blood ryqtxaul38 mm[Hg]Mohamad Mouchli [facility]04-02-2024 10:03-0400Heart rate65 /minMohamad Mouchli [facility]04-02-2024 10:03-0400Mean blood unwyzkoj37 mm[Hg]Mohamad Mouchli [facility]04-02-2024 10:03-0400 Respiratory rate16 /minMohamad Mouchli [address] [place], [place] 5357404-02-2024 10:03-8035LtM6% (BldA) [Mass fraction]98 %Mohamad Mouchli [address] [place], [place] 5357404-02-2024 10:03-0400 Systolic blood fmgmduxr659 mm[Hg]Mohamad Mouchli [address] [place], [place] 5357404-02-2024 09:50-0400 Diastolic blood cexcfyrr14 mm[Hg]Mohamad Mouchli [address] [place], [place] 5357404-02-2024 09:50-0400Heart rate65 /minMohamad Mouchli [facility]04-02-2024 09:50-0400Mean blood qxazdpud71 mm[Hg]Mohamad Mouchli [facility]04-02-2024 09:50-0400 Respiratory rate13 /minMohamad Mouchli [address] [place], [place] 5357404-02-2024 09:50-9761WxE2% (BldA) [Mass fraction]98 %Mohamad Mouchli [address] [place], [place] 5357404-02-2024 09:50-0400 Systolic blood hjvnufkp265 mm[Hg]Mohamad Mouchli [address] [place], [place] 5357404-02-2024 09:45-0400 Diastolic blood jwbxzsut22 mm[Hg]Mohamad Mouchli [facility]04-02-2024 09:45-0400Heart rate96 /minMohamad Mouchli [address] [place], [place] 5357404-02-2024 09:45-0400Mean blood rxwhacoh00 mm[Hg]Mohamad Mouchli [address] [place], [place] 5357404-02-2024 09:45-0400 Respiratory rate20 /minMohamad Mouchli [address] [place], [place] 5357404-02-2024 09:45-8587CeB1% (BldA) [Mass fraction]99 %Eulaliadarline Darieluchli [address]04-02-2024 09:45-0400 Systolic blood zbxkhigm570 mm[Hg]Cookieamad Mouchli [address] [place], [place] 5357404-02-2024 09:38-0400Body ohlzonbzvxy32.34 [degF]Eulaliad Mouchli [address] [place], [place] 5357404-02-2024 09:30-0400 Respiratory rate15 /minMohamad Mouchli [address] [place], [place] 5357404-02-2024 09:25-0400 Respiratory rate16 /minMohamad Mouchli [address] [place], [place] 5357404-02-2024 09:20-0400 Respiratory rate16 /minMohamad Mouchli [address] [place], [place] 5357404-02-2024 08:02-0400Blood Pressure LocationMohamad Mouchli [address] [place], [place] 5357404-02-2024 08:02-0400Body wvbrdboifiu21.16 [degF]Cookieamad Mouchli [address]03-20-2024 14:37-0400 Diastolic blood mm[Hg]Dulce Holguin 151-6314Evzhgy-LvhclOhiohealth03-20-2024 14:37-0400Mean blood xsozfscy42 mm[Hg]Dulce Holguin 440-8062Zajjmu-AcjpyOhiohealth03-20-2024 14:37-0400Systolic blood fkuyyhft459 mm[Hg]Dulce Holguin 866-1342Sniccq-XlzdxOhiohealth03-20-2024 14:28-0400Blood Pressure LocationBeth Chelsie 803-1622Pocnso-KrynmOhiohealth03-20-2024 14:28-0400Body zsenrzccybt80.34 [degF]Dulce Holguin 113-3181Kgqrqg-NdgdeOhiohealth03-20-2024 14:28-0400Diastolic blood ucrcbyzh03 mm[Hg]Dulce Holguin 862-5440Vicoyl-BfckgOhiohealth03-20-2024 14:28-0400Heart rate79 /minBeth Chelsie 978-1003Bvjrgw-CdavoOhiohealth03-20-2024 14:28-0400Systolic blood enrxlngd140 mm[Hg]Dulce Holguin 753-8031Hnebyq-KonddOhiohealth10-16-2023 11:15-0400Body bkaxos312.56 cmChrjose Villarreal Other [employer] Other 10-16-2023 11:15-0400Body mass index (BMI) [Ratio] 27.12 kg/d3Obzjcflqtjnjorge Villarreal Other [employer] Other 10-16-2023 11:15-0400Body nxmpbeiulfk43.5 [degF] Christopher Cherelle Other [employer] Other 10-16-2023 11:15-0400Body yzvhkj87.67 kgChristopher Cherelle Other [employer] Other 10-16-2023 11:15-0400Diastolic blood vzxpiapl63 mm[Hg] Christangellaer Cherelle Other [employer] Other 10-16-2023 11:15-0400Respiratory rate20 /min Christangellaer Cherelle Other [employer] Other 10-16-2023 11:15-1589IwP3% (BldA) [Mass fraction]99 % Christangellaer Cherelle Other [employer] Other 10-16-2023 11:15-0400Systolic blood mm[Hg] Christangellaer Cherelle Other [employer] Other 10-17-2022 12:30-0400Body ddurhk064.56 cmChristopher Cherelle Other [employer] Other 10-17-2022 12:30-0400Body mass index (BMI) [Ratio] 26.09 kg/g4Qmnqihvxdnb Cherelle Other [employer] Other 10-17-2022 12:30-0400Body socuinxgbku45.4 [degF] Christangellaer Cherelle Other [employer] Other 10-17-2022 12:30-0400Body nroqmt49.95 kgChristopher Cherelle Other [employer] Other 10-17-2022 12:30-0400Diastolic blood hvhkwycu12 mm[Hg] Christangellaer Cherelle Other [employer] Other 10-17-2022 12:30-0400Respiratory rate20 /min Christangellaer Cherelle Other [employer] Other 10-17-2022 12:30-2354FwM0% (BldA) [Mass fraction]97 % Christangellaer Cherelle Other [facility] [employer] Other 10-17-2022 12:30-0400Systolic blood wkxkoazj771 mm[Hg] Ferer Cherelle Other [facility] [employer] Other 07-26-2022 15:55-0400Body vkqactipest86.9 [degF]MD Jared Hedrick Work Phone: [facility]07-26-2022 15:55-0400 Diastolic blood mm[Hg]MD Jared Hedrick Work Phone: [facility]07-26-2022 15:55-0400 Heart rate66 /minMD Jared Hedrick Work Phone: [facility]07-26-2022 15:55-0400 Respiratory rate16 /minMD Jared Hedrick Work Phone: [facility]07-26-2022 15:55-0400 SaO2% (BldA) [Mass fraction]99 %MD Jared Hedrick Work Phone: [facility]07-26-2022 15:55-0400 Systolic blood igrcdkze955 mm[Hg]MD Jared Hedrick Work Phone: [facility] Encounters Encounter DateEncounter TypeCare ProviderFacilityStart: 56-01-3589uaqvvtbiua Rashida Chandcility:EU ueStart: 08-14-2025 End: 47-42-6804ewdkailictYvmoiw Hill MD Work Phone: [facility] Work Phone: Start: 08-14-2025 End: 51-86-0653Osydmyp encounter procedureBlanchard [facility] Hospitaldayo [facility] Work Phone: Start: 08-13-2025 End: 81-47-4511Pkjqlh outpatient visit 25 minutesGinbeth Dominguez ATTENDANCE OFFICER Work Phone: noms Jody Internal MedicineComment on above:Type 2 diabetes mellitus with diabetic neuropathy, without long-term current use of insulin (HCC) (Primary Dx); Essential hypertension; Mixed hyperlipidemia; Metabolic dysfunction-associated steatotic liver disease (MASLD); History of pulmonary embolism; Generalized anxiety disorder; Acquired hypothyroidism; Primary insomnia; Irritable bowel syndrome with both constipation and diarrhea; Vitamin B12 deficiency (non anemic); Vitamin D deficiency; Need for immunization against influenzaStart: 08-13-2025 End: 13-33-9393sxiintcuyaBIIRZKI POULOSNot AvailableStart: 08-11-2025 End: 73-80-9169ksklcayggbPewuxnv R WATERSFacility:EU tart: 08-11-2025 End: 25-51-5891Ijzilsg encounter procedureRashida ELDRIDGE [facility] start: 08-08-2025 End: 83-24-8978Lfdmxhoo Result EncounterMichele L Fareed ATTENDANCE OFFICER Work Phone: [facility] External Department UnsolicitedStart: 08-08-2025 End: 50-19-8869Cdifxxpa Result EncounterMichele L Fareed ATTENDANCE OFFICER Work Phone: [facility] External Department UnsolicitedStart: 08-07-2025 End: 98-58-6841Ptiplnlcf Result EncounterGeneric External Data ProviderNOMS External Department UnsolicitedStart: 08-07-2025 End: 71-84-0708Fornpyual Result EncounterGeneric External Data ProviderNOMS External Department UnsolicitedStart: 07-04-2025 End: 38-16-5201Atkmyt flowsjeniferMayuri Romero Nellie DO Work Phone: [facility] EyeStart: 07-04-2025 End: 25-27-1969Wrutpb flowsheetMayuri Romero Nellie DO Work Phone: [facility] EyeStart: 07-04-2025 End: 64-45-2548wgmsertyjjOHHUJUWL D ZAHLERNot AvailableStart: 05-05-2025 End: 64-30-3022onpsmjraarTtsywmk A. MouchliFacility:[facility] DHStart: 05-05-2025 End: 61-50-1874Kyuhfau encounter procedureAbbie Mayorga [phone]-DnkwmReg[facility] Start: 04-11-2025 End: 84-09-9886gzmffopcegZWJIEXD L POULOSNot AvailableStart: 03-10-2025 End: 06-29-3826Loaqys OnlyJose Liao ATTENDANCE OFFICER Work Phone: n[facility] External Department UnsolicitedStart: 02-10-2025 End: 30-83-8371Fhrflq outpatient visit 25 minutesMichelmartin Liao ATTENDANCE OFFICER Work Phone: [facility] SWS IMComment on above:Type 2 diabetes mellitus with diabetic neuropathy, without long-term current use of insulin (CMS/HCC) (Primary Dx); Essential hypertension (CMS/HCC); Mixed hyperlipidemia (CMS/HCC); Generalized anxiety disorder (CMS/HCC); Acquired hypothyroidism (CMS/HCC); Gastroesophageal reflux disease without esophagitis; Primary insomnia; Vitamin D deficiency; Vitamin B12 deficiency (non anemic); History of pulmonary embolism; Medicare annual wellness visit, subsequent; ACP (advance care planning); Medication management; Diarrhea, unspecified type; Breast screeningStart: 02-10-2025 End: 48-43-9805Niqyagc encounter procedureJose Jamey Fareed ATTENDANCE OFFICER Work Phone: noms HealthcareStart: 02-10-2025 End: 35-12-0166jwtezusyuxXDDZUUU L POULOSNot AvailableStart: 02-06-2025 End: 94-21-6811vdtugvfamzTqgbwr Zuleyma GaleaFacility:EU [place]Start: 02-05-2025 End: 88-06-6747Ymcwjsilp Result EncounterGeneric External Data ProviderNOMS External Department UnsolicitedStart: 02-05-2025 End: 82-38-3286Okukaeuty Result EncounterGeneric External Data ProviderNOMS External Department UnsolicitedStart: 92-13-3367viewvfdqcyFN HANNAH NKANSAH-AMANKRAFacility:EU [place]walkStart: 09-30-2024 End: 30-03-4023bdtrjqoxlyJW HANNAH NKANSAH-AMANKRAFacility:EU [place]walkStart: 09-30-2024 End: 72-67-7405Wjlrgzj encounter procedureKHEENA GARDINERANSAH-AMANKRA [facility] [place] Start: 09-23-2024 End: 34-65-2298ltcapzdyxlCY HANNAH NKANSAH-AMANKRAFacility:FTMCStart: 09-23-2024 End: 12-67-7071Lmsjsdk encounter procedureKLEEANNENA NKANSAH-AMANKRA [facility] Start: 32-38-2377jneqnvdbefNDRLWHJU E PERRYFacility:EU [place]Start: 08-20-2024 End: 18-57-1938wuracyjwmpZC HANNAH NKANSAH-AMANKRAFacility:EU [place]kyStart: 08-20-2024 End: 84-09-0213Rbdxlou encounter procedureKHEENA NKANSAH-AMANKRA [facility] Start: 08-15-2024 End: 05-13-0145Hlbsjivvx to same day surgery Viola CHACON [facility] Start: 08-15-2024 End: 56-53-5174rwrgypmpkpCBLHABSBlake CHACONFacility:FTMCStart: 08-12-2024 End: 50-30-3480rpshcxegelRikgpdsffMercy Hospital Work Phone: Start: 08-12-2024 End: 51-79-5812Sqoufel encounter procedureUnc Health [facility] Work Phone: Start: 08-09-2024 End: 48-38-5072Dzryzwoyac and management of inpatientMD Mart BarriosLuis Alberto Eubanksyasmeenjustin Facility:FTMCStart: 98-85-1329Sdlkxcucr department patient visitAstrit Abiodun Dumont Facility:FTMCStart: 08-09-2024 End: 90-11-1168Hgynbuztew and management of inpatientEmjose BarriosLuis Alberto EubanksyasmeenalbertMercy Health – [facility] Start: 08-08-2024 End: 19-20-2507Ink-admission assessmentHEENA CHACON [facility] Start: 08-08-2024 End: 86-37-8785vqnixaxnbpBJQNQOQ NKANSAH-AMANKRAFacility:EU [place]walkStart: 08-08-2024 End: 67-04-2931Umhqvem encounter procedureHANNAH CHACON [facility] [place] Start: 08-05-2024 End: 84-38-3794Dnyrmn outpatient visit 25 minutesJared Hedrick MD Work Phone: [facility] SWS IMComment on above:Type 2 diabetes mellitus with diabetic neuropathy, without long-term current use of insulin ([facility]/HCC) (Primary Dx); Essential hypertension (CMS/HCC); Generalized anxiety disorder (CMS/HCC); Acquired hypothyroidism ([facility]/HCC); Kidney stone; History of pulmonary embolism; Vitamin B12 deficiency (non anemic); Fecal impaction ([facility]/HCC); Hypokalemia; Need for immunization against influenza; Mixed hyperlipidemia ([facility]/HCC)Start: 07-31-2024 End: 99-09-9329Ssz-admission ParasMARCO ANA [facility] Start: 07-31-2024 End: 19-22-7312AzmudwMeg Dominguez NP Work Phone: [facility] External Department UnsolicitedStart: 07-30-2024 End: 55-49-2196rmcmxpvuwwGzcohqskk M. TuckerFacility:FTMCStart: 07-30-2024 Emergency department patient visitAstrrossana DaywagnerFacility:FTMCStart: 07-30-2024 End: 90-87-6116Viscgbkfvb and management of inpatientBacilio Mayen [facility] Start: 07-24-2024 End: 14-32-7792htzvgolknmLpnxknw A. MouchliFacility:[facility] DHStart: 07-24-2024 End: 95-15-4644Ilcaxpy encounter procedureAbbie Mayorga [phone]-BpayfRegency Hospital [facility] Start: 06-11-2024 End: 17-58-4203tuynxwlptbNDVLRQPU E PERRYFacility:FTMCStart: 06-11-2024 End: 51-21-2016Ndk Drop offJENNIFER E DEBBIE [facility] Start: 06-11-2024 End: 45-47-0400jhrobewhwuSRUHOKIC E PERRYFacility:EU [place]vueStart: 06-11-2024 End: 09-32-3100Sicleao encounter procedureJENNIFER E DEBBIE [facility] start: 04-18-2024 End: 78-81-1468cybmgpfqreRdikcrz A. MouchliFacility:[facility] DHStart: 04-18-2024 End: 30-65-4414Okekfav encounter procedureMoboo Mayorga 330-0059Tniqde-JynaaRegency Hospital [facility] Start: 01-30-2024 End: 26-05-7108bjwxnczelmSncruoc ALuis Alberto MouchliFacility:FTMCStart: 01-30-2024 End: 79-02-2999Toliiiz encounter procedureMoboo Vieriauchli [facility] Start: 01-17-2024 End: 24-70-0203wjxnkpcevqYypn A DayametzFacility:[facility] DHStart: 01-17-2024 End: 81-09-4739Meopuif encounter procedureBeth A Chelsie [phone]-YgoboRegency Hospital [facility] Start: 36-39-8952hbqwiszkvlVftk SteinmetzFacility:EU DodgeueStart: 57-33-3901cnizckraenUtxt SteinmetzFacility:[facility] DHStart: 09-04-2023 End: 36-15-5953rvemizfhqcTcqqtrr Tai WATERSFacility:EU BellevueStart: 09-04-2023 End: 20-53-0349Lwltelj encounter procedureParylieozzie ELDRIDGE [facility] [place] start: 08-14-2023 End: 42-14-1760uyfeilkvvoEuuhlcrgeoe Cherelle Other [employer] Other Start: 60-38-2563Lxpjwi outpatient visit 15 minutes Christopher AvenAugustus Pulmonary DiseaseStart: 70-39-7999jahobfrwmeRSXOLA GOBEZIEFacility:UNKNOWNStart: 01-10-2023 End: 16-75-6759Odkmcot encounter procedureRashida Tai ELDRIDGE [facility] Start: 12-12-2022 End: 68-85-7166avcvrgzemxAE RASHIDA CHENTE .Facility:T4Oqaef: 08-15-2022 End: 74-74-2653gqcipywtcnMvmrqfchqlk Cherelle Other [employer] Other Start: 91-99-0791Oqocbr outpatient visit 15 minutes Christopher AvendanoTASHAG Pulmonary DiseaseStart: 05-24-2022 End: 75-41-3370Ahpenvfllo Zac Hedrick Work Phone: [facility] - [facility]/P Start: 04-18-2022 End: 91-37-2188qxppstcmszJO JARED HEDRICKFacility:O1Pctam: 03-03-2022 End: 67-80-9329gdmdwaghyrSILWOBUM ZAHLERFacility:H1 Procedures DateProcedureProcedure DetailPerforming ClinicianStart: 64-29-2758Gyikzmgbyjcuy metabolic panelMichele L Fareed ATTENDANCE OFFICER Work Phone: Start: 54-30-9607Jqoea panelMichele L Fareed ATTENDANCE OFFICER Work Phone: Start: 55-14-8110XE RENAL BIGeneric External Data ProviderStart: 07-96-6271LQ ABDOMEN 1VGeneric External Data ProviderStart: 01-17-8307Crlkggcgknxr ophthalmic imaging retinaJosee Brown DO Work Phone: Start: 07-04-2025 End: 36-56-0805Qnluk medical xm&eval comprhnsv estab pt 1/>Intermediate stage nonexudative age-related macular degeneration of left eyeMayuri Brown DO Work Phone: comment on above:Intermediate stage nonexudative age- related macular degeneration of left eye (Primary Dx); Type 2 diabetes mellitus with diabetic neuropathy, without long-term current use of insulin (HCC); Bilateral posterior capsular opacification; Dry eyesStart: 71-00-9004Vbbhyann pancreatic fecal qual/semi-quanMichele L Fareed ATTENDANCE OFFICER Work Phone: Start: 69-47-0683IR ABDOMEN 1VGeneric External Data ProviderStart: 15-95-1446ViabfrapptHMDSQKZ NKANSAH-AMANKRA Start: 52-36-2027Qvqow metabolic panel calcium total Blanche R Risaliti ATTENDANCE OFFICER Work Phone: Start: 57-70-5095NMJJCBBQ STATUS REPORTGina R Risalijoo ATTENDANCE OFFICER Work Phone: Start: 36-04-4138IK Abdomen limited WO contrastKWABENA NKANSAH-AMANKRA Start: 23-54-5483IjhzsmvekfSzsghngfw Faheem Start: 33-50-4005ZggukcwcixtxjdtwkxnppxumdxDTLXETE NKANSAH-AMANKRA Start: 57-39-0580CekicgmzltyWftzysq Mouchli Start: 95-10-3925EbesydatfqfglrvzcyzdjoinkvShufdlx Mouchli Start: 97-18-1801UkcrrpinqfkQwwj Chelsie Start: 98-94-4307NzhniwcgmpVypfhaq WATERS Start: 86-78-6536Kuljnsxgxux removal of ureteric stent Rashida ELDRIDGE Start: 02-77-2183Ncojmiwdyhk insertion of ureteric stentRashida ELDRIDGE Start: 56-20-4347Vcovrdltanvzpe shockwave lithotripsy of calculus of kidneyPatrick CHENTE Start: 11-49-0358Ufnfsvlhcn and retrograde pyelography Rashida ELDRIDGE Start: 12-11-3659Kzompmolgljwmt shockwave lithotripsy of calculus of kidneyPatrick CHENTE Start: 24-96-4380Jymcwepmxbgtef shockwave lithotripsy of calculus of kidneyPatrick CHENTE Start: 56-70-5211Faakxurqzrx laser lithotripsy of ureteric calculusPatricozzie ELDRIDGE Start: 56-07-0299Ifzezjujxai removal of ureteric stent Rashida ELDRIDGE Start: 89-93-4928Mfnmkedrohd insertion of ureteric stentRashida ELDRIDGE Start: 08-96-9612Ewkpnc of musculotendinous cuff of shoulderPatricozzie ELDRIDGE Start: 71-69-5517Qjlufcaflfi laser lithotripsy of ureteric calculusPatricozzie ELDRIDGE Start: 30-81-9832Lqdktttyxgv removal of ureteric stent Rashida ELDRIDGE Start: 26-43-5710Hxtwmttymqnwyr shockwave lithotripsy of calculus of kidneyPatrick CHENTE Start: 38-85-4939Ttnwrrdmfeuskm shockwave lithotripsy of calculus of kidneyPatrick ELDRIDGE Start: 40-74-3678Lhsitxfdyyy insertion of ureteric stentPatrick ELDRIDGE Start: 44-35-6734Jrhwawdqtnwgvo shockwave lithotripsy of calculus of kidneyPatrick ELDRIDGE Start: 69-00-3685Xpaknlbvdbn insertion of ureteric stentPatrick ELDRIDGE Start: 19-00-4123Eolprkopknmzzy shockwave lithotripsy of calculus of kidneyPatrick ELDRIDGE Start: 22-60-1064Goilctdxdcm with spinal fusionPatrick ELDRIDGE appendectomyPatrick ELDRIDGE BursectomyPatrick ELDRIDGE CholecystectomyPatrick ELDRIDGE Decompression of median nervePatrick ELDRIDGE Education about postoperative care after adenotonsillectomyPatrick ELDRIDGE History of cholecystectomyS/P cholecystectomyMohamad Mouchli HysterectomyPatrick ELDRIDGE Nasal sinus procedurePatrick ELDRIDGE Operative procedure on handPatrick ELDRIDGE Repair of meniscusPatrick ELDRIDGE Plan of Treatment DateCare ActivityDetailAuthorStart: 12-56-3467Ihoemngg screeningDiabetes: Retinopathy ScreeningNOMS HealthcareStart: 02-12-2026 End: 31-09-0052Wnzerhx encounter bildvtxdw56/16/2026 9:45 AM EDT Office Visit [facility] [address] [place] [address] [facility] MedicineStart: 04-14-2026Medicare Annual Wellness (AWV)Medicare Annual Wellness (AWV)[facility] HealthcareStart: 02-04-2026 Urine screening for proteinDiabetes: Urine Protein ScreeningThe [facility] Institute Start: 11-13-2025 End: 09-48-7814Vdfezqyomk a1c with eagHemoglobin a1c with eag Lab Routine Type 2 diabetes mellitus with diabetic neuropathy, without long-term current use of insulin ([facility]) Expected: 11/13/2025, Expires: 02/11/2026[facility] Healthcare Work Phone: Comment on above:Expected: 11/13/2025, Expires: 02/11/2026Start: 18-99-5038Bonycaybza A1c measurementDiabetes: Hemoglobin A1C [facility] InstituteStart: 19-58-5663Fuucoqrq screeningDiabetes: Retinopathy ScreeningHE[facility] HealthcareStart: 08-13-2025 End: 25-77-9174Yymcsin encounter procedureNOGA [facility] IMStart: 08-12-2025 End: 09-16-0296Gjvpjvqmh (Vitamin B12) [Mass/volume] in Serum or PlasmaVitamin B12 Lab Routine Type 2 diabetes mellitus with diabetic neuropathy, without long- term current use of insulin ([facility]) Medication management Expected: 08/12/2025, Expires: 02/10/2026[facility] HealthcareComment on above:Expected: 08/12/2025, Expires: 02/10/2026Start: 08-12-2025 End: 83-56-6707Kvilwxujbkawo metabolic 2000 panel - Serum or PlasmaComprehensive metabolic panel Lab Routine Essential hypertension (CMS/HCC) Expected: 08/12/2025, Expires: 02/10/2026[facility] HealthcareComment on above:Expected: 08/12/2025, Expires: 02/10/2026Start: 08-12-2025 End: 15-13-5293Lsrpjiwxdd a1c with eagHemoglobin a1c with eag Lab Routine Type 2 diabetes mellitus with diabetic neuropathy, without long-term current use of insulin (CMS/HCC) Expected: 08/12/2025, Expires: 02/10/2026[facility] Healthcare Comment on above:Expected: 08/12/2025, Expires: 02/10/2026Start: 08-12-2025 End: 30-58-1176Jjaff 1996 panel - Serum or PlasmaLipid panel Lab Routine Mixed hyperlipidemia (CMS/HCC) Expected: 08/12/2025, Expires: 02/10/2026[facility] Work Phone: Comment on above:Expected: 08/12/2025, Expires: 02/10/2026Start: 83-15-8691Wwypr screening for proteinDiabetes: Urine Protein ScreeningHE[facility] HealthcareStart: 02-61-4207Grwzp screening for proteinDiabetes: Urine Protein ScreeningHE[facility]LEY [facility] HealthcareStart: 07-04-2025 End: 71-96-8430Tkbponf encounter hmzgnugnb89/05/2025 10:45 AM EDT Office Visit [facility] [address] [place] [address] Mayuri Brown DO [address] [place] [address] [facility]Cross[facility] EyeComment on above:ArrivedStart: 01-52-8816Svshnbycr vaccinationInfluenza Vaccine (#1)[facility] HealthcareStart: 53-08-8225Riwfxaduff A1c measurementDiabetes: Hemoglobin A1C [facility] HealthcareStart: 04-11-2025 End: 36-05-3814Gacmzxoajsnv / ancillary services zykaynwvdt71/13/2025 11:00 AM EDT Ancillary Procedure [facility] [place] [address] [place] [address] [phone] IMAGING SANDUSKYStart: 02-10-2025 End: 48-73-0248YAQ Breast - bilateral screeningBilateral screening mammogram with tomosynthesis Imaging Routine Breast screening Expected: 02/10/2025 (Approximate), Expires: 05/12/2025NOGA HealthcareComment on above:Expected: 02/10/2025 (Approximate), Expires: 05/12/2025Start: 02-10-2025 End: 05-95-1499Tgulewikcg elastase, fecalPancreatic elastase, fecal Lab Routine Diarrhea, unspecified type Expected: 02/10/2025 (Approximate), Expires: 02/10/2026[facility] HealthcareComment on above:Expected: 02/10/2025 (Approximate), Expires: 02/10/2026Start: 02-10-2025 End: 67-88-3835Faesdow encounter ubrfnkhwe18/14/2025 9:45 AM EDT Office Visit [facility] [address] [place] [address] Blanche Dominguez, ATTENDANCE OFFICER [address] [place] [address] WILFRIDOAby [facility] IMStart: 02-03-2025 End: 43-68-7936UCD W Auto Differential panel - BloodCBC and differential Lab Routine Type 2 diabetes mellitus with diabetic neuropathy, without long-term current use of insulin ([facility]) Expected: 02/03/2025, Expires: 08/05/2025[facility] InstituteComment on above:Expected: 02/03/2025, Expires: 08/05/2025Start: 02-03-2025 End: 11-62-3108Agyyspfrndnrj metabolic 2000 panel - Serum or PlasmaComprehensive metabolic panel Lab Routine Type 2 diabetes mellitus with diabetic neuropathy, without long-term current use of insulin (CMS/HCC) Essential hypertension (CMS/HCC) Expected: 02/03/2025, Expires: 08/05/2025[facility] Work Phone: Comment on above:Expected: 02/03/2025, Expires: 08/05/2025Start: 02-03-2025 End: 99-87-7668Txgrpulsri a1c with eagHemoglobin a1c with eag Lab Routine Type 2 diabetes mellitus with diabetic neuropathy, without long-term current use of insulin (CMS/HCC) Expected: 02/03/2025, Expires: 08/05/2025[facility] Comment on above:Expected: 02/03/2025, Expires: 08/05/2025Start: 02-03-2025 End: 53-93-1984Saakv 1996 panel - Serum or PlasmaLipid panel Lab Routine Mixed hyperlipidemia ([facility] [place] [place] Expected: 02/03/2025, Expires: 08/05/2025[facility] HealthcareComment on above:Expected: 02/03/2025, Expires: 08/05/2025Start: 02-03-2025 End: 66-21-0497Sfvyixozqogh/Creatinine panel in random UrineMicroalbumin / creatinine urine ratio Lab Routine Type 2 diabetes mellitus with diabetic neuropathy, without long-term current use of insulin ([facility] [place] [place] Expected: 02/03/2025, Expires: 08/05/2025NO[facility] HealthcareComment on above:Expected: 02/03/2025, Expires: 08/05/2025Start: 02-03-2025 End: 94-22-2780Nqcwihrgmmu [Units/volume] in Serum or PlasmaTSH Lab Routine Acquired hypothyroidism ([facility] [place] [place] Expected: 02/03/2025, Expires: 08/05/2025[facility] HealthcareComment on above:Expected: 02/03/2025, Expires: 08/05/2025Start: 02-03-2025 End: 14-97-2957Hlqygsssfc complete panel - UrineUrinalysis with microscopic Lab Routine Type 2 diabetes mellitus with diabetic neuropathy, without long-term current use of insulin ([facility] [place] [place] Expected: 02/03/2025, Expires: 08/05/2025[facility] HealthcareComment on above:Expected: 02/03/2025, Expires: 08/05/2025Start: 03-15-2025Medicare Annual Wellness (AWV)Medicare Annual Wellness (AWV)[facility] HealthcareStart: 61-61-9178Xpkuo screening for proteinDiabetes: Urine Protein ScreeningNOGA HealthcareStart: 30-29-0331Qzxpvkdzwd A1c measurementDiabetes: Hemoglobin P3TNWXW HealthcareStart: 08-05-2024 End: 46-05-2033Kmqmghl encounter tijpnnurz06/07/2024 9:45 AM EDT Office Visit [facility] [address] [place] [address] Jared Hedrick MD [address] [place] [address] [facility] IMStart: 73-21-7853Eqcjiztmgj A1c measurement Diabetes: Hemoglobin T0BSQSQ HealthcareStart: 21-16-6700Qtpzwhhjo vaccination Influenza Vaccine (#1)[facility] HealthcareStart: 03-07-2024Medicare Annual Wellness (AWV)Medicare Annual Wellness (AWV)[facility] HealthcareStart: 17-31-1176Mdcwtgfkufjv Vaccine: 65+ Years (3 of 3 - PCV20 or PCV21)Pneumococcal Vaccine: 65+ Years (3 of 3 - PCV20 or PCV21)[facility] HealthcareStart: 94-02-5050Uuaostwennvb Vaccine: 65+ Years (3 of 3 - PPSV23 or PCV20)Pneumococcal Vaccine: 65+ Years (3 of 3 - PPSV23 or PCV20)[facility] HealthcareStart: 50-19-6342Wilwasugzyah Vaccine: 65+ Years (3 of 3 - PPSV23, PCV20 or PCV21)Pneumococcal Vaccine: 65+ Years (3 of 3 - PPSV23, PCV20 or PCV21)[facility] Immunizations Immunization DateImmunizationNotesCare EaftniejAqnodapu28-41-7675Hyadihti trivalent influenza vaccine, adjuvanted, preservative freeGina Risaliti ATTENDANCE OFFICER Work Phone: [facility] CenterTywxqlokuy57-14-0926lqjdkqylr virus vaccine, unspecified formulationHANNAH CHACON [facility] [place] 546070-07-2024Seasonal trivalent influenza vaccine, adjuvanted, preservative Paresh Hedrick MD Work Phone: [facility] InstituteDaahsxpeom72-29-4376ahhsvfjnm virus vaccine, unspecified formulationDulce Holguin 516-9176Dedkcq-FlgkyReg[facility] Gmarqm36-15-1598 Influenza, Seasonal, Quadrivalent, AdjuvantedGina Risaliti ATTENDANCE OFFICER Work Phone: [facility] CenterWjtcosxixl81-68-9584Zfobecx SARS-CoV-2 50mcg/0.5mL BoosterGina Risaliti ATTENDANCE OFFICER Work Phone: [facility] CenterMxqodkgbqo76-07-9020LIHW-PcE-8 (COVID-19) mRNAMUL.ORD!z38200WkxksjmRashida ELDRIDGE [facility]10-13-2022influenza virus vaccine, unspecified formulationRashida ELDRIDGE [facility]10-13-2022influenza, high dose seasonal, preservative-freeGina Risaliti ATTENDANCE OFFICER Work Phone: [facility] CenterVfwwojfdvg14-37-2636kabueq vaccine recombinant Rashida ELDRIDGE [facility]10-19-2021influenza virus vaccine, unspecified formulationRashida ELDRIDGE [facility]10-19-2021influenza, high dose seasonal, preservative-freeGina Risaliti ATTENDANCE OFFICER Work Phone: noSSM [facility] CenterSdbwksubaj48-10-5106JDVD-KbT-6 (COVID-19) mRNA BNT-162b2 vaxRashida ELDRIDGE [facility] on above:Result Comment: 2022-12-12: RUD8882-12-9999lgmkdp vaccine recombinantRashida ELDRIDGE [facility]02-19-2021COVID-19 Vaccine Pfizer - Documentation Purposes Only Filemon Villarreal Other [facility] on above:Result Comment: 2022-12-12: [id number]-18 Vaccine Pfizer - Documentation Purposes OnlyKptop Cherelle Other [facility] on above:Result Comment: 2022-12-12: TBQ9465-50-2397OTTD-EiU-0 (COVID-19) mRNA BNT-162b2 vaxRashida [employer] [facility] on above:Result Comment: pt is fully vaccinated and has had a booster also but does not know the -23-6543bfzetvkhe virus vaccine, unspecified formulationCrossborders [facility]01-06-2020influenza virus vaccine, live, attenuated, for intranasal use Rashida ELDRIDGE [facility]09-12-2019influenza virus vaccine, unspecified formulationCrossborders [facility]09-12-2019Seasonal trivalent influenza vaccine, adjuvanted, preservative freeGina Risaliti ATTENDANCE OFFICER Work Phone: noSSM [facility] CenterTeehoxaozm35-80-7978mnyoruayb virus vaccine, unspecified formulationCrossborders [facility]09-13-2018Seasonal trivalent influenza vaccine, adjuvanted, preservative freeGina Risaliti ATTENDANCE OFFICER Work Phone: [facility] CenterRxnxxallyz96-12-9209ykigpjglg virus vaccine, unspecified formulationCrossborders [facility]09-20-2017influenza, high dose seasonal, preservative-freeGina Risaliti ATTENDANCE OFFICER Work Phone: [facility] CenterYtbxdzlwmq11-01-6164uiqrwggwi, injectable, quadrivalent, preservative freeGina Risaliti ATTENDANCE OFFICER Work Phone: [facility] CenterMofarkszkv47-71-5742cgzksnmiz virus vaccine, unspecified formulationPatrick ELDRIDGE [facility]09-15-2016influenza, injectable, quadrivalent, preservative freeGina Risaliti ATTENDANCE OFFICER Work Phone: [facility] Ghhasuwehn30-88-8226alygpdckclwi conjugate vaccine, 13 valentGina Risaliti ATTENDANCE OFFICER Work Phone: [facility] Gumpeitjoe39-73-8701wsbwfoqgj, high dose seasonal, preservative-freeGina Risaliti ATTENDANCE OFFICER Work Phone: [facility] Iipvmkqwpn09-65-6771qkptgh vaccine, liveGina Risaliti ATTENDANCE OFFICER Work Phone: [facility] Nmdnchwqhe78-16-0323ilnmopkoqzlz polysaccharide vaccine, 23 valentGina Risaliti ATTENDANCE OFFICER Work Phone: [facility] Payers DatePayer CategoryPayerPolicy ID2024Medicare [id number] (Managed Care)[facility] [id number] HEALTH PROVIDENCE [id number] 2021-Present [address] [place] [id number] [id number]qddwuk [id number] 2.16.840.1.264261.3.57[id number] 2.16.840.1.266534.3.57[id number] 2.16.840.1.671133.3.57[id number] 2.16.840.1.909491.3.57[id number] 2.16.840.1.669787.3.57[id number] 2.16.840.1.841833.3.57[id number] 2.16.840.1.927492.3.57[id number] 2.16.840.1.579814.3.57[id number] 2.16.840.1.155765.3.57[id number] 2.16.840.1.552530.3.57[id number] 2.16.840.1.037254.3.57[id number] 2.16.840.1.889983.3.57[id number] 2.16.840.1.480591.3.57[id number] 2.16.840.1.406232.3.579.2.04612-41-3664Uaqjybr12304659 2.16840.1.295849.3.57[id number] 2.16.840.1.019513.3.579.2.[id number] 2.16840.1.682158.3.57[id number] 2.16840.1.556682.3.579.[id number] 2.16840.1.382644.3.57[id number] 2.840.1.707889.3.57[id number] 2.16840.1.166401.3.57[id number] 2.16840.1.984441.3.57[id number] 2.16840.1.499070.3.579.2.[id number] 2.16840.1.187577.3.579.2.31[id number] 2.16840.1.676966.3.579.2.[id number] 2.16840.1.453167.3.57[id number] 2.16840.1.697449.3.57[id number] 2.16840.1.753721.3.57[id number] 2.16.840.1.092240.3.579.2.79812-58-4115Ivszmam56069282 2.16.840.1.725732.3.579.2.96372-78-3491Szaizfx45637240 2.16.840.1.627805.3.579.2.10763-13-6826Kdfsdwy46462732 2.16.840.1.607197.3.579.2.17622-46-2722Fcftosg07812710 2.16.840.1.888049.3.579.2.85030-75-4959Rldwvmx21366049 2.16.840.1.723942.3.579.2.291149-13-7865Tdqtoll42458275 2.16.840.1.085088.3.57[id number] 2.16.840.1.730461.3.579.2.145694-41-4964Nffvjwn4624617 2.16.840.1.211875.3.57[id number]-yduAdrr Pay [id number] Social History DateTypeDetailFacilityStart: 04-29-2021 End: 32-23-0715Mkouzev smoking status NHISNever smoked tobacco (finding) [facility] Campustart: 21-01-8956Aaw Assigned At BirthFeMercy Health Fairfield Hospitaltart: 04-29-2024 End: 64-90-6416Rwb Assigned At BirthCentervilletart: 40-58-4975Owmfobb smoking statusNeverExecutive Urology of [facility] BellevueStart: 64-19-7388Hhawyxl use and exposureSmokeless tobacco non-userNOMS HealthcareStart: 04-29-2024 End: 96-90-3222Ybxvdvadf beverage intakeLifetime non-drinker (finding)[facility] HealthcareStart: 04-29-2024 End: 55-08-1895Uagbasy of Social functionNOMS HealthcareStart: 85-22-1862Qqsipdh CommentCaffeine intake: coffee, tea, popNOMS HealthcareStart: 18-33-2202Xul assigned at birthNot on [facility] HealthcareSexual OrientationRegency Hospital [facility] East [facility]est[facility] Start: 76-39-7825EcmRzqtoo (finding)[facility] Medical Equipment Procedure CodeEquipment CodeEquipment Original TextEquipment IdentifierDates CYSTOSCOPY RETROGRADE STENT INSERTION HANNAH CHACON MD 07/30/24 Unknown Ureter LFDAStart: [id number], [id number]: 10-15-2022 CYSTOSCOPY RETROGRADE STENT INSERTION HANNAH CHACON MD 07/30/24 Unknown Ureter LFDAStart: 34-28-6988EGXJSPWPQB RETROGRADE STENT INSERTION HANNAH CHACON MD 07/30/24 Unknown Ureter LFDAStart: 07-30-2024 CYSTOSCOPY RETROGRADE STENT INSERTION ANA SILVER, HANNAH 07/30/24 Unknown Ureter LFDAStart: 10-28-4878PFBTGNEYCA RETROGRADE STENT INSERTION ANA SILVER, HANNAH 07/30/24 Unknown Ureter LFDAStart: 07-30-2024 CYSTOSCOPY RETROGRADE STENT INSERTION ANA SILVER, HANNAH 07/30/24 Unknown Ureter LFDAStart: 32-25-1692WLDLRXJITH RETROGRADE STENT INSERTION HANNAH CHACON MD 08/15/24 Unknown Ureter LFDAStart: 08-15-2024 CYSTOSCOPY RETROGRADE STENT INSERTION ANA SILVER, HANNAH 07/30/24 Unknown Ureter LFDAStart: 64-44-6585GEIZHWMFFP RETROGRADE STENT INSERTION ANA SILVER, HANNAH 08/15/24 Unknown Ureter LFDAStart: 08-15-2024 CYSTOSCOPY RETROGRADE STENT INSERTION ANA SILVER, HANNAH 07/30/24 Unknown Ureter LFDAStart: 54-71-3019KCDLQRZLRN RETROGRADE STENT INSERTION ANA SILVER, HANNAH 08/15/24 Unknown Ureter LFDAStart: 08-15-2024 CYSTOSCOPY RETROGRADE STENT INSERTION ANA SILVER, HANNAH 07/30/24 Unknown Ureter LFDAStart: 60-20-4580QEBHBOBBRV RETROGRADE STENT INSERTION ANA SILVER, HANNAH 08/15/24 Unknown Ureter LFDAStart: 08-15-2024 CYSTOSCOPY RETROGRADE STENT INSERTION ANA SILVER, HANNAH 07/30/24 Unknown Ureter LFDAStart: 42-82-2223BCSFABNYNA RETROGRADE STENT INSERTION ANA SILVER, HANNAH 08/15/24 Unknown Ureter LFDAStart: 08-15-2024 CYSTOSCOPY RETROGRADE STENT INSERTION ANA SILVER, HANNAH 07/30/24 Unknown Ureter LFDAStart: 64-00-9146RNOIHSMIPT RETROGRADE STENT INSERTION ANA SILVER, HANNAH 08/15/24 Unknown Ureter LFDAStart: 08-15-2024 CYSTOSCOPY RETROGRADE STENT INSERTION ANA SILVER, HANNAH 07/30/24 Unknown Ureter LFDAStart: 03-10-7317YMYKUSHFUN RETROGRADE STENT INSERTION ANA SILVER, HANNAH 08/15/24 Unknown Ureter LFDAStart: 08-15-2024 Functional Status RjqkKeyvfidydqEywzjfAkivbdcl11-14-8183Pjdxbve Health Questionnaire 2 item (PHQ- 2) [Reported][facility] Rehabilitation InstituteXzlysiokob01-27-1262Gcyzuxdvsz StatusN/AExec[facility] of [place] 546070-14-2024Functional StatusUniversity Hospitals Health System10-11-2024Functional StatusNoAdena [facility] Center 53-04-1000Kgxarjepcb StatusAdena Regional Medical Center10-10-2024Functional StatusN/A[facility] of [facility] Qsjzxiv40-01-2840 Functional StatusN/[facility]09-25-2024Functional StatusN/A [facility] Digestive Epdxup10-92-3194Qmizyunpjv StatusN/A [facility] Sfluysfd41-90-5842Usujrftfan StatusN/[facility] Digestive Fgmevx43-35-8791Lndoesmdrq Status N/[facility]03-20-2024Functional StatusN/[facility] Dig[facility] Health Clinical Notes 12-15-2020 to 08-13-2025 Note Date & JkrfEtiaQhromqam88-43-7516 History of Present illness Narrative* Blanche Dominguez, ATTENDANCE OFFICER - 08/13/2025 9:15 AM EDT Images from the original note were not included. Chelsea Curry is a 80 y.o. female presents with [...] was scheduled for an EGD at the [facility] but canceled it based on her daughter's advice due to concerns about anesthesia risks at her age. She is under the care of Dr. Ludin Lambert at [facility] for her gastrointestinal issues. Her last [...] tablet, 4 times daily PRN glucose blood (Must See [employer]Touch Verio) test strip Check blood sugar 1x [...] Wt 142 lb SpO2 98% BMI 24.37 kg/m Smoking Status Never BSA 1.71 m BP Readings from Last 3 Encounters: 08/13/25 [...] We discussed different options for help. [facility] for [facility], help in the home. [...] and Diarrhea: Chronic. - Follow up with glove brusher. - Consider referral to a specialist at the [facility] if unsatisfied with current GI care. 10. Vitamin B12 deficiency (non anemic) Stable. Continue to monitor. 11. Vitamin D deficiency Stable. Continue to monitor. 12. Need for immunization against influenza - Flu vaccine, trivalent, adjuvanted, preservative free Follow-up - Follow up in [address] Hedrick was present in the office at the time of visit today and is supervising patient care. I amfollowing Dr. Hedrick's established plan of care for the above issues. Dr Hedrick in to examine this pt today. [1] [...] ANGIOGRAM ABDOMEN 07/06/2023 CT ANGIOGRAM ABDOMEN 07/06/[address] [facility] CYSTOSTOMY 04/24/2016 [facility] DILATION AND CURETTAGE 80s EGD 2014 colonoscopy EGD 01/30/2024 with biopsy HYSTERECTOMY 1985 MARIANA/BSO LITHOTRIPSY 2012 LUMBAR FUSION 2002 MENISCECTOMY 2003 Abrasion chondroplasty (Rt Medial Meniscus tear, Chondromalacia) MENISCECTOMY Left 11/23/2016 knee lateral NOSE SURGERY OTHER SURGICAL HISTORY Lt Parotidectomy with FND 05-14-09 path Papillary cystadenoma (Lt Parotid Mass) OTHER SURGICAL HISTORY Arthrocentesis of the right hip trochanteric bursa OTHER SURGICAL HISTORY 2012 Dr. Jay [facility] arhtroplasty & CTR LT OTHER SURGICAL HISTORY [...] Hives Tramadol GI intolerance documented in this encounterThe [facility] [id number] Hospital Discharge instructions Patient Education 08/11/2025 11:27:58 24-Hour Urine Collection 24-Hour Urine Collection Why am I having this test? A 24-hour urine specimen is a lab test that requires you to collect all of your urine for an entireday. This is sometimes called a timed urine test. It can provide more information than a single urine sample. There are many reasons to have this test. Your health care provider may order the test to check foror monitor the following conditions: High blood pressure. Kidney disease. Kidney stones. Urinary tract infections. . Diabetes. How do I prepare for this test? You may be asked to follow a special diet during or before the collection period. Follow any instructions from your health care provider. If no special instructions are given, you may eat and drink normally. Take xvfp-qfk-zptynum and prescription medicines only as told by your health care provider. Let your health care provider know about any medicines that you are taking, including oucg-gwy-zdqedxc medicines, vitamins, herbs, and supplements. Choose a collection day when you can be at home or when you have a place to store the urine. All urine must be collected during the testing period. How do I do a 24-hour urine collection? When you get up in the morning, urinate in the toilet and flush. Write down the time. This will be your start time on the day of collection and your end time on the next morning. From the start time on, all of your urine should be kept in the collection jug that you received from the lab. If the jug that is given to you already has liquid in it, that is okay. Do not throw out the liquidor rinse out the jug. Urinate into a specimen container, such as a urinal or camarillo that sits over the toilet. Pour the urine from the container into the collection jug. Be careful not to spill any of the urine. Use the equipment provided by the lab. Do not let any toilet paper or stool (feces) get into the jug. This will contaminate the sample. Stop collecting your urine 24 hours after you started. Collect the last specimen as close as possible to the end of the 24-hour period. Keep the jug cool in an ice chest or keep it in the refrigerator during collection. When the 24-hour collection is complete, take the jug to the lab as soon as possible. Keep the jug cool in an ice chest while you are bringing it to the lab. What do the results mean? Talk with your health care provider about what your results mean. Questions to ask your health care provider Ask your health care provider, or the department that is doing the test: When will my results be ready? How will I get my results? What are my treatment options? What other tests do I need? What are my next steps? Summary A 24-hour urine specimen is a lab test that requires you to collect all of your urine for an entireday. When you get up in the morning, urinate in the toilet and flush. Write down the time. For the next 24 hours, collect all of your urine in the collection jug that you received from the lab. Keep the jug cool while collecting the urine and while bringing it back to the lab. Take the jug of urine back to the lab as soon as possible after the collection period has ended. This information is not intended to replace advice given to you by your health care provider. Make sure you discuss any questions you have with your health care provider. Document Revised: 04/22/2022 Document Reviewed: 04/22/2022 [employer] Patient Education 2023 Tink. 08/11/2025 11:21:33 Dietary Guidelines to Help Prevent Kidney Stones [...] include: ?8 oz (237 mL) of milk, xsvcsla-jckkyponirlf-eyccu milk, and calcium- fortifiedfruit juice. Calcium-fortified means [...] ?Spinach (cooked), rhubarb, beets, sweet potatoes, and [place] chard. ?Peanuts. ?Potato chips, mauritian fries, and baked potatoes with skin on. ?Nuts and nut products. ?Chocolate. If you regularly take a diuretic medicine, make sure to eat at least 1 or 2 servings of fruits or vegetables that are high in potassium each day. These include: ?Avocado. ?Banana. ?[place]ammett, prune, carrot, or tomato juice. ?Baked potato. [...] magnesium, fish oil, or vitamin B6. Take qbet-esj-csbhhnw and prescription medicines only as told by [...] Casseroles. Pizza. Lasagna. Frozen meals. Potato chips. Afghan fries. The items listed above may not [...] provider. Document Revised: 01/26/2023 Document Reviewed: 01/26/2023 [employer] Patient Education 2023 Tink. Follow Up Care 02/06/2025 09:31:48 With:CHENTE SILVER, Rashida Lujan, URL Address: [facility] [address], [place] [address]- When: Unknown [facility] 10-13-2025 NotePatient Education Nephrology Dietary Guidelines to Help [...] for following this plan? Reading food labels ??? Choose foods with no salt added or low-salt labels. Limit your salt (sodium) intake to lessthan 1,500 mg a day. ??? Choose foods with calcium for each meal and snack. Try to eat about 300 mg of calcium at each meal. Foods that contain 200?500 mg of calcium a serving include: ? 8 oz (237 mL) of milk, jfozqsb-uivhmqmihfpt-xawvu milk, and calcium- fortifiedfruit juice. Calcium-fortified means [...] much calcium is recommended for you. Shopping ??? Buy plenty of fresh fruits and vegetables. Most people do not need to avoid fruits and vegetables, even if these foods contain nutrients that may contribute to kidney stones. ??? When shopping for convenience foods, choose: ? Whole pieces of fruit. ? Pre-made salads with dressing on the side. ? Low-fat fruit and yogurt smoothies. ??? Avoid buying frozen meals or prepared deli foods. These can be high in sodium. ??? Look for foods with live cultures, such as yogurt and kefir. ??? Choose high-fiber grains, such as whole-wheat breads, oat bran, and wheat cereals. Cooking ??? Do not add salt to food when cooking. Place a salt shaker on the table and allow each person toadd their own salt to taste. ??? Use vegetable protein, such as beans, textured vegetable protein (TVP), or tofu, instead of meat in pasta, casseroles, and soups. Meal planning ??? Eat less salt, if told by your dietitian. To do this: ? Avoid eating processed or pre-made food. ? Avoid eating fast food. ??? Eat less animal protein, including cheese, meat, [...] size of the palm of your hand. ??? Eat at least five servings of fresh fruits and vegetables each day. To do this: ? Keep fruits and vegetables on hand for snacks. ? Eat one piece of fruit or a handful of berries with breakfast. ? Have a salad and fruit at lunch. ? Have two kinds of vegetables at dinner. ??? You may be told to limit foods that are high in a substance called oxalate. These include: ? Spinach (cooked), rhubarb, beets, sweet potatoes, and [place] chard. ? Peanuts. ? Potato chips, mauritian fries, and baked potatoes with skin on. ? Nuts and nut products. ? Chocolate. ??? If you regularly take a diuretic medicine, make sure to eat at least 1 or 2 servings of fruits or vegetables that are high in potassium each day. These include: ? Avocado. ? Banana. ? Hammett, prune, carrot, or tomato juice. ? Baked potato. ? Cabbage. ? Beans and split peas. Lifestyle ??? Drink enough fluid to keep your urine pale yellow. This is the most important thing you can do.Spread your fluid intake throughout the day. ??? If you drink alcohol: ? Limit how [...] oz glass of hard liquor (44 mL). ??? Lose weight if told by your health care provider. Work with your dietitian to find an eating plan and weight loss strategies that work best for you. General information ??? Talk to your health care provider and [...] as magnesium, fish oil, or vitamin B6. ??? Take iaqf-fzq-lrzeyas and prescription medicines only as told by your health (more content not included)...[facility]09-05-2025 NoteRight Eye Quality was good. Scan locations included subfoveal. Progression has been stable. Findings include normal observations. Left Eye Quality was good. Scan locations included subfoveal. Progression has been stable. Findings include normal observations. Notes Good scan with normal appearanceThe Rehabilitation [id number] History of Present illness Narrative* Mayuri Brown, DO - 07/04/2025 10:45 AM EDT Images from the original note [...] of Type 2 diabetes mellitus (DM) without complication,without long-term current use of insulin, Intermediate stage [...] 90 tablet 3 Blood Glucose Monitoring Suppl ([employer] Verio Flex System) w/Device kit 1 Device Daily 1 kit 0 citalopram (CeleXA) 20 MG tablet Take 1 tablet (20 mg) by mouth Daily 90 tablet 2 diphenoxylate-atropine (Lomotil) 2.5-0.025 MG tablet Take 1 tablet by mouth as needed in the morning and 1 tablet as needed at noon and 1 tablet as needed in the evening and 1 tablet as needed beforebedtime for diarrhea. glucose blood ([employer] Verio) test strip Check blood sugar 1x [...] @ 10:45 AM Additional Tests Keratometry K1 [place] K2 [place] Right 42.25 180 42.25 90 Left 42.25 [...] Normal Normal Refraction Wearing Rx Sphere Cylinder [place] Add Right -0.25 -0.25 082 +3.00 Left -0.50 -0.25 115 +3.00 Manifest Refraction Sphere Cylinder [place] Right +0.75 -0.75 123 Left -0.25 -0.25 091 Assessment/Plan Type 2 diabetes mellitus without complication, without long-term current use of insulin ([facility]/HCC) - Diabetes Mellitus without sign of diabetic retinopathy on dilated retinal examination today OU: Discussed the pathophysiology of diabetes and its effect on the eye. Stressed the importance of strong glucose control. Advised of importance of at least yearly dilated examinations, but to contact us i mmediately for any problems or concerns. Intermediate stage [...] laser capsulotomy, they are to notify their pigment mixer promptly if they have a significant change in symptoms, such as flashes of light (photopsia), an increase in floaters, loss of visual field or decrease in visual acuity. Dry eyes - Dry Eyes OU -- Environmental changes to minimize dryness and exposure and the use of artificial tears were recommended. documented in this encounterThe Rehabilitation [id number] History of Present illness Narrative* Jose Liao NP - 02/10/2025 9:45 AM EDT Images from the original [...] a living will and healthcare power of transactional attorney in place. She continues to struggle with bowel issues, experiencing incontinence approximately once a week. She also mentions a swallowing problem, which was previously addressed with a stretching procedure.She manages this by consuming liquids with her meals. She had kidney stones in the fall and saw a urologist at [facility]. FAMILY HISTORY Her son had a heart attack or stroke at the age of 55. IMMUNIZATIONS She is up to date with her pneumonia shots (Prevnar 13 and 23), shingles vaccines, and received herinfluenza vaccine last fall. I have reviewed and [...] Yes Vision Screening: Yes, patient sees regular pigment mixer/senior group manager Cognitive Screening Self Assessment: No overt cognitive deficiency is apparent by direct observation Three Word Registration: Banana, [place], Chair Clock Drawing: Normal Clock - 2 [...] bursa OTHER SURGICAL HISTORY 2013 Dr. Jay [facility] arhtroplasty & CTR LT OTHER SURGICAL HISTORY [...] Medications Medication Instructions Blood Glucose Monitoring Suppl ([employer] Verio Flex System) w/Device kit 1 Device, Does not apply, Daily citalopram (CELEXA) 10 mg, Oral, Daily diphenoxylate-atropine (Lomotil) 2.5-0.025 MG tablet 1 tablet, 4 times daily PRN glucose blood (Must See [employer] Verio) test strip Check blood sugar 1x [...] preservative free, 30 mcg/0.3 mLdose, john-sucrose formulation 08/27/2022 Zoster, Recombinant 05/27/2021, 11/01/2021 [...] neuropathy, without long-term current use of insulin ([facility]) (Primary) - Hemoglobin a1c with eag; Future - Vitamin B12; Future -well controlled. A1C improved. 2. Essential hypertension ([facility]) - Comprehensive metabolic panel; Future -well controlled 3. Mixed hyperlipidemia ([facility]) - rosuvastatin (Crestor) 10 MG tablet; Take 1 tablet (10 mg) by mouth Daily Dispense: 90 tablet; Refill: 2 -stop zocor 4. Generalized anxiety disorder ([facility]) - citalopram (CeleXA) 20 MG tablet; Take 1 tablet (20 mg) by mouth Daily Dispense: 90 tablet; Refill: 2 5. Acquired hypothyroidism ([facility]) -TSH WNL 6. Gastroesophageal reflux disease without [...] patient today by Jose Liao NP. Demographics updated.The past medical history, family history, and social history reviewed and updated. The medication list (including supplements) has been reconciled. -A list of other providers involved with the patient's care and any durable medical goods providers documented. -Depression screening was completed andaddressed as indicated. Cognitive function was assessed by direct observation and assessment of ability to perform ADLs and iADLs was done. As well as Mini-Cog assessment. -We reviewed, and discussedas indicated, safety issues, including falls risk assessment. -Time was spent reviewing and discussi ng age-appropriate screenings, immunizations and indicated laboratory monitoring. [...] the fall and saw a urologist at [facility]. PROCEDURE Colonoscopy in spring 2023 did not find any polyps. -Dr. Hedrick was present in office suite today and is supervising patient care and available for consult. I'm following his plan of care for the above problems. Previous notes and plan were reviewed andfollowed. documented in this encounterThe Rehabilitation [id number] NotePatient Education Urology Kidney Stones Kidney stones are [...] these instructions at home: Medicines ??? Take crwn-fes-cxpmnkq and prescription medicines only as told by [...] provider. Document Revised: 06/09/2023 Document Reviewed: 06/09/2023 [employer] Patient Education ? 2023 Tink.[facility] 09-30-2024 Hospital Discharge instructions Patient Education 09/30/2024 10:10:51 Urinary Incontinence Urinary Incontinence Urinary incontinence refers to a condition in which a person is unable to control where and when topass urine. A person with this condition will urinate involuntarily. This means that the person urinates when he or she does not mean to. What are the causes? This condition may be caused by: Medicines. Infections. Constipation. Overactive bladder muscles. Weak bladder muscles. Weak pelvic floor muscles. These muscles provide support for the bladder, intestine, and, in women,the uterus. Enlarged prostate in men. The prostate [...] a small amount, or constantly dribbling urine (overflowincontinence). Urinating because you cannot get to the [...] fiber include beans, whole grains, and fresh fruitsand vegetables. Behavioral changes, such as: ?Pelvic floor [...] (electrical nerve stimulation). ?For women, using a medical record clerk to prevent urine leaks. This is a small, tampon-like, disposabledevice that is inserted into the urethra. ?Injecting [...] right after experiencing incontinence. General instructions Take uxkh-gol-mehfpga and prescription medicines only as told by [...] important. Where to find more information National [place] of Diabetes and Digestive and Kidney Diseases: www.niddk.nih.gov [place] [employer]: www.urologyhealth.org Contact a health care [...] is unable to control where and when topass urine. This condition may be caused by medicines, infection, weak bladder muscles, weak pelvic floor muscles, enlargement of the prostate (in men), or surgery. Factors such as older age, obesity, and childbirth, menopause, neurological diseases, andchronic coughing may increase your risk for developing [...] provider. Document Revised: 05/21/2021 Document Reviewed: 05/21/2021 [employer] Patient Education 2023 Tink. Follow Up Care 08/20/2024 12:50:13 With:HANNAH CHACON MD, URL Address: When: Unknown [facility] 12-02-2024 NotePatient Education Urology Urinary Incontinence Urinary incontinence refers to a condition in which a person is unable to control where and when topass urine. A person with this condition will [...] move out of place and into the vagina.This movement can prevent the bladder and urethra [...] the bladder, urethra, and sphincter can store andrelease urine. There are different types of urodynamic [...] of moderate-intensity exercise every week. Ask your healthcare provider which activities are safe for you. [...] urges. This can include distraction techniques or controlledbreathing exercises. ??? Medicines, such as: ? Medicines to relax the bladder muscles and prevent bladder spasms. ? Medicines to help slow or prevent the growth of a man's prostate. ? Botox injections. These can help relax the bladder muscles. ??? Treatments, such as: ? Using pulses of electricity to help change bladder reflexes (electrical nerve stimulation). ? For women, using a medical record clerk to prevent urine leaks. This is a [...] your health care provider (more content not included)...[facility] 08-16-2024 NoteMicrobiology PROCEDURE: Blood Culture Charcoal [R1] SOURCE: Blood BODY SITE: Hand L COLLECTED DATE/TIME: 08/09/2024 13:28 EDT RECEIVED DATE/TIME: 08/09/2024 14:35 EDT START DATE/TIME: 08/09/2024 14:35 EDT FREE TEXT SOURCE: JYOTHI PINO-DARLING, Tabatha PINO-BC, Tabatha FINAL REPORTS Final Report [] Verified Date/Time: 08/16/2024 15:00 EDT No growth at 7 days. Performing Locations R1: [facility] performed at[facility], [address] [place] [address], [address] [place] [address], YszwqkPromedica Defiance Regional HospitalComment on above:Performed By: #### [id number] #### [facility] [address] [place] [address] [id number] NoteMicrobiology PROCEDURE: Blood Culture Charcoal [R1] SOURCE: Blood BODY SITE: Arm L COLLECTED DATE/TIME: 08/09/2024 13:16 EDT RECEIVED DATE/TIME: 08/09/2024 14:35 EDT START DATE/TIME: 08/09/2024 14:35 EDT FREE TEXT SOURCE: lt oren POWERSP-BC, Tabatha POWERSP-BC, Tabatha FINAL REPORTS Final Report [] Verified Date/Time: 08/16/2024 15:00 EDT No growth at 7 days. Performing Locations R1: This [facility] was performed at: [facility], [address] [place] [address], [id number] [place] [address], YdspkkPromedica Defiance Regional HospitalComment on above:Performed By: #### [id number] #### [facility] [address] [place], [place] [id number] Hospital Discharge instructions Patient Education 08/15/2024 11:42:30 Kidney Stones STENT REMOVAL INSTRUCTIONS Due to your recent procedure, your urologist may have placed a ureteric stent in your ureter (tube from kidney to bladder). A ureteric stent or JJ stent is a specifically designed hollow tube made offlexible plastic about 25-30 cm long. It is [...] Up Care 08/08/2024 11:47:34 With:HANNAH CHACON Address: [address] [place] [phone] Business (1) When: Unknown Comments:Call for followup appointment [facility] 10-17-2024 NotePatient Education - Text Urology STENT REMOVAL INSTRUCTIONS Due to your recent procedure, your urologist may have placed a ureteric stent in your ureter (tube from kidney to bladder). A ureteric stent or JJ stent is a specifically designed hollow tube made offlexible plastic about 25-30 cm long. It is [...] to have the stent removed by a nurse.??[facility]10-13-2024 NoteHistory and Physical Basic Information Admit Date/Time:08/09/2024 13:45 [...] of PE (xarelto) -Pt. presents to ED 2/ b/l flank pain w/ known renal stones -Pt. states she was seen by Dr. Eldridge on 08/08/24 and set up for lithotripsy next howeversince that time she has developed right-sided flank and RLQ abd. pain late last night and ongoing this a.m. Patient states it is associated with nausea, nonbloody emesis, unable to keep food down, endorses chills but denies fever, cough, urine production, known COVID exposure, chest pain, pressure,palpitations, diarrhea. Patient was evaluated in the ED, [...] Lymph Auto: 6.6 % Low (08/09/24 08:43:00) [place] Auto: 3.8 % Low (08/09/24 08:43:00) Eos Auto: 0.1 % (08/09/24 08:43:00) Basophil Auto: 0.7 % (08/09/24 08:43:00) Neutro Absolute: 8.5 E9/L High (08/09/24 08:43:00) Lymph Absolute: 0.6 E9/L Low (08/09/24 08:43:00) [place] Absolute: 0.4 E9/L (08/09/24 08:43:00) Eos Absolute: [...] WBC: 16-25 Abnormal (08/09/24 (more content not included)...[facility] HospitalComment on above:Result Comment: Electronically Signed By: Tabatha MCCOY\.br\Date and Time Signed: 08/09/24 14:10 EDT\.br\Electronically Co-Signed By: Tabatha MCCOY\.br\Date and Time Co-Signed: 08/09/24 18:35 EDT\.br\Electronically Co-Signed By: Tabatha MCCOY\.br\Date and Time Co-Signed: 08/10/24 09:49 EDT\.br\Electronically Co-Signed By: Mart Luna MD.br\Date and Time Co-Signed: 08/11/24 15:51 [id number] Note Discharge Summary Admission and Discharge Information Admit Date/Time:08/09/2024 13:45 Admitting Physician - Cheryl SILVER, Mart Canales Consulting Physician - PRINCESS SILVER, Juan Alberto De Jesus Admitting Diagnoses: Discharge Order Date Discharge Patient [...] (12/16/2009), Cystoscopic laser lithotripsy of ureteric calculus (08/18 09), Cystoscopic removal of ureteric stent (07/30/2009), Cystoscopic [...] calculus at the right UVJ, left ureteral stentwith possible sm. calculus adjacent to the distal [...] and she is aware to follow any pre- procedure instructions shewas provided regarding holding medications. 2. Hydronephrosis with [...] be reviewed and discussed with PCP or aboriginal ceremonial celebrant MD once the hospital paper guillotine operator is able to reach him/her. I spent a lengthy amount of time with the patient and/or family (teach back m (more content not included)... [facility] HospitalComment on above:Result Comment: Electronically Signed By: Tabatha MCCOY\.br\Date and Time Signed: 08/10/24 10:03 EDT\.br\Electronically Co-Signed By: Cheryl SILVER, Mart Canales\.br\Date and Time Co-Signed: 08/11/24 15:51 [id number] Hospital Discharge instructions Patient Education 08/10/2024 09:34:54 Renal Colic, Oeyu-rt-Rsqw Renal Colic Renal colic is pain that is caused by a kidney stone. The pain can be sharp and very bad. It may befelt in your back, belly, side, or groin. It can cause nausea. Renal colic can come and go. Follow these instructions at home: Medicines Take yhni-beo-xorroov and prescription medicines only as told by [...] provider. Document Revised: 07/12/2023 Document Reviewed: 07/12/2023 [employer] Patient Education 2023 [employer] Follow Up Care 08/09/2024 08:29:26 With:Rashida ELDRIDGE Address: [address] [place] [address]- Business (1) When: Unknown Comments:Keep scheduled appointment for outpt. procedure With:JARED HEDRICK Address: [address] [facility] [address] [place] [address]- Business (1) When:2 to 4 days With:Bob De Jesus Address: [address] [place], [place] [address] [place] [phone] Business (1) When: Unknown [facility] 10-12-2024 NotePatient Education - Text Urology Renal Colic Renal colic is pain that is caused by a kidney stone. The pain can be sharp and very bad. It may befelt in your back, belly, side, or groin. It can cause nausea. Renal colic can come and go. Follow these instructions at home: Medicines ? Take pffy-qpl-fdhppln and prescription medicines only as told by [...] provider. Document Revised: 07/12/2023 Document Reviewed: 07/12/2023 [employer] Patient Education ? 2023 Tink. tamsulosin (nevarez aylin MEREDITH sin) Flomax What [...] changes. Stop using tamsu (more content not included)...[facility] 08-09-2024 NoteConsultation Note Patient: CHELSEA CURRY Age: 79 years Sex: Female : 1945 Associated Diagnoses: None Author: Juan Alberto SMITH MD Chief Complaint 08/09/2024 14:33 EDT abdominal pain, kidney stone 08/09/2024 8:30 EDT patient presents with RLQ abdominal pain that started yesterday with nausea andvomiting. dx with kidney stone on L side- saw urology yesterday. hematuria and dysuria since dx 08/08/2024 10:45 EDT f/u cysto & stent placement This is an 79-year-old female, patient of Dr. Eldridge who is actually on the schedule for left-sidedlithotripsy. She is status post cystoscopy and left double-J stent. She actually saw him yesterday in the office. Unfortunately she then developed bilateral flank pain and presented to the ER where she is found to have a right distal ureteral calculus at this point causing right-sided hydronephrosis. The left-sided stent is in good position. She is admitted with urologic consultation for possibleintervention. She denies fevers or chills. The entire past medical history, past surgical history, system review, family history, social history, medications, and allergies are as noted in the admission history and physical performed by Divina earlier today and is unchanged. Health Status [...] list: All Problems Osteoarthritis / SNOMED CT 3047051027 / Confirmed Diabetes / SNOMED CT 324429483 / Confirmed Hypertension / SNOMED CT 7088007627 / Confirmed Hypothyroidism / SNOMED CT 72867038 / Confirmed Kidney stones / SNOMED CT 273190837 / Confirmed Pyelonephritis / SNOMED CT 18279059 / Confirmed Hyperlipidemia / SNOMED CT 93068785 / Confirmed Other urethral stricture, female / SNOMED CT 641965553 / Confirmed Chronic cystitis / SNOMED CT 45721360 / Confirmed Nocturia / SNOMED CT 959781077 / Confirmed Urinary urgency / SNOMED CT 632688371 / Confirmed Urinary incontinence without sensory awareness / SNOMED CT 6788435709 / Confirmed Urinary frequency / SNOMED CT 671281239 / Confirmed Mixed stress and urge incontinence / SNOMED CT 44541087 / Confirmed Urinary hesitancy / SNOMED CT 999685187 / Confirmed Renal cyst / SNOMED CT 2147483077 / Confirmed Glucosuria / SNOMED CT 40445894 / Confirmed Anticoagulated / SNOMED CT 801739972 / Confirmed UTI (urinary tract infection) / SNOMED CT 730999867 / Confirmed Mixed incontinence / SNOMED CT 33560293 / Confirmed Urinary incontinence / SNOMED CT 8077650756 / Confirmed Chronic diarrhea / SNOMED CT 879013419 / Confirmed History of colon polyps / SNOMED CT 6563025479 / Confirmed Unintentional weight loss / SNOMED CT 1375961951 / Confirmed Mejia's esophagus / SNOMED CT 894776386 / Confirmed Fecal incontinence / SNOMED CT 189517911 / Confirmed Schatzki's ring / SNOMED CT 795178682 / Confirmed Acid reflux / SNOMED CT 387395879 / Confirmed Dysphagia / SNOMED CT 65105517 / Confirmed Abdominal cramping / SNOMED CT 404537159 / Confirmed S/P cholecystect (more content not included)...[facility] Comment on above:Result Comment: Electronically Signed By: Juan Alberto SMITH MD\.br\Date and Time Signed: 08/09/24 19:11 [id number] Evaluation + Plan note Extracted from:Title:Urology Consult and H&P 2Author:Juan Alberto SMITH MD PDate: 08/09/24 Impression and Plan Diagnosis Complaint of Abdominal pain (PNED [id number], Reason For Visit, Nursing). Hydronephrosis with renal calculous obstruction ([id number]-GC N13.2, Discharge, Medical). Kidney stones ([id number]-[id number] N20.0, Working, Medical). Course: Worsening, Reviewed CT scan, current, as well as old CT scan. Reviewed labs Reviewed urinalysis Discussed extensively with the patient. Unfortunately she has now developed a right distal ureteralcalculus measuring 5 mm in size. She was given the option of conservative management versus operative intervention and she is choosing the latter. She would like to rid herself of the right distal stone with the possibility of ureteroscopy and holmium laser ablation and basket extraction. She knowsthat a right ureteral stent may be indicated [...] extraction of this right distal stone.. Extracted from:Title:ED NoteAuthor:Salvador Peraza PA-CDate:08/09/24 1. Kidney stones (N20.0: Ben culus of kidney) 2. Abdominal pain (R10.9: Unspecified abdominal pain) 3. Nausea & vomiting (R11.2: Nausea with vomiting, unspecified) 4. UTI (urinary tract infection) (N39.0: Urinary tract infection, site not specified) Orders: ceftriaxone + Sodium Chloride 0.9% intravenous solution 50 mL, 1,000 mg = 1 EA, IV Piggyback, Once,Stop date 08/09/24 12:21:00 EDT, STAT, Start date [...] mL, Soln-IV, IV, Once, Stop date 08/09/24 12:21:00EDT, STAT, Start date 08/09/24 12:21:00 EDT, Infuse over 61, minute(s) Basic Metabolic Panel Bladder Scan CBC w/ Auto Diff CT Abdomen/Pelvis w/o Contrast ED Physician consult Hospitalist for continued care eGFR Extra Blue Tube Extra SST Tube Hepatic Function Panel Lipase Level NPO Diet Post Void Residual UA with Cult Rflx Urine Culture Urine Strain Future Appointments Appointment Date:08/15/2024 08:30:00 AM Scheduled Provider: Location:[facility] Appointment Type:Surgery FT Appointment Date:09/10/2024 02:40:00 PM Scheduled Provider:ÁNGELA JUAREZ PA-C Location:[facility] Appointment Type:URO Office Visit Diagnostic Tests Pending * Calculi Analysis Urinary 08/10/24 Future Scheduled Tests Laboratory* Fecal WBC Lactoferrin 01/17/24 * Giardia lamblia, Direct Detection EIA 01/17/24 * O & P Exam, Routine 01/17/24 * Clostridium Difficile PCR 01/17/24 * Enteric Panel by PCR 01/17/24 [facility] 10-10-2024 Hospital Discharge instructions Patient Education 08/08/2024 [...] include: ?8 oz (237 mL) of milk, gbieqfb-vqgpnbruscxx-fhhuf milk, and calcium- fortifiedfruit juice. Calcium-fortified means [...] ?Spinach (cooked), rhubarb, beets, sweet potatoes, and [place] chard. ?Peanuts. ?Potato chips, mauritian fries, and baked potatoes with skin on. ?Nuts and nut products. ?Chocolate. If you regularly take a diuretic medicine, make sure to eat at least 1 or 2 servings of fruits or vegetables that are high in potassium each day. These include: ?Avocado. ?Banana. ?Hammett, prune, carrot, or tomato juice. ?Baked potato. [...] magnesium, fish oil, or vitamin B6. Take sdki-hfv-emdvclb and prescription medicines only as told by [...] Casseroles. Pizza. Lasagna. Frozen meals. Potato chips. Afghan fries. The items listed above may not [...] provider. Document Revised: 01/26/2023 Document Reviewed: 01/26/2023 [employer]Pro[employer] Patient Education 2023 Tink. Follow Up Care 07/31/2024 14:56:54 With:HANNAH CHACON MD, URL Address: When: Unknown [facility] 10-10-2024 NotePatient Education Nephrology Dietary [...] ? 8 oz (237 mL) of milk, bmoklpu-wxmzaspbkynn-ymfbc milk, and calcium- fortifiedfruit juice. Calcium-fortified means [...] Spinach (cooked), rhubarb, beets, sweet potatoes, and [place] chard. ? Peanuts. ? Potato chips, mauritian fries, and baked potatoes with skin on. ? Nuts and nut products. ? Chocolate. ? If you regularly take a diuretic medicine, make sure to eat at least 1 or 2 servings of fruits orvegetables that are high in potassium each day. These include: ? Avocado. ? Banana. ? Hammett, prune, carrot, or tomato juice. ? Baked [...] fish oil, or vitamin B6. ? Take dmgb-gjs-zghxhfx and prescription medicines only as told by your health care provider. Theseinclude suppleme (more content not included)...[facility]10-07-2024 History of Present illness Narrative* Jared Hedrick MD - 08/05/2024 9:45 AM EDT Images from the original note were not included. Chelsea Curry is a 79 y.o. female presents with chief complaint of 3 Month Follow Up HPI: Review lab drawn 07/31/2024. HbA1c = 7.3 Patient has a stent placement for a left 7mm kidney stone. She went to ER 07/30/2024 at [facility]. She is uncomfortable and has heavy [...] stone. She went to ER 07/30/2024 at [facility]. She is uncomfortable and has heavy bleeding [...] doing for a couple of weeks. A glove brusher in [place] suggested trying this regimen for two weeks [...] due to underlying condition with diabetic polyneuropathy ([facility]/HCC) Diastolic dysfunction Hypothyroidism (CMS/HCC) IBS (irritable bowel [...] bursa OTHER SURGICAL HISTORY 2012 Dr. Jay [facility] arhtroplasty & CTR LT OTHER SURGICAL HISTORY Left 04/20/2015 [facility] OTHER SURGICAL HISTORY L4 & L5 fusion RENAL ARTERY STENT Right 2011 ROTATOR CUFF REPAIR Right 2007 ROTATOR CUFF REPAIR Left 2014 SALIVARY GLAND [...] Medications Medication Instructions Blood Glucose Monitoring Suppl ([employer] Verio Flex System) w/Device kit cholecalciferol 125 MCG [...] without long-term current use of insulin (CMS/HCC) Her A1c is 7.3, which is stable [...] - Urinalysis with microscopic 2. Essential hypertension (CMS/HCC) Blood pressure doing well. Continue lifestyle modifications to include minimizing salt and alcohol,exercising regularly, and keeping weight down. Continue current medications. - Comprehensive metabolic panel; Future - Comprehensive metabolic panel - hydroCHLOROthiazide (HYDRODiuril) 25 MG tablet; Take 1 tablet (25 mg) by mouth Daily Dispense: 90tablet; Refill: 3 3. Generalized anxiety disorder (CMS/HCC) Doing well. Continue current regimen. 4. Acquired hypothyroidism (CMS/HCC) Doing well. Continue current regimen. - TSH; [...] Future - Lipid panel documented in this encounterThe Rehabilitation [id number] NoteProgress Note-Physician When went to [facility] to see pt for admission, pt had already been discharged by urology following procedure with follow up appt. Therefore pt was admitted/[facility]rology[facility] HospitalComment on above:Result Comment: Electronically Signed By: Lizbeth COOMBS\.br\Date and Time Signed: 07/30/24 16:35 EDT\.br\Electronically Co-Signed By: Bacilio Mayen DO.br\Date and Time Co-Signed:07/31/24 09:32 [id number] Hospital Discharge instructions Patient Education 07/30/2024 13:58:06 Eacn-Inkm-wr Utereroscopy,Lithotripsy, Stone Extraction, Stent Placement (CUSTOM) [facility] [place], [place] Dr. Juan Alberto Moe Post-operative Instructions [...] other reasons. If it is to remain [place] [facility], however, changes of the stent are required [...] arrange for your post-operative appointment (with XRAY) [phone] 07/30/2024 13:57:20 Post Op Patient Instructions - FT (CUSTOM) 07/30/2024 13:35:26 Kidney Stones, Spdm-ks-Jsnq Kidney Stones Kidney stones are rock-like masses [...] Follow these instructions at home: Medicines Take ymly-hkb-nudyylp and prescription medicines only as told by [...] provider. Document Revised: 06/09/2023 Document Reviewed: 06/09/2023 GoChongo Patient Education 2023 Tink. Follow Up Care 07/30/2024 08:12:34 With:HANNAH CHACON Address: [address] [place] [address]- [phone] Business (1) When: Unknown Comments:Call for followup appointment [facility] 10-01-2024 NoteProgress Note-Physician Patient: CHELSEA CURRY Age: 79 years Sex: Female : 1945 Associated Diagnoses: None Author: Jaron Brandon MD Postoperative Information Postoperative disposition: Postoperative disposition: To PACU. Optimetrix number: Optimetrix number [id number]. Anesthetic utilized: General. Health Status Allergies: Allergic [...] Discharge when meets criteria ( To home ).[facility] on above:Result Comment: Electronically Signed By: Jaron Brandon MD\.br\Date and Time Signed: 07/30/24 15:13 EDT 07-30-2024 NoteProgress Note-Physician Patient: CHELSEA CURRY Age: 79 [...] Daily, # 28 cap(s), Refills(s) 4, [id number] 162, cm, 04/18/24 9:43:00 EDT, Height/Length Dosing, 66, kg, 04/18/24 9:43:00 EDT, Weight Dosing Linzess 145 mcg oral capsule: 145 mcg = 1 cap(s), Oral, Daily, # 30 cap(s), Refills(s) 4, [id number], 165, cm, 07/24/24 12:20:00 EDT, Height/Length Dosing, 64, kg, 07/24/24 12:20:00EDT, Weight Dosing Pantoprazole [address] Tab: 40 mg = 1 tab(s), Oral, Daily, X 90 day(s), # 90 tab(s), Refills(s) 2, Pharmacy: [facility], 162.5, cm, 01/17/24 14:37:00 EDT, Height/Length Dosing, 67, kg, 01/17/24 14:37:00 EDT, Weight Dosing clobetasol propionate 0.05% top oint: See Instructions, 30 gm, Refill(s) 2, Apply to affected area every 12 hours as needed for pain/discomfort., [id number], 165, cm, 12/12/22 13:46:00 EST,Height/Length Dosing, 70.4, kg, 12/12/22 13:46:00 EST, Weight Dosing trospium 20 mg oral tablet: 20 mg = 1 tab(s), Oral, Daily, take in morning on an empty stomach, X 30 day(s), # 30 tab(s), Refills(s) 11, Pharmacy: [facility]/pharmacy #[id number], 165, cm, 06/11/24 13:43:00 EDT, Height/Length [...] Daily simvastatin See Instructio (more content not included)...[facility] Hospital[facility] on above:Result Comment: Electronically Signed By: Jaron Brandon MD\.br\Date and Time Signed: 07/30/24 15:12 [id number] Evaluation + Plan note Extracted from:Title:ANES Post-operative Note---GeneralAuthor:Jaron Brandon MD Date:07/30/24 Plan Transfer/Discharge: Transfer/Discharge Discharge when meets criteria ( To home ). Extracted from:Title:ANES Pre-operative Note uthor:Jaron Brandon MDDate: 07/30/24 Plan [place] [employer] Anesthesiologists (ASA) physical status classification: Class III. Anesthetic Preoperative Plan: Anesthesia General, and ETT/RSI. Extracted from:Title:Kidney Stone Admission H&P *Author:ANA SILVER, GUILLERMONADate:07/30/24 Impression and Plan #1. Left-sided flank pain CT abdomen pelvis shows a 7 mm proximal ureteral stone, patient's pain is not relieved despite multiple pain medications. Thus, we will proceed to the OR for cystoscopy, left retrograde pyelogram, left ureteral stent placement. Consent will be obtained at the bedside. Extracted from:Title:ED NoteAuthor:Johnathan HERNANDEZ, JansenDate:07/30/24 1. Ureterolithiasis (N20.1: Calculus of ureter) Orders: ceftriaxone + Sodium Chloride 0.9% intravenous solution 50 mL, 1,000 mg = 1 EA, IV Piggyback, Once,Stop date 07/30/24 10:17:00 EDT, STAT, Start date 07/30/24 10:17:00 EDT, 100 mL/hr, Infuse over 30 minute(s), 07/30/24 10:17:00 EDT morphine, 2 mg = 1 mL, Injection, IV Push, Once, Stop date 07/30/24 8:19:00 EDT, STAT, Start date 07/30/24 8:19:00 EDT, 10/01/24 8:19:00 EDT morphine, 2 mg = 1 [...] Date:09/10/2024 02:40:00 PM Scheduled Provider:ÁNGELA JUAREZ PA-C Location:[facility] Appointment Type:URO Office Visit Diagnostic Tests Pending * Urine Culture 07/30/24 Future Scheduled Tests Laboratory* Fecal WBC Lactoferrin 01/17/24 * Giardia lamblia, Direct Detection EIA 01/17/24 * O & P Exam, Routine 01/17/24 * Clostridium Difficile PCR 01/17/24 * Enteric Panel by PCR 01/17/24 [facility] 10-01-2024 NotePatient Education - Text [facility] [place], [place] Dr. Juan Alberto Moe Post-operative Instructions [...] other reasons. If [place] [facility] [place] [facility], however, changes of the stent are required [...] other blood thinners until your office visit (weclemenciall discuss when to resume these medications) ? [...] arrange for your post-operative appointment (with XRAY) [phone] Urology Kidney Stones Kidney stones are rock-like [...] break up kidney s (more content not included)...[facility]10-01-2024 NoteConsultation Note Patient: CHELSEA CURRY Age: 79 years Sex: Female : 1945 Associated Diagnoses: None Author: HANNAH CHACON MD Basic Information Source of history: Self. Referral [...] All Problems Abdominal tenderness / SNOMED CT 66462448 / Confirmed Mejia's esophagus / SNOMED CT 144630807 / Confirmed Chronic cystitis / SNOMED CT 98480836 / Confirmed Chronic diarrhea / SNOMED CT 707221655 / Confirmed Constipation by outlet dysfunction / SNOMED CT 41187758 / Confirmed Renal cyst / SNOMED CT 0900351964 / Confirmed Urinary hesitancy / SNOMED CT 689351945 / Confirmed Diabetes / SNOMED CT 598826512 / Confirmed Anticoagulated / SNOMED CT 071462271 / Confirmed Dysphagia / SNOMED CT 99012002 / Confirmed Abdominal cramping / SNOMED CT 527496119 / Confirmed Gross hematuria / SNOMED CT 536362867 / Confirmed Acid reflux / SNOMED CT 395415379 / Confirmed Glucosuria / SNOMED CT 13025214 / Confirmed H/O blood clots / SNOMED CT 638750302 / Confirmed S/P cholecystectomy / SNOMED CT 3722213752 / Confirmed History of colon polyps / SNOMED CT 7007620908 / Confirmed Hyperlipidemia / SNOMED CT 14033481 / Confirmed Hypertension / SNOMED CT 6576278232 / Confirmed Hypothyroidism / SNOMED CT 53440330 / Confirmed Mixed stress and urge incontinence / SNOMED CT 81004707 / Confirmed Mixed incontinence / SNOMED CT 39168066 / Confirmed Fecal incontinence / SNOMED CT 640103440 / Confirmed Stool incontinence / SNOMED CT 730474321 / Confirmed Urinary incontinence without sensory awareness / SNOMED CT 1421838750 / Confirmed Urinary frequency / SNOMED CT 677290968 / Confirmed Kidney stones / SNOMED CT 253733455 / Confirmed Lipoma of stomach / SNOMED CT 2121471952 / Confirmed Schatzki's ring / SNOMED CT 258242473 / Confirmed Nocturia / SNOMED CT 744999005 / Confirmed Osteoarthritis / SNOMED CT 6746052210 / Confirmed Pyelonephritis / SNOMED CT 21189996 / Confirmed Smoker / SNOMED CT 149350791 / Confirmed Added secondary to documentation in Social History. Unintentional weight loss / SNOMED CT 6684672899 / Confirmed Other urethral stricture, female / SNOMED CT 775007687 / Confirmed Urge incontinence / SNOMED CT 414494568 / Confirmed Urinary urgency / SNOMED CT 390669257 / Confirmed Urinary incontinence / SNOMED CT 3013862546 / Confirmed UTI (urinary tract infection) / SNOMED CT 623937682 / Confirmed Histories Procedure history: Esophagogastroduodenoscopy (335869336) on 01/30/2024 at 78 Years. Colonoscopy ([id number]) on 01/30/2024 at 78 Years. Colonoscopy ([id number]) on 01/13/2017 at 71 Years. Cystoscopy ([id number]) on 04/27/2016 at 70 Years. Cystoscopic removal of ureteric stent ([id number]) on 04/20/2012 at 66 Years. Cystoscopic insertion of ureteric stent ([id number]) on 04/06/2012 at 66 Years. ESWL- Right (532746087) on 04/01/2012 at 66 Years. Cysto/ BL RG ([id number]) on 09/29/2010 at 65 Years. ESWL- Right ([id number]) on 12/31/2009 at 64 (more content not included)...[facility] HospitalComment on above:Result Comment: Electronically Signed By: ANA SILVER, HANNAH\.khushi\Date and Time Signed: 07/30/24 12:28 EDT 06-11-2024 [...] your health care provider. General instructions Take lgil-moy-ledqkim and prescription medicines only as told by [...] provider. Document Revised: 07/05/2021 Document Reviewed: 07/05/2021 GoChongo Patient Education 2022 Tink. 06/11/2024 14:00:37 Hematuria, Adult Hematuria, Adult Hematuria [...] Follow these instructions at home: Medicines Take qwwd-zup-jzlbmhx and prescription medicines only as told by [...] or the blood stops without treatment. Take owrj-jdd-smioxgm and prescription medicines only as told by your health care provider. Drink enough fluid to keep your urine pale yellow. This information is not intended to replace advice given to you by your health care provider. Make sure you discuss any questions you have with your health care provider. Document Revised: 06/16/2021 Document Reviewed: 06/16/2021 GoChongo Patient Education 2022 Tink. Follow Up Care 05/21/2024 11:12:17 With:ÁNGELA JUAREZ PA-C, URL Address: [address] [place] [address] [phone] When: Unknown [facility] 08-13-2024 NotePatient Education Obstetrics and Gynecology [...] health care provider. General instructions ? Take figo-rgg-rupxggj and prescription medicines only as told by [...] help your health care (more content not included)...[facility]04-03-2024 [id number] [facility]04-02-2024 Hospital Discharge instructions Patient Education 01/30/2024 09:45:19 Colonoscopy, Care After Surgery Salam (CUSTOM) Colonoscopy Care After Surgery Please read the instructions outlined below and refer to this sheet in the next few weeks. These discharge instructions provide you with general information on caring for yourself after you leave thespital. Your doctor may also give you specific [...] worse throughout the day. 01/30/2024 09:45:16 Hemorrhoids, Wihx-rp-Uryt Hemorrhoids Hemorrhoids are swollen veins that may [...] 3 times a day. General instructions Take xioj-fop-kddcoas and prescription medicines only as told by [...] provider. Document Revised: 04/27/2022 Document Reviewed: 04/27/2022 [employer]Ch[employer] Patient Education 2022 Tink. 01/30/2024 09:45:12 Colon Polyps Colon Polyps Colon [...] hard liquor (44 mL). General instructions Take gyle-qza-rovxmpz and prescription medicines only as told by [...] provider. Document Revised: 02/03/2021 Document Reviewed: 02/03/2021 [employer]Ch[employer] Patient Education 2022 Tink. 01/30/2024 09:45:06 Endoscopy, Care After Procedure [facility] Endoscopy Care After Procedure Please read the instructions outlined below and refer to this sheet in the next few weeks. These discharge instructions provide you with general information on caring [facility] Your doctor may also give you specific [...] blood. Document Released: 05/30/2005 Document Re-Released: 04/09/2007 [employer] Patient Information Cover Lockscreen. 01/30/2024 09:44:56 Duodenitis Duodenitis Duodenitis is inflammation [...] Follow these instructions at home: Medicines Take cvmt-mqy-muaeqsw and prescription medicines only as told by [...] or drinks. ?Garlic or onions. ?Spicy foods. ?Ellsworth fruits. ?Tomato-based foods. ?Fatty or fried foods. [...] infection from a type of bacteria. Take mdcq-ymw-emrtdzp and prescription medicines only as told by your health care provider. This information is not intended to replace advice given to you by your health care provider. Make sure you discuss any questions you have with your health care provider. Document Revised: 04/26/2022 Document Reviewed: 04/27/2022 [employer] Patient Education 2022 Tink. 01/30/2024 09:44:51 Hiatal Hernia Hiatal Hernia A [...] reduce GERD symptoms. Medicines. These may include: ?Jkem-tvp-adciimd antacids. ?Medicines that make your stomach empty [...] may include: ?Fatty foods, like fried foods. ?Ellsworth fruits, like oranges or lemon. ?Other foods [...] Do not drink alcohol. General instructions Take hjki-kxo-tgdjaqa and prescription medicines only as told by [...] provider. Document Revised: 12/13/2022 Document Reviewed: 12/13/2022 [employer] Patient Education 2022 Tink. Follow Up Care 01/17/2024 15:27:54 With:Mukesh SILVER, SUKH Gimenez, [facility] Address: When: Unknown Comments:Call for any problems. The office will reach out in about one week from procedure date. [facility]03-20-2024 Hospital Discharge instructions Patient Education 01/17/2024 14:29:52 [...] Follow these instructions at home: Medicines Take sfmk-roj-gibwysj and prescription medicines only as told by [...] and water are not available, use hand utility worker woolen mill. Make sure that all people in your [...] and water are not available, use hand utility worker woolen mill. This information is not intended to replace advice given to you by your health care provider. Make sure you discuss any questions you have with your health care provider. Document Revised: 01/06/2023 Document Reviewed: 04/13/2020 [employer] Patient Education 2022 Tink. Follow Up Care 01/03/2024 11:24:19 With:Dulce Holguin CNP Address: When:1 to 2 weeks Comments:Following colonoscopy. [facility] 03-20-2024 Evaluation + Plan note Future Scheduled Tests Laboratory* Fecal WBC Lactoferrin 01/17/24 * Giardia lamblia, Direct Detection EIA 01/17/24 * O & P Exam, Routine 01/17/24 * Clostridium Difficile PCR 01/17/24 * Enteric Panel by PCR 01/17/24 [facility]10-16-2023 Evaluation note* Encounter Date Diagnosis Assessment Notes Treatment Notes Treatment Clinical Notes Jul, Pulmonary embolism (ICD-10 - I26 .99) [employer] Other 04-07-2023 NoteHISTORY: Bone density screening COMPARISON: [...] signed by Jared Morrissey on 02/03/2023 1358[facility]03-14-2023 Hospital Discharge instructions Patient Education 01/10/2023 [...] With:Rashida ELDRIDGE Address: [facility] [address] [place] [address]- Business (1) When:09/12/2023 11:49:18 [facility]10-17-2022 Evaluation note* Encounter Date Diagnosis Assessment Notes Treatment Notes Treatment Clinical Notes Jul, Pulmonary embolism (ICD-10 - I26 .99) [employer] Other 05-05-2022 NoteOPERATIVE NOTE OPERATION DATE: 03/03/2022 [...] ensuring mobility, phacoemulsification was performed in a ndyxciv-chf-eqebls-type fashion. After all nuclear material had been [...] up the following day for postoperative care. [facility] Signed and Approved by: MAYURI BROWN 04/01/2022 15:27:00[facility]05-05-2022 NoteHISTORY AND PHYSICAL EXAMINATION HISTORY: Patient [...] and go forward with her elective procedure. [facility] Signed and Approved by: MAYURI BROWN 03/04/2022 12:13:00[facility]02-16-2021 NotePatient Outreach ([facility]OVAM[facility]) CHELSEA CURRY ([id number]) 1945 F Date Time Provider Department 12/15/20 [...] Fully Assessed Order(s):SARS-COVID VACCINE 1ST DOSE APPT [[id number]] Order #: [id number] FUTURE Prescriptions as of 12/15/2020 Sig: HYDROCHLOROTHIAZIDE [...] tablet by mouth twice * * VIT C,E,ZINC,XX-ZSSGP-4-LUTEI* Take by mouth. * CHOLECALCIFEROL (VITAMIN D3) [...] More... Hiatal hernia [K44.9] Encounter Status:Closed by [employer] on 12/18/20[facility] Evaluation + Plan note Future Appointments Appointment Date:09/04/2023 12:15:00 PM Scheduled Provider:Rashida ELDRIDGE MD Location:[facility] App[facility]ment [facility] App[facility]ments Appointment Date:01/30/2024 08:45:00 AM Scheduled Provider: Location:[facility] Appointment Type:Surgery FT Future Scheduled Tests Laboratory* Fecal WBC Lactoferrin 01/17/24 * Giardia lamblia, Direct Detection EIA 01/17/24 * O & P Exam, Routine 01/17/24 * Clostridium Difficile PCR 01/17/24 * Enteric Panel by PCR 01/17/24 [facility] Evaluation + Plan note Future Appointments Appointment Date:09/10/2024 02:40:00 PM Scheduled Provider:ÁNGELA JUAREZ PA-C Location:[facility] Appointment Type:URO Office Visit Diagnostic Tests Pending * Creatinine 06/11/24 Future Scheduled Tests Laboratory* Fecal WBC Lactoferrin 01/17/24 * Giardia lamblia, Direct Detection EIA 01/17/24 * O & P Exam, Routine 01/17/24 * Clostridium Difficile PCR 01/17/24 * Enteric Panel by PCR 01/17/24 [facility] evaluation + Plan note Future Appointments Appointment Date:09/10/2024 02:40:00 PM Scheduled Provider:ÁNGELA JUAREZ PA-C Location:[facility] Appointment Type:URO Office Visit Diagnostic Tests Pending * Urine Cytology ([facility]) 06/11/24 Future Scheduled Tests Laboratory* Fecal WBC Lactoferrin 01/17/24 * Giardia lamblia, Direct Detection EIA 01/17/24 * O & P Exam, Routine 01/17/24 * Clostridium Difficile PCR 01/17/24 * Enteric Panel by PCR 01/17/24 [facility] Evaluation + Plan note Future Appointments Appointment Date:09/10/2024 02:40:00 PM Scheduled Provider:ÁNGELA JUAREZ PA-C Location:[facility] Appointment Type:URO Office Visit Future Scheduled Tests Laboratory* Fecal WBC Lactoferrin 01/17/24 * Giardia lamblia, Direct Detection EIA 01/17/24 * O & P Exam, Routine 01/17/24 * Clostridium Difficile PCR 01/17/24 * Enteric Panel by PCR 01/17/24 [facility] Evaluation + Plan note Future Appointments Appointment Date:08/08/2024 11:00:00 AM Scheduled Provider:HANNAH CHACON MD Location:[facility] Appointment Type:URO Office Visit Appointment Date:09/10/2024 02:40:00 PM Scheduled Provider:ÁNGELA JUAREZ PA-C Location:[facility] Appointment Type:URO Office Visit Future Scheduled Tests Laboratory* Fecal WBC Lactoferrin 01/17/24 * Giardia lamblia, Direct Detection EIA 01/17/24 * O & P Exam, Routine 01/17/24 * Clostridium Difficile PCR 01/17/24 * Enteric Panel by PCR 01/17/24 [facility] evaluation + Plan note Future Appointments Appointment Date:08/09/2024 02:30:00 PM Scheduled Provider: Location:[facility] Appointment Type:Surgical PAT FT Appointment Date:08/15/2024 08:30:00 AM Scheduled Provider: Location:[facility] Appointment Type:Surgery FT Appointment Date:09/10/2024 02:40:00 PM Scheduled Provider:ÁNGELA JUAREZ PA-C Location:[facility] Appointment Type:URO Office Visit Future Scheduled Tests Laboratory* Fecal WBC Lactoferrin 01/17/24 * Giardia lamblia, Direct Detection EIA 01/17/24 * O & P Exam, Routine 01/17/24 * Clostridium Difficile PCR 01/17/24 * Enteric Panel by PCR 01/17/24 [facility] evalupfdtb + Plan note Future Appointments Appointment Date:08/15/2024 08:30:00 AM Scheduled Provider: Location:[facility] Appointment Type:Surgery FT Appointment Date:09/10/2024 02:40:00 PM Scheduled Provider:ÁNGELA JURAEZ PA-C Location:[facility] Appointment Type:URO Office Visit Future Scheduled Tests Laboratory* Fecal WBC Lactoferrin 01/17/24 * Giardia lamblia, Direct Detection EIA 01/17/24 * O & P Exam, Routine 01/17/24 * Clostridium Difficile PCR 01/17/24 * Enteric Panel by PCR 01/17/24 [facility] evaluation + Plan note Future Appointments Appointment Date:09/30/2024 10:00:00 AM Scheduled Provider:HANNAH CHACON MD Location:[facility] Appointment Type:URO Office Visit Future Scheduled Tests Laboratory* Fecal WBC Lactoferrin 01/17/24 * Giardia lamblia, Direct Detection EIA 01/17/24 * O & P Exam, Routine 01/17/24 * Clostridium Difficile PCR 01/17/24 * Enteric Panel by PCR 01/17/24 [facility] Evaluation + Plan note Future Appointments Appointment Date:12/03/2024 11:20:00 AM Scheduled Provider:HANNAH CHACON MD Location:[facility] Appointment Type:URO Office Visit Future Scheduled Tests Laboratory* Fecal WBC Lactoferrin 01/17/24 * Giardia lamblia, Direct Detection EIA 01/17/24 * O & P Exam, Routine 01/17/24 * Clostridium Difficile PCR 01/17/24 * Enteric Panel by PCR 01/17/24 [facility] Evaluation + Plan note Future Appointments Appointment Date:08/11/2025 10:30:00 AM Scheduled Provider:Rashida ELDRIDGE MD Location:[facility] Appointment Type:URO Office Visit [facility] Evaluation + Plan note Future Appointments Appointment Date:03/30/2026 09:15:00 AM Scheduled Provider:Rashida ELDRIDGE MD Location:[facility] Appointment Type:URO Office Visit Future Scheduled Tests Radiology* US Renal 08/04/25 [facility] evaluation noteNo assessment information available [facility] Work Phone: evaluation note* Diagnosis Type 2 diabetes mellitus with diabetic neuropathy, without long-term current use of insulin ([facility])- Primary Essential hypertension ([facility]) Unspecified essential hypertension Generalized anxiety disorder ([facility]/HCC) Generalized anxiety disorder Acquired hypothyroidism ([facility]/HCC) Unspecified hypothyroidism Kidney stone Calculus of kidney History of pulmonary embolism Personal history of venous thrombosis and embolism Vitamin B12 deficiency (non anemic) Other B-complex deficiencies Fecal impaction ([facility]) Other impaction of intestine Hypokalemia Hypopotassemia Need for immunization against influenza Need for prophylactic vaccination and inoculation against influenza Mixed hyperlipidemia ([facility]) Mixed hyperlipidemia [facility] encounter [facility] Diagnosis Onset Date Resolution Status History of pulmonary embolism acute [facility] Work Phone: evaluation note* Diagnosis Type 2 diabetes mellitus with diabetic neuropathy, without long-term current use of insulin (CMS/HCC)- Primary Essential hypertension (CMS/HCC) Unspecified essential hypertension Mixed hyperlipidemia (CMS/HCC) Mixed hyperlipidemia Generalized anxiety disorder (CMS/HCC) Generalized anxiety disorder Acquired hypothyroidism (CMS/HCC) Unspecified hypothyroidism Gastroesophageal reflux disease without esophagitis [...] Breast screening, unspecified documented [facility] encounter [facility]* Diagnosis Intermediate stage nonexudative age-related macular degeneration of left eye- Primary Type 2 diabetes mellitus with diabetic neuropathy, without long-term current use of insulin ([facility]) Bilateral posterior capsular opacification Unspecified after-cataract Dry eyes Unspecified tear film insufficiency [facility]* Diagnosis Type 2 diabetes mellitus with diabetic neuropathy, without long-term current use of insulin ([facility])- Primary Essential hypertension Unspecified essential hypertension Mixed [...] inoculation against influenza documented in this encounter [facility] general Narrative - Reported* Type Description Date Medical History diabetes Medical Historykidney stonesMedical Historyhigh cholesterolMedical Historysleep problemsMedical Historypulmonary embolismSurgical HistoryTonsils and Adenoids Surgical HistoryTotal HysterectomySurgical HistoryAppendectomySurgical History CholysectomySurgical Historybursa removed from rt hipSurgical HistoryL4 and 5 FusionSurgical HistoryArthoscopy of rt kneeSurgical HistoryRt Rotator Cuff Surgical HistoryCarpel Tunnel RepairSurgical HistoryBladder SuspensionSurgical HistoryNasal SurgerySurgical HistoryLithotripsey, Kidney StonesSurgical History Tumor Removal from Rt side of NeckSurgical HistoryLeft Hand Surgery, extra bone removedSurgical Historyleft kneeHospitalization Historysee aboveHospitalization Historypulmonary embolism [facility]12/13/19Hospitalization HistoryFR Abd. and chest pain04/25/21Hospitalization HistoryFR as above04/29/21 [employer] Other Hospital course Narrative No data available for this section [facility] No data available for this section [facility] progress note No data available for this section [facility] Center[facility] for referral (narrative)No reason for referral information [facility] Work Phone: Summary Purpose Family History No Family History Records Found Relationship Condition Age at Onset Recorded Date/T kyler father Unknown motherDeceasedUnknownMalignant neoplasmUnknown Advance Directives No Advanced Directives Records Found Advance Directive Response Recorded Date/ Time Advance Directives Yes June 11:37am Chief Complaint and Reason for Visit Chief Complaint COVID+. 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 DATE CREATED AUTHOR AUTHOR'S ORGANIZ ATION 06/17/2024 [facility] DATE CREATED AUTHOR AUTHOR'S ORGANIZ ATION 07/31/2024 [facility] DATE CREATED AUTHOR AUTHOR'S ORGANIZ ATION 08/10/2024 [facility] DATE CREATED AUTHOR AUTHOR'S ORGANIZ ATION 08/11/2024 [facility] DATE CREATED AUTHOR AUTHOR'S ORGANIZ ATION 08/12/2024 [facility] DATE CREATED AUTHOR AUTHOR'S ORGANIZ ATION 08/15/2024 [facility] DATE CREATED AUTHOR AUTHOR'S ORGANIZ ATION 08/17/2024 [facility] DATE CREATED AUTHOR AUTHOR'S ORGANIZ ATION 08/19/2024 [facility] DATE CREATED AUTHOR AUTHOR'S ORGANIZ ATION 08/27/2024 [facility] DATE CREATED AUTHOR AUTHOR'S ORGANIZ ATION 05/22/2025 [facility] DATE CREATED AUTHOR AUTHOR'S ORGANIZ ATION 08/12/2025 [facility] DATE CREATED AUTHOR AUTHOR'S ORGANIZ ATION 08/15/2025 [facility] DATE CREATED AUTHOR AUTHOR'S ORGANIZ ATION 08/18/2025 [facility] Teams (unrecognized sec tion and content) Team Status: Active Member Role Status Dates Jared Hedrick MD Primary Care Provider Active Team Status: Inactive Member Role Status Dates Jared Hedrick MD Primary Care Provider Active St art: August 12, 2024 End: August 12, 2024See Bradley DOAttending ProviderActiveStart: August 12, 2024 End: August 12, 2024 Team Status: Inactive Member Role Status Dates Jared Hedrick MD Primary Care Provider Active Lulu Hauser NP-CAttending ProviderActiveTeam MemberRelationship SpecialtyStart DateEnd Date Jared Hedrick MD [address] [place] [address] PCP - Devoted10/30/21 Jared Hedrick MD [address] [place] [address] PCP - GeneralInternal Medicine03/23/23 Naye Jones RN [address] [place] [address] Registered NurseInternal Poqggsrt48/2/23 Mayuri Brown DO [address] [place] [address] [address] [place] [address] Referring XafmjmbliYulpgfazvsueg47/15/23 Rashida Eldridge MD [address] [place] [address] Referring PhysicianUrology01/12/24Team MemberRelationshipSpecialtyStart DateEnd Jared Hedrick MD [address] [place] [address] PCP - Devoted10/30/21 Jared Hedrick MD [address] [place] [address] PCP - GeneralInternal Medicine03/23/23 Naye Jones RN [address] [place] [address] Registered NurseInternal Khlfmvsa87/2/23 Mayuri Brown DO [facility] [address] [place] [address] Referring YjypkjbaqGdktyrmunimpp50/15/23 Rashida Eldridge MD [address] [place] [address] Referring PhysicianUrology01/12/24Team MemberRelationshipSpecialtyStart DateEnd Jared Hedrick MD [address] [place] [address] PCP - Devoted10/30/21 Jared Hedrick MD [address] [place] [address] PCP - GeneralInternal Medicine03/23/23 Mayuri Brown DO [address] [place] [address] Referring NnidnossdKdnbvcqgzbrmh51/15/23 Lili Prakash LPN Licensed Practical NurseFamily Aunahnjx94/31/24 Hannah Chacon MD [address] [place] [address] Urology01/13/25Team MemberRelationshipSpecialtyStgarrison DateEnd Jared Hedrick MD [address] [place] [address] PCP - Devoted10/30/21 Jared Hedrick MD [address] [place] [address] PCP - GeneralInternal Medicine03/23/23 Mayuri Brown DO [address] [place] [address] Referring WfmswsricVbxxqnastllqh69/15/23 Lili Prakash LPN Licensed Practical NurseFamily Cpkgxmbc71/31/24 Hannah Chacon MD [address] [facility] [place] [address] Urology01/13/25 Rashida Eldridge MD [address] [place] [address] Referring PhysicianUrology02/10/25Team MemberRelationshipSpecialtyStart DateEnd Jared Hedrick MD [address] [place] [address] PCP - Devoted10/30/21 Jared Hedrick MD [address] [place] [address] PCP - GeneralInternal Medicine03/23/23 Mayuri Brown DO [address] [place] [address] [address] [place] [address] Referring DsizdrjwiOirlbrfwtvorg18/15/23 Lili Prakash EMAIL MARKETING PROCESSOR Licensed Practical NurseFami Najnqyti64/31/24 Hannah Chacon MD [address] [facility] [place] [address] Urology01/13/25 Rashida Eldridge MD [address] [facility] [employer] [place] [address] Referring PhysicianUrology02/10/25Team MemberRelationshipSpecialtyStart End Jared Hedrick MD [address] [place] [address] PCP - Devoted10/30/21 Jared Hedrick MD [address] [place] [address] PCP - GeneralInternal Medicine03/23/23 Mayuri Brown DO [address] [place] [address] Referring TuzcsgscfIoqtaykkhacyf25/15/23 Lili Prakash LPN [address] [place] [address] Licensed Practical NurseFamily Laabzstt18/31/24 Hannah Chacon MD [address] [facility] [place] [address] Urology01/13/25 Rashida Eldridge MD [address] [facility] [place] [address] Referring PhysicianUrology02/10/25Team MemberRelationshipSpecialtyStart DateEnd Date Jared Hedrick MD [address] [place] [address] PCP - Devoted10/30/21 Jared Hedrick MD [address] [place] [address] PCP - GeneralInternal Medicine03/23/23 Mayuri Brown DO [address] [place] [address] Referring DghoofzjePalvhtdzcwrsi79/15/23 Lili Prakash LPN [address] [place] [address] Licensed Practical NurseFamily Wivnsoxi50/31/24 Hannah Chacon MD [address] [facility] [place] [address] Urology01/13/25 Rashida Eldridge MD [address] [facility] [place] [address] Referring PhysicianUrology02/10/25Team MemberRelationshipSpecialtyStart DateEnd [facility] Jared Hedrick MD [address] [place] [address] PCP - Devoted10/30/21 Jared Hedrick MD [address] [place] [address] PCP - GeneralInternal Medicine03/23/23 Mayuri Brown DO [address] [place], [place] [address] [place] [address] Referring YtzfzueorKvtfamelthvgj30/15/23 Lili Prakash LPN [address] [place] [address] Licensed Practical NurseFamily Ezrbwtbz03/31/24 Hannah Chacon MD [address] [facility] [place] [address] Urology01/13/25 Rashida Eldridge MD [address] [facility] [employer] [place] [address] Referring PhysicianUrology02/10/25Team MemberRelationshipSpecialtyStart End [facility] Jared Hedrick MD [address] [place] [address] PCP - Devoted10/30/21 Jared Hedrick MD [address] [place] [address] PCP - GeneralInternal Medicine03/23/23 Mayuri Brown DO [address] [place] [address] Referring BwihpuoksKixjfgobdhiag34/15/23 Lili Prakash LPN [address] [place] [address] Licensed Practical NurseFamily Ibaogzpo24/31/24 Hannah Chacon MD [address] [facility] [place] [address] Urology01/13/25 Rashida Eldridge MD [address] [facility] [employer] [place] [address] Referring PhysicianUrology02/10/25Team MemberRelationshipSpecialtyStart DateEnd Jared Hedrick MD [address] [place] [address] PCP - Devoted10/30/21 Jared Hedrick MD [address] [place] [address] PCP - GeneralInternal Medicine03/23/23 Mayuri Brown DO [address] [place] [address] Referring NweujprdhWlklmulmuhvwm53/15/23 Lili Prakash, EMAIL MARKETING PROCESSOR [address] [place] [address] Licensed Practical NurseFamily Leqndzgg03/31/24 Hannah Chacon MD [address] [facility] [place] [address] Urology01/13/25 Rashida Eldridge MD [address] [place] [address] Referring PhysicianUrology02/10/25 Team Status: Inactive Member Role Status Dates Jared Hedrick MD Primary Care Provider Active St art: August 14, 2025 End: August 14[facility] J[facility] Davis MDAttjames ProviderActiveStart: August 14, 2025 End: August 14, 2025 Goals (unrecognized section and content) Goals may [...] may be documented in an alternate section REASON FOR VISIT (unrecogniz ed section and content) ReasonComments3 Month Follow UpReasonComments6 Month Follow-up of Chronic ConditionsReview lab drawn 02/04/2025Medicare Annual Wellness Visit Subsequent ReasonCommentsBlurred VisionDiabetic Eye ExamReasonComments6 mos ovReview lab FOR RECORDS PERTAINING TO PATIENTS WHO ARE [...] BE BASED ON THE PRIMARY CLINICAL RECORDS. [facility]. provides no warranty or guarantee of the accuracy or completeness of information in this document.
[2025-08-22 13:11] LABS: Blood Urea Nitrogen 15.0 mg/dL (7.0-18.0); Calcium 9.5 mg/dL (8.5-10.1); Carbon Dioxide 30.3 mmol/L (21.0-32.0); Chloride 102 mmol/L (98-107); Estimated GFR (African America >60 (>=60 mL/min/1.73m^2); Estimated GFR (Non-African Ame >60 (>=60 mL/min/1.73m^2); Sodium 142 mmol/L (136-145); Uric Acid 4.3 mg/dL (2.6-6.0)
[2025-08-22 14:02] LABS: Calcium 24 Hour Urine 105.3 mg/24hr (100.0-300.0); Creatinine 24 Hour Urine 907.20 mg/24 hr (800.00-1800.00); Total Volume 24 Hour Urine 1620 mL/24hr
[2025-08-23 12:10] LABS: Magnesium, U 4.2 mg/dL (Not Estab.); Magnesium,Urine 24hr 68.0 mg/24 hr (12.0-293.0); Phosphorus, Urine 26.1 mg/dL (Not Estab.); Phosphorus,Urine 24h 423 mg/24 hr (96-706); Uric Acid, Urine 31.0 mg/dL (Not Estab.); Uric Acid,Urine 24hr 502.2 mg/24 hr (88.9-568.5)
[2025-08-26 16:39] LABS: BOX Test Reference Lab CLEVELAND CLINIC; BOX Test Sent Out OXALATE URINE 24 HR
[2025-08-26 16:40] LABS: BOX Test Result 10/27/25
[2025-08-27 07:08] LABS: Citric Acid, U, 24hr 959 mg/24 hr (320-1240); Citric Acid, Urine 592 mg/L (Undefined)
== END 2025-08-22 12:18 | disposition home or self-care (01) ==
LOC: LAB 12:18
PROVIDERS: PCP Internal Medicine; Visit Provider Urology
DX: N20.0 Calculus of kidney (principal)
CPT/HCPCS: 36415; 82310; 82340; 82374; 82435; 82507; 82565; 82570; 83735; 83945; 83970; 84100; 84105; 84295; 84300; 84520; 84550; 84560